=== PATIENT | female | born 2005 | race Caucasian/White ===

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

== ENCOUNTER 2024-01-12 13:36 | Outpatient (REF) | payer MEDICAID, SELFPAY | END 2024-01-12 13:37 | disposition home or self-care (01) | LOC: LBN 13:36 | PROVIDERS: Visit Provider Obstetrics & Gynecology Gynecology | DX: N89.8 Other specified noninflammatory disorders of vagina (principal) | CPT/HCPCS: 87480; 87510; 87660 ==

== ENCOUNTER 2024-02-03 12:32 | Outpatient (REF) | payer MEDICAID, SELFPAY ==
--- OUTSIDE RECORDS SUMMARY | 2024-02-03 12:34 | XMS_ITS | Continuity of Care Document ---
Author Organization [facility] Ambulatory Clinics Address [address] [place] [address] Care Team Providers Care Curb Hop Name Role Phone Barbara Orourke MD Primary Care Physician Encounter [facility] NBR [id number] Date(s): 03/16/23 - 03/16/23 [facility] [address], [place] [address] Encounter Diagnosis URI with cough and congestion(Discharge Diagnosis) - 03/16/23 Discharge Disposition: Home or Self Care Attending Physician: KEREN Porter Allergies, Adverse Reactions, Alerts No Known Allergies Assessment and Plan Extracted from: Title:Office Visit Note Author:KEREN Porter Date:03/16/23 1.??URI with cough and conge stion??J06.9 Short duration typical viral progression without focal bacterial signs. ??Vital signs are normal. 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 Follow-up if not improving. ??Cough medicine prescribed with bronchodilator which hopefully help her stay out of the hospital or respiratory problems as she navigates his viral illness. Ordered: Albuterol (Eqv-ProAir HFA) 90 mcg/inh inhalation aerosol, 2 puffs, Inhale, every 6 hr, # 8.5 g, 0 Refill(s) Tessalon Perles 100 mg oral capsule, 100 mg = 1 cap, Oral, TID, PRN as needed for cough, # 21 cap, 0 Refill(s) SARS-CoV-2 (COVID-19)/Flu/RSV (GeneXpert), Nasopharyngeal Swab, Routine Collect, 03/16/23, Once, Nurse collect, Print Label, URI with cough and congestion, Order for future visit ?? Future Scheduled Tests Laboratory* Urine Culture 01/03/23 * Chlamydia trachomatis and Neisseria gonorrhoeae (GeneXpert) 01/03/23 Immunizations Given and Recorded Vaccine Date Status Refusal Reason varicella virus vaccine 1 10/18/09 Recorded varicella virus vaccine 2 08/30/05 Recorded measles/mumps/rubella virus vaccine 3 10/18/09 Rec orded measles/mumps/rubella virus vaccine 4 08/30/05 Rec orded diphth/tetanus/pertussis,acel/hepB/polio 5 10/18/09 Recorded diphth/tetanus/pertussis,acel/hepB/polio 6 08/30/05 Recorded diphth/tetanus/pertussis,acel/hepB/polio 7 04 Recorded diphth/tetanus/pertussis,acel/hepB/polio 8 04 Recorded pneumococcal 13-valent conjugate vaccine 9 08/30/05 Recorded pneumococcal 13-valent conjugate vaccine 10 04 Recorded pneumococcal 13-valent conjugate vaccine 11 04 Recorded haemophilus b conjugate (PRP-T) vaccine 12 04 Recorded haemophilus b conjugate (PRP-T) vaccine 13 04 Recorded hepatitis B pediatric vaccine 14 04 Recorded 1Result Comment: Unit: Unknown 2Result Comment: Unit: Unknown 3Result Comment: Unit: Unknown 4Result Comment: Unit: Unknown 5Result Comment: Unit: Unknown 6Result Comment: Unit: Unknown 7Result Comment: Unit: Unknown 8Result Comment: Unit: Unknown 9Result Comment: Unit: Unknown 10Result Comment: Unit: Unknown 11Result Comment: Unit: Unknown 12Result Comment: Unit: Unknown 13Result Comment: Unit: Unknown 14Result Comment: Unit: Unknown Medications Albuterol (Eqv-ProAir HFA) 90 mcg/inh inhalation aerosol 2 puffs, Inhale, every 6 hr, # 8.5 g, 0 Refill(s) Start Date: 03/16/23 Stop Date: 04/15/23 Status: Ordered Depo-Provera Contraceptive 150 mg/mL intramuscular suspension 1 Unknown, 0 Refill(s) Start Date: 11/29/21 Status: Ordered fosfomycin 3 g oral granule for reconstitution 3 g = 1 EA, Oral, Once, # 1 packets, 0 Refill(s), [facility]: [id number], 162, cm, 08/15/22 18:08:00 EDT, Height/Length Dosing, 42.64, kg, 01/15/23 20:27:00 EST, Weight Dosing Start Date: 01/15/23 Status: Ordered ondansetron 4 mg oral tablet, disintegrating 4 mg = 1 tab, Oral, TID, # 10 tab, 0 Refill(s), [facility]: [id number], 162, cm, 02/25/23 11:58:00 EST, Height, 40.8, kg, 02/25/23 12:04:00 EST, Weight Dosing Start Date: 02/25/23 Status: Ordered Tessalon Perles 100 mg oral capsule 100 mg = 1 cap, Oral, TID, PRN as needed for cough, # 21 cap, 0 Refill(s) Start Date: 03/16/23 Stop Date: 03/23/23 Status: Ordered Problem List Condition Confirmation Course Effective Dates Status H ealth Status Informant Amenorrhea Confirmed Active Anxiety Confirmed Active Decrease in appetite Confirmed Active Epigastric pain Confirmed Active Lipoma of abdominal wall Confirmed Active Loss of taste Confirmed Active Major depression, single episode Confirmed Active Menometrorrhagia Confirmed Active Nausea Confirmed Active Patient encounter status Confirmed Active Vital Signs Most recent to oldest [Reference Range]: 1 Temperature Tympanic [36.6-38.1 Deg C] 3 7.2 Deg C (03/16/23 5:57 PM) Peripheral Pulse Rate [60-100 bpm] 112 b pm *HI* (03/16/23 5:57 PM) Blood Pressure [90-140/60-90 mmHg] 114/4 3mmHg (03/16/23 5:57 PM) Mean Arterial Pressure, Cuff [70-110 mmH g] 67 mmHg *LOW* (03/16/23 5:57 PM) Weight 42.00 kg (03/16/23 5:57 PM) Weight Measured (lbs) 92.594 lb (03/16/23 5:57 PM) Weight Dosing 42.000 kg (03/16/23 5:57 PM) Weight Percentile 0.58 1 (03/16/23 5:57 PM) 1Result Comment: ^~:!Percentile Source -[facility] [place] Social History Social History Type Response Tobacco Never tobacco user, smokeless tobacco daily Tobacco Use:. Sex Female Hospital Discharge Instructions Patient Education 03/16/2023 17:13:10 Viral Respiratory Infection, Anlt-Fg-Uvhq Viral Respiratory Infection A viral respiratory infection is an illness that affects parts of the body that are used for breathing. These include the lungs, nose, and throat. It is caused by a germ called a virus. Some examples of this kind of infection are: ??? A cold. ??? The flu (influenza). ??? A respiratory syncytial virus (RSV) infection. What are the causes? This condition is caused by a virus. It spreads from person to person. You can get the virus if: ??? You breathe in droplets from someone who is sick. ??? You come in contact with people who are sick. ??? You touch mucus or other fluid from a person who is sick. What are the signs or symptoms? Symptoms of this condition include: ??? A stuffy or runny nose. ??? A sore throat. ??? A cough. ??? Shortness of breath. ??? Trouble breathing. ??? Yellow or green fluid in the nose. Other symptoms may include: ??? A fever. ??? Sweating or chills. ??? Tiredness (fatigue). ??? Achy muscles. ??? A headache. How is this treated? This condition may be treated with: ??? Medicines that treat viruses. ??? Medicines that make it easy to breathe. ??? Medicines that are sprayed into the nose. ??? Acetaminophen or NSAIDs, such as ibuprofen, to treat fever. Follow these instructions at home: Managing pain and congestion ??? Take zdjq-oto-oyhbopt and prescription medicines only as told by your doctor. ??? If you have a sore throat, gargle with salt water. Do this 3???4 times a day or as needed. ??? To make salt water, dissolve ?1 tsp (3???6 g) of salt in 1 cup (237 mL) of warm water. Makesure that all the salt dissolves. ??? Use nose drops made from salt water. This helps with stuffiness (congestion). It also helps soften the skin around your nose. ??? Take 2 tsp (10 mL) of honey at bedtime to lessen coughing at night. ??? Do not give honey to children who are younger than 1 year old. ??? Drink enough fluid to keep your pee (urine) pale yellow. General instructions ??? Rest as much as possible. ??? Do not drink alcohol. ??? Do not smoke or use any products that contain nicotine or tobacco. If you need help quitting, ask your doctor. ??? Keep all follow-up visits. How is this prevented? Get a flu shot every year. Ask your doctor when you should get your flu shot. ??? Do not let other people get your germs. If you are sick: ??? Wash your hands with soap and water often. Wash your hands after you cough or sneeze. Wash hands for at least 20 seconds. If you cannot use soap and water, use hand beam saw operator. ??? Cover your mouth when you cough. Cover your nose and mouth when you sneeze. ??? Do not share cups or eating utensils. ??? Clean commonly used objects often. Clean commonly touched surfaces. ??? Stay home from work or school. ??? Avoid contact with people who are sick during cold and flu season. This is in fall and winter. Get help if: ??? Your symptoms last for 10 days or longer. ??? Your symptoms get worse over time. ??? You have very bad pain in your face or forehead. ??? Parts of your jaw or neck get very swollen. ??? You have shortness of breath. Get help right away if: ??? You feel pain or pressure in your chest. ??? You have trouble breathing. ??? You faint or feel like you will faint. ??? You keep vomiting and it gets worse. ??? You feel confused. These symptoms may be an emergency. Get help right away. Call your local emergency services (911 inthe [place] ??? Do not wait to see if the symptoms will go away. ??? Do not drive yourself to the hospital. Summary ??? A viral respiratory infection is an illness that affects parts of the body that are used for breathing. ??? Examples of this illness include a cold, the flu, and a respiratory syncytial virus (RSV) infection. ??? The infection can cause a runny nose, cough, sore throat, and fever. ??? Follow what your doctor tells you about taking medicines, drinking lots of fluid, washing your hands, resting at home, and avoiding people who are sick. This information is not intended to replace advice given to you by your health care provider. Make sure you discuss any questions you have with your health care provider. Document Revised: 05/03/2021 Document Reviewed: 05/03/2021 [employer] Patient Education ?? 2022 [email or web address]. Physician Outpatient Note * KEREN Porter: PERFORM Event Display: Office Clinic Note Physician Authored Date: [id number] JOSE ROBERTO BALBUENA :2005 Age:18 years Sex:Female Visit Date:03/16/2023 Primary Care Physician: Barbara Orourke MD Chief Complaint yesterday woke up with sore throat,lungs hurt to breathe and her throat hurts when she coughs. beenthis way for about a day now. History of Present Illness Patient started yesterday with sore throat and cough. ??Hurts to cough now. ??Cough is been nonproductive. ??No associated fever, chills. 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 ??Home COVID testing was negative.?? She denies any runny nose. ??No headache.?? She hashad similar symptoms in the past and she is concerned about pneumonia. Physical Exam Vitals & Measurements T:??37.2?C ??(Tympanic)?? HR:??112??(Peripheral)?? BP:??114/43?? SpO2:??100%?? WT:??0.58??(Percentile)?? WT:??42.00??kg?? General: Alert and oriented, well nourished, no acute distress. Eye:??Pupils are reactive, conjunctiva clear. HENT: Normocephalic, clear tympanic membranes, throat clear no exudate and uvula is midline Neck: Supple, non-tender, no lymphadenopathy Lungs: Clear to auscultation, non-labored respiration. Heart: Normal rate, regular rhythm, no murmur, gallop or edema. Abdomen: Soft, non-tender, non-distended, no masses. Musculoskeletal: Normal range of motion and strength, no tenderness or swelling. Skin: Skin is warm, dry, no rashes or lesions in examined areas. Neurologic: Awake, alert and oriented X3, normal cognition and interaction. Psychiatric: Cooperative, appropriate mood and affect. Assessment/Plan 1.??URI with cough and congestion??J06.9 Short duration typical viral progression without focal bacterial signs. ??Vital signs are normal. 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 Follow-up if not improving. ??Cough medicine prescribed with bronchodilator which hopefully help her stay out of the hospital or respiratory problems as she navigates his viral illness. Ordered: Albuterol (Eqv-ProAir HFA) 90 mcg/inh inhalation aerosol, 2 puffs, Inhale, every 6 hr, # 8.5 g, 0 Refill(s) Tessalon Perles 100 mg oral capsule, 100 mg = 1 cap, Oral, TID, PRN as needed for cough, # 21 cap, 0 Refill(s) SARS-CoV-2 (COVID-19)/Flu/RSV (GeneXpert), Nasopharyngeal Swab, Routine Collect, 03/16/23, Once, Nurse collect, Print Label, URI with cough and congestion, Order for future visit ?? Patient Instructions Recommend fluids, rest, use cough medicine as needed use inhaler every 4-6 hours for the next 4 days. ??We will call with your test results tomorrow. Future Orders SARS-CoV-2 (COVID-19)/Flu/RSV (GeneXpert), Nasopharyngeal Swab, Routine Collect, 03/16/23, Once, Nurse collect, Print Label, URI with cough and congestion, Order for future visit Patient Education Viral Respiratory Infection, Ypet-Yf-Hhgx Problem List/Past Medical History Ongoing Amenorrhea Anxiety Decrease in appetite Epigastric pain Lipoma of abdominal wall Loss of taste Major depression, single episode Menometrorrhagia Nausea Patient encounter status Historical No qualifying data Medications Albuterol (Eqv-ProAir HFA) 90 mcg/inh inhalation aerosol, 2 puffs, Inhale, every 6 hr Depo-Provera Contraceptive 150 mg/mL intramuscular suspension fosfomycin 3 g oral granule for reconstitution, 3 g= 1 EA, Oral, Once ondansetron 4 mg oral tablet, disintegrating, 4 mg= 1 tab, Oral, TID Tessalon Perles 100 mg oral capsule, 100 mg= 1 cap, Oral, TID, PRN Allergies No Known Allergies No Known Medication Allergies Social History Alcohol Never Electronic Cigarette/Vaping Electronic Cigarette Use: Use, within last 90 days. Use per Day: 1-25 Inhales/day. Tobacco Never tobacco user, smokeless tobacco daily Tobacco Use:. Immunizations Vaccine Date Status varicella virus vaccine 10/18/2009 Recorded Comments : Unit: Unknown measles/mumps/rubella virus vaccine 10/18/2009 Recorded Comments : Unit: Unknown diphth/tetanus/pertussis,acel/hepB/polio 10/18/2009 Recorded Comments : Unit: Unknown varicella virus vaccine 08/30/2005 Recorded Comments : Unit: Unknown measles/mumps/rubella virus vaccine 08/30/2005 Recorded Comments : Unit: Unknown pneumococcal 13-valent conjugate vaccine 08/30/2005 Recorded Comments : Unit: Unknown diphth/tetanus/pertussis,acel/hepB/polio 08/30/2005 Recorded Comments : Unit: Unknown pneumococcal 13-valent conjugate vaccine 2004 Recorded Comments : Unit: Unknown haemophilus b conjugate (PRP-T) vaccine 2004 Recorded Comments : Unit: Unknown diphth/tetanus/pertussis,acel/hepB/polio 2004 Recorded Comments : Unit: Unknown diphth/tetanus/pertussis,acel/hepB/polio 2004 Recorded Comments : Unit: Unknown haemophilus b conjugate (PRP-T) vaccine 2004 Recorded Comments : Unit: Unknown pneumococcal 13-valent conjugate vaccine 2004 Recorded Comments : Unit: Unknown hepatitis B pediatric vaccine 2004 Recorded Comments : Unit: Unknown Electronically Signed on 03/16/23 06:24 PM KEREN Porter Outpatient Summary note * KEREN Porter: PERFORM Event Display: Ambulatory Patient Summary Authored Date: [id number] JOSE ROBERTO BALBUENA :2005 Age:18 years Sex:Female Visit Date:03/16/2023 Primary Care Physician: Barbara Orourke MD Ambulatory Visit Instructions We would like to thank you for allowing us to assist you with your healthcare needs. The following includes patient education materials and information regarding your injury/illness. Your Next Steps Instructions From Your Care Team Recommend fluids, rest, use cough medicine as needed use inhaler every 4-6 hours for the next 4 days. ??We will call with your test results tomorrow. You Need to Complete the Following SARS-CoV-2 (COVID-19)/Flu/RSV (GeneXpert), Nasopharyngeal Swab, Routine Collect, 03/16/23, Once, Nurse collect, Print Label, URI with cough and congestion, Order for future visit Medications What How Much When Why Instructions New albuterol (Albuterol (Eqv-ProAir HFA) 90 mcg/ inh inhalation aerosol) 2 Puffs Inhale (breathe in) Every 6 hours URI with cough and congestion Duration: 30 Days Printed Prescription New benzonatate (Tessalon Perles 100 mg oral capsule) 1 Capsules Oral (given by mouth) 3 times a day as needed for as needed for cough URI with cough and congestion Duration: 7 Days Printed Prescription Unchanged fosfomycin (fosfomycin 3 g oral granule for reconstitution) 1 Each Oral (given by mouth) Once Dysuria Unchanged medroxyPROGESTERone (Depo-Provera Contraceptive 150 mg/ mL intramuscular suspension) 1 Unknown ?? Unchanged ondansetron (ondansetron 4 mg oral tablet, disintegrating) 1 tab Oral (given by mouth) 3 times a day Influenza-like illness Your Summary Your Diagnosis URI with cough and congestion Problems Ongoing - Any problem that you are currently receiving treatment for. Amenorrhea Anxiety Decrease in appetite Epigastric pain Lipoma of abdominal wall Loss of taste Major depression, single episode Menometrorrhagia Nausea Patient encounter status Your Care Team Attending Physician - KEREN Porter Primary Care Physician - Barbara Orourke MD Discharge Vitals Temperature??(Tympanic) 99.0 ??F (37.2 ??C) Heart Rate??(Peripheral) 112 Blood Pressure?? 114/43?? Weight?? 92.61 lb (42.00 kg) Allergies No Known Allergies No Known Medication Allergies Education Materials Viral Respiratory Infection A viral respiratory infection is an illness that affects parts of the body that are used for breathing. These include the lungs, nose, and throat. It is caused by a germ called a virus. Some examples of this kind of infection are: ? A cold. ? The flu (influenza). ? A respiratory syncytial virus (RSV) infection. What are the causes? This condition is caused by a virus. It spreads from person to person. You can get the virus if: ? You breathe in droplets from someone who is sick. ? You come in contact with people who are sick. ? You touch mucus or other fluid from a person who is sick. What are the signs or symptoms? Symptoms of this condition include: ? A stuffy or runny nose. ? A sore throat. ? A cough. ? Shortness of breath. ? Trouble breathing. ? Yellow or green fluid in the nose. Other symptoms may include: ? A fever. ? Sweating or chills. ? Tiredness (fatigue). ? Achy muscles. ? A headache. How is this treated? This condition may be treated with: ? Medicines that treat viruses. ? Medicines that make it easy to breathe. ? Medicines that are sprayed into the nose. ? Acetaminophen or NSAIDs, such as ibuprofen, to treat fever. Follow these instructions at home: Managing pain and congestion ? Take dwhl-owq-ptepzmi and prescription medicines only as told by your doctor. ? If you have a sore throat, gargle with salt water. Do this 3???4 times a day or as needed. ? To make salt water, dissolve ?1 tsp (3???6 g) of salt in 1 cup (237 mL) of warm water. Make sure that all the salt dissolves. ? Use nose drops made from salt water. This helps with stuffiness (congestion). It also helps soften the skin around your nose. ? Take 2 tsp (10 mL) of honey at bedtime to lessen coughing at night. ? Do not give honey to children who are younger than 1 year old. ? Drink enough fluid to keep your pee (urine) pale yellow. General instructions ? Rest as much as possible. ? Do not drink alcohol. ? Do not smoke or use any products that contain nicotine or tobacco. If you need help quitting, ask your doctor. ? Keep all follow-up visits. How is this prevented? Get a flu shot every year. Ask your doctor when you should get your flu shot. ? Do not let other people get your germs. If you are sick: ? Wash your hands with soap and water often. Wash your hands after you cough or sneeze. Wash hands for at least 20 seconds. If you cannot use soap and water, use hand beam saw operator. ? Cover your mouth when you cough. Cover your nose and mouth when you sneeze. ? Do not share cups or eating utensils. ? Clean commonly used objects often. Clean commonly touched surfaces. ? Stay home from work or school. ? Avoid contact with people who are sick during cold and flu season. This is in fall and winter. Get help if: ? Your symptoms last for 10 days or longer. ? Your symptoms get worse over time. ? You have very bad pain in your face or forehead. ? Parts of your jaw or neck get very swollen. ? You have shortness of breath. Get help right away if: ? You feel pain or pressure in your chest. ? You have trouble breathing. ? You faint or feel like you will faint. ? You keep vomiting and it gets worse. ? You feel confused. These symptoms may be an emergency. Get help right away. Call your local emergency services (911 int [place] ? Do not wait to see if the symptoms will go away. ? Do not drive yourself to the hospital. Summary ? A viral respiratory infection is an illness that affects parts of the body that are used for breathing. ? Examples of this illness include a cold, the flu, and a respiratory syncytial virus (RSV) infection. ? The infection can cause a runny nose, cough, sore throat, and fever. ? Follow what your doctor tells you about taking medicines, drinking lots of fluid, washing your hands, resting at home, and avoiding people who are sick. This information is not intended to replace advice given to you by your health care provider. Make sure you discuss any questions you have with your health care provider. Document Revised: 05/03/2021 Document Reviewed: 05/03/2021 Else[employer] Patient Education ?? 2022 [employer] Electronically Signed on: 03/16/2023 18:13 ESTSigned by:BT Patient Care team information Care Team Personnel Name: Barbara Orourke MD Position: No Access Member Role: Primary Care Physician Address: Address: [address] [place] [id number] Name: Krystal Kurtz APRN Position: No Access Member Role: Nurse Practitioner Address: Address: [address] [place] [id number] Care Team Related Persons Name: FAIZA BALBUENA Name: ALVARO BALBUENA Address: [address] [place], [place] [id number] Name: CAROLINA BALBUENA Address: [facility]
--- OUTSIDE RECORDS SUMMARY | 2024-02-03 12:34 | XMS_ITS | Continuity of Care Document ---
Author Organization [facility] Ambulatory Clinics Address [address] [place] [address] Care Team Providers Care Product Management Manager Name Role Phone JAMES ELIZABETH Primary Care Physician Encounter [facility] NBR [id number] Date(s): 12/24/23 - 12/24/23 [facility] Ambulatory Clinics [address] [place] [address]- [place] Encounter Diagnosis Vaginitis(Discharge Diagnosis) - 12/24/23 Acute vaginitis(Final) - Discharge Disposition: Home or Self Care Attending Physician: Hiwot Pelaez PA-C Allergies, Adverse Reactions, Alerts Substance Criticality Severity Reaction Reaction Severity Status penicillin High criticality Moderate Rash Ac tive Assessment and Plan Extracted from: Title:[facility] Urgent Care Office Visit Note Author:Clarissa Pelaez PA-C Date:12/24/23 1.??Vaginitis??N76.0 ??Patient presenting with vaginal itching, burning,??discharge.?? She is not experiencing any urgency or frequency.?? No pelvic pain.?? No new sexual partners, had negative STI screening 3 weeks ago.?? She is very prone to??yeast infections as well as bacterial vaginosis and??was recently prescribed 3 different rounds of antibiotics.?? Recommended??obtaining a vaginitis panel today which she was receptive to. ??Patient opted to??perform a self swab and deferred LOCOMOTIVE INSPECTOR??exam.?? I will follow-up with her pending results of the studies. ??Encourage she stay well- hydrated in the meantime. ??Wash the vaginal area with water only and avoid any scented??products, lubricants.?? Recheck as needed??if worsening Ordered: Xpress MVP (GeneXpert), Vaginal, Routine Collect, 12/24/23, Once, Nurse collect, Vaginitis, Order for future visit ?? Future Scheduled Tests Laboratory* Urine Culture 01/03/23 * Chlamydia trachomatis and Neisseria gonorrhoeae (GeneXpert) 01/03/23 Radiology* US Transvaginal Non-OB 06/28/23 * CT Abdomen and Pelvis w/ Contrast 08/15/23 Immunizations Given and Recorded Vaccine Date Status [...] Unit: Unknown 14Result Comment: Unit: Unknown Medications busPIRone 5 mg oral tablet TAKE 1/2 TO 1 TABLET BY MOUTH UP TO THREE TIMES DAILY NEEDED Start Date: 12/01/23 Status: Ordered Depo-Provera Contraceptive 150 mg/mL intramuscular suspension 1 Unknown, 0 Refill(s) Start Date: 11/29/21 Status: Ordered FLUoxetine 0 Refill(s) Start Date: 10/28/23 Status: Ordered hydrOXYzine 0 Refill(s) Start Date: 10/28/23 Status: Ordered hyoscyamine 0 Refill(s) Start Date: 10/28/23 Status: Ordered metroNIDAZOLE 0.75% vaginal gel with applicator INSERT 1 APPLICATORFUL VAGINALLY TWICE DAILY FOR 5 DAYS Start Date: 12/01/23 Status: Ordered Miconazole 7 vaginal cream with applicator 1 alice, Vaginal, every night at bedtime, # 45 g, 0 Refill(s), Pharmacy: [facility] #[id number], 162, cm, 12/15/23 22:27:00 EST, Height, 45, kg, 12/15/23 22:29:00 EST, Weight Dosing Start Date: 12/24/23 Status: Ordered ondansetron 4 mg oral tablet, disintegrating 4 mg = 1 tab, Oral, TID, # 10 tab, 0 Refill(s), Pharmacy: [facility] #[id number], 162, cm, 02/25/23 11:58:00 EST, Height, 40.8, kg, 02/25/23 12:04:00 EST, Weight Dosing Start Date: 02/25/23 Status: Ordered Problem List Condition Confirmation Course Effective Dates Status H ealth Status Informant Amenorrhea Confirmed Active Anxiety Confirmed Active Decrease in appetite Confirmed Active Epigastric pain Confirmed Active Lipoma of abdominal wall Confirmed Active Loss of taste Confirmed Active Major depression, single episode Confirmed Active Menometrorrhagia Confirmed Active Nausea Confirmed Active Patient encounter status Confirmed Active Tonsillitis Confirmed Active Vital Signs Most recent to oldest [Reference Range]: 1 Temperature Temporal Artery [36-38 Deg C ] 36.7 Deg C (12/24/23 11:40 AM) Peripheral Pulse Rate [60-100 bpm] 96 bp m (12/24/23 11:40 AM) Respiratory Rate [12-24 br/min] 16 br/mi n (12/24/23 11:40 AM) Blood Pressure [90-120/60-80 mmHg] 95/52 mmHg (12/24/23 11:40 AM) Mean Arterial Pressure, Cuff [65-140 mmH g] 66 mmHg (12/24/23 11:40 AM) Social History Social History Type Response Tobacco Never tobacco user, smokeless tobacco daily Tobacco Use:. Sex Female Sex Representation Female (finding) Physician Outpatient Note * Hiwot Pelaez PA-C: PERFORM Event Display: Office Clinic Note Physician Authored Date: [id number] JOSE ROBERTO BALBUENA Elly :2005 Age:18 years Sex:Female Visit Date:12/24/2023 Primary Care Physician: JAMES ELIZABETH Chief Complaint X2 months yeast infections/BV. green/yellow discharge with itchyness and burning. Has been on antibiotics for strep 3 times. Last treated for yeast/bv in september. History of Present Illness This is a 18-year-old female who presents for evaluation of possible yeast infection or BV. ??Patient notes that she is very prone??to yeast infections and bacterial vaginosis.?? She has taken 3 rounds of antibiotics over the last several months??due to recurrent strep infections.?? Over the last week she has had vaginal itching, burning that is persistent as well as??a whitish, yellowish discharge.?? She has not had any pelvic pain. ??No urinary urgency, frequency. ??Symptoms do not feel similar to previous UTI.?No fever, chills, nausea, vomiting, malaise. ??She denies any new sexual partners??and??had a negative STI test??3 weeks ago. Physical Exam Vitals & Measurements T:??36.7?C ??(Temporal Artery)?? HR:??96??(Peripheral)?? RR:??16?? BP:??95/52?? SpO2:??99%?? General: A&O x 3, well-built and hydrated, no acute distress Heart: normal S1S2, no murmurs, rubs, gallops Lungs: equal and symmetric respiratory effort, lungs clear to auscultation without wheezes, rales, rhonchi Abdomen: soft, non-distended, bowel sounds normoactive, no tenderness, rebound, guarding, rigidity LOCOMOTIVE INSPECTOR: deferred Assessment/Plan 1.??Vaginitis??N76.0 ??Patient presenting with vaginal itching, burning,??discharge.?? She is not experiencing any urgency or frequency.?? No pelvic pain.?? No new sexual partners, had negative STI screening 3 weeks ago.?? She is very prone to??yeast infections as well as bacterial vaginosis and??was recently prescribed 3 different rounds of antibiotics.?? Recommended??obtaining a vaginitis panel today which she was receptive to. ??Patient opted to??perform a self swab and deferred LOCOMOTIVE INSPECTOR??exam.?? I will follow-up with her pending results of the studies. ??Encourage she stay well-hydrated in the meantime. ??Wash thevaginal area with water only and avoid any scented??products, lubricants.?? Recheck as needed??if worsening Ordered: Xpress MVP (GeneXpert), Vaginal, Routine Collect, 12/24/23, Once, Nurse collect, Vaginitis, Order for future visit ?? Future Orders Xpress MVP (GeneXpert), Vaginal, Routine Collect, 12/24/23, Once, Nurse collect, Vaginitis, Order for future visit Problem List/Past Medical History Ongoing Amenorrhea Anxiety Decrease in appetite Epigastric pain Lipoma of abdominal wall Loss of taste Major depression, single episode Menometrorrhagia Nausea Patient encounter status Tonsillitis Historical No qualifying data Medications busPIRone 5 mg oral tablet Depo-Provera Contraceptive 150 mg/mL intramuscular suspension FLUoxetine hydrOXYzine hyoscyamine metroNIDAZOLE 0.75% vaginal gel with applicator ondansetron 4 mg oral tablet, disintegrating, 4 mg= 1 tab, Oral, TID Allergies penicillin??(Rash) Social History Alcohol Never Electronic Cigarette/Vaping Electronic [...] Comments : Unit: Unknown Electronically Signed on 12/24/2023 11:54 EST Hiwot Pelaez PA-C Patient Care team information Care Team Personnel Name: Krystal Kurtz APRN Position: Physician Member Role: Nurse Practitioner Address: [address] [place] [address] [place] [address] Name: JAMES ELIZABETH Position: No Access Member Role: Primary Care Physician Address: [facility] [address] Care Team Related Persons Name: FAIZA BALBUENA Insurance Providers Guarantor name: JOSE ROBERTO BALBUENA Health Plan Information #: 1 Payer: [place] Member Number: [id number] Policy Number: NA Health Plan Information #: 2 Payer: [place] Member Number: [id number] Policy Number: [place] Health Plan Information #: 3 Payer: [place] Member Number: [id number] Policy Number: NA
--- OUTSIDE RECORDS SUMMARY | 2024-02-03 12:34 | XMS_ITS | Continuity of Care Document ---
Author Organization [facility] Address [address] [place] [address] Care Team Providers Care Case Preparer And Liner Name Role Phone MELVA WATTS APRN Primary Care Physician [phone] Encounter [facility] NBR [id number] Date(s): 06/27/23 - 06/27/23 [facility] [address] [place] [address]- Discharge Disposition: Home or Self Care Attending Physician: Hiwot Pelaez PA-C Admitting Physician: Hiwot Pelaez PA-C Allergies, Adverse Reactions, Alerts No Known Allergies Assessment and Plan Future Appointments Future Scheduled Tests Laboratory* Urine Culture 01/03/23 [...] every 6 hr, # 8.5 g, 0 Refill(s), Pharmacy: [facility] #[id number], 162, cm, 02/25/23 11:58:00 EST, Height, 42, kg, 03/16/23 18:01:00 EST, Weight Dosing Start Date: 03/17/23 Stop Date: 04/16/23 Status: Ordered Depo-Provera Contraceptive 150 mg/mL intramuscular suspension 1 Unknown, 0 Refill(s) Start Date: 11/29/21 Status: Ordered ondansetron 4 mg oral tablet, disintegrating 4 mg = 1 tab, Oral, TID, # 10 tab, 0 Refill(s), Pharmacy: [facility] #[id number], 162, cm, 02/25/23 11:58:00 EST, Height, 40.8, [...] Confirmed Active Patient encounter status Confirmed Active Results Laboratory List Name Date Xpress MVP (GeneXpert) (Vaginitis PCR Pa adam) 06/27/23 Most recent to oldest [Reference Range]: 1 Bacterial Vaginosis MVP (GeneXpert) [Neg ative] Negative (06/27/23 8:10 PM) Elvira glab-krus MVP (GeneXpert) [Not D etected] Not Detected (06/27/23 8:10 PM) Elvira group MVP (GeneXpert) [Not Detec khari] Not Detected (06/27/23 8:10 PM) Trichomonas vaginalis MVP (GeneXpert) [N ot Detected] Not Detected (06/27/23 8:10 PM) Orders for Microbiology Reports Name Date Urine Culture 06/27/23 Microbiology Reports TEST:Urine Culture STATUS:Order in Progress BODY SITE: SOURCE:Urine, Clean Catch COLLECTED DATE/TIME:06/27/23 8:10 PM PRELIMINARY REPORT No growth first am read Social History Social History Type Response Tobacco Never tobacco user, smokeless tobacco daily Tobacco Use:. Sex Female Patient Care team information Care Team Personnel Name: MELVA WATTS APRN Position: No Access Member Role: Primary Care Physician Address: Address: [address] [address] Name: Krystal Kurtz APRN Position: Physician Member Role: Nurse Practitioner Address: Address: [address] [place] [address] [address] [place], [place] [address] Care Team Related Persons Name: FAIZA BALBUENA Name: ALVARO BALBUENA Address: [address] [place], [place] [id number] Name: CAROLINA BALBUENA Address: [facility]
--- OUTSIDE RECORDS SUMMARY | 2024-02-03 12:34 | XMS_ITS | Continuity of Care Document ---
Author Organization [facility] Address [address] [place] [address] Care Team Providers Care Herb Grower Name Role Phone MELVA WATTS APRN Primary Care Physician [phone] Encounter [facility] NBR [id number] Date(s): 06/27/23 - 06/27/23 [facility] [address] [place], [place] [address] Discharge Disposition: Home or Self Care Attending Physician: MELVA WATTS APRN Admitting Physician: MELVA WATTS APRN Referring Physician: MELVA WATTS APRN Allergies, Adverse Reactions, Alerts No Known Allergies [...] hr, # 8.5 g, 0 Refill(s), Pharmacy: [facility] #[id number], 162, cm, 02/25/23 11:58:00 EST, Height, 42, kg, 03/16/23 18:01:00 EST, Weight Dosing Start Date: 03/17/23 Stop Date: 04/16/23 Status: Ordered Depo-Provera Contraceptive 150 mg/mL intramuscular suspension 1 Unknown, 0 Refill(s) Start Date: 11/29/21 Status: Ordered ondansetron 4 mg oral tablet, disintegrating 4 mg = 1 tab, Oral, TID, # 10 tab, 0 Refill(s), Pharmacy: [facility] #[id number], 162, cm, 02/25/23 11:58:00 EST, Height, 40.8, [...] Confirmed Active Results Laboratory List Name Date Urinalysis with Micro if Indicated and C ulture if Indicated 06/27/23 Amylase Level 06/27/23 CBC w/ Diff 06/27/23 Comprehensive Metabolic Panel 06/27/23 Lipase Level 06/27/23 Automated Diff 06/27/23 Most recent to oldest [Reference Range]: 1 WBC [4.8-10.8 K/mcL] 4.4 K/mcL *LOW* (06/27/23 3:46 PM) RBC [4.20-5.40 Million/mcL] 4.79 Million /mcL (06/27/23 3:46 PM) Neutro Auto [42.2-75.2 %] 60.9 % (06/27/23 3:46 PM) Lymph Auto [20.5-51.1 %] 25.6 % (06/27/23 3:46 PM) Dawson Auto [1.7-9.3 %] 9.1 % (06/27/23 3:46 PM) Basophil Auto [0.0-0.8 %] 1.3 % *HI* (06/27/23 3:46 PM) BUN [7-25 mg/dL] 9 mg/dL (06/27/23 3:46 PM) UA Color [Yellow] Yellow (06/27/23 3:50 PM) Glucose Level [70-109 mg/dL] 93 mg/dL (06/27/23 3:46 PM) Potassium Level [3.5-5.1 mmol/L] 3.8 mmo l/L (06/27/23 3:46 PM) Baso Absolute [0.0-0.2 K/mcL] 0.1 K/mcL (06/27/23 3:46 PM) MCV [81.0-99.0 fL] 86.0 fL (06/27/23 3:46 PM) UA Urobilinogen [0.2] 0.2 (06/27/23 3:50 PM) UA Bili [Negative] Negative (06/27/23 3:50 PM) UA Ketones [Negative] Trace *ABN* (06/27/23 3:50 PM) AST [13-39 IntlUnit/L] 17 IntlUnit/L (06/27/23 3:46 PM) Amylase Level [29-103 unit/L] 48 unit/L (06/27/23 3:46 PM) ALT [7-52 IntlUnit/L] 11 IntlUnit/L (06/27/23 3:46 PM) MCHC [32.0-37.0 g/dL] 34.5 g/dL (06/27/23 3:46 PM) Osmolality [275-295 mOsm/kg] 274 mOsm/kg *LOW* (06/27/23 3:46 PM) Sodium Level [136-145 mmol/L] 138 mmol/L (06/27/23 3:46 PM) UA Leuk Est [Negative] Negative (06/27/23 3:50 PM) Lymph Absolute [1.2-3.4 K/mcL] 1.1 K/mcL *LOW* (06/27/23 3:46 PM) UA Nitrite [Negative] Negative (06/27/23 3:50 PM) UA Glucose [Negative] Negative (06/27/23 3:50 PM) Hct [37.0-47.0 %] 41.2 % (06/27/23 3:46 PM) Lipase Level [11-82 unit/L] 23 unit/L 1 (06/27/23 3:46 PM) Calcium Level [8.6-10.3 mg/dL] 9.6 mg/dL (06/27/23 3:46 PM) Dawson Absolute [0.1-0.6 K/mcL] 0.4 K/mcL (06/27/23 3:46 PM) Albumin Level [3.5-5.7 g/dL] 5.1 g/dL (06/27/23 3:46 PM) Protein Total [6.4-8.9 g/dL] 7.5 g/dL (06/27/23 3:46 PM) UA Protein [Negative] Negative (06/27/23 3:50 PM) MCH [27.0-31.0 pg] 29.7 pg (06/27/23 3:46 PM) Neutro Absolute [1.4-6.5 K/mcL] 2.7 K/mc L (06/27/23 3:46 PM) Bilirubin Total [0.3-1.0 mg/dL] 0.6 mg/d L (06/27/23 3:46 PM) Hgb [12.0-16.0 g/dL] 14.2 g/dL (06/27/23 3:46 PM) Alk Phos [34-104 IntlUnit/L] 85 IntlUnit /L (06/27/23 3:46 PM) UA Blood [Negative] Negative (06/27/23 3:50 PM) MPV [7.4-10.4 fL] 8.9 fL (06/27/23 3:46 PM) UA Spec Grav [1.001-1.030] 1.020 (06/27/23 3:50 PM) Platelets [130-400 K/mcL] 265 K/mcL (06/27/23 3:46 PM) CO2 [21-31 mmol/L] 25 mmol/L (06/27/23 3:46 PM) Eos Absolute [0.0-0.2 K/mcL] 0.1 K/mcL (06/27/23 3:46 PM) UA pH [5.00-9.00] 7.00 (06/27/23 3:50 PM) UA Appear [Clear] Clear (06/27/23 3:50 PM) Chloride Level [98-107 mmol/L] 106 mmol/ L (06/27/23 3:46 PM) RDW-CV [11.5-14.5 %] 12.6 % (06/27/23 3:46 PM) A/G Ratio [1.0-2.5 g/dL] 2.1 g/dL (06/27/23 3:46 PM) BUN/Creat Ratio [8.0-20.0] 15.0 (06/27/23 3:46 PM) Globulin [2.3-3.5 g/dL] 2.4 g/dL (06/27/23 3:46 PM) Urine Srce Clean Catch (06/27/23 3:50 PM) Creatinine Level [0.60-1.20 mg/dL] 0.60 mg/dL (06/27/23 3:46 PM) Anion Gap [3.0-12.0] 7.0 (06/27/23 3:46 PM) Eos, Auto [0.00-3.00 %] 3.10 % *HI* (06/27/23 3:46 PM) eGFR CKD-EPI [>=60 mL/min/1.73 m2] 133 m L/min/1.73 m2 (06/27/23 3:46 PM) 1Interpretive Data: Q-ascwec-r-benzoquinone imine (meabolite of Acetaminophen) will generate erroneously low lipase results in samples for patients that have taken toxic doses of acetaminophen. Social History Social History Type Response Tobacco Never tobacco user, smokeless tobacco daily Tobacco Use:. Sex Female Patient Care team information Care Team Personnel Name: MELVA WATTS APRN Position: No Access Member Role: Primary Care Physician Address: Address: [address] [facility], [place] [address] Name: Krystal Kurtz APRN Position: Physician Member Role: Nurse Practitioner Address: Address: [address] [place] [address] [address] [place], [place] [address] Care Team Related Persons Name: FAIZA BALBUENA Name: ALVARO BALBUENA Address: [address] [place], [place] [id number] Name: CAROLINA BALBUENA Address: [facility]
--- OUTSIDE RECORDS SUMMARY | 2024-02-03 12:34 | XMS_ITS | Continuity of Care Document ---
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 Name Role Phone Christina Cardoso Primary Care Physician Encounter [facility] FIN NBR [id number] Date(s): 08/15/22 - 08/15/22 [facility] [address], [place] [address] Encounter Diagnosis Abdominal pain, left lower quadrant(Discharge Diagnosis) - 08/15/22 Discharge Disposition: Home or Self Care Attending Physician: Lokesh Solorio MD Admitting Physician: Lokesh Solorio MD Allergies, Adverse Reactions, Alerts No Known Allergies Functional Status 08/15/22 Family Member Travel History No recent t ravel Recent Travel History No recent travel Other exposure to Infectious Disease Non e Immunizations Given and Recorded Vaccine Date Status [...] Unit: Unknown 14Result Comment: Unit: Unknown Medications Depo-Provera Contraceptive 150 mg/mL intramuscular suspension 1 Unknown, 0 Refill(s) Start Date: 11/29/21 Status: Ordered Mental Status 08/15/22 Eye Opening Response [place] Spontaneous ly Best Verbal Response [place] Oriented Best Motor Response Belkis Obeys comman ds [place] Coma Score 15 Problem List Condition Confirmation Course Effective Dates Status H ealth Status Informant Amenorrhea Confirmed Active Anxiety Confirmed Active Decrease in appetite Confirmed Active Epigastric pain Confirmed Active Lipoma of abdominal wall Confirmed Active Loss of taste Confirmed Active Major depression, single episode Confirmed Active Menometrorrhagia Confirmed Active Nausea Confirmed Active Patient encounter status Confirmed Active Results Laboratory List Name Date CBC w/ Diff 08/15/22 Comprehensive Metabolic Panel 08/15/22 Lipase Level 08/15/22 Automated Diff 08/15/22 Test Urine Qual 08/15/22 Urinalysis with Micro if Indicated and C ulture if Indicated 08/15/22 Most recent to oldest [Reference Range]: 1 WBC [4.8-10.8 K/mcL] 4.9 K/mcL (08/15/22 7:06 PM) RBC [4.20-5.40 Million/mcL] 4.75 Million /mcL (08/15/22 7:06 PM) Neutro Auto [42.2-75.2 %] 66.1 % (08/15/22 7:06 PM) Lymph Auto [20.5-51.1 %] 21.6 % (08/15/22 7:06 PM) Larue Auto [1.7-9.3 %] 7.6 % (08/15/22 7:06 PM) Basophil Auto [0.0-0.8 %] 1.0 % *HI* (08/15/22 7:06 PM) BUN [8-26 mg/dL] 10 mg/dL (08/15/22 7:06 PM) UA Color [Yellow] Yellow (08/15/22 5:57 PM) Glucose Level [74-106 mg/dL] 95 mg/dL (08/15/22 7:06 PM) Potassium Level [3.5-5.1 mmol/L] 3.8 mmo l/L (08/15/22 7:06 PM) Baso Absolute [0.0-0.2 K/mcL] 0.0 K/mcL (08/15/22 7:06 PM) MCV [81.0-99.0 fL] 86.9 fL (08/15/22 7:06 PM) UA Urobilinogen [0.2] 1.0 *ABN* (08/15/22:57 PM) UA Bili [Negative] Negative (08/15/22 5:57 PM) UA Ketones [Negative] Negative (08/15/22 5:57 PM) AST [15-41 IntlUnit/L] 21 IntlUnit/L (08/15/22 7:06 PM) ALT [14-54 IntlUnit/L] 18 IntlUnit/L (08/15/22 7:06 PM) MCHC [32.0-36.0 g/dL] 33.9 g/dL (08/15/22 7:06 PM) Osmolality [275-295 mOsm/kg] 276 mOsm/kg (08/15/22 7:06 PM) Sodium Level [134-143 mmol/L] 139 mmol/L (08/15/22 7:06 PM) UA Leuk Est [Negative] Negative (08/15/22 5:57 PM) Lymph Absolute [1.2-3.4 K/mcL] 1.1 K/mcL *LOW* (08/15/22 7:06 PM) UA Nitrite [Negative] Negative (08/15/22 5:57 PM) UA Glucose [Negative] Negative (08/15/22 5:57 PM) Hct [37.0-47.0 %] 41.3 % (08/15/22 7:06 PM) Lipase Level [18-51 unit/L] 33 unit/L 1 (08/15/22 7:06 PM) Calcium Level [8.9-10.3 mg/dL] 9.3 mg/dL (08/15/22 7:06 PM) Larue Absolute [0.1-0.6 K/mcL] 0.4 K/mcL (08/15/22 7:06 PM) Albumin Level [3.5-5.0 g/dL] 4.6 g/dL (08/15/22 7:06 PM) Protein Total [6.5-8.1 g/dL] 7.7 g/dL (08/15/22 7:06 PM) UA Protein [Negative] Negative (08/15/22 5:57 PM) MCH [27.0-31.0 pg] 29.5 pg (08/15/22: PM) Neutro Absolute [1.4-6.5 K/mcL] 3.2 K/mc L (08/15/22: PM) Bilirubin Total [0.2-1.2 mg/dL] 0.4 mg/d L (08/15/22: PM) Hgb [12.0-16.0 g/dL] 14.0 g/dL (08/15/22 7:06 PM) Alk Phos [38-130 IntlUnit/L] 86 IntlUnit /L (08/15/22 7:06 PM) UA Blood [Negative] Negative (08/15/22 5:57 PM) MPV [7.4-10.4 fL] 10.7 fL *HI* (08/15/22 7:06 PM) UA Spec Grav 1.025 *NA* (08/15/22:57 PM) Platelets [130-400 K/mcL] 272 K/mcL (08/15/22 7:06 PM) CO2 [22-32 mmol/L] 24 mmol/L (08/15/22 7:06 PM) Eos Absolute [0.0-0.2 K/mcL] 0.2 K/mcL (08/15/22 7:06 PM) UA pH 6.50 *NA* (08/15/22 5:57 PM) UA Appear [Clear] Clear (08/15/22 5:57 PM) Chloride Level [98-111 mmol/L] 107 mmol/ L (08/15/22 7:06 PM) RDW-CV [11.5-14.5 %] 12.1 % (08/15/22 7:06 PM) A/G Ratio 1.5 *NA* (08/15/22 7:06 PM) BUN/Creat Ratio [8.0-20.0] 18.5 (08/15/22 7:06 PM) Globulin 3.1 *NA* (08/15/22 7:06 PM) Imm Gran Absolute 0.01 *NA* (08/15/22 7: PM) Imm Gran Auto [0.0-0.5 %] 0.2 % (08/15/22 7:06 PM) Slide Review Not Indicated (08/15/22 7: PM) Urine Srce Clean Catch (08/15/22 5:57 PM) Creatinine Level [0.44-1.00 mg/dL] 0.54 mg/dL (08/15/22 7:06 PM) Anion Gap [3.0-12.0] 8.0 (08/15/22 7:06 PM) Eos, Auto [0.00-3.00 %] 3.50 % *HI* (08/15/22 7:06 PM) U hCG Ql [Negative] Negative (08/15/22 5:57 PM) eGFR CKD-EPI [>=60 mL/min/1.73 m2] 137 m L/min/1.73 m2 (08/15/22 7:06 PM) 1Interpretive Data: P-zpisze-i-benzoquinone imine (meabolite of Acetaminophen) will generate erroneously low lipase results in samples for patients that have taken toxic doses of acetaminophen. Vital Signs Most recent to oldest [Reference Range]: 1 2 Temperature Temporal Artery [36-38 Deg C ] 36.9 Deg C (08/15/22 5:53 PM) Peripheral Pulse Rate [60-100 bpm] 103 b pm *HI* (08/15/22 6:29 PM) 121 bpm *HI* (08/15/22 5:53 PM) Respiratory Rate [12-24 br/min] 16 br/mi n (08/15/22 6:29 PM) 18 br/min (08/15/22 5:53 PM) Blood Pressure [90-140/60-90 mmHg] 106/7 0mmHg (08/15/22 5:53 PM) Weight Dosing 41.00 kg (08/15/22 6:08 PM) Weight Estimated 41.00 kg (08/15/22 5:53 PM) Height/Length Dosing 162.000 cm (08/15/22 6:08 PM) Height/Length Estimated 162.000 cm (08/15/22 5:53 PM) Social History Social History Type Response Tobacco Never tobacco user, smokeless tobacco daily Tobacco Use:. Sex Female Hospital Discharge Instructions Patient Education 08/15/2022 20:18:34 Abdominal Pain, Pediatric Abdominal Pain, Pediatric Pain in the abdomen (abdominal pain) can be caused by many things. The causes may also change as your child gets older. Often, abdominal pain is not serious, and it gets better without treatment or by being treated at home. However, sometimes abdominal pain is serious. Your child's health care provider will ask questions about your child's medical history and do a physical exam to try to determine the cause of the abdominal pain. Follow these instructions at home: Medicines ??? Give [id number]-qjq-mtsjjcj and prescription medicines only as told by your child's health care provider. ??? Do not give your child a laxative unless told by your child's health care provider. General instructions ??? Watch your child's condition for any changes. ??? Have your child drink enough fluid to keep his or her urine pale yellow. ??? Keep all follow-up visits as told by your child's health care provider. This is important. Contact a health care provider if: ??? Your child's abdominal pain changes or gets worse. ??? Your child is not hungry, or your child loses weight without trying. ??? Your child is constipated or has diarrhea for more than 2???3 days. ??? Your child has pain when he or she urinates or has a bowel movement. ??? Pain wakes your child up at night. ??? Your child's pain gets worse with meals, after eating, or with certain foods. ??? Your child vomits. ??? Your child who is 3 months to 3 years old has a temperature of 102.2??F (39??C) or higher. Get help right away if: ??? Your child's pain does not go away as soon as your child's health care provider told you to expect. ??? Your child cannot stop vomiting. ??? Your child's pain stays in one area of the abdomen. Pain on the right side could be caused by appendicitis. ??? Your child has bloody or black stools, stools that look like tar, or blood in his or her urine. ??? Your child who is younger than 3 months has a temperature of 100.4??F (38??C) or higher. ??? Your child has severe abdominal pain, cramping, or bloating. ??? You notice signs of dehydration in your child who is one year old or younger, such as: ??? A sunken soft spot on his or her head. ??? No wet diapers in 6 hours. ??? Increased fussiness. ??? No urine in 8 hours. ??? Cracked lips. ??? Not making tears while crying. ??? Dry mouth. ??? Sunken eyes. ??? Sleepiness. ??? You notice signs of dehydration in your child who is one year old or older, such as: ??? No urine in 8???12 hours. ??? Cracked lips. ??? Not making tears while crying. ??? Dry mouth. ??? Sunken eyes. ??? Sleepiness. ??? Weakness. Summary ??? Often, abdominal pain is not serious, and it gets better without treatment or by being treated at home. However, sometimes abdominal pain is serious. ??? Watch your child's condition for any changes. ??? Give jpin-dig-jnplvda and prescription medicines only as told by your child's health care provider. ??? Contact a health care provider if your child's abdominal pain changes or gets worse. ??? Get help right away if your child has severe abdominal pain, cramping, or bloating. This information is not intended to replace advice given to you by your health care provider. Make sure you discuss any questions you have with your health care provider. Document Revised: 10/27/2020 Document Reviewed: 06/07/2019 [employer] Patient Education ?? 2022 [employer]. Follow Up Care 08/15/2022 17:53:36 With:Christina Cardoso MD Address: [address] [place] [id number] When:1 month Physician Emergency department Note * Ayla Hopper APRN: PERFORM Event Display: ED Note Physician Authored Date: [id number] JOSE ROBERTO BALBUENA :2005 Age:17 years Sex:Female Visit Date:08/15/2022 Primary Care Physician: Christina Cardoso MD Basic Information Time Seen: Ayla Hopper APRN / 08/15/2022 18:07 Chief Complaint Pt presents to ED c/o diffuse abd pain x ??1 day however worse LLQ, radiates to mid lower back. Denies urinary s/s, reports diarrhea x 1 week since taking abx for JAYDA. History Of Present Illness: Patient is an 17-year-old female who presents today with a chief complaint of left-sided abdominal pain.?? She states that she has had??increased left-sided abdominal pain and diarrhea over the last??24 hours, she states that she recently was evaluated for UTI symptoms, placed on a??antibiotic coverage??with resolution. ??She states that she was reevaluated??test for bacterial vaginosis??and yeast that was negative as well.?? She states that she had increased pain??that started last evening,??states that she went to bed thinking that sleeping would make her feel better, having multiple episodes of diarrhea today and left-sided tenderness. ??She denies fever, chills, body aches.?? States that she has chronic nausea??without vomiting. Review of Systems: General: Denies fever, chills, night sweats, unintentional weight changes, changes in appetite. Skin: Denies rashes, lesions, ulcerations, erythema, swelling, discoloration. Resp: Denies cough, wheezing, shortness of breath, orthopnea, CV: Denies chest pain, chest pressure, palpitations, syncope, edema. GI: Denies nausea, vomiting,?? (+) abdominal pain, (+) diarrhea MS: Denies joint pain, joint swelling, muscle cramps, muscle weakness, stiffness Neuro: Denies weakness, paresthesias, seizures, tremors, dizziness. Physical Exam Vitals & Measurements T:??36.9?C ??(Temporal Artery)?? HR:??103??(Peripheral)?? RR:??16?? BP:??106/70?? SpO2:??99%?? HT:??162.000??cm?? WT:??41.00??kg??(Estimated)?? Pain Score:??7?? O2 Therapy:??Room air?? General: Well-appearing, no acute distress, alert and oriented x3. Skin: No concerning lesions in examined areas. Head: Normal cephalic without trauma or injury. Neck: Supple, nontender, normal range of motion Cardiovascular: Regular rate and rhythm. ??No murmur, rubs, or gallops. Respiratory: Clear to auscultation bilaterally. ??No wheezes, rales, rhonchi. Chest: No deformity. ??Nontender, normal inspiration and expiration. Abdomen: Soft,??left upper and lower quadrant tenderness with palpation, no peritoneal signs, rigidity, guarding. ??No CVA tenderness. Medical Decision Making: Patient was evaluated emergency department for??less than 24 hours of left lower abdominal pain andreported diarrhea, vital signs were obtained and reviewed, patient was normotensive, initially tachycardic??100s, afebrile.?? Physical exam does note a mildly tender left lower quadrant.?? I discussed IV hydration and CT imaging??with the patient to??rule out colitis/ ovarian cyst??that she has rece ntly finished antibiotic course which she refused. ??She was agreeable to labs??but wishes for discharge prior to??results, I did send her home with an outpatient lab slip??discussing with her??the importance of ruling out any C. difficile??infection, She is??agreeable to that. ??She was sent home with??stool set??and instruction to return the sample??in the lab slip as indicated. return precautions provided. Labs reflect a normal white count, hemoglobin and hematocrit are unremarkable, metabolic function and liver function are normal, hCG negative, urinalysis negative. Procedure No Qualifying Data Assessment/Plan 1.??Abdominal pain, left lower quadrant??R10.32 Patient Education Abdominal Pain, Pediatric Follow Up With When Contact Information Christina Cardoso MD Within 1 month [address] [place] [address] Additional Instructions: Medication Reconciliation Unchanged medroxyPROGESTERone (Depo-Provera Contraceptive 150 mg/mL intramuscular suspension)1 Unknown. Problem List/Past Medical History Ongoing Amenorrhea Anxiety Decrease in appetite Epigastric pain Lipoma of abdominal wall Loss of taste Major depression, single episode Menometrorrhagia Nausea Patient encounter status Historical No qualifying data Allergies No Known Allergies No Known Medication Allergies Social History Alcohol Never Electronic Cigarette/Vaping Electronic Cigarette Use: Use, within last 90 days. Use per Day: 1-25 Inhales/day. Tobacco Never tobacco user, smokeless tobacco daily Tobacco Use:. Lab Results CBC and Differential?? LATEST RESULTS?? HISTORICAL RESULTS?? WBC?? 08/15/22 19:06?? 4.9?? 12/21/21?? 8.0?? RBC?? 08/15/22 19:06?? 4.75?? 12/21/21?? 4.68?? Hgb?? 08/15/22 19:06?? 14.0?? 12/21/21?? 14.0?? Hct?? 08/15/22 19:06?? 41.3?? 12/21/21?? 40.6?? MCV?? 08/15/22 19:06?? 86.9?? 12/21/21?? 86.8?? MCH?? 08/15/22 19:06?? 29.5?? 12/21/21?? 29.9?? MCHC?? 08/15/22 19:06?? 33.9?? 12/21/21?? 34.5?? RDW-CV?? 08/15/22 19:06?? 12.1?? 12/21/21?? 11.7?? Platelets?? 08/15/22 19:06?? 272?? 12/21/21?? 321 ??High?? MPV?? 08/15/22 19:06?? 10.7 ??High?? 12/21/21?? 11.2 ??High?? Neutro Auto?? 08/15/22 19:06?? 66.1?? 12/21/21?? 77.8 ??High?? Lymph Auto?? 08/15/22 19:06?? 21.6?? 12/21/21?? 13.8 ??Low?? Larue Auto?? 08/15/22 19:06?? 7.6?? 12/21/21?? 7.3?? Eos, Auto?? 08/15/22 19:06?? 3.50 ??High?? 12/21/21?? 0.10?? Basophil Auto?? 08/15/22 19:06?? 1.0 ??High?? 12/21/21?? 0.6 ??High?? Imm Gran Auto?? 08/15/22 19:06?? 0.2?? 12/21/21?? 0.4?? Neutro Absolute?? 08/15/22 19:06?? 3.2?? 12/21/21?? 6.2?? Lymph Absolute?? 08/15/22 19:06?? 1.1 ??Low?? 12/21/21?? 1.1 ??Low?? Larue Absolute?? 08/15/22 19:06?? 0.4?? 12/21/21?? 0.6?? Eos Absolute?? 08/15/22 19:06?? 0.2?? 12/21/21?? 0.0?? Baso Absolute?? 08/15/22 19:06?? 0.0?? 12/21/21?? 0.0?? Imm Gran Absolute?? 08/15/22 19:06?? 0.01?? 12/21/21?? 0.03?? Slide Review?? 08/15/22 19:06?? Not Indicated?? 12/21/21?? Not Indicated? Routine Chemistry?? LATEST RESULTS?? HISTORICAL RESULTS?? Sodium Level?? 08/15/22 19:06?? 139?? 12/21/21?? 137?? Potassium Level?? 08/15/22 19:06?? 3.8?? 12/21/21?? 3.5?? Chloride Level?? 08/15/22 19:06?? 107?? 12/21/21?? 103?? CO2?? 08/15/22 19:06?? 24?? 12/21/21?? 18 ??Low?? Alk Phos?? 08/15/22 19:06?? 86?? 12/21/21?? 66?? AST?? 08/15/22 19:06?? 21?? 12/21/21?? 27?? ALT?? 08/15/22 19:06?? 18?? 12/21/21?? 14?? BUN?? 08/15/22 19:06?? 10?? 12/21/21?? 11?? Glucose Level?? 08/15/22 19:06?? 95?? 12/21/21?? 82?? Creatinine Level?? 08/15/22 19:06?? 0.54?? 12/21/21?? 0.56?? BUN/Creat Ratio?? 08/15/22 19:06?? 18.5?? 12/21/21?? 19.6?? eGFR CKD-EPI?? 08/15/22 19:06?? 137? Calcium Level?? 08/15/22 19:06?? 9.3?? 12/21/21?? 9.9?? Protein Total?? 08/15/22 19:06?? 7.7?? 12/21/21?? 8.2 ??High?? Albumin Level?? 08/15/22 19:06?? 4.6?? 12/21/21?? 5.3 ??High?? Globulin?? 08/15/22 19:06?? 3.1?? 12/21/21?? 2.9?? A/G Ratio?? 08/15/22 19:06?? 1.5?? 12/21/21?? 1.8?? Bilirubin Total?? 08/15/22 19:06?? 0.4?? 12/21/21?? 1.6 ??High?? Anion Gap?? 08/15/22 19:06?? 8.0?? 12/21/21?? 16.0 ??High?? Lipase Level?? 08/15/22 19:06?? 33?? 12/21/21?? 25?? Osmolality?? 08/15/22 19:06?? 276?? 12/21/21?? 272 ??Low? Testing?? LATEST RESULTS?? HISTORICAL RESULTS?? U hCG Ql?? 08/15/22 17:57?? Negative?? 02/17/22?? Negative? UA Macroscopic?? LATEST RESULTS?? Urine Srce?? 08/15/22 17:57?? Clean Catch?? UA Color?? 08/15/22 17:57?? Yellow?? UA Appear?? 08/15/22 17:57?? Clear?? UA Glucose?? 08/15/22 17:57?? Negative?? UA Bili?? 08/15/22 17:57?? Negative?? UA Ketones?? 08/15/22 17:57?? Negative?? UA Spec Grav?? 08/15/22 17:57?? 1.025?? UA Blood?? 08/15/22 17:57?? Negative?? UA pH?? 08/15/22 17:57?? 6.50?? UA Protein?? 08/15/22 17:57?? Negative?? UA Urobilinogen?? 08/15/22 17:57?? 1.0 Abnormal?? UA Nitrite?? 08/15/22 17:57?? Negative?? UA Leuk Est?? 08/15/22 17:57?? Negative? Electronically Signed on 08/15/22 09:18 PM Ayla Hopper APRN Patient Care team information Care Team Personnel Name: Krystal Kurtz APRN Position: Physician Member Role: Nurse Practitioner Address: Address: [address] [place] [address] [address] [place], [place] [address] Name: Christina Cardoso MD Position: Physician Member Role: Primary Care Physician Address: Address: [address] [place] [phone] Name: Ayla Hopper APRN Position: Physician Member Role: Physician Address: Address: [address] [place] [phone] [place] Name: Valery Mendoza Position: Nurse Member Role: ED Nurse Name: Shiloh Louis Position: Nurse Member Role: Registered Nurse Care Team Related Persons Name: ALVARO BALBUENA Address: Home [address] [place], [place] [id number] Name: ALVARO BALBUENA Address: Home [address] [place], [place] [id number] [facility] Name: CAROLINA BALBUENA Address: [facility]
--- OUTSIDE RECORDS SUMMARY | 2024-02-03 12:34 | XMS_ITS | Continuity of Care Document ---
Author Organization [facility] Ambulatory Clinics Address [address] [place] [address] Care Team Providers Care Scrap Picker Name Role Phone Christina Cardoso MD Primary Care Physician Encounter [facility] FIN NBR [id number] Date(s): 01/15/23 - 01/15/23 [facility] Ambulatory Clinics [address] [place] [address] [place] Encounter Diagnosis Dysuria(Discharge Diagnosis) - 01/15/23 Discharge Disposition: Home or Self Care Attending Physician: Hiwot Pelaez PA-C Admitting Physician: Hiwot Pelaez PA-C Allergies, Adverse Reactions, Alerts No Known Allergies Assessment and Plan Future Scheduled Tests Laboratory* Urine Culture 01/03/23 [...] Once, # 1 packets, 0 Refill(s), Pharmacy: [email or web address] #[id number], 162, cm, 08/15/22 18:08:00 EDT, Height/Length Dosing, 42.64, kg, 01/15/23 20:27:00 EST, Weight Dosing Start Date: 01/15/23 Status: Ordered Problem List Condition Confirmation Course Effective Dates Status H ealth Status Informant Amenorrhea Confirmed Active Anxiety Confirmed Active Decrease in appetite Confirmed Active Epigastric pain Confirmed Active Lipoma of abdominal wall Confirmed Active Loss of taste Confirmed Active Major depression, single episode Confirmed Active Menometrorrhagia Confirmed Active Nausea Confirmed Active Patient encounter status Confirmed Active Results Laboratory List Name Date .Urinalysis POCT 01/15/23 Most recent to oldest [Reference Range]: 1 Method of Collect POC clean catch *NA* (01/15/23 8:28 PM) Specific [place], Ur POC 1.030 *NA* (01/15/23 8:28 PM) Specimen Color POC [Yellow] Light Yellow (01/15/23 8:28 PM) Glucose, Urine POC Negative mg/dL *NA* (01/15/23 8:28 PM) Bilirubin, Urine POC [Negative] Negative (01/15/23 8:28 PM) Ketones, Urine POC [Negative mg/dL] Nega tive mg/dL (01/15/23 8:28 PM) Blood, Urine POC [Negative] Negative (01/15/23 8:28 PM) pH, Urine POC 6.50 *NA* (01/15/23 8:28 PM) Protein, Urine POC [Negative mg/dL] 30 m g/dL *ABN* (01/15/23 8:28 PM) Urobilinogen, Urine POC [0.2] 1.0 *ABN* (01/15/23 8:28 PM) Nitrite, Urine POC [Negative] Negative (01/15/23 8:28 PM) Leuk Esterase, Urine POC [Negative] Nega tive (01/15/23 8:28 PM) Clarity, Urine POC [Clear] Clear (01/15/23 8:28 PM) Vital Signs Most recent to oldest [Reference Range]: 1 Temperature Tympanic [36.6-38.1 Deg C] 3 6.8 Deg C (01/15/23 8:25 PM) Peripheral Pulse Rate [60-100 bpm] 98 bp m (01/15/23 8:25 PM) Blood Pressure [90-140/60-90 mmHg] 96/61 mmHg (01/15/23 8:25 PM) Mean Arterial Pressure, Cuff [70-110 mmH g] 73 mmHg (01/15/23 8:25 PM) Weight 42.64 kg (01/15/23 8:25 PM) Weight Measured (lbs) 94.005 lb (01/15/23 8:25 PM) Weight Dosing 42.640 kg (01/15/23 8:25 PM) Weight Percentile 0.92 1 (01/15/23 8:25 PM) 1Result Comment: ^~:!Percentile Source -[facility] Social History Social History Type Response Tobacco Never tobacco user, smokeless tobacco daily Tobacco Use:. Sex Female Physician Outpatient Note * Hiwot Pelaez PA-C: PERFORM Event Display: Office Clinic Note Physician Authored Date: [id number] JOSE ROBERTO BALBUENA :2005 Age:18 years Sex:Female Visit Date:01/15/2023 Primary Care Physician: Christina Cardoso MD Chief Complaint burning sensation while urinating, lower back pain and abdominal pain. History of Present Illness This is a 18-year-old female who presents for evaluation. ??She reports that for the past couple ofdays she has been experiencing??burning with urination and mild pelvic cramping that sometimes is radiating to her right side of her low back.?? Her last menstrual period was 3 weeks ago, she is due to start in 1 week. ??She is not sexually active and denies any new sexual partners. ??She has not had any??significant vaginal discharge,??just white and??stringy which is not abnormal for her. ??Shedoes have a history of frequent UTI as well as bacterial vaginosis. ??She denies any itching. ??Sheis not experiencing any fever, chills, body aches, nausea, vomiting Physical Exam Vitals & Measurements T:??36.8?C ??(Tympanic)?? HR:??98??(Peripheral)?? BP:??96/61?? SpO2:??99%?? WT:??42.64??kg?? WT:??0.92??(Percentile)?? General: A&O x 3, well-built and hydrated, no acute distress Heart: normal S1S2, no murmurs, rubs, gallops Lungs: equal and symmetric respiratory effort, lungs clear to auscultation without wheezes, rales, rhonchi Abdomen: soft, non-distended, bowel sounds normoactive, no tenderness, rebound, guarding, rigidity PSS DELIVERY PROFESSIONAL: deferred Assessment/Plan 1.??Dysuria??R30.0 Patient presenting with 2 days of dysuria and mild pelvic cramping with intermittent radiating??to the back.??She has not been sexually active for several months. Menses have been regular. Recommended PSS DELIVERY PROFESSIONAL exam today however patient defers. ??She does have a history of frequent UTI however her urinedip is negative today, we will send this for culture. ??She notes she has had??a negative dip and apositive culture in the past and typically she takes a single dose of fosfomycin??which helps her symptoms. ??This was sent to her pharmacy today. ??Patient also performed a self swab to evaluate forother potential causes of vaginitis.?? Her??pelvic cramping could be related to her??about to starther menses versus a ruptured ovarian cyst however she appears very stable and comfortable on exam with a benign abdominal exam. ??Recommended??ibuprofen alternated with Tylenol as needed and use of aheating pad. ??Patient understands that should she develop any??worsening pelvic pain, nausea, vomiting, fever, flank pain she should return immediately for recheck. ??She agrees with plan and we will follow-up with her pending her results Ordered: fosfomycin 3 g oral granule for reconstitution, 3 g = 1 EA, Oral, Once, # 1 packets, 0 Refill(s), Pharmacy: [email or web address] #[id number], 162, cm, 08/15/22 18:08:00 EDT, Height/Length Dosing, 42.64, kg, 01/15/23 20:27:00 EST, Weight Dosing Urine Culture, Urine, Clean Catch, Routine collect, RT - Routine, 01/15/23 20:30:00 EST, Once, Lab Collect, Collected, by [facility], Micro Spec, Dysuria, Print Label, Not Required ?? Problem List/Past Medical History Ongoing Amenorrhea Anxiety Decrease in appetite Epigastric pain Lipoma of abdominal wall Loss of taste Major depression, single episode Menometrorrhagia Nausea Patient encounter status Historical No qualifying data Medications Depo-Provera Contraceptive 150 mg/mL intramuscular suspension fosfomycin 3 g oral granule for reconstitution, 3 g= 1 EA, Oral, Once Allergies No Known Allergies No Known Medication [...] vaccine 2005 Recorded Comments : Unit: Unknown Lab Results Test Name Test Result Date/Time Method of Collect POC clean catch 01/15/2023 20:28 EST Specimen Color POC Light Yellow 01/15/2023 20:28 EST Clarity, Urine POC Clear 01/15/2023 20:28 EST Glucose, Urine POC Negative 01/15/2023 20:28 EST Bilirubin, Urine POC Negative 01/15/2023 20:28 EST Ketones, Urine POC Negative 01/15/2023 20:28 EST Specific [place], Ur POC 1.030 01/15/2023 20:28 EST pH, Urine POC 6.50 01/15/2023 20:28 EST Protein, Urine POC 30 01/15/2023 20:28 EST Urobilinogen, Urine POC 1.0 01/15/2023 20:28 EST Nitrite, Urine POC Negative 01/15/2023 20:28 EST Blood, Urine POC Negative 01/15/2023 20:28 EST Leuk Esterase, Urine POC Negative 01/15/2023 20:28 EST Electronically Signed on 01/16/23 09:48 AM Hiwot Pelaez PA-C Patient Care team information Care Team Personnel Name: Krystal Kurtz APRN Position: No Access Member Role: Nurse Practitioner Address: Address: [address] [place] [id number] Name: Christina Cardoso MD Position: Physician Member Role: Primary Care Physician Address: Address: [address] [place] [id number] [place] Care Team Related Persons Name: ALVARO BALBUENA Address: Home [address] [place], [place] [id number] Name: ALVARO BALBUENA Address: Home [address] [place], [place] [id number] [facility] Name: CAROLINA BALBUENA Address: [facility]
--- OUTSIDE RECORDS SUMMARY | 2024-02-03 12:34 | XMS_ITS | Continuity of Care Document ---
Author Organization [facility] Ambulatory Clinics Address [address] [place] [address] Care Team Providers Care Brusher Warp Name Role Phone Christina Cardoso Primary Care Physician [phone] Encounter [facility] NBR [id number] Date(s): 08/05/22 - 08/05/22 [facility] Ambulatory Clinics [address] [place], [place] [address] Encounter Diagnosis Injury of left little finger(Discharge Diagnosis) - 08/05/22 Discharge Disposition: Home or Self Care Attending Physician: Angel Yost. KEREN Admitting Physician: Angel Yost. KEREN Allergies, Adverse Reactions, Alerts No Known Allergies Functional Status 08/05/22 Other exposure to Infectious Disease Non e [...] 0 Refill(s) Start Date: 11/29/21 Status: Ordered Problem List Condition Confirmation Course [...] Most recent to oldest [Reference Range]: 1 Weight 40.82 kg (08/05/22 7:51 PM) Weight Measured (lbs) 89.993 lb (08/05/22 7:51 PM) Height 162.56 cm (08/05/22 7:51 PM) Height/Length Measured (inches) 64 inch (08/05/22 7:51 PM) BSA Measured 1.36 m2 (08/05/22 7:51 PM) Body Mass Index 15.45 kg/m2 (08/05/22 7:51 PM) Body Mass Index Percentile 0.04 1 (08/05/22 7:51 PM) Height/Length Percentile 46.05 2 (08/05/22 7:51 PM) Weight Percentile 0.27 3 (08/05/22 7:51 PM) 1Result Comment: ^~:!Percentile Source -[facility] 2Result Comment: ^~:!Percentile Source -[facility] 3Result Comment: ^~:!Percentile Source -[facility] Social History Social History Type Response Tobacco Never tobacco user, smokeless tobacco daily Tobacco Use:. Sex Female Physician Outpatient Note * Angel Yost. PA: PERFORM Event Display: Office Clinic Note Physician Authored Date: [id number] JOSE ROBERTO BALBUENA :2005 Age:17 years Sex:Female Visit Date:08/05/2022 Primary Care Physician: Christina Cardoso MD Chief Complaint pt fell 2 days ago landing on left hand. ??Continued pain and bruising on 5th finger. History of Present Illness Patient fell 2 days ago striking her left??hand. ??Mostly the left little finger.?? She states she tripped and fell. ??No syncope. ??She describes ecchymosis and inability to fully extend.?? She denies other hand or wrist tenderness. Physical Exam Vitals & Measurements HT:??162.56??cm?? HT:??46.05??(Percentile)?? WT:??40.82??kg?? WT:??0.27??(Percentile)?? BMI:??15.45?? BMI:??0.04??(Percentile)?? Pain Score:??7?? BSA:??1.36?? Well-appearing no acute distress. ??Examination of the left fifth finger??shows ecchymosis, diffusetenderness. ??No rotational deformity. ??No crepitus. ??Ligaments are stable.?? No hand or wrist tenderness. Assessment/Plan 1.??Injury of left little finger??S69.92XA X-ray of the left little finger negative for fracture. ??There may be a small avulsion however I think this is artifact. ??Patient finger was dimitrios taped recommend gentle range of motion recheck if not improving over the next 1 to 2 weeks. Ordered: XR Finger(s) 2+ Views Left, 08/05/22 20:05:00 EDT, Routine, Reason: Left little finger x-ray please, injury, Left little finger, Transport Mode: Ambulatory, Injury of left little finger, ABN Status: Not Required ?? Patient Instructions X-rays were negative for fracture I will call you if the radiologist disagrees.?? Recommend dimitrios taping your finger. ??Recheck if not improving over the next 1 to 2 weeks. Problem List/Past Medical History Ongoing Amenorrhea Anxiety Decrease in appetite Epigastric pain Lipoma of abdominal wall Loss of taste Major depression, single episode Menometrorrhagia Nausea Patient encounter status Historical No qualifying data Medications Depo-Provera Contraceptive 150 mg/mL intramuscular suspension Allergies No Known Allergies No Known Medication [...] Comments : Unit: Unknown Electronically Signed on 08/05/22 08:16 PM Angel VELIZ Outpatient Summary note * Angel Yost. KEREN: PERFORM Event Display: Ambulatory Patient Summary Authored Date: [id number] JOSE ROBERTO BALBUENA :2005 Age:17 years Sex:Female Visit Date:08/05/2022 Primary Care Physician: Christina Cardoso MD Ambulatory Visit Instructions We would like to thank you for allowing us to assist you with your healthcare needs. The following includes patient education materials and information regarding your injury/illness. Your Next Steps Instructions From Your Care Team X-rays were negative for fracture I will call you if the radiologist disagrees.?? Recommend dimitrios taping your finger. ??Recheck if not improving over the next 1 to 2 weeks. Medications What When Instructions Unchanged medroxyPROGESTERone (Depo-Provera Contraceptive 150 mg/ mL intramuscular suspension) 1 Unknown ?? Your Summary Your Diagnosis Injury of left little finger Problems Ongoing - Any problem that you are currently receiving treatment for. Amenorrhea Anxiety Decrease in appetite Epigastric pain Lipoma of abdominal wall Loss of taste Major depression, single episode Menometrorrhagia Nausea Patient encounter status Your Care Team Admitting Physician - Angel Yost. KEREN Attending Physician - Angel Yost. PA Primary Care Physician - Christina Cardoso MD Discharge Vitals Height?? 64.00 in (162.56 cm) Weight?? 90.01 lb (40.82 kg) BMI?? 15.45 Allergies No Known Allergies No Known Medication Allergies Electronically Signed on: 08/05/2022 20:13 EDTSigned by:ANUSHA Patient Care team information Care Team Personnel Name: Krystal Kurtz APRN Position: Physician Member Role: Nurse Practitioner Address: Address: [address] [place] [id number] Name: Christina Cardoso MD Position: Physician Member Role: Primary Care Physician Address: Address: [address] [place] [id number] Care Team Related Persons Name: ALVARO BALBUENA Address: Home [address] [place], [place] [id number] Name: ALVARO BALBUENA Address: Home [address] [place], [place] [id number] [facility] Name: CAROLINA BALBUENA Address: [facility]
--- OUTSIDE RECORDS SUMMARY | 2024-02-03 12:34 | XMS_ITS | Continuity of Care Document ---
Author Organization [facility] Ambulatory Clinics Address [address] [place] [address] Care Team Providers Care Nurses Educator Name Role Phone Christina Cardoso Primary Care Physician [phone] Encounter [facility] NBR [id number] Date(s): 12/05/21 - 12/05/21 [facility] Ambulatory Clinics [address] [place], [place] [address] Encounter Diagnosis Anxiety(Discharge Diagnosis) - 12/05/21 Epigastric pain(Discharge Diagnosis) - 12/05/21 Discharge Disposition: Home or Self Care Attending Physician: Christina Cardoso Allergies, Adverse Reactions, Alerts No Known Allergies Assessment and Plan Future Appointments Functional Status 12/05/21 Other exposure to Infectious Disease Non e [...] Unknown 14Result Comment: Unit: Unknown Medications busPIRone 10 mg oral tablet BID, 1 Unknown, 0 Refill(s) Start Date: 11/29/21 Status: Ordered Depo-Provera Contraceptive 150 mg/mL intramuscular suspension 1 Unknown, 0 Refill(s) Start Date: 11/29/21 Status: Ordered hyoscyamine 0.125 mg oral tablet, disintegrating QID, 0 Refill(s) Start Date: 11/29/21 Status: Ordered Lexapro 5 mg oral tablet 10 mg = 2 tab, Oral, Daily, Take one tab daily for 7 days then take 2 tabs daily, # 60 tab, 0 Refill(s), Pharmacy: [id number] Start Date: 12/05/21 Stop Date: 01/04/22 Status: Ordered medroxyPROGESTERone 150 mg/mL intramuscular suspension 1 Unknown, 0 Refill(s) Start Date: 11/29/21 Status: Ordered promethazine 12.5 mg oral tablet QID, 0 Refill(s) Start Date: 11/29/21 Status: Ordered [...] Most recent to oldest [Reference Range]: 1 Blood Pressure [90-140/60-90 mmHg] 101/7 8mmHg (12/05/21 10:00 AM) Weight 40.6 kg (12/05/21 10:00 AM) Weight Measured (lbs) 89.508 lb (12/05/21 10:00 AM) Weight Percentile 0.29 1 (12/05/21 10:00 AM) 1Result Comment: ^~:!Percentile Source -[facility] Social History Social History Type Response Tobacco Never tobacco user T obacco Use:. Sex Patient Care team information Personnel Name: CardosoChristina Address: Address: [address] [place] [phone]
--- OUTSIDE RECORDS SUMMARY | 2024-02-03 12:34 | XMS_ITS | Continuity of Care Document ---
Author Organization [facility] Ambulatory Clinics Address [address] [place] [address] Care Team Providers Care Aquatics Director Name Role Phone MELVA WATTS APRN Primary Care Physician [phone] Encounter [facility] NBR [id number] Date(s): 10/29/23 - 10/29/23 [facility] Ambulatory Clinics [address] [place] [address] [place] Encounter Diagnosis Tonsillitis(Discharge Diagnosis) - 10/28/23 Recurrent tonsillitis(Discharge Diagnosis) - 10/29/23 Tonsillar hypertrophy(Discharge Diagnosis) - 10/29/23 Discharge Disposition: Home or Self Care Attending Physician: KEREN Mcclain Referring Physician: MELVA WATTS APRN Allergies, Adverse Reactions, Alerts Substance Criticality Severity Reaction Reaction Severity Status penicillin High criticality Moderate Rash Ac tive Assessment and Plan Future Scheduled Tests Laboratory* [...] 0 Refill(s) Start Date: 10/28/23 Status: Ordered ondansetron 4 mg oral tablet, disintegrating 4 mg = 1 tab, Oral, TID, # 10 tab, 0 Refill(s), Pharmacy: [facility] #[id number], 162, cm, 02/25/23 11:58:00 EST, Height, 40.8, kg, 02/25/23 12:04:00 EST, Weight Dosing Start Date: 02/25/23 Status: Ordered Ventolin HFA 0 Refill(s) Start Date: 10/28/23 Status: Ordered Problem List Condition Confirmation Course Effective Dates Status H ealth Status Informant Amenorrhea Confirmed Active Anxiety Confirmed Active Decrease in appetite Confirmed Active Epigastric pain Confirmed Active Lipoma of abdominal wall Confirmed Active Loss of taste Confirmed Active Major depression, single episode Confirmed Active Menometrorrhagia Confirmed Active Nausea Confirmed Active Patient encounter status Confirmed Active Tonsillitis Confirmed Active Social History Social History Type Response Tobacco Never tobacco user, smokeless tobacco daily Tobacco Use:. Sex Female Sex Representation Female (finding) Patient Care team information Care Team Personnel Name: MELVA WATTS APRN Position: No Access Member Role: Primary Care Physician Address: [facility] [address] [place] [address]- Name: Krystal Kurtz APRN Position: Physician Member Role: Nurse Practitioner Address: [address] [facility] [address] [facility] [address] [place], [place] [address] Care Team Related Persons Name: FAIZA BALBUENA Insurance Providers Guarantor name: JOSE ROBERTO Sanabria BALBUENA Health Plan Information #: 1 Payer: [place]ICAID [place] Member Number: [id number] Policy Number: [place] Health Plan Information #: 2 Payer: [place]ID [place] Member Number: [id number] Policy Number: [place] Health Plan Information #: 3 Payer: [place] Member Number: [id number] Policy Number: [place]
--- OUTSIDE RECORDS SUMMARY | 2024-02-03 12:34 | XMS_ITS | Continuity of Care Document ---
Author Organization [facility] Address [address] [place] [address] Care Team Providers Care After School Program Coordinator Name Role Phone Christina Cardoso Primary Care Physician Encounter [facility] NBR [id number] Date(s): 06/07/22 - 06/07/22 [facility] [address] [place], [place] [address] Discharge Disposition: Home or Self Care Attending Physician: Ayla Hopper APRN Admitting Physician: Ayla Hopper APRN Allergies, Adverse Reactions, Alerts No Known Allergies Assessment and Plan Diagnostic Tests Pending * Urine Culture 06/07/22 Immunizations Given and Recorded Vaccine Date Status [...] 0 Refill(s) Start Date: 11/29/21 Status: Ordered escitalopram 5 mg oral tablet See Instructions, 1 tablet PO QD for 7 days then increase to 2 tablet once a day Disp #60, # 60 tab, 0 Refill(s), Pharmacy: [facility] #[id number] Start Date: 12/12/21 Status: Ordered hyoscyamine 0.125 mg oral tablet, disintegrating QID, 0 Refill(s) Start Date: 11/29/21 Status: Ordered Lexapro 5 mg oral tablet 10 mg = 2 tab, Oral, Daily, Take one tab daily for 7 days then take 2 tabs daily, # 60 tab, 0 Refill(s), Pharmacy: [facility][id number] Start Date: 12/05/21 Stop Date: 01/04/22 Status: Ordered Macrobid 100 mg oral capsule 100 mg = 1 cap, Oral, BID, # 10 cap, 0 Refill(s), Pharmacy: [facility] #[id number], 163, cm, 02/17/22 23:22:00 EST, Height/Length Dosing, 40.6, kg, 02/17/22 23:22:00 EST, Weight Dosing Start Date: 06/07/22 Stop Date: 06/12/22 Status: Ordered medroxyPROGESTERone 150 mg/mL intramuscular suspension 1 Unknown, 0 Refill(s) Start Date: 11/29/21 Status: Ordered promethazine 12.5 mg oral tablet QID, 0 Refill(s) Start Date: 11/29/21 Status: Ordered Xulane 150 mcg-35 mcg/24 hr transdermal film, extended release 1 patches, Topical, every week, apply a new patch weekly for 3 weeks, remove for 1 week, then repeat cycle, # 12 EA, 3 Refill(s), Pharmacy: [id number], 163, cm, 12/21/21 17:49:00 EST, Height/Length Dosing, 38.56, kg, 12/21/21 17:49:00 EST, Weigh... Start Date: 02/07/22 Status: Ordered Problem List Condition Confirmation Course Effective Dates Status H ealth Status Informant Amenorrhea Confirmed Active Anxiety Confirmed Active Decrease in appetite Confirmed Active Epigastric pain Confirmed Active Lipoma of abdominal wall Confirmed Active Loss of taste Confirmed Active Major depression, single episode Confirmed Active Menometrorrhagia Confirmed Active Nausea Confirmed Active Patient encounter status Confirmed Active Social History Social History Type Response Tobacco Never tobacco user, smokeless tobacco daily Tobacco Use:. Sex Female Patient Care team information Care Team Personnel Name: Krystal Kurtz APRN Position: Physician Member Role: Nurse Practitioner Address: Address: [address] [place] [id number] Name: Christina Cardoso MD Position: Physician Member Role: Primary Care Physician Address: Address: [address] [place] [phone] Care Team Related Persons Name: ALVARO BALBUENA Address: Home [address] [place], [place] [phone] [facility] Name: ALVARO BALBUENA Address: Home [address] [place], [place] [id number] [facility] Name: CAROLINA BALBUENA Address: [facility]
--- OUTSIDE RECORDS SUMMARY | 2024-02-03 12:34 | XMS_ITS | Continuity of Care Document ---
Author Organization [facility] [place] Address [address] [place] [address] Care Team Providers Care Dietitian Name Role Phone MELVA WATTS APRN Primary Care Physician [phone] Encounter [facility] NBR [id number] Date(s): 04/12/23 - 04/12/[address] [address] Encounter Diagnosis Vaginal bleeding(Discharge Diagnosis) - 04/12/23 Discharge Disposition: Home or Self Care Attending Physician: Percy Peralta MD Admitting Physician: Percy Peralta MD Allergies, Adverse Reactions, Alerts No Known Allergies Assessment and Plan Extracted from: Title:ED Provider Note Author:Apolonia Shelley Date:04/12/23 1.??Vaginal bleeding??N93.9 Orders: Discharge Patient, 04/12/23 10:17:00 EST, Home Independently Benign appearance, no evidence of significant blood loss, I do not feel need to check labs.?? Bedside ultrasound??uterine lining is not thickened, os is closed.?? Urine came back negative.?? Okay for Tylenol/Motrin to use for??discomfort as necessary, follow-up with [facility] if??persistent or worsening bleeding. Future Scheduled Tests Laboratory* Urine Culture 01/03/23 * Chlamydia trachomatis and Neisseria gonorrhoeae ([facility]) 01/03/23 Functional Status 04/12/23 Family Member Travel History No recent t [...] hr, # 8.5 g, 0 Refill(s), Pharmacy: [facility] #[id number], 162, cm, 02/25/23 11:58:00 EST, Height, 42, kg, 03/16/23 18:01:00 EST, Weight Dosing Start Date: 03/17/23 Stop Date: 04/16/23 Status: Ordered Depo-Provera Contraceptive 150 mg/mL intramuscular suspension 1 Unknown, 0 Refill(s) Start Date: 11/29/21 Status: Ordered fosfomycin 3 g oral granule for reconstitution 3 g = 1 EA, Oral, Once, # 1 packets, 0 Refill(s), Pharmacy: [facility] #[id number], 162, cm, 08/15/22 18:08:00 EDT, Height/Length Dosing, 42.64, kg, 01/15/23 20:27:00 EST, Weight Dosing Start Date: 01/15/23 Status: Ordered ondansetron 4 mg oral tablet, disintegrating 4 mg = 1 tab, Oral, TID, # 10 tab, 0 Refill(s), Pharmacy: [facility] #[id number], 162, cm, 02/25/23 11:58:00 EST, Height, 40.8, kg, 02/25/23 12:04:00 EST, Weight Dosing Start Date: 02/25/23 Status: Ordered Tessalon Perles 100 mg oral capsule 100 mg = 1 cap, Oral, TID, PRN as needed for cough, # 21 cap, 0 Refill(s), Pharmacy: [facility] #[id number], 162, cm, 02/25/23 11:58:00 EST, Height, 42, kg, 03/16/23 18:01:00 EST, Weight Dosing Start Date: 03/17/23 Stop Date: 03/24/23 Status: Ordered Mental Status 04/12/23 Eye Opening Response [place] Spontaneous ly Best Verbal Response [place] Oriented Best Motor Response [place] Obeys comman ds [place] Coma Score 15 Problem List Condition Confirmation Course Effective Dates Status H ealth Status Informant Amenorrhea Confirmed Active Anxiety Confirmed Active Decrease in appetite Confirmed Active Epigastric pain Confirmed Active Lipoma of abdominal wall Confirmed Active Loss of taste Confirmed Active Major depression, single episode Confirmed Active Menometrorrhagia Confirmed Active Nausea Confirmed Active Patient encounter status Confirmed Active Results Laboratory List Name Date Test Urine Qual 04/12/23 Most recent to oldest [Reference Range]: 1 U hCG Ql [Negative] Negative (04/12/23 9:58 AM) Vital Signs Most recent to oldest [Reference Range]: 1 Temperature Temporal Artery [36-38 Deg C ] 37 Deg C (04/12/23 8:38 AM) Peripheral Pulse Rate [60-100 bpm] 87 bp m (04/12/23 8:38 AM) Respiratory Rate [12-24 br/min] 12 br/mi n (04/12/23 8:38 AM) Blood Pressure [90-140/60-90 mmHg] 112/6 4mmHg (04/12/23 8:38 AM) Mean Arterial Pressure, Cuff [65-140 mmH g] 80 mmHg (04/12/23 8:38 AM) Weight 42.64 kg (04/12/23 8:38 AM) Weight Dosing 42.640 kg (04/12/23 8:38 AM) Height 162.56 cm (04/12/23 8:38 AM) Body Mass Index 16.14 kg/m2 (04/12/23 8:38 AM) Body Mass Index Percentile 0.25 1 (04/12/23 8:38 AM) Height/Length Percentile 45.55 2 (04/12/23 8:38 AM) Weight Percentile 0.88 3 (04/12/23 8:38 AM) 1Result Comment: ^~:!Percentile Source -[facility] 2Result Comment: ^~:!Percentile Source -CDC 3Result Comment: ^~:!Percentile Source -[facility] Social History Social History Type Response Tobacco Never tobacco user, smokeless tobacco daily Tobacco Use:. Sex Female Physician Emergency department Note * Alex Onofre MD: PERFORM Event Display: ED Note Physician Authored Date: [id number] JOSE ROBERTO BALBUENA :2005 Age:18 years Sex:Female Visit Date:04/12/2023 Primary Care Physician: MELVA WATTS APRN Basic Information Time Seen: Alex Onofre MD / 04/12/2023 09:40 Chief Complaint Pt has had 1-2 weeks of heavy vaginal bleeding and intense cramping. This morning she woke up and had vaginal bleeding with a large clot. Went to and was sent to the ER. Pt reports not having a period for the month of Jan and Feb. History Of Present Illness: Episodic vaginal bleeding??in young woman on control,??irregular menses.?? Unsure of status.?? Has picture of small clot she passed last night. ??Vaginal bleeding stopped this morning.?? Denies significant abdominal pain, no vomiting no nausea, no other bleeding??problems.?? No lightheadedness no dizziness, no shortness of breath, no chest pain, no syncope. Review of Systems: Review of Systems: Constitutional: [No fevers] Eye: [No acute visual complaints, no eye discharge] ENT: [No ear pain, nasal congestion, sore throat] Respiratory: [No shortness of breath, no cough] Cardiovascular: [No Chest pain] Gastrointestinal: [No nausea, vomiting, or diarrhea. No rectal bleeding or melena] Genitourinary: [No dysuria; no hematuria]; vaginal bleeding Musculoskeletal: [No acute back pain, neck pain, joint pain,] Integumentary: [No rashes] Neurologic: [No focal complaints.??No LOC] ?? Physical Exam: General: [Alert, thin??but well-nourished, no acute distress].?Normal vitals, Eye: [PERRL, EOMI, normal conjunctiva]. HENT: [Normocephalic, normal hearing, moist oral mucosa, no scleral icterus, no nasal discharge].?? Neck: [Ranging neck, normal inspection].?? Lungs: [Clear, non-labored respiration, no tachypnea].?? Heart: [Normal rate, regular rhythm, no murmurs]. Abdomen: [Soft, non-tender, non-distended].?Scaphoid??no discomfort on palpation Musculoskeletal: [Normal range of motion and strength, no tenderness or swelling]. Skin: [Skin is warm, no rashes]. Neurologic: [Awake, alert and oriented X4, normal tone, moving all extremities with good strength].[Ambulation intact]. Psychiatric: [Cooperative, appropriate mood and affect]. Physical Exam Vitals & Measurements T:??37?C ??(Temporal Artery)?? HR:??87??(Peripheral)?? RR:??12?? BP:??112/64?? SpO2:??100%?? HT:??45.55??(Percentile)?? HT:??162.56??cm?? WT:??0.88??(Percentile)?? WT:??42.64??kg?? BMI:??0.25??(Percentile)?? BMI:??16.14?? Pain Score:??8?? O2 Therapy:??Room air?? Procedure No Qualifying Data Assessment/Plan 1.??Vaginal bleeding??N93.9 Orders: Discharge Patient, 04/12/23 10:17:00 EST, Home Independently Benign appearance, no evidence of significant blood loss, I do not feel need to check labs.?? Bedside ultrasound??uterine lining is not thickened, os is closed.?? Urine came back negative.?? Okay for Tylenol/Motrin to use for??discomfort as necessary, follow-up with [facility] if??persistent or worsening bleeding. Medication Reconciliation Unchanged albuterol (Albuterol (Eqv-ProAir HFA) 90 mcg/inh inhalation aerosol)2 Puffs Inhale (breathe in) every 6 hours for 30 Days. Refills: 0. ?? benzonatate (Tessalon Perles 100 mg oral capsule)1 Capsules Oral (given by mouth) 3 times a day as needed as needed for cough for 7 Days. Refills: 0. ?? fosfomycin (fosfomycin 3 g oral granule for reconstitution)1 Each Oral (given by mouth) once. Refills: 0. ?? medroxyPROGESTERone (Depo-Provera Contraceptive 150 mg/mL intramuscular suspension)1 Unknown. ?? ondansetron (ondansetron 4 mg oral tablet, disintegrating)1 tab Oral (given by mouth) 3 times a day. Refills: 0. Problem List/Past Medical History Ongoing Amenorrhea Anxiety [...] smokeless tobacco daily Tobacco Use:. Lab Results Testing?? LATEST RESULTS?? HISTORICAL RESULTS?? U hCG Ql?? 04/12/23 09:58?? Negative?? 08/15/22?? Negative? Electronically Signed on 04/12/23 10:42 AM Alex Onofre MD Emergency department Discharge instructions * Alex Onofre MD: PERFORM Event Display: ED Discharge Information Authored Date: [id number] JOSE ROBERTO BALBUENA :2005 Age:18 years Sex:Female Visit Date:04/12/2023 Primary Care Physician: MELVA WATTS APRN Discharge Instructions We would like to thank you for allowing us to assist you with your healthcare needs. The following includes patient education materials and information regarding your injury/illness. Diagnosis from Today's Visit Vaginal bleeding Discharge Vitals Temperature??(Temporal Artery) 98.6 ??F (37 ??C) Heart Rate??(Peripheral) 87 Respiratory Rate?? 12 Blood Pressure?? 112/64?? SpO2?? 100% Height?? 64.00 in (162.56 cm) Weight?? 94.02 lb (42.64 kg) BMI?? 16.14 Allergies No Known Allergies No Known Medication Allergies What to Do Next Instructions from Your Care Team We will contact you if your test is positive; if it is??you should follow-up??with OB/GYNfor retest of blood?? level??and reevaluation. ??If you develop abdominal pain??or furtherbleeding??return immediately??to the emergency department. You were treated today on an emergency basis; it may be lind to contact your primary care provider to notify them of your visit today. You may have been referred to your regular doctor or a specialist, please follow up as instructed. If your condition worsens or you can't get in to see the doctor, contact the Emergency Department. Medications What How Much When Why Instructions Next Dose Unchanged albuterol (Albuterol (Eqv-ProAir HFA) 90 mcg/ inh inhalation aerosol) 2 Puffs Inhale (breathe in) Every 6 hours URI with cough and congestion Duration: 30 Days Unchanged benzonatate (Tessalon Perles 100 mg oral capsule) 1 Capsules Oral (given by mouth) 3 times a day as needed for as needed for cough URI with cough and congestion Duration: 7 Days Unchanged fosfomycin (fosfomycin 3 g oral granule for reconstitution) 1 Each Oral (given by mouth) Once Dysuria Unchanged medroxyPROGESTERone (Depo-Provera Contraceptive 150 mg/ mL intramuscular suspension) 1 Unknown ?? Unchanged ondansetron (ondansetron 4 mg oral tablet, disintegrating) 1 tab Oral (given by mouth) 3 times a day Influenza-like illness Patient/Industrial Roofer Helper Signature Patient Name:JOSE ROBERTO BALBUENA I have received this information and my questions have been answered. Patient/Industrial Roofer Helper Name: Patient/Industrial Roofer Helper Signature: Relationship to Patient: Witness Name/Signature: Date: Electronically Signed on: 04/12/2023 10:19 ESTSigned by:KUN Patient Care team information Care Team Personnel Name: MELVA WATTS APRN Position: No Access Member Role: Primary Care Physician Address: Address: [facility] [address] [facility] [place] [address] Name: Krystal Kurtz APRN Position: No Access Member Role: Nurse Practitioner Address: Address: [address] [facility] [address] [place], [place] [address] Care Team Related Persons Name: FAIZA BALBUENA Name: ALVARO BALBUENA Address: Home [address] [place] [address] [place], [place] [id number] Name: CAROLINA BALBUENA Address: [facility]
--- OUTSIDE RECORDS SUMMARY | 2024-02-03 12:34 | XMS_ITS | Continuity of Care Document ---
Author Organization [facility] Address [address] [place] [address] Care Team Providers Care Diamond Blender Name Role Phone MELVA WATTS APRN Primary Care Physician Encounter [facility] NBR [id number] Date(s): 06/27/23 - 06/27/23 [facility] Ambulatory [facility]ics [address] [place], [place] [address] Encounter Diagnosis Burning with urination(Discharge Diagnosis) - 06/27/23 Dysuria(Discharge Diagnosis) - 06/27/23 Discharge Disposition: Home or Self Care Attending [...] hr, # 8.5 g, 0 Refill(s), Pharmacy: [facility] #[id number], 162, cm, 02/25/23 11:58:00 EST, Height, 42, kg, 03/16/23 18:01:00 EST, Weight Dosing Start Date: 03/17/23 Stop Date: 04/16/23 Status: Ordered Depo-Provera Contraceptive 150 mg/mL intramuscular suspension 1 Unknown, 0 Refill(s) Start Date: 11/29/21 Status: Ordered ondansetron 4 mg oral tablet, disintegrating 4 mg = 1 tab, Oral, TID, # 10 tab, 0 Refill(s), Pharmacy: [facility] #[id number], 162, cm, 02/25/23 11:58:00 EST, Height, 40.8, [...] Results Laboratory List Name Date .Urinalysis POCT 06/27/23 Most recent to oldest [Reference Range]: 1 Method of Collect POC clean catch *NA* (06/27/23 8:06 PM) Specific [place], Ur POC 1.030 *NA* (06/27/23 8:06 PM) Specimen Color POC [Yellow] Yellow (06/27/23 8:06 PM) Glucose, Urine POC Negative mg/dL *NA* (06/27/23 8:06 PM) Bilirubin, Urine POC [Negative] Negative (06/27/23 8:06 PM) Ketones, Urine POC [Negative mg/dL] Trac e mg/dL *ABN* (06/27/23 8:06 PM) Blood, Urine POC [Negative] Negative (06/27/23 8:06 PM) pH, Urine POC 5.50 *NA* (06/27/23 8:06 PM) Protein, Urine POC [Negative mg/dL] Nega tive mg/dL (06/27/23 8:06 PM) Urobilinogen, Urine POC [0.2] 0.2 (06/27/23 8:06 PM) Nitrite, Urine POC [Negative] Negative (06/27/23 8:06 PM) Leuk Esterase, Urine POC [Negative] Nega tive (06/27/23 8:06 PM) Clarity, Urine POC [Clear] Clear (06/27/23 8:06 PM) Vital Signs Most recent to oldest [Reference Range]: 1 Temperature Oral [35.8-37.3 Deg C] 37.4 Deg C *HI* (06/27/23 7:57 PM) Peripheral Pulse Rate [60-100 bpm] 83 bp m (06/27/23 7:57 PM) Respiratory Rate [12-24 br/min] 15 br/mi n (06/27/23 7:57 PM) Blood Pressure [90-140/60-90 mmHg] 95/55 mmHg (06/27/23 7:57 PM) Mean Arterial Pressure, Cuff [65-140 mmH g] 68 mmHg (06/27/23 7:57 PM) Social History Social History Type Response Tobacco Never tobacco user, smokeless tobacco daily Tobacco Use:. Sex Female Patient Care team information Care Team Personnel Name: MELVA WATTS APRN Position: No Access Member Role: Primary Care Physician Address: Address: [facility] [address] [facility], [place] [address] Name: Krystal Kurtz APRN Position: Physician Member Role: Nurse Practitioner Address: Address: [address] [place] [address] [address] [place] [address]- Care Team Related Persons Name: FAIZA BALBUENA Name: ALVARO BALBUENA Address: [address] [place], [place] [id number] Name: CAROLINA BALBUENA Address: [facility]
--- OUTSIDE RECORDS SUMMARY | 2024-02-03 12:34 | XMS_ITS | Continuity of Care Document ---
Author Organization [facility] Address [address] [place] [address] Care Team Providers Care Bar Pilot Name Role Phone Christina Cardoso Primary Care Physician Encounter [facility] NBR [id number] Date(s): 12/21/21 - 12/21/[address] [address] [place] Encounter Diagnosis Anxiety(Discharge Diagnosis) - 12/21/21 Nausea(Discharge Diagnosis) - 12/21/21 Discharge Disposition: Home or Self Care Attending Physician: Lokesh Solorio MD Allergies, Adverse Reactions, Alerts No Known Allergies Assessment and Plan Future Appointments Functional Status 12/21/21 Recent Travel History No recent travel Other [...] #60, # 60 tab, 0 Refill(s), Pharmacy: [facility] Start Date: 12/12/21 Status: Ordered hyoscyamine 0.125 mg oral tablet, disintegrating QID, 0 Refill(s) Start Date: 11/29/21 Status: Ordered Lexapro 5 mg oral tablet 10 mg = 2 tab, Oral, Daily, Take one tab daily for 7 days then take 2 tabs daily, # 60 tab, 0 Refill(s), Pharmacy: [facility] Start Date: 12/05/21 Stop Date: 01/04/22 [...] Confirmed Active Results Laboratory List Name Date Automated Diff 12/21/21 CBC w/ Diff 12/21/21 Comprehensive Metabolic Panel (CMP) 12/11 03/03 Lipase Level 12/21/21 Most recent to oldest [Reference Range]: 1 WBC [4.5-13.5 K/mcL] 8.0 K/mcL (12/21/21 5:56 PM) RBC [4.00-6.20 Million/mcL] 4.68 Million /mcL (12/21/21 5:56 PM) Neutro Auto [42.2-75.2 %] 77.8 % *HI* (12/21/21 5:56 PM) Lymph Auto [20.5-51.1 %] 13.8 % *LOW* (12/21/21 5:56 PM) [place] Auto [1.7-9.3 %] 7.3 % (12/21/21 5:56 PM) Basophil Auto [0.0-0.2 %] 0.6 % *HI* (12/21/21 5:56 PM) BUN [8-26 mg/dL] 11 mg/dL (12/21/21 5:56 PM) Glucose Level [74-106 mg/dL] 82 mg/dL (12/21/21 5:56 PM) Potassium Level [3.5-5.1 mmol/L] 3.5 mmo l/L (12/21/21 5:56 PM) Baso Absolute [0.0-0.2 K/mcL] 0.0 K/mcL (12/21/21 5:56 PM) MCV [77.0-95.0 fL] 86.8 fL (12/21/21 5:56 PM) AST [15-41 IntlUnit/L] 27 IntlUnit/L (12/21/21 5:56 PM) ALT [14-54 IntlUnit/L] 14 IntlUnit/L (12/21/21 5:56 PM) MCHC [32.0-36.0 g/dL] 34.5 g/dL (12/21/21 5:56 PM) Osmolality [275-295 mOsm/kg] 272 mOsm/kg *LOW* (12/21/21 5:56 PM) Sodium Level [134-143 mmol/L] 137 mmol/L (12/21/21 5:56 PM) Lymph Absolute [1.2-3.4 K/mcL] 1.1 K/mcL *LOW* (12/21/21 5:56 PM) Hct [35.0-45.0 %] 40.6 % (12/21/21 5:56 PM) Lipase Level [18-51 unit/L] 25 unit/L (12/21/21 5:56 PM) Calcium Level [8.9-10.3 mg/dL] 9.9 mg/dL (12/21/21 5:56 PM) [place] Absolute [0.1-0.6 K/mcL] 0.6 K/mcL (12/21/21 5:56 PM) Albumin Level [3.5-5.0 g/dL] 5.3 g/dL *HI* (12/21/21 5:56 PM) Protein Total [6.5-8.1 g/dL] 8.2 g/dL *HI* (12/21/21 5:56 PM) MCH [27.0-31.0 pg] 29.9 pg (12/21/21 5:56 PM) Neutro Absolute [1.4-6.5 K/mcL] 6.2 K/mc L (12/21/21 5:56 PM) Bilirubin Total [0.2-1.2 mg/dL] 1.6 mg/d L *HI* (12/21/21 5:56 PM) Hgb [11.5-15.5 g/dL] 14.0 g/dL (12/21/21 5:56 PM) Alk Phos [38-130 IntlUnit/L] 66 IntlUnit /L (12/21/21 5:56 PM) MPV [7.4-10.4 fL] 11.2 fL *HI* (12/21/21 5:56 PM) Platelets [156-312 K/mcL] 321 K/mcL *HI* (12/21/21 5:56 PM) CO2 [22-32 mmol/L] 18 mmol/L *LOW* (12/21/21 5:56 PM) Eos Absolute [0.0-0.2 K/mcL] 0.0 K/mcL (12/21/21 5:56 PM) Chloride Level [98-111 mmol/L] 103 mmol/ L (12/21/21 5:56 PM) RDW-CV [11.5-14.5 %] 11.7 % (12/21/21 5:56 PM) A/G Ratio 1.8 *NA* (12/21/21 5:56 PM) BUN/Creat Ratio [8.0-20.0] 19.6 (12/21/21 5:56 PM) Globulin 2.9 *NA* (12/21/21 5:56 PM) Imm Gran Absolute 0.03 *NA* (12/21/21 5:56 PM) Imm Gran Auto [0.0-0.5 %] 0.4 % (12/21/21 5:56 PM) Creatinine Level [0.44-1.00 mg/dL] 0.56 mg/dL (12/21/21 5:56 PM) Anion Gap [3.0-12.0] 16.0 1 *HI* (12/21/21 5:56 PM) Eos, Auto [0.00-3.00 %] 0.10 % (12/21/21 5:56 PM) 1Result Comment: Electrolytes verified by repeat analysis. Vital Signs Most recent to oldest [Reference Range]: 1 2 3 Temperature Oral [36-37.6 Deg C] 36.1 Deg C (12/21/21 5:23 PM) Peripheral Pulse Rate [55-90 bpm] 117 bpm *HI* (12/21/21 6:58 PM) 105 bpm *HI* (12/21/21 5:49 PM) 140 bpm *HI* (12/21/21 5:23 PM) Respiratory Rate [12-24 br/min] 14 br/min (12/21/21 6:58 PM) 20 br/min (12/21/21 6:30 PM) Blood Pressure [90-140/60-90 mmHg] 106/69mmHg (12/21/21 6:58 PM) 131/72mmHg (12/21/21 5:23 PM) Weight Dosing 38.56 kg (12/21/21 5:49 PM) Weight Estimated 38.56 kg (12/21/21 5:23 PM) Height/Length Dosing 163.000 cm (12/21/21 5:49 PM) Height/Length Estimated 163.000 cm (12/21/21 5:23 PM) Social History Social History Type Response Tobacco Never tobacco user, smokeless tobacco daily Tobacco Use:. Sex Female Hospital Discharge Instructions Follow Up Care 12/21/2021 17:23:49 With:KEREN Webber Address: [address] [place] [address] When: Unknown Comments:Your evaluation in the emergency department today??was performed by above SURYA.Start your buspironetomorrow??that was prescribed to youReturn to the emergency department for any new or worsening symptomsFollow-up with your primary care Physician Emergency department Note * KEREN Webber: PERFORM Event Display: ED Note Physician Authored Date: [id number] BALBUENAJOSE ROBERTO :2005 Age:16 years Sex:Female Visit Date:12/21/2021 Primary Care Physician: Christina Cardoso Basic Information Time Seen: KEREN Webber / 12/21/2021 17:57 Chief Complaint pt presents with report of panic attack that she has frequently. pt reports nauseas but denies vomiting. History Of Present Illness: Patient is a 16 yr old female who is here with nausea creating anxiety due to the fact that she is afraid of vomiting. She has a history of anxiety and is on several medication s for this. She has taken zofran at home, got no relief from this and for this reason comes to the Emergency Department for eval, patient denies SI/HI Review of Systems: Constitutional: [ No fevers, ??No chills, ??No sweats] Eye: ??[No recent visual problems] ENT: ??[No ear pain, ??No nasal congestion, ??No sore throat] Respiratory: ??[No shortness of breath, ??No cough] Cardiovascular: ??[No Chest pain, ??No palpitations, ??No syncope] Gastrointestinal:?+Nausea, ??No vomiting, ??No diarrhea] Musculoskeletal: [No back pain, No neck pain, No joint pain, No muscle pain, No decreased range of motion] Integumentary: [No rash, ??No pruritus, ??No abrasions] Neurologic: [Alert & oriented X 4] Psychiatric:?+ anxiety, ??No depression] Physical Exam Vitals & Measurements T:??36.1?C ??(Oral)?? HR:??117??(Peripheral)?? RR:??14?? BP:??106/69?? SpO2:??100%?? HT:??163.000??cm?? WT:??38.56??kg??(Estimated)?? Patient alert oriented age-appropriate well-nourished nontoxic, thin in appearance Normocephalic atraumatic Neck supple nontender EOM intact, PERRLA, sclera nonicteric Clear to auscultation bilaterally Regular rate and rhythm no murmurs Normal gait and station, normal strength all extremities Neuro exam intact without focal deficit Appropriate mood and affect Medical Decision Making: While here in the emergency department patient was evaluated and ultimately was found to be??anxious. ??She has a history of this.?? Laboratory evaluation not reveal any acute findings Patient was given a liter of fluids??as well as Phenergan for her nausea??she did not like the factthat this made her tired and groggy and asked for it to be discontinued. ??She received approximately 500 cc??of fluid??and requested discharge. Procedure No Qualifying Data Assessment/Plan 1.??Anxiety??F41.9 Patient be discharged I told her to follow-up with her primary care she will continue her medications as prescribed and start her buspirone as prescribed tomorrow which she has not started yet. ??Shewill??at this time??return to the emergency department if there is any worsening concerns I discussed this with her father telephone with her permission??who understands all aspects of today's visit and agrees with discharge. 2.??Nausea??R11.0 Orders: Phenergan, 25 mg = 1 mL, IV Piggyback, Vial, every 6 hr for 30 days, Administer over: 15 minutes, First Dose: 12/21/21 18:11:00 EST, Stop Date: 01/20/22 18:10:00 EST, Physician Stop, 204 mL/hr Sodium Chloride 0.9% 1,000 mL, Total Volume (mL): 1,000, 1,000 mL, Soln-IV, IV Bolus, 999 mL/hr, Order Duration: 1 times, Start Date: 12/21/21 18:11:00 EST, Stop Date: 12/21/21 19:10:00 EST, 38.56 kg, Populate Charting Weight From Order, 1.32, m2 Discharge Patient, 12/21/21 19:25:00 EST Test Urine Qual, Urine, Stat Collect, 12/21/21 18:38:00 EST, Once, Nurse collect, Print Label Follow Up With When Contact Information KEREN Webber [address] [place] [address] Additional Instructions: Your evaluation in the emergency department today??was performed by above SURYA. Start your buspirone tomorrow??that was prescribed to you Return to the emergency department for any new or worsening symptoms Follow-up with your primary care Medication Reconciliation Unchanged busPIRone (busPIRone 10 mg oral tablet)2 times a day. 1 Unknown. ?? escitalopram (escitalopram 5 mg oral tablet)1 tablet PO QD for 7 days then increase to 2 tablet once a day Disp #60. Refills: 0. ?? escitalopram (Lexapro 5 mg oral tablet)2 tab Oral (given by mouth) every day for 30 Days. Take one tab daily for 7 days then take 2 tabs daily. Refills: 0. ?? hyoscyamine (hyoscyamine 0.125 mg oral tablet, disintegrating)4 times a day. ?? medroxyPROGESTERone (Depo-Provera Contraceptive 150 mg/mL intramuscular suspension)1 Unknown. ?? medroxyPROGESTERone (medroxyPROGESTERone 150 mg/mL intramuscular suspension)1 Unknown. ?? promethazine (promethazine 12.5 mg oral tablet)4 times a day. Problem List/Past Medical History Ongoing Amenorrhea Anxiety Decrease in appetite Epigastric pain Lipoma of abdominal wall Loss of taste Major depression, single episode Menometrorrhagia Nausea Patient encounter status Historical No qualifying data Medication Administration Given Sodium Chloride 0.9%, 1000 mL, IV Bolus Phenergan, IV Piggyback Allergies No Known Allergies No Known Medication Allergies Social History Alcohol Never Electronic Cigarette/Vaping Electronic Cigarette Use: Use, within last 90 days. Use per Day: 1-25 Inhales/day. Tobacco Never tobacco user, smokeless tobacco daily Tobacco Use:. Lab Results CBC and Differential?? LATEST RESULTS?? WBC?? 12/21/21 17:56?? 8.0?? RBC?? 12/21/21 17:56?? 4.68?? Hgb?? 12/21/21 17:56?? 14.0?? Hct?? 12/21/21 17:56?? 40.6?? MCV?? 12/21/21 17:56?? 86.8?? MCH?? 12/21/21 17:56?? 29.9?? MCHC?? 12/21/21 17:56?? 34.5?? RDW-CV?? 12/21/21 17:56?? 11.7?? Platelets?? 12/21/21 17:56?? 321 ??High?? MPV?? 12/21/21 17:56?? 11.2 ??High?? Neutro Auto?? 12/21/21 17:56?? 77.8 ??High?? Lymph Auto?? 12/21/21 17:56?? 13.8 ??Low?? [place] Auto?? 12/21/21 17:56?? 7.3?? Eos, Auto?? 12/21/21 17:56?? 0.10?? Basophil Auto?? 12/21/21 17:56?? 0.6 ??High?? Imm Gran Auto?? 12/21/21 17:56?? 0.4?? Neutro Absolute?? 12/21/21 17:56?? 6.2?? Lymph Absolute?? 12/21/21 17:56?? 1.1 ??Low?? [place] Absolute?? 12/21/21 17:56?? 0.6?? Eos Absolute?? 12/21/21 17:56?? 0.0?? Baso Absolute?? 12/21/21 17:56?? 0.0?? Imm Gran Absolute?? 12/21/21 17:56?? 0.03? Routine Chemistry?? LATEST RESULTS?? Sodium Level?? 12/21/21 17:56?? 137?? Potassium Level?? 12/21/21 17:56?? 3.5?? Chloride Level?? 12/21/21 17:56?? 103?? CO2?? 12/21/21 17:56?? 18 ??Low?? Alk Phos?? 12/21/21 17:56?? 66?? AST?? 12/21/21 17:56?? 27?? ALT?? 12/21/21 17:56?? 14?? BUN?? 12/21/21 17:56?? 11?? Glucose Level?? 12/21/21 17:56?? 82?? Creatinine Level?? 12/21/21 17:56?? 0.56?? BUN/Creat Ratio?? 12/21/21 17:56?? 19.6?? Calcium Level?? 12/21/21 17:56?? 9.9?? Protein Total?? 12/21/21 17:56?? 8.2 ??High?? Albumin Level?? 12/21/21 17:56?? 5.3 ??High?? Globulin?? 12/21/21 17:56?? 2.9?? A/G Ratio?? 12/21/21 17:56?? 1.8?? Bilirubin Total?? 12/21/21 17:56?? 1.6 ??High?? Anion Gap?? 12/21/21 17:56?? 16.0 ??High?? Lipase Level?? 12/21/21 17:56?? 25?? Osmolality?? 12/21/21 17:56?? 272 ??Low? Electronically Signed on 12/21/21 08:32 PM KEREN Webber Emergency department Discharge instructions * KEREN Webber: PERFORM Event Display: ED Discharge Information Authored Date: [id number] JOSE ROBERTO BALBUENA :2005 Age:16 years Sex:Female Visit Date:12/21/2021 Primary Care Physician: Christina Cardoso Discharge Instructions We would like to thank you for allowing us to assist you with your healthcare needs. The following includes patient education materials and information regarding your injury/illness. Diagnosis from Today's Visit Anxiety Nausea Discharge Vitals Temperature??(Oral) 97.0 ??F (36.1 ??C) Heart Rate??(Peripheral) 117 Respiratory Rate?? 14 Blood Pressure?? 106/69?? Height?? 64.17 in (163.000 cm) Weight??(Estimated) 85.02 lb (38.56 kg) Allergies No Known Allergies No Known Medication Allergies What to Do Next You Need to Schedule the Following Appointments Follow Up with??KEREN Webber Why: Your evaluation in the emergency department today??was performed by jessy L[place]. Start your buspirone tomorrow??that was prescribed to you Return to the emergency department for any new or worsening symptoms Follow-up with your primary care Where: [address] [place] [address] Upcoming Scheduled Appointments Friday 9:30 AM EST ?? Friday 10:00 AM EST ?? You were treated today on an emergency [...] Much When Why Instructions Next Dose Unchanged busPIRone (busPIRone 10 mg oral tablet) 2 times a day 1 Unknown ?? Unchanged escitalopram (escitalopram 5 mg oral tablet) See instructions 1 tablet PO QD for 7 days then increase to 2 tablet once a day Disp #60 ?? Unchanged escitalopram (Lexapro 5 mg oral tablet) 2 tab Oral (given by mouth) Every day Anxiety Duration: 30 Days Take one tab daily for 7 days then take 2 tabs daily ?? Unchanged hyoscyamine (hyoscyamine 0.125 mg oral tablet, disintegrating) 4 times a day Unchanged medroxyPROGESTERone (Depo-Provera Contraceptive 150 mg/ mL intramuscular suspension) 1 Unknown ?? Unchanged medroxyPROGESTERone (medroxyPROGESTERone 150 mg/ mL intramuscular suspension) 1 Unknown ?? Unchanged promethazine (promethazine 12.5 mg oral tablet) 4 times a day Tests Performed Medications and Immunizations Administered Given Sodium Chloride 0.9%, 1000 mL, IV Bolus Phenergan, IV Piggyback Lab Test Name Test Result Date/Time WBC 8.0 K/mcL 12/21/2021 17:56 EST RBC 4.68 Million/mcL 12/21/2021 17:56 EST Hgb 14.0 g/dL 12/21/2021 17:56 EST Hct 40.6 % 12/21/2021 17:56 EST MCV 86.8 fL 12/21/2021 17:56 EST MCH 29.9 pg 12/21/2021 17:56 EST MCHC 34.5 g/dL 12/21/2021 17:56 EST RDW-CV 11.7 % 12/21/2021 17:56 EST Platelets 321 K/mcL 12/21/2021 17:56 EST MPV 11.2 fL 12/21/2021 17:56 EST Neutro Auto 77.8 % 12/21/2021 17:56 EST Lymph Auto 13.8 % 12/21/2021 17:56 EST [place] Auto 7.3 % 12/21/2021 17:56 EST Eos, Auto 0.10 % 12/21/2021 17:56 EST Basophil Auto 0.6 % 12/21/2021 17:56 EST Imm Gran Auto 0.4 % 12/21/2021 17:56 EST Neutro Absolute 6.2 K/mcL 12/21/2021 17:56 EST Lymph Absolute 1.1 K/mcL 12/21/2021 17:56 EST [place] Absolute 0.6 K/mcL 12/21/2021 17:56 EST Eos Absolute 0.0 K/mcL 12/21/2021 17:56 EST Baso Absolute 0.0 K/mcL 12/21/2021 17:56 EST Imm Gran Absolute 0.03 12/21/2021 17:56 EST Sodium Level 137 mmol/L 12/21/2021 17:56 EST Potassium Level 3.5 mmol/L 12/21/2021 17:56 EST Chloride Level 103 mmol/L 12/21/2021 17:56 EST CO2 18 mmol/L 12/21/2021 17:56 EST Alk Phos 66 IntlUnit/L 12/21/2021 17:56 EST AST 27 IntlUnit/L 12/21/2021 17:56 EST ALT 14 IntlUnit/L 12/21/2021 17:56 EST BUN 11 mg/dL 12/21/2021 17:56 EST Glucose Level 82 mg/dL 12/21/2021 17:56 EST Creatinine Level 0.56 mg/dL 12/21/2021 17:56 EST BUN/Creat Ratio 19.6 12/21/2021 17:56 EST Calcium Level 9.9 mg/dL 12/21/2021 17:56 EST Protein Total 8.2 g/dL 12/21/2021 17:56 EST Albumin Level 5.3 g/dL 12/21/2021 17:56 EST Globulin 2.9 12/21/2021 17:56 EST A/G Ratio 1.8 12/21/2021 17:56 EST Bilirubin Total 1.6 mg/dL 12/21/2021 17:56 EST Anion Gap 16.0 12/21/2021 17:56 EST Lipase Level 25 unit/L 12/21/2021 17:56 EST Osmolality 272 mOsm/kg 12/21/2021 17:56 EST Patient/Motor Brakeman Signature Patient Name:JOSE ROBERTO BALBUENA I have received this information and my questions have been answered. Patient/Motor Brakeman Name: Patient/Motor Brakeman Signature: Relationship to Patient: Witness Name/Signature: Date: Electronically Signed on: 12/21/2021 19:28 ESTSigned by:AB Patient Care team information Care Team Personnel Name: Krystal Kurtz APRN Position: Physician Member Role: Nurse Practitioner Address: Address: [address] [place] [address] Name: Christina Cardoso Position: Physician Member Role: Primary Care Physician Address: Address: [address] [place] [address] Name: KEREN Webber Position: Physician Member Role: Physician Criminology Professor Address: Address: [address] [place] [address] Name: Jocelyne Florence Position: Nurse Member Role: ED Nurse Care Team Related Persons Name: ALVARO BALBUENA Address: Home [address] [place], [place] [id number] [facility] Name: ALVARO BALBUENA Address: Home [address] [place] [phone] [facility] Name: CAROLINA BALBUENA Address: [facility]
--- OUTSIDE RECORDS SUMMARY | 2024-02-03 12:34 | XMS_ITS | Continuity of Care Document ---
Author Organization [facility] Address [address] [place] [address] Care Team Providers Care Rn Obgyn Name Role Phone Christina Cardoso MD Primary Care Physician [phone] Encounter [facility] FIN NBR [id number] Date(s): 01/03/23 - 01/03/23 [facility] [address] [place], [place] [address] Encounter Diagnosis Burning with urination(Discharge Diagnosis) - 01/03/23 Discharge Disposition: Home or Self Care Attending Physician: Ayla Hopper APRN Allergies, Adverse Reactions, Alerts No Known Allergies Assessment and Plan Future Scheduled Tests Laboratory* Urine Culture 01/03/23 * Chlamydia trachomatis and Neisseria gonorrhoeae (GeneXpert) 01/03/23 Functional Status 01/03/23 Other exposure to Infectious Disease Non e [...] Results Laboratory List Name Date .Urinalysis POCT 01/03/23 Most recent to oldest [Reference Range]: 1 Method of Collect POC cc *NA* (01/03/23 12:15 PM) Specific [place], Ur POC 1.025 *NA* (01/03/23 12:15 PM) Specimen Color POC [Yellow] Light Yellow (01/03/23 12:15 PM) Glucose, Urine POC Negative mg/dL *NA* (01/03/23 12:15 PM) Bilirubin, Urine POC [Negative] Negative (01/03/23 12:15 PM) Ketones, Urine POC [Negative mg/dL] Nega tive mg/dL (01/03/23 12:15 PM) Blood, Urine POC [Negative] Trace *ABN* (01/03/23 12:15 PM) pH, Urine POC 7.00 *NA* (01/03/23 12:15 PM) Protein, Urine POC [Negative mg/dL] Trac e mg/dL *ABN* (01/03/23 12:15 PM) Urobilinogen, Urine POC [0.2] 1.0 *ABN* (01/03/23 12:15 PM) Nitrite, Urine POC [Negative] Negative (01/03/23 12:15 PM) Leuk Esterase, Urine POC [Negative] Nega tive (01/03/23 12:15 PM) Clarity, Urine POC [Clear] Slightly Clou dy *ABN* (01/03/23 12:15 PM) Vital Signs Most recent to oldest [Reference Range]: 1 Temperature Tympanic [36.6-38.1 Deg C] 3 6.7 Deg C (01/03/23 12:10 PM) Peripheral Pulse Rate [60-100 bpm] 90 bp m (01/03/23 12:10 PM) Respiratory Rate [12-24 br/min] 16 br/mi n (01/03/23 12:10 PM) Blood Pressure [90-140/60-90 mmHg] 123/5 5mmHg (01/03/23 12:10 PM) Mean Arterial Pressure, Cuff [70-110 mmH g] 78 mmHg (01/03/23 12:10 PM) Social History Social History Type Response Tobacco Never tobacco user, smokeless tobacco daily Tobacco Use:. Sex Female Patient Care team information Care Team Personnel Name: Krystal Kurtz APRN Position: No Access Member Role: Nurse Practitioner Address: Address: [address] [place] [address] [place] [address] Name: Christina Cardoso MD Position: Physician Member Role: Primary Care Physician Address: Address: [address] [place] [phone] Care Team Related Persons Name: ALVARO BALBUENA Address: Home [address] [place], [place] [id number] [facility] Name: ALVARO BALBUENA Address: Home [address] [place] [id number] Name: CAROLINA BALBUENA Address: [facility]
--- OUTSIDE RECORDS SUMMARY | 2024-02-03 12:34 | XMS_ITS | Continuity of Care Document ---
Author Organization [facility] Address [address] [place] [address] Care Team Providers Care Buyers' Agent Name Role Phone Christina Cardoso MD Primary Care Physician Encounter [facility] FIN NBR [id number] Date(s): 01/15/23 - 01/15/[address] [address] [place] Encounter Diagnosis Dysuria(Final) - Discharge Disposition: Home or Self Care [...] Once, # 1 packets, 0 Refill(s), Pharmacy: [facility][id number], 162, cm, 08/15/22 18:08:00 EDT, Height/Length Dosing, [...] Xpress MVP (GeneXpert) (Vaginitis PCR Pa adam) 01/15/23 Most recent to oldest [Reference Range]: 1 Bacterial Vaginosis MVP (GeneXpert) [Neg ative] Negative (01/15/23 8:30 PM) Elvira glab-krus MVP (GeneXpert) [Not D etected] Not Detected (01/15/23 8:30 PM) Elvira group MVP (GeneXpert) [Not Detec khari] Not Detected (01/15/23 8:30 PM) Trichomonas vaginalis MVP (GeneXpert) [N ot Detected] Not Detected (01/15/23 8:30 PM) Orders for Microbiology Reports Name Date Urine Culture 01/15/23 Microbiology Reports TEST:Urine Culture STATUS:Order in Progress BODY SITE: SOURCE:Urine, Clean Catch COLLECTED DATE/TIME:01/15/23 8:30 PM PRELIMINARY REPORT No growth first am read Social History Social History Type Response Tobacco Never tobacco user, smokeless tobacco daily Tobacco Use:. Sex Female Patient Care team information Care Team Personnel Name: Krystal Kurtz APRN Position: No Access Member Role: Nurse Practitioner Address: Address: [address] [place] [address] Name: Christina Cardoso MD Position: Physician Member Role: Primary Care Physician Address: Address: [address] [place] [phone] Care Team Related Persons Name: ALVARO BALBUENA Address: Home [address] [place], [place] [phone] Name: ALVARO BALBUENA Address: Home [address] [place], [place] [phone] [facility] Name: CAROLINA BALBUENA Address: [facility]
--- OUTSIDE RECORDS SUMMARY | 2024-02-03 12:34 | XMS_ITS | Continuity of Care Document ---
Author Organization [facility] Ambulatory Clinics Address [address] [place] [address] Care Team Providers Care Solicitor Patent Name Role Phone MELVA WATTS APRN Primary Care Physician Encounter [facility] NBR [id number] Date(s): 05/14/23 - 05/14/23 [facility] [address] [place] [address]- Encounter Diagnosis Tonsillitis(Discharge Diagnosis) - 05/14/23 Acute tonsillitis, unspecified(Final) - Discharge Disposition: Home or Self Care Attending Physician: Hiwot Pelaez PA-C Allergies, Adverse Reactions, Alerts No Known Allergies Assessment and Plan Extracted from: Title:Office Visit Note Author:KEREN Soler Date:05/14/23 1.??Tonsillitis??J03.90 ??Patient presenting with signs and symptoms of tonsillitis.?? She adamantly refuses strep testing today. ??Explained to patient that??antibiotics are not indicated unless she has a positive strep test. ??She does not have exudate on her tonsils and has not had fever, chills, malaise, body aches. ??Do not suspect strep pharyngitis however I still did encourage that we test for this today. ??She again declines.?? She was given 8 mg of dexamethasone p.o. today after discussion??of risks and benefits given her report of??difficulty swallowing, sense that her throat is closing,??difficulty tolerating??foods.?? Discussed if this is a viral tonsillitis she should improve with this treatment, but if not readily improving that I would strongly encourage return for recheck and further testing.?? Encouraged she avoid any NSAIDs??for the next 48 hours. ??She can take Tylenol if needed for discomfort. ??Recheck as needed Future Scheduled Tests Laboratory* Urine Culture 01/03/23 [...] hr, # 8.5 g, 0 Refill(s), Pharmacy: [facility] #[id number], 162, cm, 02/25/23 11:58:00 EST, Height, 42, kg, 03/16/23 18:01:00 EST, Weight Dosing Start Date: 03/17/23 Stop Date: 04/16/23 Status: Ordered Depo-Provera Contraceptive 150 mg/mL intramuscular suspension 1 Unknown, 0 Refill(s) Start Date: 11/29/21 Status: Ordered fosfomycin 3 g oral granule for reconstitution 3 g = 1 EA, Oral, Once, # 1 packets, 0 Refill(s), Pharmacy: [facility] #[id number], 162, cm, 08/15/22 18:08:00 EDT, Height/Length Dosing, 42.64, kg, 01/15/23 20:27:00 EST, Weight Dosing Start Date: 01/15/23 Status: Ordered fosfomycin 3 g oral granule for reconstitution 3 g = 1 EA, Oral, Once, # 1 packets, 0 Refill(s), Pharmacy: [facility] #[id number], 162.56, cm, 04/12/23 8:47:00 EST, Height, 41.73, kg, 04/22/23 17:44:00 EDT, Weight Dosing Start Date: 04/22/23 Status: Ordered fosfomycin 3 g oral granule for reconstitution 3 g = 1 EA, Oral, Once, # 1 packets, 0 Refill(s), Pharmacy: [facility] #[id number], 162.56, cm, 04/12/23 8:47:00 EST, Height, 41.73, kg, 04/22/23 17:44:00 EDT, Weight Dosing Start Date: 04/22/23 Status: Ordered fosfomycin 3 g oral granule for reconstitution 3 g = 1 EA, Oral, Once, # 1 packets, 0 Refill(s), Pharmacy: [facility] #[id number], 162.56, cm, 04/12/23 8:47:00 EST, Height, 41.73, kg, 04/22/23 17:44:00 EDT, Weight Dosing Start Date: 04/22/23 Status: Ordered ondansetron 4 mg oral tablet, disintegrating 4 mg = 1 tab, Oral, TID, # 10 tab, 0 Refill(s), Pharmacy: [facility] #[id number], 162, cm, 02/25/23 11:58:00 EST, Height, 40.8, kg, 02/25/23 12:04:00 EST, Weight Dosing Start Date: 02/25/23 Status: Ordered Tessalon Perles 100 mg oral capsule 100 mg = 1 cap, Oral, TID, PRN as needed for cough, # 21 cap, 0 Refill(s), [facility]acy: [facility] #[id number], 162, cm, 02/25/23 11:58:00 EST, Height, 42, kg, 03/16/23 18:01:00 EST, Weight Dosing Start Date: 03/17/23 Stop Date: 03/24/23 Status: Ordered Problem List Condition Confirmation Course [...] 1 Temperature Tympanic [36.6-38.1 Deg C] 3 6.5 Deg C *LOW* (05/14/23 12:49 PM) Peripheral Pulse Rate [60-100 bpm] 99 bp m (05/14/23 12:49 PM) Respiratory Rate [12-24 br/min] 16 br/mi n (05/14/23 12:49 PM) Blood Pressure [90-140/60-90 mmHg] 102/5 9mmHg (05/14/23 12:49 PM) Mean Arterial Pressure, Cuff [65-140 mmH g] 73 mmHg (05/14/23 12:49 PM) Social History Social History Type Response Tobacco Never tobacco user, smokeless tobacco daily Tobacco Use:. Sex Female Physician Outpatient Note * Hiwot Pelaez PA-C: PERFORM Event Display: Office Clinic Note Physician Authored Date: [id number] JOSE ROBERTO BALBUENA :2005 Age:18 years Sex:Female Visit Date:05/14/2023 Primary Care Physician: MELVA WATTS APRN Chief Complaint Sore throat for the last two weeks intermittently. Last three days sore throat has worsened. Worse on left side. No fever, nausea or vomiting. Declines strep test. History of Present Illness This is a 18-year-old female who presents for evaluation of sore throat. ??Patient reports that bela had intermittent sore throat for the past 2 weeks, symptoms have been worsening over the past 3days.?? She reports??sharp pain with swallowing in the throat, sometimes it feels like her throat is closing. ??She denies any fever, chills, body aches, fatigue. ??No nausea, vomiting, abdominal pain, headache. ??No congestion or cough.?? She refuses strep test today, notes it is traumatic for her Physical Exam Vitals & Measurements T:??36.5?C ??(Tympanic)?? HR:??99??(Peripheral)?? RR:??16?? BP:??102/59?? SpO2:??100%?? General: A&O x 3, thin, well-hydrated, no acute distress Eyes: PERRLA, no redness or drainage Ears: auditory canals non-tender bilaterally, bilateral TMs translucent and pearly hill Nose: nares moist and patent Mouth: moist mucous membranes without lesions Throat:??Tonsils 3+ with erythema but no exudate,??no uvular deviation or abscess appreciated Neck:??Mildly enlarged anterior cervical lymphadenopathy Chest: symmetric rise Heart: normal S1S2, no murmurs, rubs, gallops Lungs: equal and symmetric respiratory effort, lungs clear to auscultation without wheezes, rales, rhonchi Assessment/Plan 1.??Tonsillitis??J03.90 ??Patient presenting with signs and symptoms of tonsillitis.?? She adamantly refuses strep testing today. ??Explained to patient that??antibiotics are not indicated unless she has a positive strep test. ??She does not have exudate on her tonsils and has not had fever, chills, malaise, body aches. ??Do not suspect strep pharyngitis however I still did encourage that we test for this today. ??She again declines.?? She was given 8 mg of dexamethasone p.o. today after discussion??of risks and benefits given her report of??difficulty swallowing, sense that her throat is closing,??difficulty tolerating??foods.?? Discussed if this is a viral tonsillitis she should improve with this treatment, but if not readily improving that I would strongly encourage return for recheck and further testing.?? Encouraged she avoid any NSAIDs??for the next 48 hours. ??She can take Tylenol if needed for discomfort. ??Recheck as needed Problem List/Past Medical History Ongoing Amenorrhea Anxiety [...] reconstitution, 3 g= 1 EA, Oral, Once fosfomycin 3 g oral granule for reconstitution, 3 g= 1 EA, Oral, Once fosfomycin 3 g oral granule for reconstitution, 3 g= 1 EA, Oral, Once fosfomycin 3 g oral granule for reconstitution, [...] Comments : Unit: Unknown Electronically Signed on 05/14/23 02:30 PM Hiwot Pelaez PA-C Patient Care team information Care Team Personnel Name: MELVA WATTS APRN Position: No Access Member Role: Primary Care Physician Address: Address: [address], [place] [address] Name: Krystal Kurtz APRN Position: Physician Member Role: Nurse Practitioner Address: Address: [address] [place] [address] [address] [place], [place] [address] Care Team Related Persons Name: FAIZA BALBUENA Name: ALVARO BALBUENA Address: [address] [place], [place] [id number] Name: CAROLINA BLABUENA Address: [facility]
--- OUTSIDE RECORDS SUMMARY | 2024-02-03 12:35 | XMS_ITS | Continuity of Care Document ---
Author Organization [facility] Address [address] [place] [address] Care Team Providers Care Crown Presser Name Role Phone MELVA WATTS APRN Primary Care Physician Encounter [facility] NBR [id number] Date(s): 08/11/23 - 08/11/[address] [address]- Encounter Diagnosis Conjunctivitis of left eye(Discharge Diagnosis) - 08/11/23 Viral URI(Discharge Diagnosis) - 08/11/23 Discharge Disposition: Home or Self Care Attending Physician: Nori Crum MD Admitting Physician: Nori Crum MD Allergies, Adverse Reactions, Alerts No Known Allergies Assessment and Plan Extracted from: Title:ED Provider Note Author:Nori Crum MD Adonay e:08/11/23 Assessment/Plan 1.??Conjunctivitis of left eye??H10.9 2.??Viral URI??J06.9 Orders: erythromycin ophthalmic, 1 alice, Eye-Left, Ointment, QID, First Dose: 08/12/23 9:00:00 EDT Discharge Patient, 08/11/23 22:53:00 EDT, Home Independently Patient Education Upper Respiratory Infection, Adult Bacterial Conjunctivitis, Adult Follow Up With When Contact Information primary care physician Within 3 to 5 days Additional Instructions: Future Appointments Future Scheduled Tests Laboratory* Urine Culture 01/03/23 * Chlamydia trachomatis and Neisseria gonorrhoeae (GeneXpert) 01/03/23 Radiology* US Transvaginal Non-OB 06/28/23 * CT Abdomen and Pelvis w/ Contrast 08/15/23 Immunizations Given and Recorded Vaccine Date Status Refusal Reason varicella virus vaccine 1 10/18/09 Recorded varicella virus vaccine 2 08/30/05 Recorded measles/mumps/rubella virus vaccine 3 9/8/10 Rec orded measles/mumps/rubella virus vaccine 4 08/30/05 [...] hr, # 8.5 g, 0 Refill(s), [id number] 162, cm, 02/25/23 11:58:00 EST, Height, 42, kg, 03/16/23 18:01:00 EST, Weight Dosing Start Date: 03/17/23 Stop Date: 04/16/23 Status: Ordered Depo-Provera Contraceptive 150 mg/mL intramuscular suspension 1 Unknown, 0 Refill(s) Start Date: 11/29/21 Status: Ordered Fosfomycin Tromethamine 3 g oral granule for reconstitution 3 g = 1 EA, Oral, Once, # 1 packets, 0 Refill(s), Pharmacy: [facility] #[id number], 162.56, cm, 04/12/23 8:47:00 EST, Height, 42.46, kg, 06/10/23 19:28:00 EDT, Weight Dosing Start Date: 07/03/23 Status: Ordered ondansetron 4 mg oral tablet, disintegrating 4 mg = 1 tab, Oral, TID, # 10 tab, 0 Refill(s), Pharmacy: [facility] #[id number], 162, cm, 02/25/23 11:58:00 EST, Height, 40.8, kg, 02/25/23 12:04:00 EST, Weight Dosing Start Date: 02/25/23 Status: Ordered penicillin V potassium 250 mg/5 mL oral liquid 500 mg = 10 mL, Oral, every 8 hr, # 300 mL, 0 Refill(s), Pharmacy: [facility] #[id number], 162.56, cm, 04/12/23 8:47:00 EST, Height, 42.64, kg, 08/09/23 10:35:00 EDT, Weight Dosing Start Date: 08/09/23 Stop Date: 08/19/23 Status: Ordered Mental Status 08/11/23 Eye Opening Response Belkis Spontaneous ly Best Verbal Response Sturgis Oriented Best Motor Response Belkis Obeys comman ds Sturgis Coma Score 15 Problem List Condition Confirmation [...] Temperature Temporal Artery [36-38 Deg C ] 36.6 Deg C (08/11/23 10:47 PM) Heart Rate Monitored [60-100 bpm] 97 bpm (08/11/23 10:47 PM) Respiratory Rate [12-24 br/min] 20 br/mi n (08/11/23 10:47 PM) Blood Pressure [90-140/60-90 mmHg] 112/7 2mmHg (08/11/23 10:47 PM) Mean Arterial Pressure, Cuff [65-140 mmH g] 85 mmHg (08/11/23 10:47 PM) Weight 42 kg (08/11/23 10:47 PM) Weight Dosing 42.000 kg (08/11/23 10:47 PM) Height 162 cm (08/11/23 10:47 PM) Body Mass Index 16 kg/m2 (08/11/23 10:47 PM) Body Mass Index Percentile 0.17 1 (08/11/23 10:47 PM) Height/Length Percentile 41.98 2 (08/11/23 10:47 PM) Weight Percentile 0.56 3 (08/11/23 10:47 PM) 1Result Comment: ^~:!Percentile Source -[facility] 2Result Comment: ^~:!Percentile Source -CDC 3Result Comment: ^~:!Percentile Source -[facility] Social History Social History Type Response Tobacco Never tobacco user, smokeless tobacco daily Tobacco Use:. Sex Female Hospital Discharge Instructions Patient Education 08/11/2023 21:52:26 Upper Respiratory Infection, Adult Upper Respiratory Infection, Adult An upper respiratory infection (URI) is a common viral infection of the nose, throat, and upper airpassages that lead to the lungs. The most common type of URI is the common cold. URIs usually get better on their own, without medical treatment. What are the causes? A URI is caused by a virus. You may catch a virus by: ??? Breathing in droplets from an infected person's cough or sneeze. ??? Touching something that has been exposed to the virus (is contaminated) and then touching your mouth, nose, or eyes. What increases the risk? You are more likely to get a URI if: ??? You are very young or very old. ??? You have close contact with others, such as at work, school, or a health care facility. ??? You smoke. ??? You have long-term (chronic) heart or lung disease. ??? You have a weakened disease-fighting system (immune system). ??? You have nasal allergies or asthma. ??? You are experiencing a lot of stress. ??? You have poor nutrition. What are the signs or symptoms? A URI usually involves some of the following symptoms: ??? Runny or stuffy (congested) nose. ??? Cough. ??? Sneezing. ??? Sore throat. ??? Headache. ??? Fatigue. ??? Fever. ??? Loss of appetite. ??? Pain in your forehead, behind your eyes, and over your cheekbones (sinus pain). ??? Muscle aches. ??? Redness or irritation of the eyes. ??? Pressure in the ears or face. How is this diagnosed? This condition may be diagnosed based on your medical history and symptoms, and a physical exam. Your health care provider may use a swab to take a mucus sample from your nose (nasal swab). This sample can be tested to determine what virus is causing the illness. How is this treated? URIs usually get better on their own within 7???10 days. Medicines cannot cure URIs, but your health care provider may recommend certain medicines to help relieve symptoms, such as: ??? Otjk-qyx-gcuygbi cold medicines. ??? Cough suppressants. Coughing is a type of defense against infection that helps to clear the respiratory system, so take these medicines only as recommended by your health care provider. ??? Fever-reducing medicines. Follow these instructions at home: Activity ??? Rest as needed. ??? If you have a fever, stay home from work or school until your fever is gone or until your health care provider says your URI cannot spread to other people (is no longer contagious). Your health care provider may have you wear a face mask to prevent your infection from spreading. Relieving symptoms ??? Gargle with a mixture of salt and water 3???4 times a day or as needed. To make salt water, completely dissolve ?1 tsp (3???6 g) of salt in 1 cup (237 mL) of warm water. ??? Use a cool-mist humidifier to add moisture to the air. This can help you breathe more easily. Eating and drinking ??? Drink enough fluid to keep your urine pale yellow. ??? Eat soups and other clear broths. General instructions ??? Take igjd-toi-kwnzddn and prescription medicines only as told by your health care provider. These include cold medicines, fever reducers, and cough suppressants. ??? Do not use any products that contain nicotine or tobacco. These products include cigarettes, chewing tobacco, and vaping devices, such as e-cigarettes. If you need help quitting, ask your health care provider. ??? Stay away from secondhand smoke. ??? Stay up to date on all immunizations, including the yearly (annual) flu vaccine. ??? Keep all follow-up visits. This is important. How to prevent the spread of infection to others URIs can be contagious. To prevent the infection from spreading: ??? Wash your hands with soap and water for at least 20 seconds. If soap and water are not available, use hand coal washer. ??? Avoid touching your mouth, face, eyes, or nose. ??? Cough or sneeze into a tissue or your sleeve or elbow instead of into your hand or into the air. Contact a health care provider if: ??? You are getting worse instead of better. ??? You have a fever or chills. ??? Your mucus is brown or red. ??? You have yellow or brown discharge coming from your nose. ??? You have pain in your face, especially when you bend forward. ??? You have swollen neck glands. ??? You have pain while swallowing. ??? You have white areas in the back of your throat. Get help right away if: ??? You have shortness of breath that gets worse. ??? You have severe or persistent: ??? Headache. ??? Ear pain. ??? Sinus pain. ??? Chest pain. ??? You have chronic lung disease along with any of the following: ??? Making high-pitched whistling sounds when you breathe, most often when you breathe out (wheezing). ??? Prolonged cough (more than 14 days). ??? Coughing up blood. ??? A change in your usual mucus. ??? You have a stiff neck. ??? You have changes in your: ??? Vision. ??? Hearing. ??? Thinking. ??? Mood. These symptoms may be an emergency. Get help right away. Call 911. ??? Do not wait to see if the symptoms will go away. ??? Do not drive yourself to the hospital. Summary ??? An upper respiratory infection (URI) is a common infection of the nose, throat, and upper air passages that lead to the lungs. ??? A URI is caused by a virus. ??? URIs usually get better on their own within 7???10 days. ??? Medicines cannot cure URIs, but your health care provider may recommend certain medicines to help relieve symptoms. This information is not intended to replace advice given to you by your health care provider. Make sure you discuss any questions you have with your health care provider. Document Revised: 08/29/2021 Document Reviewed: 08/29/2021 [employer] Patient Education ?? 2022 [employer]. 08/11/2023 21:52:23 Bacterial Conjunctivitis, Adult Bacterial Conjunctivitis, Adult Bacterial conjunctivitis is an infection of the clear membrane that covers the white part of the eye and the inner surface of the eyelid (conjunctiva). When the blood vessels in the conjunctiva become inflamed, the eye becomes red or pink. The eye often feels irritated or itchy. Bacterial conjunctivitis spreads easily from person to person (is contagious). It also spreads easily from one eye to the other eye. What are the causes? This condition is caused by bacteria. You may get the infection if you come into close contact with: ??? A person who is infected with the bacteria. ??? Items that are contaminated with the bacteria, such as a face towel, contact lens solution, or eye makeup. What increases the risk? You are more likely to develop this condition if: ??? You are exposed to other people who have the infection. ??? You wear contact lenses. ??? You have a sinus infection. ??? You have had a recent eye injury or surgery. ??? You have a weak body defense system (immune system). ??? You have a medical condition that causes dry eyes. What are the signs or symptoms? Symptoms of this condition include: ??? Thick, yellowish discharge from the eye. This may turn into a crust on the eyelid overnight andcause your eyelids to stick together. ??? Tearing or watery eyes. ??? Itchy eyes. ??? Burning feeling in your eyes. ??? Eye redness. ??? Swollen eyelids. ??? Blurred vision. How is this diagnosed? This condition is diagnosed based on your symptoms and medical history. Your health care provider may also take a sample of discharge from your eye to find the cause of your infection. How is this treated? This condition may be treated with: ??? Antibiotic eye drops or ointment to clear the infection more quickly and prevent the spread of infection to others. ??? Antibiotic medicines taken by mouth (orally) to treat infections that do not respond to drops or ointments or that last longer than 10 days. ??? Cool, wet cloths (cool compresses) placed on the eyes. ??? Artificial tears applied 2???6 times a day. Follow these instructions at home: Medicines ??? Take or apply your antibiotic medicine as told by your health care provider. Do not stop using the antibiotic, even if your condition improves, unless directed by your health care provider. ??? Take or apply hdpx-imp-rbshoss and prescription medicines only as told by your health care provider. ??? Be very careful to avoid touching the edge of your eyelid with the eye-drop bottle or the ointment tube when you apply medicines to the affected eye. This will keep you from spreading the infection to your other eye or to other people. Managing discomfort ??? Gently wipe away any drainage from your eye with a warm, wet washcloth or a cotton ball. ??? Apply a clean, cool compress to your eye for 10???20 minutes, 3???4 times a day. General instructions ??? Do not wear contact lenses until the inflammation is gone and your health care provider says itis safe to wear them again. Ask your health care provider how to sterilize or replace your contact lenses before you use them again. Wear glasses until you can resume wearing contact lenses. ??? Avoid wearing eye makeup until the inflammation is gone. Throw away any old eye cosmetics that may be contaminated. ??? Change or wash your pillowcase every day. ??? Do not share towels or washcloths. This may spread the infection. ??? Wash your hands often with soap and water for at least 20 seconds and especially before touching your face or eyes. Use paper towels to dry your hands. ??? Avoid touching or rubbing your eyes. ??? Do not drive or use heavy machinery if your vision is blurred. Contact a health care provider if: ??? You have a fever. ??? Your symptoms do not get better after 10 days. Get help right away if: ??? You have a fever and your symptoms suddenly get worse. ??? You have severe pain when you move your eye. ??? You have facial pain, redness, or swelling. ??? You have a sudden loss of vision. Summary ??? Bacterial conjunctivitis is an infection of the clear membrane that covers the white part of the eye and the inner surface of the eyelid (conjunctiva). ??? Bacterial conjunctivitis spreads easily from eye to eye and from person to person (is contagious). ??? Wash your hands often with soap and water for at least 20 seconds and especially before touching your face or eyes. Use paper towels to dry your hands. ??? Take or apply your antibiotic medicine as told by your health care provider. Do not stop using the antibiotic even if your condition improves. ??? Contact a health care provider if you have a fever or if your symptoms do not get better after 10 days. Get help right away if you have a sudden loss of vision. This information is not intended to replace advice given to you by your health care provider. Make sure you discuss any questions you have with your health care provider. Document Revised: 05/09/2021 Document Reviewed: 05/09/2021 [employer] Patient Education ?? 2022 [employer]. Follow Up Care 08/11/2023 22:27:23 With:primary care physician Address: When:3 to 5 days Physician Emergency department Note * Nori Crum MD: PERFORM Event Display: ED Note Physician Authored Date: [id number] JOSE ROBERTO BALBUENA :2005 Age:18 years Sex:Female Visit Date:08/11/2023 Primary Care Physician: MELVA WATTS APRN Basic Information Time Seen: Nori Crum MD / 08/11/2023 22:42 Chief Complaint Cold like symptoms since , worsening to eye pressure and discharge, sinus pressure Visual acuity R-20/25 L-20/25 B-20/25 History Of Present Illness: This patient is a 18-year-old female presents emergency department today for evaluation of left eyepain.?? The patient states that she has had approximately 1 week of upper respiratory symptoms including nasal congestion and cough.?? Patient states over the last few days she has started to get some eye discharge from the left eye.?? She feels as though the surface of the eye feels like there is a film over it making it more difficult for her to see.?? She feels as though it is uncomfortable topress on the eye.?? She is not had any fevers or chills.?? No facial swelling.?? She has been usingMotrin and Tylenol at home without any improvement.?? She has also tried bete-ram-nwdixjj eyedrops without relief. Review of Systems: Review of systems as stated above Physical Exam Vitals & Measurements T:??36.6?C ??(Temporal Artery)?? HR:??97??(Monitored)?? RR:??20?? BP:??112/72?? SpO2:??100%?? HT:??162??cm?? WT:??42??kg?? BMI:??16?? Pain Score:??5?? O2 Therapy:??Room air?? GENERAL:??Well appearing in no acute distress SKIN:??No visible facial rash or cyanosis HENT:??Normocephalic, atraumatic. ??No significant??tenderness to palpation over the sinuses.?? There is no proptosis of the eye. ??There is some??yellowish crusting at the left eyelash.?? Some mild conjunctival erythema.?? Fluorescein stain there is no evidence of corneal abrasion or lesions.?? There is no facial rash.?? Vision on both eyes and together was 20/25 PULMONARY:??The patient is speaking in full sentences. The breathing is nonlabored. They do not appear tachypneic or air hungry. NEUROLOGIC:??Normal speech. Oriented. PSYCHIATRIC:??Normal mood and affect Medical Decision Making: Patient is a??18-year-old female presents today for left eye pain. ??She has what appears to be developing conjunctivitis associated with a viral URI.?? On fluorescein stain there are no dendritic lesions or??corneal abrasions.?? I see no evidence of proptosis of the eye or any significant tenderness over the sinuses or any facial swelling to be concerned about??retrobulbar??abscess or??orbital cellulitis. ??There is no significant periorbital edema.?? Patient will be started on??erythromycin ointment here in the emergency department. Procedure No Qualifying Data Assessment/Plan 1.??Conjunctivitis of left eye??H10.9 2.??Viral URI??J06.9 Orders: erythromycin ophthalmic, 1 alice, Eye-Left, Ointment, QID, First Dose: 08/12/23 9:00:00 EDT Discharge Patient, 08/11/23 22:53:00 EDT, Home Independently Patient Education Upper Respiratory Infection, Adult Bacterial Conjunctivitis, Adult Follow Up With When Contact Information primary care physician Within 3 to 5 days Additional Instructions: Medication Reconciliation Unchanged albuterol (Albuterol (Eqv-ProAir HFA) 90 mcg/inh inhalation aerosol)2 Puffs Inhale (breathe in) every 6 hours for 30 Days. Refills: 0. ?? fosfomycin (Fosfomycin Tromethamine 3 g oral granule for reconstitution)1 Each Oral (given by mouth) once. Refills: 0. ?? medroxyPROGESTERone (Depo-Provera Contraceptive 150 mg/mL intramuscular suspension)1 Unknown. ?? ondansetron (ondansetron 4 mg oral tablet, disintegrating)1 tab Oral (given by mouth) 3 times a day. Refills: 0. ?? penicillin V potassium (penicillin V potassium 250 mg/5 mL oral liquid)10 Milliliters Oral (given by mouth) every 8 hours for 10 Days. Refills: 0. Problem List/Past Medical History Ongoing Amenorrhea Anxiety Decrease in appetite Epigastric pain Lipoma of abdominal wall Loss of taste Major depression, single episode Menometrorrhagia Nausea Patient encounter status Tonsillitis Historical No qualifying data Allergies No Known Allergies No Known Medication Allergies Social History Alcohol Never Electronic Cigarette/Vaping Electronic Cigarette Use: Use, within last 90 days. Use per Day: 1-25 Inhales/day. Tobacco Never tobacco user, smokeless tobacco daily Tobacco Use:. Electronically Signed on 08/11/2023 22:53 EDT Nori Crum MD Emergency department Discharge instructions * Nori Crum MD: PERFORM Event Display: ED Discharge Information Authored Date: [id number] JOSE ROBERTO BALBUENA :2005 Age:18 years Sex:Female Visit Date:08/11/2023 Primary Care Physician: MELVA WATTS APRN Discharge Instructions We would like to thank you for allowing us to assist you with your healthcare needs. The following includes patient education materials and information regarding your injury/illness. Diagnosis from Today's Visit Conjunctivitis of left eye Viral URI Allergies No Known Allergies No Known Medication Allergies What to Do Next You Need to Schedule the Following Appointments Follow Up with??primary care physician When:??Within 3 to 5 days Upcoming Scheduled Appointments Friday 3:00 PM EDT ?? Where: [facility] Status: Confirmed You were treated today on an emergency [...] cough and congestion Duration: 30 Days Unchanged fosfomycin (Fosfomycin Tromethamine 3 g oral granule for reconstitution) 1 Each Oral (given by mouth) Once Unchanged medroxyPROGESTERone (Depo-Provera Contraceptive 150 mg/ mL intramuscular suspension) 1 Unknown ?? Unchanged ondansetron (ondansetron 4 mg oral tablet, disintegrating) 1 tab Oral (given by mouth) 3 times a day Influenza-like illness Unchanged penicillin V potassium (penicillin V potassium 250 mg/ 5 mL oral liquid) 10 Milliliters Oral (given by mouth) Every 8 hours Pharyngitis Duration: 10 Days Education Materials Upper Respiratory Infection, Adult An upper respiratory infection (URI) is a common viral infection of the nose, throat, and upper airpassages that lead to the lungs. The most common type of URI is the common cold. URIs usually get better on their own, without medical treatment. What are the causes? A URI is caused by a virus. You may catch a virus by: ? Breathing in droplets from an infected person's cough or sneeze. ? Touching something that has been exposed to the virus (is contaminated) and then touching your mouth, nose, or eyes. What increases the risk? You are more likely to get a URI if: ? You are very young or very old. ? You have close contact with others, such as at work, school, or a health care facility. ? You smoke. ? You have long-term (chronic) heart or lung disease. ? You have a weakened disease-fighting system (immune system). ? You have nasal allergies or asthma. ? You are experiencing a lot of stress. ? You have poor nutrition. What are the signs or symptoms? A URI usually involves some of the following symptoms: ? Runny or stuffy (congested) nose. ? Cough. ? Sneezing. ? Sore throat. ? Headache. ? Fatigue. ? Fever. ? Loss of appetite. ? Pain in your forehead, behind your eyes, and over your cheekbones (sinus pain). ? Muscle aches. ? Redness or irritation of the eyes. ? Pressure in the ears or face. How is this diagnosed? This condition may be diagnosed based on your medical history and symptoms, and a physical exam. Your health care provider may use a swab to take a mucus sample from your nose (nasal swab). This sample can be tested to determine what virus is causing the illness. How is this treated? URIs usually get better on their own within 7???10 days. Medicines cannot cure URIs, but your health care provider may recommend certain medicines to help relieve symptoms, such as: ? Shly-obq-kocwxvf cold medicines. ? Cough suppressants. Coughing is a type of defense against infection that helps to clear the respiratory system, so take these medicines only as recommended by your health care provider. ? Fever-reducing medicines. Follow these instructions at home: Activity ? Rest as needed. ? If you have a fever, stay home from work or school until your fever is gone or until your health care provider says your URI cannot spread to other people (is no longer contagious). Your health care provider may have you wear a face mask to prevent your infection from spreading. Relieving symptoms ? Gargle with a mixture of salt and water 3???4 times a day or as needed. To make salt water, completely dissolve ?1 tsp (3???6 g) of salt in 1 cup (237 mL) of warm water. ? Use a cool-mist humidifier to add moisture to the air. This can help you breathe more easily. Eating and drinking ? Drink enough fluid to keep your urine pale yellow. ? Eat soups and other clear broths. General instructions ? Take rori-fij-pggpxth and prescription medicines only as told by your health care provider. These include cold medicines, fever reducers, and cough suppressants. ? Do not use any products that contain nicotine or tobacco. These products include cigarettes, chewing tobacco, and vaping devices, such as e-cigarettes. If you need help quitting, ask your health careprovider. ? Stay away from secondhand smoke. ? Stay up to date on all immunizations, including the yearly (annual) flu vaccine. ? Keep all follow-up visits. This is important. How to prevent the spread of infection to others URIs can be contagious. To prevent the infection from spreading: ? Wash your hands with soap and water for at least 20 seconds. If soap and water are not available, use hand coal washer. ? Avoid touching your mouth, face, eyes, or nose. ? Cough or sneeze into a tissue or your sleeve or elbow instead of into your hand or into the air. Contact a health care provider if: ? You are getting worse instead of better. ? You have a fever or chills. ? Your mucus is brown or red. ? You have yellow or brown discharge coming from your nose. ? You have pain in your face, especially when you bend forward. ? You have swollen neck glands. ? You have pain while swallowing. ? You have white areas in the back of your throat. Get help right away if: ? You have shortness of breath that gets worse. ? You have severe or persistent: ? Headache. ? Ear pain. ? Sinus pain. ? Chest pain. ? You have chronic lung disease along with any of the following: ? Making high-pitched whistling sounds when you breathe, most often when you breathe out (wheezing). ? Prolonged cough (more than 14 days). ? Coughing up blood. ? A change in your usual mucus. ? You have a stiff neck. ? You have changes in your: ? Vision. ? Hearing. ? Thinking. ? Mood. These symptoms may be an emergency. Get help right away. Call 911. ? Do not wait to see if the symptoms will go away. ? Do not drive yourself to the hospital. Summary ? An upper respiratory infection (URI) is a common infection of the nose, throat, and upper air passages that lead to the lungs. ? A URI is caused by a virus. ? URIs usually get better on their own within 7???10 days. ? Medicines cannot cure URIs, but your health care provider may recommend certain medicines to help relieve symptoms. This information is not intended to replace advice given to you by your health care provider. Make sure you discuss any questions you have with your health care provider. Document Revised: 08/29/2021 Document Reviewed: 08/29/2021 [employer] Patient Education ?? 2022 [employer] Bacterial Conjunctivitis, Adult Bacterial conjunctivitis is an infection of the clear membrane that covers the white part of the eye and the inner surface of the eyelid (conjunctiva). When the blood vessels in the conjunctiva become inflamed, the eye becomes red or pink. The eye often feels irritated or itchy. Bacterial conjunctivitis spreads easily from person to person (is contagious). It also spreads easily from one eye to the other eye. What are the causes? This condition is caused by bacteria. You may get the infection if you come into close contact with: ? A person who is infected with the bacteria. ? Items that are contaminated with the bacteria, such as a face towel, contact lens solution, or eye makeup. What increases the risk? You are more likely to develop this condition if: ? You are exposed to other people who have the infection. ? You wear contact lenses. ? You have a sinus infection. ? You have had a recent eye injury or surgery. ? You have a weak body defense system (immune system). ? You have a medical condition that causes dry eyes. What are the signs or symptoms? Symptoms of this condition include: ? Thick, yellowish discharge from the eye. This may turn into a crust on the eyelid overnight and cause your eyelids to stick together. ? Tearing or watery eyes. ? Itchy eyes. ? Burning feeling in your eyes. ? Eye redness. ? Swollen eyelids. ? Blurred vision. How is this diagnosed? This condition is diagnosed based on your symptoms and medical history. Your health care provider may also take a sample of discharge from your eye to find the cause of your infection. How is this treated? This condition may be treated with: ? Antibiotic eye drops or ointment to clear the infection more quickly and prevent the spread of infection to others. ? Antibiotic medicines taken by mouth (orally) to treat infections that do not respond to drops or ointments or that last longer than 10 days. ? Cool, wet cloths (cool compresses) placed on the eyes. ? Artificial tears applied 2???6 times a day. Follow these instructions at home: Medicines ? Take or apply your antibiotic medicine as told by your health care provider. Do not stop using the antibiotic, even if your condition improves, unless directed by your health care provider. ? Take or apply ikkv-jbq-jxggjaa and prescription medicines only as told by your health care provider. ? Be very careful to avoid touching the edge of your eyelid with the eye-drop bottle or the ointment tube when you apply medicines to the affected eye. This will keep you from spreading the infection to your other eye or to other people. Managing discomfort ? Gently wipe away any drainage from your eye with a warm, wet washcloth or a cotton ball. ? Apply a clean, cool compress to your eye for 10???20 minutes, 3???4 times a day. General instructions ? Do not wear contact lenses until the inflammation is gone and your health care provider says it is safe to wear them again. Ask your health care provider how to sterilize or replace your contact lenses before you use them again. Wear glasses until you can resume wearing contact lenses. ? Avoid wearing eye makeup until the inflammation is gone. Throw away any old eye cosmetics that may be contaminated. ? Change or wash your pillowcase every day. ? Do not share towels or washcloths. This may spread the infection. ? Wash your hands often with soap and water for at least 20 seconds and especially before touching your face or eyes. Use paper towels to dry your hands. ? Avoid touching or rubbing your eyes. ? Do not drive or use heavy machinery if your vision is blurred. Contact a health care provider if: ? You have a fever. ? Your symptoms do not get better after 10 days. Get help right away if: ? You have a fever and your symptoms suddenly get worse. ? You have severe pain when you move your eye. ? You have facial pain, redness, or swelling. ? You have a sudden loss of vision. Summary ? Bacterial conjunctivitis is an infection of the clear membrane that covers the white part of the eye and the inner surface of the eyelid (conjunctiva). ? Bacterial conjunctivitis spreads easily from eye to eye and from person to person (is contagious). ? Wash your hands often with soap and water for at least 20 seconds and especially before touching your face or eyes. Use paper towels to dry your hands. ? Take or apply your antibiotic medicine as told by your health care provider. Do not stop using the antibiotic even if your condition improves. ? Contact a health care provider if you have a fever or if your symptoms do not get better after 10 days. Get help right away if you have a sudden loss of vision. This information is not intended to replace advice given to you by your health care provider. Make sure you discuss any questions you have with your health care provider. Document Revised: 05/09/2021 Document Reviewed: 05/09/2021 Elsevier Patient Education ?? 2022 [employer]. Patient/Hydrotherapist Signature Patient Name:JOSE ROBERTO BALBUENA I have received this information and my questions have been answered. Patient/Hydrotherapist Name: Patient/Hydrotherapist Signature: Relationship to Patient: Witness Name/Signature: Date: Electronically Signed on: 08/11/2023 22:52 EDTSigned by:AF Patient Care team information Care Team Personnel Name: MELVA WATTS APRN Position: No Access Member Role: Primary Care Physician Address: Address: [facility] [address] [facility], [place] [address] Name: Krystal Kurtz APRN Position: Physician Member Role: Nurse Practitioner Address: Address: [address] [place] [address] [address] [place] [address]- Care Team Related Persons Name: FAIZA BALBUENA
--- OUTSIDE RECORDS SUMMARY | 2024-02-03 12:35 | XMS_ITS | Continuity of Care Document ---
Author Organization [facility] Address [address] [place] [address] Care Team Providers Care Sales Coordinator Name Role Phone MELVA WATTS APRN Primary Care Physician [phone] Encounter [facility] NBR [id number] Date(s): 06/10/23 - 06/10/23 [facility] [address] [place] [address]- Discharge Disposition: Home or Self Care Attending [...] hr, # 8.5 g, 0 Refill(s), Pharmacy: [facility] #[id number], 162, cm, 02/25/23 11:58:00 EST, Height, 42, kg, 03/16/23 18:01:00 EST, Weight Dosing Start Date: 03/17/23 Stop Date: 04/16/23 Status: Ordered Depo-Provera Contraceptive 150 mg/mL intramuscular suspension 1 Unknown, 0 Refill(s) Start Date: 11/29/21 Status: Ordered fosfomycin 3 g oral granule for reconstitution 3 g = 1 EA, Oral, Once, # 1 packets, 0 Refill(s), Pharmacy: [facility] #[id number], 162, cm, 08/15/22 18:08:00 EDT, Height/Length Dosing, 42.64, kg, 01/15/23 20:27:00 EST, Weight Dosing Start Date: 01/15/23 Status: Ordered fosfomycin 3 g oral granule for reconstitution 3 g = 1 EA, Oral, Once, # 1 packets, 0 Refill(s), Pharmacy: [facility] #[id number], 162.56, cm, 04/12/23 8:47:00 EST, Height, 41.73, kg, 04/22/23 17:44:00 EDT, Weight Dosing Start Date: 04/22/23 Status: Ordered fosfomycin 3 g oral granule for reconstitution 3 g = 1 EA, Oral, Once, # 1 packets, 0 Refill(s), Pharmacy: [facility] #[id number], 162.56, cm, 04/12/23 8:47:00 EST, Height, 41.73, kg, 04/22/23 17:44:00 EDT, Weight Dosing Start Date: 04/22/23 Status: Ordered fosfomycin 3 g oral granule for reconstitution 3 g = 1 EA, Oral, Once, # 1 packets, 0 Refill(s), Pharmacy: [facility] #[id number], 162.56, cm, 04/12/23 8:47:00 EST, Height, 41.73, kg, 04/22/23 17:44:00 EDT, Weight Dosing Start Date: 04/22/23 Status: Ordered ondansetron 4 mg oral tablet, disintegrating 4 mg = 1 tab, Oral, TID, # 10 tab, 0 Refill(s), [facility][id number], 162, cm, 02/25/23 11:58:00 EST, Height, 40.8, kg, 02/25/23 12:04:00 EST, Weight Dosing Start Date: 02/25/23 Status: Ordered penicillin V potassium 250 mg/5 mL oral liquid 500 mg = 10 mL, Oral, every 8 hr, # 300 mL, 0 Refill(s), Pharmacy: [facility] #[id number], 162.56, cm, 04/12/23 8:47:00 EST, Height, 41.73, kg, 04/22/23 17:44:00 EDT, Weight Dosing Start Date: 05/26/23 Stop Date: 06/05/23 Status: Ordered Tessalon Perles 100 mg oral capsule 100 mg = 1 cap, Oral, TID, PRN as needed for cough, # 21 cap, 0 Refill(s), [facility]acy: [facility] #[id number], 162, cm, 02/25/23 11:58:00 EST, Height, 42, [...] Confirmed Active Results Laboratory List Name Date Chlamydia trachomatis and Neisseria gono rrhoeae ([facility]) 06/10/23 Most recent to oldest [Reference Range]: 1 Chlamydia trachomatis DNA -[facility] [No t Detected] Not Detected (06/10/23 7:48 PM) Neisseria gonorrhoeae DNA -[facility] [No t Detected] Not Detected (06/10/23 7:48 PM) Social History Social History Type Response Tobacco Never tobacco user, smokeless tobacco daily Tobacco Use:. Sex Female Patient Care team information Care Team Personnel Name: MELVA WATTS APRN Position: No Access Member Role: Primary Care Physician Address: Address: [address] [address] Name: Krystal Kurtz APRN Position: Physician Member Role: Nurse Practitioner Address: Address: [address] [place] [address] [address] [place], [place] [address] Care Team Related Persons Name: FAIZA BALBUENA Name: ALVARO BALBUENA Address: [address] [place], [place] [id number] Name: CAROLINA BALBUENA Address: [facility]
--- OUTSIDE RECORDS SUMMARY | 2024-02-03 12:35 | XMS_ITS | Continuity of Care Document ---
Author Organization [facility] Address [address] [place] [address] Care Team Providers Care Theology Teacher Name Role Phone JAMES ELIZABETH Primary Care Physician Encounter [facility] NBR [id number] Date(s): 01/06/24 - 01/06/24 [facility] [address] [place] [address] us Encounter Diagnosis Pharyngitis(Discharge Diagnosis) - 01/06/24 Acute pharyngitis, unspecified(Final) - Discharge Disposition: Home or Self Care Attending Physician: Ayla Hopper APRN Allergies, Adverse Reactions, Alerts Substance Criticality Severity Reaction Reaction Severity Status penicillin High criticality Moderate Rash Ac tive Assessment and Plan Extracted from: Title:[facility] note Author:Ayla Hopper APRN Date :01/06/24 1.??Pharyngitis??J02.9 Orders: Zithromax Z-Nicholas 250 mg oral tablet, 1 packets, Oral, Daily, Take 2 tablets on day 1 and 1 tablet days 2 through 5 with a quantity of 6., # 6 tab, 0 Refill(s), Pharmacy: [facility] #[id number], 162, cm, 12/15/23 22:27:00 EST, Height, 45, kg, 12/15/23 22:29:00 EST, Weight Dosing Medrol Dosepak 4 mg oral tablet, 1 packets, Oral, Daily, as directed on package labeling, # 21 tab, 0 Refill(s), Pharmacy: [facility] #[id number], 162, cm, 12/15/23 22:27:00 EST, Height, 45, kg, 12/15/23 22:29:00 EST, Weight Dosing Future Scheduled Tests Radiology* US Transvaginal Non-OB 06/28/23 * CT [...] 0 Refill(s) Start Date: 10/28/23 Status: Ordered Medrol Dosepak 4 mg oral tablet 1 packets, Oral, Daily, as directed on package labeling, # 21 tab, 0 Refill(s), [facility]: [facility][id number], 162, cm, 12/15/23 22:27:00 EST, Height, 45, kg, 12/15/23 22:29:00 EST, Weight Dosing Start Date: 01/06/24 Stop Date: 01/12/24 Status: Ordered metroNIDAZOLE 0.75% vaginal gel with applicator INSERT 1 APPLICATORFUL VAGINALLY TWICE DAILY FOR 5 DAYS Start Date: 12/01/23 Status: Ordered Miconazole 7 vaginal cream with applicator 1 alice, Vaginal, every night at bedtime, # 45 g, 0 Refill(s), [facility]: [facility] #[id number], 162, cm, 12/15/23 22:27:00 EST, Height, 45, kg, 12/15/23 22:29:00 EST, Weight Dosing Start Date: 12/24/23 Status: Ordered ondansetron 4 mg oral tablet, disintegrating 4 mg = 1 tab, Oral, TID, # 10 tab, 0 Refill(s), [facility]acy: [facility] #[id number], 162, cm, 02/25/23 11:58:00 EST, Height, 40.8, kg, 02/25/23 12:04:00 EST, Weight Dosing Start Date: 02/25/23 Status: Ordered Zithromax Z-Nicholas 250 mg oral tablet 1 packets, Oral, Daily, Take 2 tablets on day 1 and 1 tablet days 2 through 5 with a quantity of 6., # 6 tab, 0 Refill(s), [facility]: [facility] #[id number], 162, cm, 12/15/23 22:27:00 EST, Height, 45, kg, 12/15/23 22:29:00 EST, Weight Dosing Start Date: 01/06/24 Stop Date: 01/11/24 Status: Ordered Problem List Condition Confirmation Course [...] Range]: 1 Temperature Oral [35.8-37.3 Deg C] 36.9 Deg C (01/06/24 5:46 PM) Peripheral Pulse Rate [60-100 bpm] 114 b pm *HI* (01/06/24 5:46 PM) Respiratory Rate [12-24 br/min] 18 br/mi n (01/06/24 5:46 PM) Blood Pressure [90-120/60-80 mmHg] 111/5 5mmHg (01/06/24 5:46 PM) Mean Arterial Pressure, Cuff [65-140 mmH g] 74 mmHg (01/06/24 5:46 PM) Social History Social History Type Response Tobacco Never tobacco user, smokeless tobacco daily Tobacco Use:. Sex Female Sex Representation Female (finding) Physician Outpatient Note * Ayla Hopper, MATERIALS HANDLING COORDINATOR: PERFORM Event Display: Office Clinic Note Physician Authored Date: [id number] JOSE ROBERTO BALBUENA :2005 Age:18 years Sex:Female Visit Date:01/06/2024 Primary Care Physician: JAMES ELIZABETH Chief Complaint Pt states on and off strep for past couple months. hurts to chew, swollow, talk on right side and has a taste like blood when I swallow. been going on for 2 days. History of Present Illness Patient is a 18-year-old female presents today with a chief complaint of sore throat. ??She reportsthat she??has chronically??enlarged tonsils, and pharyngitis, has had numerous strep infections over the past year. ??She is evaluated by ENT??and is supposed to be getting her tonsils out, although she states that she has not heard back from scheduling. ??She states over the past few days she has noted increased pain, swelling is becoming more difficult??no fever Review of Systems See HPI Physical Exam Vitals & Measurements T:??36.9?C ??(Oral)?? HR:??114??(Peripheral)?? RR:??18?? BP:??111/55?? SpO2:??99%?? Pain Score:??8?? Skin: No concerning lesions in examined areas. Head: Normal cephalic without trauma or injury. Neck: Supple, nontender, normal range of motion Eye: Pupils reactive. ??Conjunctiva clear. Sclera nonicteric. ??No swelling, obvious foreign bodies. ??Extraocular movement intact. ENT ear: Normal external, canal clear, TMs normal bilaterally. ??Nose: No discharge, normal mucosa,no swelling. ??Sinuses: Nontender to percussion. ??Oropharynx: Normal external, mucosal without mass, lesions, ulcerations. ??Bilateral 2+??tonsillar enlargement, positive??erythema,?? no??uvula deviation Cardiovascular: Regular rate and rhythm. ??No murmur, rubs, or gallops. Respiratory: Clear to auscultation bilaterally. ??No wheezes, rales, rhonchi. Chest: No deformity. ??Nontender, normal inspiration and expiration. ?? Medical Decision Making: Was evaluated for??increased tonsillar swelling and pain.?? Patient does request no strep testing as she states gag reflex does cause??and trigger cyclic vomiting. ??Given her past history and the??exam probable strep pharyngitis??will start her on a Z-Nicholas and I provided her steroids for inflammation. ??I will send to ENT??a note to see if they can attempt tonodule her as they had planned on Assessment/Plan 1.??Pharyngitis??J02.9 Orders: Zithromax Z-Nicholas 250 mg oral tablet, 1 packets, Oral, Daily, Take 2 tablets on day 1 and 1 tablet days 2 through 5 with a quantity of 6., # 6 tab, 0 Refill(s), Pharmacy: [facility] #[id number], 162, cm, 12/15/23 22:27:00 EST, Height, 45, kg, 12/15/23 22:29:00 EST, Weight Dosing Medrol Dosepak 4 mg oral tablet, 1 packets, Oral, Daily, as directed on package labeling, # 21 tab,0 Refill(s), Pharmacy: [facility] #[id number], 162, cm, 12/15/23 22:27:00 EST, Height, 45, kg, 12/15/23 22:29:00 EST, Weight Dosing Problem List/Past Medical History Ongoing Amenorrhea Anxiety Decrease in appetite Epigastric pain Lipoma of abdominal wall Loss of taste Major depression, single episode Menometrorrhagia Nausea Patient encounter status Tonsillitis Historical No qualifying data Medications busPIRone 5 mg oral tablet Depo-Provera Contraceptive 150 mg/mL intramuscular suspension FLUoxetine hydrOXYzine hyoscyamine Medrol Dosepak 4 mg oral tablet, 1 packets, Oral, Daily metroNIDAZOLE 0.75% vaginal gel with applicator Miconazole 7 vaginal cream with applicator, 1 alice, Vaginal, every night at bedtime ondansetron 4 mg oral tablet, disintegrating, 4 mg= 1 tab, Oral, TID Zithromax Z-Nicholas 250 mg oral tablet, 1 packets, Oral, Daily Allergies penicillin??(Rash) Social History Alcohol Never Electronic [...] Comments : Unit: Unknown Electronically Signed on 01/06/2024 18:42 EST Ayla Hopper APRN Outpatient Summary note * Ayla Hopper APRN: PERFORM Event Display: Ambulatory Patient Summary Authored Date: [id number] JOSE ROBERTO BALBUENA :2005 Age:18 years Sex:Female Visit Date:01/06/2024 Primary Care Physician: JAMES ELIZABETH Ambulatory Visit Instructions We would like to thank you for allowing us to assist you with your healthcare needs. The following includes patient education materials and information regarding your injury/illness. Medications What How Much When Why Instructions New azithromycin (Zithromax Z-Nicholas 250 mg oral tablet) 1 packets Oral (given by mouth) Every day Duration: 5 Days Take 2 tablets on day 1 and 1 tablet days 2 through 5 with a quantity of 6. ?? Pickup at [facility] #[id number] New methylPREDNISolone (Medrol Dosepak 4 mg oral tablet) 1 packets Oral (given by mouth) Every day Duration: 6 Days as directed on package labeling ?? Pickup at [facility] #[id number] Unchanged busPIRone (busPIRone 5 mg oral tablet) TAKE 1/ 2 TO 1 TABLET BY MOUTH UP TO THREE TIMES DAILY NEEDED ?? Unchanged FLUoxetine Unchanged hydrOXYzine Unchanged hyoscyamine Unchanged medroxyPROGESTERone (Depo-Provera Contraceptive 150 mg/ mL intramuscular suspension) 1 Unknown ?? Unchanged metroNIDAZOLE topical (metroNIDAZOLE 0.75% vaginal gel with applicator) INSERT 1 APPLICATORFUL VAGINALLY TWICE DAILY FOR 5 DAYS ?? Unchanged miconazole topical (Miconazole 7 vaginal cream with applicator) 1 Application Vaginal (in the vagina) Every night at bedtime Unchanged ondansetron (ondansetron 4 mg oral tablet, disintegrating) 1 tab Oral (given by mouth) 3 times a day Influenza-like illness Pharmacy Information [facility] #[id number]: [address], [place] [id number] [phone] Your Summary Your Diagnosis Pharyngitis Problems Ongoing - Any problem that you are currently receiving treatment for. Amenorrhea Anxiety Decrease in appetite Epigastric pain Lipoma of abdominal wall Loss of taste Major depression, single episode Menometrorrhagia Nausea Patient encounter status Tonsillitis Your Care Team Attending Physician - Ayla Hopper APRN Primary Care Physician - JAMES ELIZABETH Discharge Vitals Temperature??(Oral) 98.4 ??F (36.9 ??C) Heart Rate??(Peripheral) 114 Respiratory Rate?? 18 Blood Pressure?? 111/55?? SpO2?? 99% Allergies penicillin??(Rash) Electronically Signed on: 01/06/2024 18:12 ESTSigned by:DARRYL Patient Care team information Care Team Personnel Name: Krystal Kurtz APRN Position: Physician Member Role: Nurse Practitioner Address: [address] [facility] [address] [place] [address]- Name: JAMES ELIZABETH Position: No Access Member Role: Primary Care Physician Address: [facility] [address] [place] [address]- Care Team Related Persons Name: FAIZA BALBUENA Insurance Providers Guarantor name: JOSE ROBERTO DUNCANS Health Plan Information #: 1 Payer: MEDICAID [place] Member Number: [id number] Policy Number: NA Health Plan Information #: 2 Payer: [place] Member Number: [id number] Policy Number: NA Health Plan Information #: 3 Payer: [place] Member Number: [id number] Policy Number: NA
--- OUTSIDE RECORDS SUMMARY | 2024-02-03 12:35 | XMS_ITS | Continuity of Care Document ---
Author Organization [facility] Ambulatory Clinics Address [address] [place] [address] Care Team Providers Care Petrologist Name Role Phone MELVA WATTS APRN Primary Care Physician [phone] Encounter [facility] NBR [id number] Date(s): 08/09/23 - 08/09/23 [facility] Ambulatory Clinics [address] [place], [place] [address] Encounter Diagnosis Pharyngitis(Discharge Diagnosis) - 08/09/23 Discharge Disposition: Home or Self Care Attending Physician: KEREN Porter Allergies, Adverse Reactions, Alerts No Known Allergies Assessment and Plan Extracted from: Title:Office Visit Note Author:KEREN Porter Date:08/09/23 1.??Pharyngitis??J02.9 ??Patient with large tonsils, chronic tonsillitis with flare. ??She has very strong gag reflex would not like to be swabbed. ??At this time I am okay empirically treating her. ??She is aware of the risk benefits and alternatives. ??She will follow-up with ENT on Friday??to schedule an appointment for discussion around her chronic tonsillitis. ??Patient discharged good condition. Ordered: penicillin V potassium 250 mg/5 mL oral liquid, 500 mg = 10 mL, Oral, every 8 hr, # 300 mL, 0 Refill(s), Pharmacy: [facility] #[id number], 162.56, cm, 04/12/23 8:47:00 EST, Height, 42.64, kg, 08/09/23 10:35:00 EDT, Weight Dosing Office serv/reg sandeep/wkend/holiday [id number], 08/09/23 10:27:00 EDT, Pharyngitis ?? Future Appointments Future Scheduled Tests Laboratory* Urine Culture 11/24/23 * Chlamydia trachomatis and Neisseria gonorrhoeae (GeneXpert) [...] hr, # 8.5 g, 0 Refill(s), Pharmacy: [facility] #[id number], 162, cm, 02/25/23 11:58:00 EST, Height, 42, kg, 03/16/23 18:01:00 EST, Weight Dosing Start Date: 03/17/23 Stop Date: 04/16/23 Status: Ordered Depo-Provera Contraceptive 150 mg/mL intramuscular suspension 1 Unknown, 0 Refill(s) Start Date: 11/29/21 Status: Ordered Fosfomycin Tromethamine 3 g oral granule for reconstitution 3 g = 1 EA, Oral, Once, # 1 packets, 0 Refill(s), Pharmacy: [facility] #[id number], 162.56, cm, 04/12/23 8:47:00 EST, Height, 42.46, kg, 06/10/23 19:28:00 EDT, Weight Dosing Start Date: 07/03/23 Status: Ordered ondansetron 4 mg oral tablet, disintegrating 4 mg = 1 tab, Oral, TID, # 10 tab, 0 Refill(s), Pharmacy: [facility] #[id number], 162, cm, 02/25/23 11:58:00 EST, Height, 40.8, kg, 02/25/23 12:04:00 EST, Weight Dosing Start Date: 02/25/23 Status: Ordered penicillin V potassium 250 mg/5 mL oral liquid 500 mg = 10 mL, Oral, every 8 hr, # 300 mL, 0 Refill(s), Pharmacy: [facility] #[id number], 162.56, cm, 04/12/23 8:47:00 EST, Height, 42.64, kg, 08/09/23 10:35:00 EDT, Weight Dosing Start Date: 08/09/23 Stop Date: 08/19/23 Status: Ordered Problem List Condition Confirmation Course [...] Most recent to oldest [Reference Range]: 1 Peripheral Pulse Rate [60-100 bpm] 91 bp m (08/09/23 10:33 AM) Blood Pressure [90-140/60-90 mmHg] 119/6 5mmHg (08/09/23 10:33 AM) Mean Arterial Pressure, Cuff [65-140 mmH g] 83 mmHg (08/09/23 10:33 AM) Weight 42.64 kg (08/09/23 10:33 AM) Weight Measured (lbs) 94.005 lb (08/09/23 10:33 AM) Weight Dosing 42.640 kg (08/09/23 10:33 AM) Weight Percentile 0.86 1 (08/09/23 10:33 AM) 1Result Comment: ^~:!Percentile Source -[facility] Social History Social History Type Response Tobacco Never tobacco user, smokeless tobacco daily Tobacco Use:. Sex Female Physician Outpatient Note * KEREN Porter: PERFORM Event Display: Office Clinic Note Physician Authored Date: [id number] JOSE ROBERTO BALBUENA :2005 Age:18 years Sex:Female Visit Date:08/09/2023 Primary Care Physician: MELVA WATTS APRN Chief Complaint couple of days with sore thaot, getting worse, weak, dizzy, coughing up a lot of phlem. History of Present Illness Patient has a history of chronic tonsillitis. ??Started approximate week ago with sore throat occasional cough but nothing significant.?? Was seen by primary provider given steroid. ??Had throat culture done however does not know the results.?? Last time she was antibiotics was in May of this year. ??She has pending ENT referral. ??She has not heard from them yet. ??She states she always has large tonsils. ??She denies any associated fever, chills, sweats.?? Feels similar to prior time when she has had flares of her chronic tonsillitis.?? She states typically Kapta works well for her. ??She has never had it failed. Physical Exam Vitals & Measurements HR:??91??(Peripheral)?? BP:??119/65?? SpO2:??100%?? WT:??0.86??(Percentile)?? WT:??42.64??kg?? Pain Score:??8?? General: Alert and oriented, well nourished, no acute distress. Eye:??Pupils are reactive, conjunctiva clear. HENT: Normocephalic, clear tympanic membranes,??large tonsils. ??No exudate slightly erythematous. Neck: Supple, non-tender, no lymphadenopathy Lungs: Clear to auscultation, non-labored respiration. Heart: Normal rate, regular rhythm, no murmur, gallop or edema. Skin: Skin is warm, dry, no rashes or lesions in examined areas. Neurologic: Awake, alert and oriented X3, normal cognition and interaction. Psychiatric: Cooperative, appropriate mood and affect. Assessment/Plan 1.??Pharyngitis??J02.9 ??Patient with large tonsils, chronic tonsillitis with flare. ??She has very strong gag reflex would not like to be swabbed. ??At this time I am okay empirically treating her. ??She is aware of the risk benefits and alternatives. ??She will follow-up with ENT on Friday??to schedule an appointment for discussion around her chronic tonsillitis. ??Patient discharged good condition. Ordered: penicillin V potassium 250 mg/5 mL oral liquid, 500 mg = 10 mL, Oral, every 8 hr, # 300 mL, 0 Refill(s), Pharmacy: [facility] #[id number], 162.56, cm, 04/12/23 8:47:00 EST, Height, 42.64, kg, 08/09/23 10:35:00 EDT, Weight Dosing Office serv/reg sandeep/wkend/holiday [id number], 08/09/23 10:27:00 EDT, Pharyngitis ?? Patient Instructions Verbal instructions per patient request Problem List/Past Medical History Ongoing Amenorrhea Anxiety Decrease in appetite Epigastric pain Lipoma of abdominal wall Loss of taste Major depression, single episode Menometrorrhagia Nausea Patient encounter status Tonsillitis Historical No qualifying data Medications Albuterol (Eqv-ProAir HFA) 90 mcg/inh inhalation aerosol, 2 puffs, Inhale, every 6 hr Depo-Provera Contraceptive 150 mg/mL intramuscular suspension Fosfomycin Tromethamine 3 g oral granule for reconstitution, 3 g= 1 EA, Oral, Once ondansetron 4 mg oral tablet, disintegrating, 4 mg= 1 tab, Oral, TID penicillin V potassium 250 mg/5 mL oral liquid, 500 mg= 10 mL, Oral, every 8 hr Allergies No Known Allergies No Known Medication [...] Comments : Unit: Unknown Electronically Signed on 08/09/2023 10:52 EDT KEREN Porter Patient Care team information Care Team Personnel Name: MELVA WATTS APRN Position: No Access Member Role: Primary Care Physician Address: Address: [facility] [address] [place] [address]- Name: Krystal Kurtz APRN Position: Physician Member Role: Nurse Practitioner Address: Address: [address] [place] [address]- Care Team Related Persons Name: FAIZA BALBUENA
--- OUTSIDE RECORDS SUMMARY | 2024-02-03 12:35 | XMS_ITS | Continuity of Care Document ---
Author Organization [facility] Address [address] [place] [id number] Care Team Providers Care Engine Cowling Installer Name Role Phone MELVA WATTS APRN Primary Care Physician Encounter [facility] NBR [id number] Date(s): 04/22/23 - 04/22/[address] [address] Encounter Diagnosis Dysuria(Final) - Discharge Disposition: Home [...] hr, # 8.5 g, 0 Refill(s), Pharmacy: [facility] #[id number], 162, cm, 02/25/23 11:58:00 EST, Height, 42, kg, 03/16/23 18:01:00 EST, Weight Dosing Start Date: 03/17/23 Stop Date: 04/16/23 Status: Ordered Depo-Provera Contraceptive 150 mg/mL intramuscular suspension 1 Unknown, 0 Refill(s) Start Date: 11/29/21 Status: Ordered fosfomycin 3 g oral granule for reconstitution 3 g = 1 EA, Oral, Once, # 1 packets, 0 Refill(s), Pharmacy: [facility] #[id number], 162, cm, 08/15/22 18:08:00 EDT, Height/Length Dosing, 42.64, kg, 01/15/23 20:27:00 EST, Weight Dosing Start Date: 01/15/23 Status: Ordered fosfomycin 3 g oral granule for reconstitution 3 g = 1 EA, Oral, Once, # 1 packets, 0 Refill(s), Pharmacy: [facility] #[id number], 162.56, cm, 04/12/23 8:47:00 EST, Height, 41.73, kg, 04/22/23 17:44:00 EDT, Weight Dosing Start Date: 04/22/23 Status: Ordered fosfomycin 3 g oral granule for reconstitution 3 g = 1 EA, Oral, Once, # 1 packets, 0 Refill(s), Pharmacy: [facility] #[id number], 162.56, cm, 04/12/23 8:47:00 EST, Height, 41.73, kg, 04/22/23 17:44:00 EDT, Weight Dosing Start Date: 04/22/23 Status: Ordered fosfomycin 3 g oral granule for reconstitution 3 g = 1 EA, Oral, Once, # 1 packets, 0 Refill(s), Pharmacy: [facility] #[id number], 162.56, cm, 04/12/23 8:47:00 EST, Height, 41.73, kg, 04/22/23 17:44:00 EDT, Weight Dosing Start Date: 04/22/23 Status: Ordered ondansetron 4 mg oral tablet, disintegrating 4 mg = 1 tab, Oral, TID, # 10 tab, 0 Refill(s), [facility]acy: [facility] #[id number], 162, cm, 02/25/23 11:58:00 EST, Height, 40.8, kg, 02/25/23 12:04:00 EST, Weight Dosing Start Date: 02/25/23 Status: Ordered Tessalon Perles 100 mg oral capsule 100 mg = 1 cap, Oral, TID, PRN as needed for cough, # 21 cap, 0 Refill(s), Pharmacy: [facility] #[id number], 162, cm, 02/25/23 11:58:00 EST, Height, 42, [...] Xpress MVP (GeneXpert) (Vaginitis PCR Pa adam) 04/22/23 Most recent to oldest [Reference Range]: 1 Bacterial Vaginosis MVP (GeneXpert) [Neg ative] Negative (04/22/23 6:20 PM) Elvira glab-krus MVP (GeneXpert) [Not D etected] Not Detected (04/22/23 6:20 PM) Elvira group MVP (GeneXpert) [Not Detec khari] Not Detected (04/22/23 6:20 PM) Trichomonas vaginalis MVP (GeneXpert) [N ot Detected] Not Detected (04/22/23 6:20 PM) Orders for Microbiology Reports Name Date Urine Culture 04/22/23 Microbiology Reports TEST:Urine Culture STATUS:Order in Progress BODY SITE: SOURCE:Urine, Clean Catch COLLECTED DATE/TIME:04/22/23 6:20 PM PRELIMINARY REPORT No growth first am read Social History Social History Type Response Tobacco Never tobacco user, smokeless tobacco daily Tobacco Use:. Sex Female Patient Care team information Care Team Personnel Name: MELVA WATTS APRN Position: No Access Member Role: Primary Care Physician Address: Address: [address] [address] Name: Krystal Kurtz APRN Position: Physician Member Role: Nurse Practitioner Address: Address: [address] [place] [address] [address] [place], [place] [email or web address] Care Team Related Persons Name: FAIZA BALBUENA Name: ALVARO BALBUENA Address: [address] [place], [place] [id number] Name: CAROLINA BALBUENA Address: [facility]
--- OUTSIDE RECORDS SUMMARY | 2024-02-03 12:35 | XMS_ITS | Continuity of Care Document ---
Author Organization [facility] Address [address] [place] [address] Care Team Providers Care Resource Recovery Specialist Name Role Phone Christina Cardoso Primary Care Physician [phone] Encounter [facility] [facility] NBR [id number] Date(s): 02/17/22 - 02/17/[address] [address] [place] Encounter Diagnosis Possible exposure to STD(Discharge Diagnosis) - 02/17/22 Discharge Disposition: Home or Self Care Attending Physician: Nori Crum MD Admitting Physician: Nori Crum MD Allergies, Adverse Reactions, Alerts No Known Allergies Immunizations Given and Recorded Vaccine Date Status [...] #60, # 60 tab, 0 Refill(s), Pharmacy: [facility] #94 Start Date: 12/12/21 Status: Ordered hyoscyamine 0.125 mg oral tablet, disintegrating QID, 0 Refill(s) Start Date: 11/29/21 Status: Ordered Lexapro 5 mg oral tablet 10 mg = 2 tab, Oral, Daily, Take one tab daily for 7 days then take 2 tabs daily, # 60 tab, 0 Refill(s), Pharmacy: [facility] #94 Start Date: 12/05/21 Stop Date: 01/04/22 [...] cycle, # 12 EA, 3 Refill(s), Pharmacy: [facility] #94, 163, cm, 12/21/21 17:49:00 EST, Height/Length Dosing, 38.56, kg, 12/21/21 17:49:00 EST, Weigh... Start Date: 02/07/22 Status: Ordered Mental Status 02/17/22 Eye Opening Response Rickreall Spontaneous ly Best Verbal Response Rickreall Oriented Best Motor Response Belkis Obeys comman ds Belkis Coma Score 15 Problem List Condition Confirmation [...] Chlamydia trachomatis and Neisseria gono rrhoeae (GeneXpert) 02/17/22 Test Urine Qual 02/17/22 Vaginitis Panel DNA Probe (BD Affirm) 02/17/22 Most recent to oldest [Reference Range]: 1 Trichomonas-BD Affirm [Negative] Negativ e (02/17/22 11:26 PM) Gardnerella-BD Affirm [Negative] Negativ e (02/17/22 11:26 PM) Elvira Species -BD Affirm [Negative] Ne gative (02/17/22 11:26 PM) Chlamydia trachomatis DNA -GeneXpert [No t Detected] Not Detected (02/17/22 11:26 PM) Neisseria gonorrhoeae DNA -GeneXpert [No t Detected] Not Detected (02/17/22 11:26 PM) U hCG Ql [Negative] Negative (02/17/22 11:26 PM) Vital Signs Most recent to oldest [Reference Range]: 1 Temperature Temporal Artery [36-38 Deg C ] 36.7 Deg C (02/17/22 10:28 PM) Peripheral Pulse Rate [60-100 bpm] 89 bp m (02/17/22 10:28 PM) Blood Pressure [90-140/60-90 mmHg] 116/7 2mmHg (02/17/22 10:28 PM) Weight 40.60 kg (02/17/22 10:28 PM) Weight Dosing 40.60 kg (02/17/22 11:22 PM) Height 163.000 cm (02/17/22 10:28 PM) Height/Length Dosing 163.000 cm (02/17/22 11:22 PM) Body Mass Index 15.000 kg/m2 (02/17/22 10:28 PM) Body Mass Index Percentile 0.01 1 (02/17/22 10:28 PM) 1Result Comment: ^~:!Percentile Source -[facility] Social History Social History Type Response Tobacco Never tobacco user, smokeless tobacco daily Tobacco Use:. Sex Female Hospital Discharge Instructions Patient Education 02/17/2022 22:25:59 Safe Sex Safe Sex Practicing safe sex means taking steps before and during sex to reduce your risk of: ??? Getting an STI (sexually transmitted infection). ??? Giving your partner an STI. ??? Unwanted or unplanned . How to practice safe sex Ways you can practice safe sex ??? Limit your sexual partners to only one partner who is having sex with only you. ??? Avoid using alcohol and drugs before having sex. Alcohol and drugs can affect your judgment. ??? Before having sex with a new partner: ??? Talk to your partner about past partners, past STIs, and drug use. ??? Get screened for STIs and discuss the results with your partner. Ask your partner to get screened too. ??? Check your body regularly for sores, blisters, rashes, or unusual discharge. If you notice any of these problems, visit your health care provider. ??? Avoid sexual contact if you have symptoms of an infection or you are being treated for an STI. ??? While having sex, use a condom. Make sure to: ??? Use a condom every time you have vaginal, oral, or anal sex. Both females and males should wearcondoms during oral sex. ??? Keep condoms in place from the beginning to the end of sexual activity. ??? Use a latex condom, if possible. Latex condoms offer the best protection. ??? Use only water-based lubricants with a condom. Using petroleum-based lubricants or oils will weaken the condom and increase the chance that it will break. Ways your health care provider can help you practice safe sex ??? See your health care provider for regular screenings, exams, and tests for STIs. ??? Talk with your health care provider about what kind of control (contraception) is best for you. ??? Get vaccinated against hepatitis B and human papillomavirus (HPV). ??? If you are at risk of being infected with HIV (human immunodeficiency virus), talk with your health care provider about taking a prescription medicine to prevent HIV infection. You are at risk for HIV if you: ??? Are a man who has sex with other men. ??? Are sexually active with more than one partner. ??? Take drugs by injection. ??? Have a sex partner who has HIV. ??? Have unprotected sex. ??? Have sex with someone who has sex with both men and women. ??? Have had an STI. Follow these instructions at home: ??? Take vhlr-wtv-ukrkymc and prescription medicines only as told by your health care provider. ??? Keep all follow-up visits. This is important. Where to find more information ??? Centers for Disease Control and Prevention: www.cdc.gov ??? Planned Parenthood: www.plannedparenthood.org ??? Office on Women's Health: www.womenshealth.gov Summary ??? Practicing safe sex means taking steps before and during sex to reduce your risk getting an STI, giving your partner an STI, and having an unwanted or unplanned . ??? Before having sex with a new partner, talk to your partner about past partners, past STIs, and drug use. ??? Use a condom every time you have vaginal, oral, or anal sex. Both females and males should wearcondoms during oral sex. ??? Check your body regularly for sores, blisters, rashes, or unusual discharge. If you notice any of these problems, visit your health care provider. ??? See your health care provider for regular screenings, exams, and tests for STIs. This information is not intended to replace advice given to you by your health care provider. Make sure you discuss any questions you have with your health care provider. Document Revised: 07/03/2020 Document Reviewed: 07/03/2020 [employer] Patient Education ?? 2021 [employer]. Follow Up Care 02/17/2022 22:28:40 With:primary care physician Address: When:3 to 5 days Emergency department Discharge instructions * Nori Crum MD: PERFORM Event Display: ED Discharge Information Authored Date: [id number] JOSE ROBERTO BALBUENA :2005 Age:17 years Sex:Female Visit Date:02/17/2022 Primary Care Physician: Christina Cardoso MD Discharge Instructions We would like to thank you for allowing us to assist you with your healthcare needs. The following includes patient education materials and information regarding your injury/illness. Diagnosis from Today's Visit Possible exposure to STD Discharge Vitals Temperature??(Temporal Artery) 98.1 ??F (36.7 ??C) Heart Rate??(Peripheral) 89 Blood Pressure?? 116/72?? Height?? 64.17 in (163.000 cm) Weight?? 89.52 lb (40.60 kg) BMI?? 15.000 Allergies No Known Allergies No Known Medication Allergies What to Do Next You Need to Schedule the Following Appointments Follow Up with??primary care physician When:??Within 3 to 5 days You were treated today on an emergency [...] mL intramuscular suspension) 1 Unknown ?? Unchanged norelgestromin-ethinyl estradiol (Xulane 150 mcg-35 mcg/ 24 hr transdermal film, extendedrelease) 1 patch(es) Topical (on the skin) Every week apply a new patch weekly for 3 weeks, remove for 1 week, then repeat cycle ?? Unchanged promethazine (promethazine 12.5 mg oral tablet) 4 times a day Education Materials Safe Sex Practicing safe sex means taking steps before and during sex to reduce your risk of: ? Getting an STI (sexually transmitted infection). ? Giving your partner an STI. ? Unwanted or unplanned . How to practice safe sex Ways you can practice safe sex ? Limit your sexual partners to only one partner who is having sex with only you. ? Avoid using alcohol and drugs before having sex. Alcohol and drugs can affect your judgment. ? Before having sex with a new partner: ? Talk to your partner about past partners, past STIs, and drug use. ? Get screened for STIs and discuss the results with your partner. Ask your partner to get screened too. ? Check your body regularly for sores, blisters, rashes, or unusual discharge. If you notice any of these problems, visit your health care provider. ? Avoid sexual contact if you have symptoms of an infection or you are being treated for an STI. ? While having sex, use a condom. Make sure to: ? Use a condom every time you have vaginal, oral, or anal sex. Both females and males should wear condoms during oral sex. ? Keep condoms in place from the beginning to the end of sexual activity. ? Use a latex condom, if possible. Latex condoms offer the best protection. ? Use only water-based lubricants with a condom. Using petroleum-based lubricants or oils will weakenthe condom and increase the chance that it will break. Ways your health care provider can help you practice safe sex ? See your health care provider for regular screenings, exams, and tests for STIs. ? Talk with your health care provider about what kind of control (contraception) is best for you. ? Get vaccinated against hepatitis B and human papillomavirus (HPV). ? If you are at risk of being infected with HIV (human immunodeficiency virus), talk with your healthcare provider about taking a prescription medicine to prevent HIV infection. You are at risk for HIV if you: ? Are a man who has sex with other men. ? Are sexually active with more than one partner. ? Take drugs by injection. ? Have a sex partner who has HIV. ? Have unprotected sex. ? Have sex with someone who has sex with both men and women. ? Have had an STI. Follow these instructions at home: ? Take bewx-shw-prpowej and prescription medicines only as told by your health care provider. ? Keep all follow-up visits. This is important. Where to find more information ? Centers for Disease Control and Prevention: www.cdc.gov ? Planned Parenthood: www.plannedparenthood.org ? Office on Women's Health: www.womenshealth.gov Summary ? Practicing safe sex means taking steps before and during sex to reduce your risk getting an STI, giving your partner an STI, and having an unwanted or unplanned . ? Before having sex with a new partner, talk to your partner about past partners, past STIs, and druguse. ? Use a condom every time you have vaginal, oral, or anal sex. Both females and males should wear condoms during oral sex. ? Check your body regularly for sores, blisters, rashes, or unusual discharge. If you notice any of these problems, visit your health care provider. ? See your health care provider for regular screenings, exams, and tests for STIs. This information is not intended to replace advice given to you by your health care provider. Make sure you discuss any questions you have with your health care provider. Document Revised: 07/03/2020 Document Reviewed: 07/03/2020 [employer] Patient Education ?? 2021 [employer] Patient/Preventive Medicine Specialist Signature Patient Name:JOSE ROBERTO BALBUENA I have received this information and my questions have been answered. Patient/Preventive Medicine Specialist Name: Patient/Preventive Medicine Specialist Signature: Relationship to Patient: Witness Name/Signature: Date: Electronically Signed on: 02/17/2022 23:26 ESTSigned by: Patient Care team information Personnel Name: Christina Cardoso MD Address: Address: [address] [place] [phone]
--- OUTSIDE RECORDS SUMMARY | 2024-02-03 12:35 | XMS_ITS | Continuity of Care Document ---
Author Organization [facility] Address [address] [place] [id number] Care Team Providers Care Bail Bond Agent Name Role Phone Barbara Orourke MD Primary Care Physician Encounter [facility] NBR [id number] Date(s): 03/16/23 - 03/16/[address] [address] Encounter Diagnosis Acute upper respiratory infection, unspecified(Final) - Discharge Disposition: Home or Self Care Attending Physician: KEREN Porter Admitting Physician: KEREN Porter Referring Physician: KEREN Porter Allergies, Adverse Reactions, Alerts [...] Once, # 1 packets, 0 Refill(s), Pharmacy: [facility] #[id number], 162, cm, 08/15/22 18:08:00 EDT, Height/Length Dosing, 42.64, kg, 01/15/23 20:27:00 EST, Weight Dosing Start Date: 01/15/23 Status: Ordered ondansetron 4 mg oral tablet, disintegrating 4 mg = 1 tab, Oral, TID, # 10 tab, 0 Refill(s), Pharmacy: [facility] #[id number], 162, cm, 02/25/23 11:58:00 EST, Height, 40.8, [...] Confirmed Active Results Laboratory List Name Date SARS-CoV-2 (COVID-19)/Flu/RSV ([facility] ) 03/16/23 Most recent to oldest [Reference Range]: 1 SARS-CoV-2(Covid19)PCR([facility] COVFLURSV) [Negative] Negative (03/16/23 6:15 PM) Flu A ([facility] COVFLURSV) [Negative] Nega tive (03/16/23 6:15 PM) RSV ([facility] COVFLURSV) [Negative] Negati ve (03/16/23 6:15 PM) Flu B ([facility] COVFLURSV) [Negative] Nega tive (03/16/23 6:15 PM) Social History Social History Type Response Tobacco Never tobacco user, smokeless tobacco daily Tobacco Use:. Sex Female Patient Care team information Care Team Personnel Name: Barbara Orourke MD Position: No Access Member Role: Primary Care Physician Address: Address: [address] [place] [id number] Name: Krystal Kurtz APRN Position: No Access Member Role: Nurse Practitioner Address: Address: [address] [place] [address] [place] [id number] Care Team Related Persons Name: FAIZA BALBUENA Name: ALVARO BALBUENA Address: [address] [place], [place] [id number] Name: CAROLINA BALBUENA Address: [facility]
--- OUTSIDE RECORDS SUMMARY | 2024-02-03 12:35 | XMS_ITS | Continuity of Care Document ---
Author Organization [facility] Ambulatory Clinics Address [address] [place] [address] Care Team Providers Care Architecture Instructor Name Role Phone MELVA WATTS APRN Primary Care Physician Encounter [facility] NBR [id number] Date(s): 09/15/23 - 09/15/23 [facility] Ambulatory Clinics [address] [place], [place] [address] Encounter Diagnosis Rash of hand(Discharge Diagnosis) - 09/15/23 Discharge Disposition: Home or Self Care Attending Physician: Ayla Hopper APRN Allergies, Adverse Reactions, Alerts No Known Allergies Assessment and Plan Extracted from: Title:Office Visit Note Author:Elly Mccartney PRN Date:09/15/23 1.??Rash of hand??R21 Future Appointments Future Scheduled Tests Laboratory* CBC w/ Diff 09/15/23 * Comprehensive Metabolic Panel 09/15/23 * TSH w/ Rflx to Free T4 09/15/23 * Urine Culture 01/03/23 * Chlamydia trachomatis and [...] 10 tab, 0 Refill(s), [facility]: [id number], 162, cm, 02/25/23 11:58:00 EST, Height, 40.8, [...] Range]: 1 Temperature Oral [35.8-37.3 Deg C] 36.7 Deg C (09/15/23 9:33 AM) Peripheral Pulse Rate [60-100 bpm] 89 bp m (09/15/23 9:33 AM) Blood Pressure [90-140/60-90 mmHg] 114/5 9mmHg (09/15/23 9:33 AM) Mean Arterial Pressure, Cuff [65-140 mmH g] 77 mmHg (09/15/23 9:33 AM) Weight 42.82 kg (09/15/23 9:33 AM) Weight Measured (lbs) 94.402 lb (09/15/23 9:33 AM) Weight Dosing 42.820 kg (09/15/23 9:33 AM) Height 162.56 cm (09/15/23 9:33 AM) Height/Length Measured (inches) 64 inch (09/15/23 9:33 AM) BSA Measured 1.39 m2 (09/15/23 9:33 AM) Body Mass Index 16.2 kg/m2 (09/15/23 9:33 AM) Body Mass Index Percentile 0.28 1 (09/15/23 9:33 AM) Height/Length Percentile 45.34 2 (09/15/23 9:33 AM) Weight Percentile 0.95 3 (09/15/23 9:33 AM) 1Result Comment: ^~:!Percentile Source -CDC 2Result Comment: ^~:!Percentile Source -CDC 3Result Comment: ^~:!Percentile Source -[facility] Social History Social History Type Response Tobacco Never tobacco user, smokeless tobacco daily Tobacco Use:. Sex Female Physician Outpatient Note * Ayla Hopper APRN: PERFORM Event Display: Office Clinic Note Physician Authored Date: [id number] JOSE ROBERTO BALBUENA :2005 Age:18 years Sex:Female Visit Date:09/15/2023 Primary Care Physician: MELVA WATTS APRN Chief Complaint ? allergic rxn pt on abx and now has some redness on hands and her throats feels itchy History of Present Illness Patient is a 18-year-old female who presents today??with a chief complaint of rash. ??She states??that she has been completing a course of cefdinir for??pharyngitis. ??She has been having recurrent strep infections. ??She noted over the past 24 hours she had some??scattered??areas on her hands thatwere itchy.?her throat has been feeling better Review of Systems see hpi Physical Exam Vitals & Measurements T:??36.7?C ??(Oral)?? HR:??89??(Peripheral)?? BP:??114/59?? SpO2:??99%?? HT:??45.34??(Percentile)?? HT:??162.56??cm?? WT:??0.95??(Percentile)?? WT:??42.82??kg?? BMI:??0.28??(Percentile)?? BMI:??16.2?? BSA:??1.39?? Skin: No concerning lesions in examined areas. Head: Normal cephalic without trauma or injury. Neck: Supple, nontender, normal range of motion Eye: Pupils reactive. ??Conjunctiva clear. Sclera nonicteric. ??No swelling, obvious foreign bodies. ??Extraocular movement intact. ENT ear: Normal external, canal clear, TMs normal bilaterally. ??Nose: No discharge, normal mucosa,no swelling. ??Sinuses: Nontender to percussion. ??Oropharynx: 2+ bilateral tonsillar enlargement, erythema Cardiovascular: Regular rate and rhythm. ??No murmur, rubs, or gallops. Respiratory: Clear to auscultation bilaterally. ??No wheezes, rales, rhonchi. ?? Medical Decision Making: Evaluated for rash. ??It does not appear to??be medication reaction rash it is not??global, some scattered maculopapular??areas on the hands that are itchy. ??She has approximately 2 doses left of the cefdinir. ??I told her she was okay to stop taking that, she will continue the prednisolone syrup.??She has a scheduled appointment with ENT next month which she will keep.?? Should continue to monitor for any worsening signs or symptoms Assessment/Plan 1.??Rash of hand??R21 Problem List/Past Medical History Ongoing Amenorrhea Anxiety Decrease in appetite Epigastric pain Lipoma of abdominal wall Loss of taste Major depression, single episode Menometrorrhagia Nausea Patient encounter status Tonsillitis Historical No qualifying data Medications cefdinir 250 mg/5 mL oral liquid, 300 mg= 6 mL, Oral, every 12 hr Depo-Provera Contraceptive 150 mg/mL intramuscular suspension ondansetron 4 mg oral tablet, disintegrating, 4 mg= 1 tab, Oral, TID Allergies No Known Allergies No Known Medication [...] Comments : Unit: Unknown Electronically Signed on 09/15/2023 09:40 EDT Ayla Hopper APRN Patient Care team information Care Team Personnel Name: MELVA WATTS APRN Position: No Access Member Role: Primary Care Physician Address: Address: [facility] - [id number] [place] [address] Name: Krystal Kurtz APRN Position: Physician Member Role: Nurse Practitioner Address: Address: [address] [place] [address] [address] [place] [address]- Care Team Related Persons Name: FAIZA BALBUENA
--- OUTSIDE RECORDS SUMMARY | 2024-02-03 12:35 | XMS_ITS | Continuity of Care Document ---
Author Organization [facility] Address [address] [place] [address] Care Team Providers Care Rubbish Collection Supervisor Name Role Phone Christina Cardoso Primary Care Physician Encounter [facility] NBR [id number] Date(s): 08/05/22 - 08/05/22 [facility] [address] [place] [address]- Encounter Diagnosis Unspecified injury of left wrist, hand and finger(s), initial encounter(Final) - Unspecified external cause status(Final) - Abnormal findings on diagnostic imaging of other parts of musculoskeletal system (Final) - Discharge Disposition: Home or Self Care Attending Physician: Angel Yost. KEREN Admitting Physician: Angel Yost. KEREN Referring Physician: Angel Yost. KEREN Allergies, Adverse Reactions, [...] Active Patient encounter status Confirmed Active Results Radiology Reports * Exam Date Time Procedure Performing Provider Status 08/05/22 8:14 PM XR Finger(s) 2+ Views Left DomainUser, Generated; Auth (Verified) Notes: (XR Finger(s) 2+ Views Left) Reason For Exam: Left little finger x-ray please, injury XR Finger(s) 2+ Views Left EXAM DESCRIPTION: XR Finger(s) 2+ Views Left 08/05/2022 INDICATION: LEFT LITTLE FINGER X-RAY PLEASE, INJURY TECHNIQUE: Small finger left hand, three views COMPARISON: None IMPRESSION: Small osseous density adjacent to the distal-ulnar aspect of the 5th proximal phalanx on the AP projection suspicious for mildly displaced avulsion fracture. No additional fracture with no dislocation No regional arthritic changes. JOB #: [id number] Final Signed by: Kiet Ragsdale MD Signed (Electronic Signature): 08/05/2022 10:43 pm Social History Social History Type Response Tobacco Never tobacco user, smokeless tobacco daily Tobacco Use:. Sex Female Patient Care team information Care Team Personnel Name: Krystal Kurtz APRN Position: Physician Member Role: Nurse Practitioner Address: Address: [address] [place] [address] [address] [place], [place] [address] Name: Christina Cardoso MD Position: Physician Member Role: Primary Care Physician Address: Address: [address] [place] [address] Care Team Related Persons Name: ALVARO BALBUENA Address: Home [address] [place] [id number] Name: ALVARO BALBUENA Address: Home [address] [place], [place] [id number] [facility] Name: CAROLINA BALBUENA Address: [facility]
--- OUTSIDE RECORDS SUMMARY | 2024-02-03 12:35 | XMS_ITS | Continuity of Care Document ---
Author Organization [facility] Address [address] [place] [address] Care Team Providers Care Mime Artist Name Role Phone Barbara Orourke MD Primary Care Physician [phone] Encounter [facility] NBR [id number] Date(s): 01/27/23 - 01/27/[address] [id number]- Encounter Diagnosis Pelvic pain(Discharge Diagnosis) - 01/27/23 Pelvic and perineal pain(Final) - Encounter for test, result negative(Final) - Discharge Disposition: Home or Self Care Attending Physician: Jason Daugherty MD Admitting Physician: Jason Daugherty MD Allergies, Adverse Reactions, Alerts No Known [...] Once, # 1 packets, 0 Refill(s), Pharmacy: [facility][id number], 162, cm, 08/15/22 18:08:00 EDT, Height/Length Dosing, [...] Results Laboratory List Name Date Automated Diff 01/27/23 CBC w/ Diff 01/27/23 Comprehensive Metabolic Panel (CMP) 01/10 10/02 Test Serum Qual 01/27/23 Most recent to oldest [Reference Range]: 1 WBC [4.8-10.8 K/mcL] 5.3 K/mcL (01/27/23 3:10 PM) RBC [4.20-5.40 Million/mcL] 4.70 Million /mcL (01/27/23 3:10 PM) Neutro Auto [42.2-75.2 %] 78.5 % *HI* (01/27/23 3:10 PM) Lymph Auto [20.5-51.1 %] 12.9 % *LOW* (01/27/23 3:10 PM) [place] Auto [1.7-9.3 %] 5.9 % (01/27/23 3:10 PM) Basophil Auto [0.0-0.8 %] 0.6 % (01/27/23 3:10 PM) BUN [7-25 mg/dL] 8 mg/dL (01/27/23 3:10 PM) Glucose Level [70-109 mg/dL] 91 mg/dL (01/27/23 3:10 PM) Potassium Level [3.5-5.1 mmol/L] 3.4 mmo l/L *LOW* (01/27/23 3:10 PM) Baso Absolute [0.0-0.2 K/mcL] 0.0 K/mcL (01/27/23 3:10 PM) MCV [81.0-99.0 fL] 85.8 fL (01/27/23 3:10 PM) AST [13-39 IntlUnit/L] 26 IntlUnit/L (01/27/23 3:10 PM) ALT [7-52 IntlUnit/L] 29 IntlUnit/L (01/27/23 3:10 PM) MCHC [32.0-37.0 g/dL] 34.5 g/dL (01/27/23 3:10 PM) Osmolality [275-295 mOsm/kg] 276 mOsm/kg (01/27/23 3:10 PM) Sodium Level [136-145 mmol/L] 139 mmol/L (01/27/23 3:10 PM) Lymph Absolute [1.2-3.4 K/mcL] 0.7 K/mcL *LOW* (01/27/23 3:10 PM) Hct [37.0-47.0 %] 40.3 % (01/27/23 3:10 PM) Calcium Level [8.6-10.3 mg/dL] 8.9 mg/dL (01/27/23 3:10 PM) [place] Absolute [0.1-0.6 K/mcL] 0.3 K/mcL (01/27/23 3:10 PM) Albumin Level [3.5-5.7 g/dL] 4.5 g/dL (01/27/23 3:10 PM) Protein Total [6.4-8.9 g/dL] 6.6 g/dL (01/27/23 3:10 PM) MCH [27.0-31.0 pg] 29.6 pg (01/27/23 3:10 PM) Neutro Absolute [1.4-6.5 K/mcL] 4.2 K/mc L (01/27/23 3:10 PM) Bilirubin Total [0.3-1.0 mg/dL] 0.5 mg/d L (01/27/23 3:10 PM) Hgb [12.0-16.0 g/dL] 13.9 g/dL (01/27/23 3:10 PM) Alk Phos [34-104 IntlUnit/L] 87 IntlUnit /L (01/27/23 3:10 PM) MPV [7.4-10.4 fL] 9.1 fL (01/27/23 3:10 PM) Platelets [130-400 K/mcL] 243 K/mcL (01/27/23 3:10 PM) CO2 [21-31 mmol/L] 24 mmol/L (01/27/23 3:10 PM) Eos Absolute [0.0-0.2 K/mcL] 0.1 K/mcL (01/27/23 3:10 PM) Chloride Level [98-107 mmol/L] 107 mmol/ L (01/27/23 3:10 PM) RDW-CV [11.5-14.5 %] 12.9 % (01/27/23 3:10 PM) A/G Ratio [1.0-2.5 g/dL] 2.1 g/dL (01/27/23 3:10 PM) BUN/Creat Ratio [8.0-20.0] 16.0 (01/27/23 3:10 PM) Globulin [2.3-3.5 g/dL] 2.1 g/dL *LOW* (01/27/23 3:10 PM) hCG Qual Serum [Negative] Negative (01/27/23 3:10 PM) Slide Review Not Indicated (01/27/23 3:10 PM) Creatinine Level [0.60-1.20 mg/dL] 0.50 mg/dL *LOW* (01/27/23 3:10 PM) Anion Gap [3.0-12.0] 8.0 (01/27/23 3:10 PM) Eos, Auto [0.00-3.00 %] 2.10 % (01/27/23 3:10 PM) eGFR CKD-EPI [>=60 mL/min/1.73 m2] 138 m L/min/1.73 m2 (01/27/23 3:10 PM) Vital Signs Most recent to oldest [Reference Range]: 1 Temperature Oral [35.8-37.3 Deg C] 36.4 Deg C (01/27/23 2:23 PM) Heart Rate Monitored [60-100 bpm] 91 bpm (01/27/23 2:23 PM) Respiratory Rate [12-24 br/min] 16 br/mi n (01/27/23 2:23 PM) Blood Pressure [90-140/60-90 mmHg] 95/45 mmHg (01/27/23 2:23 PM) Mean Arterial Pressure, Cuff [70-110 mmH g] 62 mmHg *LOW* (01/27/23 2:23 PM) Weight 42.64 kg (01/27/23 2:23 PM) Weight Dosing 42.640 kg (01/27/23 2:23 PM) Height 162.56 cm (01/27/23 2:23 PM) Body Mass Index 16.14 kg/m2 (01/27/23 2:23 PM) Body Mass Index Percentile 0.27 1 (01/27/23 2:23 PM) Height/Length Percentile 45.70 2 (01/27/23 2:23 PM) Weight Percentile 0.92 3 (01/27/23 2:23 PM) 1Result Comment: ^~:!Percentile Source -CDC 2Result Comment: ^~:!Percentile Source -CDC 3Result Comment: ^~:!Percentile Source -CDC Social History Social History Type Response Tobacco Never tobacco user, smokeless tobacco daily Tobacco Use:. Sex Female Hospital Discharge Instructions Patient Education 01/27/2023 15:03:55 Pelvic Pain, Female Pelvic Pain, Female Pelvic pain is pain in your lower abdomen, below your belly button and between your hips. The pain may start suddenly (be acute), keep coming back (be recurring), or last a long time (become chronic). Pelvic pain that lasts longer than 6 months is considered chronic. Pelvic pain may affect your: ??? Reproductive organs. ??? Urinary system. ??? Digestive tract. ??? Musculoskeletal system. There are many potential causes of pelvic pain. Sometimes, the pain can be a result of digestive orurinary conditions, strained muscles or ligaments, or reproductive conditions. Sometimes the cause of pelvic pain is not known. Follow these instructions at home: ??? Take [id number]-nwkjkwo and prescription medicines only as told by your health care provider. ??? Rest as told by your health care provider. ??? Do not have sex if it hurts. ??? Keep a journal of your pelvic pain. Write down: ??? When the pain started. ??? Where the pain is located. ??? What seems to make the pain better or worse, such as food or your monthly period (menstrual cycle). ??? Any symptoms you have along with the pain. ??? Keep all follow-up visits. This is important. Contact a health care provider if: ??? Medicine does not help your pain, or your pain comes back. ??? You have new symptoms. ??? You have abnormal vaginal discharge or bleeding, including bleeding after menopause. ??? You have a fever or chills. ??? You are constipated. ??? You have blood in your urine or stool (feces). ??? You have foul-smelling urine. ??? You feel weak or light-headed. Get help right away if: ??? You have sudden severe pain. ??? Your pain gets steadily worse. ??? You have severe pain along with fever, nausea, vomiting, or excessive sweating. ??? You lose consciousness. These symptoms may represent a serious problem that is an emergency. Do not wait to see if the symptoms will go away. Get medical help right away. Call your local emergency services (911 in the [place] Do not drive yourself to the hospital. Summary ??? Pelvic pain is pain in your lower abdomen, below your belly button and between your hips. ??? There are many potential causes of pelvic pain. ??? Keep a journal of your pelvic pain. This information is not intended to replace advice given to you by your health care provider. Make sure you discuss any questions you have with your health care provider. Document Revised: 06/05/2021 Document Reviewed: 06/05/2021 Else[employer] Patient Education ?? 2022 [employer] Follow Up Care 01/27/2023 14:23:24 With:Tylenol/Motrin for Pain/Fever Relief Address: When: Unknown Comments:Utilize Motrin 400-600 mg??every 6-8 hours as needed discomfort, Tylenol 1000 mg every 8 hours??as needed With:Follow-up with your primary care Address: When:1 week Comments:Follow-up with your primary care as needed, they will be able to reevaluate if necessaryReturn to ED if concerns Physician Emergency department Note * KEREN Webber: PERFORM Event Display: ED Note Physician Authored Date: [id number] JOSE ROBERTO BALBUENA :2005 Age:18 years Sex:Female Visit Date:01/27/2023 Primary Care Physician: Christina Cardoso MD Basic Information Time Seen: KEREN Webber / 01/27/2023 14:24 Chief Complaint menstral cycle started yesterday , pelvic pain started with painful cramps , took tylenol no relief . ?? Normal cycle started ??yesterday , states ??protected intercourse History Of Present Illness: Patient is a 18-year-old female presents emergency department with pelvic pain??she notes that she started her menstrual cycle yesterday has had??protected sex with no signs of any discharge or??other concern vaginally, she notes that she typically does not have significant pain like this with her m enstrual cycle and is fearful that there is other??pathology of foot.?? She has primarily right lower quadrant discomfort??that presented in this fashion she has had some mild nausea with no vomiting.?? She is taking Tylenol only and states that ibuprofen does not help her. Review of Systems: See HPI Physical Exam Vitals & Measurements T:??36.4?C ??(Oral)?? HR:??91??(Monitored)?? RR:??16?? BP:??95/45?? SpO2:??100%?? HT:??45.70??(Percentile)?? HT:??162.56??cm?? WT:??0.92??(Percentile)?? WT:??42.64??kg?? BMI:??0.27??(Percentile)?? BMI:??16.14?? Patient alert oriented age-appropriate well-nourished nontoxic Normocephalic atraumatic Neck supple nontender EOM intact, PERRLA, sclera nonicteric Clear to auscultation bilaterally Regular rate and rhythm no murmurs Abdominal exam reveals normal bowel sounds,??positive rebound tenderness,??positive psoas sign,??resonant to percussion, thin in appearance,??aorta palpable but unremarkable Medical Decision Making: While here in the emergency department patient was given IV fluids and Toradol.?? I awaited test??before ordering a CT scan. ??I had a lengthy discussion with the patient that??we will be ordering a scan to rule out appendicitis that she does has right-sided predominant.?? I did discuss with her this is could be ovarian in nature??however at this time she understands and??initially agreed to??CT scan.?? She while in CT declined IV contrast. ??I had a lengthy discussion with her why wewould need IV contrast??and I did I did not feel that with her body habitus??a noncontrasted scan would be helpful. ??She at this time has elected to decline scan altogether and be discharged. Procedure No Qualifying Data Assessment/Plan 1.??Pelvic pain??R10.2 Patient will follow-up with primary care as needed she will follow-up with her primary care??to getan OB referral if necessary. ??She will return to the emergency department??if she has any new or worsening??concerns. ??She understands and agrees with this plan??understands the??strict return preca utions Patient Education Pelvic Pain, Female Follow Up With When Contact Information Tylenol/Motrin for Pain/Fever Relief Additional Instructions: Utilize Motrin 400-600 mg??every 6-8 hours as needed discomfort, Tylenol 1000 mg every 8 hours??as needed Follow-up with your primary care Within 1 week Additional Instructions: Follow-up with your primary care as needed, they will be able to reevaluate if necessary Return to ED if concerns Medication Reconciliation Unchanged fosfomycin (fosfomycin 3 g oral granule [...] Administration Given Sodium Chloride 0.9%, 1000 mL, Medication Bolus Toradol, 15 mg, IV Push Allergies No Known Allergies No Known Medication Allergies Social History Alcohol Never Electronic Cigarette/Vaping Electronic Cigarette Use: Use, within last 90 days. Use per Day: 1-25 Inhales/day. Tobacco Never tobacco user, smokeless tobacco daily Tobacco Use:. Lab Results CBC and Differential?? LATEST RESULTS?? HISTORICAL RESULTS?? WBC?? 01/27/23 15:10?? 5.3?? 08/15/22?? 4.9?? RBC?? 01/27/23 15:10?? 4.70?? 08/15/22?? 4.75?? Hgb?? 01/27/23 15:10?? 13.9?? 08/15/22?? 14.0?? Hct?? 01/27/23 15:10?? 40.3?? 08/15/22?? 41.3?? MCV?? 01/27/23 15:10?? 85.8?? 08/15/22?? 86.9?? MCH?? 01/27/23 15:10?? 29.6?? 08/15/22?? 29.5?? MCHC?? 01/27/23 15:10?? 34.5?? 08/15/22?? 33.9?? RDW-CV?? 01/27/23 15:10?? 12.9?? 08/15/22?? 12.1?? Platelets?? 01/27/23 15:10?? 243?? 08/15/22?? 272?? MPV?? 01/27/23 15:10?? 9.1?? 08/15/22?? 10.7 ??High?? Neutro Auto?? 01/27/23 15:10?? 78.5 ??High?? 08/15/22?? 66.1?? Lymph Auto?? 01/27/23 15:10?? 12.9 ??Low?? 08/15/22?? 21.6?? [place] Auto?? 01/27/23 15:10?? 5.9?? 08/15/22?? 7.6?? Eos, Auto?? 01/27/23 15:10?? 2.10?? 08/15/22?? 3.50 ??High?? Basophil Auto?? 01/27/23 15:10?? 0.6?? 08/15/22?? 1.0 ??High?? Neutro Absolute?? 01/27/23 15:10?? 4.2?? 08/15/22?? 3.2?? Lymph Absolute?? 01/27/23 15:10?? 0.7 ??Low?? 08/15/22?? 1.1 ??Low?? [place] Absolute?? 01/27/23 15:10?? 0.3?? 08/15/22?? 0.4?? Eos Absolute?? 01/27/23 15:10?? 0.1?? 08/15/22?? 0.2?? Baso Absolute?? 01/27/23 15:10?? 0.0?? 08/15/22?? 0.0?? Slide Review?? 01/27/23 15:10?? Not Indicated?? 08/15/22?? Not Indicated? Routine Chemistry?? LATEST RESULTS?? HISTORICAL RESULTS?? Sodium Level?? 01/27/23 15:10?? 139?? 08/15/22?? 139?? Potassium Level?? 01/27/23 15:10?? 3.4 ??Low?? 08/15/22?? 3.8?? Chloride Level?? 01/27/23 15:10?? 107?? 08/15/22?? 107?? CO2?? 01/27/23 15:10?? 24?? 08/15/22?? 24?? Alk Phos?? 01/27/23 15:10?? 87?? 08/15/22?? 86?? AST?? 01/27/23 15:10?? 26?? 08/15/22?? 21?? ALT?? 01/27/23 15:10?? 29?? 08/15/22?? 18?? BUN?? 01/27/23 15:10?? 8?? 08/15/22?? 10?? Glucose Level?? 01/27/23 15:10?? 91?? 08/15/22?? 95?? Creatinine Level?? 01/27/23 15:10?? 0.50 ??Low?? 08/15/22?? 0.54?? BUN/Creat Ratio?? 01/27/23 15:10?? 16.0?? 08/15/22?? 18.5?? eGFR CKD-EPI?? 01/27/23 15:10?? 138?? 08/15/22?? 137?? Calcium Level?? 01/27/23 15:10?? 8.9?? 08/15/22?? 9.3?? Protein Total?? 01/27/23 15:10?? 6.6?? 08/15/22?? 7.7?? Albumin Level?? 01/27/23 15:10?? 4.5?? 08/15/22?? 4.6?? Globulin?? 01/27/23 15:10?? 2.1 ??Low?? 08/15/22?? 3.1?? A/G Ratio?? 01/27/23 15:10?? 2.1?? 08/15/22?? 1.5?? Bilirubin Total?? 01/27/23 15:10?? 0.5?? 08/15/22?? 0.4?? Anion Gap?? 01/27/23 15:10?? 8.0?? 08/15/22?? 8.0?? Osmolality?? 01/27/23 15:10?? 276?? 08/15/22?? 276? Testing?? LATEST RESULTS?? hCG Qual Serum?? 01/27/23 15:10?? Negative? Electronically Signed on 01/27/23 09:24 PM KEREN Webber Emergency department Discharge instructions * KEREN Webber: PERFORM Event Display: ED Discharge Information Authored Date: [id number] JOSE ROBERTO BALBUENA :2005 Age:18 years Sex:Female Visit Date:01/27/2023 Primary Care Physician: Christina Cardoso MD Discharge Instructions We would like to thank you for allowing us to assist you with your healthcare needs. The following includes patient education materials and information regarding your injury/illness. Diagnosis from Today's Visit Pelvic pain Discharge Vitals Temperature??(Oral) 97.5 ??F (36.4 ??C) Heart Rate??(Monitored) 91 Respiratory Rate?? 16 Blood Pressure?? 95/45?? Height?? 64.00 in (162.56 cm) Weight?? 94.02 lb (42.64 kg) BMI?? 16.14 Allergies No Known Allergies No Known Medication Allergies What to Do Next Instructions from Your Care Team Again we cannot rule out appendicitis without the CT scan Follow-up with your primary care for any further evaluations??or return to the emergency departmentif you develop fever chills worsening abdominal pain nausea vomiting??or any other concerns. You Need to Schedule the Following Appointments Follow Up with??Tylenol/Motrin for Pain/Fever Relief Why: Utilize Motrin 400-600 mg??every 6-8 hours as needed discomfort, Tylenol 1000 mg every 8 hours??as needed Follow Up with??Follow-up with your primary care When:??Within 1 week Why: Follow-up with your primary care as needed, they will be able to reevaluate if necessary Return to ED if concerns You were treated today on an emergency [...] Much When Why Instructions Next Dose Unchanged fosfomycin (fosfomycin 3 g oral granule forreconstitution) 1 Each Oral (given by mouth) Once Dysuria Unchanged medroxyPROGESTERone (Depo-Provera Contraceptive 150 mg/ mL intramuscular suspension) 1 Unknown ?? Education Materials Pelvic Pain, Female Pelvic pain is pain in your lower abdomen, below your belly button and between your hips. The pain may start suddenly (be acute), keep coming back (be recurring), or last a long time (become chronic). Pelvic pain that lasts longer than 6 months is considered chronic. Pelvic pain may affect your: ? Reproductive organs. ? Urinary system. ? Digestive tract. ? Musculoskeletal system. There are many potential causes of pelvic pain. Sometimes, the pain can be a result of digestive orurinary conditions, strained muscles or ligaments, or reproductive conditions. Sometimes the cause of pelvic pain is not known. Follow these instructions at home: ? Take qqgk-leh-jqiylio and prescription medicines only as told by your health care provider. ? Rest as told by your health care provider. ? Do not have sex if it hurts. ? Keep a journal of your pelvic pain. Write down: ? When the pain started. ? Where the pain is located. ? What seems to make the pain better or worse, such as food or your monthly period (menstrual cycle). ? Any symptoms you have along with the pain. ? Keep all follow-up visits. This is important. Contact a health care provider if: ? Medicine does not help your pain, or your pain comes back. ? You have new symptoms. ? You have abnormal vaginal discharge or bleeding, including bleeding after menopause. ? You have a fever or chills. ? You are constipated. ? You have blood in your urine or stool (feces). ? You have foul-smelling urine. ? You feel weak or light-headed. Get help right away if: ? You have sudden severe pain. ? Your pain gets steadily worse. ? You have severe pain along with fever, nausea, vomiting, or excessive sweating. ? You lose consciousness. These symptoms may represent a serious problem that is an emergency. Do not wait to see if the symptoms will go away. Get medical help right away. Call your local emergency services (911 in the [place] Do not drive yourself to the hospital. Summary ? Pelvic pain is pain in your lower abdomen, below your belly button and between your hips. ? There are many potential causes of pelvic pain. ? Keep a journal of your pelvic pain. This information is not intended to replace advice given to you by your health care provider. Make sure you discuss any questions you have with your health care provider. Document Revised: 06/05/2021 Document Reviewed: 06/05/2021 [employer] Patient Education ?? 2022 [employer] Tests Performed Medications and Immunizations Administered Given Sodium Chloride 0.9%, 1000 mL, Medication Bolus Toradol, 15 mg, IV Push Lab Test Name Test Result Date/Time WBC 5.3 K/mcL 01/27/2023 15:10 EST RBC 4.70 Million/mcL 01/27/2023 15:10 EST Hgb 13.9 g/dL 01/27/2023 15:10 EST Hct 40.3 % 01/27/2023 15:10 EST MCV 85.8 fL 01/27/2023 15:10 EST MCH 29.6 pg 01/27/2023 15:10 EST MCHC 34.5 g/dL 01/27/2023 15:10 EST RDW-CV 12.9 % 01/27/2023 15:10 EST Platelets 243 K/mcL 01/27/2023 15:10 EST MPV 9.1 fL 01/27/2023 15:10 EST Neutro Auto 78.5 % 01/27/2023 15:10 EST Lymph Auto 12.9 % 01/27/2023 15:10 EST [place] Auto 5.9 % 01/27/2023 15:10 EST Eos, Auto 2.10 % 01/27/2023 15:10 EST Basophil Auto 0.6 % 01/27/2023 15:10 EST Neutro Absolute 4.2 K/mcL 01/27/2023 15:10 EST Lymph Absolute 0.7 K/mcL 01/27/2023 15:10 EST [place] Absolute 0.3 K/mcL 01/27/2023 15:10 EST Eos Absolute 0.1 K/mcL 01/27/2023 15:10 EST Baso Absolute 0.0 K/mcL 01/27/2023 15:10 EST Slide Review Not Indicated 01/27/2023 15:10 EST Sodium Level 139 mmol/L 01/27/2023 15:10 EST Potassium Level 3.4 mmol/L 01/27/2023 15:10 EST Chloride Level 107 mmol/L 01/27/2023 15:10 EST CO2 24 mmol/L 01/27/2023 15:10 EST Alk Phos 87 IntlUnit/L 01/27/2023 15:10 EST AST 26 IntlUnit/L 01/27/2023 15:10 EST ALT 29 IntlUnit/L 01/27/2023 15:10 EST BUN 8 mg/dL 01/27/2023 15:10 EST Glucose Level 91 mg/dL 01/27/2023 15:10 EST Creatinine Level 0.50 mg/dL 01/27/2023 15:10 EST BUN/Creat Ratio 16.0 01/27/2023 15:10 EST eGFR CKD-EPI 138 mL/min/1.73 m2 01/27/2023 15:10 EST Calcium Level 8.9 mg/dL 01/27/2023 15:10 EST Protein Total 6.6 g/dL 01/27/2023 15:10 EST Albumin Level 4.5 g/dL 01/27/2023 15:10 EST Globulin 2.1 g/dL 01/27/2023 15:10 EST A/G Ratio 2.1 g/dL 01/27/2023 15:10 EST Bilirubin Total 0.5 mg/dL 01/27/2023 15:10 EST Anion Gap 8.0 01/27/2023 15:10 EST Osmolality 276 mOsm/kg 01/27/2023 15:10 EST hCG Qual Serum Negative 01/27/2023 15:10 EST Patient/Milk Drier Signature Patient Name:JOSE ROBERTO BALBUENA I have received this information and my questions have been answered. Patient/Milk Drier Name: Patient/Milk Drier Signature: Relationship to Patient: Witness Name/Signature: Date: Electronically Signed on: 01/27/2023 16:04 ESTSigned by: Patient Care team information Care Team Personnel Name: Barbara Orourke MD Position: No Access Member Role: Primary Care Physician Address: Address: [address] [place], [place] [id number] [place] Name: Krystal Kurtz APRN Position: No Access Member Role: Nurse Practitioner Address: Address: [address] [place] [id number] Name: KEREN Webber Position: Physician Member Role: Physician Patternator Address: Address: [address] [place], [place] [id number] [place] Name: Rolanda Lunsford Position: Nurse Member Role: ED Nurse Care Team Related Persons Name: ALVARO BALBUENA Address: Home [address], [place] [id number] [facility] Name: ALVARO BALBUENA Address: Home [address] [place], [place] [id number] Name: CAROLINA BALBUENA Address: [facility]
--- OUTSIDE RECORDS SUMMARY | 2024-02-03 12:35 | XMS_ITS | Continuity of Care Document ---
Author Organization [facility] Ambulatory Clinics Address [address] [place] [address] Care Team Providers Care Operator Specialist Communications Name Role Phone MELVA WATTS APRN Primary Care Physician Encounter [facility] FIN NBR [id number] Date(s): 07/03/23 - 07/03/23 [facility] Ambulatory Clinics [address] [place] [address]- Encounter Diagnosis Cystitis(Discharge Diagnosis) - 07/03/23 Cystitis, unspecified without hematuria(Final) - Encounter for test, result negative(Final) - Discharge Disposition: Home or Self Care Attending Physician: Phil Costello APRN Allergies, Adverse Reactions, Alerts No Known Allergies Assessment and Plan Extracted from: Title:Office Visit Note Author:THANIA Healy Date:07/03/23 1.??Cystitis??N30.90 Future Appointments Future Scheduled Tests Laboratory* Urine Culture 01/03/23 * Chlamydia trachomatis and Neisseria gonorrhoeae (GeneXpert) 01/03/23 Radiology* US Transvaginal Non-OB 06/28/23 Immunizations Given and Recorded Vaccine Date Status [...] hr, # 8.5 g, 0 Refill(s), Pharmacy: [facility] #[id number], 162, cm, 02/25/23 11:58:00 EST, Height, 42, kg, 03/16/23 18:01:00 EST, Weight Dosing Start Date: 03/17/23 Stop Date: 04/16/23 Status: Ordered Depo-Provera Contraceptive 150 mg/mL intramuscular suspension 1 Unknown, 0 Refill(s) Start Date: 11/29/21 Status: Ordered Fosfomycin Tromethamine 3 g oral granule for reconstitution 3 g = 1 EA, Oral, Once, # 1 packets, 0 Refill(s), [id number], 162.56, cm, 04/12/23 8:47:00 EST, Height, 42.46, kg, 06/10/23 19:28:00 EDT, Weight Dosing Start Date: 07/03/23 Status: Ordered ondansetron 4 mg oral tablet, disintegrating 4 mg = 1 tab, Oral, TID, # 10 tab, 0 Refill(s), Pharmacy: [facility] #[id number], 162, cm, 02/25/23 11:58:00 EST, Height, 40.8, [...] Confirmed Active Results Laboratory List Name Date Urine Qual POCT 07/03/23 .Urinalysis POCT 07/03/23 Most recent to oldest [Reference Range]: 1 Method of Collect POC cc *NA* (07/03/23 9:52 AM) Specific [place], Ur POC 1.030 *NA* (07/03/23 9:52 AM) Specimen Color POC [Yellow] Yellow (07/03/23 9:52 AM) Glucose, Urine POC Negative mg/dL *NA* (07/03/23 9:52 AM) Bilirubin, Urine POC [Negative] Small *ABN* (07/03/23 9:52 AM) Ketones, Urine POC [Negative mg/dL] Nega tive mg/dL (07/03/23 9:52 AM) Blood, Urine POC [Negative] Negative (07/03/23 9:52 AM) pH, Urine POC 5.50 *NA* (07/03/23 9:52 AM) Protein, Urine POC [Negative mg/dL] Trac e mg/dL *ABN* (07/03/23 9:52 AM) Urobilinogen, Urine POC [0.2] 0.2 (07/03/23 9:52 AM) Nitrite, Urine POC [Negative] Negative (07/03/23 9:52 AM) Leuk Esterase, Urine POC [Negative] Nega tive (07/03/23 9:52 AM) Clarity, Urine POC [Clear] Clear (07/03/23 9:52 AM) U Preg POCT [Negative] Negative (07/03/23 10:21 AM) Vital Signs Most recent to oldest [Reference Range]: 1 Temperature Tympanic [36.6-38.1 Deg C] 3 7.4 Deg C (07/03/23 9:44 AM) Peripheral Pulse Rate [60-100 bpm] 98 bp m (07/03/23 9:44 AM) Blood Pressure [90-140/60-90 mmHg] 99/57 mmHg (07/03/23 9:44 AM) Mean Arterial Pressure, Cuff [65-140 mmH g] 71 mmHg (07/03/23 9:44 AM) Social History Social History Type Response Tobacco Never tobacco user, smokeless tobacco daily Tobacco Use:. Sex Female Hospital Discharge Instructions Patient Education 07/03/2023 09:20:16 Urinary Tract Infection, Adult Urinary Tract Infection, Adult A urinary tract infection (UTI) is an infection of any part of the urinary tract. The urinary tractincludes the kidneys, ureters, bladder, and urethra. These organs make, store, and get rid of urinein the body. An upper UTI affects the ureters and kidneys. A lower UTI affects the bladder and urethra. What are the causes? Most urinary tract infections are caused by bacteria in your genital area around your urethra, where urine leaves your body. These bacteria grow and cause inflammation of your urinary tract. What increases the risk? You are more likely to develop this condition if: ??? You have a urinary catheter that stays in place. ??? You are not able to control when you urinate or have a bowel movement (incontinence). ??? You are female and you: ??? Use a spermicide or diaphragm for control. ??? Have low estrogen levels. ??? Are . ??? You have certain genes that increase your risk. ??? You are sexually active. ??? You take antibiotic medicines. ??? You have a condition that causes your flow of urine to slow down, such as: ??? An enlarged prostate, if you are male. ??? Blockage in your urethra. ??? A kidney stone. ??? A nerve condition that affects your bladder control (neurogenic bladder). ??? Not getting enough to drink, or not urinating often. ??? You have certain medical conditions, such as: ??? Diabetes. ??? A weak disease-fighting system (immunesystem). ??? Sickle cell disease. ??? Gout. ??? Spinal cord injury. What are the signs or symptoms? Symptoms of this condition include: ??? Needing to urinate right away (urgency). ??? Frequent urination. This may include small amounts of urine each time you urinate. ??? Pain or burning with urination. ??? Blood in the urine. ??? Urine that smells bad or unusual. ??? Trouble urinating. ??? Cloudy urine. ??? Vaginal discharge, if you are female. ??? Pain in the abdomen or the lower back. You may also have: ??? Vomiting or a decreased appetite. ??? Confusion. ??? Irritability or tiredness. ??? A fever or chills. ??? Diarrhea. The first symptom in older adults may be confusion. In some cases, they may not have any symptoms until the infection has worsened. How is this diagnosed? This condition is diagnosed based on your medical history and a physical exam. You may also have other tests, including: ??? Urine tests. ??? Blood tests. ??? Tests for STIs (sexually transmitted infections). If you have had more than one UTI, a cystoscopy or imaging studies may be done to determine the cause of the infections. How is this treated? Treatment for this condition includes: ??? Antibiotic medicine. ??? Jupb-pvq-pplhlmb medicines to treat discomfort. ??? Drinking enough water to stay hydrated. If you have frequent infections or have other conditions such as a kidney stone, you may need to see a health care provider who specializes in the urinary tract (urologist). In rare cases, urinary tract infections can cause sepsis. Sepsis is a life- threatening condition that occurs when the body responds to an infection. Sepsis is treated in the hospital with IV antibiotics, fluids, and other medicines. Follow these instructions at home: Medicines ??? Take ialc-gmu-voyjpqk and prescription medicines only as told by your health care provider. ??? If you were prescribed an antibiotic medicine, take it as told by your health care provider. Donot stop using the antibiotic even if you start to feel better. General instructions ??? Make sure you: ??? Empty your bladder often and completely. Do not hold urine for long periods of time. ??? Empty your bladder after sex. ??? Wipe from front to back after urinating or having a bowel movement if you are female. Use each tissue only one time when you wipe. ??? Drink enough fluid to keep your urine pale yellow. ??? Keep all follow-up visits. This is important. Contact a health care provider if: ??? Your symptoms do not get better after 1???2 days. ??? Your symptoms go away and then return. Get help right away if: ??? You have severe pain in your back or your lower abdomen. ??? You have a fever or chills. ??? You have nausea or vomiting. Summary ??? A urinary tract infection (UTI) is an infection of any part of the urinary tract, which includes the kidneys, ureters, bladder, and urethra. ??? Most urinary tract infections are caused by bacteria in your genital area. ??? Treatment for this condition often includes antibiotic medicines. ??? If you were prescribed an antibiotic medicine, take it as told by your health care provider. Donot stop using the antibiotic even if you start to feel better. ??? Keep all follow-up visits. This is important. This information is not intended to replace advice given to you by your health care provider. Make sure you discuss any questions you have with your health care provider. Document Revised: 09/08/2020 Document Reviewed: 09/08/2020 [employer] Patient Education ?? 2022 [employer]. Physician Outpatient Note * Phil Costello APRN: PERFORM Event Display: Office Clinic Note Physician Authored Date: [id number] JOSE ROBERTO BALBUENA :2005 Age:18 years Sex:Female Visit Date:07/03/2023 Primary Care Physician: MELVA WATTS APRN Chief Complaint burning while urinating, nausea, back pain, worried for a UTI. she [facility] told her to take a medication but she notes that its really hard on her stomach so she is herenow to get a different medication. symptoms for 3 days. History of Present Illness Here for concerns of??UTI. ??Reports??3 days ago started with??dysuria, urinary frequency, nausea, suprapubic??discomfort.?? Sexually active??with current partner,??receives??Depo injection,??denies concerns??for STIs.?? Denies history of kidney or bladder stones. ??Generally treated for UTI??few times a year,??symptoms feel similar. ??States she does not well tolerate most antibiotics, usually given??fosfomycin??as one-time dose which is effective. ??Went to a different urgent care clinic, wasgiven cephalexin,??reports??significant stomach discomfort, felt quite ill, and vomited??after only1 dose.?? Denies fever, lightheadedness, dyspnea, palpitations, upper abdominal discomfort, flank pain, hematuria. Review of Systems A complete 10-point review of systems was reviewed and is otherwise unremarkable except as noted above. Physical Exam Vitals & Measurements T:??37.4?C ??(Tympanic)?? HR:??98??(Peripheral)?? BP:??99/57?? SpO2:??100%?? General: Alert and oriented,??No??acute distress Neck: Supple,?No??lymphadenopathy Lungs:??Clear to auscultation?? Respiration:??Non-Labored Heart:?Normal? rate,?Regular??rhythm,?No??murmur Abdomen: Soft, mild suprapubic??tenderness, non-distended,??no??flank pain Skin: Skin is warm, dry and pink,?No??rashes Psychiatric: Cooperative, appropriate mood and affect Medical Decision Making: Urine dip??is relatively unremarkable here today.?? Will send urine culture to the lab. ??Urine hCGis negative today. ??Yesterday??was seen??for UTI symptoms at a different urgent care clinic, reports urine dip??looks more suspicious of UTI, believes culture was sent??to the lab.?? Was given course of cephalexin which she says??she did not tolerate well at all.?? Generally treated by her PCP with single dose of fosfomycin,??denies??having diarrhea or history of C. difficile. ??No??treat with fosfomycin, advised to discard remaining??cephalexin.?? Return for worsening or unresolving symptoms. Assessment/Plan 1.??Cystitis??N30.90 Patient Instructions Complete single dose of fosfomycin antibiotic.?? Discard other antibiotics you were given. ?? Return for worsening or unresolving symptoms or if you develop any other concerns. Patient Education Urinary Tract Infection, Adult Problem List/Past Medical History Ongoing Amenorrhea Anxiety [...] Test Result Date/Time Method of Collect POC cc 07/03/2023 09:52 EDT Specimen Color POC Yellow 07/03/2023 09:52 EDT Clarity, Urine POC Clear 07/03/2023 09:52 EDT Glucose, Urine POC Negative 07/03/2023 09:52 EDT Bilirubin, Urine POC Small 07/03/2023 09:52 EDT Ketones, Urine POC Negative 07/03/2023 09:52 EDT Specific [place], Ur POC 1.030 07/03/2023 09:52 EDT pH, Urine POC 5.50 07/03/2023 09:52 EDT Protein, Urine POC Trace 07/03/2023 09:52 EDT Urobilinogen, Urine POC 0.2 07/03/2023 09:52 EDT Nitrite, Urine POC Negative 07/03/2023 09:52 EDT Blood, Urine POC Negative 07/03/2023 09:52 EDT Leuk Esterase, Urine POC Negative 07/03/2023 09:52 EDT U Preg POCT Negative 07/03/2023 10:21 EDT Electronically Signed on 07/04/2023 08:05 EDT Phil Costello APRN Outpatient Summary note * Phil Costello APRN: PERFORM Event Display: Ambulatory Patient Summary Authored Date: [id number] JOSE ROBERTO BALBUENA Elly :2005 Age:18 years Sex:Female Visit Date:07/03/2023 Primary Care Physician: MELVA WATTS APRN Ambulatory Visit Instructions We would like to thank you for allowing us to assist you with your healthcare needs. The following includes patient education materials and information regarding your injury/illness. Your Next Steps Instructions From Your Care Team Complete single dose of fosfomycin antibiotic.?? Discard other antibiotics you were given. ?? Return for worsening or unresolving symptoms or if you develop any other concerns. Scheduled Future Appointments Friday 11:00 AM EDT ?? With: KEREN Mcclain Where: [facility] Otolaryngology Status: Confirmed Medications What How Much When Why Instructions New fosfomycin (Fosfomycin Tromethamine 3 g oral granule for reconstitution) 1 Each Oral (given by mouth) Once Pickup at [facility] #[id number] Unchanged albuterol (Albuterol (Eqv-ProAir HFA) 90 mcg/ inh inhalation aerosol) 2 Puffs Inhale (breathe in) Every 6 hours URI with cough and congestion Duration: 30 Days Unchanged medroxyPROGESTERone (Depo-Provera Contraceptive 150 mg/ mL intramuscular suspension) 1 Unknown ?? Unchanged ondansetron (ondansetron 4 mg oral tablet, disintegrating) 1 tab Oral (given by mouth) 3 times a day Influenza-like illness Pharmacy Information [facility] #[id number]: [address] [place], [place] [id number] [phone] Your Summary Your Diagnosis Cystitis Problems Ongoing - Any problem that you are currently receiving treatment for. Amenorrhea Anxiety Decrease in appetite Epigastric pain Lipoma of abdominal wall Loss of taste Major depression, single episode Menometrorrhagia Nausea Patient encounter status Outstanding Tests .Urinalysis POCT Tests Performed Test Name Test Result Date/Time Method of Collect POC cc 07/03/2023 09:52 EDT Specimen Color POC Yellow 07/03/2023 09:52 EDT Clarity, Urine POC Clear 07/03/2023 09:52 EDT Glucose, Urine POC Negative 07/03/2023 09:52 EDT Bilirubin, Urine POC Small 07/03/2023 09:52 EDT Ketones, Urine POC Negative 07/03/2023 09:52 EDT Specific [place], Ur POC 1.030 07/03/2023 09:52 EDT pH, Urine POC 5.50 07/03/2023 09:52 EDT Protein, Urine POC Trace 07/03/2023 09:52 EDT Urobilinogen, Urine POC 0.2 07/03/2023 09:52 EDT Nitrite, Urine POC Negative 07/03/2023 09:52 EDT Blood, Urine POC Negative 07/03/2023 09:52 EDT Leuk Esterase, Urine POC Negative 07/03/2023 09:52 EDT Your Care Team Attending Physician - Phil Costello APRN Primary Care Physician - MELVA WATTS APRN Discharge Vitals Temperature??(Tympanic) 99.3 ??F (37.4 ??C) Heart Rate??(Peripheral) 98 Blood Pressure?? 99/57?? SpO2?? 100% Allergies No Known Allergies No Known Medication Allergies Education Materials Urinary Tract Infection, Adult A urinary tract infection (UTI) is an infection of any part of the urinary tract. The urinary tractincludes the kidneys, ureters, bladder, and urethra. These organs make, store, and get rid of urinein the body. An upper UTI affects the ureters and kidneys. A lower UTI affects the bladder and urethra. What are the causes? Most urinary tract infections are caused by bacteria in your genital area around your urethra, where urine leaves your body. These bacteria grow and cause inflammation of your urinary tract. What increases the risk? You are more likely to develop this condition if: ? You have a urinary catheter that stays in place. ? You are not able to control when you urinate or have a bowel movement (incontinence). ? You are female and you: ? Use a spermicide or diaphragm for control. ? Have low estrogen levels. ? Are . ? You have certain genes that increase your risk. ? You are sexually active. ? You take antibiotic medicines. ? You have a condition that causes your flow of urine to slow down, such as: ? An enlarged prostate, if you are male. ? Blockage in your urethra. ? A kidney stone. ? A nerve condition that affects your bladder control (neurogenic bladder). ? Not getting enough to drink, or not urinating often. ? You have certain medical conditions, such as: ? Diabetes. ? A weak disease-fighting system (immunesystem). ? Sickle cell disease. ? Gout. ? Spinal cord injury. What are the signs or symptoms? Symptoms of this condition include: ? Needing to urinate right away (urgency). ? Frequent urination. This may include small amounts of urine each time you urinate. ? Pain or burning with urination. ? Blood in the urine. ? Urine that smells bad or unusual. ? Trouble urinating. ? Cloudy urine. ? Vaginal discharge, if you are female. ? Pain in the abdomen or the lower back. You may also have: ? Vomiting or a decreased appetite. ? Confusion. ? Irritability or tiredness. ? A fever or chills. ? Diarrhea. The first symptom in older adults may be confusion. In some cases, they may not have any symptoms until the infection has worsened. How is this diagnosed? This condition is diagnosed based on your medical history and a physical exam. You may also have other tests, including: ? Urine tests. ? Blood tests. ? Tests for STIs (sexually transmitted infections). If you have had more than one UTI, a cystoscopy or imaging studies may be done to determine the cause of the infections. How is this treated? Treatment for this condition includes: ? Antibiotic medicine. ? Rbye-der-bcptooh medicines to treat discomfort. ? Drinking enough water to stay hydrated. If you have frequent infections or have other conditions such as a kidney stone, you may need to see a health care provider who specializes in the urinary tract (urologist). In rare cases, urinary tract infections can cause sepsis. Sepsis is a life- threatening condition that occurs when the body responds to an infection. Sepsis is treated in the hospital with IV antibiotics, fluids, and other medicines. Follow these instructions at home: Medicines ? Take yzxj-aod-flnmktq and prescription medicines only as told by your health care provider. ? If you were prescribed an antibiotic medicine, take it as told by your health care provider. Do notstop using the antibiotic even if you start to feel better. General instructions ? Make sure you: ? Empty your bladder often and completely. Do not hold urine for long periods of time. ? Empty your bladder after sex. ? Wipe from front to back after urinating or having a bowel movement if you are female. Use each tissue only one time when you wipe. ? Drink enough fluid to keep your urine pale yellow. ? Keep all follow-up visits. This is important. Contact a health care provider if: ? Your symptoms do not get better after 1???2 days. ? Your symptoms go away and then return. Get help right away if: ? You have severe pain in your back or your lower abdomen. ? You have a fever or chills. ? You have nausea or vomiting. Summary ? A urinary tract infection (UTI) is an infection of any part of the urinary tract, which includes the kidneys, ureters, bladder, and urethra. ? Most urinary tract infections are caused by bacteria in your genital area. ? Treatment for this condition often includes antibiotic medicines. ? If you were prescribed an antibiotic medicine, take it as told by your health care provider. Do notstop using the antibiotic even if you start to feel better. ? Keep all follow-up visits. This is important. This information is not intended to replace advice given to you by your health care provider. Make sure you discuss any questions you have with your health care provider. Document Revised: 09/08/2020 Document Reviewed: 09/08/2020 [employer] Patient Education ?? 2022 [employer] Electronically Signed on: 07/03/2023 10:21 EDTSigned by:VINI Patient Care team information Care Team Personnel Name: MELVA WATTS APRN Position: No Access Member Role: Primary Care Physician Address: Address: [facility] [address] [place], [place] [address] Name: Krystal Kurtz APRN Position: Physician Member Role: Nurse Practitioner Address: Address: [address] [facility] [place] [address]- Care Team Related Persons Name: FAIZA BALBUENA Address: Home Name: ALVARO BALBUENA Address: [address] [place], [place] [id number] Name: CAROLINA BALBUENA Address: [facility]
--- OUTSIDE RECORDS SUMMARY | 2024-02-03 12:35 | XMS_ITS | Continuity of Care Document ---
Author Organization [facility] Ambulatory Clinics Address [address] [place] [address] Care Team Providers Care Station Engineer Main Line Name Role Phone MELVA WATTS APRN Primary Care Physician [phone] Encounter [facility]BR [id number] Date(s): 08/12/23 - 08/12/23 [facility] Ambulatory Clinics [address] [place] [address]- Encounter Diagnosis Viral syndrome(Discharge Diagnosis) - 08/12/23 Viral infection, unspecified(Final) - Discharge Disposition: Home or Self Care Attending Physician: Ayla Hopper APRN Allergies, Adverse Reactions, Alerts No Known Allergies Assessment and Plan Extracted from: Title:Office Visit Note Author:Elly Mccartney PRN Date:08/12/23 1.??Viral syndrome??B34.9 Future Appointments Future Scheduled Tests Laboratory* Urine [...] hr, # 8.5 g, 0 Refill(s), Pharmacy: [facility] #[id number], 162, cm, 02/25/23 11:58:00 EST, Height, 42, kg, 03/16/23 18:01:00 EST, Weight Dosing Start Date: 03/17/23 Stop Date: 04/16/23 Status: Ordered Depo-Provera Contraceptive 150 mg/mL intramuscular suspension 1 Unknown, 0 Refill(s) Start Date: 11/29/21 Status: Ordered Fosfomycin Tromethamine 3 g oral granule for reconstitution 3 g = 1 EA, Oral, Once, # 1 packets, 0 Refill(s), Pharmacy: [facility] #[id number], 162.56, cm, 04/12/23 8:47:00 EST, Height, 42.46, kg, 06/10/23 19:28:00 EDT, Weight Dosing Start Date: 07/03/23 Status: Ordered ondansetron 4 mg oral tablet, disintegrating 4 mg = 1 tab, Oral, TID, # 10 tab, 0 Refill(s), Pharmacy: [facility] #[id number], 162, cm, 02/25/23 11:58:00 EST, Height, 40.8, kg, 02/25/23 12:04:00 EST, Weight Dosing Start Date: 02/25/23 Status: Ordered penicillin V potassium 250 mg/5 mL oral liquid 500 mg = 10 mL, Oral, every 8 hr, # 300 mL, 0 Refill(s), Pharmacy: [facility] #[id number], 162.56, cm, 04/12/23 8:47:00 EST, Height, 42.64, [...] 1 Temperature Tympanic [36.6-38.1 Deg C] 3 7.5 Deg C (08/12/23 9:35 AM) Peripheral Pulse Rate [60-100 bpm] 126 b pm *HI* (08/12/23 9:35 AM) Respiratory Rate [12-24 br/min] 22 br/mi n (08/12/23 9:35 AM) Blood Pressure [90-140/60-90 mmHg] 133/7 5mmHg (08/12/23 9:35 AM) Mean Arterial Pressure, Cuff [65-140 mmH g] 94 mmHg (08/12/23 9:35 AM) Weight 42 kg (08/12/23 9:35 AM) Weight Measured (lbs) 92.594 lb (08/12/23 9:35 AM) Weight Dosing 42.000 kg (08/12/23 9:35 AM) Weight Percentile 0.56 1 (08/12/23 9:35 AM) 1Result Comment: ^~:!Percentile Source -[facility] Social History Social History Type Response Tobacco Never tobacco user, smokeless tobacco daily Tobacco Use:. Sex Female Hospital Discharge Instructions Patient Education 08/12/2023 09:13:31 Pharyngitis Pharyngitis Pharyngitis is inflammation of the throat (pharynx). It is a very common cause of sore throat. Pharyngitis can be caused by a bacteria, but it is usually caused by a virus. Most cases of pharyngitis get better on their own without treatment. What are the causes? This condition may be caused by: ??? Infection by viruses (viral). Viral pharyngitis spreads easily from person to person (is contagious) through coughing, sneezing, and sharing of personal items or utensils such as cups, forks, spoons, and toothbrushes. ??? Infection by bacteria (bacterial). Bacterial pharyngitis may be spread by touching the nose or face after coming in contact with the bacteria, or through close contact, such as kissing. ??? Allergies. Allergies can cause buildup of mucus in the throat (post-nasal drip), leading to inflammation and irritation. Allergies can also cause blocked nasal passages, forcing breathing throughthe mouth, which dries and irritates the throat. What increases the risk? You are more likely to develop this condition if: ??? You are 5???24 years old. ??? You are exposed to crowded environments such as daycare, school, or dormitory living. ??? You live in a cold climate. ??? You have a weakened disease-fighting (immune) system. What are the signs or symptoms? Symptoms of this condition vary by the cause. Common symptoms of this condition include: ??? Sore throat. ??? Fatigue. ??? Low-grade fever. ??? Stuffy nose (nasal congestion) and cough. ??? Headache. Other symptoms may include: ??? Glands in the neck (lymph nodes) that are swollen. ??? Skin rashes. ??? Plaque-like film on the throat or tonsils. This is often a symptom of bacterial pharyngitis. ??? Vomiting. ??? Red, itchy eyes (conjunctivitis). ??? Loss of appetite. ??? Joint pain and muscle aches. ??? Enlarged tonsils. How is this diagnosed? This condition may be diagnosed based on your medical history and a physical exam. Your health careprovider will ask you questions about your illness and your symptoms. A swab of your throat may be done to check for bacteria (rapid strep test). Other lab tests may also be done, depending on the suspected cause, but these are rare. How is this treated? Many times, treatment is not needed for this condition. Pharyngitis usually gets better in 3???4 days without treatment. Bacterial pharyngitis may be treated with antibiotic medicines. Follow these instructions at home: Medicines ??? Take skop-ooe-bdomibe and prescription medicines only as told by your health care provider. ??? If you were prescribed an antibiotic medicine, take it as told by your health care provider. Donot stop taking the antibiotic even if you start to feel better. ??? Use throat sprays to soothe your throat as told by your health care provider. ??? Children can get pharyngitis. Do not give your child aspirin because of the association with Shelley's syndrome. Managing pain To help with pain, try: ??? Sipping warm liquids, such as broth, herbal tea, or warm water. ??? Eating or drinking cold or frozen liquids, such as frozen ice pops. ??? Gargling with a mixture of salt and water 3???4 times a day or as needed. To make salt water, completely dissolve ?1 tsp (3???6 g) of salt in 1 cup (237 mL) of warm water. ??? Sucking on hard candy or throat lozenges. ??? Putting a cool-mist humidifier in your bedroom at night to moisten the air. ??? Sitting in the bathroom with the door closed for 5???10 minutes while you run hot water in the shower. General instructions ??? Do not use any products that contain nicotine or tobacco. These products include cigarettes, chewing tobacco, and vaping devices, such as e-cigarettes. If you need help quitting, ask your health care provider. ??? Rest as told by your health care provider. ??? Drink enough fluid to keep your urine pale yellow. How is this prevented? To help prevent becoming infected or spreading infection: ??? Wash your hands often with soap and water for at least 20 seconds. If soap and water are not available, use hand supervisor chemical. ??? Do not touch your eyes, nose, or mouth with unwashed hands, and wash hands after touching theseareas. ??? Do not share cups or eating utensils. ??? Avoid close contact with people who are sick. Contact a health care provider if: ??? You have large, tender lumps in your neck. ??? You have a rash. ??? You cough up green, yellow-brown, or bloody mucus. Get help right away if: ??? Your neck becomes stiff. ??? You drool or are unable to swallow liquids. ??? You cannot drink or take medicines without vomiting. ??? You have severe pain that does not go away, even after you take medicine. ??? You have trouble breathing, and it is not caused by a stuffy nose. ??? You have new pain and swelling in your joints such as the knees, ankles, wrists, or elbows. These symptoms may represent a serious problem that is an emergency. Do not wait to see if the symptoms will go away. Get medical help right away. Call your local emergency services (911 in the [place] Do not drive yourself to the hospital. Summary ??? Pharyngitis is redness, pain, and swelling (inflammation) of the throat (pharynx). ??? While pharyngitis can be caused by a bacteria, the most common causes are viral. ??? Most cases of pharyngitis get better on their own without treatment. ??? Bacterial pharyngitis is treated with antibiotic medicines. This information is not intended to replace advice given to you by your health care provider. Make sure you discuss any questions you have with your health care provider. Document Revised: 04/25/2021 Document Reviewed: 04/25/2021 [employer] Patient Education ?? 2022 [employer]. Physician Outpatient Note * Ayla Hopper APRN: PERFORM Event Display: Office Clinic Note Physician Authored Date: [id number] JOSE ROBERTO BALBUENA :2005 Age:18 years Sex:Female Visit Date:08/12/2023 Primary Care Physician: MELVA WATTS APRN Chief Complaint was here on friday, was here for throat pain, now has bad cough, stomach pain and itchy red eyes,was given peniclin RX, still taking. History of Present Illness Patient is a 18-year-old female who presents today with a chief complaint??of sore throat, cough, occasional abdominal pain??and itching or red eyes.?? Evaluated in the urgent care a few days ago??diagnosed with presumed strep, provided Pen-Vee K??for antibiotic coverage. ??She reports that??she??stopped taking the antibiotics yesterday.?She reports that over the past few days she had increased cough and congestion,??itchy eyes and drainage. ??She went to the emergency department last night??was diagnosed with conjunctivitis, viral syndrome and provided erythromycin ointment Review of Systems see hpi Physical Exam Vitals & Measurements T:??37.5?C ??(Tympanic)?? HR:??126??(Peripheral)?? RR:??22?? BP:??133/75?? SpO2:??100%?? WT:??0.56??(Percentile)?? WT:??42??kg?? Skin: No concerning lesions in examined areas. Head: Normal cephalic without trauma or injury. Neck: Supple, nontender, normal range of motion Eye: Pupils reactive. ??Conjunctiva injected, positive exudate. sclera nonicteric. ??No swelling, obvious foreign bodies. ??Extraocular movement intact. ENT ear: Normal external, canal clear, TMs normal bilaterally. ??Nose: No discharge, normal mucosa,no swelling. ??Sinuses: Nontender to percussion. ??Oropharynx??erythematous, Cardiovascular: Regular rate and rhythm. ??No murmur, rubs, or gallops. Respiratory: Clear to auscultation bilaterally. ??No wheezes, rales, rhonchi. Chest: No deformity. ??Nontender, normal inspiration and expiration. Abdomen: Soft, nontender. ??No peritoneal signs, rigidity, guarding. ??No CVA tenderness. Medical Decision Making: Patient was evaluated for??viral syndrome, sore throat and??eye irritation. ??She has been evaluated??for these complaints previously, she was started on Pen-Vee K for strep which she was not??taking. ??I encouraged her to take these medications as instructed and for its full dose. ??I recommended that she??use the erythromycin ointment provided to her last evening for conjunctivitis. ??I did discuss and educate her on viral syndrome lasting 7 to 10 days??and to monitor for any worsening signs or symptoms. Assessment/Plan 1.??Viral syndrome??B34.9 Patient Instructions Normal ibuprofen for pain or fever, continue your antibiotics as prescribed. ??Use the erythromycinointment that was provided to you last evening.? Fluids and rest and follow-up with your primarycare for lack of improvement Patient Education Pharyngitis Problem List/Past Medical History Ongoing Amenorrhea Anxiety [...] Comments : Unit: Unknown Electronically Signed on 08/12/2023 18:09 EDT Ayla Hopper APRN Outpatient Summary note * Ayla Hopper APRN: PERFORM Event Display: Ambulatory Patient Summary Authored Date: [id number] JOSE ROBERTO BALBUENA :2005 Age:18 years Sex:Female Visit Date:08/12/2023 Primary Care Physician: MELVA WATTS APRN Ambulatory Visit Instructions We would like to thank you for allowing us to assist you with your healthcare needs. The following includes patient education materials and information regarding your injury/illness. Your Next Steps Instructions From Your Care Team Normal ibuprofen for pain or fever, continue your antibiotics as prescribed. ??Use the erythromycinointment that was provided to you last evening.? Fluids and rest and follow-up with your primarycare for lack of improvement Scheduled Future Appointments Friday 3:00 PM EDT ?? Where: [facility] Status: Confirmed Medications What How Much When Why Instructions Unchanged albuterol (Albuterol (Eqv-ProAir HFA) 90 mcg/ [...] Every 8 hours Pharyngitis Duration: 10 Days Your Summary Problems Ongoing - Any problem that you are currently receiving treatment for. Amenorrhea Anxiety Decrease in appetite Epigastric pain Lipoma of abdominal wall Loss of taste Major depression, single episode Menometrorrhagia Nausea Patient encounter status Tonsillitis Your Care Team Attending Physician - Ayla Hopper APRN Primary Care Physician - STEFANIE KIRBY, MELVA Discharge Vitals Temperature??(Tympanic) 99.5 ??F (37.5 ??C) Heart Rate??(Peripheral) 126 Respiratory Rate?? 22 Blood Pressure?? 133/75?? SpO2?? 100% Weight?? 92.61 lb (42 kg) Allergies No Known Allergies No Known Medication Allergies Education Materials Pharyngitis Pharyngitis is inflammation of the throat (pharynx). It is a very common cause of sore throat. Pharyngitis can be caused by a bacteria, but it is usually caused by a virus. Most cases of pharyngitis get better on their own without treatment. What are the causes? This condition may be caused by: ? Infection by viruses (viral). Viral pharyngitis spreads easily from person to person (is contagious) through coughing, sneezing, and sharing of personal items or utensils such as cups, forks, spoons,and toothbrushes. ? Infection by bacteria (bacterial). Bacterial pharyngitis may be spread by touching the nose or faceafter coming in contact with the bacteria, or through close contact, such as kissing. ? Allergies. Allergies can cause buildup of mucus in the throat (post-nasal drip), leading to inflammation and irritation. Allergies can also cause blocked nasal passages, forcing breathing through themouth, which dries and irritates the throat. What increases the risk? You are more likely to develop this condition if: ? You are 5???24 years old. ? You are exposed to crowded environments such as daycare, school, or dormitory living. ? You live in a cold climate. ? You have a weakened disease-fighting (immune) system. What are the signs or symptoms? Symptoms of this condition vary by the cause. Common symptoms of this condition include: ? Sore throat. ? Fatigue. ? Low-grade fever. ? Stuffy nose (nasal congestion) and cough. ? Headache. Other symptoms may include: ? Glands in the neck (lymph nodes) that are swollen. ? Skin rashes. ? Plaque-like film on the throat or tonsils. This is often a symptom of bacterial pharyngitis. ? Vomiting. ? Red, itchy eyes (conjunctivitis). ? Loss of appetite. ? Joint pain and muscle aches. ? Enlarged tonsils. How is this diagnosed? This condition may be diagnosed based on your medical history and a physical exam. Your health careprovider will ask you questions about your illness and your symptoms. A swab of your throat may be done to check for bacteria (rapid strep test). Other lab tests may also be done, depending on the suspected cause, but these are rare. How is this treated? Many times, treatment is not needed for this condition. Pharyngitis usually gets better in 3???4 days without treatment. Bacterial pharyngitis may be treated with antibiotic medicines. Follow these instructions at home: Medicines ? Take qnbf-swm-trcwjly and prescription medicines only as told by your health care provider. ? If you were prescribed an antibiotic medicine, take it as told by your health care provider. Do notstop taking the antibiotic even if you start to feel better. ? Use throat sprays to soothe your throat as told by your health care provider. ? Children can get pharyngitis. Do not give your child aspirin because of the association with Shelley'ssyndrome. Managing pain To help with pain, try: ? Sipping warm liquids, such as broth, herbal tea, or warm water. ? Eating or drinking cold or frozen liquids, such as frozen ice pops. ? Gargling with a mixture of salt and water 3???4 times a day or as needed. To make salt water, completely dissolve ?1 tsp (3???6 g) of salt in 1 cup (237 mL) of warm water. ? Sucking on hard candy or throat lozenges. ? Putting a cool-mist humidifier in your bedroom at night to moisten the air. ? Sitting in the bathroom with the door closed for 5???10 minutes while you run hot water in the shower. General instructions ? Do not use any products that contain nicotine or tobacco. These products include cigarettes, chewing tobacco, and vaping devices, such as e-cigarettes. If you need help quitting, ask your health careprovider. ? Rest as told by your health care provider. ? Drink enough fluid to keep your urine pale yellow. How is this prevented? To help prevent becoming infected or spreading infection: ? Wash your hands often with soap and water for at least 20 seconds. If soap and water are not available, use hand supervisor chemical. ? Do not touch your eyes, nose, or mouth with unwashed hands, and wash hands after touching these areas. ? Do not share cups or eating utensils. ? Avoid close contact with people who are sick. Contact a health care provider if: ? You have large, tender lumps in your neck. ? You have a rash. ? You cough up green, yellow-brown, or bloody mucus. Get help right away if: ? Your neck becomes stiff. ? You drool or are unable to swallow liquids. ? You cannot drink or take medicines without vomiting. ? You have severe pain that does not go away, even after you take medicine. ? You have trouble breathing, and it is not caused by a stuffy nose. ? You have new pain and swelling in your joints such as the knees, ankles, wrists, or elbows. These symptoms may represent a serious problem that is an emergency. Do not wait to see if the symptoms will go away. Get medical help right away. Call your local emergency services (911 in the [place] Do not drive yourself to the hospital. Summary ? Pharyngitis is redness, pain, and swelling (inflammation) of the throat (pharynx). ? While pharyngitis can be caused by a bacteria, the most common causes are viral. ? Most cases of pharyngitis get better on their own without treatment. ? Bacterial pharyngitis is treated with antibiotic medicines. This information is not intended to replace advice given to you by your health care provider. Make sure you discuss any questions you have with your health care provider. Document Revised: 04/25/2021 Document Reviewed: 04/25/2021 [employer] Patient Education ?? 2022 [employer] Electronically Signed on: 08/12/2023 10:14 EDTSigned by:[facility] Patient Care team information Care Team Personnel Name: MELVA WATTS APRN Position: No Access Member Role: Primary Care Physician Address: Address: [facility] [address] [place] [address]- Name: Krystal Kurtz APRN Position: Physician Member Role: Nurse Practitioner Address: Address: [address] [place] [address] [address] [place] [address]- Care Team Related Persons Name: FAIZA BALBUENA
--- OUTSIDE RECORDS SUMMARY | 2024-02-03 12:35 | XMS_ITS | Continuity of Care Document ---
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 Name Role Phone MELVA WATTS APRN Primary Care Physician Encounter [facility] NBR [id number] Date(s): 06/10/23 - 06/10/23 [facility] Ambulatory Clinics [address] [place], [place] [address] Encounter Diagnosis Unspecified sexually transmitted disease(Final) - STI in female(Discharge Diagnosis) - 06/10/23 Discharge Disposition: Home or Self Care Attending Physician: Alya Hopper APRN Admitting Physician: Ayla Hopper APRN Allergies, Adverse Reactions, Alerts No Known Allergies Assessment and Plan Extracted from: Title:Office Visit Note Author:Elly Mccartney Date:06/10/23 1.??STI in female??A64 Orders: Chlamydia trachomatis and Neisseria gonorrhoeae (GeneXpert), Vaginal, Routine Collect, 06/10/23 20:00:00 EDT, Once by [facility]ARGENT, Nurse collect, Print Label, Dysuria Future Appointments Future Scheduled Tests Laboratory* Urine [...] hr, # 8.5 g, 0 Refill(s), Pharmacy: [facility] #[id number], 162, cm, 02/25/23 11:58:00 EST, Height, 42, kg, 03/16/23 18:01:00 EST, Weight Dosing Start Date: 03/17/23 Stop Date: 04/16/23 Status: Ordered Depo-Provera Contraceptive 150 mg/mL intramuscular suspension 1 Unknown, 0 Refill(s) Start Date: 11/29/21 Status: Ordered fosfomycin 3 g oral granule for reconstitution 3 g = 1 EA, Oral, Once, # 1 packets, 0 Refill(s), Pharmacy: [facility] #[id number], 162, cm, 08/15/22 18:08:00 EDT, Height/Length Dosing, 42.64, kg, 01/15/23 20:27:00 EST, Weight Dosing Start Date: 01/15/23 Status: Ordered fosfomycin 3 g oral granule for reconstitution 3 g = 1 EA, Oral, Once, # 1 packets, 0 Refill(s), Pharmacy: [facility] #[id number], 162.56, cm, 04/12/23 8:47:00 EST, Height, 41.73, kg, 04/22/23 17:44:00 EDT, Weight Dosing Start Date: 04/22/23 Status: Ordered fosfomycin 3 g oral granule for reconstitution 3 g = 1 EA, Oral, Once, # 1 packets, 0 Refill(s), Pharmacy: [facility] #[id number], 162.56, cm, 04/12/23 8:47:00 EST, Height, 41.73, kg, 04/22/23 17:44:00 EDT, Weight Dosing Start Date: 04/22/23 Status: Ordered fosfomycin 3 g oral granule for reconstitution 3 g = 1 EA, Oral, Once, # 1 packets, 0 Refill(s), Pharmacy: [facility] #[id number], 162.56, cm, 04/12/23 8:47:00 EST, Height, 41.73, kg, 04/22/23 17:44:00 EDT, Weight Dosing Start Date: 04/22/23 Status: Ordered ondansetron 4 mg oral tablet, disintegrating 4 mg = 1 tab, Oral, TID, # 10 tab, 0 Refill(s), Pharmacy: [facility] #[id number], 162, cm, 02/25/23 11:58:00 EST, Height, 40.8, kg, 02/25/23 12:04:00 EST, Weight Dosing Start Date: 02/25/23 Status: Ordered penicillin V potassium 250 mg/5 mL oral liquid 500 mg = 10 mL, Oral, every 8 hr, # 300 mL, 0 Refill(s), [id number], 162.56, cm, 04/12/23 8:47:00 EST, Height, 41.73, kg, 04/22/23 17:44:00 EDT, Weight Dosing Start Date: 05/26/23 Stop Date: 06/05/23 Status: Ordered Tessalon Perles 100 mg oral capsule 100 mg = 1 cap, Oral, TID, PRN as needed for cough, # 21 cap, 0 Refill(s), Pharmacy: [facility] #[id number], 162, cm, 02/25/23 11:58:00 EST, Height, 42, [...] [36.6-38.1 Deg C] 3 7.2 Deg C (06/10/23 7:23 PM) Peripheral Pulse Rate [60-100 bpm] 113 b pm *HI* (06/10/23 7:23 PM) Blood Pressure [90-140/60-90 mmHg] 104/5 7mmHg (06/10/23 7:23 PM) Mean Arterial Pressure, Cuff [65-140 mmH g] 73 mmHg (06/10/23 7:23 PM) Weight 42.46 kg (06/10/23 7:23 PM) Weight Measured (lbs) 93.608 lb (06/10/23 7:23 PM) Weight Dosing 42.460 kg (06/10/23 7:23 PM) Weight Percentile 0.78 1 (06/10/23 7:23 PM) 1Result Comment: ^~:!Percentile Source -[facility] Social History Social History Type Response Tobacco Never tobacco user, smokeless tobacco daily Tobacco Use:. Sex Female Physician Outpatient Note * Ayla Hopper APRN: PERFORM Event Display: Office Clinic Note Physician Authored Date: [id number] JOSE ROBERTO BALBUENA :2005 Age:18 years Sex:Female Visit Date:06/10/2023 Primary Care Physician: MELVA WATTS APRN Chief Complaint last friday was tested for std and yeast and bacterial infection, ??she notes that she is asymptomatic. her and her partner have been monogumus for about a year History of Present Illness Patient is a 18-year-old female who presents today??with chief complaint of STI. ??She reports she was evaluated at a local urgent care??a few days ago, treated??with Flagyl for bacterial vaginosis. ??She was contacted today??reporting a positive gonorrhea test. ??She would like retesting for confirmation.?States she is asymptomatic Review of Systems see hpi Physical Exam Vitals & Measurements T:??37.2?C ??(Tympanic)?? HR:??113??(Peripheral)?? BP:??104/57?? SpO2:??100%?? WT:??42.46??kg?? WT:??0.78??(Percentile)?? Pain Score:??0?? General: Well-appearing, no acute distress, alert and oriented x3. Skin: No concerning lesions in examined areas. Head: Normal cephalic without trauma or injury. Neck: Supple, nontender, normal range of motion Eye: Pupils reactive. ??Conjunctiva clear. Sclera nonicteric. ??No swelling, obvious foreign bodies. ??Extraocular movement intact. Cardiovascular: Regular rate and rhythm. ??No murmur, rubs, or gallops. Respiratory: Clear to auscultation bilaterally. ??No wheezes, rales, rhonchi. Chest: No deformity. ??Nontender, normal inspiration and expiration. Abdomen: Soft, nontender. ??No peritoneal signs, rigidity, guarding. ??No CVA tenderness. ?? Medical Decision Making: Patient wishes to have confirmation test for??gonorrhea and chlamydia. ??Vaginal swab was obtained.??She understands that the test??can take up to 24 hours to return. ??Treatment based on??culture findings, per her request Assessment/Plan 1.??STI in female??A64 Orders: Chlamydia trachomatis and Neisseria gonorrhoeae (GeneXpert), Vaginal, Routine Collect, 06/10/23 20:00:00 EDT, Once by [facility], Nurse collect, Print Label, Dysuria Problem List/Past Medical History Ongoing Amenorrhea Anxiety [...] mg= 10 mL, Oral, every 8 hr Tessalon Perles 100 mg oral capsule, 100 [...] Comments : Unit: Unknown Electronically Signed on 06/10/23 08:25 PM Ayla Hopper APRN Patient Care team information Care Team Personnel Name: MELVA WATTS APRN Position: No Access Member Role: Primary Care Physician Address: Address: [facility] [address] [facility], [place] [address] Name: Krystal Kurtz APRN Position: Physician Member Role: Nurse Practitioner Address: Address: [address] [place], [place] [address] Care Team Related Persons Name: FAIZA BALBUENA Name: ALVARO BALBUENA Address: [address] [place], [place] [id number] Name: CAROLINA BALBUENA Address: [facility]
--- OUTSIDE RECORDS SUMMARY | 2024-02-03 12:35 | XMS_ITS | Continuity of Care Document ---
Author Organization [facility] Address [address] [place] [address] Care Team Providers Care [employer] Clerk Name Role Phone Barbara Orourke MD Primary Care Physician [phone] Encounter [facility] NBR [id number] Date(s): 02/25/23 - 02/25/[address] [address] Encounter Diagnosis Influenza-like illness(Discharge Diagnosis) - 02/25/23 Discharge Disposition: Home or Self Care Attending [...] Once, # 1 packets, 0 Refill(s), Pharmacy: [facility] #[id number], 162, cm, 08/15/22 18:08:00 EDT, Height/Length Dosing, 42.64, kg, 01/15/23 20:27:00 EST, Weight Dosing Start Date: 01/15/23 Status: Ordered ondansetron 4 mg oral tablet, disintegrating 4 mg = 1 tab, Oral, TID, # 10 tab, 0 Refill(s), Pharmacy: [facility] #[id number], 162, cm, 02/25/23 11:58:00 EST, Height, 40.8, kg, 02/25/23 12:04:00 EST, Weight Dosing Start Date: 02/25/23 Status: Ordered Mental Status 02/25/23 Eye Opening Response Belkis Spontaneous ly Best [...] to oldest [Reference Range]: 1 2 3 4 Temperature Temporal Artery [36-38 Deg C] 37.3 Deg C (02/25/23 11:45 AM) Peripheral Pulse Rate [60-100 bpm] 98 bpm (02/25/23 2:06 PM) 114 bpm *HI* (02/25/23 1:34 PM) 121 bpm *HI* (02/25/23 12:25 PM) 121 bpm *HI* (02/25/23 12:25 PM) Respiratory Rate [12-24 br/min] 16 br/min (02/25/23 11:45 AM) Blood Pressure [90-140/60-90 mmHg] 101/60mmHg (02/25/23 11:45 AM) Mean Arterial Pressure, Cuff [70-110 mmHg] 74 mmHg (02/25/23 11:45 AM) Weight 40.8 kg (02/25/23 11:45 AM) Weight Dosing 40.800 kg (02/25/23 11:45 AM) Height 162 cm (02/25/23 11:45 AM) Body Mass Index 15.55 kg/m2 (02/25/23 11:45 AM) Body Mass Index Percentile 0.05 1 (02/25/23 11:45 AM) Height/Length Percentile 42.24 2 (02/25/23 11:45 AM) Weight Percentile 0.24 3 (02/25/23 11:45 AM) 1Result Comment: ^~:!Percentile Source -[facility] 2Result Comment: ^~:!Percentile Source -[facility] 3Result Comment: ^~:!Percentile Source -[facility] Social History Social History Type Response Tobacco Never tobacco user, smokeless tobacco daily Tobacco Use:. Sex Female Hospital Discharge Instructions Patient Education 02/25/2023 12:56:21 Viral Illness, Adult Viral Illness, Adult Viruses are tiny germs that can get into a person's body and cause illness. There are many different types of viruses, and they cause many types of illness. Viral illnesses can range from mild to severe. They can affect various parts of the body. Short-term conditions that are caused by a virus include colds and the flu (influenza). Long-term conditions that are caused by a virus include herpes, shingles, and HIV (human immunodeficiency virus) infection. A few viruses have been linked to certain cancers. What are the causes? Many types of viruses can cause illness. Viruses invade cells in your body, multiply, and cause theinfected cells to work abnormally or . When these cells , they release more of the virus. When this happens, you develop symptoms of the illness, and the virus continues to spread to other cells. If the virus takes over the function of the cell, it can cause the cell to divide and grow out ofcontrol. This happens when a virus causes cancer. Different viruses get into the body in different ways. You can get a virus by: ??? Swallowing food or water that has come in contact with the virus (is contaminated). ??? Breathing in droplets that have been coughed or sneezed into the air by an infected person. ??? Touching a surface that has been contaminated with the virus and then touching your eyes, nose,or mouth. ??? Being bitten by an insect or animal that carries the virus. ??? Having sexual contact with a person who is infected with the virus. ??? Being exposed to blood or fluids that contain the virus, either through an open cut or during atransfusion. If a virus enters your body, your body's defense system (immune system) will try to fight the virus. You may be at higher risk for a viral illness if your immune system is weak. What are the signs or symptoms? You may have these symptoms, depending on the type of virus and the location of the cells that it invades: ??? Cold and flu viruses: ??? Fever. ??? Headache. ??? Sore throat. ??? Muscle aches. ??? Stuffy nose (nasal congestion). ??? Cough. ??? Digestive system (gastrointestinal) viruses: ??? Fever. ??? Pain in the abdomen. ??? Nausea. ??? Diarrhea. ??? Liver viruses (hepatitis): ??? Loss of appetite. ??? Tiredness. ??? Skin or the white parts of your eyes turning yellow (jaundice). ??? Brain and spinal cord viruses: ??? Fever. ??? Headache. ??? Stiff neck. ??? Nausea and vomiting. ??? Confusion or sleepiness. ??? Skin viruses: ??? Warts. ??? Itching. ??? Rash. ??? Sexually transmitted viruses: ??? Discharge. ??? Swelling. ??? Redness. ??? Rash. How is this diagnosed? This condition may be diagnosed based on one or more of the following: ??? Symptoms. ??? Medical history. ??? Physical exam. ??? Blood test, sample of mucus from your lungs (sputum sample), stool sample, or a swab of body fluids or a skin sore (lesion). How is this treated? Viruses can be hard to treat because they live within cells. Antibiotic medicines do not treat viruses because these medicines do not get inside cells. Treatment for a viral illness may include: ??? Resting and drinking plenty of fluids. ??? Medicines to relieve symptoms. These can include nqfd-vwk-ylaewcb medicine for pain and fever, medicines for cough or congestion, and medicines to relieve diarrhea. ??? Antiviral medicines. These medicines are available only for certain types of viruses. Some viral illnesses can be prevented with vaccinations. A common example is the flu shot. Follow these instructions at home: Medicines ??? Take mdlt-dwz-cqwntww and prescription medicines only as told by your health care provider. ??? If you were prescribed an antiviral medicine, take it as told by your health care provider. Do not stop taking the antiviral even if you start to feel better. ??? Be aware of when antibiotics are needed and when they are not needed. Antibiotics do not treat viruses. You may get an antibiotic if your health care provider thinks that you may have, or are at risk for, a bacterial infection and you have a viral infection. ??? Do not ask for an antibiotic prescription if you have been diagnosed with a viral illness. Antibiotics will not make your illness go away faster. ??? Frequently taking antibiotics when they are not needed can lead to antibiotic resistance. When this develops, the medicine no longer works against the bacteria that it normally fights. General instructions ??? Drink enough fluids to keep your urine pale yellow. ??? Rest as much as possible. ??? Return to your normal activities as told by your health care provider. Ask your health care provider what activities are safe for you. ??? Keep all follow-up visits as told by your health care provider. This is important. How is this prevented? To reduce your risk of viral illness: ??? Wash your hands often with soap and water for at least 20 seconds. If soap and water are not available, use hand integrated circuit ic layout designer. ??? Avoid touching your nose, eyes, and mouth, especially if you have not washed your hands recently. ??? If anyone in your household has a viral infection, clean all household surfaces that may have been in contact with the virus. Use soap and hot water. You may also use bleach that you have added water to (diluted). ??? Stay away from people who are sick with symptoms of a viral infection. ??? Do not share items such as toothbrushes and water bottles with other people. ??? Keep your vaccinations up to date. This includes getting a yearly flu shot. ??? Eat a healthy diet and get plenty of rest. Contact a health care provider if: ??? You have symptoms of a viral illness that do not go away. ??? Your symptoms come back after going away. ??? Your symptoms get worse. Get help right away if you have: ??? Trouble breathing. ??? A severe headache or a stiff neck. ??? Severe vomiting or pain in your abdomen. These symptoms may represent a serious problem that is an emergency. Do not wait to see if the symptoms will go away. Get medical help right away. Call your local emergency services (911 in the [place] Do not drive yourself to the hospital. Summary ??? Viruses are types of germs that can get into a person's body and cause illness. Viral illnessescan range from mild to severe. They can affect various parts of the body. ??? Viruses can be hard to treat. There are medicines to relieve symptoms, and there are some antiviral medicines. ??? If you were prescribed an antiviral medicine, take it as told by your health care provider. Do not stop taking the antiviral even if you start to feel better. ??? Contact a health care provider if you have symptoms of a viral illness that do not go away. This information is not intended to replace advice given to you by your health care provider. Make sure you discuss any questions you have with your health care provider. Document Revised: 06/12/2020 Document Reviewed: 12/07/2019 [email or web address] Patient Education ?? 2022 [employer] Follow Up Care 02/25/2023 11:44:58 With:Barbara Orourke MD Address: [address] [place] [id number] When:1 month Physician Emergency department Note * Lokesh Solorio MD: PERFORM Event Display: ED Note Physician Authored Date: [id number] JOSE ROBERTO BALBUENA :2005 Age:18 years Sex:Female Visit Date:02/25/2023 Primary Care Physician: Barbara Orourke MD Basic Information Time Seen: Lokesh Solorio MD / 02/25/2023 12:28 Chief Complaint Pt c/o sore throat, headache and body aches. Reports her boyfriend has the flu. Does not want streptest. History Of Present Illness: 18-year-old female with no significant past medical history presents the ER complaining of??not feeling well. ??The patient states she started with abrupt symptoms last night including headache, sorethroat, body aches, fevers,??chills, nausea, and fatigue.?? These have been persistent this morning. ??She took some cold and flu medicine last night but no medications this morning. ??She has had decreased oral intake due to the??nausea. ??Her boyfriend currently has flulike symptoms.?? He says hewas tested at an urgent care for flu??which she was told was negative and was told he had some other??flulike virus.?? He is currently improving. Review of Systems: CONSTITUTIONAL:??Positive fevers and chills. EYES:??No change in vision. ENT:. ??No neck pain. CARDIOVASCULAR:??No chest pain, palpitations or passing out episodes. RESPIRATORY:??No shortness of breath or hemoptysis. GI:??No abdominal pain. ??No vomiting or diarrhea. :??No change in urination. SKIN:??No rash. NEUROLOGIC:??No focal numbness or weakness. PSYCHIATRIC:??No suicidal ideation. LYMPH:??No swelling. ?? Review of systems otherwise as stated in HPI Physical Exam Vitals & Measurements T:??37.3?C ??(Temporal Artery)?? HR:??98??(Peripheral)?? RR:??16?? BP:??101/60?? SpO2:??100%?? HT:??162??cm?? HT:??42.24??(Percentile)?? WT:??40.8??kg?? WT:??0.24??(Percentile)?? BMI:??15.55?? BMI:??0.05??(Percentile)?? O2 Therapy:??Room air?? GENERAL:??Awake and alert. ??No acute distress. HEENT:??Normocephalic, atraumatic. ??Mucous membranes are dry. NECK:??Supple. ??Nontender. HEART:??Regular and tachycardic. LUNGS:??Clear to auscultation bilaterally. ??No respiratory distress. ABDOMEN:??Soft, nontender, nondistended. BACK:??Normal to inspection and nontender. EXTREMITIES:??Nontender and without edema. NEUROLOGIC:??Awake, alert, and oriented x3. ??Motor and sensory grossly intact. SKIN:??Warm and dry. VASCULAR:??Radial 2+ bilaterally. Medical Decision Making: Influenza-like illness.?? The patient is afebrile nontoxic-appearing. ??She is tachycardic and has symptoms consistent with influenza-like illness. ??There are multiple viruses endemic in the community currently and her boyfriend has similar symptoms.?? I discussed??viral respiratory??testing with her and she would like to hold off as it would not change??treatment and only at expense which is reasonable.?? I have low suspicion for PE or pneumonia given the above findings.?? She was treated with IV fluids, Toradol, and Zofran and feels improved, taking p.o. fluids. ??Heart rate has improved down to the 90s??and she was felt to be safe for discharge home. ??I have given her prescription for Z ofran and encouraged p.o. fluids, rest, ibuprofen, and Tylenol. ??Follow-up with primary care if not improving in 1 week, return if worse. Procedure No Qualifying Data Assessment/Plan 1.??Influenza-like illness??J11.1 Ordered: ondansetron 4 mg oral tablet, disintegrating, 4 mg = 1 tab, Oral, TID, # 10 tab, 0 Refill(s), Pharmacy: [facility] #[id number], 162, cm, 02/25/23 11:58:00 EST, Height, 40.8, kg, 02/25/23 12:04:00 EST, Weight Dosing ?? Orders: Discharge Patient, 02/25/23 13:57:00 EST, Home Independently Patient Education Viral Illness, Adult Follow Up With When Contact Information Barbara Orourke MD Within 1 month [address] [place] [address] Additional Instructions: Medication Reconciliation New Prescription ondansetron (ondansetron 4 mg oral tablet, disintegrating)1 tab Oral (given by mouth) 3 times a day. Refills: 0. ?? Unchanged fosfomycin (fosfomycin 3 g oral granule [...] Sodium Chloride 0.9%, 1000 mL, Medication Bolus ondansetron, 4 mg, IV Push Toradol, 15 mg, IV Push Allergies No Known Allergies No Known Medication Allergies Social History Alcohol Never Electronic Cigarette/Vaping Electronic Cigarette Use: Use, within last 90 days. Use per Day: 1-25 Inhales/day. Tobacco Never tobacco user, smokeless tobacco daily Tobacco Use:. Electronically Signed on 02/25/23 02:08 PM Lokesh Solorio MD Emergency department Discharge instructions * Lokesh Solorio MD: PERFORM Event Display: ED Discharge Information Authored Date: [id number] JOSE ROBERTO BALBUENA :2005 Age:18 years Sex:Female Visit Date:02/25/2023 Primary Care Physician: Barbara Orourke MD Discharge Instructions We would like to thank you for allowing us to assist you with your healthcare needs. The following includes patient education materials and information regarding your injury/illness. Diagnosis from Today's Visit Influenza-like illness Discharge Vitals Temperature??(Temporal Artery) 99.1 ??F (37.3 ??C) Heart Rate??(Peripheral) 114 Respiratory Rate?? 16 Blood Pressure?? 101/60?? Height?? 63.78 in (162 cm) Weight?? 89.96 lb (40.8 kg) BMI?? 15.55 Allergies No Known Allergies No Known Medication Allergies What to Do Next You Need to Schedule the Following Appointments Follow Up with??Barbara Orourke MD When:??Within 1 month Where: [address] [place] [address] You were treated today on an emergency [...] How Much When Why Instructions Next Dose New ondansetron (ondansetron 4 mg oral tablet, disintegrating) 1 tab Oral (given by mouth) 3 times a day Influenza-like illness Pickup at [facility] #[id number] Unchanged fosfomycin (fosfomycin 3 g oral granule for reconstitution) 1 Each Oral (given by mouth) Once Dysuria Unchanged medroxyPROGESTERone (Depo-Provera Contraceptive 150 mg/ mL intramuscular suspension) 1 Unknown ?? Pharmacy Information [facility] #[id number]: [address], [place] [id number] [phone] Education Materials Viral Illness, Adult Viruses are tiny germs that can get into a person's body and cause illness. There are many different types of viruses, and they cause many types of illness. Viral illnesses can range from mild to severe. They can affect various parts of the body. Short-term conditions that are caused by a virus include colds and the flu (influenza). Long-term conditions that are caused by a virus include herpes, shingles, and HIV (human immunodeficiency virus) infection. A few viruses have been linked to certain cancers. What are the causes? Many types of viruses can cause illness. Viruses invade cells in your body, multiply, and cause theinfected cells to work abnormally or . When these cells , they release more of the virus. When this happens, you develop symptoms of the illness, and the virus continues to spread to other cells. If the virus takes over the function of the cell, it can cause the cell to divide and grow out ofcontrol. This happens when a virus causes cancer. Different viruses get into the body in different ways. You can get a virus by: ? Swallowing food or water that has come in contact with the virus (is contaminated). ? Breathing in droplets that have been coughed or sneezed into the air by an infected person. ? Touching a surface that has been contaminated with the virus and then touching your eyes, nose, or mouth. ? Being bitten by an insect or animal that carries the virus. ? Having sexual contact with a person who is infected with the virus. ? Being exposed to blood or fluids that contain the virus, either through an open cut or during a transfusion. If a virus enters your body, your body's defense system (immune system) will try to fight the virus. You may be at higher risk for a viral illness if your immune system is weak. What are the signs or symptoms? You may have these symptoms, depending on the type of virus and the location of the cells that it invades: ? Cold and flu viruses: ? Fever. ? Headache. ? Sore throat. ? Muscle aches. ? Stuffy nose (nasal congestion). ? Cough. ? Digestive system (gastrointestinal) viruses: ? Fever. ? Pain in the abdomen. ? Nausea. ? Diarrhea. ? Liver viruses (hepatitis): ? Loss of appetite. ? Tiredness. ? Skin or the white parts of your eyes turning yellow (jaundice). ? Brain and spinal cord viruses: ? Fever. ? Headache. ? Stiff neck. ? Nausea and vomiting. ? Confusion or sleepiness. ? Skin viruses: ? Warts. ? Itching. ? Rash. ? Sexually transmitted viruses: ? Discharge. ? Swelling. ? Redness. ? Rash. How is this diagnosed? This condition may be diagnosed based on one or more of the following: ? Symptoms. ? Medical history. ? Physical exam. ? Blood test, sample of mucus from your lungs (sputum sample), stool sample, or a swab of body fluidsor a skin sore (lesion). How is this treated? Viruses can be hard to treat because they live within cells. Antibiotic medicines do not treat viruses because these medicines do not get inside cells. Treatment for a viral illness may include: ? Resting and drinking plenty of fluids. ? Medicines to relieve symptoms. These can include thla-zyy-xnrvjeu medicine for pain and fever, medicines for cough or congestion, and medicines to relieve diarrhea. ? Antiviral medicines. These medicines are available only for certain types of viruses. Some viral illnesses can be prevented with vaccinations. A common example is the flu shot. Follow these instructions at home: Medicines ? Take llzl-zar-yohkgov and prescription medicines only as told by your health care provider. ? If you were prescribed an antiviral medicine, take it as told by your health care provider. Do not stop taking the antiviral even if you start to feel better. ? Be aware of when antibiotics are needed and when they are not needed. Antibiotics do not treat viruses. You may get an antibiotic if your health care provider thinks that you may have, or are at riskfor, a bacterial infection and you have a viral infection. ? Do not ask for an antibiotic prescription if you have been diagnosed with a viral illness. Antibiotics will not make your illness go away faster. ? Frequently taking antibiotics when they are not needed can lead to antibiotic resistance. When thisdevelops, the medicine no longer works against the bacteria that it normally fights. General instructions ? Drink enough fluids to keep your urine pale yellow. ? Rest as much as possible. ? Return to your normal activities as told by your health care provider. Ask your health care provider what activities are safe for you. ? Keep all follow-up visits as told by your health care provider. This is important. How is this prevented? To reduce your risk of viral illness: ? Wash your hands often with soap and water for at least 20 seconds. If soap and water are not available, use hand integrated circuit ic layout designer. ? Avoid touching your nose, eyes, and mouth, especially if you have not washed your hands recently. ? If anyone in your household has a viral infection, clean all household surfaces that may have been in contact with the virus. Use soap and hot water. You may also use bleach that you have added waterto (diluted). ? Stay away from people who are sick with symptoms of a viral infection. ? Do not share items such as toothbrushes and water bottles with other people. ? Keep your vaccinations up to date. This includes getting a yearly flu shot. ? Eat a healthy diet and get plenty of rest. Contact a health care provider if: ? You have symptoms of a viral illness that do not go away. ? Your symptoms come back after going away. ? Your symptoms get worse. Get help right away if you have: ? Trouble breathing. ? A severe headache or a stiff neck. ? Severe vomiting or pain in your abdomen. These symptoms may represent a serious problem that is an emergency. Do not wait to see if the symptoms will go away. Get medical help right away. Call your local emergency services (911 in the [place] Do not drive yourself to the hospital. Summary ? Viruses are types of germs that can get into a person's body and cause illness. Viral illnesses canrange from mild to severe. They can affect various parts of the body. ? Viruses can be hard to treat. There are medicines to relieve symptoms, and there are some antiviralmedicines. ? If you were prescribed an antiviral medicine, take it as told by your health care provider. Do not stop taking the antiviral even if you start to feel better. ? Contact a health care provider if you have symptoms of a viral illness that do not go away. This information is not intended to replace advice given to you by your health care provider. Make sure you discuss any questions you have with your health care provider. Document Revised: 06/12/2020 Document Reviewed: 12/07/2019 [employer] Patient Education ?? 2022 [employer] Tests Performed Medications and Immunizations Administered Given Sodium Chloride 0.9%, 1000 mL, Medication Bolus ondansetron, 4 mg, IV Push Toradol, 15 mg, IV Push Patient/Fork Truck Operator Signature Patient Name:JOSE ROBERTO BALBUENA I have received this information and my questions have been answered. Patient/Fork Truck Operator Name: Patient/Fork Truck Operator Signature: Relationship to Patient: Witness Name/Signature: Date: Electronically Signed on: 02/25/2023 13:57 ESTSigned by: Patient Care team information Care Team Personnel Name: Barbara Orourke MD Position: No Access Member Role: Primary Care Physician Address: Address: [address] [place] [phone] Name: Krystal Kurtz APRN Position: No Access Member Role: Nurse Practitioner Address: Address: [address] [place] [address] [address] [place] [address]- Care Team Related Persons Name: FAIZA BALBUENA Name: ALVARO BALBUENA Address: Home [address] [place] [address] [address] [place], [place] [id number] Name: CAROLINA BALBUENA Address: [facility]
--- OUTSIDE RECORDS SUMMARY | 2024-02-03 12:35 | XMS_ITS | Continuity of Care Document ---
Author Organization [facility] Address [address] [place] [address] Care Team Providers Care Breastfeeding Program Coordinator Name Role Phone MELVA WATTS APRN Primary Care Physician Encounter [facility] FIN NBR [id number] Date(s): 08/27/23 - 08/27/[address] [address]- Encounter Diagnosis Noninfective gastroenteritis and colitis, unspecified(Final) - Diarrhea, unspecified(Final) - Discharge Disposition: Home or Self [...] hr, # 8.5 g, 0 Refill(s), [facility]acy: [facility] #[id number], 162, cm, 02/25/23 11:58:00 EST, Height, 42, kg, 03/16/23 18:01:00 EST, Weight Dosing Start Date: 03/17/23 Stop Date: 04/16/23 Status: Ordered Depo-Provera Contraceptive 150 mg/mL intramuscular suspension 1 Unknown, 0 Refill(s) Start Date: 11/29/21 Status: Ordered ondansetron 4 mg oral tablet, disintegrating 4 mg = 1 tab, Oral, TID, # 10 tab, 0 Refill(s), Pharmacy: [facility] #[id number], 162, cm, 02/25/23 11:58:00 EST, Height, 40.8, kg, 02/25/23 12:04:00 EST, Weight Dosing Start Date: 02/25/23 Status: Ordered penicillin V potassium 250 mg/5 mL oral liquid 500 mg = 10 mL, Oral, every 8 hr, # 300 mL, 0 Refill(s), Pharmacy: [facility] #[id number], 162.56, cm, 04/12/23 8:47:00 EST, Height, 42.64, [...] encounter status Confirmed Active Tonsillitis Confirmed Active Results Laboratory List Name Date GI Panel ([facility]) 08/27/23 Most recent to oldest [Reference Range]: 1 Adenovirus F 40/41 GIP-[facility] [Not Detect ed] Not Detected (08/27/23 6:50 PM) Astrovirus [facility]IP[facility] [Not Detected] Not Detected (08/27/23 6:50 PM) Cyclospora cayetanensis [facility]IP[facility] [Not D etected] Not Detected (08/27/23 6:50 PM) Clostridioides difficile toxin A/B -BFir [Not Detected] Not Detected (08/27/23 6:50 PM) Campylobacter [facility]IP[facility] [Not Detected] N ot Detected (08/27/23 6:50 PM) Cryptosporidium [facility]IP[facility] [Not Detected] Not Detected (08/27/23 6:50 PM) Entamoeba histolytica [facility]IP[facility] [Not Det ected] Not Detected (08/27/23 6:50 PM) Enteroaggregative E. coli [facility]IP[facility] [Not Detected] Not Detected (08/27/23 6:50 PM) Enteropathogenic E. coli [facility]IP[facility] [Not Detected] Not Detected (08/27/23 6:50 PM) Enterotoxige E. coli LT/ST [facility] [No t Detected] Not Detected (08/27/23 6:50 PM) Giardia lamblia [facility]IP[facility] [Not Detected] Not Detected (08/27/23 6:50 PM) Norovirus GI/GII [facility] [Not Detected ] Not Detected (08/27/23 6:50 PM) Plesiomonas shigelloides [facility]IP[facility] [Not Detected] Not Detected (08/27/23 6:50 PM) Rotavirus A GIP-BioF [Not Detected] Not Detected (08/27/23 6:50 PM) Salmonella GIP-[facility] [Not Detected] Not Detected (08/27/23 6:50 PM) Sapovirus [facility]IP[facility] [Not Detected] Not D etected (08/27/23 6:50 PM) Shiga-toxin1/2-prod E.coli [facility]IP[facility] [No t Detected] Not Detected (08/27/23 6:50 PM) Shigella/Enteroinv E. coli [facility]IP[facility] [No t Detected] Not Detected (08/27/23 6:50 PM) Vibrio cholerae [facility]IP[facility] [Not Detected] Not Detected (08/27/23 6:50 PM) Vibrio species [facility]IP[facility] [Not Detected] Not Detected (08/27/23 6:50 PM) Yersinia enterocolitica [facility]IP[facility] [Not D etected] Not Detected (08/27/23 6:50 PM) Social History Social History Type Response Tobacco Never tobacco user, smokeless tobacco daily Tobacco Use:. Sex Female Patient Care team information Care Team Personnel Name: MELVA WATTS APRN Position: No Access Member Role: Primary Care Physician Address: Address: [facility] [address] [place] [address]- Name: Krystal Kurtz APRN Position: Physician Member Role: Nurse Practitioner Address: Address: [address] [place] [address] [address] [place], [place] [address] Care Team Related Persons Name: FIAZA BALBUENA
--- OUTSIDE RECORDS SUMMARY | 2024-02-03 12:35 | XMS_ITS | Continuity of Care Document ---
Author Organization [facility] Address [address] [place] [id number] Care Team Providers Care Phytopathology Teacher Name Role Phone MELVA WATTS APRN Primary Care Physician Encounter [facility] FIN NBR [id number] Date(s): 08/28/23 - 08/28/[address] [address]- Encounter Diagnosis Noninfective gastroenteritis and colitis, unspecified(Final) - Discharge Disposition: Home or Self Care Attending Physician: Hiwot Pelaez PA-C Admitting Physician: Hiwot Pelaez PA-C Referring Physician: Hiwot Pelaez PA-C Allergies, Adverse Reactions, [...] hr, # 8.5 g, 0 Refill(s), Pharmacy: [facility] #[id number], 162, cm, 02/25/23 11:58:00 EST, Height, 42, kg, 03/16/23 18:01:00 EST, Weight Dosing Start Date: 03/17/23 Stop Date: 04/16/23 Status: Ordered Depo-Provera Contraceptive 150 mg/mL intramuscular suspension 1 Unknown, 0 Refill(s) Start Date: 11/29/21 Status: Ordered ondansetron 4 mg oral tablet, disintegrating 4 mg = 1 tab, Oral, TID, # 10 tab, 0 Refill(s), Pharmacy: [facility] #[id number], 162, cm, 02/25/23 11:58:00 EST, Height, 40.8, kg, 02/25/23 12:04:00 EST, Weight Dosing Start Date: 02/25/23 Status: Ordered penicillin V potassium 250 mg/5 mL oral liquid 500 mg = 10 mL, Oral, every 8 hr, # 300 mL, 0 Refill(s), Pharmacy: [facility] #[id number], 162.56, cm, 04/12/23 8:47:00 EST, Height, 42.64, [...] Confirmed Active Results Laboratory List Name Date C-Reactive Protein 08/28/23 CBC w/ Diff 08/28/23 Comprehensive Metabolic Panel (CMP) 08/27 Sedimentation Rate (ESR) 08/28/23 Automated Diff 08/28/23 Most recent to oldest [Reference Range]: 1 WBC [4.8-10.8 K/mcL] 3.9 K/mcL *LOW* (08/28/23 8:35 AM) RBC [4.20-5.40 Million/mcL] 4.55 Million /mcL (08/28/23 8:35 AM) Neutro Auto [42.2-75.2 %] 60.8 % (08/28/23 8:35 AM) Lymph Auto [20.5-51.1 %] 24.0 % (08/28/23 8:35 AM) [place] Auto [1.7-9.3 %] 12.4 % *HI* (08/28/23 8:35 AM) Basophil Auto [0.0-0.8 %] 0.6 % (08/28/23 8:35 AM) BUN [7-25 mg/dL] 12 mg/dL (08/28/23 8:35 AM) Glucose Level [70-109 mg/dL] 78 mg/dL (08/28/23 8:35 AM) Potassium Level [3.5-5.1 mmol/L] 4.2 mmo l/L (08/28/23 8:35 AM) Baso Absolute [0.0-0.2 K/mcL] 0.0 K/mcL (08/28/23 8:35 AM) MCV [81.0-99.0 fL] 85.9 fL (08/28/23 8:35 AM) CRP [<=10.0 mg/L] <1.0 mg/L (08/28/23 8:35 AM) AST [13-39 IntlUnit/L] 18 IntlUnit/L (08/28/23 8:35 AM) ALT [7-52 IntlUnit/L] 15 IntlUnit/L (08/28/23 8:35 AM) MCHC [32.0-37.0 g/dL] 33.7 g/dL (08/28/23 8:35 AM) Osmolality [275-295 mOsm/kg] 276 mOsm/kg (08/28/23 8:35 AM) Sodium Level [136-145 mmol/L] 139 mmol/L (08/28/23 8:35 AM) Lymph Absolute [1.2-3.4 K/mcL] 0.9 K/mcL *LOW* (08/28/23 8:35 AM) Hct [37.0-47.0 %] 39.0 % (08/28/23 8:35 AM) Calcium Level [8.6-10.3 mg/dL] 9.6 mg/dL (08/28/23 8:35 AM) [place] Absolute [0.1-0.6 K/mcL] 0.5 K/mcL (08/28/23 8:35 AM) Albumin Level [3.5-5.7 g/dL] 4.6 g/dL (08/28/23 8:35 AM) Protein Total [6.4-8.9 g/dL] 7.1 g/dL (08/28/23 8:35 AM) MCH [27.0-31.0 pg] 28.9 pg (08/28/23 8:35 AM) Neutro Absolute [1.4-6.5 K/mcL] 2.3 K/mc L (08/28/23 8:35 AM) Bilirubin Total [0.3-1.0 mg/dL] 0.4 mg/d L (08/28/23 8:35 AM) Hgb [12.0-16.0 g/dL] 13.1 g/dL (08/28/23 8:35 AM) Alk Phos [34-104 IntlUnit/L] 70 IntlUnit /L (08/28/23 8:35 AM) MPV [7.4-10.4 fL] 8.3 fL (08/28/23 8:35 AM) Platelets [130-400 K/mcL] 281 K/mcL (08/28/23 8:35 AM) CO2 [21-31 mmol/L] 24 mmol/L (08/28/23 8:35 AM) Eos Absolute [0.0-0.2 K/mcL] 0.1 K/mcL (08/28/23 8:35 AM) Chloride Level [98-107 mmol/L] 107 mmol/ L (08/28/23 8:35 AM) RDW-CV [11.5-14.5 %] 12.7 % (08/28/23 8:35 AM) A/G Ratio [1.0-2.5 g/dL] 1.8 g/dL (08/28/23 8:35 AM) BUN/Creat Ratio [8.0-20.0] 20.0 (08/28/23 8:35 AM) Globulin [2.3-3.5 g/dL] 2.5 g/dL (08/28/23 8:35 AM) Creatinine Level [0.60-1.20 mg/dL] 0.60 mg/dL (08/28/23 8:35 AM) Anion Gap [3.0-12.0] 8.0 (08/28/23 8:35 AM) Eos, Auto [0.00-3.00 %] 2.20 % (08/28/23 8:35 AM) eGFR CKD-EPI [>=60 mL/min/1.73 m2] 133 m L/min/1.73 m2 (08/28/23 8:35 AM) ESR, Westergren [0-20 mm/hr] 2 mm/hr (08/28/23 8:35 AM) Social History Social History Type Response Tobacco Never tobacco user, smokeless tobacco daily Tobacco Use:. Sex Female Patient Care team information Care Team Personnel Name: MELVA WATTS APRN Position: No Access Member Role: Primary Care Physician Address: Address: [facility] [address] [place] [address]- Name: Krystal Kurtz APRN Position: Physician Member Role: Nurse Practitioner Address: Address: [address] [facility] [address] [place] [address]- Care Team Related Persons Name: FAIZA BALBUENA
--- OUTSIDE RECORDS SUMMARY | 2024-02-03 12:35 | XMS_ITS | Continuity of Care Document ---
Author Organization [facility] Address [address] [place] [address] Care Team Providers Care Senior Resident Care Director Name Role Phone JAMES ELIZABETH Primary Care Physician Encounter [facility] FIN NBR [id number] Date(s): 12/24/23 - 12/24/[address] [address]- Encounter Diagnosis Vaginitis(Discharge Diagnosis) - 12/24/23 Discharge Disposition: Home or Self Care Attending [...] 45 g, 0 Refill(s), Pharmacy: [facility] #[id number], 162, cm, 12/15/23 22:27:00 EST, Height, 45, kg, 12/15/23 22:29:00 EST, Weight Dosing Start Date: 12/24/23 Status: Ordered ondansetron 4 mg oral tablet, disintegrating 4 mg = 1 tab, Oral, TID, # 10 tab, 0 Refill(s), [facility]acy: [facility] #[id number], 162, cm, 02/25/23 11:58:00 EST, Height, 40.8, [...] Xpress MVP (GeneXpert) (Vaginitis PCR Pa adam) 12/24/23 Most recent to oldest [Reference Range]: 1 Bacterial Vaginosis MVP (GeneXpert) [Neg ative] Negative (12/24/23 12:00 PM) Elvira glab-krus MVP (GeneXpert) [Not D etected] Not Detected (12/24/23 12:00 PM) Elvira group MVP (GeneXpert) [Not Detec khari] Not Detected (12/24/23 12:00 PM) Trichomonas vaginalis MVP (GeneXpert) [N ot Detected] Not Detected (12/24/23 12:00 PM) Social History Social History Type Response Tobacco Never tobacco user, smokeless tobacco daily Tobacco Use:. Sex Female Sex Representation Female (finding) Patient Care team information Care Team Personnel Name: Krystal Kurtz APRN Position: Physician Member Role: Nurse Practitioner Address: [address] [facility] [address] [place] [address]- Name: JAMES ELIZABETH Position: No Access Member Role: Primary Care Physician Address: [facility] [address] [place] [address]- Care Team Related Persons Name: FAIZA BALBUENA Insurance Providers Guarantor name: JOSE ROBERTO BALBUENA Health Plan Information #: 1 Payer: [place] Member Number: [id number] Policy Number: NA Health Plan Information #: 2 Payer: [place] Member Number: [id number] Policy Number: NA Health Plan Information #: 3 Payer: [place] Member Number: [id number] Policy Number: NA
--- OUTSIDE RECORDS SUMMARY | 2024-02-03 12:35 | XMS_ITS | Continuity of Care Document ---
Author Organization [facility] Address [address] [place] [id number] Care Team Providers Care Community Outreach Director Name Role Phone JAMES ELIZABETH Primary Care Physician Encounter [facility] FIN NBR [id number] Date(s): 01/21/24 - 01/21/[address] [address] [place] Encounter Diagnosis Palpitations(Discharge Diagnosis) - 01/21/24 Discharge Disposition: Home f/u External Provider Attending Physician: Dima Phoenix DO Admitting Physician: Dima Phoenix DO Allergies, Adverse Reactions, Alerts Substance Criticality Severity Reaction Reaction Severity Status penicillin High criticality Moderate Rash Ac tive Assessment and Plan Extracted from: Title:ED Provider Note Author:KEREN Mello Date:01/21/24 Assessment/Plan 1.??Palpitations??R00.2 ??Patient discharged home. ??Remains asymptomatic while in the emergency department.?? No acute events on telemetry. ??Will be sent home on Holter monitor with close PCP follow-up. ??Strict return precautions understood. Ordered: CV Holter Monitor, 01/21/24 14:10:00 EST, Routine, Reason: Palpitations, Symptomatic, Stop date and time 01/21/24 14:10:00 EST, Palpitations, ORD_SET_REQ_DT_RANGE, [employer] Person Id Discharge Patient, 01/21/24 14:28:00 EST, Home Independently ?? Patient Education Palpitations Follow Up With When Contact Information JAMES ELIZABETH Within [address] [phone] ?? Additional Instructions: Future Scheduled Tests Radiology* US Transvaginal Non-OB [...] 21 tab, 0 Refill(s), [id number], 162, cm, 12/15/23 22:27:00 EST, Height, 45, kg, 12/15/23 22:29:00 EST, Weight Dosing Start Date: 01/06/24 Stop Date: 01/12/24 Status: Ordered metroNIDAZOLE 0.75% vaginal gel with applicator INSERT 1 APPLICATORFUL VAGINALLY TWICE DAILY FOR 5 DAYS Start Date: 12/01/23 Status: Ordered Miconazole 7 vaginal cream with applicator 1 alice, Vaginal, every night at bedtime, # 45 g, 0 Refill(s), [facility]: [facility][id number], 162, cm, 12/15/23 22:27:00 EST, Height, 45, kg, 12/15/23 22:29:00 EST, Weight Dosing Start Date: 12/24/23 Status: Ordered ondansetron 4 mg oral tablet, disintegrating 4 mg = 1 tab, Oral, TID, # 10 tab, 0 Refill(s), [facility]: [id number], 162, cm, 02/25/23 11:58:00 EST, Height, 40.8, kg, 02/25/23 12:04:00 EST, Weight Dosing Start Date: 02/25/23 Status: Ordered Zithromax Z-Nicholas 250 mg oral tablet 1 packets, Oral, Daily, Take 2 tablets on day 1 and 1 tablet days 2 through 5 with a quantity of 6., # 6 tab, 0 Refill(s), [facility]: [id number], 162, cm, 12/15/23 22:27:00 EST, Height, 45, [...] Confirmed Active Results Laboratory List Name Date Beta hCG Quantitative 01/21/24 CBC w/ Diff 01/21/24 Comprehensive Metabolic Panel (CMP) 01/10 03/05 Automated Diff 01/21/24 Most recent to oldest [Reference Range]: 1 Estimated Creatinine Clearance 128.52 mL /min 1 (01/21/24 1:57 PM) WBC [4.8-10.8 K/mcL] 4.6 K/mcL *LOW* (01/21/24 1:28 PM) RBC [4.20-5.40 Million/mcL] 4.45 Million /mcL (01/21/24 1:28 PM) Neutro Auto [42.2-75.2 %] 60.6 % (01/21/24 1:28 PM) Lymph Auto [20.5-51.1 %] 26.3 % (01/21/24 1:28 PM) [place] Auto [1.7-9.3 %] 8.5 % (01/21/24 1:28 PM) Basophil Auto [0.0-0.8 %] 1.0 % *HI* (01/21/24 1:28 PM) BUN [7-25 mg/dL] 8 mg/dL (01/21/24 1:28 PM) Glucose Level [70-109 mg/dL] 102 mg/dL (01/21/24 1:28 PM) Potassium Level [3.5-5.1 mmol/L] 3.6 mmo l/L (01/21/24 1:28 PM) Baso Absolute [0.0-0.2 K/mcL] 0.0 K/mcL (01/21/24 1:28 PM) MCV [81.0-99.0 fL] 86.3 fL (01/21/24 1:28 PM) AST [13-39 IntlUnit/L] 15 IntlUnit/L (01/21/24 1:28 PM) ALT [7-52 IntlUnit/L] 9 IntlUnit/L (01/21/24 1:28 PM) MCHC [32.0-37.0 g/dL] 34.0 g/dL (01/21/24 1:28 PM) Osmolality [275-295 mOsm/kg] 278 mOsm/kg (01/21/24 1: PM) Sodium Level [136-145 mmol/L] 140 mmol/L (01/21/24 1: PM) Lymph Absolute [1.2-3.4 K/mcL] 1.2 K/mcL (01/21/24 1: PM) Hct [37.0-47.0 %] 38.4 % (01/21/24 1: PM) Calcium Level [8.6-10.3 mg/dL] 8.7 mg/dL (01/21/24: PM) [place] Absolute [0.1-0.6 K/mcL] 0.4 K/mcL (01/21/24 PM) Albumin Level [3.5-5.7 g/dL] 4.1 g/dL (01/21/24: PM) Protein Total [6.4-8.9 g/dL] 6.2 g/dL *LOW* (01/21/24 1: PM) MCH [27.0-31.0 pg] 29.4 pg (01/21/24 1: PM) Neutro Absolute [1.4-6.5 K/mcL] 2.8 K/mc L (01/21/24 1: PM) Bilirubin Total [0.3-1.0 mg/dL] 0.4 mg/d L (01/21/24: PM) Hgb [12.0-16.0 g/dL] 13.1 g/dL (01/21/24 1:28 PM) Alk Phos [34-104 IntlUnit/L] 55 IntlUnit /L (01/21/24 1:28 PM) MPV [7.4-10.4 fL] 8.5 fL (01/21/24 1:28 PM) Platelets [130-400 K/mcL] 224 K/mcL (01/21/24 1:28 PM) CO2 [21-31 mmol/L] 23 mmol/L (01/21/24 1:28 PM) Eos Absolute [0.0-0.2 K/mcL] 0.2 K/mcL (01/21/24 1:28 PM) Chloride Level [98-107 mmol/L] 110 mmol/ L *HI* (01/21/24 1:28 PM) RDW-CV [11.5-14.5 %] 13.0 % (01/21/24 1:28 PM) A/G Ratio [1.0-2.5 g/dL] 2.0 g/dL (01/21/24 1:28 PM) BUN/Creat Ratio [8.0-20.0] 16.0 (01/21/24 1:28 PM) Globulin [2.3-3.5 g/dL] 2.1 g/dL *LOW* (01/21/24 1:28 PM) Creatinine Level [0.60-1.20 mg/dL] 0.50 mg/dL *LOW* (01/21/24 1:28 PM) Anion Gap [3.0-12.0] 7.0 (01/21/24 1:28 PM) Eos, Auto [0.00-3.00 %] 3.60 % *HI* (01/21/24 1:28 PM) Beta hCG Qnt [<=5.0 mIntlUnit/mL] <0.6 m IntlUnit/mL 2 (01/21/24 1:28 PM) eGFR CKD-EPI [>=60 mL/min/1.73 m2] 138 m L/min/1.73 m2 (01/21/24 1:28 PM) 1Result Comment: Calculated using method: Cockroft-Gault (Actual Weight) 2Interpretive Data: WEEKS POST LMP: APPROXIMATE HCG (mIU/mL) 3-4 Weeks 9-130 4-5 Weeks 75-2600 5-6 Weeks 850-20,800 6-7 Weeks 4,000-100,200 7-12 Weeks 11,500-289,000 12-16 Weeks 18,300-137,000 16-29 Weeks 1,400-53,000 29-41 Weeks 940-60,000 Vital Signs Most recent to oldest [Reference Range]: 1 Temperature Temporal Artery [36-38 Deg C ] 36.7 Deg C (01/21/24 12:52 PM) Heart Rate Monitored [60-100 bpm] 107 bp m *HI* (01/21/24 12:52 PM) Respiratory Rate [12-24 br/min] 18 br/mi n (01/21/24 12:52 PM) Blood Pressure [90-120/60-80 mmHg] 105/7 0mmHg (01/21/24 12:52 PM) Mean Arterial Pressure, Cuff [65-140 mmH g] 82 mmHg (01/21/24 12:52 PM) Weight 45.36 kg (01/21/24 12:52 PM) Weight Dosing 45.360 kg (01/21/24 12:52 PM) Height 162.56 cm (01/21/24 12:52 PM) Body Mass Index 17.17 kg/m2 (01/21/24 12:52 PM) Social History Social History Type Response Tobacco Never tobacco user, smokeless tobacco daily Tobacco Use:. Sex Female Sex Representation Female (finding) Hospital Discharge Instructions Patient Education 01/21/2024 13:28:23 Palpitations Palpitations Palpitations are feelings that your heartbeat is irregular or is faster than normal. It may feel like your heart is fluttering or skipping a beat. Palpitations may be caused by many things, includingsmoking, caffeine, alcohol, stress, and certain medicines or drugs. Most causes of palpitations arenot serious. However, some palpitations can be a sign of a serious problem. Further tests and a thorough medicalhistory will be done to find the cause of your palpitations. Your provider may order tests such as an ECG, labs, an echocardiogram, or an ambulatory continuous ECG monitor. Follow these instructions at home: Pay attention to any changes in your symptoms. Let your health care provider know about them. Take these actions to help manage your symptoms: Eating and drinking Follow instructions from your health care provider about eating or drinking restrictions. You may need to avoid foods and drinks that may cause palpitations. These may include: ??? Caffeinated coffee, tea, soft drinks, and energy drinks. ??? Chocolate. ??? Alcohol. ??? Diet pills. Lifestyle ??? Take steps to reduce your stress and anxiety. Things that can help you relax include: ??? Yoga. ??? Mind-body activities, such as deep breathing, meditation, or using words and images to create positive thoughts (guided imagery). ??? Physical activity, such as swimming, jogging, or walking. Tell your health care provider if your palpitations increase with activity. If you have chest pain or shortness of breath with activity, do not continue the activity until you are seen by your health care provider. ??? Biofeedback. This is a method that helps you learn to use your mind to control things in your body, such as your heartbeat. ??? Get plenty of rest and sleep. Keep a regular bed time. ??? Do not use drugs, including cocaine or ecstasy. Do not use marijuana. ??? Do not use any products that contain nicotine or tobacco. These products include cigarettes, chewing tobacco, and vaping devices, such as e-cigarettes. If you need help quitting, ask your health care provider. General instructions ??? Take dcuk-etj-ddcgtyh and prescription medicines only as told by your health care provider. ??? Keep all follow-up visits. This is important. These may include visits for further testing if palpitations do not go away or get worse. Contact a health care provider if: ??? You continue to have a fast or irregular heartbeat for a long period of time. ??? You notice that your palpitations occur more often. Get help right away if: ??? You have chest pain or shortness of breath. ??? You have a severe headache. ??? You feel dizzy or you faint. These symptoms may represent a serious problem that is an emergency. Do not wait to see if the symptoms will go away. Get medical help right away. Call your local emergency services (911 in the [place] Do not drive yourself to the hospital. Summary ??? Palpitations are feelings that your heartbeat is irregular or is faster than normal. It may feel like your heart is fluttering or skipping a beat. ??? Palpitations may be caused by many things, including smoking, caffeine, alcohol, stress, certain medicines, and drugs. ??? Further tests and a thorough medical history may be done to find the cause of your palpitations. ??? Get help right away if you faint or have chest pain, shortness of breath, severe headache, or dizziness. This information is not intended to replace advice given to you by your health care provider. Make sure you discuss any questions you have with your health care provider. Document Revised: 06/20/2021 Document Reviewed: 06/20/2021 [employer] Patient Education ?? 2022 [employer]. Follow Up Care 01/21/2024 12:45:56 With:JAMES ELIZABETH Address: [address] [phone] When:1 week Physician Emergency department Note * KEREN Mello: PERFORM Event Display: ED Note Physician Authored Date: [id number] BALBUENA, JOSE ROBERTO Sanabria :2005 Age:19 years Sex:Female Visit Date:01/21/2024 Primary Care Physician: JAMES ELIZABETH Basic Information Time Seen: KEREN Mello / 01/21/2024 12:50 Chief Complaint Patient in with complaints of nausea, dizziness and palpitations for two days. ??Came into ED with [employer] energy drink. ??No chance of . History Of Present Illness: This is a 19-year-old??female here for concerns of palpitations. ??She has been feeling these for about a week. ??She states that mainly is when she is??going from sitting to standing she feels lightheaded??diaphoretic and feels these palpitations transiently.?? She is experienced this in the past with a workup done by her primary care including a Holter monitor??workup at that point was all reassuring.?She is not experiencing any cough or hemoptysis. ??No chest pain. ??No recent respiratory??illness or fevers. ??No recent travel or procedures. ??Patient takes the Depo-Provera shot for??contraception.?? No known cardiac history. Review of Systems: See HPI Physical Exam Vitals & Measurements T:??36.7?C ??(Temporal Artery)?? HR:??107??(Monitored)?? RR:??18?? BP:??105/70?? SpO2:??100%?? HT:??162.56??cm?? WT:??45.36??kg?? BMI:??17.17?? General: Patient is alert and engaging, appears well. Is in no acute distress. Speaking comfortablyin full sentences.?? Constitutional: No fevers, chills or diaphoresis.?? HEENT: Head normocephalic and atraumatic. Neck supple with FROM. Respiratory: ??No obvious work of breathing, regular rate. BS equal b/l, clear to auscultation.?? Cardiovascular: Heart regular rate and rhythm w/o murmurs, rubs or gallops. No peripheral edema present.?? GI: normoactive BS. Abdomen soft non tender, nondistended without guarding, rebound or rigidity. NoHSM Extremities: No obvious deformities. FROM.?? Integumentary: Skin warm and pink. No rashes or ecchymosis present.?? Neuro: CN III-XII grossly intact.?? Psychiatric: acting appropriate for age and circumstance. Normal mood without obvious ??affect.?? Medical Decision Making: This is a 19-year-old well-appearing female here for concerns of palpitation.?? She is asymptomaticcurrently. ??Vitals obtained and reviewed within normal limits.?? EKG obtained showing sinus rhythmat a rate of 86 without any evidence of arrhythmia or ischemia.?Patient denies . ??Labsobtained.?? Patient monitor on telemetry while in the emergency department. Do not suspect??PE as patient is not having any chest pain cough or hemoptysis. ??Is not tachycardic??or hypoxic. ??No history of PE or DVT symptoms. Wells 0.?Labs reassuring. ?? negative. Patient placed on Holter monitor??and plans of close follow-up with her primary care she has an appointment at the end of January. Procedure No Qualifying Data Assessment/Plan 1.??Palpitations??R00.2 ??Patient discharged home. ??Remains asymptomatic while in the emergency department.?? No acute events on telemetry. ??Will be sent home on Holter monitor with close PCP follow-up. ??Strict return precautions understood. Ordered: CV Holter Monitor, 01/21/24 14:10:00 EST, Routine, Reason: Palpitations, Symptomatic, Stop date andtime 01/21/24 14:10:00 EST, Palpitations, ORD_SET_REQ_DT_RANGE, [employer] Person Id Discharge Patient, 01/21/24 14:28:00 EST, Home Independently ?? Patient Education Palpitations Follow Up With When Contact Information JOSEFA VELIZ, JMAES MCDERMOTT Within [address] [address] [phone] Additional Instructions: Medication Reconciliation Unchanged azithromycin (Zithromax Z-Nicholas 250 mg oral tablet)1 packets Oral (given by mouth) every day for 5 Days. Take 2 tablets on day 1 and 1 tablet days 2 through 5 with a quantity of 6.. Refills: 0. ?? busPIRone (busPIRone 5 mg oral tablet)TAKE 1/2 TO 1 TABLET BY MOUTH UP TO THREE TIMES DAILY NEEDED. ?? FLUoxetine ?? hydrOXYzine ?? hyoscyamine ?? medroxyPROGESTERone (Depo-Provera Contraceptive 150 mg/mL intramuscular suspension)1 Unknown. ?? methylPREDNISolone (Medrol Dosepak 4 mg oral tablet)1 packets Oral (given by mouth) every day for 6Days. as directed on package labeling. Refills: 0. ?? metroNIDAZOLE topical (metroNIDAZOLE 0.75% vaginal gel with applicator)INSERT 1 APPLICATORFUL VAGINALLY TWICE DAILY FOR 5 DAYS. ?? miconazole topical (Miconazole 7 vaginal cream with applicator)1 Application Vaginal (in the vagina) every night at bedtime. Refills: 0. ?? ondansetron (ondansetron 4 mg oral tablet, disintegrating)1 tab Oral (given by mouth) 3 times a day. Refills: 0. Problem List/Past Medical History Ongoing Amenorrhea Anxiety Decrease in appetite Epigastric pain Lipoma of abdominal wall Loss of taste Major depression, single episode Menometrorrhagia Nausea Patient encounter status Tonsillitis Historical No qualifying data Allergies penicillin??(Rash) Social History Alcohol Never Electronic Cigarette/Vaping Electronic Cigarette Use: Use, within last 90 days. Use per Day: 1-25 Inhales/day. Tobacco Never tobacco user, smokeless tobacco daily Tobacco Use:. Lab Results CBC and Differential?? LATEST RESULTS?? HISTORICAL RESULTS?? WBC?? 01/21/24 13:28?? 4.6 ??Low?? 12/15/23?? 4.7 ??Low?? RBC?? 01/21/24 13:28?? 4.45?? 12/15/23?? 4.47?? Hgb?? 01/21/24 13:28?? 13.1?? 12/15/23?? 13.2?? Hct?? 01/21/24 13:28?? 38.4?? 12/15/23?? 38.6?? MCV?? 01/21/24 13:28?? 86.3?? 12/15/23?? 86.5?? MCH?? 01/21/24 13:28?? 29.4?? 12/15/23?? 29.6?? MCHC?? 01/21/24 13:28?? 34.0?? 12/15/23?? 34.2?? RDW-CV?? 01/21/24 13:28?? 13.0?? 12/15/23?? 12.1?? Platelets?? 01/21/24 13:28?? 224?? 12/15/23?? 245?? MPV?? 01/21/24 13:28?? 8.5?? 12/15/23?? 8.5?? Neutro Auto?? 01/21/24 13:28?? 60.6?? 12/15/23?? 50.0?? Lymph Auto?? 01/21/24 13:28?? 26.3?? 12/15/23?? 34.5?? [place] Auto?? 01/21/24 13:28?? 8.5?? 12/15/23?? 9.9 ??High?? Eos, Auto?? 01/21/24 13:28?? 3.60 ??High?? 12/15/23?? 4.70 ??High?? Basophil Auto?? 01/21/24 13:28?? 1.0 ??High?? 12/15/23?? 0.9 ??High?? Neutro Absolute?? 01/21/24 13:28?? 2.8?? 12/15/23?? 2.3?? Lymph Absolute?? 01/21/24 13:28?? 1.2?? 12/15/23?? 1.6?? [place] Absolute?? 01/21/24 13:28?? 0.4?? 12/15/23?? 0.5?? Eos Absolute?? 01/21/24 13:28?? 0.2?? 12/15/23?? 0.2?? Baso Absolute?? 01/21/24 13:28?? 0.0?? 12/15/23?? 0.0? Routine Chemistry?? LATEST RESULTS?? HISTORICAL RESULTS?? Sodium Level?? 01/21/24 13:28?? 140?? 12/15/23?? 138?? Potassium Level?? 01/21/24 13:28?? 3.6?? 12/15/23?? 3.7?? Chloride Level?? 01/21/24 13:28?? 110 ??High?? 12/15/23?? 109 ??High?? CO2?? 01/21/24 13:28?? 23?? 12/15/23?? 24?? Alk Phos?? 01/21/24 13:28?? 55?? 12/15/23?? 58?? AST?? 01/21/24 13:28?? 15?? 12/15/23?? 16?? ALT?? 01/21/24 13:28?? 9?? 12/15/23?? 10?? BUN?? 01/21/24 13:28?? 8?? 12/15/23?? 9?? Glucose Level?? 01/21/24 13:28?? 102?? 12/15/23?? 102?? Creatinine Level?? 01/21/24 13:28?? 0.50 ??Low?? 12/15/23?? 0.50 ??Low?? BUN/Creat Ratio?? 01/21/24 13:28?? 16.0?? 12/15/23?? 18.0?? eGFR CKD-EPI?? 01/21/24 13:28?? 138?? 12/15/23?? 138?? Calcium Level?? 01/21/24 13:28?? 8.7?? 12/15/23?? 9.1?? Protein Total?? 01/21/24 13:28?? 6.2 ??Low?? 12/15/23?? 7.0?? Albumin Level?? 01/21/24 13:28?? 4.1?? 12/15/23?? 4.5?? Globulin?? 01/21/24 13:28?? 2.1 ??Low?? 12/15/23?? 2.5?? A/G Ratio?? 01/21/24 13:28?? 2.0?? 12/15/23?? 1.8?? Bilirubin Total?? 01/21/24 13:28?? 0.4?? 12/15/23?? 0.3?? Anion Gap?? 01/21/24 13:28?? 7.0?? 12/15/23?? 5.0?? Osmolality?? 01/21/24 13:28?? 278?? 12/15/23?? 275? Testing?? LATEST RESULTS?? Beta hCG Qnt?? 01/21/24 13:28?? <0.6? Timed Urine Chemistry?? LATEST RESULTS?? Estimated Creatinine Clearance?? 01/21/24 13:57?? 128.52? Electronically Signed on 01/21/2024 14:36 EST KEREN Mello Emergency department Discharge instructions * KEREN Mello: PERFORM Event Display: ED Discharge Information Authored Date: [id number] JOSE ROBERTO BALBUENA :2005 Age:19 years Sex:Female Visit Date:01/21/2024 Primary Care Physician: JAMES ELIZABETH Discharge Instructions We would like to thank you for allowing us to assist you with your healthcare needs. The following includes patient education materials and information regarding your injury/illness. Diagnosis from Today's Visit Palpitations Discharge Vitals Temperature??(Temporal Artery) 98.1 ??F (36.7 ??C) Heart Rate??(Monitored) 107 Respiratory Rate?? 18 Blood Pressure?? 105/70?? SpO2?? 100% Height?? 64.00 in (162.56 cm) Weight?? 100.02 lb (45.36 kg) BMI?? 17.17 Allergies penicillin??(Rash) What to Do Next Instructions from Your Care Team You were seen here for palpitations. ??You are being discharged home with a Holter monitor which she will wear for the next 24 hours and return??for read. ??I would like you to be followed closely bycritical access hospital[facility] care to be seen in the next 1 to 2 weeks return with any concerns of chest pain difficulty b reathing??worsening palpitations or syncopal episodes. You Need to Schedule the Following Appointments Follow Up with??JOSEFA VELIZ, JAMES MCDERMOTT When:??Within 1 week Where: [address] [phone] You were treated today on an emergency [...] Much When Why Instructions Next Dose Unchanged azithromycin (Zithromax Z-Nicholas 250 mg oral tablet) 1 packets Oral (given by mouth) Every day Duration: 5 Days Take 2 tablets on day 1 and 1 tablet days 2 through 5 with a quantity of 6. ?? Unchanged busPIRone (busPIRone 5 mg oral tablet) TAKE 1/ 2 TO 1 TABLET BY MOUTH UP TO THREE TIMES DAILY NEEDED ?? Unchanged FLUoxetine Unchanged hydrOXYzine Unchanged hyoscyamine Unchanged medroxyPROGESTERone (Depo-Provera Contraceptive 150 mg/ mL intramuscular suspension) 1 Unknown ?? Unchanged methylPREDNISolone (Medrol Dosepak 4 mg oral tablet) 1 packets Oral (given by mouth) Every day Duration: 6 Days as directed on package labeling ?? Unchanged metroNIDAZOLE topical (metroNIDAZOLE 0.75% vaginal gel with applicator) INSERT 1 APPLICATORFUL VAGINALLY TWICE DAILY FOR 5 DAYS ?? Unchanged miconazole topical (Miconazole 7 vaginal cream with applicator) 1 Application Vaginal (in the vagina) Every night at bedtime Unchanged ondansetron (ondansetron 4 mg oral tablet, disintegrating) 1 tab Oral (given by mouth) 3 times a day Influenza-like illness Education Materials Palpitations Palpitations are feelings that your heartbeat is irregular or is faster than normal. It may feel like your heart is fluttering or skipping a beat. Palpitations may be caused by many things, includingsmoking, caffeine, alcohol, stress, and certain medicines or drugs. Most causes of palpitations arenot serious. However, some palpitations can be a sign of a serious problem. Further tests and a thorough medicalhistory will be done to find the cause of your palpitations. Your provider may order tests such as an ECG, labs, an echocardiogram, or an ambulatory continuous ECG monitor. Follow these instructions at home: Pay attention to any changes in your symptoms. Let your health care provider know about them. Take these actions to help manage your symptoms: Eating and drinking Follow instructions from your health care provider about eating or drinking restrictions. You may need to avoid foods and drinks that may cause palpitations. These may include: ? Caffeinated coffee, tea, soft drinks, and energy drinks. ? Chocolate. ? Alcohol. ? Diet pills. Lifestyle ? Take steps to reduce your stress and anxiety. Things that can help you relax include: ? Yoga. ? Mind-body activities, such as deep breathing, meditation, or using words and images to create positive thoughts (guided imagery). ? Physical activity, such as swimming, jogging, or walking. Tell your health care provider if your palpitations increase with activity. If you have chest pain or shortness of breath with activity, do not continue the activity until you are seen by your health care provider. ? Biofeedback. This is a method that helps you learn to use your mind to control things in your body,such as your heartbeat. ? Get plenty of rest and sleep. Keep a regular bed time. ? Do not use drugs, including cocaine or ecstasy. Do not use marijuana. ? Do not use any products that contain nicotine or tobacco. These products include cigarettes, chewing tobacco, and vaping devices, such as e-cigarettes. If you need help quitting, ask your health careprovider. General instructions ? Take syvq-rer-fesxzux and prescription medicines only as told by your health care provider. ? Keep all follow-up visits. This is important. These may include visits for further testing if palpitations do not go away or get worse. Contact a health care provider if: ? You continue to have a fast or irregular heartbeat for a long period of time. ? You notice that your palpitations occur more often. Get help right away if: ? You have chest pain or shortness of breath. ? You have a severe headache. ? You feel dizzy or you faint. These symptoms may represent a serious problem that is an emergency. Do not wait to see if the symptoms will go away. Get medical help right away. Call your local emergency services (911 in the [place] Do not drive yourself to the hospital. Summary ? Palpitations are feelings that your heartbeat is irregular or is faster than normal. It may feel like your heart is fluttering or skipping a beat. ? Palpitations may be caused by many things, including smoking, caffeine, alcohol, stress, certain medicines, and drugs. ? Further tests and a thorough medical history may be done to find the cause of your palpitations. ? Get help right away if you faint or have chest pain, shortness of breath, severe headache, or dizziness. This information is not intended to replace advice given to you by your health care provider. Make sure you discuss any questions you have with your health care provider. Document Revised: 06/20/2021 Document Reviewed: 06/20/2021 [employer] Patient Education ?? 2022 [employer] Tests Performed Lab Test Name Test Result Date/Time WBC 4.6 K/mcL 01/21/2024 13:28 EST RBC 4.45 Million/mcL 01/21/2024 13:28 EST Hgb 13.1 g/dL 01/21/2024 13:28 EST Hct 38.4 % 01/21/2024 13:28 EST MCV 86.3 fL 01/21/2024 13:28 EST MCH 29.4 pg 01/21/2024 13:28 EST MCHC 34.0 g/dL 01/21/2024 13:28 EST RDW-CV 13.0 % 01/21/2024 13:28 EST Platelets 224 K/mcL 01/21/2024 13:28 EST MPV 8.5 fL 01/21/2024 13:28 EST Neutro Auto 60.6 % 01/21/2024 13:28 EST Lymph Auto 26.3 % 01/21/2024 13:28 EST [place] Auto 8.5 % 01/21/2024 13:28 EST Eos, Auto 3.60 % 01/21/2024 13:28 EST Basophil Auto 1.0 % 01/21/2024 13:28 EST Neutro Absolute 2.8 K/mcL 01/21/2024 13:28 EST Lymph Absolute 1.2 K/mcL 01/21/2024 13:28 EST [place] Absolute 0.4 K/mcL 01/21/2024 13:28 EST Eos Absolute 0.2 K/mcL 01/21/2024 13:28 EST Baso Absolute 0.0 K/mcL 01/21/2024 13:28 EST Sodium Level 140 mmol/L 01/21/2024 13:28 EST Potassium Level 3.6 mmol/L 01/21/2024 13:28 EST Chloride Level 110 mmol/L 01/21/2024 13:28 EST CO2 23 mmol/L 01/21/2024 13:28 EST Alk Phos 55 IntlUnit/L 01/21/2024 13:28 EST AST 15 IntlUnit/L 01/21/2024 13:28 EST ALT 9 IntlUnit/L 01/21/2024 13:28 EST BUN 8 mg/dL 01/21/2024 13:28 EST Glucose Level 102 mg/dL 01/21/2024 13:28 EST Creatinine Level 0.50 mg/dL 01/21/2024 13:28 EST BUN/Creat Ratio 16.0 01/21/2024 13:28 EST eGFR CKD-EPI 138 mL/min/1.73 m2 01/21/2024 13:28 EST Calcium Level 8.7 mg/dL 01/21/2024 13:28 EST Protein Total 6.2 g/dL 01/21/2024 13:28 EST Albumin Level 4.1 g/dL 01/21/2024 13:28 EST Globulin 2.1 g/dL 01/21/2024 13:28 EST A/G Ratio 2.0 g/dL 01/21/2024 13:28 EST Bilirubin Total 0.4 mg/dL 01/21/2024 13:28 EST Anion Gap 7.0 01/21/2024 13:28 EST Osmolality 278 mOsm/kg 01/21/2024 13:28 EST Beta hCG Qnt <0.6 mIntlUnit/mL 01/21/2024 13:28 EST Estimated Creatinine Clearance 128.52 mL/min 01/21/2024 13:57 EST Patient/Revenue Agent Signature Patient Name:JOSE ROBERTO BALBUENA I have received this information and my questions have been answered. Patient/Revenue Agent Name: Patient/Revenue Agent Signature: Relationship to Patient: Witness Name/Signature: Date: Electronically Signed on: 01/21/2024 14:29 ESTSigned by:LU Patient Care team information Care Team Personnel Name: Krystal Kurtz APRN Position: Physician Member Role: Nurse Practitioner Address: [address] [place] [address]- [place] Name: JAMES ELIZABETH Position: No Access Member Role: Primary Care Physician Address: [facility] [address] [place] [address]- Care Team Related Persons Name: FAIZA BALBUENA Insurance Providers Guarantor name: JOSE ROBERTO Sanabria BALBUENA Health Plan Information #: 1 Payer: [place]ID [place] Member Number: [id number] Policy Number: NA Health Plan Information #: 2 Payer: [place] Member Number: [id number] Policy Number: NA Health Plan Information #: 3 Payer: [place] Member Number: [id number] Policy Number: NA
--- OUTSIDE RECORDS SUMMARY | 2024-02-03 12:35 | XMS_ITS | Continuity of Care Document ---
Author Organization [facility] Ambulatory Clinics Address [address] [place] [address] Care Team Providers Care Food Cashier Name Role Phone Christina Cardoso Primary Care Physician Encounter [facility] FIN NBR [id number] Date(s): 06/07/22 - 06/07/22 [facility] Ambulatory Clinics [address], [place] [address] Encounter Diagnosis Dysuria(Discharge Diagnosis) - 06/07/22 Discharge Disposition: Home or Self Care Attending Physician: Ayla Hopper APRN Allergies, Adverse Reactions, Alerts No Known Allergies Functional Status 06/07/22 Other exposure to Infectious Disease Non e [...] #60, # 60 tab, 0 Refill(s), Pharmacy: [facility] #[id number] Start Date: 12/12/21 Status: Ordered hyoscyamine 0.125 mg oral tablet, disintegrating QID, 0 Refill(s) Start Date: 11/29/21 Status: Ordered Lexapro 5 mg oral tablet 10 mg = 2 tab, Oral, Daily, Take one tab daily for 7 days then take 2 tabs daily, # 60 tab, 0 Refill(s), Pharmacy: [facility] #[id number] Start Date: 12/05/21 Stop Date: 01/04/22 Status: Ordered Macrobid 100 mg oral capsule 100 mg = 1 cap, Oral, BID, # 10 cap, 0 Refill(s), Pharmacy: [facility] #[id number], 163, cm, 02/17/22 23:22:00 EST, Height/Length Dosing, [...] # 12 EA, 3 Refill(s), Pharmacy: [facility] #[id number], 163, cm, 12/21/21 17:49:00 EST, Height/Length [...] Laboratory List Name Date Urine Qual POCT 06/07/22 .Urinalysis POCT 06/07/22 Most recent to oldest [Reference Range]: 1 Specific [place], Ur POC 1.030 *NA* (06/07/22 11:41 AM) Specimen Color POC [Yellow] Vicki *ABN* (06/07/22 11:41 AM) Glucose, Urine POC Negative mg/dL *NA* (06/07/22 11:41 AM) Bilirubin, Urine POC [Negative] Negative (06/07/22 11:41 AM) Ketones, Urine POC [Negative mg/dL] Nega tive mg/dL (06/07/22 11:41 AM) Blood, Urine POC [Negative] Moderate *ABN* (06/07/22 11:41 AM) pH, Urine POC 6.00 *NA* (06/07/22 11:41 AM) Protein, Urine POC [Negative mg/dL] 100 mg/dL *ABN* (06/07/22 11:41 AM) Urobilinogen, Urine POC [0.2] 1.0 *ABN* (06/07/22 11:41 AM) Nitrite, Urine POC [Negative] Negative (06/07/22 11:41 AM) Leuk Esterase, Urine POC [Negative] Nega tive (06/07/22 11:41 AM) Clarity, Urine POC [Clear] Slightly Clou dy *ABN* (06/07/22 11:41 AM) U Preg POCT [Negative] Negative (06/07/22 11:43 AM) Vital Signs Most recent to oldest [Reference Range]: 1 Temperature Tympanic [36.6-37.9 Deg C] 3 6.8 Deg C (06/07/22 11:26 AM) Peripheral Pulse Rate [60-100 bpm] 92 bp m (06/07/22 11:26 AM) Blood Pressure [90-140/60-90 mmHg] 110/6 3mmHg (06/07/22 11:26 AM) Weight 39.92 kg (06/07/22 11: AM) Weight Measured (lbs) 88.008 lb (06/07/22 11: AM) Height 162.56 cm (06/07/22 11: AM) Height/Length Measured (inches) 64 inch (06/07/22 11: AM) BSA Measured 1.34 m2 (06/07/22 11: AM) Body Mass Index 15.11 kg/m2 (06/07/22 11: AM) Body Mass Index Percentile 0.01 1 (06/07/22 11:26 AM) Height/Length Percentile 46.18 2 (06/07/22 11: AM) Weight Percentile 0.12 3 (06/07/22 11:26 AM) 1Result Comment: ^~:!Percentile Source -CDC 2Result Comment: ^~:!Percentile Source -CDC 3Result Comment: ^~:!Percentile Source -[facility] Social History Social History Type Response Tobacco Never tobacco user, smokeless tobacco daily Tobacco Use:. Sex Female Physician Outpatient Note * Ayla Hopper, WIRE SPOOLER: PERFORM Event Display: Office Clinic Note Physician Authored Date: [id number] JOSE ROBERTO BALBUENA :2005 Age:17 years Sex:Female Visit Date:06/07/2022 Primary Care Physician: Christina Cardoso MD Chief Complaint pt reports burning sensation when urinating, green diarrhea, hot and cold chills, lower abdominal pain symptoms started 2 days ago History of Present Illness Patient is a 17-year-old female who presents today with a chief complaint of dysuria. ??She states that she has had??UTI symptoms??with burning with urination??over the last 48??he did state that shehad a sewed's of??diarrhea??yesterday with associated hot and cold chills??and some mild lower abdominal discomfort. ??She states that??she continues to have dysuria??today, denies any??episodes of diarrhea today. ??Mild nausea.?? She denies fever, vomiting or body aches Review of Systems see hpi Physical Exam Vitals & Measurements T:??36.8?C ??(Tympanic)?? HR:??92??(Peripheral)?? BP:??110/63?? SpO2:??100%?? HT:??46.18??(Percentile)?? HT:??162.56??cm?? WT:??0.12??(Percentile)?? WT:??39.92??kg?? BMI:??0.01??(Percentile)?? BMI:??15.11?? Pain Score:??6?? BSA:??1.34?? General: Well-appearing, no acute distress, alert and oriented x3. Skin: No concerning lesions in examined areas. Head: Normal cephalic without trauma or injury. Cardiovascular: Regular rate and rhythm. ??No murmur, rubs, or gallops. Respiratory: Clear to auscultation bilaterally. ??No wheezes, rales, rhonchi. Chest: No deformity. ??Nontender, normal inspiration and expiration. Abdomen: Soft, nontender. ??No peritoneal signs, rigidity, guarding. ??No CVA tenderness. Medical Decision Making: Patient was evaluated for dysuria. ??Urinalysis was obtained which reflects scant leukocyte??and blood. ??Will be sent for??culture. ??She will be started on Macrobid with the understanding that a course of treatment may change pending culture. ??She is to continue fluids, Tylenol for pain or fever. ??Follow-up with primary care for lack of improvement seek urgent and or emergent care for any worsening or concerning symptoms such as fever,??nausea, vomiting, abdominal/flank discomfort or any other concerns. Assessment/Plan Dysuria??R30.0 Ordered: Urine Culture, U CleanCatch, Routine collect, RT - Routine, 06/07/22 12:38:00 EDT, Once, Nurse collect, by [email or web address], Micro Spec, Dysuria, Print Label [id number], Not Required Urine Dipstick Clinic POC (RE), 06/07/22 11:41:00 EDT, Dysuria, 06/07/22 11:41:00 EDT Urine Test Clinic POC (RE), 06/07/22 11:41:00 EDT, Dysuria, 06/07/22 11:41:00 EDT ?? Orders: Macrobid 100 mg oral capsule, 100 mg = 1 cap, Oral, BID, # 10 cap, 0 Refill(s), Pharmacy: [facility] #[id number], 163, cm, 02/17/22 23:22:00 EST, Height/Length Dosing, 40.6, kg, 02/17/22 23:22:00 EST, Weight Dosing Patient Instructions Take Macrobid 1 capsule twice a day for 5 days,??treatment may change pending culture.?? Monitor for any worsening signs or symptoms??such as fever, increased abdominal pain, nausea or vomiting. Problem List/Past Medical History Ongoing Amenorrhea Anxiety Decrease in appetite Epigastric pain Lipoma of abdominal wall Loss of taste Major depression, single episode Menometrorrhagia Nausea Patient encounter status Historical No qualifying data Medications busPIRone 10 mg oral tablet, BID Depo-Provera Contraceptive 150 mg/mL intramuscular suspension escitalopram 5 mg oral tablet, See Instructions hyoscyamine 0.125 mg oral tablet, disintegrating, QID Lexapro 5 mg oral tablet, 10 mg= 2 tab, Oral, Daily Macrobid 100 mg oral capsule, 100 mg= 1 cap, Oral, BID medroxyPROGESTERone 150 mg/mL intramuscular suspension promethazine 12.5 mg oral tablet, QID Xulane 150 mcg-35 mcg/24 hr transdermal film, extended release, 1 patches, Topical, every week, 3 refills Allergies No Known Allergies No Known Medication [...] Lab Results Test Name Test Result Date/Time Specimen Color POC Vicki 06/07/2022 11:41 EDT Clarity, Urine POC Slightly Cloudy 06/07/2022 11:41 EDT Glucose, Urine POC Negative 06/07/2022 11:41 EDT Bilirubin, Urine POC Negative 06/07/2022 11:41 EDT Ketones, Urine POC Negative 06/07/2022 11:41 EDT Specific [place], Ur POC 1.030 06/07/2022 11:41 EDT pH, Urine POC 6.00 06/07/2022 11:41 EDT Protein, Urine POC 100 06/07/2022 11:41 EDT Urobilinogen, Urine POC 1.0 06/07/2022 11:41 EDT Nitrite, Urine POC Negative 06/07/2022 11:41 EDT Blood, Urine POC Moderate 06/07/2022 11:41 EDT Leuk Esterase, Urine POC Negative 06/07/2022 11:41 EDT U Preg POCT Negative 06/07/2022 11:43 EDT Electronically Signed on 06/07/22 07:41 PM Ayla Hopper APRN * Ayla Hopper APRN: PERFORM Event Display: Office Clinic Note Physician Authored Date: [id number] JOSE ROBERTO BALBUENA :2005 Age:17 years Sex:Female Visit Date:06/07/2022 Primary Care Physician: Christina Cardoso MD Chief Complaint pt reports burning sensation when urinating, green diarrhea, hot and cold chills, lower abdominal pain symptoms started 2 days ago History of Present Illness Patient is an 17-year-old female who presents today with a chief complaint of dysuria. ??She noted that??she has had burning with urination over the last 48 hours, she states yesterday having multiple episodes of green??diarrhea with associated hot and cold chills??and some mild lower abdominal discomfort. ??She states that??she had some mild nausea today, she has not had any diarrhea today. Review of Systems Review of systems per HPI Physical Exam Vitals & Measurements T:??36.8?C ??(Tympanic)?? HR:??92??(Peripheral)?? BP:??110/63?? SpO2:??100%?? HT:??46.18??(Percentile)?? HT:??162.56??cm?? WT:??0.12??(Percentile)?? WT:??39.92??kg?? BMI:??0.01??(Percentile)?? BMI:??15.11?? Pain Score:??6?? BSA:??1.34?? General: Well-appearing, no acute distress, alert and [...] tenderness. Medical Decision Making: Patient was evaluated for dysuria. ??Urinalysis??negative for??nitrites, positive for blood. ??Cultures pending.?? Given her presentation she will be started on Macrobid??with the understanding that course of treatment may change. ??She was provided information on??supportive care at home and return precautions. Assessment/Plan Dysuria??R30.0 Ordered: Urine Culture, Urine, Routine collect, RT - Routine, 06/07/22, Once, Nurse collect, Dysuria, Order for future visit Urine Dipstick Clinic POC (RE), 06/07/22 11:41:00 EDT, Dysuria, 06/07/22 11:41:00 EDT Urine Test Clinic POC (RE), 06/07/22 11:41:00 EDT, Dysuria, 06/07/22 11:41:00 EDT ?? Orders: Macrobid 100 mg oral capsule, 100 mg = 1 cap, Oral, BID, # 10 cap, 0 Refill(s), Pharmacy: [facility] #[id number], 163, cm, 02/17/22 23:22:00 EST, Height/Length Dosing, 40.6, kg, 02/17/22 23:22:00 EST, Weight Dosing Patient Instructions Take Macrobid 1 capsule twice a day for 5 days,??treatment may change pending culture.?? Monitor for any worsening signs or symptoms??such as fever, increased abdominal pain, nausea or vomiting. Future Orders Urine Culture, Urine, Routine collect, RT - Routine, 06/07/22, Once, Nurse collect, Dysuria, Order for future visit Problem List/Past Medical History Ongoing Amenorrhea Anxiety Decrease in appetite Epigastric pain Lipoma of abdominal wall Loss of taste Major depression, single episode Menometrorrhagia Nausea Patient encounter status Historical No qualifying data Medications busPIRone 10 mg oral tablet, BID Depo-Provera Contraceptive 150 mg/mL intramuscular suspension escitalopram 5 mg oral tablet, See Instructions hyoscyamine 0.125 mg oral tablet, disintegrating, QID Lexapro 5 mg oral tablet, 10 mg= 2 tab, Oral, Daily Macrobid 100 mg oral capsule, 100 mg= 1 cap, Oral, BID medroxyPROGESTERone 150 mg/mL intramuscular suspension promethazine 12.5 mg oral tablet, QID Xulane 150 mcg-35 mcg/24 hr transdermal film, extended release, 1 patches, Topical, every week, 3 refills Allergies No Known Allergies No Known Medication [...] Lab Results Test Name Test Result Date/Time Specimen Color POC Vicki 06/07/2022 11:41 EDT Clarity, Urine POC Slightly Cloudy 06/07/2022 11:41 EDT Glucose, Urine POC Negative 06/07/2022 11:41 EDT Bilirubin, Urine POC Negative 06/07/2022 11:41 EDT Ketones, Urine POC Negative 06/07/2022 11:41 EDT Specific [place], Ur POC 1.030 06/07/2022 11:41 EDT pH, Urine POC 6.00 06/07/2022 11:41 EDT Protein, Urine POC 100 06/07/2022 11:41 EDT Urobilinogen, Urine POC 1.0 06/07/2022 11:41 EDT Nitrite, Urine POC Negative 06/07/2022 11:41 EDT Blood, Urine POC Moderate 06/07/2022 11:41 EDT Leuk Esterase, Urine POC Negative 06/07/2022 11:41 EDT U Preg POCT Negative 06/07/2022 11:43 EDT Electronically Signed on 06/07/22 12:18 PM Ayla Hopper APRN Outpatient Summary note * Ayla Hopper APRN: PERFORM Event Display: Ambulatory Patient Summary Authored Date: [id number] BALBUENAJOSE ROBERTO :2005 Age:17 years Sex:Female Visit Date:06/07/2022 Primary Care Physician: Christina Cardoso MD Ambulatory Visit Instructions We would like to thank you for allowing us to assist you with your healthcare needs. The following includes patient education materials and information regarding your injury/illness. Your Next Steps Instructions From Your Care Team Take Macrobid 1 capsule twice a day for 5 days,??treatment may change pending culture.?? Monitor for any worsening signs or symptoms??such as fever, increased abdominal pain, nausea or vomiting. Medications What How Much When Why Instructions New nitrofurantoin (Macrobid 100 mg oral capsule) 1 Capsules Oral (given by mouth) 2 times a day Duration: 5 Days Pickup at [facility] #[id number] Unchanged busPIRone (busPIRone 10 mg oral tablet) [...] mg oral tablet) 4 times a day Pharmacy Information [facility] #[id number]: [address], [place] [id number] [phone] Your Summary Your Diagnosis Dysuria Problems Ongoing - Any problem that you are currently receiving treatment for. Amenorrhea Anxiety Decrease in appetite Epigastric pain Lipoma of abdominal wall Loss of taste Major depression, single episode Menometrorrhagia Nausea Patient encounter status Outstanding Tests .Urinalysis POCT Urine Qual POCT Tests Performed Test Name Test Result Date/Time Specimen Color POC Vicki 06/07/2022 11:41 EDT Clarity, Urine POC Slightly Cloudy 06/07/2022 11:41 EDT Glucose, Urine POC Negative 06/07/2022 11:41 EDT Bilirubin, Urine POC Negative 06/07/2022 11:41 EDT Ketones, Urine POC Negative 06/07/2022 11:41 EDT Specific [place], Ur POC 1.030 06/07/2022 11:41 EDT pH, Urine POC 6.00 06/07/2022 11:41 EDT Protein, Urine POC 100 06/07/2022 11:41 EDT Urobilinogen, Urine POC 1.0 06/07/2022 11:41 EDT Nitrite, Urine POC Negative 06/07/2022 11:41 EDT Blood, Urine POC Moderate 06/07/2022 11:41 EDT Leuk Esterase, Urine POC Negative 06/07/2022 11:41 EDT U Preg POCT Negative 06/07/2022 11:43 EDT Your Care Team Attending Physician - Ayla Hopper APRN Primary Care Physician - Christina Cardoso MD Discharge Vitals Temperature??(Tympanic) 98.2 ??F (36.8 ??C) Heart Rate??(Peripheral) 92 Blood Pressure?? 110/63?? Height?? 64.00 in (162.56 cm) Weight?? 88.02 lb (39.92 kg) BMI?? 15.11 Allergies No Known Allergies No Known Medication Allergies Electronically Signed on: 06/07/2022 12:00 EDTSigned by:DARRYL Patient Care team information Care Team Personnel Name: Krystal Kurtz APRN Position: Physician Member Role: Nurse Practitioner Address: Address: [address] [place] [address] Name: Christina Cardoso MD Position: Physician Member Role: Primary Care Physician Address: Address: [address] [place] [id number] Care Team Related Persons Name: ALVARO BALBUENA Address: Home [address] [place], [place] [id number] [facility] Name: ALVARO BALBUENA Address: Home [address] [place], [place] [id number] [facility] Name: CAROLINA BALBUENA Address: [facility]
--- OUTSIDE RECORDS SUMMARY | 2024-02-03 12:35 | XMS_ITS | Continuity of Care Document ---
Author Organization [facility] Address [address] [place] [address] Care Team Providers Care Orchard Sprayer Name Role Phone MELVA WATTS APRN Primary Care Physician Encounter LTTL_MI FIN NBR [id number] Date(s): 09/04/23 - 09/04/23 [facility] [address], [place] [address] Discharge Disposition: Home or Self Care Attending Physician: Jason Daugherty MD Admitting Physician: Jason Daugherty MD Allergies, Adverse Reactions, Alerts No Known Allergies Assessment and Plan Extracted from: Title:ED Provider Note Author:KEREN Mello Date:09/04/23 Ordered: Strep A (GeneXpert), Swab, Stat Collect, 09/04/23 10:47:00 EDT, Once, Nurse collect, Print Label Patient left AMA as she does not want strep testing done. ??She is being treated with a penicillin by her primary care and I??encouraged her to have follow-up with them as they have been seeing her for recurrent strep throat. ??Return precautions understood. Future Appointments Future Scheduled Tests Laboratory* Urine Culture 01/03/23 * Chlamydia trachomatis and Neisseria gonorrhoeae (GeneXpert) 01/03/23 Radiology* US Transvaginal Non-OB 06/28/23 * CT Abdomen and Pelvis w/ Contrast 08/15/23 Functional Status 09/04/23 Family Member Travel History No recent t [...] hr, # 8.5 g, 0 Refill(s), Pharmacy: [facility] #[id number], 162, cm, 02/25/23 11:58:00 EST, Height, 42, kg, 03/16/23 18:01:00 EST, Weight Dosing Start Date: 03/17/23 Stop Date: 04/16/23 Status: Ordered Depo-Provera Contraceptive 150 mg/mL intramuscular suspension 1 Unknown, 0 Refill(s) Start Date: 11/29/21 Status: Ordered ondansetron 4 mg oral tablet, disintegrating 4 mg = 1 tab, Oral, TID, # 10 tab, 0 Refill(s), Pharmacy: [facility] #[id number], 162, cm, 02/25/23 11:58:00 EST, Height, 40.8, kg, 02/25/23 12:04:00 EST, Weight Dosing Start Date: 02/25/23 Status: Ordered penicillin V potassium 250 mg/5 mL oral liquid 500 mg = 10 mL, Oral, every 8 hr, # 300 mL, 0 Refill(s), [id number], 162.56, cm, 04/12/23 8:47:00 EST, Height, 42.64, [...] List Name Date SARS-CoV-2 (COVID-19)/Flu/RSV (GeneXpert ) 09/04/23 CBC w/ Diff 09/04/23 Comprehensive Metabolic Panel (CMP) 09/03 Mononucleosis Screen 09/04/23 Automated Diff 09/04/23 Most recent to oldest [Reference Range]: 1 WBC [4.8-10.8 K/mcL] 7.2 K/mcL (09/04/23 10:59 AM) RBC [4.20-5.40 Million/mcL] 4.47 Million /mcL (09/04/23 10:59 AM) Neutro Auto [42.2-75.2 %] 81.8 % *HI* (09/04/23 10:59 AM) Lymph Auto [20.5-51.1 %] 9.9 % *LOW* (09/04/23 10:59 AM) [place] Auto [1.7-9.3 %] 7.6 % (09/04/23 10:59 AM) Basophil Auto [0.0-0.8 %] 0.4 % (09/04/23 10:59 AM) BUN [7-25 mg/dL] 8 mg/dL (09/04/23 10:59 AM) Glucose Level [70-109 mg/dL] 84 mg/dL (09/04/23 10:59 AM) Potassium Level [3.5-5.1 mmol/L] 3.8 mmo l/L (09/04/23 10:59 AM) Baso Absolute [0.0-0.2 K/mcL] 0.0 K/mcL (09/04/23 10:59 AM) MCV [81.0-99.0 fL] 85.9 fL (09/04/23 10:59 AM) AST [13-39 IntlUnit/L] 16 IntlUnit/L (09/04/23 10:59 AM) ALT [7-52 IntlUnit/L] 11 IntlUnit/L (09/04/23 10:59 AM) MCHC [32.0-37.0 g/dL] 34.2 g/dL (09/04/23 10:59 AM) Osmolality [275-295 mOsm/kg] 270 mOsm/kg *LOW* (09/04/23 10:59 AM) Sodium Level [136-145 mmol/L] 136 mmol/L (09/04/23 10:59 AM) Lymph Absolute [1.2-3.4 K/mcL] 0.7 K/mcL *LOW* (09/04/23 10:59 AM) Hct [37.0-47.0 %] 38.4 % (09/04/23 10:59 AM) Calcium Level [8.6-10.3 mg/dL] 9.2 mg/dL (09/04/23 10:59 AM) [place] Absolute [0.1-0.6 K/mcL] 0.5 K/mcL (09/04/23 10:59 AM) Albumin Level [3.5-5.7 g/dL] 4.6 g/dL (09/04/23 10:59 AM) Protein Total [6.4-8.9 g/dL] 7.3 g/dL (09/04/23 10:59 AM) MCH [27.0-31.0 pg] 29.4 pg (09/04/23 10:59 AM) Neutro Absolute [1.4-6.5 K/mcL] 5.9 K/mc L (09/04/23 10:59 AM) Bilirubin Total [0.3-1.0 mg/dL] 0.5 mg/d L (09/04/23 10:59 AM) Hgb [12.0-16.0 g/dL] 13.2 g/dL (09/04/23 10:59 AM) Alk Phos [34-104 IntlUnit/L] 78 IntlUnit /L (09/04/23 10:59 AM) MPV [7.4-10.4 fL] 8.5 fL (09/04/23 10:59 AM) Platelets [130-400 K/mcL] 226 K/mcL (09/04/23 10:59 AM) CO2 [21-31 mmol/L] 22 mmol/L (09/04/23 10:59 AM) Eos Absolute [0.0-0.2 K/mcL] 0.0 K/mcL (09/04/23 10:59 AM) Chloride Level [98-107 mmol/L] 106 mmol/ L (09/04/23 10:59 AM) RDW-CV [11.5-14.5 %] 12.9 % (09/04/23 10:59 AM) A/G Ratio [1.0-2.5 g/dL] 1.7 g/dL (09/04/23 10:59 AM) BUN/Creat Ratio [8.0-20.0] 20.0 (09/04/23 10:59 AM) Globulin [2.3-3.5 g/dL] 2.7 g/dL (09/04/23 10:59 AM) Creatinine Level [0.60-1.20 mg/dL] 0.40 mg/dL *LOW* (09/04/23 10:59 AM) SARS-CoV-2(Covid19)PCR(GXpert COVFLURSV) [Negative] Negative (09/04/23 11:25 AM) Flu A (GXpert COVFLURSV) [Negative] Nega tive (09/04/23 11:25 AM) RSV (GXpert COVFLURSV) [Negative] Negati ve (09/04/23 11:25 AM) Flu B (GXpert COVFLURSV) [Negative] Nega tive (09/04/23 11:25 AM) Anion Gap [3.0-12.0] 8.0 (09/04/23 10:59 AM) Eos, Auto [0.00-3.00 %] 0.30 % (09/04/23 10:59 AM) eGFR CKD-EPI [>=60 mL/min/1.73 m2] 146 m L/min/1.73 m2 (09/04/23 10:59 AM) Mononucleosis Screen [Negative] Negative (09/04/23 10:59 AM) Radiology Reports * Exam Date Time Procedure Performing Provider Status 09/04/23 11:37 AM XR Chest 2 Views [place] Man; Barbie (Verified) Notes: (XR Chest 2 Views) Reason For Exam: cough + fever x 4 days. hx strep;Chest pain XR Chest 2 Views EXAM DESCRIPTION: XR Chest 2 Views 09/04/2023 INDICATION: CHEST PAIN COMPARISON: 06/12/2020 FINDINGS: Clear lungs with no focal infiltrate or pulmonary edema. Normal cardiomediastinal contour. Normal pleural margins with no pleural effusion or pneumothorax. IMPRESSION: Normal PA and lateral views of the chest. JOB #: [id number] Final Signed by: Kiet Ragsdale MD Signed (Electronic Signature): 09/04/2023 11:40 am Vital Signs Most recent to oldest [Reference Range]: 1 2 3 Temperature Oral [35.8-37.3 Deg C] 37.6 Deg C *HI* (09/04/23 10:32 AM) Peripheral Pulse Rate [60-100 bpm] 99 bpm (09/04/23 12:22 PM) 111 bpm *HI* (09/04/23 11:26 AM) 144 bpm *HI* (09/04/23 10:32 AM) Respiratory Rate [12-24 br/min] 18 br/min (09/04/23 10:32 AM) Blood Pressure [90-140/60-90 mmHg] 124/76mmHg (09/04/23 10:32 AM) Mean Arterial Pressure, Cuff [65-140 mmHg] 92 mmHg (09/04/23 10:32 AM) Weight 42.6 kg (09/04/23 10:32 AM) Weight Dosing 42.600 kg (09/04/23 10:32 AM) Height 162.5 cm (09/04/23 10:32 AM) Body Mass Index 16.13 kg/m2 (09/04/23 10:32 AM) Body Mass Index Percentile 0.24 1 (09/04/23 10:32 AM) Height/Length Percentile 45.02 2 (09/04/23 10:32 AM) Weight Percentile 0.83 3 (09/04/23 10:32 AM) 1Result Comment: ^~:!Percentile Source -[facility] 2Result Comment: ^~:!Percentile Source -[facility] 3Result Comment: ^~:!Percentile Source -[facility] Social History Social History Type Response Tobacco Never tobacco user, smokeless tobacco daily Tobacco Use:. Sex Female Physician Emergency department Note * KEREN Mello: PERFORM Event Display: ED Note Physician Authored Date: [id number] JOSE ROBERTO BALBUENA :2005 Age:18 years Sex:Female Visit Date:09/04/2023 Primary Care Physician: MELVA WATTS APRN Basic Information Time Seen: KEREN Mello / 09/04/2023 10:24 Chief Complaint Patient in with complaints with reports of sore throat, body aches, and cough for a couple of days. History Of Present Illness: 18-year-old female here for concern of sore throat and cough. ??Explains that she has been treated for strep twice in the past month??1 treatment of penicillin??at the end of July and then another round of penicillin??prescribed a week ago.?? She did have symptom resolution with the first round of penicillin however with the second when she is continue to have a sore throat??she describes odynophagia but no dysphagia.?? Has also had a nonproductive cough for the past 10 days. ??No fevers at home. ??Denies any abdominal pain nausea or vomiting. ??No sick contacts. ??Patient states that she??has had strep frequently in the past. Review of Systems: See HPI Physical Exam Vitals & Measurements T:??37.6?C ??(Oral)?? HR:??99??(Peripheral)?? RR:??18?? BP:??124/76?? SpO2:??100%?? HT:??45.02??(Percentile)?? HT:??162.5??cm?? WT:??0.83??(Percentile)?? WT:??42.6??kg?? BMI:??0.24??(Percentile)?? BMI:??16.13?? General: Patient is alert and engaging, appears well. Is in no acute distress. Speaking comfortablyin full sentences.?? Constitutional: No fevers, chills or diaphoresis.?? HEENT: Head normocephalic and atraumatic. Neck supple with FROM Trachea midline. EOMs intact w/o pain.?? TMs visualized bilaterally with normal color and landmarks present w/o erythema or effusion.?Posterior pharynx erythematous. ??Tonsils 3+ bilaterally, not touching, no erythema exudate. ??Uvula??midline.?? Cervical chain lymph nodes present??pea-sized??and mobile. Respiratory: ??No obvious work of breathing, regular [...] mood without obvious ??affect.?? Medical Decision Making: Well-appearing 18-year-old female here for concerns of continued sore throat. ??Vitals obtained andreviewed. ??Temperature elevated at 37.6 and initially heart rate was 140 bpm. ??She appears in no acute distress.?? Exam as described above. ??Will be given fluids and Tylenol. ??Heart rate did decrease to 111 after??some fluids.?? Will obtain labs a drop test, monotest viral testing as well as a chest x-ray.?Heart rate continued to decrease and normalized to 99 bpm once fluids completed. ??No evidence of acute??findings on chest x-ray and lab work otherwise unremarkable. ??[place] negative. ??No leukocytosis present.?? Patient refused multiple times??to obtain the strep test. ??Nursing staff went in there twice??and??explained??to her??that we would be very??cognizant and gentle with the test and make sure we are waiting the uvula which can cause vomiting.?? We did explain to the patient that vomiting is a common occurrence with a strep test and she can be given medication??and then??emesis bag.?? I went in there again and talk to the patient about the importance of strep testing for this??in order to discuss the appropriate treatment. ??I reassured her that??otherwise labs??were unremarkable??and the importance of getting this testing done. ??At this point patient refused againand states that she would just like to leave??as she does not want to do the strep testing Procedure No Qualifying Data Assessment/Plan Ordered: Strep A (GeneXpert), Swab, Stat Collect, 09/04/23 10:47:00 EDT, Once, Nurse collect, Print Label Patient left AMA as she does not want strep testing done. ??She is being treated with a penicillin by her primary care and I??encouraged her to have follow-up with them as they have been seeing her for recurrent strep throat. ??Return precautions understood. Medication Reconciliation Unchanged albuterol (Albuterol (Eqv-ProAir HFA) 90 mcg/inh inhalation aerosol)2 Puffs Inhale (breathe in) every 6 hours for 30 Days. Refills: 0. ?? medroxyPROGESTERone (Depo-Provera Contraceptive 150 [...] encounter status Tonsillitis Historical No qualifying data Medication Administration Given Sodium Chloride 0.9%, 1000 mL, Hydration Bolus acetaminophen, 600 mg, IV Piggyback Allergies No Known Allergies No Known Medication Allergies Social History Alcohol Never Electronic Cigarette/Vaping Electronic Cigarette Use: Use, within last 90 days. Use per Day: 1-25 Inhales/day. Tobacco Never tobacco user, smokeless tobacco daily Tobacco Use:. Diagnostic Results XR Chest 2 Views 09/04/2023 11:43 EDT XR Chest 2 Views ?? 09/04/23 11:40:37 EXAM DESCRIPTION: XR Chest 2 Views ?? 09/04/2023 ?? INDICATION: CHEST PAIN ?? COMPARISON: 06/12/2020 ?? FINDINGS: Clear lungs with no focal infiltrate or pulmonary edema. ?? Normal cardiomediastinal contour. ?? Normal pleural margins with no pleural effusion or pneumothorax. ?? IMPRESSION: Normal PA and lateral views of the chest. ? JOB #: [id number] Electronically Signed By: ?? Signed By: Kiet Ragsdale MD Lab Results CBC and Differential?? LATEST RESULTS?? HISTORICAL RESULTS?? WBC?? 09/04/23 10:59?? 7.2?? 08/28/23?? 3.9 ??Low?? RBC?? 09/04/23 10:59?? 4.47?? 08/28/23?? 4.55?? Hgb?? 09/04/23 10:59?? 13.2?? 08/28/23?? 13.1?? Hct?? 09/04/23 10:59?? 38.4?? 08/28/23?? 39.0?? MCV?? 09/04/23 10:59?? 85.9?? 08/28/23?? 85.9?? MCH?? 09/04/23 10:59?? 29.4?? 08/28/23?? 28.9?? MCHC?? 09/04/23 10:59?? 34.2?? 08/28/23?? 33.7?? RDW-CV?? 09/04/23 10:59?? 12.9?? 08/28/23?? 12.7?? Platelets?? 09/04/23 10:59?? 226?? 08/28/23?? 281?? MPV?? 09/04/23 10:59?? 8.5?? 08/28/23?? 8.3?? Neutro Auto?? 09/04/23 10:59?? 81.8 ??High?? 08/28/23?? 60.8?? Lymph Auto?? 09/04/23 10:59?? 9.9 ??Low?? 08/28/23?? 24.0?? [place] Auto?? 09/04/23 10:59?? 7.6?? 08/28/23?? 12.4 ??High?? Eos, Auto?? 09/04/23 10:59?? 0.30?? 08/28/23?? 2.20?? Basophil Auto?? 09/04/23 10:59?? 0.4?? 08/28/23?? 0.6?? Neutro Absolute?? 09/04/23 10:59?? 5.9?? 08/28/23?? 2.3?? Lymph Absolute?? 09/04/23 10:59?? 0.7 ??Low?? 08/28/23?? 0.9 ??Low?? [place] Absolute?? 09/04/23 10:59?? 0.5?? 08/28/23?? 0.5?? Eos Absolute?? 09/04/23 10:59?? 0.0?? 08/28/23?? 0.1?? Baso Absolute?? 09/04/23 10:59?? 0.0?? 08/28/23?? 0.0? Routine Chemistry?? LATEST RESULTS?? HISTORICAL RESULTS?? Sodium Level?? 09/04/23 10:59?? 136?? 08/28/23?? 139?? Potassium Level?? 09/04/23 10:59?? 3.8?? 08/28/23?? 4.2?? Chloride Level?? 09/04/23 10:59?? 106?? 08/28/23?? 107?? CO2?? 09/04/23 10:59?? 22?? 08/28/23?? 24?? Alk Phos?? 09/04/23 10:59?? 78?? 08/28/23?? 70?? AST?? 09/04/23 10:59?? 16?? 08/28/23?? 18?? ALT?? 09/04/23 10:59?? 11?? 08/28/23?? 15?? BUN?? 09/04/23 10:59?? 8?? 08/28/23?? 12?? Glucose Level?? 09/04/23 10:59?? 84?? 08/28/23?? 78?? Creatinine Level?? 09/04/23 10:59?? 0.40 ??Low?? 08/28/23?? 0.60?? BUN/Creat Ratio?? 09/04/23 10:59?? 20.0?? 08/28/23?? 20.0?? eGFR CKD-EPI?? 09/04/23 10:59?? 146?? 08/28/23?? 133?? Calcium Level?? 09/04/23 10:59?? 9.2?? 08/28/23?? 9.6?? Protein Total?? 09/04/23 10:59?? 7.3?? 08/28/23?? 7.1?? Albumin Level?? 09/04/23 10:59?? 4.6?? 08/28/23?? 4.6?? Globulin?? 09/04/23 10:59?? 2.7?? 08/28/23?? 2.5?? A/G Ratio?? 09/04/23 10:59?? 1.7?? 08/28/23?? 1.8?? Bilirubin Total?? 09/04/23 10:59?? 0.5?? 08/28/23?? 0.4?? Anion Gap?? 09/04/23 10:59?? 8.0?? 08/28/23?? 8.0?? Osmolality?? 09/04/23 10:59?? 270 ??Low?? 08/28/23?? 276? Infectious Disease?? LATEST RESULTS?? HISTORICAL RESULTS?? Mononucleosis Screen?? 09/04/23 10:59?? Negative? SARS-CoV-2(Covid19)PCR(GXpert COVFLURSV)?? 09/04/23 11:25?? Negative?? 03/16/23?? Negative?? Flu A (GXpert COVFLURSV)?? 09/04/23 11:25?? Negative?? 03/16/23?? Negative?? Flu B (GXpert COVFLURSV)?? 09/04/23 11:25?? Negative?? 03/16/23?? Negative?? RSV (GXpert COVFLURSV)?? 09/04/23 11:25?? Negative?? 03/16/23?? Negative? Electronically Signed on 09/04/2023 12:43 EDT KEREN Mello Patient Care team information Care Team Personnel Name: MELVA WATTS APRN Position: No Access Member Role: Primary Care Physician Address: Address: [facility] [address] [place] [address]- Name: Krystal Kurtz APRN Position: Physician Member Role: Nurse Practitioner Address: Address: [address] [place] [address] [address] [place] [address]- Care Team Related Persons Name: FAIZA BALBUENA
--- OUTSIDE RECORDS SUMMARY | 2024-02-03 12:35 | XMS_ITS | Continuity of Care Document ---
Author Organization [facility] Address [address] [place] [address] Care Team Providers Care Trauma Surgeon Name Role Phone MELVA WATTS APRN Primary Care Physician Encounter LTTL_[place] FIN NBR [id number] Date(s): 09/25/23 - 09/25/[address] [address] Encounter Diagnosis Rash and other nonspecific skin eruption(Final) - Discharge Disposition: Home or Self Care Attending Physician: JAMES ELIZABETH Admitting Physician: JAMES ELIZABETH Referring Physician: JAMES ELIZABETH Allergies, Adverse Reactions, Alerts No Known Allergies [...] TID, # 10 tab, 0 Refill(s), Pharmacy: [facility] #[id number], 162, cm, 02/25/23 11:58:00 EST, Height, 40.8, [...] Laboratory List Name Date CBC w/ Diff 09/25/23 Comprehensive Metabolic Panel (CMP) 09/24 TSH w/ Rflx to Free T4 09/25/23 Automated Diff 09/25/23 Most recent to oldest [Reference Range]: 1 WBC [4.8-10.8 K/mcL] 5.5 K/mcL (09/25/23 11:55 AM) RBC [4.20-5.40 Million/mcL] 4.50 Million /mcL (09/25/23 11:55 AM) Neutro Auto [42.2-75.2 %] 62.0 % (09/25/23 11:55 AM) Lymph Auto [20.5-51.1 %] 24.8 % (09/25/23 11: AM) [place] Auto [1.7-9.3 %] 9.6 % *HI* (09/25/23: AM) Basophil Auto [0.0-0.8 %] 0.8 % (09/25/23: AM) BUN [7-25 mg/dL] 9 mg/dL (09/25/23 11:55 AM) Glucose Level [70-109 mg/dL] 81 mg/dL (09/25/23: AM) Potassium Level [3.5-5.1 mmol/L] 3.6 mmo l/L (09/25/23: AM) Baso Absolute [0.0-0.2 K/mcL] 0.0 K/mcL (09/25/23: AM) MCV [81.0-99.0 fL] 85.7 fL (09/25/23:55 AM) AST [13-39 IntlUnit/L] 15 IntlUnit/L (09/25/23 11:55 AM) ALT [7-52 IntlUnit/L] 12 IntlUnit/L (09/25/23 11:55 AM) MCHC [32.0-37.0 g/dL] 33.6 g/dL (09/25/23 11: AM) Osmolality [275-295 mOsm/kg] 275 mOsm/kg (09/25/23: AM) Sodium Level [136-145 mmol/L] 139 mmol/L (09/25/23 11:55 AM) Lymph Absolute [1.2-3.4 K/mcL] 1.4 K/mcL (09/25/23 11:55 AM) Hct [37.0-47.0 %] 38.6 % (09/25/23: AM) Calcium Level [8.6-10.3 mg/dL] 9.2 mg/dL (09/25/23 11:55 AM) [place] Absolute [0.1-0.6 K/mcL] 0.5 K/mcL (09/25/23 11:55 AM) Albumin Level [3.5-5.7 g/dL] 4.6 g/dL (09/25/23 11:55 AM) Protein Total [6.4-8.9 g/dL] 6.6 g/dL (09/25/23 11:55 AM) MCH [27.0-31.0 pg] 28.8 pg (09/25/23 11:55 AM) Neutro Absolute [1.4-6.5 K/mcL] 3.4 K/mc L (09/25/23 11:55 AM) Bilirubin Total [0.3-1.0 mg/dL] 0.7 mg/d L (09/25/23 11:55 AM) Hgb [12.0-16.0 g/dL] 13.0 g/dL (09/25/23 11:55 AM) Alk Phos [34-104 IntlUnit/L] 61 IntlUnit /L (09/25/23 11:55 AM) MPV [7.4-10.4 fL] 8.6 fL (09/25/23 11:55 AM) Platelets [130-400 K/mcL] 259 K/mcL (09/25/23 11:55 AM) CO2 [21-31 mmol/L] 26 mmol/L (09/25/23 11:55 AM) Eos Absolute [0.0-0.2 K/mcL] 0.2 K/mcL (09/25/23 11:55 AM) TSH [0.45-5.33 mcIntlUnit/mL] 0.72 mcInt lUnit/mL (09/25/23 11:55 AM) Chloride Level [98-107 mmol/L] 106 mmol/ L (09/25/23 11:55 AM) RDW-CV [11.5-14.5 %] 13.5 % (09/25/23 11: AM) A/G Ratio [1.0-2.5 g/dL] 2.3 g/dL (09/25/23 11:55 AM) BUN/Creat Ratio [8.0-20.0] 15.0 (09/25/23 11:55 AM) Globulin [2.3-3.5 g/dL] 2.0 g/dL *LOW* (09/25/23 11:55 AM) Creatinine Level [0.60-1.20 mg/dL] 0.60 mg/dL (09/25/23 11:55 AM) Anion Gap [3.0-12.0] 7.0 (09/25/23 11:55 AM) Eos, Auto [0.00-3.00 %] 2.80 % (09/25/23 11:55 AM) eGFR CKD-EPI [>=60 mL/min/1.73 m2] 133 m L/min/1.73 m2 (09/25/23 11:55 AM) Social History Social History Type Response Tobacco Never tobacco user, smokeless tobacco daily Tobacco Use:. Sex Female Patient Care team information Care Team Personnel Name: MELVA WATTS APRN Position: No Access Member Role: Primary Care Physician Address: Address: [facility] [address] [place] [address]- Name: Krystal Kurtz APRN Position: Physician Member Role: Nurse Practitioner Address: Address: [address] [place] [address] [address] [place], [place] [address] Care Team Related Persons Name: FAIZA BALBUENA
--- OUTSIDE RECORDS SUMMARY | 2024-02-03 12:35 | XMS_ITS | Continuity of Care Document ---
Author Organization [facility] Ambulatory Clinics Address [address] [place] [address] Care Team Providers Care Cap Blocker Name Role Phone MELVA WATTS APRN Primary Care Physician Encounter [facility] NBR [id number] Date(s): 08/27/23 - 08/27/23 [facility] Ambulatory Clinics [address] [place], [place] [address] Encounter Diagnosis Gastroenteritis(Discharge Diagnosis) - 08/27/23 Diarrhea(Discharge Diagnosis) - 08/27/23 Noninfective gastroenteritis and colitis, unspecified(Final) - Discharge Disposition: Home or Self Care Attending Physician: Hiwot Pelaez PA-C Allergies, Adverse Reactions, Alerts No Known Allergies Assessment and Plan Extracted from: Title:Office Visit Note Author:KEREN Soler Date:08/27/23 1.??Gastroenteritis??K52.9 ??Patient presenting with 4 days of intermittent abdominal pain, cramping, and loose, watery diarrhea occurring every 30 minutes.?She is hemodynamically stable on exam and appears comfortable and well-hydrated.?? She did have darker stools after taking Pepto-Bismol but not at the onset of symptoms.?? She has taken antibiotics recently. ??No??travel to underdeveloped countries. ??Her abdominal exam??is reassuring today, she has??mild tenderness but no??acute localized tenderness. ??Her pain has been intermittent which is also reassuring.?? I recommended that we obtain stool studies to rule out C. difficile colitis given her recent antibiotic use.?? We also attempted to??obtain basic blood work including a CBC, metabolic panel, CRP, sed rate however after multiple attempts we were unsuccesful.?? If stool sample is negative and inflammatory??markers elevated I would recommend urgent referral to GI.?? In the meantime, recommended that she purchase hall-wyp-sgfggit Mylanta.?? Encouraged that she stay well-hydrated??with water and replete??electrolytes with Gatorade or Pedialyte.?She should avoid any antidiarrheals until??we have the results of her studies.?? We discussed that if she develops any severe, localizing abdominal pain that is persisting, especially if associated??with??fever,??persistent vomiting, weakness or dizziness??she should go to the emergency department.?? She agrees with plan and will recheck??as needed Ordered: C-Reactive Protein, Blood, Routine, 08/27/23, Once, Lab Collect, Gastroenteritis, Order for future visit CBC w/ Diff, Blood, Routine, 08/27/23, Once, Lab Collect, Gastroenteritis, Order for future visit Comprehensive Metabolic Panel, Blood, Routine, 08/27/23, Once, Lab Collect, Gastroenteritis, Order for future visit GI Panel (BioFire), Stool, Routine Collect, 08/27/23, Once, Nurse collect, Print Label, Gastroenteritis Diarrhea, Order for future visit Sedimentation Rate (ESR), Blood, Routine, 08/27/23, Once, Lab Collect, Gastroenteritis, Order for future visit ?? 2.??Diarrhea??R19.7 Ordered: GI Panel (BioFire), Stool, Routine Collect, 08/27/23, Once, Nurse collect, Print Label, Gastroenteritis Diarrhea, Order for future visit ?? Future Appointments Future Scheduled Tests Laboratory* [...] hr, # 8.5 g, 0 Refill(s), Pharmacy: [facility] #[id number], 162, cm, 02/25/23 11:58:00 EST, Height, 42, kg, 03/16/23 18:01:00 EST, Weight Dosing Start Date: 03/17/23 Stop Date: 04/16/23 Status: Ordered Depo-Provera Contraceptive 150 mg/mL intramuscular suspension 1 Unknown, 0 Refill(s) Start Date: 11/29/21 Status: Ordered ondansetron 4 mg oral tablet, disintegrating 4 mg = 1 tab, Oral, TID, # 10 tab, 0 Refill(s), Pharmacy: [facility] #[id number], 162, cm, 02/25/23 11:58:00 EST, Height, 40.8, kg, 02/25/23 12:04:00 EST, Weight Dosing Start Date: 02/25/23 Status: Ordered penicillin V potassium 250 mg/5 mL oral liquid 500 mg = 10 mL, Oral, every 8 hr, # 300 mL, 0 Refill(s), Pharmacy: [facility] #[id number], 162.56, cm, 04/12/23 8:47:00 EST, Height, 42.64, [...] [36.6-38.1 Deg C] 3 6.8 Deg C (08/27/23 6:22 PM) Peripheral Pulse Rate [60-100 bpm] 100 b pm (08/27/23 6:22 PM) Blood Pressure [90-140/60-90 mmHg] 112/6 5mmHg (08/27/23 6:22 PM) Mean Arterial Pressure, Cuff [65-140 mmH g] 81 mmHg (08/27/23 6:22 PM) Weight 41.82 kg (08/27/23 6:22 PM) Weight Measured (lbs) 92.197 lb (08/27/23 6:22 PM) Weight Dosing 41.820 kg (08/27/23 6:22 PM) Weight Percentile 0.50 1 (08/27/23 6:22 PM) 1Result Comment: ^~:!Percentile Source -[facility] Social History Social History Type Response Tobacco Never tobacco user, smokeless tobacco daily Tobacco Use:. Sex Female Hospital Discharge Instructions Patient Education 08/27/2023 18:09:57 Diarrhea, Adult, Uohg-gp-Szpw Diarrhea, Adult Diarrhea is when you pass loose and sometimes watery poop (stool) often. Diarrhea can make you feelweak and cause you to lose water in your body (get dehydrated). Losing water in your body can causeyou to: ??? Feel tired and thirsty. ??? Have a dry mouth. ??? Go pee (urinate) less often. Diarrhea often lasts 2???3 days. It can last longer if it is a sign of something more serious. Be sure to treat your diarrhea as told by your doctor. Follow these instructions at home: Eating and drinking Follow these instructions as told by your doctor: ??? Take an ORS (oral rehydration solution). This is a drink that helps you replace fluids and minerals your body lost. It is sold at pharmacies and stores. ??? Drink enough fluid to keep your pee (urine) pale yellow. ??? Drink fluids such as: ??? Water. You can also get fluids by sucking on ice chips. ??? Diluted fruit juice. ??? Low-calorie sports drinks. ??? Milk. ??? Avoid drinking fluids that have a lot of sugar or caffeine in them. These include soda, energy drinks, and regular sports drinks. ??? Avoid alcohol. ??? Eat bland, dhco-jj-ekdloj foods in small amounts as you are able. These foods include: ??? Bananas. ??? Applesauce. ??? Rice. ??? Low-fat (lean) meats. ??? [place]. ??? Crackers. ??? Avoid spicy or fatty foods. Medicines ??? Take jrxr-bfc-lpsrimn and prescription medicines only as told by your doctor. ??? If you were prescribed antibiotics, take them as told by your doctor. Do not stop taking them even if you start to feel better. General instructions ??? Wash your hands often using soap and water for 20 seconds. If soap and water are not available,use hand rfid systems engineer. Others in your home should wash their hands as well. Wash your hands: ??? After using the toilet or changing a diaper. ??? Before preparing, cooking, or serving food. ??? While caring for a sick person. ??? While visiting someone in a hospital. ??? Rest at home while you get better. ??? Take a warm bath to help with any burning or pain from having diarrhea. ??? Watch your condition for any changes. Contact a doctor if: ??? You have a fever. ??? Your diarrhea gets worse. ??? You have new symptoms. ??? You vomit every time you eat or drink. ??? You feel light-headed, dizzy, or you have a headache. ??? You have muscle cramps. ??? You have signs of losing too much water in your body, such as: ??? Dark pee, very little pee, or no pee. ??? Cracked lips. ??? Dry mouth. ??? Sunken eyes. ??? Sleepiness. ??? Weakness. ??? You have bloody or black poop or poop that looks like tar. ??? You have very bad pain, cramping, or bloating in your belly (abdomen). ??? Your skin feels cold and clammy. ??? You feel confused. Get help right away if: ??? You have chest pain. ??? Your heart is beating very quickly. ??? You have trouble breathing or you are breathing very quickly. ??? You feel very weak or you faint. These symptoms may be an emergency. Get help right away. Call 911. ??? Do not wait to see if the symptoms will go away. ??? Do not drive yourself to the hospital. This information is not intended to replace advice given to you by your health care provider. Make sure you discuss any questions you have with your health care provider. Document Revised: 07/16/2022 Document Reviewed: 07/16/2022 [employer] Patient Education ?? 2022 [employer]. 08/27/2023 18:09:56 Food Choices to Help Relieve Diarrhea, Adult Food Choices to Help Relieve Diarrhea, Adult Diarrhea can make you feel weak and cause you to become dehydrated. Dehydration is a condition in which there is not enough water or other fluids in the body. It is important to choose the right foods and drinks to: ??? Relieve diarrhea. ??? Replace lost fluids and nutrients. ??? Prevent dehydration. What are tips for following this plan? Relieving diarrhea ??? Avoid foods that make your diarrhea worse. These may include: ??? Foods and drinks that are sweetened with high-fructose corn syrup, honey, or sweeteners such asxylitol, sorbitol, and mannitol. Check food labels for these ingredients. ??? Fried, greasy, or spicy foods. ??? Raw fruits and vegetables. ??? Eat foods that are rich in probiotics. These include foods such as yogurt and fermented milk products. Probiotics can help increase healthy bacteria in your stomach and intestines (gastrointestinal or GI tract). This may help digestion and stop diarrhea. ??? If you have lactose intolerance, avoid dairy products. These may make your diarrhea worse. ??? Take medicine to help stop diarrhea only as told by your health care provider. Replacing nutrients ??? Eat bland, lxqk-oz-ezybab foods in small amounts as you are able, until your diarrhea starts toget better. These foods include bananas, applesauce, rice, toast, and crackers. ??? Over time, add nutrient-rich foods as your body tolerates them or as told by your health care provider. These include: ??? Well-cooked protein foods, such as eggs, lean meats like fish or chicken without skin, and tofu. ??? Peeled, seeded, and soft-cooked fruits and vegetables. ??? Low-fat dairy products. ??? Whole grains. ??? Take vitamin and mineral supplements as told by your health care provider. Preventing dehydration ??? Start by sipping water or a solution to prevent dehydration (oral rehydration solution, or ORS). This is a drink that helps replace fluids and minerals your body has lost. You can buy an ORS at pharmacies and retail stores. ??? Try to drink at least 8???10 cups (2,000???2,500 mL) of fluid each day to help replace lost fluids. If your urine is pale yellow, you are getting enough fluids. ??? You may drink other liquids in addition to water, such as fruit juice that you have added waterto (diluted fruit juice) or low-calorie sports drinks, as tolerated or as told by your health care provider. ??? Avoid drinks with caffeine, such as coffee, tea, or soft drinks. ??? Avoid alcohol. This information is not intended to replace advice given to you by your health care provider. Make sure you discuss any questions you have with your health care provider. Document Revised: 07/16/2022 Document Reviewed: 07/16/2022 [employer] Patient Education ?? 2022 [employer] Physician Outpatient Note * Hiwot Pelaez PA-C: PERFORM Event Display: Office Clinic Note Physician Authored Date: [id number] JOSE ROBERTO BALBUENA :2005 Age:18 years Sex:Female Visit Date:08/27/2023 Primary Care Physician: MELVA WATTS APRN Chief Complaint since friday night stomach pain and stomach pressure, nausea, watery stool, blood in stool, feelingweak and faint. History of Present Illness This is a 18-year-old female who presents for evaluation of intermittent abdominal pain and??persistent diarrhea. ??Patient reports that since Friday she has had profuse, watery diarrhea, occurring every 30 minutes.?? She has been taking Pepto-Bismol with mild temporary relief. ??She notes that shehas been experiencing upper abdominal pain as well as lower abdominal??pain. ??This pain is intermittent??and can last anywhere from a few minutes??for up to an hour. ??Pain does seem to improve witha bowel movement. ??She has felt nauseous but has not vomited.?? She is staying??well hydrated??andtolerating fluids.??She has not had a fever. ??She has felt??slightly depleted and weak.?? She doesnot have any known history of inflammatory bowel disease.?? She has been on antibiotics recently.??She has not traveled outside of the country or been drinking from any streams.?? Denies any unusualfood intake.?? She notes that after taking the Pepto-Bismol she did have dark stools which concerned her.?? She has also had faint streaks of blood when she wipes. ??Denies any rectal pain. Physical Exam Vitals & Measurements T:??36.8?C ??(Tympanic)?? HR:??100??(Peripheral)?? BP:??112/65?? SpO2:??100%?? WT:??41.82??kg?? WT:??0.50??(Percentile)?? Pain Score:??6?? General: A&O x 3, well-built and hydrated, no acute distress Heart: normal S1S2, no murmurs, rubs, gallops Lungs: equal and symmetric respiratory effort, lungs clear to auscultation without wheezes, rales, rhonchi Abdomen: soft, non-distended, bowel sounds normoactive,??mild epigastric tenderness, mild??diffuse??suprapubic tenderness, no rebound, guarding, rigidity. ??Negative McBurney's point. ??Negative heelstrike. Assessment/Plan 1.??Gastroenteritis??K52.9 ??Patient presenting with 4 days of intermittent abdominal pain, cramping, and loose, watery diarrhea occurring every 30 minutes.?She is hemodynamically stable on exam and appears comfortable and well-hydrated.?? She did have darker stools after taking Pepto-Bismol but not at the onset of symptoms.?? She has taken antibiotics recently. ??No??travel to underdeveloped countries. ??Her abdominal exam??is reassuring today, she has??mild tenderness but no??acute localized tenderness. ??Her pain has been intermittent which is also reassuring.?? I recommended that we obtain stool studies to rule out C. difficile colitis given her recent antibiotic use.?? We also attempted to??obtain basic bloodwork including a CBC, metabolic panel, CRP, sed rate however after multiple attempts we were unsuccesful.?? If stool sample is negative and inflammatory??markers elevated I would recommend urgent referral to GI.?? In the meantime, recommended that she purchase wnxj-xet-tenoyhc Mylanta.?? Encouragedthat she stay well-hydrated??with water and replete??electrolytes with Gatorade or Pedialyte.?She should avoid any antidiarrheals until??we have the results of her studies.?? We discussed that if she develops any severe, localizing abdominal pain that is persisting, especially if associated??with ??fever,??persistent vomiting, weakness or dizziness??she should go to the emergency department.?? She agrees with plan and will recheck??as needed Ordered: C-Reactive Protein, Blood, Routine, 08/27/23, Once, Lab Collect, Gastroenteritis, Order for future visit CBC w/ Diff, Blood, Routine, 08/27/23, Once, Lab Collect, Gastroenteritis, Order for future visit Comprehensive Metabolic Panel, Blood, Routine, 08/27/23, Once, Lab Collect, Gastroenteritis, Order for future visit GI Panel (BioFire), Stool, Routine Collect, 08/27/23, Once, Nurse collect, Print Label, Gastroenteritis Diarrhea, Order for future visit Sedimentation Rate (ESR), Blood, Routine, 08/27/23, Once, Lab Collect, Gastroenteritis, Order for future visit ?? 2.??Diarrhea??R19.7 Ordered: GI Panel (BioFire), Stool, Routine Collect, 08/27/23, Once, Nurse collect, Print Label, Gastroenteritis Diarrhea, Order for future visit ?? Patient Instructions While in urgent care we obtained stool samples today. ??I will contact you with these results. ??Wealso obtain blood work to??look at your blood counts and check inflammatory markers.?? At this time, we have to be cautious about which medications are used for your diarrhea??before we rule out??C. difficile colitis??or inflammatory bowel disease.?? I recommend that you go to [facility] and arapseckdyyc-pbt-ncwzdso Mylanta maximum strength.?? This medication should help??alleviate your??GI distress in the meantime.?? I would stop the??Pepto- Bismol.?? You can continue to take Zofran as needed upto 3 times a day. ??I recommend??drinking plenty of fluids and replating electrolytes with Gatoradeor Pedialyte.?? Follow a bland diet and progress as tolerated. ??I will contact you pending the results of the studies that were performed this evening. ??If at any point you develop severe, localizing abdominal pain,??significant dizziness, fever,??persistent vomiting please go to the emergency department Future Orders C-Reactive Protein, Blood, Routine, 08/27/23, Once, Lab Collect, Gastroenteritis, Order for future visit CBC w/ Diff, Blood, Routine, 08/27/23, Once, Lab Collect, Gastroenteritis, Order for future visit Comprehensive Metabolic Panel, Blood, Routine, 08/27/23, Once, Lab Collect, Gastroenteritis, Order for future visit GI Panel (BioFire), Stool, Routine Collect, 08/27/23, Once, Nurse collect, Print Label, Gastroenteritis Diarrhea, Order for future visit Sedimentation Rate (ESR), Blood, Routine, 08/27/23, Once, Lab Collect, Gastroenteritis, Order for future visit Patient Education Diarrhea, Adult, Urmm-nw-Gnsm Food Choices to Help Relieve Diarrhea, Adult Problem List/Past Medical History Ongoing Amenorrhea [...] Comments : Unit: Unknown Electronically Signed on 08/27/2023 19:22 EDT Hiwot Pelaez PA-C Outpatient Summary note * Hiwot Pelaez PA-C: PERFORM Event Display: Ambulatory Patient Summary Authored Date: [id number] JOSE ROBERTO BALBUENA :2005 Age:18 years Sex:Female Visit Date:08/27/2023 Primary Care Physician: MELVA WATTS APRN Ambulatory Visit Instructions We would like to thank you for allowing us to assist you with your healthcare needs. The following includes patient education materials and information regarding your injury/illness. Your Next Steps Instructions From Your Care Team While in urgent care we obtained stool samples today. ??I will contact you with these results. ??Wealso obtain blood work to??look at your blood counts and check inflammatory markers.?? At this time, we have to be cautious about which medications are used for your diarrhea??before we rule out??C. difficile colitis??or inflammatory bowel disease.?? I recommend that you go to [facility] and fpfprjpmmowq-arz-qhxeews Mylanta maximum strength.?? This medication should help??alleviate your??GI distress in the meantime.?? I would stop the??Pepto- Bismol.?? You can continue to take Zofran as needed upto 3 times a day. ??I recommend??drinking plenty of fluids and replating electrolytes with Gatoradeor Pedialyte.?? Follow a bland diet and progress as tolerated. ??I will contact you pending the results of the studies that were performed this evening. ??If at any point you develop severe, localizing abdominal pain,??significant dizziness, fever,??persistent vomiting please go to the emergency department Scheduled Future Appointments Friday 9:30 AM EDT ?? With: KEREN Mcclain Where: [facility] Otolaryngology Status: Confirmed You Need to Complete the Following C-Reactive Protein, Blood, Routine, 08/27/23, Once, Lab Collect, Gastroenteritis, Order for future visit CBC w/ Diff, Blood, Routine, 08/27/23, Once, Lab Collect, Gastroenteritis, Order for future visit Comprehensive Metabolic Panel, Blood, Routine, 08/27/23, Once, Lab Collect, Gastroenteritis, Order for future visit Sedimentation Rate (ESR), Blood, Routine, 08/27/23, Once, Lab Collect, Gastroenteritis, Order for future visit Medications What How [...] hours Pharyngitis Duration: 10 Days Your Summary Your Diagnosis Gastroenteritis Diarrhea Problems Ongoing - Any problem that you are currently receiving treatment for. Amenorrhea Anxiety Decrease in appetite Epigastric pain Lipoma of abdominal wall Loss of taste Major depression, single episode Menometrorrhagia Nausea Patient encounter status Tonsillitis Your Care Team Attending Physician - Hiwot Pelaez PA-C Primary Care Physician - MELVA WATTS APRN Discharge Vitals Temperature??(Tympanic) 98.2 ??F (36.8 ??C) Heart Rate??(Peripheral) 100 Blood Pressure?? 112/65?? SpO2?? 100% Weight?? 92.21 lb (41.82 kg) Allergies No Known Allergies No Known Medication Allergies Education Materials Diarrhea, Adult Diarrhea is when you pass loose and sometimes watery poop (stool) often. Diarrhea can make you feelweak and cause you to lose water in your body (get dehydrated). Losing water in your body can causeyou to: ? Feel tired and thirsty. ? Have a dry mouth. ? Go pee (urinate) less often. Diarrhea often lasts 2???3 days. It can last longer if it is a sign of something more serious. Be sure to treat your diarrhea as told by your doctor. Follow these instructions at home: Eating and drinking Follow these instructions as told by your doctor: ? Take an ORS (oral rehydration solution). This is a drink that helps you replace fluids and mineralsyour body lost. It is sold at pharmacies and stores. ? Drink enough fluid to keep your pee (urine) pale yellow. ? Drink fluids such as: ? Water. You can also get fluids by sucking on ice chips. ? Diluted fruit juice. ? Low-calorie sports drinks. ? Milk. ? Avoid drinking fluids that have a lot of sugar or caffeine in them. These include soda, energy drinks, and regular sports drinks. ? Avoid alcohol. ? Eat bland, jcjy-fh-omwqiv foods in small amounts as you are able. These foods include: ? Bananas. ? Applesauce. ? Rice. ? Low-fat (lean) meats. ? [place]. ? Crackers. ? Avoid spicy or fatty foods. Medicines ? Take wcyr-otg-pamkbwh and prescription medicines only as told by your doctor. ? If you were prescribed antibiotics, take them as told by your doctor. Do not stop taking them even if you start to feel better. General instructions ? Wash your hands often using soap and water for 20 seconds. If soap and water are not available, usehand rfid systems engineer. Others in your home should wash their hands as well. Wash your hands: ? After using the toilet or changing a diaper. ? Before preparing, cooking, or serving food. ? While caring for a sick person. ? While visiting someone in a hospital. ? Rest at home while you get better. ? Take a warm bath to help with any burning or pain from having diarrhea. ? Watch your condition for any changes. Contact a doctor if: ? You have a fever. ? Your diarrhea gets worse. ? You have new symptoms. ? You vomit every time you eat or drink. ? You feel light-headed, dizzy, or you have a headache. ? You have muscle cramps. ? You have signs of losing too much water in your body, such as: ? Dark pee, very little pee, or no pee. ? Cracked lips. ? Dry mouth. ? Sunken eyes. ? Sleepiness. ? Weakness. ? You have bloody or black poop or poop that looks like tar. ? You have very bad pain, cramping, or bloating in your belly (abdomen). ? Your skin feels cold and clammy. ? You feel confused. Get help right away if: ? You have chest pain. ? Your heart is beating very quickly. ? You have trouble breathing or you are breathing very quickly. ? You feel very weak or you faint. These symptoms may be an emergency. Get help right away. Call 911. ? Do not wait to see if the symptoms will go away. ? Do not drive yourself to the hospital. This information is not intended to replace advice given to you by your health care provider. Make sure you discuss any questions you have with your health care provider. Document Revised: 07/16/2022 Document Reviewed: 07/16/2022 [employer] Patient Education ?? 2022 [employer] Food Choices to Help Relieve Diarrhea, Adult Diarrhea can make you feel weak and cause you to become dehydrated. Dehydration is a condition in which there is not enough water or other fluids in the body. It is important to choose the right foods and drinks to: ? Relieve diarrhea. ? Replace lost fluids and nutrients. ? Prevent dehydration. What are tips for following this plan? Relieving diarrhea ? Avoid foods that make your diarrhea worse. These may include: ? Foods and drinks that are sweetened with high-fructose corn syrup, honey, or sweeteners such as xylitol, sorbitol, and mannitol. Check food labels for these ingredients. ? Fried, greasy, or spicy foods. ? Raw fruits and vegetables. ? Eat foods that are rich in probiotics. These include foods such as yogurt and fermented milk products. Probiotics can help increase healthy bacteria in your stomach and intestines (gastrointestinal or GI tract). This may help digestion and stop diarrhea. ? If you have lactose intolerance, avoid dairy products. These may make your diarrhea worse. ? Take medicine to help stop diarrhea only as told by your health care provider. Replacing nutrients ? Eat bland, [id number]-vd-[id number] foods in small amounts as you are able, until your diarrhea starts to getbetter. These foods include bananas, applesauce, rice, toast, and crackers. ? Over time, add nutrient-rich foods as your body tolerates them or as told by your health care provider. These include: ? Well-cooked protein foods, such as eggs, lean meats like fish or chicken without skin, and tofu. ? Peeled, seeded, and soft-cooked fruits and vegetables. ? Low-fat dairy products. ? Whole grains. ? Take vitamin and mineral supplements as told by your health care provider. Preventing dehydration ? Start by sipping water or a solution to prevent dehydration (oral rehydration solution, or ORS). This is a drink that helps replace fluids and minerals your body has lost. You can buy an ORS at pharmacies and retail stores. ? Try to drink at least 8???10 cups (2,000???2,500 mL) of fluid each day to help replace lost fluids.If your urine is pale yellow, you are getting enough fluids. ? You may drink other liquids in addition to water, such as fruit juice that you have added water to (diluted fruit juice) or low-calorie sports drinks, as tolerated or as told by your health care provider. ? Avoid drinks with caffeine, such as coffee, tea, or soft drinks. ? Avoid alcohol. This information is not intended to replace advice given to you by your health care provider. Make sure you discuss any questions you have with your health care provider. Document Revised: 07/16/2022 Document Reviewed: 07/16/2022 [employer] Patient Education ?? 2022 [employer] Electronically Signed on: 08/27/2023 19:10 EDTSigned by:EP Patient Care team information Care Team Personnel Name: MELVA WATTS APRN Position: No Access Member Role: Primary Care Physician Address: Address: [facility] [address] [place] [address]- [place] Name: Krystal Kurtz APRN Position: Physician Member Role: Nurse Practitioner Address: Address: [address] [place] [address] [address] [place] [address]- Care Team Related Persons Name: FAIZA BALBUENA
--- OUTSIDE RECORDS SUMMARY | 2024-02-03 12:36 | XMS_ITS | Continuity of Care Document ---
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 Name Role Phone JAMES ELIZABETH Primary Care Physician Encounter LTTL_NH FIN NBR [id number] Date(s): 12/15/23 - 12/15/[address] [id number] Encounter Diagnosis Pelvic pain(Discharge Diagnosis) - 12/15/23 Vaginal bleeding(Discharge Diagnosis) - 12/15/23 Discharge Disposition: Home f/u External Provider Attending Physician: Lokesh Solorio MD Admitting Physician: Lokesh Solorio MD Allergies, Adverse Reactions, Alerts Substance Criticality Severity Reaction Reaction Severity Status penicillin High criticality Moderate Rash Ac tive Assessment and Plan Extracted from: Title:ED Provider Note Author:Lokesh Solorio MD D ate:12/15/23 Assessment/Plan 1.??Pelvic pain??R10.2 Ordered: prochlorperazine 10 mg oral tablet, 10 mg = 1 tab, Oral, TID, PRN nausea/vomiting, X 7 days, # 21 tab, 0 Refill(s), 12/22/23 23:33:00 EST, Pharmacy: [facility] #[id number], 162, cm, 12/15/23 22:27:00 EST, Height, 45, kg, 12/15/23 22:29:00 EST, Weight Dosing ?? 2.??Vaginal bleeding??N93.9 Ordered: prochlorperazine 10 mg oral tablet, 10 mg = 1 tab, Oral, TID, PRN nausea/vomiting, X 7 days, # 21 tab, 0 Refill(s), 12/22/23 23:33:00 EST, Pharmacy: [facility] #[id number], 162, cm, 12/15/23 22:27:00 EST, Height, 45, kg, 12/15/23 22:29:00 EST, Weight Dosing ?? Orders: prochlorperazine, 10 mg = 2 tab, Oral, Tab, every 6 hr for 3 doses, PRN nausea/vomiting, First Dose: 12/15/23 23:30:00 EST, Stop Date: Limited # of times, Physician Stop, Routine Discharge Patient, 12/15/23 23:34:00 EST, Home Independently US Pelvic Complete, *Est. 12/16/23 +/- 2 days, Routine, Reason: pelvic pain, vag bleed; hcg neg, Transport Mode: Ambulatory Patient Education Menorrhagia Pelvic Pain, Female Follow Up With When Contact Information Radiology 12/16/2023 10:30 AM EST Additional Instructions: [facility] for radiology for pelvic ultrasound. ??Arrive with a full bladder. Bryson Granados MD Within [address] [address]- ?? Additional Instructions: Tylenol/Motrin for Pain/Fever Relief Within 1 month Additional Instructions: JOSEFA VELIZ, JAMES COHENVALL Within [address] [phone] ?? Additional Instructions: Addendum by KEREN Webber on December 16, 2023 12:15:36 EST I spoke to the patient via telephone at 12:15 PM on 12/15.?? I informed her of her ultrasound being unremarkable??and she can follow-up with [facility] or return to the emergency department for any new or worsening conditions. 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, Pharmacy: [facility] #[id number], 162, cm, 12/15/23 22:27:00 EST, Height, 45, kg, 12/15/23 22:29:00 EST, Weight Dosing Start Date: 12/15/23 Stop Date: 12/22/23 Status: Ordered Mental Status 12/15/23 Eye Opening Response [place] Spontaneous ly Best Verbal Response [place] Oriented Best Motor Response Belkis Obeys comman [...] Laboratory List Name Date CBC w/ Diff 12/15/23 Comprehensive Metabolic Panel (CMP) 12/14 Lipase Level 12/15/23 Automated Diff 12/15/23 Test Urine Qual 12/15/23 Urinalysis Microscopic 12/15/23 Urinalysis with Micro if Indicated and C ulture if Indicated 12/15/23 Most recent to oldest [Reference Range]: 1 WBC [4.8-10.8 K/mcL] 4.7 K/mcL *LOW* (12/15/23 10:40 PM) RBC [4.20-5.40 Million/mcL] 4.47 Million /mcL (12/15/23 10:40 PM) Neutro Auto [42.2-75.2 %] 50.0 % (12/15/23 10:40 PM) Lymph Auto [20.5-51.1 %] 34.5 % (12/15/23 10:40 PM) Graham Auto [1.7-9.3 %] 9.9 % *HI* (12/15/23 10:40 PM) Basophil Auto [0.0-0.8 %] 0.9 % *HI* (12/15/23 10:40 PM) BUN [7-25 mg/dL] 9 mg/dL (12/15/23 10:40 PM) UA Color [Yellow] Yellow (12/15/23 10:30 PM) UA WBC [0-3] 0-3 (12/15/23 10:30 PM) Glucose Level [70-109 mg/dL] 102 mg/dL (12/15/23 10:40 PM) Potassium Level [3.5-5.1 mmol/L] 3.7 mmo l/L (12/15/23 10:40 PM) Baso Absolute [0.0-0.2 K/mcL] 0.0 K/mcL (12/15/23 10:40 PM) MCV [81.0-99.0 fL] 86.5 fL (12/15/23 10:40 PM) UA Urobilinogen [0.2] 0.2 (12/15/23 10:30 PM) UA Bili [Negative] Negative (12/15/23 10:30 PM) UA Ketones [Negative] Negative (12/15/23 10:30 PM) AST [13-39 IntlUnit/L] 16 IntlUnit/L (12/15/23 10:40 PM) ALT [7-52 IntlUnit/L] 10 IntlUnit/L (12/15/23 10:40 PM) MCHC [32.0-37.0 g/dL] 34.2 g/dL (12/15/23 10:40 PM) Osmolality [275-295 mOsm/kg] 275 mOsm/kg (12/15/23 10:40 PM) Sodium Level [136-145 mmol/L] 138 mmol/L (12/15/23 10:40 PM) UA RBC [0-3] 6-10 *ABN* (12/15/23 10:30 PM) UA Leuk Est [Negative] Negative (12/15/23 10:30 PM) Lymph Absolute [1.2-3.4 K/mcL] 1.6 K/mcL (12/15/23 10:40 PM) UA Gran Cast [None Seen] 0-3 *ABN* (12/15/23 10:30 PM) UA Nitrite [Negative] Negative (12/15/23 10:30 PM) UA Glucose [Negative] Negative (12/15/23 10:30 PM) Hct [37.0-47.0 %] 38.6 % (12/15/23 10:40 PM) UA Bacteria [None Seen] 1+ *ABN* (12/15/23 10:30 PM) Lipase Level [11-82 unit/L] 28 unit/L 1 (12/15/23 10:40 PM) Calcium Level [8.6-10.3 mg/dL] 9.1 mg/dL (12/15/23 10:40 PM) Graham Absolute [0.1-0.6 K/mcL] 0.5 K/mcL (12/15/23 10:40 PM) Albumin Level [3.5-5.7 g/dL] 4.5 g/dL (12/15/23 10:40 PM) Protein Total [6.4-8.9 g/dL] 7.0 g/dL (12/15/23 10:40 PM) UA Protein [Negative] Negative (12/15/23 10:30 PM) MCH [27.0-31.0 pg] 29.6 pg (12/15/23 10:40 PM) Neutro Absolute [1.4-6.5 K/mcL] 2.3 K/mc L (12/15/23 10:40 PM) Bilirubin Total [0.3-1.0 mg/dL] 0.3 mg/d L (12/15/23 10:40 PM) Hgb [12.0-16.0 g/dL] 13.2 g/dL (12/15/23 10:40 PM) Alk Phos [34-104 IntlUnit/L] 58 IntlUnit /L (12/15/23 10:40 PM) UA Blood [Negative] Moderate *ABN* (12/15/23 10:30 PM) MPV [7.4-10.4 fL] 8.5 fL (12/15/23 10:40 PM) UA Mucous [None Seen] Present *ABN* (12/15/23 10:30 PM) UA Spec Grav [1.001-1.030] 1.020 (12/15/23 10:30 PM) Platelets [130-400 K/mcL] 245 K/mcL (12/15/23 10:40 PM) CO2 [21-31 mmol/L] 24 mmol/L (12/15/23 10:40 PM) Eos Absolute [0.0-0.2 K/mcL] 0.2 K/mcL (12/15/23 10:40 PM) UA Squam Epithelial [0-3] 0-3 (12/15/23 10:30 PM) UA pH [5.00-9.00] 7.00 (12/15/23 10:30 PM) UA Appear [Clear] Clear (12/15/23 10:30 PM) Chloride Level [98-107 mmol/L] 109 mmol/ L *HI* (12/15/23 10:40 PM) RDW-CV [11.5-14.5 %] 12.1 % (12/15/23 10:40 PM) A/G Ratio [1.0-2.5 g/dL] 1.8 g/dL (12/15/23 10:40 PM) BUN/Creat Ratio [8.0-20.0] 18.0 (12/15/23 10:40 PM) Globulin [2.3-3.5 g/dL] 2.5 g/dL (12/15/23 10:40 PM) Slide Review Not Indicated (12/15/23 10:40 PM) UA Culture Ind?. [No] No (12/15/23 10:30 PM) Urine Srce Clean Catch (12/15/23 10:30 PM) Creatinine Level [0.60-1.20 mg/dL] 0.50 mg/dL *LOW* (12/15/23 10:40 PM) Anion Gap [3.0-12.0] 5.0 (12/15/23 10:40 PM) Eos, Auto [0.00-3.00 %] 4.70 % *HI* (12/15/23 10:40 PM) U hCG Ql [Negative] Negative (12/15/23 10:30 PM) eGFR CKD-EPI [>=60 mL/min/1.73 m2] 138 m L/min/1.73 m2 (12/15/23 10:40 PM) 1Interpretive Data: U-ejtlep-e-benzoquinone imine (meabolite of Acetaminophen) will generate erroneously low lipase results in samples for patients that have taken toxic doses of acetaminophen. Vital Signs Most recent to oldest [Reference Range]: 1 Temperature Oral [35.8-37.3 Deg C] 37.2 Deg C (12/15/23 10:27 PM) Peripheral Pulse Rate [60-100 bpm] 104 b pm *HI* (12/15/23 10:27 PM) Respiratory Rate [12-24 br/min] 18 br/mi n (12/15/23 10:27 PM) Blood Pressure [90-120/60-80 mmHg] 109/9 0mmHg (12/15/23 10:27 PM) Mean Arterial Pressure, Cuff [65-140 mmH g] 96 mmHg (12/15/23 10:27 PM) Weight 45 kg (12/15/23 10:27 PM) Weight Dosing 45.000 kg (12/15/23 10:27 PM) Height 162 cm (12/15/23 10:27 PM) Body Mass Index 17.15 kg/m2 (12/15/23 10:27 PM) Height/Length Percentile 41.83 1 (12/15/23 10:27 PM) Weight Percentile 2.94 2 (12/15/23 10:27 PM) 1Result Comment: ^~:!Percentile Source -CDC 2Result Comment: ^~:!Percentile Source -[facility] Social History Social History Type Response Tobacco Never tobacco user, smokeless tobacco daily Tobacco Use:. Sex Female Sex Representation Female (finding) Hospital Discharge Instructions Patient Education 12/15/2023 22:32:02 Menorrhagia Menorrhagia Menorrhagia is a form of abnormal uterine bleeding in which menstrual periods are heavy or last longer than normal. With menorrhagia, the periods may cause enough blood loss and cramping that a womanbecomes unable to take part in her usual activities. What are the causes? Common causes of this condition include: ??? Polyps or fibroids. These are noncancerous growths in the uterus. ??? An imbalance of the hormones estrogen and progesterone. ??? Anovulation, which occurs when one of the ovaries does not release an egg during one or more months. ??? A problem with the thyroid gland (hypothyroidism). ??? Side effects of having an intrauterine device (IUD). ??? Side effects of some medicines, such as NSAIDs or blood thinners. ??? A bleeding disorder that stops the blood from clotting normally. In some cases, the cause of this condition is not known. What increases the risk? You are more likely to develop this condition if you have cancer of the uterus. What are the signs or symptoms? Symptoms of this condition include: ??? Routinely having to change your pad or tampon every 1???2 hours because it is soaked. ??? Needing to use pads and tampons at the same time because of heavy bleeding. ??? Needing to wake up to change your pads or tampons during the night. ??? Passing blood clots larger than 1 inch (2.5 cm) in size. ??? Having bleeding that lasts for more than 7 days. ??? Having symptoms of low iron levels (anemia), such as tiredness (fatigue) or shortness of breath. How is this diagnosed? This condition may be diagnosed based on: ??? A physical exam. ??? Your symptoms and menstrual history. ??? Tests, such as: ??? Blood tests to check if you are or if you have hormonal changes, a bleeding or thyroiddisorder, anemia, or other problems. ??? Pap test to check for cancerous changes, infections, or inflammation. ??? Endometrial biopsy. This test involves removing a tissue sample from the lining of the uterus (endometrium) to be examined under a microscope. ??? Pelvic ultrasound. This test uses sound waves to create images of your uterus, ovaries, and vagina. The images can show if you have fibroids or other growths. ??? Hysteroscopy. For this test, a thin, flexible tube with a light on the end (hysteroscope) is used to look inside your uterus. How is this treated? Treatment may not be needed for this condition. If it is needed, the best treatment for you will depend on: ??? Whether you need to prevent . ??? Your desire to have children in the future. ??? The cause and severity of your bleeding. ??? Your personal preference. Medicine Medicines are the first step in treatment. You may be treated with: ??? Hormonal control methods. These treatments reduce bleeding during your menstrual period. They include: ??? control pills. ??? Skin patch. ??? Vaginal ring. ??? Shots (injections) that you get every 3 months. ??? Hormonal IUD. ??? Implants that go under the skin. ??? Medicines that thicken the blood and slow bleeding. ??? Medicines that reduce swelling, such as ibuprofen. ??? Medicines that contain an artificial (synthetic) hormone called progestin. ??? Medicines that make the ovaries stop working for a short time. ??? Iron supplements to treat anemia. Surgery If medicines do not work, surgery may be done. Surgical options may include: ? ? Dilation and curettage (D&C). In this procedure, your health care provider opens the lowestpart of the uterus (cervix) and then scrapes or suctions tissue from the endometrium. This reduces menstrual bleeding. ??? Operative hysteroscopy. In this procedure, a hysteroscope is used to view your uterus and help remove polyps that may be causing heavy periods. ??? Endometrial ablation. This is when various techniques are used to permanently destroy your entire endometrium. After endometrial ablation, most women have little or no menstrual flow. This procedure reduces your ability to become . ??? Endometrial resection. In this procedure, an electrosurgical wire loop is used to remove the endometrium. This procedure reduces your ability to become . ??? Hysterectomy. This is surgical removal of your uterus. This is a permanent procedure that stopsmenstrual periods. is not possible after a hysterectomy. Follow these instructions at home: Medicines ??? Take fgtb-adz-opglpiy and prescription medicines only as told by your health care provider. This includes iron pills. ??? Do not change or switch medicines without asking your health care provider. ??? Do not take aspirin or medicines that contain aspirin 1 week before or during your menstrual period. Aspirin may make bleeding worse. Managing constipation Your iron pills may cause constipation. If you are taking prescription iron supplements, you may need to take these actions to prevent or treat constipation: ??? Drink enough fluid to keep your urine pale yellow. ??? Take erau-cbf-frlqsxn or prescription medicines. ??? Eat foods that are high in fiber, such as beans, whole grains, and fresh fruits and vegetables. ??? Limit foods that are high in fat and processed sugars, such as fried or sweet foods. General instructions ??? If you need to change your sanitary pad or tampon more than once every 2 hours, limit your activity until the bleeding stops. ??? Eat well-balanced meals, including foods that are high in iron. Foods that have a lot of iron include leafy green vegetables, meat, liver, eggs, and whole- grain breads and cereals. ??? Do not try to lose weight until the abnormal bleeding has stopped and your blood iron level is back to normal. If you need to lose weight, work with your health care provider to lose weight safely. ??? Keep all follow-up visits. This is important. Contact a health care provider if: ??? You soak through a pad or tampon every 1 or 2 hours, and this happens every time you have a period. ??? You need to use pads and tampons at the same time because you are bleeding so much. ??? You have nausea, vomiting, diarrhea, or other problems related to medicines you are taking. Get help right away if: ??? You soak through more than a pad or tampon in 1 hour. ??? You pass clots bigger than 1 inch (2.5 cm) wide. ??? You feel short of breath. ??? You feel like your heart is beating too fast. ??? You feel dizzy or you faint. ??? You feel very weak or tired. Summary ??? Menorrhagia is a form of abnormal uterine bleeding in which menstrual periods are heavy or lastlonger than normal. ??? Treatment may not be needed for this condition. If it is needed, it may include medicines or procedures. ??? Take aqom-dkh-msmjsmi and prescription medicines only as told by your health care provider. This includes iron pills. ??? Get help right away if you have heavy bleeding that soaks through more than a pad or tampon in 1 hour, you pass large clots, or you feel dizzy, short of breath, or very weak or tired. This information is not intended to replace advice given to you by your health care provider. Make sure you discuss any questions you have with your health care provider. Document Revised: 10/10/2020 Document Reviewed: 10/10/2020 [employer] Patient Education ?? 2022 [employer]. 12/15/2023 22:31:52 Pelvic Pain, Female Pelvic Pain, Female Pelvic [...] Follow these instructions at home: ??? Take mvhr-onu-lrlkrui and prescription medicines only as told by [...] provider. Document Revised: 06/05/2021 Document Reviewed: 06/05/2021 [employer] Patient Education ?? 2022 [employer]. Follow Up Care 12/15/2023 22:20:40 With:Radiology Address: When:12/16/2023 09:30:00 Comments:[facility] for radiology for pelvic ultrasound. ??Arrive with a full bladder. With:Bryson Granados MD Address: [place] [address]- When:1 week With:Tylenol/Motrin for Pain/Fever Relief Address:Unknown When:1 month With:JAMES ELIZABETH Address: [address] [phone] When:1 month Physician Emergency department Note * Lokesh Solorio MD: PERFORM Event Display: ED Note Physician Authored Date: [id number] BALBUENAJOSE ROBERTO :2005 Age:18 years Sex:Female Visit Date:12/15/2023 Primary Care Physician: JAMES ELIZABETH Basic Information Time Seen: Lokesh Solorio MD / 12/15/2023 22:26 Chief Complaint 4-5 days of pelvic pain and vaginal bleeding/clotting. Nauseated, not improved with zofran History Of Present Illness: 18-year-old female presents the ER complaining of pelvic pain and vaginal bleeding.?? The patient states she has been on Depo for several years. ??She says she was due on 11/16 for this but??could notget it due to??lack of appointment availability. ??She is already having some cramping and bleeding??a few weeks later and was seen here on 11/30. ??She had??vaginal swab testing that was negative atthat time??and??discharged home.?? She says that she??finally got her Depo shot today but has continued to have cramping and bleeding??over the past??4 to 5 days. ??She is passing red and brown??clots and went through about 5 pads per day. ??She is having diffuse pelvic cramping associated with this.?? No fevers or chills.?? She has had nausea associated with the pain but no vomiting or diarrhea.?? No urinary symptoms. ??She has been taking ibuprofen and Tylenol??and had some??Thalia al primary care which is not helping much now comes in for evaluation.?? No history of??ovarian cysts.?? She says she was placed on Depo originally for??heavy painful periods. Review of Systems: CONSTITUTIONAL:??No fevers or chills. EYES:??No change in vision. ENT:??No sore throat. ??No headache. ??No neck pain. CARDIOVASCULAR:??No chest pain, palpitations or passing out episodes. RESPIRATORY:??No cough, shortness of breath or hemoptysis. GI:??No abdominal pain. ??No vomiting or diarrhea. :??No change in urination. SKIN:??No rash. NEUROLOGIC:??No focal numbness or weakness. PSYCHIATRIC:??No suicidal ideation. LYMPH:??No swelling. ?? Review of systems otherwise as stated in HPI Physical Exam Vitals & Measurements T:??37.2?C ??(Oral)?? HR:??104??(Peripheral)?? RR:??18?? BP:??109/90?? SpO2:??100%?? HT:??162??cm?? HT:??41.83??(Percentile)?? WT:??45??kg?? WT:??2.94??(Percentile)?? BMI:??17.15?? GENERAL:??Awake and alert. ??No acute distress. HEENT:??Normocephalic, atraumatic. ??Mucous membranes are moist. HEART:??Regular rate and rhythm. ??S1 and S2. LUNGS:??Clear to auscultation bilaterally. ??No respiratory distress. ABDOMEN:??Soft, mild suprapubic to right external pelvic tenderness. ??No guarding or rebound. ??NoMcBurney's point tenderness. BACK:??Normal to inspection and nontender. EXTREMITIES:??Nontender and without edema. NEUROLOGIC:??Awake, alert, and oriented x3. ??Motor and sensory grossly intact. SKIN:??Warm and dry. ?? Medical Decision Making: Pelvic pain and vaginal bleeding. ??The patient is likely having withdrawal bleeding after being late on her Depo shot.?? She received her new shot today and??potentially her symptoms??will??improve??soon. ??Otherwise she has a benign exam with stable vital signs. ??hCG is negative and??there is noevidence for ectopic .?? She has very minimal pain and have low suspicion for ovarian torsion.?? She had??STD testing 2 weeks ago which is negative and??further testing is not indicated. ??Laboratory studies are overall unremarkable with normal H&H, LFTs, lipase??which is reassuring. ??Symptoms improved here with ibuprofen and Compazine??and she is felt to be safe for discharge home.?? She has not had a previous ultrasound and??I have scheduled an ultrasound for her tomorrow at 11??for further evaluation.?? Otherwise she should use Tylenol, ibuprofen, rest, follow-up with??women's health??in [place] very??if symptoms or not improving??over the next few days, return for new or worsening symptoms that were discussed with her. Procedure No Qualifying Data Assessment/Plan 1.??Pelvic pain??R10.2 Ordered: prochlorperazine 10 mg oral tablet, 10 mg = 1 tab, Oral, TID, PRN nausea/vomiting, X 7 days, # 21 tab, 0 Refill(s), 12/22/23 23:33:00 EST, Pharmacy: [facility] #[id number], 162, cm, 12/15/23 22:27:00 EST, Height, 45, kg, 12/15/23 22:29:00 EST, Weight Dosing ?? 2.??Vaginal bleeding??N93.9 Ordered: prochlorperazine 10 mg oral tablet, 10 mg = 1 tab, Oral, TID, PRN nausea/vomiting, X 7 days, # 21 tab, 0 Refill(s), 12/22/23 23:33:00 EST, Pharmacy: [facility] #[id number], 162, cm, 12/15/23 22:27:00 EST, Height, 45, kg, 12/15/23 22:29:00 EST, Weight Dosing ?? Orders: prochlorperazine, 10 mg = 2 tab, Oral, Tab, every 6 hr for 3 doses, PRN nausea/vomiting, First Dose: 12/15/23 23:30:00 EST, Stop Date: Limited # of times, Physician Stop, Routine Discharge Patient, 12/15/23 23:34:00 EST, Home Independently US Pelvic Complete, *Est. 12/16/23 +/- 2 days, Routine, Reason: pelvic pain, vag bleed; hcg neg, Transport Mode: Ambulatory Patient Education Menorrhagia Pelvic Pain, Female Follow Up With When Contact Information Radiology 12/16/2023 10:30 AM EST Additional Instructions: [facility] for radiology for pelvic ultrasound. ??Arrive with a full bladder. Bryson Granados MD Within [address] [address]- Additional Instructions: Tylenol/Motrin for Pain/Fever Relief Within 1 month Additional Instructions: JOSEFA VELIZ, JAMES MCDERMOTT Within [address] [phone] Additional Instructions: Medication Reconciliation New Prescription prochlorperazine (prochlorperazine 10 mg oral tablet)1 tab Oral (given by mouth) 3 times a day as needed nausea/vomiting for 7 Days. Refills: 0. ?? Unchanged busPIRone (busPIRone 5 mg oral tablet)TAKE 1/2 TO 1 TABLET BY MOUTH UP TO THREE TIMES DAILY NEEDED. ?? FLUoxetine ?? hydrOXYzine ?? hyoscyamine ?? medroxyPROGESTERone (Depo-Provera Contraceptive 150 mg/mL intramuscular suspension)1 Unknown. ?? metroNIDAZOLE topical (metroNIDAZOLE 0.75% vaginal gel with applicator)INSERT 1 APPLICATORFUL VAGINALLY TWICE DAILY FOR 5 DAYS. ?? ondansetron (ondansetron 4 mg oral tablet, disintegrating)1 tab Oral (given by mouth) 3 times a day. Refills: 0. Problem List/Past Medical History Ongoing Amenorrhea Anxiety Decrease in appetite Epigastric pain Lipoma of abdominal wall Loss of taste Major depression, single episode Menometrorrhagia Nausea Patient encounter status Tonsillitis Historical No qualifying data Medication Administration Given ibuprofen, 600 mg, Oral prochlorperazine, 10 mg, Oral Allergies penicillin??(Rash) Social History Alcohol Never Electronic Cigarette/Vaping Electronic Cigarette Use: Use, within last 90 days. Use per Day: 1-25 Inhales/day. Tobacco Never tobacco user, smokeless tobacco daily Tobacco Use:. Lab Results CBC and Differential?? LATEST RESULTS?? HISTORICAL RESULTS?? WBC?? 12/15/23 22:40?? 4.7 ??Low?? 09/25/23?? 5.5?? RBC?? 12/15/23 22:40?? 4.47?? 09/25/23?? 4.50?? Hgb?? 12/15/23 22:40?? 13.2?? 09/25/23?? 13.0?? Hct?? 12/15/23 22:40?? 38.6?? 09/25/23?? 38.6?? MCV?? 12/15/23 22:40?? 86.5?? 09/25/23?? 85.7?? MCH?? 12/15/23 22:40?? 29.6?? 09/25/23?? 28.8?? MCHC?? 12/15/23 22:40?? 34.2?? 09/25/23?? 33.6?? RDW-CV?? 12/15/23 22:40?? 12.1?? 09/25/23?? 13.5?? Platelets?? 12/15/23 22:40?? 245?? 09/25/23?? 259?? MPV?? 12/15/23 22:40?? 8.5?? 09/25/23?? 8.6?? Neutro Auto?? 12/15/23 22:40?? 50.0?? 09/25/23?? 62.0?? Lymph Auto?? 12/15/23 22:40?? 34.5?? 09/25/23?? 24.8?? Graham Auto?? 12/15/23 22:40?? 9.9 ??High?? 09/25/23?? 9.6 ??High?? Eos, Auto?? 12/15/23 22:40?? 4.70 ??High?? 09/25/23?? 2.80?? Basophil Auto?? 12/15/23 22:40?? 0.9 ??High?? 09/25/23?? 0.8?? Neutro Absolute?? 12/15/23 22:40?? 2.3?? 09/25/23?? 3.4?? Lymph Absolute?? 12/15/23 22:40?? 1.6?? 09/25/23?? 1.4?? Graham Absolute?? 12/15/23 22:40?? 0.5?? 09/25/23?? 0.5?? Eos Absolute?? 12/15/23 22:40?? 0.2?? 09/25/23?? 0.2?? Baso Absolute?? 12/15/23 22:40?? 0.0?? 09/25/23?? 0.0?? Slide Review?? 12/15/23 22:40?? Not Indicated?? 01/27/23?? Not Indicated? Routine Chemistry?? LATEST RESULTS?? HISTORICAL RESULTS?? Sodium Level?? 12/15/23 22:40?? 138?? 09/25/23?? 139?? Potassium Level?? 12/15/23 22:40?? 3.7?? 09/25/23?? 3.6?? Chloride Level?? 12/15/23 22:40?? 109 ??High?? 09/25/23?? 106?? CO2?? 12/15/23 22:40?? 24?? 09/25/23?? 26?? Alk Phos?? 12/15/23 22:40?? 58?? 09/25/23?? 61?? AST?? 12/15/23 22:40?? 16?? 09/25/23?? 15?? ALT?? 12/15/23 22:40?? 10?? 09/25/23?? 12?? BUN?? 12/15/23 22:40?? 9?? 09/25/23?? 9?? Glucose Level?? 12/15/23 22:40?? 102?? 09/25/23?? 81?? Creatinine Level?? 12/15/23 22:40?? 0.50 ??Low?? 09/25/23?? 0.60?? BUN/Creat Ratio?? 12/15/23 22:40?? 18.0?? 09/25/23?? 15.0?? eGFR CKD-EPI?? 12/15/23 22:40?? 138?? 09/25/23?? 133?? Calcium Level?? 12/15/23 22:40?? 9.1?? 09/25/23?? 9.2?? Protein Total?? 12/15/23 22:40?? 7.0?? 09/25/23?? 6.6?? Albumin Level?? 12/15/23 22:40?? 4.5?? 09/25/23?? 4.6?? Globulin?? 12/15/23 22:40?? 2.5?? 09/25/23?? 2.0 ??Low?? A/G Ratio?? 12/15/23 22:40?? 1.8?? 09/25/23?? 2.3?? Bilirubin Total?? 12/15/23 22:40?? 0.3?? 09/25/23?? 0.7?? Anion Gap?? 12/15/23 22:40?? 5.0?? 09/25/23?? 7.0?? Lipase Level?? 12/15/23 22:40?? 28?? 06/27/23?? 23?? Osmolality?? 12/15/23 22:40?? 275?? 09/25/23?? 275? Testing?? LATEST RESULTS?? HISTORICAL RESULTS?? U hCG Ql?? 12/15/23 22:30?? Negative?? 12/01/23?? Negative? UA Macroscopic?? LATEST RESULTS?? HISTORICAL RESULTS?? Urine Srce?? 12/15/23 22:30?? Clean Catch?? 12/01/23?? Clean Catch?? UA Color?? 12/15/23 22:30?? Yellow?? 12/01/23?? Yellow?? UA Appear?? 12/15/23 22:30?? Clear?? 12/01/23?? Clear?? UA Glucose?? 12/15/23 22:30?? Negative?? 12/01/23?? Negative?? UA Bili?? 12/15/23 22:30?? Negative?? 12/01/23?? Negative?? UA Ketones?? 12/15/23 22:30?? Negative?? 12/01/23?? Trace Abnormal?? UA Spec Grav?? 12/15/23 22:30?? 1.020?? 12/01/23?? 1.025?? UA Blood?? 12/15/23 22:30?? Moderate Abnormal?? 12/01/23?? Negative?? UA pH?? 12/15/23 22:30?? 7.00?? 12/01/23?? 7.00?? UA Protein?? 12/15/23 22:30?? Negative?? 12/01/23?? Negative?? UA Urobilinogen?? 12/15/23 22:30?? 0.2?? 12/01/23?? 1.0 Abnormal?? UA Nitrite?? 12/15/23 22:30?? Negative?? 12/01/23?? Negative?? UA Leuk Est?? 12/15/23 22:30?? Negative?? 12/01/23?? Negative?? UA Culture Ind?.?? 12/15/23 22:30?? No? UA Microscopic?? LATEST RESULTS?? UA WBC?? 12/15/23 22:30?? 0-3?? UA RBC?? 12/15/23 22:30?? 6-10 Abnormal?? UA Squam Epithelial?? 12/15/23 22:30?? 0-3?? UA Mucous?? 12/15/23 22:30?? Present Abnormal?? UA Bacteria?? 12/15/23 22:30?? 1+ Abnormal?? UA Gran Cast?? 12/15/23 22:30?? 0-3 Abnormal? Electronically Signed on 12/15/2023 23:37 EST Lokesh Solorio MD * KEREN Webber: PERFORM Event Display: ED Note Physician Authored Date: [id number] I spoke to the patient via telephone at 12:15 PM on 12/15.?? I informed her of her ultrasound being unremarkable??and she can follow-up with VESSEL [facility] or return to the emergency department for any new or worsening conditions. ??She was aware of this and agreed with this plan Electronically Signed on 12/16/2023 12:16 EST KEREN Webber Emergency department Discharge instructions * Lokesh Solorio MD: PERFORM Event Display: ED Discharge Information Authored Date: [id number] JOSE ROBERTO BALBUENA :2005 Age:18 years Sex:Female Visit Date:12/15/2023 Primary Care Physician: JAMES ELIZABETH Discharge Instructions We would like to thank you for allowing us to assist you with your healthcare needs. The following includes patient education materials and information regarding your injury/illness. Diagnosis from Today's Visit Pelvic pain Vaginal bleeding Discharge Vitals Temperature??(Oral) 99.0 ??F (37.2 ??C) Heart Rate??(Peripheral) 104 Respiratory Rate?? 18 Blood Pressure?? 109/90?? SpO2?? 100% Height?? 63.78 in (162 cm) Weight?? 99.23 lb (45 kg) BMI?? 17.15 Allergies penicillin??(Rash) What to Do Next You Need to Schedule the Following Appointments Follow Up with??Bryson Granados MD When:??Within 1 week Where: [facility] [address] [place] [address]- Follow Up with??Tylenol/Motrin for Pain/Fever Relief When:??Within 1 month Follow Up with??JOSEFA VELIZ, JAMES MCDERMOTT When:??Within 1 month Where: [facility] [address] [place] [address]- [phone] Follow Up with??Radiology When:??12/16/2023 10:30 AM EST Why: [facility] for radiology for pelvic ultrasound. ??Arrive with a full bladder. Future Orders US Pelvic Complete, *Est. 12/16/23 +/- 2 days, Routine, Reason: pelvic pain, vag bleed; hcg neg, Transport Mode: Ambulatory You were treated today on an emergency [...] Much When Why Instructions Next Dose New prochlorperazine (prochlorperazine 10 mg oral tablet) 1 tab Oral (given by mouth) 3 times a day as needed for nausea/vomiting Pelvic pain Vaginal bleeding Duration: 7 Days [id number] Unchanged busPIRone (busPIRone 5 mg oral tablet) TAKE 1/ 2 TO 1 TABLET BY MOUTH UP TO THREE TIMES DAILY NEEDED ?? Unchanged FLUoxetine Unchanged hydrOXYzine Unchanged hyoscyamine Unchanged medroxyPROGESTERone (Depo-Provera Contraceptive 150 mg/ mL intramuscular suspension) 1 Unknown ?? Unchanged metroNIDAZOLE topical (metroNIDAZOLE 0.75% vaginal gel with applicator) INSERT 1 APPLICATORFUL VAGINALLY TWICE DAILY FOR 5 DAYS ?? Unchanged ondansetron (ondansetron 4 mg oral tablet, disintegrating) 1 tab Oral (given by mouth) 3 times a day Influenza-like illness Pharmacy Information [facility] #[id number]: [address] [place], [place] [id number] [phone] Education [employer] Menorrhagia Menorrhagia is a form of abnormal uterine bleeding in which menstrual periods are heavy or last longer than normal. With menorrhagia, the periods may cause enough blood loss and cramping that a womanbecomes unable to take part in her usual activities. What are the causes? Common causes of this condition include: ? Polyps or fibroids. These are noncancerous growths in the uterus. ? An imbalance of the hormones estrogen and progesterone. ? Anovulation, which occurs when one of the ovaries does not release an egg during one or more months. ? A problem with the thyroid gland (hypothyroidism). ? Side effects of having an intrauterine device (IUD). ? Side effects of some medicines, such as NSAIDs or blood thinners. ? A bleeding disorder that stops the blood from clotting normally. In some cases, the cause of this condition is not known. What increases the risk? You are more likely to develop this condition if you have cancer of the uterus. What are the signs or symptoms? Symptoms of this condition include: ? Routinely having to change your pad or tampon every 1???2 hours because it is soaked. ? Needing to use pads and tampons at the same time because of heavy bleeding. ? Needing to wake up to change your pads or tampons during the night. ? Passing blood clots larger than 1 inch (2.5 cm) in size. ? Having bleeding that lasts for more than 7 days. ? Having symptoms of low iron levels (anemia), such as tiredness (fatigue) or shortness of breath. How is this diagnosed? This condition may be diagnosed based on: ? A physical exam. ? Your symptoms and menstrual history. ? Tests, such as: ? Blood tests to check if you are or if you have hormonal changes, a bleeding or thyroid disorder, anemia, or other problems. ? Pap test to check for cancerous changes, infections, or inflammation. ? Endometrial biopsy. This test involves removing a tissue sample from the lining of the uterus (endometrium) to be examined under a microscope. ? Pelvic ultrasound. This test uses sound waves to create images of your uterus, ovaries, and vagina.The images can show if you have fibroids or other growths. ? Hysteroscopy. For this test, a thin, flexible tube with a light on the end (hysteroscope) is used to look inside your uterus. How is this treated? Treatment may not be needed for this condition. If it is needed, the best treatment for you will depend on: ? Whether you need to prevent . ? Your desire to have children in the future. ? The cause and severity of your bleeding. ? Your personal preference. Medicine Medicines are the first step in treatment. You may be treated with: ? Hormonal control methods. These treatments reduce bleeding during your menstrual period. Theyinclude: ? control pills. ? Skin patch. ? Vaginal ring. ? Shots (injections) that you get every 3 months. ? Hormonal IUD. ? Implants that go under the skin. ? Medicines that thicken the blood and slow bleeding. ? Medicines that reduce swelling, such as ibuprofen. ? Medicines that contain an artificial (synthetic) hormone called progestin. ? Medicines that make the ovaries stop working for a short time. ? Iron supplements to treat anemia. Surgery If medicines do not work, surgery may be done. Surgical options may include: ? Dilation and curettage (D&C). In this procedure, your health care provider opens the lowest part of the uterus (cervix) and then scrapes or suctions tissue from the endometrium. This reduces menstrual bleeding. ? Operative hysteroscopy. In this procedure, a hysteroscope is used to view your uterus and help remove polyps that may be causing heavy periods. ? Endometrial ablation. This is when various techniques are used to permanently destroy your entire endometrium. After endometrial ablation, most women have little or no menstrual flow. This procedure reduces your ability to become . ? Endometrial resection. In this procedure, an electrosurgical wire loop is used to remove the endometrium. This procedure reduces your ability to become . ? Hysterectomy. This is surgical removal of your uterus. This is a permanent procedure that stops menstrual periods. is not possible after a hysterectomy. Follow these instructions at home: Medicines ? Take tnhb-qrt-pdyagwa and prescription medicines only as told by your health care provider. This includes iron pills. ? Do not change or switch medicines without asking your health care provider. ? Do not take aspirin or medicines that contain aspirin 1 week before or during your menstrual period. Aspirin may make bleeding worse. Managing constipation Your iron pills may cause constipation. If you are taking prescription iron supplements, you may need to take these actions to prevent or treat constipation: ? Drink enough fluid to keep your urine pale yellow. ? Take wjhi-xuy-mhmsjyh or prescription medicines. ? Eat foods that are high in fiber, such as beans, whole grains, and fresh fruits and vegetables. ? Limit foods that are high in fat and processed sugars, such as fried or sweet foods. General instructions ? If you need to change your sanitary pad or tampon more than once every 2 hours, limit your activityuntil the bleeding stops. ? Eat well-balanced meals, including foods that are high in iron. Foods that have a lot of iron include leafy green vegetables, meat, liver, eggs, and whole-grain breads and cereals. ? Do not try to lose weight until the abnormal bleeding has stopped and your blood iron level is backto normal. If you need to lose weight, work with your health care provider to lose weight safely. ? Keep all follow-up visits. This is important. Contact a health care provider if: ? You soak through a pad or tampon every 1 or 2 hours, and this happens every time you have a period. ? You need to use pads and tampons at the same time because you are bleeding so much. ? You have nausea, vomiting, diarrhea, or other problems related to medicines you are taking. Get help right away if: ? You soak through more than a pad or tampon in 1 hour. ? You pass clots bigger than 1 inch (2.5 cm) wide. ? You feel short of breath. ? You feel like your heart is beating too fast. ? You feel dizzy or you faint. ? You feel very weak or tired. Summary ? Menorrhagia is a form of abnormal uterine bleeding in which menstrual periods are heavy or last longer than normal. ? Treatment may not be needed for this condition. If it is needed, it may include medicines or procedures. ? Take knpg-liz-rxxbyqt and prescription medicines only as told by your health care provider. This includes iron pills. ? Get help right away if you have heavy bleeding that soaks through more than a pad or tampon in 1 hour, you pass large clots, or you feel dizzy, short of breath, or very weak or tired. This information is not intended to replace advice given to you by your health care provider. Make sure you discuss any questions you have with your health care provider. Document Revised: 10/10/2020 Document Reviewed: 10/10/2020 [employer] Patient Education ?? 2022 [employer] Pelvic Pain, Female Pelvic pain is pain [...] Follow these instructions at home: ? Take bltd-mhq-wbvlnzj and prescription medicines only as told by [...] provider. Document Revised: 06/05/2021 Document Reviewed: 06/05/2021 [employer] Patient Education ?? 2022 [employer] Tests Performed Medications and Immunizations Administered Given ibuprofen, 600 mg, Oral prochlorperazine, 10 mg, Oral Lab Test Name Test Result Date/Time WBC 4.7 K/mcL 12/15/2023 22:40 EST RBC 4.47 Million/mcL 12/15/2023 22:40 EST Hgb 13.2 g/dL 12/15/2023 22:40 EST Hct 38.6 % 12/15/2023 22:40 EST MCV 86.5 fL 12/15/2023 22:40 EST MCH 29.6 pg 12/15/2023 22:40 EST MCHC 34.2 g/dL 12/15/2023 22:40 EST RDW-CV 12.1 % 12/15/2023 22:40 EST Platelets 245 K/mcL 12/15/2023 22:40 EST MPV 8.5 fL 12/15/2023 22:40 EST Neutro Auto 50.0 % 12/15/2023 22:40 EST Lymph Auto 34.5 % 12/15/2023 22:40 EST Graham Auto 9.9 % 12/15/2023 22:40 EST Eos, Auto 4.70 % 12/15/2023 22:40 EST Basophil Auto 0.9 % 12/15/2023 22:40 EST Neutro Absolute 2.3 K/mcL 12/15/2023 22:40 EST Lymph Absolute 1.6 K/mcL 12/15/2023 22:40 EST Graham Absolute 0.5 K/mcL 12/15/2023 22:40 EST Eos Absolute 0.2 K/mcL 12/15/2023 22:40 EST Baso Absolute 0.0 K/mcL 12/15/2023 22:40 EST Slide Review Not Indicated 12/15/2023 22:40 EST Sodium Level 138 mmol/L 12/15/2023 22:40 EST Potassium Level 3.7 mmol/L 12/15/2023 22:40 EST Chloride Level 109 mmol/L 12/15/2023 22:40 EST CO2 24 mmol/L 12/15/2023 22:40 EST Alk Phos 58 IntlUnit/L 12/15/2023 22:40 EST AST 16 IntlUnit/L 12/15/2023 22:40 EST ALT 10 IntlUnit/L 12/15/2023 22:40 EST BUN 9 mg/dL 12/15/2023 22:40 EST Glucose Level 102 mg/dL 12/15/2023 22:40 EST Creatinine Level 0.50 mg/dL 12/15/2023 22:40 EST BUN/Creat Ratio 18.0 12/15/2023 22:40 EST eGFR CKD-EPI 138 mL/min/1.73 m2 12/15/2023 22:40 EST Calcium Level 9.1 mg/dL 12/15/2023 22:40 EST Protein Total 7.0 g/dL 12/15/2023 22:40 EST Albumin Level 4.5 g/dL 12/15/2023 22:40 EST Globulin 2.5 g/dL 12/15/2023 22:40 EST A/G Ratio 1.8 g/dL 12/15/2023 22:40 EST Bilirubin Total 0.3 mg/dL 12/15/2023 22:40 EST Anion Gap 5.0 12/15/2023 22:40 EST Lipase Level 28 unit/L 12/15/2023 22:40 EST Osmolality 275 mOsm/kg 12/15/2023 22:40 EST U hCG Ql Negative 12/15/2023 22:30 EST Urine Srce Clean Catch 12/15/2023 22:30 EST UA Color YELLOW. 12/15/2023 22:30 EST UA Appear CLEAR. 12/15/2023 22:30 EST UA Glucose NEGATIVE 12/15/2023 22:30 EST UA Bili NEGATIVE 12/15/2023 22:30 EST UA Ketones NEGATIVE 12/15/2023 22:30 EST UA Spec Grav 1.020 12/15/2023 22:30 EST UA Blood MODERATE Clinitek 12/15/2023 22:30 EST UA pH 7.00 12/15/2023 22:30 EST UA Protein NEGATIVE 12/15/2023 22:30 EST UA Urobilinogen 0.2 12/15/2023 22:30 EST UA Nitrite NEGATIVE 12/15/2023 22:30 EST UA Leuk Est NEGATIVE 12/15/2023 22:30 EST UA Culture Ind?. No 12/15/2023 22:30 EST UA WBC 0-3 12/15/2023 22:30 EST UA RBC 6-10 12/15/2023 22:30 EST UA Squam Epithelial 0-3 12/15/2023 22:30 EST UA Mucous Present 12/15/2023 22:30 EST UA Bacteria 1+ 12/15/2023 22:30 EST UA Gran Cast 0-3 12/15/2023 22:30 EST Patient/Religious Activities Director Signature Patient Name:SREE JOSE ROBERTO Sanabria I have received this information and my questions have been answered. Patient/Religious Activities Director Name: Patient/Religious Activities Director Signature: Relationship to Patient: Witness Name/Signature: Date: Electronically Signed on: 12/15/2023 23:34 ESTSigned by: Patient Care team information Care Team Personnel Name: Krystal Kurtz APRN Position: Physician Member Role: Nurse Practitioner Address: [address] [place] [address] [place] [address] Name: JAMES ELIZABETH Position: No Access Member Role: Primary Care Physician Address: [facility] [address], [place] [id number] [place] [address] Care Team Related Persons Name: FAIZA BALBUENA Insurance Providers Guarantor name: JOSE ROBERTO BALBUENA Health Plan Information #: 1 Payer: [place] Member Number: [id number] Policy Number: NA Health Plan Information #: 2 Payer: [place] Member Number: [id number] Policy Number: NA Health Plan Information #: 3 Payer: [place] Member Number: [id number] Policy Number: [id number]
--- OUTSIDE RECORDS SUMMARY | 2024-02-03 12:36 | XMS_ITS | Encounter Summary ---
[facility] [place] [address] Care Team Providers Care President And Chief Commercial Officer Name Role Phone Krystal Kurtz APRN Primary Care Provider [phone] Reason for Referral * Consultation (Urgent) - Closed Specialty Diagnoses / Procedures Referred By Contac t Referred To Contact Gastroenterology Diagnoses Rectal bleeding Abdominal pain, unspecified abdominal location Barbara Orourke APRN [address] [facility] [place] [address] [facility] [address] [place] [address] Referral ID Status Reason Start Date Expiration Date V isits Requested Visits Authorized [id number] Closed Consult, Test & Treat 12/21/2021 12/21/2022 6 6 Encounter Details Date Type Department Care Team (Latest Contact Info) Description 12/21/2021 Transcribe Orders eDH Incoming Referrals [phone] Barbara Orourke APRN [address] [place] [address] Rectal bleeding; Abdominal pain, unspecified abdominal location Social History Tobacco Use Types Packs/Day Years Used Date Smoking Tobacco: Never Assessed Sex and Gender Information Value Date Recorded Sex Assigned at Not on file Gender Identity Not on file Sexual Orientation Not on file documented as of this encounter Plan of Treatment Scheduled Referrals Name Type Priority Associated Diagnoses Order Schedule Referral to Gastroenterology Outpatient Referral Urgent Rectal bleeding Abdominal pain, unspecified abdominal location Ordered: 12/21/2021 documented as of this encounter Visit Diagnoses Diagnosis Rectal bleeding Hemorrhage of rectum and anus Abdominal pain, unspecified abdominal location documented in this encounter Care Teams President And Chief Commercial Officer Relationship Specialty Start Date End Date Krystal Kurtz APRN PCP - General Family Medicine 09/23/21 01/22/24 documented as of this encounter
--- OUTSIDE RECORDS SUMMARY | 2024-02-03 12:36 | XMS_ITS | Encounter Summary ---
Author Organization [facility] Address [address] [place] [address] Care Team Providers Care Reception Name Role Phone Unavailable Primary Care Provider Unavailabl e Encounter Details Date Type Department Care Team (Late st Contact Info) Description 07/04/2022 Lab Requisition [facility] Pathology & Laboratory Medicine - [facility] [address] [place] [address] Outr Resulting Lab, Provider Social History Tobacco Use Types Packs/Day Years Used Date Smoking Tobacco: Never Assessed Comments Unknown Sex and Gender Information Value Date Recorded Sex Assigned at Not on file Legal Sex Female 3:24 EDT Gender Identity Not on file Sexual Orientation Not on file documented as of this encounter Plan of Treatment Not on file documented as of this encounter Procedures Procedure Name Priority Date/Time Associated Diagnosis Comments CHLAMYDIA/N. GONORRHOEAE AMPLIFIED NUCLEIC ACID Routine 07/04/2022 14:45 EDT documented in this encounter Results * CHLAMYDIA/N. GONORRHOEAE AMPLIFIED RNA (07/04/2022 14:45 EDT) Neisseria gonorrhoeae Result Negative Negative 07/06/2022 14:42 EDT [facility] Chlamydia trachomatis Result Negative Negative 07/06/2022 14:42 EDT [facility] Urine URINE / Unknown 07/04/2022 1 4:45 EDT 07/05/2022 22:27 EDT Narrative [facility] - 07/06/2022 14:42 EDT A first catch urine specimen is acceptable for detection of Gonorrhea and Chlamydia, but might detect up to 10% fewer infections when compared with vaginal and endocervical swab samples. us Provider Outr Resulting Lab MICROBIOLOGY - GENER AL ORDERABLES Final Result [facility] [address] [place] [address] documented in this encounter Visit Diagnoses Not on filedocumented in this encounter
--- OUTSIDE RECORDS SUMMARY | 2024-02-03 12:36 | XMS_ITS | Encounter Summary ---
Author Organization [facility] Address [address] [place] [address] Care Team Providers Care Programming Internship Name Role Phone Unavailable Primary Care Provider Unavailabl e Encounter Details Date Type Department Care Team (Late st Contact Info) Description 06/12/2023 Lab Requisition [facility] Pathology & Laboratory Medicine - [facility] [address] [place] [address] Outr Resulting Lab, Provider Social History Tobacco [...] Comments CHLAMYDIA/N. GONORRHOEAE AMPLIFIED NUCLEIC ACID Routine 06/11/2023 12:20 EDT documented in this encounter Results * CHLAMYDIA/N. GONORRHOEAE AMPLIFIED RNA (06/11/2023 12:20 EDT) Neisseria gonorrhoeae Result Negative Negative 06/13/2023 14:[address] [facility] Chlamydia trachomatis Result Negative Negative 06/13/2023 14:[address] [facility] Urine URINE / Unknown 06/11/2023 1 2:20 EDT 06/12/2023 17:34 EDT [address]arr[address] [facility] - 06/13/2023 14:32 EDT A first catch urine specimen is acceptable for detection of Gonorrhea and Chlamydia, but might detect up to 10% fewer infections when compared with vaginal and endocervical swab samples. us Provider Outr Resulting Lab MICROBIOLOGY - GENER AL ORDERABLES Final Result [facility] [address] [place] [address] documented in this encounter Visit Diagnoses Not on filedocumented in this encounter
--- OUTSIDE RECORDS SUMMARY | 2024-02-03 12:36 | XMS_ITS | Encounter Summary ---
Author Organization [facility] Address [address] [place] [address] Care Team Providers Care Coordinate Measuring Equipment Operator Name Role Phone Unavailable Primary Care Provider Unavailabl e Encounter Details Date Type Department Care Team (Late st Contact Info) Description 09/13/2021 Lab Requisition [facility] Pathology & Laboratory Medicine - [facility] [address] [place] [address] Outr Resulting Lab, Provider Social History Tobacco [...] Comments CHLAMYDIA/N. GONORRHOEAE AMPLIFIED NUCLEIC ACID Routine 09/12/2021 14:40 EDT documented in this encounter Results * CHLAMYDIA/N. GONORRHOEAE AMPLIFIED RNA (09/12/2021 14:40 EDT) Neisseria gonorrhoeae Result Negative Negative 09/14/2021 15:16 EDT [facility] Chlamydia trachomatis Result Negative Negative 09/14/2021 15:16 EDT [facility] Urine URINE / Unknown 09/12/2021 1 4:40 EDT 09/13/2021 17:10 EDT Narrative [facility] - 09/14/2021 15:16 EDT A first catch urine specimen is acceptable for detection of Gonorrhea and Chlamydia, but might detect up to 10% fewer infections when compared with vaginal and endocervical swab samples. us Provider Outr Resulting Lab MICROBIOLOGY - GENER AL ORDERABLES Final Result [facility] [address] [place] [address] documented in this encounter Visit Diagnoses Not on filedocumented in this encounter
--- OUTSIDE RECORDS SUMMARY | 2024-02-03 12:36 | XMS_ITS | Encounter Summary ---
Author Organization [facility] [place] [address] Care Team Providers Care Blade Aligner Name Role Phone Krystal Kurtz APRN Primary Care Provider [phone] Reason for Referral * Consultation (Routine) - Closed Specialty Diagnoses / Procedures Referred By Contac t Referred To Contact Nutrition Diagnoses Weight loss Chronic nausea Chronic abdominal pain Cait Alexandre APRN [facility] [address] [place] [address] [facility] [address] [place] [phone] Referral ID Status Reason Start Date Expiration Date V isits Requested Visits Authorized [id number] Closed Continuity of Care 12/31/2021 12/31/2022 1 1 Reason for Visit * Consultation (Routine) - Closed Specialty Diagnoses / Procedures Referred By Contact Referred To Contact Pediatric Gastroenterology Diagnoses Abdominal pain, unspecified abdominal location Unintended weight loss Natividad Barker MD [address] [place] [address] [facility] [address] [place] [phone] Referral ID Status Reason Start Date Expiration Date V isits Requested Visits Authorized [id number] Closed Consult, Test & Treat PCP Updated and/or Approved 09/25/2021 09/25/2022 6 6 Encounter Details Date Type Department Care Team (Latest Contact Info) Description 12/31/2021 1:00 PM EST Office Visit [place] [phone] Cait Alexandre APRN [facility] PEDIATRIC GASTRO[place] [address] Weight loss; BRBPR (bright red blood per rectum); Chronic nausea; Chronic abdominal pain; Tachycardia Social History Tobacco Use Types Packs/Day Years Used Date Smoking Tobacco: Never Smokeless Tobacco: Never Tobacco Cessation:Counseling Given: Not Answered Sex and Gender Information Value Date Recorded Sex Assigned at Not on file Gender Identity Not on file Sexual Orientation Not on file documented as of this encounter Last Filed Vital Signs Vital Sign Reading Time Taken Comments Blood Pressure 103/79 12/31/2021 12:59 PM EST Pulse 138 12/31/2021 12:59 PM EST Temperature 36.9 ??C (98.4 ??F) 12/31/2021 12:[address] Respiratory Rate 18 12/31/2021 12:59 PM EST Oxygen Saturation 100% 12/31/2021 12:59 PM EST Inhaled Oxygen Concentration - - Weight 38.1 kg (84 lb) 12/31/2021 12:59 PM EST Height 162.3 cm (5' 3.9) 12/31/2021 12:59 PM ES T Body Mass Index 14.46 12/31/2021 12:59 PM EST Body Mass Index Percentile 0.00% 12/31/2021 12: 59 PM EST Growth Chart: CDC (Girls, 2- 20 Years) documented in this encounter Patient Instructions * Patient Instructions* Cait Alexandre, MIRTA - 12/31/2021 1:00 PM EST Preparation for Colonoscopy Your child has been scheduled for a Colonoscopy at [facility] with Dr. Jayna Coats on Friday, r 2021. Pre-Procedure Calls: The business day before the procedure, you will receive a call from the perioperative assistant from [facility] office with arrival time and location of 4T, Same Day Surgery. Preparation: A prep must be done to free the bowel of stool so that the doctor can see the lining of the colon. To clear the bowel of stool your child will: Be on a clear liquid diet the day before the colonoscopy Take a Medication called Miralax?? also known as Polyethylene Glycol 3350 and ExLax?? or Dulcolax??also known as Bisacodyl. These are available without a prescription at any pharmacy and generic brands are fine to use. Coupons can be found at [employer]. Three days prior to colonoscopy: Purchase Gatorade?? 20 to 96 oz. (see dosing below; do not purchase Gatorade zero or G2) Purchase these snmy-fiq-ctadutg medications: One 510 gram bottle of Miralax?? or generic Polyethylene Glycol (over the counter) 1 Box of ExLax?? 15 mg squares (chocolate chews) OR Dulcolax?? (Bisacodyl) 5mg tablets Two days prior to colonoscopy: For all patients: Start a low fiber diet: No beans, corn, peas, tomatoes, cucumbers, nuts or any foods containing seeds such as poppy, sunflower, or sesame. No foods containing flax or fish oil. One day prior to colonoscopy: Drink clear liquids and Miralax?? cleanout solution only. No dairy and no solid foods. PLEASE NO RED LIQUIDS Allowed Not Allowed Water Solids Jell-O Dairy Clear Juice Gum Clear Soda Candy Fruit Ice/ Popsicles Sports Drinks Broth/ Bouillon Clean Out Instructions: Mix 14 capfuls of Miralax?? into 64 ounces of Gatorade??. Take 2(two) Bisacodyl (Dulcolax??) 5mg tablets first thing in the morning. Begin drinking the Gatorade?? solution no later than 8:00 a.m. Drink at least 16 ounces every hour until gone. Repeat a second dose of 2 (two) tablets of Bisacodyl 5mg at 2 p.m. The last bowel movement should look like ???pale ice tea?? color. There should be no solid stool and you should be able to see the bottom of the toilet bowl. Even if you/your child is having diarrhea and the stool appears clear, continue the Miralax?? until the entire dose is gone. If no bowel movement by 4pm, please mix and drink an additional 4 capfuls of Miralax?? in 20 ouncesof Gatorade?? If no bowel movement by 6pm, please mix and drink an additional 4 capfuls of Miralax?? in 20 ouncesof Gatorade?? After cleanout is complete, continue clear liquids through the remainder of the day. Procedure Day No solid food after midnight the night before procedure 6 hours before procedure: Stop infant formula. 4 hours before procedure: Stop breast milk. 4 hours before procedure: Stop clear liquids. Please contact the [facility] office at with any questions. Please report any fever or cough immediately before procedure. Cait Alexandre APRN Pediatric Gastroenterology RECOMMENDATIONS -Upper and lower endoscopy with biopsies next Friday -UDS for to rule out CHS -Okay to take 0.5mg of Lorazepam (1/2 tablet) 30 minutes prior to getting to the hospital for her scope -Stool sample given-family will drop off at local lab -Repeat labs CBC w/ diff, CMP, ESR, ESR, TTG IgA, IgA during scope -Please start drinking 1-2 Boost/Ensure per day -Referral to Television Servicer placed -Try and take littler sips of Pedialyte or Gatorade for rehydration. -Please return to PCP on Friday for repeat pulse check -Plan to follow up -via telehealth 2 weeks following endoscopy documented in this encounter Progress Notes * Cait Alexandre APRN - 12/31/2021 1:00 PM ESTSummary: Initital Pediatric GI Visit 01/02/22 ?Krystal Kurtz APRN [address] [place] [address] Re: Marilu Dee [id number] 2005 16 y.o. Dear ??Krystal Kurtz??, ? It was a pleasure seeing ??Marilu? for initial consultation [place] [facility] for chronic abdominal pain, weight loss, rectal bleeding and reflux. ?? HPI Marilu is here today with mom(Maria Guadalupe), Dad (Mehul) and younger sister (Janell) . They are coming from [place], [place]. -16-year-old female presenting with chronic abdominal pain, weight loss, PPI refractory epigastric pain as well as intermittent rectal bleeding. -She has significant anxiety and was started on buspirone. -Was doing 20 mg of omeprazole twice daily. She is nauseous and will use Zofran 4 mg as needed. Reports dysphagia. -Continues to drop weight significantly-was 89lbs at last PCP visit and currently is 84lbs. PCP hasbrought of concerns of possible eating disorder- however Marilu denies any binge eating/purging tendencies -She vapes daily, up to 5 hits per day. Denies marijuana use. -Labs 3 days ago revealed CMP mildly elevated glucose (113) and BUN (19). Liver enzymes normal. TSHnormal CBC with differential normal. -Symptoms started right before summer hit-resulting in multiple ER visits -She complains of ongoing nausea, lower and upper back pain and cramping in legs and low grade fevers. -stomach pain causes poor appetite. Pain is chronic last all day-worsens throughout the day. + dysphagia and burning sensation in her throat with solids. -Feels like food gets stuck in the back of her throat-sometimes passes with drinking water. -Pain is localized to the lower abomen. Feels like she feels a lump inside the right side of her abdomen. -She is taking Miralax every three days. Stools are described as Type 1-2. There is straining. About a month ago-started noticing blood streaked stools. Sometimes blood with wiping. -Occasionally will get a red, bumpy itchy rash which shows up B/L hips and behind her neck-which resolves within a day. -Fear of throwing up. Has lots of anxiety. Sees a therapist-used to be scheduled-trying to get something rescheduled. -She had seen another GI provider up in [place]. Has had negative celiac screening and previous normal sed rate and CRP. She was prescribed Levsin which she has not found helpful. -She has been scheduled for an EGD and [facility] several times however had several reasons it has not been completed yet, including anxiety and poor colon prep. Fam Hx: mom has hypothyroidism. Dad with anxiety Diet History: Feeding History: Appetite and oral intake have been poor. Any food make child sick-none identified Any food restrictions-Her diet is very restrictive Any oral supplements or TPN-None Diet Recall: Breakfast: sometimes it is hard to eat breakfast. Can sometimes stomach toast with jelly and butter. Lunch:often skipping lunch ( chips and crackers) Dinner: not really eating Fluid intake is water (30oz) Pertinent radiographic studies reviewed by me and discussed with the family: CT scans, June and July, USN pelvic-reportedly normal-however they are not in the chart for review. Pertinent Labs reviewed by me and discussed with the family: She reports she had blood work down 3 days ago-however the most recent lab work I am seeing is from August 2021-CBC w/diff, CMP, TSH and TTGIgA, IgA and deamidated gliadin Abs normal. Medical History (surgical or hospitalizations): significant anxiety and depression. Medications:Listed Below History: There were no complications during care, labor or delivary. Born Full-term.There was no jaundice present. Passed a bowel movement on 1st day of life. Allergies: No Known Allergies Immunizations: Up to Date Social History: She lives at home with mom and dad. Has missed several days of school due to abdominal symptoms. Family History is negative for Reflux, ulcers, IBD, Celiac Disease, Colon cancer, IBS, Liver disease, Food allergies and Autoimmune Disorders. REVIEW OF SYSTEMS There is no history of mouth sores, joint pains. No jaundice, bleeding, bruising, no icterus. All other 14 point review of systems are negative other than noted above. Past Medical History: Diagnosis Date ??? Anxiety ??? Depression ??? GERD (gastroesophageal reflux disease) Allergies Allergen Reactions ??? Penicillins Rash ? ? Current Outpatient Medications Medication Sig Dispense Refill ??? hyoscyamine SL (Levsin SL) 0.[address], [address] 1 TABLET UNDER THE TONGUE FOUR TIMES A DAY NEEDED FOR DYSPNEA ??? busPIRone (Buspar) 5 mg Tablet TAKE ONE TABLET BY MOUTH EVERY MORNING, 1 TABLET IN THE AFTERNOON, AND TAKE TWO TABLETS BY MOUTH AT BEDTIME ??? ondansetron ODT (Zofran-ODT) 4 mg Tablet, Rapid Dissolve DISSOLVE ONE TABLET ON TONGUE EVERY 8 HOURS NEEDED FOR NAUSEA ? ? polyethylene glycoL (Miralax) 17 gram Powder in Packet DISSOLVE 1 PACKET IN WATER & DRINK ONCE DAILY NEEDED FOR CONSTIPATION ??? medroxyPROGESTERone (Depo-PROVERA) 150 mg/mL Syringe INJECT 1ML INTRAMUSCULAR EVERY 12 WEEKS No current facility-administered medications for this visit. History reviewed. No pertinent surgical history. Family History Problem Relation Age of Onset ??? Thyroid Disease Mother ??? GERD Neg Hx ??? Peptic Ulcer Disease Neg Hx ??? Ulcerative Colitis Neg Hx ??? Celiac Disease Neg Hx ??? Liver Disease Neg Hx ??? Irritable Bowel Syndrome Neg Hx ??? Crohn Disease Neg Hx ??? Gallbladder Disease Neg Hx ??? Pancreatitis Neg Hx ??? Autoimmune Disorder Neg Hx Social History Social History Narrative ??? Not on file PHYSICAL EXAM ?Vital Signs BP 103/79 Pulse (!) 138 Temp 36.9 ??C (98.4 ??F) (Oral) Resp 18 Ht 162.3 cm (5' 3.9) Wt (!) 38.1 kg (84 lb) SpO2 100% BMI 14.46 kg/m?? Growth Parameters Weight: <1 %ile based on CDC (Girls, 2-20 Years) [id number] data based on Weight recorded on12/31/2021. Height/Length: 45 %ile based on CDC (Girls, 2-20 Years) Bavfkxh-ccy-dmk data based on Stature recorded on 12/31/2021. BMI: <1 %ile based on CDC (Girls, 2-20 Years) BMI-for-age based on body measurements available as of 12/31/2021. Weight for length: Normalized qkpley-pze-shrvkofed length data not available for patients older than 36 months. Wt Readings from Last 3 Encounters: 12/31/21 (!) 38.1 kg (84 lb) (<1 %)* * Growth percentiles are based on CDC (Girls, 2-20 Years) data. Ht Readings from Last 3 Encounters: 12/31/21 162.3 cm (5' 3.9) (45 %)* * Growth percentiles are based on CDC (Girls, 2-20 Years) data. General: Well developed, very thin appearing adolescent female who is cooperative in NAD Eyes: PERRL, EOM normal, no icterus HENT: NC/AT; OP clear with no erythema, lesions, aphthae Neck: Supple, no adenopathy, no thyromegaly or masses Lungs: Clear to auscultation, no rales or wheezes Heart: tachycardic (138, repeat 136-allowed a few minutes to relax and rechecked 128) no murmur, Good pulses. Cap Refill < 2 seconds Abdomen: Soft, mild-tenderness in RLQ, LLQ and epigastric region, concave abdomen with normal bowelsounds. No HSM or masses. Perianal: Normal external exam with a normally placed anus. No fissures, tags or hemorrhoids. Joints: Normal Neuro: No focal deficits., grossly in tact Derm: No rash, abnormal pigmented lesions; no petechiae or purpura, no jaundice RESULTS Personally reviewed previous notes, imaging and recent lab results. ASSESSMENT Marilu is a well appearing, severely malnourished 16 y.o. female with history of significant anxietyand depression, chronic tobacco use and amenorrhea who was seen in the GI clinic today presenting with chronic abdominal pain, significant unintentional weight loss, PPI refractory epigastric pain aswell as intermittent rectal bleeding in the setting of reassuring screening labs. Given clinical con stellation, important to rule out inflammatory bowel disease at this point. Will need further work-up with a stool sample looking for evidence of bowel inflammation as well as upper and lower endoscopies with biopsies as gold standard for diagnosis. We discussed details of the bowel prep as well asthe procedure and family is comfortable to proceed. As many as 15-20% of pediatric IBD patients do have normal labs at the time of presentation, thus given significant drop in her weight and intermittent blood in stools we will expedite work-up. It is possible that work-up will be normal, especially in the setting of anxiety, and we will redirect our management if that is the case to work on functional nausea/vomiting after thorough evaluation. This would be a diagnosis of exclusion. If work upcomes back normal, an eating disorder, such as anorexia or ARFID will be high on the differential as well-regardless I placed a referral to our flooring helper as she is at risk for significant nutritionaldeficiencies given restrictive diet and poor caloric intake. Given history of anxiety prior to endoscopy, will write for a one time dose of anxiolytic with hopes to be able to have her calm and be able to complete the scope. Given significant drop in weight and daily vaping (even though reportedly denies marijuana use-I like to rule out cannabinoids hyperemesis syndrome and will plan to obtain a UDS w/ THC confirmation to have this on file. On exam, she was tachycardic which is likely from underlying anxiety as well as dehydration. Recommended an EKG and blood work to check electrolytes and rule out underlying arrhythmias or electrolyteabnormalties-however Marilu refused EKG stating it is always normal and it is just caused by my anxiety. She also asked to have labs completed at another time. Given she was well appearing and denied chest pain or heart palpitations, advised her to follow up with her PCP in two days prior to for a repeat HR and we will plan to repeat labs during IV placement of scope. Also advised her to take small frequent sips of electrolyte replacement such as gatorade or pedialyte and add a nutritional supplement such as Boost daily. We will plan to follow up 2 weeks following her scope to review biopsies and determine plan moving forward. RECOMMENDATIONS -Upper and lower endoscopy with biopsies next Friday -UDS for to rule out CHS -Okay to take 0.5mg of Lorazepam (1/2 tablet) 30 minutes prior to getting to the hospital for her scope -Stool sample given-family will drop off at local lab -Repeat labs CBC w/ diff, CMP, ESR, ESR, TTG IgA, IgA during scope -Please start drinking 1-2 Boost/Ensure per day -Referral to Television Servicer placed -Try and take littler sips of Pedialyte or Gatorade for rehydration. -Please return to PCP on Friday for repeat pulse check -Plan to follow up -via telehealth 2 weeks following endoscopy 1. Weight loss Referral to Nutrition Services Rapid Drug Screen, Urine (DEANDRE Request) 2. BRBPR (bright red blood per rectum) Calprotectin, Stool CANCELED: Calprotectin, Stool 3. Chronic nausea Referral to Nutrition Services Rapid Drug Screen, Urine (DEANDRE Request) 4. Chronic abdominal pain SURGICAL CASE REQUEST: EGD, UPPER GI ENDOSCOPY, PEDIATRIC COLONOSCOPY Referral to Nutrition Services Calprotectin, Stool CANCELED: Calprotectin, Stool 5. Tachycardia ?I have ordered the following studies during our visit today: Orders Placed This Encounter Procedures ??? SURGICAL CASE REQUEST: EGD, UPPER GI ENDOSCOPY, PEDIATRIC COLONOSCOPY ??? Rapid Drug Screen, Urine (DEANDRE Request) ??? Rapid Drug Screen, Urine (DEANDRE Request) ??? Rapid Drug Screen w/ Confirmation, Urine ??? Calprotectin, Stool ??? Referral to Nutrition Services An After Visit Summary was printed and given to the patient. Patient Instructions Preparation for Colonoscopy Your child has been scheduled for a Colonoscopy at [facility] with Dr. Jayna Coats on 2021. Pre-Procedure Calls: The business day before the procedure, you will receive a call from the perioperative assistant from [facility] office with arrival time and location of 4T, Same Day Surgery. Preparation: A prep must be done to free the bowel of stool so that the doctor can see the lining of the colon. To clear the bowel of stool your child will: ?? Be on a clear liquid diet the day before the colonoscopy ?? Take a Medication called Miralax?? also known as Polyethylene Glycol 3350 and ExLax?? or Dulcolax?? also known as Bisacodyl. These are available without a prescription at any pharmacy and generic brands are fine to use. Coupons can be found at [employer]. Three days prior to colonoscopy: Purchase Gatorade?? 20 to 96 oz. (see dosing below; do not purchase Gatorade zero or G2) Purchase these arxf-jzr-muzfdzq medications: ??? One 510 gram bottle of Miralax?? or generic Polyethylene Glycol (over the counter) ??? 1 Box of ExLax?? 15 mg squares (chocolate chews) OR Dulcolax?? (Bisacodyl) 5mg tablets Two days prior to colonoscopy: For all patients: Start a low fiber diet: No beans, corn, peas, tomatoes, cucumbers, nuts or any foods containing seeds such as poppy, sunflower, or sesame. No foods containing flax or fish oil. One day prior to colonoscopy: Drink clear liquids and Miralax?? cleanout solution only. No dairy and no solid foods. PLEASE NO RED LIQUIDS Allowed Not Allowed Water Solids Jell-O Dairy Clear Juice Gum Clear Soda Candy Fruit Ice/ Popsicles Sports Drinks Broth/ Bouillon Clean Out Instructions: Mix 14 capfuls of Miralax?? into 64 ounces of Gatorade??. Take 2(two) Bisacodyl (Dulcolax??) 5mg tablets first thing in the morning. Begin drinking the Gatorade?? solution no later than 8:00 a.m. Drink at least 16 ounces every hour until gone. Repeat a second dose of 2 (two) tablets of Bisacodyl 5mg at 2 p.m. The last bowel movement should look like ???pale ice tea?? color. There should be no solid stool and you should be able to see the bottom of the toilet bowl. Even if you/your child is having diarrhea and the stool appears clear, continue the Miralax?? until the entire dose is gone. If no bowel movement by 4pm, please mix and drink an additional 4 capfuls of Miralax?? in 20 ouncesof Gatorade?? If no bowel movement by 6pm, please mix and drink an additional 4 capfuls of Miralax?? in 20 ouncesof Gatorade?? After cleanout is complete, continue clear liquids through the remainder of the day. Procedure Day No solid food after midnight the night before procedure 6 hours before procedure: Stop formula. 4 hours before procedure: Stop breast milk. 4 hours before procedure: Stop clear liquids. Please contact the [facility] office at with any questions. Please report any fever or cough immediately before procedure. Cait Alexandre APRN Pediatric Gastroenterology RECOMMENDATIONS -Upper and lower endoscopy with biopsies next Friday -UDS for to rule out CHS -Okay to take 0.5mg of Lorazepam (1/2 tablet) 30 minutes prior to getting to the hospital for her scope -Stool sample given-family will drop off at local lab -Repeat labs CBC w/ diff, CMP, ESR, ESR, TTG IgA, IgA during scope -Please start drinking 1-2 Boost/Ensure per day -Referral to Television Servicer placed -Try and take littler sips of Pedialyte or Gatorade for rehydration. -Please return to PCP on Friday for repeat pulse check -Plan to follow up -via telehealth 2 weeks following endoscopy Thank you for involving me in ??Marilu?'s care. If you have any questions, please feel free to contact me. ? Sincerely, Cait Alexandre APRN Department of Pediatric Gastroenterology [facility] documented in this encounter Plan of Treatment Scheduled Orders Name Type Priority Associated Diagnoses Orde r Schedule SURGICAL CASE REQUEST: EGD, UPPER GI ENDOSCOPY, PEDIATRIC COLONOSCOPY Procedures Routine Chronic abdominal pain Ordered: 12/31/2021 Scheduled Referrals Name Type Priority Associated Diagnoses Orde r Schedule Referral to Nutrition Services Outpatient Referral Routine Weight loss Chronic nausea Chronic abdominal pain Ordered: 12/31/2021 documented as of this encounter Procedures Procedure Name Priority Date/Time Associated Diagnosis Comments RAPID DRUG SCREEN, URINE Routine 12/31/2021 2:19 PM EST RAPID DRUG SCREEN W/ CONFIRMATION, URINE Routine 12/31/2021 2:19 PM EST documented in this encounter Results * Rapid Drug Screen w/ Confirmation, Urine (12/31/2021 2:19 PM EST) Barbiturates Screen, Urine None Detected None Detected [facility] Comment: The barbiturate screen detects barbiturates at concentrations >200 ng/mL. Note: Not all barbiturates cross-react equally with antibody used in this screen. A ? Presumptive Positive? result indicates that the screening result was positive but has not yet been confirmed by a highly-specific method. As with any screen, occasional false positive results from cross-reacting substances may occur. Not for Medico-Legal Purposes. Benzodiazepines Screen, Urine None Detected None Detected [facility] Comment: The benzodiazepines screen detects benzodiazepines at concentrations >100 ng/mL. Not all benzodiazepines cross-react equally with antibody used in this screen. Due to the low dosage of clonazepam, false negatives may be obtained due to low concentration of clonazepam metabolites. A ? Presumptive Positive? result indicates that the screening result was positive but has not yet been confirmed by a highly-specific method. As with any screen, occasional false positive results from cross-reacting substances may occur. Not for Medico-Legal Purposes. Cocaine Screen, Urine None Detected None Detected [facility] Comment: The cocaine metabolites screen detects benzoylecgonine (Cocaine Metabolite) at concentrations >150 ng/mL. A ? Presumptive Positive? result indicates that the screening result was positive but has not yet been confirmed by a highly-specific method. As with any screen, occasional false positive results from cross-reacting substances may occur. Not for Medico-Legal Purposes. Methadone Metabolites Screen, Urine None Detected None Detected [facility] Comment: The methadone metabolite screen detects EDDP (major methadone metabolite) at concentrations >100 ng/mL. A ? Presumptive Positive? result indicates that the screening result was positive but has not yet been confirmed by a highly-specific method. As with any screen, occasional false positive results from cross-reacting substances may occur. Not for Medico-Legal Purposes. Opiate Screen, Urine None Detected None Detected [facility] Comment: The opiates screen detects opiates at concentrations >300 ng/mL. Please note that oxycodone, oxymorphone, fentanyl, tramadol, and other synthetic opioids are not detected by the opiate screen. A ? Presumptive Positive? result indicates that the screening result was positive but has not yet been confirmed by a highly-specific method. As with any screen, occasional false positive results from cross-reacting substances may occur. Not for Medico-Legal Purposes. Cannabinoid Screen, Urine None Detected None Detected [facility] Comment: The marijuana metabolites screen detects the THC metabolite (67-dzz-6-carboxy-delta 9-THC) at concentrations >20 ng/mL. A ? Presumptive Positive? result indicates that the screening result was positive but has not yet been confirmed by a highly-specific method. As with any screen, occasional false positive results from cross-reacting substances may occur. Not for Medico-Legal Purposes. Oxycodone Screen, Urine None Detected None Detected [facility] Comment: The oxycodone screen detects oxycodone and oxymorphone at concentrations >100 ng/mL. A ? Presumptive Positive? result indicates that the screening result was positive but has not yet been confirmed by a highly-specific method. As with any screen, occasional false positive results from cross-reacting substances may occur. Not for Medico-Legal Purposes. Buprenorphine Screen, Urine None Detected None Detected [facility] Comment: The buprenorphine screen detects buprenorphine at concentrations >=5 ng/mL. A ? Presumptive Positive? result indicates that the screening result was positive but has not yet been confirmed by a highly-specific method. As with any screen, occasional false positive results from cross-reacting substances may occur. Not for Medico-Legal Purposes. This test has not been cleared by the [place] FDA. Performance characteristics of this test were determined by [facility] in accordance with CLIA requirements. This laboratory is qualified under CLIA to perform high-complexity testing. Fentanyl Screen, Urine None Detected None Detected [facility] Comment: The fentanyl screen detects fentanyl at concentrations >=2 ng/mL. A ? Presumptive Positive? result indicates that the screening result was positive but has not yet been confirmed by a highly-specific method. As with any screen, occasional false positive results from cross-reacting substances may occur. Not for Medico-Legal Purposes. This test has not been cleared by the [place] FDA. Performance characteristics of this test were determined by [facility] in accordance with CLIA requirements. This laboratory is qualified under CLIA to perform high-complexity testing. Tricyclics Screen, Urine None Detected None Detected [facility] Comment: The tricyclics screen detects tricyclic antidepressants at concentrations >=150 ng/mL. Not all tricyclics cross-react equally with the antibody used in this screen. A ? Presumptive Positive? result indicates that the screening result was positive but has not yet been confirmed by a highly-specific method. As with any screen, occasional false positive results from cross-reacting substances may occur. Not for Medico-Legal Purposes. This test has not been cleared by the [place] FDA. Performance characteristics of this test were determined by [facility] in accordance with CLIA requirements. This laboratory is qualified under CLIA to perform high-complexity testing. Ethanol Screen, Urine None Detected None Detected [facility] Comment:This urine ethanol a ssay detects ethanol at concentrations >/= 100 mg/L. Amphetamines Screen, Urine None Detected None Detected [facility] Comment: The amphetamine screen detects d-amphetamine and d-methamphetamine at concentrations >300 ng/mL. A ? Presumptive Positive? result indicates that the screening result was positive but has not yet been confirmed by a highly-specific method. As with any screen, occasional false positive results from cross-reacting substances may occur. Not for Medico-Legal Purposes. Adulterants Screen, Urine None Detected None Detected [facility] Comment: No adulteration or dilution of this urine sample was detected. All urine samples submitted for urine drugs of abuse analysis are tested for creatinine concentration, pH, and for the presence of oxidants, nitrites, and chromate. Urine Urine / Unknown 12/31/2021 2 :19 PM EST 12/31/2021 2:26 PM EST Narrative Resulting Agency Comment Spec In Lab Cait Alexandre APRN CHEMISTRY ORDERABLES Performing Organization Address [facility] Co de Phone Number [facility] [place] [address] * Rapid Drug Screen, Urine (DEANDRE Request) (12/31/2021 2:19 PM EST) DEANDRE Conf Requested Yes [facility] DEANDRE Requested See Comment [facility] Comment:Refer to Rapid Drug Screen w/ Confirmation, Urine for results. Urine Urine / Unknown 12/31/2021 2 :19 PM EST 12/31/2021 2:26 PM EST Narrative Resulting Agency Comment Spec In Lab Cait Alexandre APRN URINE ORDERABLES Performing Organization Address [facility] Co de Phone Number [facility] [place] [address] documented in this encounter Visit Diagnoses Diagnosis Weight loss Loss of weight BRBPR (bright red blood per rectum) Hemorrhage of rectum and anus Chronic nausea Nausea alone Chronic abdominal pain Abdominal pain, unspecified site Tachycardia Tachycardia, unspecified documented in this encounter Care Teams Blade Aligner Relationship Specialty Start Date End Date Krystal Kurtz APRN PCP - General Family Medicine 09/23/21 01/22/24 documented as of this encounter
--- OUTSIDE RECORDS SUMMARY | 2024-02-03 12:36 | XMS_ITS | Continuity of Care Document ---
Author Organization [facility] Address [address] [place] [address] Care Team Providers Care Manager Environmental Affairs Name Role Phone MELVA WATTS APRN Primary Care Physician Encounter [facility] NBR [phone] Date(s): 05/26/23 - 05/26/23 [facility] [address] [place] [address]- Encounter Diagnosis Pharyngitis(Discharge Diagnosis) - 05/26/23 Acute pharyngitis, unspecified(Final) - Discharge Disposition: Home or Self Care Attending Physician: KEREN Porter Allergies, Adverse Reactions, Alerts No Known Allergies Assessment and Plan Extracted from: Title:Office Visit Note Author:KEREN Porter Date:05/26/23 1.??Pharyngitis??J02.9 ??Patient with chronic pharyngitis intermittently.?? She has not improved over the past 3 weeks. ??Recommend??swabbing however patient is refusing this secondary to gag reflex.?? At this time she would like to treat with Pen-Vee K which she knows she can do well with on her stomach.?? I did review with her that I would recommend she try Augmentin however she does not wish to try a new medication. ??She does have pending appointment with ENT. ??I did review with her that if she is not improving then she may need to have a medication change. ??She has follow-up with her primary provider in the next couple of weeks. Ordered: penicillin V potassium 250 mg/5 mL oral liquid, 500 mg = 10 mL, Oral, every 8 hr, # 300 mL, 0 Refill(s), Pharmacy: [facility] #[id number], 162.56, cm, 04/12/23 8:47:00 EST, Height, 41.73, kg, 04/22/23 17:44:00 EDT, Weight Dosing ?? Future Appointments Future Scheduled Tests Laboratory* [...] hr, # 8.5 g, 0 Refill(s), Pharmacy: [facility] #[id number], 162, cm, 02/25/23 11:58:00 EST, Height, 42, kg, 03/16/23 18:01:00 EST, Weight Dosing Start Date: 03/17/23 Stop Date: 04/16/23 Status: Ordered Depo-Provera Contraceptive 150 mg/mL intramuscular suspension 1 Unknown, 0 Refill(s) Start Date: 11/29/21 Status: Ordered fosfomycin 3 g oral granule for reconstitution 3 g = 1 EA, Oral, Once, # 1 packets, 0 Refill(s), Pharmacy: [facility] #[id number], 162, cm, 08/15/22 18:08:00 EDT, Height/Length Dosing, 42.64, kg, 01/15/23 20:27:00 EST, Weight Dosing Start Date: 01/15/23 Status: Ordered fosfomycin 3 g oral granule for reconstitution 3 g = 1 EA, Oral, Once, # 1 packets, 0 Refill(s), Pharmacy: [facility] #[id number], 162.56, cm, 04/12/23 8:47:00 EST, Height, 41.73, kg, 04/22/23 17:44:00 EDT, Weight Dosing Start Date: 04/22/23 Status: Ordered fosfomycin 3 g oral granule for reconstitution 3 g = 1 EA, Oral, Once, # 1 packets, 0 Refill(s), Pharmacy: [facility] #[id number], 162.56, cm, 04/12/23 8:47:00 EST, Height, 41.73, kg, 04/22/23 17:44:00 EDT, Weight Dosing Start Date: 04/22/23 Status: Ordered fosfomycin 3 g oral granule for reconstitution 3 g = 1 EA, Oral, Once, # 1 packets, 0 Refill(s), Pharmacy: [facility] #[id number], 162.56, cm, 04/12/23 8:47:00 EST, Height, 41.73, kg, 04/22/23 17:44:00 EDT, Weight Dosing Start Date: 04/22/23 Status: Ordered ondansetron 4 mg oral tablet, disintegrating 4 mg = 1 tab, Oral, TID, # 10 tab, 0 Refill(s), Pharmacy: [facility] #[id number], 162, cm, 02/25/23 11:58:00 EST, Height, 40.8, kg, 02/25/23 12:04:00 EST, Weight Dosing Start Date: 02/25/23 Status: Ordered penicillin V potassium 250 mg/5 mL oral liquid 500 mg = 10 mL, Oral, every 8 hr, # 300 mL, 0 Refill(s), Pharmacy: [facility] #[id number], 162.56, cm, 04/12/23 8:47:00 EST, Height, 41.73, kg, 04/22/23 17:44:00 EDT, Weight Dosing Start Date: 05/26/23 Stop Date: 06/05/23 Status: Ordered Tessalon Perles 100 mg oral capsule 100 mg = 1 cap, Oral, TID, PRN as needed for cough, # 21 cap, 0 Refill(s), Pharmacy: [facility] #[id number], 162, cm, 02/25/23 11:58:00 EST, Height, 42, [...] 1 Temperature Tympanic [36.6-38.1 Deg C] 3 7.3 Deg C (05/26/23 11:40 AM) Peripheral Pulse Rate [60-100 bpm] 90 bp m (05/26/23 11:40 AM) Respiratory Rate [12-24 br/min] 17 br/mi n (05/26/23 11:40 AM) Blood Pressure [90-140/60-90 mmHg] 93/52 mmHg (05/26/23 11:40 AM) Mean Arterial Pressure, Cuff [65-140 mmH g] 66 mmHg (05/26/23 11:40 AM) Social History Social History Type Response Tobacco Never tobacco user, smokeless tobacco daily Tobacco Use:. Sex Female Physician Outpatient Note * KEREN Porter: PERFORM Event Display: Office Clinic Note Physician Authored Date: [id number] JOSE ROBERTO BALBUENA :2005 Age:18 years Sex:Female Visit Date:05/26/2023 Primary Care Physician: MELVA WATTS APRN Chief Complaint sore throat x2 weeks History of Present Illness Patient presents complaining of 3-week history of sore throat. ??She has chronic??history of tonsillitis, pharyngitis. ??She has scheduled appointment in July for review for possible tonsillectomy. ??She was seen in the urgent care 1 week ago treated with steroids??did improve however worsened.?? She denies any fever, chills, sweats. ??This is typical when she has been treated in the past with antibiotics.?? She notes??strong gag reflex and vomits every time she gets her throat swab.?? She denies any abdominal pain, chest pain, shortness of breath, respiratory complaints. ??No upper respiratory runny nose. Physical Exam Vitals & Measurements T:??37.3?C ??(Tympanic)?? HR:??90??(Peripheral)?? RR:??17?? BP:??93/52?? SpO2:??100%?? Well-appearing no acute distress head normocephalic atraumatic Neck supple nontender??no palpable anterior lymphadenopathy. Ears canals clear tympanic membranes normal Mouth pharynx??with large tonsils,??without exudate slight erythema uvula midline no peritonsillar swelling. Lungs clear to auscultation bilateral Assessment/Plan 1.??Pharyngitis??J02.9 ??Patient with chronic pharyngitis intermittently.?? She has not improved over the past 3 weeks. ??Recommend??swabbing however patient is refusing this secondary to gag reflex.?? At this time she would like to treat with Pen-Vee K which she knows she can do well with on her stomach.?? I did review with her that I would recommend she try Augmentin however she does not wish to try a new medication.??She does have pending appointment with ENT. ??I did review with her that if she is not improving then she may need to have a medication change. ??She has follow-up with her primary provider in the next couple of weeks. Ordered: penicillin V potassium 250 mg/5 mL oral liquid, 500 mg = 10 mL, Oral, every 8 hr, # 300 mL, 0 Refill(s), [id number], 162.56, cm, 04/12/23 8:47:00 EST, Height, 41.73, kg, 04/22/23 17:44:00 EDT, Weight Dosing ?? Patient Instructions Verbal instructions per patient [...] Comments : Unit: Unknown Electronically Signed on 05/26/23 12:01 PM KEREN Porter Patient Care team information Care Team Personnel Name: MELVA WATTS APRN Position: No Access Member Role: Primary Care Physician Address: Address: [address], [place] [address] Name: Krystal Kurtz APRN Position: Physician Member Role: Nurse Practitioner Address: Address: [address] [place] [address] [address] [place], [place] [address] Care Team Related Persons Name: FAIZA BALBUENA Name: ALVARO BALBUENA Address: [address] [place], [place] [id number] Name: CAROLINA BALBUENA Address: [facility]
--- OUTSIDE RECORDS SUMMARY | 2024-02-03 12:36 | XMS_ITS | Encounter Summary ---
Author Organization [facility] [place] [address] Care Team Providers Care Film And Video Editor Name Role Phone Jerardo Krystal KIRBY Primary Care Provider [phone] Encounter Details Date Type Department Care Team (Latest Contact Info) Description 01/07/2022 10:02 AM EST - 01/07/2022 1:15 PM EST Hospital En[place] [address] Jayna Coats [facility] [place] [address] Discharge Disposition: Home Social History Tobacco Use Types Packs/Day Years Used Date Smoking Tobacco: Never Smokeless Tobacco: Never Tobacco Cessation:Counseling Given: Not Answered Comments:Vaping more than 10X/day according to pt Alcohol Use Standard Drinks/Week Comments Never 0 (1 standard drink = 0.6 oz pur e alcohol) Sex and Gender Information Value Date Recorded Sex Assigned at Not on file Gender Identity Not on file Sexual Orientation Not on file documented as of this encounter Last Filed Vital Signs Vital Sign Reading Time Taken Comments Blood Pressure 111/70 01/07/2022 10:35 AM EST Pulse 110 01/07/2022 10:35 AM EST Temperature 36.8 ??C (98.2 ??F) 01/07/2022 10:[address] Respiratory Rate - - Oxygen Saturation 100% 01/07/2022 10:35 AM EST Inhaled Oxygen Concentration - - Weight 38.1 kg (84 lb) 01/07/2022 10:35 AM EST Height 162.6 cm (5' 4) 01/07/2022 10:35 AM EST Body Mass Index 14.42 01/07/2022 10:35 AM EST Body Mass Index Percentile 0.00% 01/07/2022 10: 35 AM EST Growth Chart: [facility] (Girls, 2- 20 Years) documented in this encounter Medications at Time of Discharge Medication Sig Dispensed Refills Start Date End Date hyoscyamine SL (Levsin SL) 0.[address], [address] 1 TABLET UNDER THE TONGUE FOUR TIMES A DAY NEEDED FOR DYSPNEA 11/17/2021 busPIRone (Buspar) 5 mg Tablet TAKE ONE TABLET BY MOUTH EVERY MORNING, 1 TABLET IN THE AFTERNOON, AND TAKE TWO TABLETS BY MOUTH AT BEDTIME 12/17/2021 ondansetron ODT (Zofran-ODT) 4 mg Tablet, Rapid Dissolve DISSOLVE ONE TABLET ON TONGUE EVERY 8 HOURS NEEDED FOR NAUSEA 12/17/2021 polyethylene glycoL (Miralax) 17 gram Powder in Packet DISSOLVE 1 PACKET IN WATER & DRINK ONCE DAILY NEEDED FOR CONSTIPATION 10/09/2021 medroxyPROGESTERone (Depo-PROVERA) 150 mg/mL Syringe INJECT 1ML INTRAMUSCULAR EVERY 12 WEEKS 10/17/2021 documented as of this encounter H&P Notes * Jayna Coats DO - 01/07/2022 11:28 AM EST Patient Name: Marilu Dee Patient Age: 16 y.o. Birthdate: 2005 Admit date: 01/07/2022 Attending Physician: Jayna Coats DO Chart and previous notes reviewed. Interval history unchanged from previous note. Indication for procedure: malnutrition Patient Vitals for the past 24 hrs: Temp Pulse BP SpO2 O2 Device 01/07/22 1035 36.8 ??C (98.2 ??F) 110 111/70 100 % RA Examination completed and does not preclude proceeding with procedure. Gen: well appearing HEENT: mmm, anicteric sclera. Resp: no resp distress, no wheezing, no stridor Abd: Soft, ND/NT, +bs, no organomegaly Ext: normal cap refill, warm Skin: no jaundice, rash Evaluated by anesthesia team and decision made to proceed. Wt Readings from Last 3 Encounters: 01/07/22 (!) 38.1 kg (84 lb) (<1 %)* 12/31/21 (!) 38.1 kg (84 lb) (<1 %)* * Growth percentiles are based on CDC (Girls, 2-20 Years) data. Ht Readings from Last 3 Encounters: 01/07/22 162.6 cm (5' 4) (47 %)* 12/31/21 162.3 cm (5' 3.9) (45 %)* * Growth percentiles are based on CDC (Girls, 2-20 Years) data. Body mass index is 14.42 kg/m??. <1 %ile based on CDC (Girls, 2-20 Years) BMI-for-age based on body measurements available as of 01/07/2022. <1 %ile based on CDC (Girls, 2-20 Years) [id number] data based on Weight recorded on 01/07/2022. 47 %ile based on CDC (Girls, 2-20 Years) [id number] data based on Stature recorded on 01/07/2022. Medications reviewed. Allergies Allergen Reactions ??? Penicillins Rash Patient Active Problem List Diagnosis Code ??? Anxiety F41.9 ??? Encounter for surveillance of injectable contraceptive Z30.42 ??? Epigastric pain R10.13 ??? Loss of appetite R63.0 ??? Major depression, single episode F32.9 ??? Nausea R11.0 Plan: Upper and lower endoscopies with biopsies Family has consented to proceed. Jayna Coats DO Pediatric Gastroenterology Pager [phone] documented in this encounter Plan of Treatment Not on file documented as of this encounter Visit Diagnoses Not on filedocumented in this encounter Administered Medications Inactive Administered Medications - up to 3 most recent administrations Medication Order MAR Action Action Date Dose Rate Site lactated ringers infusion 100 mL/hr, Intravenous, CONTINUOUS, Starting on 01/07/22 at 1045, Until Fri01/07/22 at 1518, Endoscopy (Day of Procedure) New Bag 01/07/2022 10:40 AM EST 100 mL/hr 100 mL/hr documented in this encounter Active and Recently Administered Medications Times are shown in EST. Continuous Medication Order 01/05/2022 01/06/2022 01/07/2022 lactated ringers infusion 100 mL/hr, Intravenous, CONTINUOUS, Starting on Fri01/07/22 at 1045, Until Fri01/07/22 at 1518, Endoscopy (Day of Procedure) 1040 (New Bag - Prov ider: Sharon Vo RN) documented in this encounter Care Teams Film And Video Editor Relationship Specialty Start Date End Date Krystal Kurtz APRN PCP - General Family Medicine 09/23/21 01/22/24 documented as of this encounter
--- OUTSIDE RECORDS SUMMARY | 2024-02-03 12:36 | XMS_ITS | Clinical Summary ---
Author Organization [facility] Address [address] [place] [address] Care Team Providers Care Boiler Service Technician Name Role Phone Unavailable Primary Care Provider Unavailabl e Social History Tobacco Use Types Packs/Day Years Used Date Smoking Tobacco: Never Assessed Comments Unknown Sex and Gender Information Value Date Recorded Sex Assigned at Not on file Legal Sex Female 3:24 EDT Gender Identity Not on file Sexual Orientation Not on file Plan of Treatment Health Maintenance Due Date Last Done Comments Hepatitis C Screen 2005 Hepatitis B Vaccine (1 of 3 - 19+ 3-dose series) 01/09 COVID-19 Vaccine (2023- season) 2023
--- OUTSIDE RECORDS SUMMARY | 2024-02-03 12:36 | XMS_ITS | Encounter Summary ---
Author Organization [facility] Address [address] [place] [address] Care Team Providers Care Corporate Driver Name Role Phone Unavailable Primary Care Provider Unavailabl e Encounter Details Date Type Department Care Team (Late st Contact Info) Description 05/02/2022 Lab Requisition [facility] - [facility] [address] [place] [address] Outr Resulting Lab, Provider Social History Tobacco [...] Comments CHLAMYDIA/N. GONORRHOEAE AMPLIFIED NUCLEIC ACID Routine 05/02/2022 10:30 EDT documented in this encounter Results * CHLAMYDIA/N. GONORRHOEAE AMPLIFIED RNA (05/02/2022 10:30 EDT) Neisseria gonorrhoeae Result Negative Negative 05/03/2022 13:50 EDT [facility] Chlamydia trachomatis Result Negative Negative 05/03/2022 13:50 EDT [facility] Urine URINE / Unknown 05/02/2022 1 0:30 EDT 05/02/2022 21:42 EDT Narrative [facility] - 05/03/2022 13:50 EDT A first catch urine specimen is acceptable for detection of Gonorrhea and Chlamydia, but might detect up to 10% fewer infections when compared with vaginal and endocervical swab samples. us Provider Outr Resulting Lab MICROBIOLOGY - GENER AL ORDERABLES Final Result [facility] [address] [place] [address] documented in this encounter Visit Diagnoses Not on filedocumented in this encounter
--- OUTSIDE RECORDS SUMMARY | 2024-02-03 12:36 | XMS_ITS | Encounter Summary ---
Author Organization [facility] Address [address] [place] [address] Care Team Providers Care Deburr Operator Name Role Phone Unavailable Primary Care Provider Unavailabl e Encounter Details Date Type Department Care Team (Late st Contact Info) Description 08/06/2021 Lab Requisition [facility]ology & Laboratory Medicine - [facility] [address] [place] [address] Outr Resulting Lab, Provider Social History Tobacco [...] Comments CHLAMYDIA/N. GONORRHOEAE AMPLIFIED NUCLEIC ACID Routine 08/06/2021 2:10 EDT documented in this encounter Results * CHLAMYDIA/N. GONORRHOEAE AMPLIFIED RNA (08/06/2021 2:10 EDT) Neisseria gonorrhoeae Result Negative Negative 08/08/2021 12:47 EDT [facility] Chlamydia trachomatis Result Negative Negative 08/08/2021 12:47 EDT [facility] Swab ENTIRE WALL OF CERVIX / Unknown 08/06/2021 2:10 EDT 08/06/2021 17:41 EDT us Provider Outr Resulting Lab MICROBIOLOGY - GENER AL ORDERABLES Final Result [facility] [address] [place] [address] documented in this encounter Visit Diagnoses Not on filedocumented in this encounter
--- OUTSIDE RECORDS SUMMARY | 2024-02-03 12:36 | XMS_ITS | Encounter Summary ---
Author Organization [facility] Address [address] [place] [address] Care Team Providers Care Programming Specialist Name Role Phone Unavailable Primary Care Provider Unavailabl e Encounter Details Date Type Department Care Team (Late st Contact Info) Description 02/12/2023 Lab Requisition [facility] Pathology & Laboratory Medicine - [facility] [address] [place] [address] Outr Resulting Lab, Provider Social History Tobacco [...] Comments CHLAMYDIA/N. GONORRHOEAE AMPLIFIED NUCLEIC ACID Routine 02/12/2023 11:14 EST documented in this encounter Results * CHLAMYDIA/N. GONORRHOEAE AMPLIFIED RNA (02/12/2023 11:14 EST) Neisseria gonorrhoeae Result Negative Negative 02/13/2023 14:24 EST [facility] Chlamydia trachomatis Result Negative Negative 02/13/2023 14:24 EST [facility] Urine URINE / Unknown 02/12/2023 1 1:14 EST 02/12/2023 18:42 EST Narrative [facility] - 02/13/2023 14:24 EST A first catch urine specimen is acceptable for detection of Gonorrhea and Chlamydia, but might detect up to 10% fewer infections when compared with vaginal and endocervical swab samples. us Provider Outr Resulting Lab MICROBIOLOGY - GENER AL ORDERABLES Final Result [facility] [address] [place] [address] documented in this encounter Visit Diagnoses Not on filedocumented in this encounter
--- OUTSIDE RECORDS SUMMARY | 2024-02-03 12:36 | XMS_ITS | Encounter Summary ---
Author Organization Formerly [facility] [place] [address] Care Team Providers Care Sliver Lapper Name Role Phone Krystal Kurtz APRN Primary Care Provider [phone] Encounter Details Date Type Department Care Team (Late st Contact Info) Description 06/10/2022 Telephone [place] [phone] Bartolome Gonzales Social History Tobacco Use Types Packs/Day Years Used Date Smoking Tobacco: Never Smokeless Tobacco: Never Comments:Vaping more than 1 0X/day according to pt Alcohol Use Standard Drinks/Week Comments Never 0 (1 standard drink = 0.6 oz pur e alcohol) Sex and Gender Information Value Date Recorded Sex Assigned at Not on file Gender Identity Not on file Sexual Orientation Not on file documented as of this encounter Miscellaneous Notes * Telephone Encounter - Bartolome Gonzales - 06/10/2022 4:51 PM EDT Patient called to schedule appointments on Friday with Dr. Ronaldo Diaz, and Cait. Patient hasfrequently no showed. Patient can not make it to in person appointments. All three agreed that she should see an adult GI provider or an eating disorder center closer to home. She can get the resources that she needs in person. documented in this encounter Plan of Treatment Not on file documented as of this encounter Visit Diagnoses Not on filedocumented in this encounter Care Teams Sliver Lapper Relationship Specialty Start Date End Date Krystal Kurtz APRN PCP - General Family Medicine 09/23/21 01/22/24 documented as of this encounter
--- OUTSIDE RECORDS SUMMARY | 2024-02-03 12:36 | XMS_ITS | Encounter Summary ---
Author Organization [facility] Address [address] [place] [address] Care Team Providers Care Branch Associate Name Role Phone Unavailable Primary Care Provider Unavailabl e Encounter Details Date Type Department Care Team (Late st Contact Info) Description 03/14/2023 Lab Requisition [facility] Pathology & Laboratory Medicine - [facility] [address] [place] [address] Outr Resulting Lab, Provider Social History Tobacco [...] Comments CHLAMYDIA/N. GONORRHOEAE AMPLIFIED NUCLEIC ACID Routine 03/14/2023 10:00 EST documented in this encounter Results * CHLAMYDIA/N. GONORRHOEAE AMPLIFIED RNA (03/14/2023 10:00 EST) Neisseria gonorrhoeae Result Negative Negative 03/15/2023 15:31 EST [facility] Chlamydia trachomatis Result Negative Negative 03/15/2023 15:31 EST [facility] Swab VAGINAL STRUCTURE / Unknown 03/14/2023 10:00 EST 03/14/2023 21:35 EST us Provider Outr Resulting Lab MICROBIOLOGY - GENER AL ORDERABLES Final Result [facility] [address] [place] [address] documented in this encounter Visit Diagnoses Not on filedocumented in this encounter
--- OUTSIDE RECORDS SUMMARY | 2024-02-03 12:36 | XMS_ITS | Encounter Summary ---
Author Organization [facility] Address [facility] [place] [address] Care Team Providers Care Guard Captain Name Role Phone Krystal Kurtz APRN Primary Care Provider [phone] Reason for Referral * Physical Therapy (Routine) - Closed Specialty Diagnoses / Procedures Referred By Contac t Referred To Contact Physical Therapy Diagnoses Dysmenorrhea Dyspareunia, female On Depo-Provera for contraception Menorrhagia with regular cycle Isabelle Thrasher MD [facility] [place] [address] [facility], [address] [address] Referral ID Status Reason Start Date Expiration Date V isits Requested Visits Authorized [id number] Closed Evaluate and Treat 06/20/2023 12/17/2023 12 12 Reason for Visit * Consultation (Routine) - Authorized Specialty Diagnoses / Procedures Referred By Contac t Referred To Contact Obstetrics and Gynecology Diagnoses Dysmenorrhea, unspecified HAS TRIED DEPO PROVERA, OCPS, NEXPLANON. DECLINES IUDS. WANTS DISCUSSION ABOUT ENDOMETRIOSIS Barbara Orourke, [place] [address] [place] [address] [facility] [employer] [address] [place] [address] Referral ID Status Reason Start Date Expiration Date Visits Requested Visits Authorized [id number] Authorized Consult, Test & Treat PCP Updated and/or Approved 04/18/2023 04/17/2024 6 6 Encounter Details Date Type Department Care Team (Late st Contact Info) Description 06/20/2023 9:00 AM EDT Office Visit Obstetrics [place] [address] Isabelle Thrasher MD [facility] [place] [address] Dysmenorrhea; Dyspareunia, female; On Depo-Provera for contraception; Menorrhagia with regular cycle Social History Tobacco Use Types Packs/Day Years [...] on file documented as of this encounter Progress Notes * Isabelle Thrasher MD - 06/20/2023 9:00 AM EDT [employer] VISIT Referring Provider: M[place] [address] S: Marilu Dee is G0 female with dysmenorrhea, HMB, managed with Depo- Provera, presents for 1) counseling on endometriosis, 2) BV testing, and 3) dyspareunia evaluation #HMB, dysmenorrhea #Current Depo use Menarche onset: age 13 Menses: monthly, prolonged heavy bleeding, can last 2-3 wks, with passage of blood clots. Previously sought [facility] for initial evaluation. Initially tried the OCP (from age [age]) without relief, and it did not induce amenorrhea. Started using Depo Provera at age of 16 yo with excellent relief - complete amenorrhea. She did take a break from Depo-Provera from Oct 2022 through Feb 2023 and reported recurrence of HMB, clots and dysmenorrhea. FHx Endometriosis - mom and sister both diagnosed by laparoscopy #Dyspareunia Reports sexually active for 2 yrs with dyspareunia since. She's been with the same male partner for1 year. Reports pain with penetration. Has had prior pelvic exam, reportedly by OBGYN, and was informed she had MSK dysfunction, otherwiseno structural abnormalities on exam. She reports having had TVUS without significant abnormalities.Office and imaging records are not available for review at time of the visit Never tried PFFT. Denies chronic pain outside the context of menstrual cycle or intercourse. Hx of PID/STD: denies. Last STD testing 1 wk ago, neg GC/CT (see [facility] result). Plan future fertility around age 24 yo. Pap Hx: N/A #Recent BV infection Hx of frequent BV infection. Recently took Metronidazole. She requests repeat testing to ensure adequate treatment. She declines pelvic exam for assessment of above complaints given discomfort with exam. ROS: other systems otherwise negative Past Medical History: Diagnosis Date Anxiety Depression GERD (gastroesophageal reflux disease) No past surgical history on file. Current Outpatient Medications on File Prior to Visit Medication Sig Dispense Refill hyoscyamine SL (Levsin SL) 0.[address], [address] 1 TABLET UNDER THE TONGUE FOUR TIMES ADAY NEEDED FOR DYSPNEA busPIRone (Buspar) 5 mg Tablet TAKE ONE TABLET BY MOUTH EVERY MORNING, 1 TABLET IN THE AFTERNOON, AND TAKE TWO TABLETS BY MOUTH AT BEDTIME ondansetron ODT (Zofran-ODT) 4 mg Tablet, Rapid Dissolve DISSOLVE ONE TABLET ON TONGUE EVERY 8 HOURS NEEDED FOR NAUSEA polyethylene glycoL (Miralax) 17 gram Powder in Packet DISSOLVE 1 PACKET IN WATER & DRINK ONCE DAILY NEEDED FOR CONSTIPATION medroxyPROGESTERone (Depo-PROVERA) 150 mg/mL Syringe INJECT 1ML INTRAMUSCULAR EVERY 12 WEEKS No current facility-administered medications on file prior to visit. Social History Socioeconomic History Marital status: Single Spouse name: Not on file Number of children: Not on file Years of education: Not on file Highest education level: Not on file Occupational History Not on file Tobacco Use Smoking status: Never Smokeless tobacco: Never Tobacco comments: Vaping more than 10X/day according to pt Vaping Use Vaping Use: Every day Substances: Nicotine, Flavoring Devices: Disposable Passive vaping exposure: Yes Substance and Sexual Activity Alcohol use: Never Drug use: Never Sexual activity: Not on file Other Topics Concern Not on file Social History Narrative Not on file Social Determinants of Health Financial Resource Strain: Not on file Food Insecurity: Not on file Transportation Needs: Not on file Physical Activity: Not on file Intimate Partner Violence: Not on file Housing Stability: Not on file Allergies Allergen Reactions Penicillins Rash O: General Appearance: appears comfortable NAD Chest: CTAB, no wrc CV: RRR no mrg Abd: soft, nondistended nontender Pelvic exam: patient declined Ext: no edema or calf tenderness Results for orders placed or performed in visit on 06/20/23 POCT urine Result Value Ref Range POC Urine HCG Negative POC Control Internal Controls Acceptable A&P: Marilu Dee is 18 y.o. G0 w/ Hx of HMB, dysmenorrhea, currently well managed with Depo-Provera presents for counseling and evaluation of dyspareunia and recent BV infection. Complete assessment is limited by lack of records from prior work up and patient declining pelvic exam. She was informed that my assessment and counseling will be limited, and she expressed understanding. I reviewed the ddx of her HMB, dysmenorrhea and dyspareunia include fibroids, adenomyosis, long standing vaginitis, cervicitis, endometritis, PID. Endometriosis could explain dysmenorrhea, dyspareunia & HMB, but given excellent symptomatic relief from Depo-Provera, would not recommend diagnostic laparos copy. She was counseled that laparoscopy carries risks associated with invasive surgery, so it's often diagnosed presumptively, and managed clinically. Other ddx for dyspareunia include structural pelvic floor dysfunction. All questions answered. The following plans were established today with Marilu. --Expanded STD screening to include: HIV, HCV, HBV, Trich, BV. Self swab per patient preference. GC/CT not repeated. --Continue Depo-Provera for mgt of HMB and dysmenorrhea, dual contraceptive benefit --Request outside record --STD Counseling - recommended routine STD screening during sexually active yrs, recommend condom use. Mayito Thrasher MD, PGY3 Obstetrics and Gynecology 06/20/2023 * Nicol Laguna MD - 06/20/2023 9:00 AM EDT The case was discussed in person at the time of the visit or immediately after the visit. The assessment and plan were formulated in discussion with me and I agree with them as documented. I have reviewed the history, physical exam, assessment and plan with the resident. Nicol Laguna MD documented in this encounter Plan of Treatment Scheduled Referrals Name Type Priority Associated Diagnoses Orde r Schedule Referral to Physical Therapy Outpatient Referral Routine Dysmenorrhea Dyspareunia, female On Depo-Provera for contraception Menorrhagia with regular cycle Ordered: 06/20/2023 documented as of this encounter Procedures Procedure Name Priority Date/Time Associated Diagnosis Comments VAGINITIS/OSIS PANEL ([facility]/APD/NL/CGP) Routine 06/20/2023 4:00 PM EDT Dysmenorrhea Dyspareunia, female POCT URINE Routine 06/20/2023 10:00 AM EDT documented in this encounter Results * Vaginitis/osis Panel ([facility]/APD/NLH/CGP) (06/20/2023 4:00 PM EDT) Bacterial vaginosis Negative Negative [facility] Elvira sp. Group Negative Negative [facility] Elvira Glabrata Negative Negative [facility] Trichomonas vaginalis Negative Negative [facility] BV/CV/TV Interp Results from these nucleic acid amplification assay should be interpreted in conjunction with other available clinical and laboratory data. ??Negative results do not rule out a possible infection. ??Accurate results are dependent on adequate specimen collection. ??Invalid results indicate there was an error generating a result, sample recollection is suggested. ??Bacterial species targeted by the BV assay may comprise part of the normal microbiome for a significant number of women. ??Elvira sp. group target includes C. albicans, C. tropicalis, C. parapsilosis, C. dubliniensis. ??The Aptima CV/TV and BV Assay were tested on the [employer] [place] Instrument. These assays are cleared by the [place] Food & Drug Administration for clinical testing. [facility] Vaginal 06/20/2023 4:00 PM EDT 06/20/2023 4:00 PM EDT Narrative Resulting Agency Comment Spec In Lab Nicol Laguna MD MICROBIOLOGY - NERAL ORDERABLES [facility] [place] [address] * POCT urine (06/20/2023 10:00 AM EDT) POC Urine HCG Negative POC Control Internal Controls Acceptable 06/20/2023 10:0 0 AM EDT Nicol Laguna MD POINT OF CARE SOUTH T ORDERABLES documented in this encounter Visit Diagnoses Diagnosis Dysmenorrhea Dyspareunia, female Dyspareunia On Depo-Provera for contraception Menorrhagia with regular cycle Excessive or frequent menstruation documented in this encounter Care Teams Guard Captain Relationship Specialty Start Date End Date Krystal Kurtz APRN PCP - General Family Medicine 09/23/21 01/22/24 documented as of this encounter
--- OUTSIDE RECORDS SUMMARY | 2024-02-03 12:36 | XMS_ITS | Encounter Summary ---
Author Organization [facility] Address [address] [facility] [place] [address] Care Team Providers Care Assistant Chief Of Police Name Role Phone Krystal Kurtz APRN Primary Care Provider [phone] Encounter Details Date Type Department Care Team (Latest Contact Info) Description 06/20/2023 Travel Social History Tobacco Use Types Packs/Day Years [...] on filedocumented in this encounter Care Teams Assistant Chief Of Police Relationship Specialty Start Date End Date Krystal Kurtz APRN PCP - General Family Medicine 09/23/21 01/22/24 documented as of this encounter
--- OUTSIDE RECORDS SUMMARY | 2024-02-03 12:36 | XMS_ITS | Encounter Summary ---
Author Organization [facility] Address [address] [place] [address] Care Team Providers Care Training Program Developer Name Role Phone Unavailable Primary Care Provider Unavailabl e Encounter Details Date Type Department Care Team (Late st Contact Info) Description 04/15/2022 Lab Requisition [facility] Pathology & Laboratory Medicine - [facility] [address] [place] [address] Outr Resulting Lab, Provider Social History Tobacco [...] Comments CHLAMYDIA/N. GONORRHOEAE AMPLIFIED NUCLEIC ACID Routine 04/14/2022 12:06 EST documented in this encounter Results * CHLAMYDIA/N. GONORRHOEAE AMPLIFIED RNA (04/14/2022 12:06 EST) Neisseria gonorrhoeae Result Negative Negative 04/16/2022 13:12 EST [facility] Chlamydia trachomatis Result Negative Negative 04/16/2022 13:12 EST [facility] Swab ENTIRE VAGINA / Unknown 04/14/2022 12:06 EST 04/15/2022 17:25 EST us Provider Outr Resulting Lab MICROBIOLOGY - GENER AL ORDERABLES Final Result [facility] [address] [place] [address] documented in this encounter Visit Diagnoses Not on filedocumented in this encounter
--- OUTSIDE RECORDS SUMMARY | 2024-02-03 12:36 | XMS_ITS | Encounter Summary ---
Author Organization [facility] Address [facility] [place] [address] Care Team Providers Care Automatic Pinsetter Adjuster Name Role Phone Krystal Kurtz APRN Primary Care Provider Reason for Visit * Consultation (Routine) - Closed Specialty Diagnoses / Procedures Referred By Contact Referred To Contact Pediatric Gastroenterology Diagnoses Weight loss Chronic abdominal pain Anxiety Cait Alexandre APRN [facility] [place] [address] Liset Higgnis, PhD [facility] [place] [address] Referral ID Status Reason Start Date Expiration Date V isits Requested Visits Authorized [id number] Closed Specialty Service Requested 2022 2023 1 1 Encounter Details Date Type Department Care Team (Latest Contact Info) Description 06/07/2022 9:00 AM EDT TH Visit (TeleHealth) Pediatric [place] [address] Liset Higgins, PhD PATIENT NOT SEEN Social History Tobacco Use Types Packs/Day Years [...] as of this encounter Progress Notes * Liset Higgins, PhD - 06/07/2022 9:00 AM EDT This patient was not seen in this encounter. documented in this encounter Plan of Treatment Scheduled Referrals Name Type Priority Associated Diagnoses Order Schedule Referral to Pediatric Gastroenterology Outpatient Referral Routine Weight loss Chronic abdominal pain Anxiety Ordered: 2022 documented as of this encounter Visit Diagnoses Diagnosis DH PATIENT NOT SEEN documented in this encounter Care Teams Automatic Pinsetter Adjuster Relationship Specialty Start Date End Date Krystal Kurtz APRN PCP - General Family Medicine 09/23/21 01/22/24 documented as of this encounter
--- OUTSIDE RECORDS SUMMARY | 2024-02-03 12:36 | XMS_ITS | Encounter Summary ---
Author Organization [facility] Address [facility] [place] [address] Care Team Providers Care Apartment Leasing Specialist Name Role Phone Krystal Kurtz APRN Primary Care Provider [phone] Encounter Details Date Type Department Care Team (Late st Contact Info) Description 06/19/2023 Telephone Obstetrics [place] [address] Mira Irizarry Social History Tobacco Use Types Packs/Day Years [...] on filedocumented in this encounter Care Teams Apartment Leasing Specialist Relationship Specialty Start Date End Date Krystal Kurtz APRN PCP - General Family Medicine 09/23/21 01/22/24 documented as of this encounter
--- OUTSIDE RECORDS SUMMARY | 2024-02-03 12:36 | XMS_ITS | Encounter Summary ---
Author Organization [facility] Address [address] [place] [address] Care Team Providers Care Dressmaker Helper Name Role Phone Unavailable Primary Care Provider Unavailabl e Encounter Details Date Type Department Care Team (Late st Contact Info) Description 09/23/2023 Lab Requisition [facility] Pathology & Laboratory Medicine - [facility] [address] [place] [address] Outr Resulting Lab, Provider Social History Tobacco [...] Comments CHLAMYDIA/N. GONORRHOEAE AMPLIFIED NUCLEIC ACID Routine 09/23/2023 10:30 EDT documented in this encounter Results * CHLAMYDIA/N. GONORRHOEAE AMPLIFIED NUCLEIC ACID (09/23/2023 10:30 EDT) Neisseria gonorrhoeae Result Negative Negative 09/24/2023 11:51 EDT [facility] Chlamydia trachomatis Result Negative Negative 09/24/2023 11:51 EDT [facility] Urine URINE / Unknown 09/23/2023 1 0:30 EDT 09/23/2023 19:27 EDT Narrative [facility] - 09/24/2023 11:51 EDT A first catch urine specimen is acceptable for detection of Gonorrhea and Chlamydia, but might detect up to 10% fewer infections when compared with vaginal swab samples. us Provider Outr Resulting Lab MICROBIOLOGY - GENER AL ORDERABLES Final Result [facility] [address] [place] [address] documented in this encounter Visit Diagnoses Not on filedocumented in this encounter
--- OUTSIDE RECORDS SUMMARY | 2024-02-03 12:36 | XMS_ITS | Continuity of Care Document ---
Author Organization [facility] Address [address] [place] [address] Care Team Providers Care Environmental Health Sanitarian Name Role Phone MELVA WATTS APRN Primary Care Physician Encounter [facility] NBR [id number] Date(s): 04/22/23 - 04/22/23 [facility] [address] [place] [address]- Encounter Diagnosis Dysuria(Discharge Diagnosis) - 04/22/23 Dysuria(Final) - Discharge Disposition: Home or Self Care Attending Physician: Hiwot Pelaez PA-C Allergies, Adverse Reactions, Alerts No Known Allergies Assessment and Plan Extracted from: Title:Office Visit Note Author:KEREN Soler Date:04/23/23 1.??Dysuria??R30.0 Patient presenting with complaints of dysuria, urgency, frequency.?? Her urine dip today shows no leukocytes, nitrates, blood. ??We will send for a culture and sensitivity.?? I will send a prescription for fosfomycin in the event that her culture returns positive. ??She should not take the antibiotic if??negative.?? I strongly encourage that we perform a pelvic exam today however patient refuses.?? She opted to perform a selfie swab??to screen for vaginitis panel.?? These results returned negative.?? Explained to patient that??examination of the area that??she feels like is a??cut??would be helpful in better identifying the cause of her symptoms.?? She again declines.?? I encouraged that she follow-up with PCP If symptoms are not improving. Ordered: fosfomycin 3 g oral granule for reconstitution, 3 g = 1 EA, Oral, Once, # 1 packets, 0 Refill(s), Pharmacy: [facility] #[id number], 162.56, cm, 04/12/23 8:47:00 EST, Height, 41.73, kg, 04/22/23 17:44:00 EDT, Weight Dosing fosfomycin 3 g oral granule for reconstitution, 3 g = 1 EA, Oral, Once, # 1 packets, 0 Refill(s), Pharmacy: [facility] #[id number], 162.56, cm, 04/12/23 8:47:00 EST, Height, 41.73, kg, 04/22/23 17:44:00 EDT, Weight Dosing Urine Culture, Urine, Clean Catch, Routine collect, RT - Routine, 04/22/23 18:20:00 EDT, Once, Lab Collect, Collected, by LHRPLOOF, Micro Spec, Dysuria, Print Label, Not Required ?? Orders: fosfomycin 3 g oral granule for reconstitution, 3 g = 1 EA, Oral, Once, # 1 packets, 0 Refill(s), Pharmacy: [facility] #[id number], 162.56, cm, 04/12/23 8:47:00 EST, Height, 41.73, kg, 04/22/23 17:44:00 EDT, Weight Dosing Future Scheduled Tests Laboratory* Urine Culture 01/03/23 [...] hr, # 8.5 g, 0 Refill(s), Pharmacy: [facility] #[id number], 162, cm, 02/25/23 11:58:00 EST, Height, 42, kg, 03/16/23 18:01:00 EST, Weight Dosing Start Date: 03/17/23 Stop Date: 04/16/23 Status: Ordered Depo-Provera Contraceptive 150 mg/mL intramuscular suspension 1 Unknown, 0 Refill(s) Start Date: 11/29/21 Status: Ordered fosfomycin 3 g oral granule for reconstitution 3 g = 1 EA, Oral, Once, # 1 packets, 0 Refill(s), Pharmacy: [facility] #[id number], 162, cm, 08/15/22 18:08:00 EDT, Height/Length Dosing, 42.64, kg, 01/15/23 20:27:00 EST, Weight Dosing Start Date: 01/15/23 Status: Ordered fosfomycin 3 g oral granule for reconstitution 3 g = 1 EA, Oral, Once, # 1 packets, 0 Refill(s), Pharmacy: [facility] #[id number], 162.56, cm, 04/12/23 8:47:00 EST, Height, 41.73, kg, 04/22/23 17:44:00 EDT, Weight Dosing Start Date: 04/22/23 Status: Ordered fosfomycin 3 g oral granule for reconstitution 3 g = 1 EA, Oral, Once, # 1 packets, 0 Refill(s), Pharmacy: [facility] #[id number], 162.56, cm, 04/12/23 8:47:00 EST, Height, 41.73, kg, 04/22/23 17:44:00 EDT, Weight Dosing Start Date: 04/22/23 Status: Ordered fosfomycin 3 g oral granule for reconstitution 3 g = 1 EA, Oral, Once, # 1 packets, 0 Refill(s), Pharmacy: [facility] #[id number], 162.56, cm, 04/12/23 8:47:00 EST, Height, 41.73, kg, 04/22/23 17:44:00 EDT, Weight Dosing Start Date: 04/22/23 Status: Ordered ondansetron 4 mg oral tablet, disintegrating 4 mg = 1 tab, Oral, TID, # 10 tab, 0 Refill(s), Pharmacy: [facility] #[id number], 162, cm, 02/25/23 11:58:00 EST, Height, 40.8, kg, 02/25/23 12:04:00 EST, Weight Dosing Start Date: 02/25/23 Status: Ordered Tessalon Perles 100 mg oral capsule 100 mg = 1 cap, Oral, TID, PRN as needed for cough, # 21 cap, 0 Refill(s), Pharmacy: [facility] #[id number], 162, cm, 02/25/23 11:58:00 EST, Height, 42, [...] Results Laboratory List Name Date .Urinalysis POCT 04/22/23 Most recent to oldest [Reference Range]: 1 Method of Collect POC clean catch *NA* (04/22/23 5:48 PM) Specific Sullivan, Ur POC 1.025 *NA* (04/22/23 5:48 PM) Glucose, Urine POC Negative mg/dL *NA* (04/22/23 5:48 PM) Bilirubin, Urine POC [Negative] Negative (04/22/23 5:48 PM) Ketones, Urine POC [Negative mg/dL] Nega tive mg/dL (04/22/23 5:48 PM) Blood, Urine POC [Negative] Negative (04/22/23 5:48 PM) pH, Urine POC 7.50 *NA* (04/22/23 5:48 PM) Protein, Urine POC [Negative mg/dL] Nega tive mg/dL (04/22/23 5:48 PM) Urobilinogen, Urine POC [0.2] 0.2 (04/22/23 5:48 PM) Nitrite, Urine POC [Negative] Negative (04/22/23 5:48 PM) Leuk Esterase, Urine POC [Negative] Nega tive (04/22/23 5:48 PM) Vital Signs Most recent to oldest [Reference Range]: 1 Temperature Tympanic [36.6-38.1 Deg C] 3 6.7 Deg C (04/22/23 5:41 PM) Peripheral Pulse Rate [60-100 bpm] 97 bp m (04/22/23 5:41 PM) Respiratory Rate [12-24 br/min] 18 br/mi n (04/22/23 5:41 PM) Blood Pressure [90-140/60-90 mmHg] 120/6 1mmHg (04/22/23 5:41 PM) Mean Arterial Pressure, Cuff [65-140 mmH g] 81 mmHg (04/22/23 5:41 PM) Weight 41.73 kg (04/22/23 5:41 PM) Weight Measured (lbs) 91.999 lb (04/22/23 5:41 PM) Weight Dosing 41.730 kg (04/22/23 5:41 PM) Weight Percentile 0.48 1 (04/22/23 5:41 PM) 1Result Comment: ^~:!Percentile Source -[facility] Social History Social History Type Response Tobacco Never tobacco user, smokeless tobacco daily Tobacco Use:. Sex Female Physician Outpatient Note * Hiwot Pelaez PA-C: PERFORM Event Display: Office Clinic Note Physician Authored Date: [id number] JOSE ROBERTO BALBUENA :2005 Age:18 years Sex:Female Visit Date:04/22/2023 Primary Care Physician: MELVA WATTS APRN Chief Complaint burning with urination. R/O UTI History of Present Illness This is a 18-year-old female who presents??for evaluation of dysuria. ??Patient reports over the last couple days she has had burning with urination, urgency, frequency.?? She notes it feels like there is a??cut??in the vaginal area as well.?? She has not noticed any pelvic pain or vaginal discharge.?? She denies any fever, chills, flank pain, nausea, vomiting.?? She has a history of frequent UTI and admits symptoms feel similar Physical Exam Vitals & Measurements T:??36.7?C ??(Tympanic)?? HR:??97??(Peripheral)?? RR:??18?? BP:??120/61?? SpO2:??100%?? WT:??41.73??kg?? WT:??0.48??(Percentile)?? Pain Score:??6?? General: A&O x 3, well-built and hydrated, no acute distress Heart: normal S1S2, no murmurs, rubs, gallops Lungs: equal and symmetric respiratory effort, lungs clear to auscultation without wheezes, rales, rhonchi Abdomen: soft, non-distended, bowel sounds normoactive, no tenderness, rebound, guarding, rigidity SCRIPT READER: Patient refuses??SCRIPT READER exam Assessment/Plan 1.??Dysuria??R30.0 Patient presenting with complaints of dysuria, urgency, frequency.?? Her urine dip today shows no leukocytes, nitrates, blood. ??We will send for a culture and sensitivity.?? I will send a prescription for fosfomycin in the event that her culture returns positive. ??She should not take the antibiotic if??negative.?? I strongly encourage that we perform a pelvic exam today however patient refuses.? ? She opted to perform a selfie swab??to screen for vaginitis panel.?? These results returned negative.?? Explained to patient that??examination of the area that??she feels like is a??cut??would be helpful in better identifying the cause of her symptoms.?? She again declines.?? I encouraged that she follow-up with PCP If symptoms are not improving. Ordered: fosfomycin 3 g oral granule for reconstitution, 3 g = 1 EA, Oral, Once, # 1 packets, 0 Refill(s), Pharmacy: [facility] #[id number], 162.56, cm, 04/12/23 8:47:00 EST, Height, 41.73, kg, 04/22/23 17:44:00 EDT, Weight Dosing fosfomycin 3 g oral granule for reconstitution, 3 g = 1 EA, Oral, Once, # 1 packets, 0 Refill(s), [facility]acy: [facility] #[id number], 162.56, cm, 04/12/23 8:47:00 EST, Height, 41.73, kg, 04/22/23 17:44:00 EDT, Weight Dosing Urine Culture, Urine, Clean Catch, Routine collect, RT - Routine, 04/22/23 18:20:00 EDT, Once, Lab Collect, Collected, by LHRPLOOF, Micro Spec, Dysuria, Print Label, Not Required ?? Orders: fosfomycin 3 g oral granule for reconstitution, 3 g = 1 EA, Oral, Once, # 1 packets, 0 Refill(s), Pharmacy: [facility] #[id number], 162.56, cm, 04/12/23 8:47:00 EST, Height, 41.73, kg, 04/22/23 17:44:00EDT, Weight Dosing Problem List/Past Medical History Ongoing [...] Date/Time Method of Collect POC clean catch 04/22/2023 17:48 EDT Glucose, Urine POC Negative 04/22/2023 17:48 EDT Bilirubin, Urine POC Negative 04/22/2023 17:48 EDT Ketones, Urine POC Negative 04/22/2023 17:48 EDT Specific Sullivan, Ur POC 1.025 04/22/2023 17:48 EDT pH, Urine POC 7.50 04/22/2023 17:48 EDT Protein, Urine POC Negative 04/22/2023 17:48 EDT Urobilinogen, Urine POC 0.2 04/22/2023 17:48 EDT Nitrite, Urine POC Negative 04/22/2023 17:48 EDT Blood, Urine POC Negative 04/22/2023 17:48 EDT Leuk Esterase, Urine POC Negative 04/22/2023 17:48 EDT Electronically Signed on 04/23/23 08:20 AM Hiwot Pelaez PA-C Patient Care team information Care Team Personnel Name: MELVA WATTS APRN Position: No Access Member Role: Primary Care Physician Address: Address: [address] [id number] Name: Krystal Kurtz APRN Position: Physician Member Role: Nurse Practitioner Address: Address: [address] [place] [address] [address] [place], [place] [address] Care Team Related Persons Name: FAIZA BALBUENA Name: ALVARO BALBUENA Address: [address] [place], [place] [id number] Name: CAROLINA BALBUENA Address: [facility]
--- OUTSIDE RECORDS SUMMARY | 2024-02-03 12:36 | XMS_ITS | Encounter Summary ---
Author Organization [facility] Address [address] [place] [address] Care Team Providers Care Vamp Seamer Name Role Phone Unavailable Primary Care Provider Unavailabl e Encounter Details Date Type Department Care Team (Late st Contact Info) Description 10/01/2021 Lab Requisition [facility] Pathology & Laboratory Medicine - [facility] [address] [place] [address] Outr Resulting Lab, Provider Social History Tobacco [...] Procedure Name Priority Date/Time Associated Diagnosis Comments ZZCOVID-19 TEST [facility] PCR Today 10/01/2021 22:22 EDT COVID-19 TESTING Routine 10/01/2021 22:2 2 EDT documented in this encounter Results * COVID-19 TEST [facility] PCR (10/01/2021 22:22 EDT) Swab 10/01/2021 22:2 2 EDT 10/02/2021 16:46 EDT us Provider Outr Resulting Lab MICROBIOLOGY - GENER AL ORDERABLES Final Result [facility] [address] [place] [address] * COVID-19 TESTING (10/01/2021 22:22 EDT) COVID-19 rt-PCR Result Negative Negative 10/03/2021 14:23 EDT [facility] Comment: This test has not been FDA cleared or approved. This test has been authorized by FDA under an EUA for use by authorized laboratories. This test has been authorized only for detection of nucleic acid from 2019-nCoV, not for any other viruses or pathogens. This test is only authorized for the duration of the declaration that circumstances exist justifying the authorization of emergency use of in vitro diagnostic tests for detection and/or diagnosis of 2019-nCoV under section 564(b)(1) of Act, 21 U.S.C ?? 360bbb-3(b) (1), unless the authorization is terminated or revoked sooner. Negative results do not preclude 2019-nCoV infection and should not be used as the sole basis for treatment or other patient management decisions. Negative results must be combined with clinical observations, patient history, and epidemiological information. Testing was performed using the sunshine SARS-CoV-2 assay ([employer] on the Sunshine 6800 System Performing Lab Sunshine 6800 [facility] 10/03/2021 14:23 EDT [facility] Swab 10/01/2021 22:2 2 EDT 10/02/2021 16:46 EDT us Provider Outr Resulting Lab MICROBIOLOGY - GENER AL ORDERABLES Final Result [facility] [address] [place] [address] documented in this encounter Visit Diagnoses Not on filedocumented in this encounter
--- OUTSIDE RECORDS SUMMARY | 2024-02-03 12:36 | XMS_ITS | Encounter Summary ---
Author Organization [facility] Address [address] [place] [address] Care Team Providers Care Mud Worker Name Role Phone Unavailable Primary Care Provider Unavailabl e Encounter Details Date Type Department Care Team (Late st Contact Info) Description 10/15/2021 Lab Requisition [facility] Pathology & Laboratory Medicine - [facility] [address] [place] [address] Outr Resulting Lab, Provider Social History Tobacco [...] Comments CHLAMYDIA/N. GONORRHOEAE AMPLIFIED NUCLEIC ACID Routine 10/14/2021 21:25 EDT documented in this encounter Results * CHLAMYDIA/N. GONORRHOEAE AMPLIFIED RNA (10/14/2021 21:25 EDT) Neisseria gonorrhoeae Result Negative Negative 10/17/2021 15:34 EDT [facility] Chlamydia trachomatis Result Negative Negative 10/17/2021 15:34 EDT [facility] Swab ENTIRE WALL OF CERVIX / Unknown 10/14/2021 21:25 EDT 10/16/2021 16:48 EDT us Provider Outr Resulting Lab MICROBIOLOGY - GENER AL ORDERABLES Final Result [facility] [address] [place] [address] documented in this encounter Visit Diagnoses Not on filedocumented in this encounter
--- OUTSIDE RECORDS SUMMARY | 2024-02-03 12:36 | XMS_ITS | Encounter Summary ---
Author Organization [facility] [place] [address] Care Team Providers Care Field Nurse Name Role Phone Krystal Kurtz APRN Primary Care Provider [phone] Encounter Details Date Type Department Care Team (Latest Contact Info) Description 12/31/2021 Travel Social History Tobacco Use Types Packs/Day Years Used Date Smoking Tobacco: Never Smokeless Tobacco: Never Sex and Gender Information Value Date Recorded Sex Assigned at Not on file Gender Identity Not on file Sexual Orientation Not on file documented as of this encounter Plan of Treatment Not on file documented as of this encounter Visit Diagnoses Not on filedocumented in this encounter Care Teams Field Nurse Relationship Specialty Start Date End Date Krystal Kurtz APRN PCP - General Family Medicine 09/23/21 01/22/24 documented as of this encounter
--- OUTSIDE RECORDS SUMMARY | 2024-02-03 12:36 | XMS_ITS | Encounter Summary ---
Author Organization [facility] [place] [address] Care Team Providers Care [employer] Name Role Phone Krystal Kurtz APRN Primary Care Provider [phone] Encounter Details Date Type Department Care Team (Late st Contact Info) Description 01/07/2022 12:08 PM EST Anesthesia [place] [id number] John Patton MD ApMel [facility] [place] [address] Anesthesia Record Procedure Summary Procedure Name Responsible Anesthesiologist Anesthesia Start Time Anesthesia Stop Time EGD, UPPER GI ENDOSCOPY (WRVU 2.09) (Trunk) John Patton MD Events Date Time Event Comment 01/07/2022 1208 AN Verify 1208 Quick Note Removing start time as not to bill. 1208 An Start Data 1231 an stop data 1241 Quick Note Patient refused to proceed with procedure - aborted 1241 Procedure Not Performed 1405 Meds Name Total Dexmedetomidine 12 mcg * Agents Name O2 Air N2O * Blood No blood administrations on file. Lines, Drains, and Airways Type Details Placement Removal (RETIRED) Peripheral IV Line - Single Lumen 01/07/22; 1040; median cubital vein (antecubital fossa), right; 22 gauge; ramiro nesbitt rn; distraction, tolerated well, appears comfortable 01/07/22 1040 by Sharon Vo RN documented in this encounter Social History Tobacco Use Types Packs/Day Years [...] on file documented as of this encounter OR Notes * Anesthesia Postprocedure Evaluation - John Patton MD - 01/07/2022 2:05 PM EST Department of Anesthesiology Post-procedure Note Patient: Marilu Dee Procedure Summary Date: 01/07/22 Room / Location: [facility] END[facility] 6 / [facility]COPY Anesthesia Start: 1208 Anesthesia Stop: 1242 Procedures: EGD, UPPER GI ENDOSCOPY (Trunk) PEDIATRIC COLONOSCOPY Diagnosis: Chronic abdominal pain (Weight loss, chronic abdominal pain, intermittent rectal bleeding and PPI refractory reflux) Surgeons: Jayna Coats DO Responsible Provider: John Patton MD Anesthesia Type: MAC ASA Status: 2 All Anesthesia Providers: Anesthesiologist: John Patton MD MONITOR WORKER: Mel De Souza CRNA Vitals Value Taken Time BP Temp Pulse Resp SpO2 Pain Level Patient Location: Level of Consciousness: Pain Management: PONV: Cardiovascular Status: Respiratory Status: Postoperative Fluid Status: Possible Anesthetic Complications: Final Primary Anesthesia Type: Comments: Procedure not started due to patient wishes * Anesthesia Preprocedure Evaluation - John Patton MD - 01/07/2022 10:16 AM EST Pre-Anesthesia Evaluation for: Marilu lujan 16 y.o. female. Procedure(s): EGD, UPPER GI ENDOSCOPY PEDIATRIC COLONOSCOPY Patient Active Problem List Diagnosis Date Noted ??? Anxiety 12/31/2021 ??? Encounter for surveillance of injectable contraceptive 12/31/2021 ??? Loss of appetite 12/31/2021 ??? Major depression, single episode 12/31/2021 ??? Epigastric pain 10/15/2019 ??? Nausea 10/15/2019 Past Medical History: Diagnosis Date ??? Anxiety ??? Depression ??? GERD (gastroesophageal reflux disease) No past surgical history on file. Social History Tobacco Use ??? Smoking status: Never ??? Smokeless tobacco: Never Substance Use Topics ??? Alcohol use: Not on file Social History Substance and Sexual Activity Drug Use Not on file Allergies Allergen Reactions ??? Penicillins Rash Medications: MAR and/or home medications have been reviewed. Physical Exam: Preprocedure Vitals Current as of 01/07/22 1016 No BP, pulse, respiration, SpO2, or temperature recorded. Height: 162.3 cm (5' 3.9) (12/31/21) Weight: 38.1 kg (84 lb) (12/31/21) BMI: 14.46 IBW: 49.3 kg (108 lb 10.2 oz) Airway Assessment: Mallampati: II Cardiovascular Assessment: system normal Pulmonary Assessment: unlabored breathing Dental Assessment: Misc Assessment: IV access: Peripheral line Last Filed Perioperative Cognitive Screening None Anesthesia Plan: ASA 2 MAC, with a(n) intravenous induction Weight loss, chronic abdominal pain, intermittent rectal bleeding and PPI refractory reflux BMI 14 Once in procedure room, Marilu refused to proceed with procedure - aborted Sedation benefits and risks discussed with patient, all questions answered. Reviewed the differences between general anesthesia and sedation, included the fact that awareness and recall is normal and to be expected with sedation. Patient acknowledged these differences and verbalized understanding. Discussed that no outcomes can be guaranteed. Explained that anesthesia at [facility] is commonly delivered in a team care model fashion, with either resident or CRNAs supervised by an anesthesiologist, who frequently supervises one or more other anesthesia deliveries, provide care. -- John Patton MD, MS Informed Consent: Anesthetic plan and risks discussed with patient and father. Plan discussed with MONITOR WORKER. Anesthesia Screening documented in this encounter Plan of Treatment Not on file documented as of this encounter Visit Diagnoses Not on filedocumented in this encounter Administered Medications Inactive Administered Medications - up to 3 most recent administrations Medication Order MAR Action Action Date Dose Rate Site dexmedeTOMIDine (Precedex) (4 mcg/mL) bolus injection (Anesthsia) Intravenous, PRN, Starting on Fri01/07/22 at 1214, Until 11/28/22 at 1404, Anesthesia Intra-op, Routine Given 01/07/2022 12:14 PM EST 12 mcg documented in this encounter Care Teams [employer] Relationship Specialty Start Date End Date Krystal Kurtz APRN PCP - General Family Medicine 09/23/21 01/22/24 documented as of this encounter
--- OUTSIDE RECORDS SUMMARY | 2024-02-03 12:36 | XMS_ITS | Clinical Summary ---
Author Organization [facility] Address [address] [facility] [place] [address] Care Team Providers Care Sales Associate Cashier Name Role Phone Reinier Kenney Primary Care Provider + Allergies Active Allergy Reactions Criticality Noted Date Comments Penicillins Rash Medium 12/31/2021 Medications Medication Sig Dispensed Refills Start Date End Date Status hyoscyamine SL (Levsin SL) 0.125 mg Tablet, Sublingual PLACE 1 TABLET UNDER THE TONGUE FOUR TIMES A DAY NEEDED FOR DYSPNEA 11/17/2021 Active busPIRone (Buspar) 5 mg Tablet TAKE ONE TABLET BY MOUTH EVERY MORNING, 1 TABLET IN THE AFTERNOON, AND TAKE TWO TABLETS BY MOUTH AT BEDTIME 12/17/2021 Active ondansetron ODT (Zofran-ODT) 4 mg Tablet, Rapid Dissolve DISSOLVE ONE TABLET ON TONGUE EVERY 8 HOURS NEEDED FOR NAUSEA 12/17/2021 Active polyethylene glycoL (Miralax) 17 gram Powder in Packet DISSOLVE 1 PACKET IN WATER & DRINK ONCE DAILY NEEDED FOR CONSTIPATION 10/09/2021 Active medroxyPROGESTERone (Depo-PROVERA) 150 mg/mL Syringe INJECT 1ML INTRAMUSCULAR EVERY 12 WEEKS 10/17/2021 Active Active Problems Problem Noted Date Diagnosed Date Dysmenorrhea 06/20/2023 Dyspareunia, female 06/20/2023 Menorrhagia with regular cycle 06/20/2023 Anxiety 12/31/2021 Encounter for surveillance of injectable contrac eptive 12/31/2021 Loss of appetite 12/31/2021 Major depression, single episode 12/31/2021 Epigastric pain 10/15/2019 Nausea 10/15/2019 Encounters Date Type Department Care Team Description 01/26/2024 7:00 PM EST Ext Surgery or Single Event [facility] [address] [place] [address] Gopi Harkins MD Palpitations from Last 3 Months Family History Medical History Relation Comments Thyroid Disease Mother Autoimmune Disorder Neg Hx Celiac Disease Neg Hx Crohn Disease Neg Hx GERD Neg Hx Gallbladder Disease Neg Hx Irritable Bowel Syndrome Neg Hx Liver Disease Neg Hx Pancreatitis Neg Hx Peptic Ulcer Disease Neg Hx Ulcerative Colitis Neg Hx Relation Status Comments Mother Social History Tobacco Use Types Packs/Day Years [...] on file Sexual Orientation Not on file Last Filed Vital Signs Vital Sign Reading Time Taken Comments Blood Pressure 111/70 01/07/2022 10:35 AM EST Pulse 110 01/07/2022 10:35 AM EST Temperature 36.8 ??C (98.2 ??F) 01/07/2022 10:[address] Respiratory Rate 18 12/31/2021 12:59 PM EST Oxygen Saturation 100% 01/07/2022 10:35 AM EST Inhaled Oxygen Concentration - - Weight 38.1 kg (84 lb) 01/07/2022 10:35 AM EST Height 162.6 cm (5' 4) 01/07/2022 10:35 AM EST Body Mass Index 14.42 01/07/2022 10:35 AM EST Plan of Treatment Health Maintenance Due Date Last Done Comments Chlamydia Screening 01/09/2019 HPV vaccine (1 - 3-dose series) 01/09/2019 HIV screen 01/09/2022 Hepatitis C Screening 01/09/2022 Hepatitis B vaccine (0-59 yrs) (1) 01/09/2023 Tetanus/Diphtheria/Pertussis Vaccines (1 - Tdap) 01/09 Covid-19 Vaccine (1 - season) 2023 Influenza (Flu) vaccine (1 o f 1 - Influenza standard series) 10/12/2023 Procedures Procedure Name Priority Date/Time Associated Diagnosis Comments FINANCIAL COACH SCAN 01/26/2024 12:00 AM EST from Last 3 Months Results * Scan Doc: Spot Remover (01/26/2024 12:00 AM EST) Anatomical Region Laterality Modality Other Narrative 01/26/2024 12:00 AM EST Ordered by an unspecified provider. Scanning Provider MEDIA MGR SCAN EXT O RDR/RSLT from Last 3 Months Care Teams Sales Associate Cashier Relationship Specialty Start Date End Date Reinier Kenney PA [address] [facility] [place] [address] PCP - General Internal Medicine 01/23/24
--- OUTSIDE RECORDS SUMMARY | 2024-02-03 12:36 | XMS_ITS | Continuity of Care Document ---
Author Organization [facility] Address [address] [place] [address] Care Team Providers Care Reconciliation Clerk Name Role Phone MELVA WATTS APRN Primary Care Physician Encounter [facility] NBR [id number] Date(s): 09/05/23 - 09/05/23 [facility] [address] [place] [address]- Encounter Diagnosis Pharyngitis(Discharge Diagnosis) - 09/05/23 Discharge Disposition: Home or Self Care Attending [...] Unit: Unknown 14Result Comment: Unit: Unknown Medications cefdinir 250 mg/5 mL oral liquid 300 mg = 6 mL, Oral, every 12 hr, X 10 days, # 120 mL, 0 Refill(s), 09/15/23 12:40:00 PM CDT, Pharmacy: [facility] #[id number], 162.5, cm, 09/04/23 10:32:00 EDT, Height, 42.6, kg, 09/05/23 13:05:00 EDT, Weight Dosing Start Date: 09/05/23 Stop Date: 09/15/23 Status: Ordered Depo-Provera Contraceptive 150 mg/mL intramuscular suspension 1 Unknown, 0 Refill(s) Start Date: 11/29/21 Status: Ordered ondansetron 4 mg oral tablet, disintegrating 4 mg = 1 tab, Oral, TID, # 10 tab, 0 Refill(s), [facility]: [id number], 162, cm, 02/25/23 11:58:00 EST, Height, 40.8, kg, 02/25/23 12:04:00 EST, Weight Dosing Start Date: 02/25/23 Status: Ordered prednisoLONE 15 mg/5 mL oral syrup 45 mg = 15 mL, Oral, Daily, X 5 days, # 75 mL, 0 Refill(s), 09/10/23 12:41:00 PM CDT, Pharmacy: [facility] #[id number], 162.5, cm, 09/04/23 10:32:00 EDT, Height, 42.6, kg, 09/05/23 13:05:00 EDT, Weight Dosing Start Date: 09/05/23 Stop Date: 09/10/23 Status: Ordered Mental Status 09/05/23 Eye Opening Response Codorus Spontaneous ly Best Verbal Response Codorus Oriented Best Motor Response Belkis Obeys comman ds Codorus Coma Score 15 Problem List Condition Confirmation [...] Temperature Temporal Artery [36-38 Deg C ] 37.4 Deg C (09/05/23 1:02 PM) Peripheral Pulse Rate [60-100 bpm] 80 bp m (09/05/23 1:02 PM) Respiratory Rate [12-24 br/min] 16 br/mi n (09/05/23 1:02 PM) Blood Pressure [90-140/60-90 mmHg] 117/6 6mmHg (09/05/23 1:02 PM) Mean Arterial Pressure, Cuff [65-140 mmH g] 83 mmHg (09/05/23 1:02 PM) Weight 42.6 kg (09/05/23 1:02 PM) Weight Dosing 42.600 kg (09/05/23 1:02 PM) Weight Percentile 0.83 1 (09/05/23 1:02 PM) 1Result Comment: ^~:!Percentile Source -[facility] [place] Social History Social History Type Response Tobacco Never tobacco user, smokeless tobacco daily Tobacco Use:. Sex Female Hospital Discharge Instructions Patient Education 09/05/2023 12:45:23 Pharyngitis Pharyngitis Pharyngitis is inflammation of the [...] these instructions at home: Medicines ??? Take bqbf-brn-vwujlec and prescription medicines only as told by [...] and water are not available, use hand export specialist. ??? Do not touch your eyes, nose, [...] provider. Document Revised: 04/25/2021 Document Reviewed: 04/25/2021 [employer] Patient Education ?? 2022 [employer]. Follow Up Care 09/05/2023 12:57:58 With:Alphonso Phan DO Address: [address] [place] [id number] When:1 month Emergency department Discharge instructions * KEREN Webber: PERFORM Event Display: ED Discharge Information Authored Date: [id number] JOSE ROBERTO BALBUENA :2005 Age:18 years Sex:Female Visit Date:09/05/2023 Primary Care Physician: MELVA WATTS APRN Discharge Instructions We would like to thank you for allowing us to assist you with your healthcare needs. The following includes patient education materials and information regarding your injury/illness. Diagnosis from Today's Visit Pharyngitis Discharge Vitals Temperature??(Temporal Artery) 99.3 ??F (37.4 ??C) Heart Rate??(Peripheral) 80 Respiratory Rate?? 16 Blood Pressure?? 117/66?? SpO2?? 100% Weight?? 93.93 lb (42.6 kg) Allergies No Known Allergies No Known Medication Allergies What to Do Next Instructions from Your Care Team Take medication as prescribed If you have any new or worsening conditions return for reevaluation Follow-up with??ENT??to both either get on the cancellation list or have a appointment sooner than October??due to the recurrence of this issue. You Need to Schedule the Following Appointments Follow Up with??Alphonso Phan, DO When:??Within 1 month Where: [address] [place] [address] Upcoming Scheduled Appointments Friday 9:30 AM EDT ?? With: KEREN Mcclain Where: [facility] Otolaryngology Status: Confirmed You were treated today on [...] Much When Why Instructions Next Dose New cefdinir (cefdinir 250 mg/ 5 mL oral liquid) 6 Milliliters Oral (given by mouth) Every 12 hours Duration: 10 Days Pickup at [facility] #[id number] New prednisoLONE (prednisoLONE 15 mg/ 5 mL oral syrup) 15 Milliliters Oral (given by mouth) Every day Duration: 5 Days Pickup at [facility] #[id number] Unchanged medroxyPROGESTERone (Depo-Provera Contraceptive 150 mg/ mL intramuscular suspension) 1 Unknown ?? Unchanged ondansetron (ondansetron 4 mg oral tablet, disintegrating) 1 tab Oral (given by mouth) 3 times a day Influenza-like illness [id number] [address], [place] [id number] [phone] Education Materials Pharyngitis Pharyngitis is inflammation of [...] these instructions at home: Medicines ? Take htiw-pdh-hhokanm and prescription medicines only as told by [...] and water are not available, use hand export specialist. ? Do not touch your eyes, nose, [...] provider. Document Revised: 04/25/2021 Document Reviewed: 04/25/2021 Elsevier Patient Education ?? 2022 [employer] ([employer] Patient/Senior Net C Developer Signature Patient Name:JOSE ROBERTO BALBUENA I have received this information and my questions have been answered. Patient/Senior Net C Developer Name: Patient/Senior Net C Developer Signature: Relationship to Patient: Witness Name/Signature: Date: Electronically Signed on: 09/05/2023 13:46 EDTSigned by:AB Patient Care team information Care Team Personnel Name: MELVA WATTS APRN Position: No Access Member Role: Primary Care Physician Address: Address: [facility] [address] [place] [address]- [place] Name: Krystal Kurtz APRN Position: Physician Member Role: Nurse Practitioner Address: Address: [address] [place] [address] Care Team Related Persons Name: FAIZA BALBUENA
--- OUTSIDE RECORDS SUMMARY | 2024-02-03 12:36 | XMS_ITS | Encounter Summary ---
Author Organization [facility] Address [facility] [place] [address] Care Team Providers Care Electro Mechanical Assembler Name Role Phone Krystal Kurtz APRN Primary Care Provider Reason for Referral * Consultation (Routine) - Closed Specialty Diagnoses / Procedures Referred By Contact Referred To Contact Pediatric Gastroenterology Diagnoses Weight loss Chronic abdominal pain Anxiety Cait Alexandre APRN [facility] [place] [address] Liset Higgins, PhD [facility] [place] [address] Referral ID Status Reason Start Date Expiration Date V isits Requested Visits Authorized [id number] Closed Specialty Service Requested 2022 2023 1 1 Encounter Details Date Type Department Care Team (Late st Contact Info) Description 2022 Telephone [place] [address] Cait Alexandre APRN [facility] [place] [address] Social History Tobacco Use Types Packs/Day Years [...] as of this encounter Miscellaneous Notes * Addendum Note - Cait Alexandre APRN - 2022 3:24 PM ESTAddended by: CAIT ALEXANDRE on: 2022 03:24 PM Modules accepted: Orders * Telephone Encounter - Cait Alexandre APRN - 2022 10:10 AM EST Spoke to Marilu to inform her that we will not be re-booking her procedure at this time without additional follow up and advised her of non-invasive measures we can do to investigate further includinglabs and stool sample (stool kit was given at previous visit). Encouraged her to make appointments with RD and Clinical psychologist along with a follow up with me. Attempted to transfer call to ward secretary to help her with scheduling-however call did not go throughand then call was dropped. Attempted to call Marilu back twice- but unable to get call to go through.Sent message and spoke with ward secretary in person to call Marilu back to help get these appointments scheduled. * Telephone Encounter - Cait Alexandre APRN - 2022 10:10 AM EST ----- Message from Varsha Rios sent at 01/09/2022 3:12 PM EST ----- Regarding: please call- not re-booking Can you please call patient and explain to her why we are not re-booking her for a procedure. She called today and asked for this to be rescheduled soon. Her call back number is [phone] documented in this encounter Plan of Treatment Scheduled Referrals Name Type Priority Associated Diagnoses Order Schedule Referral to Pediatric Gastroenterology Outpatient Referral Routine Weight loss Chronic abdominal pain Anxiety Ordered: 2022 documented as of this encounter Visit Diagnoses Diagnosis Weight loss Loss of weight Chronic abdominal pain Abdominal pain, unspecified site Anxiety Anxiety state, unspecified documented in this encounter Care Teams Electro Mechanical Assembler Relationship Specialty Start Date End Date Krystal Kurtz APRN PCP - General Family Medicine 09/23/21 01/22/24 documented as of this encounter
--- OUTSIDE RECORDS SUMMARY | 2024-02-03 12:36 | XMS_ITS | Continuity of Care Document ---
Author Organization [facility] Address [address] [place] [id number] Care Team Providers Care Rotoformer Backtender Name Role Phone JAMES ELIZABETH Primary Care Physician Encounter [facility] FIN NBR [id number] Date(s): 12/01/23 - 12/01/[address] [address]- [place] Encounter Diagnosis Pelvic pain(Discharge Diagnosis) - 12/01/23 Discharge Disposition: Home or Self Care Attending Physician: Lokesh Solorio MD Admitting Physician: Lokesh Solorio MD Allergies, Adverse Reactions, Alerts Substance Criticality Severity Reaction Reaction Severity Status penicillin High criticality Moderate Rash Ac tive Assessment and Plan Extracted from: Title:ED Provider Note Author:Shayne Webber Date:12/01/23 Assessment/Plan 1.??Pelvic pain??R10.2 ??At this time I do not feel the patient is critical and I do not feel that we need to involve LEGEND MAKER for further examination. ??She can follow-up with??them for evaluation to determine any??other interventions. ??If her pain continues the next that would be to CT evaluation of her abdomen pelvis??and a detailed vaginal exam. Patient understands the risks and benefits of holding these examinations at this time and agrees with discharge. Orders: Discharge Patient, 12/01/23 20:49:00 EDT, Home Independently Patient Education Pelvic Pain, Female Follow Up With When Contact Information KEREN Webber [address] [place] [address] ?? Additional Instructions: Your evaluation in the emergency department today??was performed by above SURYA. We will contact you with the results of your??labs as soon as they come available ?? Future Scheduled Tests Laboratory* Urine Culture [...] TID, # 10 tab, 0 Refill(s), Pharmacy: [facility] #[id number], 162, cm, 02/25/23 11:58:00 EST, Height, 40.8, kg, 02/25/23 12:04:00 EST, Weight Dosing Start Date: 02/25/23 Status: Ordered Mental Status 12/01/23 Eye Opening Response Belkis Spontaneous ly Best [...] Xpress MVP (GeneXpert) (Vaginitis PCR Pa adam) 12/01/23 Chlamydia trachomatis and Neisseria gono rrhoeae (GeneXpert) 12/01/23 Test Urine Qual 12/01/23 Urinalysis with Micro if Indicated and C ulture if Indicated 12/01/23 Most recent to oldest [Reference Range]: 1 UA Color [Yellow] Yellow (12/01/23 7:49 PM) UA Urobilinogen [0.2] 1.0 *ABN* (12/01/23 7:49 PM) UA Bili [Negative] Negative (12/01/23 7:49 PM) UA Ketones [Negative] Trace *ABN* (12/01/23 7:49 PM) UA Leuk Est [Negative] Negative (12/01/23 7:49 PM) UA Nitrite [Negative] Negative (12/01/23 7:49 PM) UA Glucose [Negative] Negative (12/01/23 7:49 PM) UA Protein [Negative] Negative (12/01/23 7:49 PM) UA Blood [Negative] Negative (12/01/23 7:49 PM) UA Spec Grav [1.001-1.030] 1.025 (12/01/23 7:49 PM) UA pH [5.00-9.00] 7.00 (12/01/23 7:49 PM) UA Appear [Clear] Clear (12/01/23 7:49 PM) Urine Srce Clean Catch (12/01/23 7:49 PM) Chlamydia trachomatis DNA -GeneXpert [No t Detected] Not Detected (12/01/23 7:49 PM) Neisseria gonorrhoeae DNA -GeneXpert [No t Detected] Not Detected (12/01/23 7:49 PM) U hCG Ql [Negative] Negative (12/01/23 7:49 PM) Bacterial Vaginosis MVP (GeneXpert) [Neg ative] Negative (12/01/23 8:37 PM) Elvira glab-krus MVP (GeneXpert) [Not D etected] Not Detected (12/01/23 8:37 PM) Elvira group MVP (GeneXpert) [Not Detec khari] Not Detected (12/01/23 8:37 PM) Trichomonas vaginalis MVP (GeneXpert) [N ot Detected] Not Detected (12/01/23 8:37 PM) Vital Signs Most recent to oldest [Reference Range]: 1 Temperature Temporal Artery [36-38 Deg C ] 36.8 Deg C (12/01/23 7:40 PM) Heart Rate Monitored [60-100 bpm] 109 bp m *HI* (12/01/23 7:40 PM) Blood Pressure [90-120/60-80 mmHg] 115/6 5mmHg (12/01/23 7:40 PM) Mean Arterial Pressure, Cuff [65-140 mmH g] 82 mmHg (12/01/23 7:40 PM) Weight 42 kg (12/01/23 7:40 PM) Weight Dosing 42.000 kg (12/01/23 7:40 PM) Height 162 cm (12/01/23 7:40 PM) Body Mass Index 16 kg/m2 (12/01/23 7:40 PM) Height/Length Percentile 41.87 1 (12/01/23 7:40 PM) Weight Percentile 0.56 2 (12/01/23 7:40 PM) 1Result Comment: ^~:!Percentile Source -CDC 2Result Comment: ^~:!Percentile Source -[facility] Social History Social History Type Response Tobacco Never tobacco user, smokeless tobacco daily Tobacco Use:. Sex Female Sex Representation Female (finding) Hospital Discharge Instructions Patient Education 12/01/2023 19:50:01 Pelvic Pain, Female Pelvic Pain, Female Pelvic [...] Follow these instructions at home: ??? Take pfua-nmc-wlmivlg and prescription medicines only as told by [...] provider. Document Revised: 06/05/2021 Document Reviewed: 06/05/2021 ElseIncentive Targeting Patient Education ?? 2022 [employer]. Follow Up Care 12/01/2023 19:33:10 With:KEREN Webber Address: [address] [place] [phone] When: Unknown Comments:Your evaluation in the emergency department today??was performed by jessy LONDON.We will contact you with the results of your??labs as soon as they come available Physician Emergency department Note * KEREN Webber: PERFORM Event Display: ED Note Physician Authored Date: [id number] JOSE ROBERTO BALBUENA :2005 Age:18 years Sex:Female Visit Date:12/01/2023 Primary Care Physician: JAMES ELIZABETH Basic Information Time Seen: KEREN Webber / 12/01/2023 19:45 Chief Complaint Lower abdominal pain x 2 days, burning upon urination History Of Present Illness: Patient is a 18-year-old female presents emergency department with pelvic pain??that travels into her back. ??She notes that she is having some discharge vaginally??and??pain with urination.?? Patient is attempted to utilize her MetroGel??which she states has not given her any relief over the last 24 hours. Patient has been taking Tylenol which has been helping but has not been clearing her symptoms. ??She is fearful she has a UTI or??a vaginal infection. She has had no fever chills nausea or vomiting denies chance of ??and otherwise feels well Review of Systems: See HPI Physical Exam Vitals & Measurements T:??36.8?C ??(Temporal Artery)?? HR:??109??(Monitored)?? BP:??115/65?? SpO2:??100%?? HT:??41.87??(Percentile)?? HT:??162??cm?? WT:??0.56??(Percentile)?? WT:??42??kg?? BMI:??16?? O2 Therapy:??Room air?? Patient alert oriented age-appropriate well-nourished nontoxic Normocephalic atraumatic Neck supple nontender EOM intact, PERRLA, sclera nonicteric Clear to auscultation bilaterally Regular rate and rhythm no murmurs Abdominal exam reveals normal bowel sounds, negative rebound tenderness, negative psoas sign Vaginal exam deferred Appropriate mood and affect Medical Decision Making: At this time no vaginal exam was performed as patient requests her doing the swab on her own. ??I felt that this was warranted as she has done this in the past.?? Patient is sexually active and therefore GC chlamydia is sent Patient's laboratory evaluation is unremarkable and this is discussed with her via telephone after discharge.?? Patient will be discharged and will follow-up as below. Procedure No Qualifying Data Assessment/Plan 1.??Pelvic pain??R10.2 ??At this time I do not feel the patient is critical and I do not feel that we need to involve LEGEND MAKER for further examination. ??She can follow-up with??them for evaluation to determine any??other interventions. ??If her pain continues the next that would be to CT evaluation of her abdomen pelvis??ousmane detailed vaginal exam. Patient understands the risks and benefits of holding these examinations at this time and agrees with discharge. Orders: Discharge Patient, 12/01/23 20:49:00 EDT, Home Independently Patient Education Pelvic Pain, Female Follow Up With When Contact Information KEREN Webber [address] [place] [address] Additional Instructions: Your evaluation in the emergency department today??was performed by above SURYA. We will contact you with the results of your??labs as soon as they come available Medication Reconciliation Unchanged busPIRone (busPIRone 5 mg oral tablet)TAKE [...] LATEST RESULTS?? HISTORICAL RESULTS?? U hCG Ql?? 12/01/23 19:49?? Negative?? 04/12/23?? Negative? UA Macroscopic?? LATEST RESULTS?? HISTORICAL RESULTS?? Urine Srce?? 12/01/23 19:49?? Clean Catch?? 06/27/23?? Clean Catch?? UA Color?? 12/01/23 19:49?? Yellow?? 06/27/23?? Yellow?? UA Appear?? 12/01/23 19:49?? Clear?? 06/27/23?? Clear?? UA Glucose?? 12/01/23 19:49?? Negative?? 06/27/23?? Negative?? UA Bili?? 12/01/23 19:49?? Negative?? 06/27/23?? Negative?? UA Ketones?? 12/01/23 19:49?? Trace Abnormal?? 06/27/23?? Trace Abnormal?? UA Spec Grav?? 12/01/23 19:49?? 1.025?? 06/27/23?? 1.020?? UA Blood?? 12/01/23 19:49?? Negative?? 06/27/23?? Negative?? UA pH?? 12/01/23 19:49?? 7.00?? 06/27/23?? 7.00?? UA Protein?? 12/01/23 19:49?? Negative?? 06/27/23?? Negative?? UA Urobilinogen?? 12/01/23 19:49?? 1.0 Abnormal?? 06/27/23?? 0.2?? UA Nitrite?? 12/01/23 19:49?? Negative?? 06/27/23?? Negative?? UA Leuk Est?? 12/01/23 19:49?? Negative?? 06/27/23?? Negative? Infectious Disease?? LATEST RESULTS?? HISTORICAL RESULTS?? Chlamydia trachomatis DNA -GeneXpert?? 12/01/23 19:49?? Not Detected?? 06/10/23?? Not Detected?? Neisseria gonorrhoeae DNA -GeneXpert?? 12/01/23 19:49?? Not Detected?? 06/10/23?? Not Detected?? Bacterial Vaginosis MVP (GeneXpert)?? 12/01/23 20:37?? Negative?? 06/27/23?? Negative?? Elvira glab-krus MVP (GeneXpert)?? 12/01/23 20:37?? Not Detected?? 06/27/23?? Not Detected?? Elvira group MVP (GeneXpert)?? 12/01/23 20:37?? Not Detected?? 06/27/23?? Not Detected?? Trichomonas vaginalis MVP (GeneXpert)?? 12/01/23 20:37?? Not Detected?? 06/27/23?? Not Detected? Electronically Signed on 12/01/2023 22:40 EDT KEREN Webber Emergency department Discharge instructions * KEREN Webber: PERFORM Event Display: ED Discharge Information Authored Date: [id number] JOSE ROBERTO BALBUENA :2005 Age:18 years Sex:Female Visit Date:12/01/2023 Primary Care Physician: JOSEFA VELIZ, JAMES MCDERMOTT Discharge Instructions We would like to thank you for allowing us to assist you with your healthcare needs. The following includes patient education materials and information regarding your injury/illness. Diagnosis from Today's Visit Pelvic pain Discharge Vitals Temperature??(Temporal Artery) 98.2 ??F (36.8 ??C) Heart Rate??(Monitored) 109 Blood Pressure?? 115/65?? SpO2?? 100% Height?? 63.78 in (162 cm) Weight?? 92.61 lb (42 kg) BMI?? 16 Allergies penicillin??(Rash) What to Do Next You Need to Schedule the Following Appointments Follow Up with??KEREN Webber Why: Your evaluation in the emergency department today??was performed by jessy LONDON. We will contact you with the results of your??labs as soon as they come available Where: [address] [place] [phone] You were treated today on an [...] Why Instructions Next Dose Unchanged busPIRone (busPIRone 5 mg oral tablet) [...] times a day Influenza-like illness Education Materials Pelvic Pain, Female Pelvic pain [...] Follow these instructions at home: ? Take wosr-znz-cjkjanj and prescription medicines only as told by [...] provider. Document Revised: 06/05/2021 Document Reviewed: 06/05/2021 ElseIncentive Targeting Patient Education ?? 2022 [employer] Tests Performed Lab Test Name Test Result Date/Time U hCG Ql Negative 12/01/2023 19:49 EDT Urine Srce Clean Catch 12/01/2023 19:49 EDT UA Color YELLOW. 12/01/2023 19:49 EDT UA Appear CLEAR. 12/01/2023 19:49 EDT UA Glucose NEGATIVE 12/01/2023 19:49 EDT UA Bili NEGATIVE 12/01/2023 19:49 EDT UA Ketones TRACE 12/01/2023 19:49 EDT UA Spec Grav 1.025 12/01/2023 19:49 EDT UA Blood NEGATIVE 12/01/2023 19:49 EDT UA pH 7.00 12/01/2023 19:49 EDT UA Protein NEGATIVE 12/01/2023 19:49 EDT UA Urobilinogen 1.0 12/01/2023 19:49 EDT UA Nitrite NEGATIVE 12/01/2023 19:49 EDT UA Leuk Est NEGATIVE 12/01/2023 19:49 EDT Patient/Medical Assistant Ob Gyn Signature Patient Name:JOSE ROBERTO BALBUENA I have received this information and my questions have been answered. Patient/Medical Assistant Ob Gyn Name: Patient/Medical Assistant Ob Gyn Signature: Relationship to Patient: Witness Name/Signature: Date: Electronically Signed on: 12/01/2023 20:50 EDTSigned by:AB Patient Care team information Care Team Personnel Name: Krystal Kurtz APRN Position: Physician Member Role: Nurse Practitioner Address: [address] [place] [address] Name: JAMES ELIZABETH Position: No Access Member Role: Primary Care Physician Address: [id number] [place] [address] Care Team Related Persons Name: FAIZA BALBUENA Insurance Providers Guarantor name: JOSE ROBERTO BALBUENA Health Plan Information #: 1 Payer: [place] Member Number: [id number] Policy Number: MAR[place] Health Plan Information #: 2 Payer: [place] Member Number: [id number] Policy Number: [place] Health Plan Information #: 3 Payer: [place] Member Number: [id number] Policy Number: [place]
--- OUTSIDE RECORDS SUMMARY | 2024-02-03 12:36 | XMS_ITS | Encounter Summary ---
Author Organization [facility] Address [facility] [place] [address] Care Team Providers Care Silverware Etcher Name Role Phone Krystal Kurtz APRN Primary Care Provider [phone] Encounter Details Date Type Department Care Team (Late st Contact Info) Description 01/04/2022 Telephone Pediatric [place] [address] Diane Melgar RN Social History Tobacco Use Types Packs/Day Years Used Date Smoking Tobacco: Never Smokeless Tobacco: Never Sex and Gender Information Value Date Recorded Sex Assigned at Not on file Gender Identity Not on file Sexual Orientation Not on file documented as of this encounter Miscellaneous Notes * Telephone Encounter - Diane Melgar RN - 01/04/2022 9:56 AM EST Notified Marilu Dee Of 1010 arrival time on 01/07/22 for EGD/Cranks at 4T. Reviewed preparation and NPO after midnight. Allowed small sip of water/ольга tracy/apple juice until 2 hrs prior to arrival time. Only necessary medications such as seizure meds day of. Denies recent illness. documented in this encounter Plan of Treatment Not on file documented as of this encounter Visit Diagnoses Not on filedocumented in this encounter Care Teams Silverware Etcher Relationship Specialty Start Date End Date Krystal Kurtz APRN PCP - General Family Medicine 09/23/21 01/22/24 documented as of this encounter
--- OUTSIDE RECORDS SUMMARY | 2024-02-03 12:36 | XMS_ITS | Encounter Summary ---
Author Organization [facility] Address [facility] [place] [address] Care Team Providers Care Tv News Director Name Role Phone Reinier Kenney Primary Care Provider + Encounter Details Date Type Department Care Team (Late st Contact Info) Description 01/26/2024 7:00 PM EST Ext Surgery or Single Event [facility] [address] [facility] [place] [address] Gopi Harkins MD [facility] [place] [address] Palpitations Social History Tobacco Use Types Packs/Day Years [...] as of this encounter Progress Notes * Gopi Harkins MD - 01/26/2024 7:00 PM EST Indication: Palpitations Duration of recording - 9h Summary Data Predominant rhythm - sinus rhythm Minimum sinus rate: 65 bpm Maximum sinus rate: 160 bpm Average sinus rate: 97 bpm Supraventricular Beats Very rare atrial premature beats (APC???s) There were 0 runs of SVT There was no atrial fibrillation Ventricular Beats No ventricular premature beats (VPC's) No high grade or sustained ventricular ectopy AV Node No high grade conduction block noted There were 2 symptom-triggered events (diary not included) - These events were correlated with normal sinus rhythm, without nearby arrhythmia nor ectopy Conclusion(s): Predominant rhythm is sinus, with normal range and variation. No significant supraventricular or ventricular ectopy No electrophysiologic basis of reported symptoms is demonstrated Electronically Signed: Gopi Harkins MD, 01/29/2024 4:37 PM documented in this encounter Plan of Treatment Not on file documented as of this encounter Procedures Procedure Name Priority Date/Time Associated Diagnosis Comments CLIENT CONSULTANT SCAN 01/26/2024 12:00 AM EST documented in this encounter Results * Scan Doc: Log Sorter (01/26/2024 12:00 AM EST) Anatomical Region Laterality Modality Other Narrative 01/26/2024 12:00 AM EST Ordered by an unspecified provider. Scanning Provider MEDIA MGR SCAN EXT O RDR/RSLT documented in this encounter Visit Diagnoses Diagnosis Palpitations documented in this encounter Care Teams Tv News Director Relationship Specialty Start Date End Date Reinier [place] [address] [place] [address] PCP - General Internal Medicine 01/23/24 documented as of this encounter
--- OUTSIDE RECORDS SUMMARY | 2024-02-03 12:36 | XMS_ITS | Continuity of Care Document ---
Author Organization [facility] Address [address] [place] [address] Care Team Providers Care Event Marketing Assistant Name Role Phone JOSEFA VELIZ, JAMES MCDERMOTT Primary Care Physician Encounter [facility]TT[facility]_[place] FIN NBR [id number] Date(s): 12/16/23 - 12/16/[address] [address] Discharge Disposition: Home or Self Care Attending Physician: Lokesh Solorio MD Admitting Physician: Lokesh Solorio MD Referring Physician: Lokesh Solorio MD Allergies, Adverse Reactions, [...] # 10 tab, 0 Refill(s), Pharmacy: [facility] #[id number], 162, cm, 02/25/23 11:58:00 EST, Height, 40.8, kg, 02/25/23 12:04:00 EST, Weight Dosing Start Date: 02/25/23 Status: Ordered prochlorperazine 10 mg oral tablet 10 mg = 1 tab, Oral, TID, PRN nausea/vomiting, X 7 days, # 21 tab, 0 Refill(s), 12/22/23 10:33:00 PM SIGNAL WIRER, Pharmacy: [facility] #[id number], 162, cm, 12/15/23 22:27:00 EST, Height, 45, kg, 12/15/23 22:29:00 EST, Weight Dosing Start Date: 12/15/23 Stop Date: 12/22/23 Status: Ordered Problem List Condition Confirmation Course Effective Dates Status H ealth Status Informant Amenorrhea Confirmed Active Anxiety Confirmed Active Decrease in appetite Confirmed Active Epigastric pain Confirmed Active Lipoma of abdominal wall Confirmed Active Loss of taste Confirmed Active Major depression, single episode Confirmed Active Menometrorrhagia Confirmed Active Nausea Confirmed Active Patient encounter status Confirmed Active Tonsillitis Confirmed Active Results Radiology Reports * Exam Date Time Procedure Performing Provider Status 12/16/23 11:32 AM US Pelvic Complete Renae Morse (Verified) Notes: (US Pelvic Complete) Reason For Exam: pelvic pain, vag bleed; hcg neg US Pelvic Complete EXAM DESCRIPTION: US Pelvic Complete 12/16/2023 INDICATION: PELVIC PAIN, VAG BLEED; HCG NEG TECHNIQUE: Transabdominal and transvaginal Grayscale and color Doppler ultrasound examination of the pelvis. COMPARISON: None FINDINGS: The uterus measures 3.2 cm x 7.1 cm x 3.5 cm. No focal uterine lesion identified The endometrial stripe thickness is 1 mm. The left ovary measures 1.6 cm x 3.5 cm x 2.6 cm. The right ovary measures 2.4 cm x 3.1 cm x 2.1 cm. Normal ovarian follicles are noted bilaterally with no suspicious solid or cystic ovarian lesion on either side. Color-flow analysis demonstrated bilateral ovarian blood flow Mild free fluid, likely physiologic. IMPRESSION: Normal pelvic ultrasound. JOB #: [id number] Final Signed by: Kiet Ragsdale MD Signed (Electronic Signature): 12/16/2023 11:40 am Social History Social History Type Response Tobacco Never tobacco user, smokeless tobacco daily Tobacco Use:. Sex Female Sex Representation Female (finding) Patient Care team information Care Team Personnel Name: Krystal Kurtz APRN Position: Physician Member Role: Nurse Practitioner Address: [address] [place] [address] [place] [phone] Name: JAMES ELIZABETH Position: No Access Member Role: Primary Care Physician Address: [address] [address]- Care Team Related Persons Name: FAIZA BALBUENA Insurance Providers Guarantor name: JOSE ROBERTO Sanabria BALBUENA Health Plan Information #: 1 Payer: [place] Member Number: [id number] Policy Number: NA Health Plan Information #: 2 Payer: [place] Member Number: [id number] Policy Number: NA Health Plan Information #: 3 Payer: [place] Member Number: [id number] Policy Number: NA
--- OUTSIDE RECORDS SUMMARY | 2024-02-03 12:36 | XMS_ITS | Encounter Summary ---
Author Organization [facility] [place] [address] Care Team Providers Care Bsw Name Role Phone JerardoKrystal velasquez MIRTA Primary Care Provider [phone] Encounter Details Date Type Department Care Team (Late st Contact Info) Description 01/07/2022 Telephone [place] [id number] Jayna Coats [facility] [place] [address] Social History Tobacco Use Types Packs/Day Years [...] encounter Miscellaneous Notes * Telephone Encounter - Jayna Coats DO - 01/07/2022 1:11 PM EST Patient was consented with dad present by me for procedure without issue. Questions were answered and comfortable to proceed. Subsequently, after entering the procedure room patient began to develop nervousness and anxiety surrounding the start of the procedure. CORNCOB PIPE MANUFACTURING SUPERVISOR administered Precedex to help calm her, became visibly upset after that. I entered the room at that point to join SOPHIE De Souza and Senior Endoscopy Андрей Rg who were trying to comfort Marilu and help her relax. Dr. Patton who was just leaving the endoscopy room said he did not think she wished to proceed. Ms. Rg was consoling her by holding her hand and Ms. De Souza was holding the syringe of Propofol explaining how it works very quickly and that she would be asleep once we started the infusion within a few seconds. Cross Tie Turner, CORNCOB PIPE MANUFACTURING SUPERVISOR and I were speaking calmly to comfort and support her, we did encourage her to proceed given she had done the bowel prep and it would be challenging to start the proc ess over again. She indicated that she may be ok to move forward however then said again that she couldn't. We reviewed several times that it was her decision, but we needed her to make it and make it final. We also made her aware that other patients were waiting. There were no other staff members or providers in the room at this time. Ultimately Marilu chose NOT to move forward with sedation and the procedure was cancelled. At no time was there an attempt for force or hold her down to complete the procedure. She is a teen of sound mind who did not assent to her procedure and thus we cancelled it and did not proceed. Discussed with family option to consider noninvasive testing with labs and stool testing, as well as RD and GI Psychology referrals. Would not recommend to rebook procedure at this time given the events of today. Update to Cait Alexandre APRN her primary GI provider. Jayna Coats DO, FAAP [facility] Pediatric Gastroenterology [address] [place] [address] MCKAYLA G[place]mith [phone] Pager [phone] documented in this encounter Plan of Treatment Not on file documented as of this encounter Visit Diagnoses Not on filedocumented in this encounter Care Teams Bsw Relationship Specialty Start Date End Date Krystal Kurtz APRN PCP - General Family Medicine 09/23/21 01/22/24 documented as of this encounter
--- OUTSIDE RECORDS SUMMARY | 2024-02-03 12:36 | XMS_ITS | Encounter Summary ---
Author Organization [facility] Address [facility] [place] [address] Care Team Providers Care Fence Laborer Name Role Phone Krystal Kurtz APRN Primary Care Provider [phone] Encounter Details Date Type Department Care Team (Late st Contact Info) Description 12/21/2021 Transcribe Orders eDH Incoming Referrals [phone] Barbara Orourke, FOUNDER CEO & PRESIDENT [address] [place], [place] [id number] Social History Tobacco Use Types Packs/Day Years Used Date Smoking Tobacco: Never Assessed Sex and Gender Information Value Date Recorded Sex Assigned at Not on file Gender Identity Not on file Sexual Orientation Not on file documented as of this encounter Plan of Treatment Not on file documented as of this encounter Visit Diagnoses Not on filedocumented in this encounter Care Teams Fence Laborer Relationship Specialty Start Date End Date Krystal Kurtz APRN PCP - General Family Medicine 09/23/21 01/22/24 documented as of this encounter
--- OUTSIDE RECORDS SUMMARY | 2024-02-03 12:36 | XMS_ITS | Encounter Summary ---
Author Organization [facility] [place] [address] Care Team Providers Care Deputy Clerk Name Role Phone Krystal Kurtz APRN Primary Care Provider [phone] Reason for Referral * Consultation (Routine) - Authorized Specialty Diagnoses / Procedures Referred By Contac t Referred To Contact Obstetrics and Gynecology Diagnoses Dysmenorrhea, unspecified HAS TRIED DEPO PROVERA, OCPS, NEXPLANON. DECLINES IUDS. WANTS DISCUSSION ABOUT ENDOMETRIOSIS Barbara Orourke APRN [address] [place] [address] [facility] Copier Repair Technician [address] [place] [address] Referral ID Status Reason Start Date Expiration Date Visits Requested Visits Authorized [id number] Authorized Consult, Test & Treat PCP Updated and/or Approved 04/18/2023 04/17/2024 6 6 Encounter Details Date Type Department Care Team (Latest Contact Info) Description 04/18/2023 Transcribe Orders eDH Incoming Referrals [phone] Barbara Orourke APRN [address] [place], [place] [id number] Dysmenorrhea, unspecified Social History Tobacco Use Types Packs/Day Years [...] Associated Diagnoses Orde r Schedule Referral to Ob-Radio Repair Teacher Outpatient Referral Routine Dysmenorrhea, unspecified Ordered: 04/18/2023 documented as of this encounter Visit Diagnoses Diagnosis Dysmenorrhea, unspecified documented in this encounter Care Teams Deputy Clerk Relationship Specialty Start Date End Date Krystal Kurtz APRN PCP - General Family Medicine 09/23/21 01/22/24 documented as of this encounter
--- OUTSIDE RECORDS SUMMARY | 2024-02-03 12:36 | XMS_ITS | Encounter Summary ---
Author Organization [facility] Address [address] [place] [address] Care Team Providers Care Rabbit Fancier Name Role Phone Unavailable Primary Care Provider Unavailabl e Encounter Details Date Type Department Care Team (Late st Contact Info) Description 09/10/2021 Lab Requisition [facility] Pathology & Laboratory Medicine - [facility] [address] [place] [address] Outr Resulting Lab, Provider Social History Tobacco [...]
--- OUTSIDE RECORDS SUMMARY | 2024-02-03 12:36 | XMS_ITS | Referral Summary ---
Author Organization [facility] Address [address] [place] [address] Care Team Providers Care Software Sales Consultant Name Role Phone Unavailable Primary Care Provider Unavailabl e Social History Tobacco Use Types Packs/Day Years Used Date Smoking Tobacco: Never Assessed Comments Unknown Sex and Gender Information Value Date Recorded Sex Assigned at Not on file Legal Sex Female 3:24 EDT Gender Identity Not on file Sexual Orientation Not on file Plan of Treatment Not on file
--- OUTSIDE RECORDS SUMMARY | 2024-02-03 12:36 | XMS_ITS | Encounter Summary ---
Author Organization [facility] [place] [address] Care Team Providers Care Retail Management Keyholder Name Role Phone JerardoChanelleshashank KIRBY Primary Care Provider [phone] Encounter Details Date Type Department Care Team (Late st Contact Info) Description 01/07/2022 10:54 AM EST - 01/07/2022 11:57 AM EST Surgery [place] [address] [facility] [place] [address] Not Performed EGD, UPPER GI ENDOSCOPY (WRVU 2.09) Social History Tobacco Use Types Packs/Day Years [...] 01/07/2022 10: 35 AM EST Growth Chart: [facility] (Girls, 2- 20 Years) documented in this [...] %ile based on CDC (Girls, 2-20 Years) [id number] data based on Weight recorded on 01/07/2022. 47 %ile based on CDC (Girls, 2-20 Years) [id number] data based on Stature recorded on 01/07/2022. [...] proceed. Jayna Coats DO Pediatric Gastroenterology Pager [phone] documented in this encounter Plan of Treatment Not on file documented as of this encounter Visit Diagnoses Diagnosis Chronic abdominal pain Abdominal pain, unspecified site documented in this encounter Administered Medications Inactive Administered [...] RN) documented in this encounter Care Teams Retail Management Keyholder Relationship Specialty Start Date End Date Krystal Kurtz APRN PCP - General Family Medicine 09/23/21 01/22/24 documented as of this encounter
--- OUTSIDE RECORDS SUMMARY | 2024-02-03 12:36 | XMS_ITS | Encounter Summary ---
Author Organization [facility] Address [address] [place] [address] Care Team Providers Care Photovoltaic Subcontractor Name Role Phone Unavailable Primary Care Provider Unavailabl e Encounter Details Date Type Department Care Team (Late st Contact Info) Description 11/01/2021 Lab Requisition [facility] Pathology & Laboratory Medicine - [facility] [address] [place] [address] Outr Resulting Lab, Provider Social History Tobacco [...] Priority Date/Time Associated Diagnosis Comments ZZCOVID-19 TEST [facility] PCR Today 10/31/2021 22:55 EDT COVID-19 TESTING Routine 10/31/2021 22:5 5 EDT documented in this encounter Results * COVID-19 TEST [facility] PCR (10/31/2021 22:55 EDT) Swab 10/31/2021 22:5 5 EDT 11/01/2021 17:26 EDT us Provider Outr Resulting Lab MICROBIOLOGY - GENER AL ORDERABLES Final Result [facility] [address] [place] [address] * COVID-19 TESTING (10/31/2021 22:55 EDT) COVID-19 rt-PCR Result Negative Negative 11/02/2021 11:29 EDT [facility] Comment: This test has [...] performed using the sunshine SARS-CoV-2 assay ([employer] on the Sunshine 6800 System Performing Lab Sunshine 6800 [facility] 11/02/2021 11:29 EDT [facility] Swab 10/31/2021 22:5 5 EDT 11/01/2021 17:26 EDT us Provider Outr Resulting Lab MICROBIOLOGY - GENER AL ORDERABLES Final Result [facility] [address] [place] [address] documented in this encounter Visit Diagnoses Not on filedocumented in this encounter
--- OUTSIDE RECORDS SUMMARY | 2024-02-03 12:36 | XMS_ITS | Encounter Summary ---
[place] [address] Care Team Providers Care Housing And Residence Life Director Name Role Phone Krystal Kurtz APRN Primary Care Provider [phone] Reason for Referral * Consultation (Routine) - Closed Specialty Diagnoses / Procedures Referred By Contact Referred To Contact Pediatric Gastroenterology Diagnoses Abdominal pain, unspecified abdominal location Unintended weight loss Natividad Barker MD [address] [place] [address] [facility] Pedi Gastro [address] [place] [address] Referral ID Status Reason Start Date Expiration Date V isits Requested Visits Authorized [id number] Closed Consult, Test & Treat PCP Updated and/or Approved 09/25/2021 09/25/2022 6 6 Encounter Details Date Type Department Care Team (Late st Contact Info) Description 09/25/2021 Transcribe Orders eDH Incoming Referrals [phone] Natividad Barker MD [address] [place] [address] Abdominal pain, unspecified abdominal location; Unintended weight loss Social History Tobacco Use Types Packs/Day Years Used Date Smoking Tobacco: Never Assessed Sex and Gender Information Value Date Recorded Sex Assigned at Not on file Gender Identity Not on file Sexual Orientation Not on file documented as of this encounter Plan of Treatment Scheduled Referrals Name Type Priority Associated Diagnoses Order Schedule Referral to Pediatric Gastroenterology Outpatient Referral Routine Abdominal pain, unspecified abdominal location Unintended weight loss Ordered: 09/25/2021 documented as of this encounter Visit Diagnoses Diagnosis Abdominal pain, unspecified abdominal location Unintended weight loss documented in this encounter Care Teams Housing And Residence Life Director Relationship Specialty Start Date End Date Krystal Kurtz APRN PCP - General Family Medicine 09/23/21 01/22/24 documented as of this encounter
--- OUTSIDE RECORDS SUMMARY | 2024-02-03 12:36 | XMS_ITS | Encounter Summary ---
Author Organization [facility] Address [facility] [place] [address] Care Team Providers Care Pathology Supervisor Name Role Phone Krystal Kurtz APRN Primary Care Provider [phone] Encounter Details Date Type Department Care Team (Late st Contact Info) Description 06/25/2023 Telephone [place]stetrics [place] [id number] Krystal Bernardo, RN Social History Tobacco Use Types Packs/Day [...] encounter Miscellaneous Notes * Telephone Encounter - Krystal Bernardo RN - 06/25/2023 2:02 PM EDT RTC to Marilu Dee requesting BV results. Negative BV result from 06/20/23 provided to patient. Marilu denies any further questions or concernsat this time. documented in this encounter Plan of Treatment Not on file documented as of this encounter Visit Diagnoses Not on filedocumented in this encounter Care Teams Pathology Supervisor Relationship Specialty Start Date End Date Krystal Kurtz APRN PCP - General Family Medicine 09/23/21 01/22/24 documented as of this encounter
[2024-02-03 15:24] LABS: Abs Immature Grans 0.01 10^3/uL (0.0-0.06); Absolute Basophil Count 0.03 10^3/uL (0.0-0.2); Absolute Eosinophil Count 0.15 10^3/uL (0.0-0.7); Absolute Lymphocyte Count 1.05 10^3/uL (1.2-3.4); Absolute Monocyte Count 0.34 10^3/uL (0.1-0.8); Absolute Neutrophil Count 1.88 10^3/uL (1.2-6.7); Basophils % 0.9 %; Eosinophils % 4.3 %; HCT 38.2 % (36.0-46.0); HGB 13.1 g/dL (11.2-15.7); Immature Grans % 0.3 %; Lymphocytes % 30.3 %; MCH 29.2 pg (27.0-33.0); MCHC 34.3 % (32.0-36.0); MCV 85 fL (80-95); MPV 11.2 fL (8.0-11.0); Monocytes % 9.8 %; Neutrophils % 54.4 %; Platelet Count 265 10^3/uL (130-400); RBC 4.49 10^6/uL (3.93-5.22); RDW 12.3 % (11.7-14.6); RDW-SD 37.9 fL; WBC 3.46 10^3/uL (4.4-10.8)
[2024-02-03 16:08] LABS: ALT 22 U/L (14-59); AST 16 U/L (15-37); Albumin 4.1 g/dL (3.4-5.0); Alkaline Phosphatase 78 U/L (46-116); BUN 8 mg/dL (7-18); Bilirubin, Total 0.32 mg/dL (0.2-1.0); CREATININE 0.6 mg/dL (0.55-1.02); Calcium 8.9 mg/dL (8.5-10.1); Chloride 108 mmol/L (98-107); FREE T4 1.07 ng/dL (0.76-1.46); Glucose 87 mg/dL (74-106); Potassium 4.2 mmol/L (3.5-5.1); Sodium 141 mmol/L (136-145); TSH 0.63 uIU/mL (0.36-3.74); Total Protein 6.8 g/dL (6.4-8.2)
[2024-02-06 10:23] LABS: HIV-1/2 Ag & Ab Screen Negative (Negative)
== END 2024-02-03 12:33 | disposition home or self-care (01) ==
LOC: NCHCN 12:32
PROVIDERS: PCP Obstetrics & Gynecology Gynecology; Visit Provider Student in an Organized Health Care Education/Training Program
DX: D72.810 Lymphocytopenia (principal); R00.0 Tachycardia, unspecified
CPT/HCPCS: 80053; 87389; 84439; 84443; 85025

== ENCOUNTER 2024-02-17 13:11 | Outpatient (REF) | payer MEDICAID, SELFPAY ==
[2024-02-19 12:11] LABS: Chlamydia Result Negative (Negative); GC Result Negative (Negative)
== END 2024-02-17 13:12 | disposition home or self-care (01) ==
LOC: LBN 13:11
PROVIDERS: PCP Obstetrics & Gynecology Gynecology; Visit Provider Obstetrics & Gynecology
DX: N89.8 Other specified noninflammatory disorders of vagina (principal); R10.2 Pelvic and perineal pain; G89.29 Other chronic pain
CPT/HCPCS: 87491; 87591; 87480; 87510; 87660

== ENCOUNTER 2024-03-05 17:00 | Emergency (ER) | payer MEDICAID, SELFPAY ==
[2024-03-05 17:01] VITALS: BP 126/75; PULSE 112; RESP 14; TEMP 36.2
[2024-03-05] MEDS: Ondansetron 4 MG/2 ML VIAL IVP (17:38)
[2024-03-05 17:40] LABS: Bilirubin Negative (Negative); Blood Negative (Negative); Clarity Clear (Clear); Glucose Negative (Negative); Ketones 40 mg/dL (Negative); Leukocyte Esterase Negative (Negative); Nitrite Negative (Negative); Specific Gravity 1.025 (1.005-1.025); Urobilinogen 0.2 mg/dL (Up to 0.2)
[2024-03-05 17:44] LABS: Abs Immature Grans 0.01 10^3/uL (0.0-0.06); Absolute Basophil Count 0.05 10^3/uL (0.0-0.2); Absolute Eosinophil Count 0.11 10^3/uL (0.0-0.7); Absolute Lymphocyte Count 1.39 10^3/uL (1.2-3.4); Absolute Monocyte Count 0.45 10^3/uL (0.1-0.8); Absolute Neutrophil Count 3.18 10^3/uL (1.2-6.7); Eosinophils % 2.1 %; HCT 40.4 % (36.0-46.0); HGB 13.7 g/dL (11.2-15.7); Immature Grans % 0.2 %; Lymphocytes % 26.8 %; MCHC 33.9 % (32.0-36.0); MCV 86 fL (80-95); MPV 10.5 fL (8.0-11.0); Monocytes % 8.7 %; Neutrophils % 61.2 %; Platelet Count 248 10^3/uL (130-400); RBC 4.72 10^6/uL (3.93-5.22); RDW 11.7 % (11.7-14.6); RDW-SD 36.6 fL; WBC 5.19 10^3/uL (4.4-10.8)
[2024-03-05 18:00] LABS: ALT 19 U/L (14-59); AST 15 U/L (15-37); Albumin 4.6 g/dL (3.4-5.0); Alkaline Phosphatase 78 U/L (46-116); Anion Gap 8.7 mmol/L (3-11); BUN 8 mg/dL (7-18); Bilirubin, Total 0.44 mg/dL (0.2-1.0); C-Reactive Protein < 0.50 mg/dL (<or=0.5); CO2 26.3 mmol/L (21.0-32.0); CREATININE 0.6 mg/dL (0.55-1.02); Calcium 9.2 mg/dL (8.5-10.1); Chloride 105 mmol/L (98-107); Glucose 87 mg/dL (74-106); Potassium 3.6 mmol/L (3.5-5.1); Sodium 140 mmol/L (136-145); Total Protein 7.4 g/dL (6.4-8.2)
--- NOTE | 2024-03-05 18:16 | W.ED.GENAD ---
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 prochlorperazine maleate [Compazine] 5 mg tablet 5 mg PO QID PRN (Reason: nausea and vomiting) Qty: 30 2RF metronidazole 0.75 % (37.5mg/5 gram) gel 1 appful vaginal BID 5 Days Qty: 70 2RF Discharge Instructions Instructions: Pelvic Pain ED Additional Instructions: Please follow-up with [facility] for reassessment, this may be endometriosis You may try taking the Flexeril as needed for discomfort, this can make you tired I would predominantly use it at night Please follow-up for your ultrasound on Friday Please return earlier should you have fever, chills, or with any new or worsening complaints Referrals: Allison Dempsey MD [Primary Care Provider] - 3 days HPI General Date/Time Provider Initiated Documentation: 03/05/24 17:01. HPI Narrative: This 19-year-old female presents with report of right lower quadrant pain for the past week. Seen at [facility] urgent care had a pelvic exam and vaginal swabs with urine all of which were negative last week at the start of pain. Pain is been constant not radiating to back. Is not sexually active nor has she been. States pain is consistent with prior cysts but has not had the pain for several months. Last menstrual period was in October. Related Data Home Medications ?Medication ?Instructions ?Recorded ?Confirmed amitriptyline 25 mg tablet 25 mg PO QHS #30 tabs 01/12/24 01/31/24 medroxyprogesterone 150 mg/mL 150 mg IM Q12W #1 mL 02/10/24 intramuscular syringe (Depo-Provera) prochlorperazine maleate 5 mg 5 mg PO QID PRN nausea and 02/25/24 tablet (Compazine) vomiting #30 tabs metronidazole 0.75 % (37.5 mg/5 1 appful vaginal BID 5 days #70 02/27/24 gram) vaginal gel grams cyclobenzaprine 10 mg tablet 10 mg PO TID PRN #10 tabs 03/05/24 Previous Rx's ?Medication ?Instructions ?Recorded amitriptyline 25 mg tablet 25 mg PO QHS #30 tabs 01/12/24 medroxyprogesterone 150 mg/mL 150 mg IM Q12W #1 mL 02/10/24 intramuscular syringe (Depo-Provera) prochlorperazine maleate 5 mg 5 mg PO QID PRN nausea and 02/25/24 tablet (Compazine) vomiting #30 tabs metronidazole 0.75 % (37.5 mg/5 1 appful vaginal BID 5 days #70 02/27/24 gram) vaginal gel grams cyclobenzaprine 10 mg tablet 10 mg PO TID PRN #10 tabs 03/05/24 Allergies Allergy/AdvReac Type Severity Reaction Status Date / Time fluconazole (From CaseStacklucan) Allergy Mild nausea Verified 03/05/24 17:05 vomiting Penicillins Allergy hives Verified 03/05/24 17:05 General Stated Complaint: [facility] SOCIAL CARE TE[facility] WINNIE: 3 Exam Narrative Exam Narrative: 19-year-old female in no acute distress, right lower quadrant tenderness, no rebound or guarding, no CVA tenderness, lungs for auscultation, cardiac rate rhythm regular Const General: cooperative, comfortable and no acute distress Course Vital Signs Vital signs: Vital Signs Temperature 36.2 C L 03/05/24 17:01 Pulse 112 H 03/05/24 17:01 Respiratory Rate 14 03/05/24 17:01 Blood Pressure 126/75 03/05/24 17:01 Temperature 36.2 C L 03/05/24 17:01 Temperature Source Temporal Artery Scan 03/05/24 17:01 Pulse 112 H 03/05/24 17:01 Respiratory Rate 14 03/05/24 17:01 Blood Pressure 126/75 03/05/24 17:01 Blood Pressure Position Sitting 03/05/24 17:01 Oxygen Delivery Method Room Air 03/05/24 17:01 Oxygen Flow Rate 0 03/05/24 17:01 Pain Level 6 03/05/24 17:01 Comment taking tylenol without relief 03/05/24 17:01 Lab/Test Results Lab/Test Results: Laboratory Tests Range/Units 03/05/24 03/05/24 17:03 17:35 WBC (4.4-10.8) 10^3/uL 5.19 RBC (3.93-5.22) 10^6/uL 4.72 Hgb (11.2-15.7) g/dL 13.7 Hct (36.0-46.0) % 40.4 MCV (80-95) fL 86 MCH (27.0-33.0) pg 29.0 MCHC (32.0-36.0) % 33.9 RDW (11.7-14.6) % 11.7 Plt Count (130-400) 10^3/uL 248 MPV (8.0-11.0) fL 10.5 Immature Gran % % 0.2 Neutrophils % % 61.2 Lymphocytes % % 26.8 Monocytes % % 8.7 Eosinophils % % 2.1 Basophils % % 1.0 Nucleated RBC % (0.0-0.3) % 0.0 Absolute Neutrophils (1.2-6.7) 10^3/uL 3.18 Absolute Lymphocytes (1.2-3.4) 10^3/uL 1.39 Absolute Monocytes (0.1-0.8) 10^3/uL 0.45 Absolute Eosinophils (0.0-0.7) 10^3/uL 0.11 Absolute Basophils (0.0-0.2) 10^3/uL 0.05 Sodium (136-145) mmol/L 140 Potassium (3.5-5.1) mmol/L 3.6 Chloride (98-107) mmol/L 105 Carbon Dioxide (21.0-32.0) mmol/L 26.3 Anion Gap (3-11) mmol/L 8.7 BUN (7-18) mg/dL 8 Creatinine (0.55-1.02) mg/dL 0.6 Est GFR (CKD-EPI 2020) (mL/min/1.73m2) 131.70 Glucose (74-106) mg/dL 87 Calcium (8.5-10.1) mg/dL 9.2 Total Bilirubin (0.2-1.0) mg/dL 0.44 AST (15-37) U/L 15 ALT (14-59) U/L 19 Alkaline Phosphatase (46-116) U/L 78 C-Reactive Protein (<or=0.5) mg/dL < 0.50 Total Protein (6.4-8.2) g/dL 7.4 Albumin (3.4-5.0) g/dL 4.6 Urine Color (Yellow) Yellow Urine Clarity (Clear) Clear Urine pH (5-8) 7.0 Ur Specific [place] (1.005-1.025) 1.025 Urine Protein (Neg-Trace) mg/dL Negative Urine Ketones (Negative) mg/dL 40 H Urine Blood (Negative) Negative Urine Nitrite (Negative) Negative Urine Bilirubin (Negative) Negative Urine Urobilinogen (Up to 0.2) mg/dL 0.2 Ur Leukocyte Esterase (Negative) Negative Urine Glucose (Negative) mg/dL Negative POC- Test(urine) Negative Medical Decision Making This 19-year-old female presents with report of right lower quadrant tenderness. Patient has had multiple CT scans and ultrasounds that have not shown acute abnormality aside from cyst. Fortunately do not have ultrasound services available at this time. I did relay that patient's CBC and CMP are within normal limits test is negative and patient would like imaging. She is aware of the risk associated with CT. CT does not show evidence of acute abnormality per radiology interpretation my review. Patient had a pelvic exam performed at [facility] and STD swabs performed 1 week prior to arrival which were negative per patient. I see no indication to repeat this testing at this time. Patient was placed on list to follow-up with [facility], she may have endometriosis, she was started on Depo shot but does not feel like this is helping her symptoms. Sister with history of endometriosis. She is referred back to [facility] for outpatient reassessment. An ultrasound of her pelvis was ordered for Friday. Return precautions reviewed and patient expressed understanding. Quality:SDOH Health Related Social Needs: No Data to Display PFSH All Active Problems (Updated 03/05/24 @ 19:25 by KEREN Carrero) Pelvic pain (Acute) Nausea (Acute) Vaginal discharge (Acute) Bladder pain (Acute) Depo-Provera contraceptive status (Acute) Vaginal burning (Acute) Abnormal uterine bleeding (AUB) (Acute) 04/2023. Brown vaginal discharge while using DepoProvera. Chronic pelvic pain in female (Acute) Abdominal pain (Acute) Dyspareunia due to medical condition in female (Acute) RLQ abdominal pain (Acute) GERD (gastroesophageal reflux disease) (Chronic) refractory to PPI therapy Medical History Personal history of noncompliance with medical treatment Irritable bowel syndrome with constipation denies issues as of 02/12/23 Pelvic pain Bacterial vaginosis Yeast infection Frequent UTI Surgical History History of dental surgery No significant past surgical history Social History Smoking/Tobacco Use Status: Current every day Tobacco Type: e-cigarettes Smoking risk assessment performed?: Yes Alcohol Intake: never Drug use: Never Substance use type: does not use Household members: significant other and other Details: lives with Cesario Saleem. 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 Sexually active: Yes Do you feel safe at home: Yes Do you feel safe in your relationship?: Yes
--- NOTE | 2024-03-05 18:47 | DI.CT_ITS ---
Exam(s) CT ABDOMEN PELVIS WO EXAM: CT ABDOMEN PELVIS WO CLINICAL HISTORY: RLQ pain, pt declined contrast,eval ovaries/appy. TECHNIQUE: Imaging Protocol: Axial computed tomography images with coronal and sagittal reformatted images were created and reviewed. Oral: / no COMPARISON: CT CT ABDOMEN PELVIS WO from 08/27/2021 FINDINGS: Lung Bases: No acute findings. Liver: Normal density. No suspicious mass. Gallbladder and biliary tract: No radiodense calculus or biliary dilation. Pancreas: Normal density. No abnormal calcifications or inflammatory process. Spleen: Normal. Kidneys: Normal size, contour and axis. No radiodense stones. No obstructive uropathy. No suspicious masses seen. Adrenal glands: No masses seen. Lymph nodes: Within normal limits. Vasculature: Abdominal aorta non-dilated. Soft tissues: Unremarkable. Bladder: No wall thickening. No mass or calculi. Bowel: No obstruction or bowel wall thickening. The appendix is normal. Peritoneal cavity: No ascites. No focal collection. No mesenteric inflammatory response. Reproductive organs: Unremarkable. Ovaries appear normal. Bones: Unremarkable for age. IMPRESSION: No acute abnormality in the abdomen or pelvis. RADIATION DOSE DELIVERED: Total DLP DATA REPOSITORY: All CT scans at this facility are submitted to the National Radiology Data Registry (NRDR) Dose Index Registry (DIR) with the [employer] (ACR). RADIATION OPTIMIZATION: All CT scans at this facility use at least one of these dose optimization te chniques: automated exposure control; mA and/or kV adjustment per patient size (includes targeted exa ms where dose is matched to clinical indication); or iterative reconstruction.
--- OUTSIDE RECORDS SUMMARY | 2024-03-05 19:15 | XMS_ITS | Continuity of Care Document ---
Author Organization [facility] Address [address] [place] [address] Care Team Providers Care Shellfish Harvester Name Role Phone JAMES ELIZABETH Primary Care Physician Encounter [facility] NBR [id number] Date(s): 02/25/24 - 02/25/[address] [address] Encounter Diagnosis Unspecified abdominal pain(Final) - Discharge Disposition: Left Against Medical Advice Attending Physician: Dima Phoenix DO Admitting Physician: Dima Phoenix DO Encounter Type: Emergency Allergies, Adverse Reactions, Alerts Substance Criticality Severity Reaction Reaction Severity Status penicillin High criticality Moderate Rash Ac tive Assessment and Plan Extracted from: Title:ED Provider Note Author:Silvano Lopez Date:02/26/24 Ordered: aluminum hydroxide/magnesium hydroxide/simethicone 200 mg-200 mg-20 mg/5 mL oral suspension, 30 mL, Oral, Susp, QID, PRN dyspepsia, First Dose: 02/25/24 23:16:00 EST Lactated Ringers Injection 1,000 mL, Total Volume (mL): 1,000, 1,000 mL, Soln- IV, Medication Bolus, 999 mL/hr, Order Duration: 1 doses, Start Date: 02/25/24 22:17:00 EST, Stop Date: 02/25/24 23:16:00 EST, 47.17 kg, Populate Charting Weight From Order, 1.46, m2 Drug Screen Urine, Urine, Stat Collect, 02/25/24 22:17:00 EST, Once, Nurse collect, Print Label Urinalysis with Micro if Indicated and Culture if Indicated, Urine, Stat Collect, 02/25/24 22:17:00 EST, Once, Nurse collect, Print Label Future Scheduled Tests Radiology* US Transvaginal Non-OB [...] Comment: Unit: Unknown 14Result Comment: Unit: Unknown Problem List Condition Confirmation Course Effective Dates Status H ealth Status Informant Amenorrhea Confirmed Active Anxiety Confirmed Active Decrease in appetite Confirmed Active Epigastric pain Confirmed Active Lipoma of abdominal wall Confirmed Active Loss of taste Confirmed Active Major depression, single episode Confirmed Active Menometrorrhagia Confirmed Active Nausea Confirmed Active Patient encounter status Confirmed Active Tonsillitis Confirmed Active Results Laboratory List Name Date .Manual Differential (LTTL) 02/25/24 Beta hCG Quantitative 02/25/24 CBC w/ Diff 02/25/24 Comprehensive Metabolic Panel 02/25/24 Most recent to oldest [Reference Range]: 1 Estimated Creatinine Clearance 133.65 mL /min 1 (02/25/24 11:45 PM) WBC [4.8-10.8 K/mcL] 5.2 K/mcL (02/25/24 11:14 PM) RBC [4.20-5.40 Million/mcL] 4.53 Million /mcL (02/25/24 11:14 PM) Segs Man 53 *NA* (02/25/24 11:14 PM) Lymph Man [20.5-51.1 %] 39.0 % (02/25/24 11:14 PM) Henderson Man [1.7-9.3 %] 6.0 % (02/25/24 11:14 PM) Eos Man [0.00-3.00 %] 1.00 % (02/25/24 11:14 PM) BUN [7-25 mg/dL] 9 mg/dL (02/25/24 11:14 PM) Glucose Level [70-109 mg/dL] 88 mg/dL (02/25/24 11:14 PM) Potassium Level [3.5-5.1 mmol/L] 3.5 mmo l/L (02/25/24 11:14 PM) MCV [81.0-99.0 fL] 85.6 fL (02/25/24 11:14 PM) RBC Morph [Normal] Abnormal *ABN* (02/25/24 11:14 PM) AST [13-39 IntlUnit/L] 15 IntlUnit/L (02/25/24 11:14 PM) ALT [7-52 IntlUnit/L] 9 IntlUnit/L (02/25/24 11:14 PM) MCHC [32.0-37.0 g/dL] 34.8 g/dL (02/25/24 11:14 PM) Osmolality [275-295 mOsm/kg] 274 mOsm/kg *LOW* (02/25/24 11:14 PM) Sodium Level [136-145 mmol/L] 138 mmol/L (02/25/24 11:14 PM) Hct [37.0-47.0 %] 38.8 % (02/25/24 11:14 PM) Microcyte 2+ *ABN* (02/25/24 11:14 PM) Schistocytes 1+ *ABN* (02/25/24 11:14 PM) Calcium Level [8.6-10.3 mg/dL] 9.4 mg/dL (02/25/24 11:14 PM) Albumin Level [3.5-5.7 g/dL] 4.7 g/dL (02/25/24 11:14 PM) Protein Total [6.4-8.9 g/dL] 6.9 g/dL (02/25/24 11:14 PM) MCH [27.0-31.0 pg] 29.8 pg (02/25/24 11:14 PM) Bilirubin Total [0.3-1.0 mg/dL] 0.5 mg/d L (02/25/24 11:14 PM) Hgb [12.0-16.0 g/dL] 13.5 g/dL (02/25/24 11:14 PM) Alk Phos [34-104 IntlUnit/L] 53 IntlUnit /L (02/25/24 11:14 PM) MPV [7.4-10.4 fL] 8.8 fL (02/25/24 11:14 PM) Band Man 1 % *NA* (02/25/24 11:14 PM) Platelets [130-400 K/mcL] 268 K/mcL (02/25/24 11:14 PM) CO2 [21-31 mmol/L] 23 mmol/L (02/25/24 11:14 PM) Chloride Level [98-107 mmol/L] 106 mmol/ L (02/25/24 11:14 PM) RDW-CV [11.5-14.5 %] 12.6 % (02/25/24 11:14 PM) A/G Ratio [1.0-2.5 g/dL] 2.1 g/dL (02/25/24 11:14 PM) BUN/Creat Ratio [8.0-20.0] 18.0 (02/25/24 11:14 PM) Globulin [2.3-3.5 g/dL] 2.2 g/dL *LOW* (02/25/24 11:14 PM) Slide Review Man Diff (02/25/24 11:14 PM) Abs Baso Man [0.0-0.2 K/mcL] 0.0 K/mcL (02/25/24 11:14 PM) Abs Eos Man [0.0-0.2 K/mcL] 0.1 K/mcL (02/25/24 11:14 PM) Abs Lymph Man [1.2-3.4 K/mcL] 2.0 K/mcL (02/25/24 11:14 PM) Abs Henderson Man [0.1-0.6 K/mcL] 0.3 K/mcL (02/25/24 11:14 PM) Abs Neut Man [1.4-6.5 K/mcL] 2.8 K/mcL (02/25/24 11:14 PM) Creatinine Level [0.60-1.20 mg/dL] 0.50 mg/dL *LOW* (02/25/24 11:14 PM) Plt Estimation Normal (02/25/24 11:14 PM) Anion Gap [3.0-12.0] 9.0 (02/25/24 11:14 PM) Baso Man [0.0-0.8 %] 0.0 % (02/25/24 11:14 PM) Beta hCG Qnt [<=5.0 mIntlUnit/mL] <0.6 m IntlUnit/mL 2 (02/25/24 11:14 PM) eGFR CKD-EPI [>=60 mL/min/1.73 m2] 138 m L/min/1.73 m2 (02/25/24 11:14 PM) 1Result Comment: Calculated using method: Cockroft-Gault (Actual Weight) 2Interpretive Data: WEEKS POST LMP: APPROXIMATE HCG (mIU/mL) 3-4 Weeks 9-130 4-5 Weeks 75-2600 5-6 Weeks 850-20,800 6-7 Weeks 4,000-100,200 7-12 Weeks 11,500-289,000 12-16 Weeks 18,300-137,000 16-29 Weeks 1,400-53,000 29-41 Weeks 940-60,000 Vital Signs Most recent to oldest [Reference Range]: 1 Temperature Temporal Artery [36-38 Deg C ] 36.5 Deg C (02/25/24 9:23 PM) Temperature Temporal Artery (DegF) [97.3 -100 Deg F] 97.7 Deg F (02/25/24 9:23 PM) Peripheral Pulse Rate [60-100 bpm] 98 bp m (02/25/24 9:23 PM) Respiratory Rate [12-24 br/min] 18 br/mi n (02/25/24 9:23 PM) Blood Pressure [90-120/60-80 mmHg] 113/7 4mmHg (02/25/24 9:23 PM) Weight 47.17 kg (02/25/24 9:11 PM) Weight Dosing 47.170 kg (02/25/24 9:11 PM) Height 162.56 cm (02/25/24 9:11 PM) Body Mass Index 17.85 kg/m2 (02/25/24 9:11 PM) Social History Social History Type Response Tobacco Never tobacco user, smokeless tobacco daily Tobacco Use:. Sex Female Sex Representation Female (finding) Physician Emergency department Note * Dima Phoenix DO: PERFORM Event Display: ED Note Physician Authored Date: [id number] JOSE ROBERTO BALBEUNA :2005 Age:19 years Sex:Female Visit Date:02/25/2024 Primary Care Physician: JAMES ELIZABETH Basic Information Time Seen: Dima Phoenix DO / 02/25/2024 21:44 Chief Complaint Patient in with complaints of abdominal pain for 3 days. ??Seen at this morning. ??Given bentyl but can't swallow. History Of Present Illness: Patient presents to the emergency department??this evening complaining of??generalized??waxing waning abdominal pains over the last??3 days.?? Patient has been having some nausea without vomiting, normal bowel movement last night. ??No urinary urgency, frequency or hematuria. ??No abnormal vaginal bleeding or discharge, last menses was the beginning of the month??and patient states she is not sexually active. ??She had no fevers or chills, nasal congestion or cough, known sick contacts or significant travel. ??No new medications or recent antibiotics. ??Patient was seen urgent care??this morning for the symptoms, underwent urine testing??are most prescribed??dicyclomine but states she is barbara ble to swallow them secondary to her??chronic tonsillar swelling. Physical Exam Vitals & Measurements T:??36.5?C ??(Temporal Artery)?? HR:??98??(Peripheral)?? RR:??18?? BP:??113/74?? SpO2:??100%?? HT:??162.56??cm?? WT:??47.17??kg?? BMI:??17.85?? General: No acute distress, awake, alert and pleasant, nontoxic appearing Skin: Warm, pink and dry, no rash Head: Normocephalic, atraumatic, mucous membranes moist, no pharyngeal erythema or edema. Eye: Pupils equal, round and reactive, extraocular muscles intact Neck: Supple, nontender, no lymphadenopathy Cardiovascular: Regular rate and rhythm, no murmur, rub or gallop. Respiratory: Clear to auscultation bilaterally, no wheezes, rales or rhonchi. Gastrointestinal: Soft, nontender, nondistended, bowel sounds present. Neurological: CN II through XII intact, no focal neurologic deficits. MSK: Extremities with normal active range of motion without deformity Medical Decision Making: Patient is a 19-year-old female??with past history of??chronic abdominal pains,??anxiety, depression, presenting with??apparent exacerbation of her pains.?? She had quite a benign exam, plan to check??CBC, CMP and lipase to rule out??serious bacterial infection,??metabolic derangements, renal sufficiency, pancreatitis??and also plan to recheck??urine for evidence of UTI, , or cannabis.??After discussion??of??checking labs and giving IV medications??patient then told RN she did not wish to have an IV??and just wanted oral medications. ??I prescribed??Tylenol suspension??however patien t??told the nurse she did not want that. ??Shortly after being notified of this??before I could reevaluate the patient she??eloped from the emergency department. Procedure No Qualifying Data Assessment/Plan Ordered: aluminum hydroxide/magnesium hydroxide/simethicone 200 mg-200 mg-20 mg/5 mL oral suspension, 30 mL,Oral, Susp, QID, PRN dyspepsia, First Dose: 02/25/24 23:16:00 EST Lactated Ringers Injection 1,000 mL, Total Volume (mL): 1,000, 1,000 mL, Soln- IV, Medication Bolus,999 mL/hr, Order Duration: 1 doses, Start Date: 02/25/24 22:17:00 EST, Stop Date: 02/25/24 23:16:00EST, 47.17 kg, Populate Charting Weight From Order, 1.46, m2 Drug Screen Urine, Urine, Stat Collect, 02/25/24 22:17:00 EST, Once, Nurse collect, Print Label Urinalysis with Micro if Indicated and Culture if Indicated, Urine, Stat Collect, 02/25/24 22:17:00EST, Once, Nurse collect, Print Label Medication Reconciliation Unchanged azithromycin (Zithromax Z-Nicholas 250 mg oral tablet)1 packets Oral (given by mouth) every day for 5 Days. Take 2 tablets on day 1 and 1 tablet days 2 through 5 with a quantity of 6.. Refills: 0. ?? busPIRone (busPIRone 5 mg oral tablet)TAKE 1/2 TO 1 TABLET BY MOUTH UP TO THREE TIMES DAILY NEEDED. ?? dicyclomine (dicyclomine 10 mg/5 mL oral syrup)10 Milliliters Oral (given by mouth) 4 times a day for 7 Days. Refills: 0. ?? FLUoxetine ?? hydrOXYzine ?? hyoscyamine ?? [...] and Differential?? LATEST RESULTS?? HISTORICAL RESULTS?? WBC?? 02/25/24 23:14?? 5.2?? 01/21/24?? 4.6 ??Low?? RBC?? 02/25/24 23:14?? 4.53?? 01/21/24?? 4.45?? Hgb?? 02/25/24 23:14?? 13.5?? 01/21/24?? 13.1?? Hct?? 02/25/24 23:14?? 38.8?? 01/21/24?? 38.4?? MCV?? 02/25/24 23:14?? 85.6?? 01/21/24?? 86.3?? MCH?? 02/25/24 23:14?? 29.8?? 01/21/24?? 29.4?? MCHC?? 02/25/24 23:14?? 34.8?? 01/21/24?? 34.0?? RDW-CV?? 02/25/24 23:14?? 12.6?? 01/21/24?? 13.0?? Platelets?? 02/25/24 23:14?? 268?? 01/21/24?? 224?? MPV?? 02/25/24 23:14?? 8.8?? 01/21/24?? 8.5?? Segs Man?? 02/25/24 23:14?? 53? Lymph Man?? 02/25/24 23:14?? 39.0? Henderson Man?? 02/25/24 23:14?? 6.0? Eos Man?? 02/25/24 23:14?? 1.00? Baso Man?? 02/25/24 23:14?? 0.0? Band Man?? 02/25/24 23:14?? 1? Abs Neut Man?? 02/25/24 23:14?? 2.8? Abs Lymph Man?? 02/25/24 23:14?? 2.0? Abs Henderson Man?? 02/25/24 23:14?? 0.3? Abs Eos Man?? 02/25/24 23:14?? 0.1? Abs Baso Man?? 02/25/24 23:14?? 0.0? RBC Morph?? 02/25/24 23:14?? Abnormal Abnormal? Microcyte?? 02/25/24 23:14?? 2+ Abnormal? Plt Estimation?? 02/25/24 23:14?? Normal? Schistocytes?? 02/25/24 23:14?? 1+ Abnormal? Slide Review?? 02/25/24 23:14?? Man Diff?? 12/15/23?? Not Indicated? Routine Chemistry?? LATEST RESULTS?? HISTORICAL RESULTS?? Sodium Level?? 02/25/24 23:14?? 138?? 01/21/24?? 140?? Potassium Level?? 02/25/24 23:14?? 3.5?? 01/21/24?? 3.6?? Chloride Level?? 02/25/24 23:14?? 106?? 01/21/24?? 110 ??High?? CO2?? 02/25/24 23:14?? 23?? 01/21/24?? 23?? Alk Phos?? 02/25/24 23:14?? 53?? 01/21/24?? 55?? AST?? 02/25/24 23:14?? 15?? 01/21/24?? 15?? ALT?? 02/25/24 23:14?? 9?? 01/21/24?? 9?? BUN?? 02/25/24 23:14?? 9?? 01/21/24?? 8?? Glucose Level?? 02/25/24 23:14?? 88?? 01/21/24?? 102?? Creatinine Level?? 02/25/24 23:14?? 0.50 ??Low?? 01/21/24?? 0.50 ??Low?? BUN/Creat Ratio?? 02/25/24 23:14?? 18.0?? 01/21/24?? 16.0?? eGFR CKD-EPI?? 02/25/24 23:14?? 138?? 01/21/24?? 138?? Calcium Level?? 02/25/24 23:14?? 9.4?? 01/21/24?? 8.7?? Protein Total?? 02/25/24 23:14?? 6.9?? 01/21/24?? 6.2 ??Low?? Albumin Level?? 02/25/24 23:14?? 4.7?? 01/21/24?? 4.1?? Globulin?? 02/25/24 23:14?? 2.2 ??Low?? 01/21/24?? 2.1 ??Low?? A/G Ratio?? 02/25/24 23:14?? 2.1?? 01/21/24?? 2.0?? Bilirubin Total?? 02/25/24 23:14?? 0.5?? 01/21/24?? 0.4?? Anion Gap?? 02/25/24 23:14?? 9.0?? 01/21/24?? 7.0?? Osmolality?? 02/25/24 23:14?? 274 ??Low?? 01/21/24?? 278? Testing?? LATEST RESULTS?? HISTORICAL RESULTS?? Beta hCG Qnt?? 02/25/24 23:14?? <0.6?? 01/21/24?? <0.6? Electronically Signed on 02/26/2024 01:45 EST Dima Phoenix DO Patient Care team information Care Team Personnel Name: Krystal Kurtz APRN Position: Physician Member Role: Nurse Practitioner Address: [address] [place] [address]- Telecom: Name: JAMES ELIZABETH Position: No Access Member Role: Primary Care Physician Address: [facility] [address] [place] [address]- Telecom: Care Team Related Persons Name: FAIZA BALBUENA Insurance Providers Guarantor name: JOSE ROBERTO BALBUENA Health Plan Information #: 1 Payer: [place] Member Number: [id number] Policy Number: NA Group Number: NA Health Plan Information #: 2 Payer: [place] Member Number: [id number] Policy Number: NA Group Number: NA Health Plan Information #: 3 Payer: [place] Member Number: [id number] Policy Number: NA Group Number: NA
--- OUTSIDE RECORDS SUMMARY | 2024-03-05 19:16 | XMS_ITS | Encounter Summary ---
Author Organization [facility] [place] [address] Care Team Providers Care Sheet Turner Name Role Phone JerardoKrystal velasquez MIRTA Primary Care Provider [phone] Encounter Details Date Type Department Care Team (Late st Contact Info) Description 01/07/2022 [place] [id number] Jayna Coats [facility] [place] [address] Social History Tobacco Use Types Packs/Day Years [...] anxiety surrounding the start of the procedure. WEARING APPAREL FOLDER administered Precedex to help calm her, became [...] started the infusion within a few seconds. [place], WEARING APPAREL FOLDER and I were speaking calmly to comfort [...] GI provider. Jayna Coats DO, FAAP [facility] Pediatric Gastroenterology [address] [place] [address] MCKAYLA Goldsmith [phone] Pager [phone] documented in this encounter Plan of Treatment Not on file documented as of this encounter Visit Diagnoses Not on filedocumented in this encounter Care Teams Sheet Turner Relationship Specialty Start Date End Date Krystal Kurtz APRN PCP - General Family Medicine 09/23/21 01/22/24 documented as of this encounter
--- OUTSIDE RECORDS SUMMARY | 2024-03-05 19:16 | XMS_ITS | Encounter Summary ---
Author Organization [place] [address] Care Team Providers Care Windows Administrator Name Role Phone Krystal Kurtz APRN Primary Care Provider [phone] Reason for Referral * Consultation (Routine) - Authorized Specialty Diagnoses / Procedures Referred By Contac t Referred To Contact Obstetrics and Gynecology Diagnoses Dysmenorrhea, unspecified HAS TRIED DEPO PROVERA, OCPS, NEXPLANON. DECLINES IUDS. WANTS DISCUSSION ABOUT ENDOMETRIOSIS Barbara Orourke APRN [address] [place] [address] [facility] [employer] [address] [place] [address] Referral ID Status Reason Start Date Expiration Date Visits Requested Visits Authorized [id number] Authorized Consult, Test & Treat PCP Updated and/or Approved 04/18/2023 04/17/2024 6 6 Encounter Details Date Type Department Care Team (Latest Contact Info) Description 04/18/2023 Transcribe Orders eDH Incoming Referrals [phone] Barbara Orourke APRN [address] [place], [place] [id number] Dysmenorrhea, unspecified Social History Tobacco Use Types [...] Associated Diagnoses Orde r Schedule Referral to [facility] Referral Routine Dysmenorrhea, unspecified Ordered: 04/18/2023 documented as of this encounter Visit Diagnoses Diagnosis Dysmenorrhea, unspecified documented in this encounter Care Teams Windows Administrator Relationship Specialty Start Date End Date Krystal Kurtz APRN PCP - General Family Medicine 09/23/21 01/22/24 documented as of this encounter
--- OUTSIDE RECORDS SUMMARY | 2024-03-05 19:16 | XMS_ITS | Clinical Summary ---
Author Organization [facility] Address [address] [place] [address] Care Team Providers Care Clerk Entry Level Name Role Phone Unavailable Primary Care Provider Unavailabl e Encounters Date Type Department Care Team Description 02/18/2024 Lab Requisition [facility] Pathology & Laboratory [facility] [address] [place] [address] Outr Resulting Lab, Provider 02/04/2024 Lab Requisition [facility] Pathology & Laboratory [facility] [address] [place] [address] Outr Resulting Lab, Provider from Last 3 Months Social History Tobacco Use Types Packs/Day Years [...] - 19+ 3-dose series) 01/09 COVID-19 Vaccine ( season) 2023 Procedures Procedure Name Priority Date/Time Associated Diagnosis Comments CHLAMYDIA/N. GONORRHOEAE AMPLIFIED NUCLEIC ACID Routine 02/17/2024 15:05 EST HIV 1/2 ANTIGEN AND ANTIBODY, 4TH GENERATION Routine 02/03/2024 10:10 EST from Last 3 Months Results * CHLAMYDIA/N. GONORRHOEAE AMPLIFIED NUCLEIC ACID (02/17/2024 15:05 EST) Neisseria gonorrhoeae Result Negative Negative 02/19/2024 12:05 EST [facility] Chlamydia trachomatis Result Negative Negative 02/19/2024 12:05 EST [facility] Urine URINE / Unknown 02/17/2024 1 5:05 EST 02/18/2024 18:19 EST Narrative [facility] - 02/19/2024 12:05 EST A first catch urine specimen is acceptable for detection of Gonorrhea and Chlamydia, but might detect up to 10% fewer infections when compared with vaginal swab samples. us Provider Outr Resulting Lab MICROBIOLOGY - GENER AL ORDERABLES Final Result Performing Organization Address [facility]/ZIP Co de Phone Number [facility] [address], [place] [id number] * HIV 1/2 ANTIGEN AND ANTIBODY, 4TH GENERATION (02/03/2024 10:10 EST) [facility] HIV 1 and 2 Antibody/p24 Antigen, 4th Generation Negative Negative 02/06/2024 10:17 EST [facility] Comment:If acute HIV-1 infec tion is suspected in a high risk patient, submit plasma specimen for HIV-1 RNA quantitation test. Blood VENOUS BLOOD / Unknown 02/03/2024 10:10 EST 02/05/2024 17:13 EST Narrative [facility] - 02/06/2024 10:17 EST Fourth Generation assay performed on the Siemens [employer] XPT. us Provider Outr Resulting Lab IMMUNOLOGY AND SEROL OGY ORDERABLES Final Result Performing Organization Address City/[facility]/ZIP Co de Phone Number [facility] [address] [place] [address] from Last 3 Months
--- OUTSIDE RECORDS SUMMARY | 2024-03-05 19:16 | XMS_ITS | Encounter Summary ---
Author Organization [facility] [place] [address] Care Team Providers Care Manager Card Name Role Phone Krystal Kurtz APRN Primary Care Provider [phone] Reason for Referral * Consultation (Routine) - Closed Specialty Diagnoses / Procedures Referred By Contac t Referred To Contact Nutrition Diagnoses Weight loss Chronic nausea Chronic abdominal pain Cait Alexandre APRN [facility] DR PEDIATR[place] [address] [facility] Pedi Nutrition [address] [place] [phone] Referral ID Status Reason Start Date Expiration Date V isits Requested Visits Authorized [id number] Closed Continuity of Care 12/31/2021 12/31/2022 1 1 Reason for Visit * Consultation (Routine) - Closed Specialty Diagnoses / Procedures Referred By Contact Referred To Contact Pediatric Gastroenterology Diagnoses Abdominal pain, unspecified abdominal location Unintended weight loss Natividad Barker MD [address] [place] [address] [facility] Pedi Gastro [address] [place] [phone] Referral ID Status Reason Start Date Expiration Date V isits Requested Visits Authorized [id number] Closed Consult, Test & Treat PCP Updated and/or Approved 09/25/2021 09/25/2022 6 6 Encounter Details Date Type Department Care Team (Latest Contact Info) Description 12/31/2021 1:00 PM EST Office Visit Pediatric [place] [address] Cait Alexandre APRN [facility] PEDIATRIC [place] [address] Weight loss; BRBPR (bright red blood per [...] has been scheduled for a Colonoscopy at [facility] with Dr. Jayna Coats on Friday, r 2021. Pre-Procedure Calls: The business day before the procedure, you will receive a call from the marine engine machinist apprentice from [facility] Pediatric Gastroenterology office with arrival time and [...] to use. Coupons can be found at [employer]. Three days prior to colonoscopy: Purchase Gatorade?? 20 to 96 oz. (see dosing below; do not purchase Gatorade zero or G2) Purchase these obvy-wok-xvflido medications: One 510 gram bottle of Miralax?? [...] procedure: Stop clear liquids. Please contact the [facility] Pediatric Gastroenterology office at with any questions. [...] drinking 1-2 Boost/Ensure per day -Referral to Antisubmarine Weapons Officer placed -Try and take littler sips of Pedialyte or Gatorade for rehydration. -Please return to PCP on Friday for repeat pulse check -Plan to follow up -via telehealth 2 weeks following endoscopy documented in this encounter Progress Notes * Cait Alexandre APRN - 12/31/2021 1:00 PM ESTSummary: Initital Pediatric GI Visit 01/02/22 ?Krystal Kurtz APRN [address] [place] [address] Re: Marilu Dee [id number] 2005 16 y.o. Dear ??Krystal Kurtz??, ? It was a pleasure seeing ??Marilu? for initial consultation at [facility] Pediatric Gastroenterology clinic for chronic abdominal pain, weight loss, rectal bleeding and reflux. ?? HPI Marilu is here today with mom(Maria Guadalupe), Dad (Mehul) and younger sister (Janell) . They are coming from [place], [place]. -16-year-old female presenting with chronic abdominal [...] had seen another GI provider up in [place]. Has had negative celiac screening and previous normal sed rate and CRP. She was prescribed Levsin which she has not found helpful. -She has been scheduled for an EGD and [place] several times however had several reasons it [...] %ile based on CDC (Girls, 2-20 Years) wxjqhw-lip-cyv data based on Weight recorded on12/31/2021. Height/Length: 45 %ile based on CDC (Girls, 2-20 Years) Meeuekm-oyf-dmi data based on Stature recorded on 12/31/2021. BMI: <1 %ile based on CDC (Girls, 2-20 Years) BMI-for-age based on body measurements available as of 12/31/2021. Weight for length: Normalized upbmxf-yrz-qnvzjvsrz length data not available for patients older [...] well-regardless I placed a referral to our welfare eligibility worker as she is at risk for significant [...] drinking 1-2 Boost/Ensure per day -Referral to Antisubmarine Weapons Officer placed -Try and take littler sips of [...] has been scheduled for a Colonoscopy at [facility] with Dr. Jayna Coats on 2021. Pre-Procedure Calls: The business day before the procedure, you will receive a call from the marine engine machinist apprentice from [facility] Pediatric Gastroenterology office with arrival time and [...] to use. Coupons can be found at [employer]. Three days prior to colonoscopy: Purchase Gatorade?? 20 to 96 oz. (see dosing below; do not purchase Gatorade zero or G2) Purchase these qevp-xlu-bonugzh medications: ??? One 510 gram bottle of [...] procedure: Stop clear liquids. Please contact the [facility] Pediatric Gastroenterology office at with any questions. [...] drinking 1-2 Boost/Ensure per day -Referral to Antisubmarine Weapons Officer placed -Try and take littler sips of Pedialyte or Gatorade for rehydration. -Please return to PCP on Friday for repeat pulse check -Plan to follow up -via telehealth 2 weeks following endoscopy Thank you for involving me in ??Marilu?'s care. If you have any questions, please feel free to contact me. ? Sincerely, Cait Alexandre APRN Department of Pediatric Gastroenterology [facility] documented in this encounter Plan of [...] Barbiturates Screen, Urine None Detected None Detected [facility] Comment: The barbiturate screen detects barbiturates [...] Benzodiazepines Screen, Urine None Detected None Detected [facility] Comment: The benzodiazepines screen detects benzodiazepines [...] Cocaine Screen, Urine None Detected None Detected [facility] Comment: The cocaine metabolites screen detects benzoylecgonine (Cocaine Metabolite) at concentrations >150 ng/mL. A ? Presumptive Positive? result indicates that the screening result was positive but has not yet been confirmed by a highly-specific method. As with any screen, occasional false positive results from cross-reacting substances may occur. Not for Medico-Legal Purposes. Methadone Metabolites Screen, Urine None Detected None Detected [facility] Comment: The methadone metabolite screen detects EDDP (major methadone metabolite) at concentrations >100 ng/mL. A ? Presumptive Positive? result indicates that the screening result was positive but has not yet been confirmed by a highly-specific method. As with any screen, occasional false positive results from cross-reacting substances may occur. Not for Medico-Legal Purposes. Opiate Screen, Urine None Detected None Detected [facility] Comment: The opiates screen detects opiates [...] Cannabinoid Screen, Urine None Detected None Detected [facility] Comment: The marijuana metabolites screen detects the THC metabolite (87-ddm-8-carboxy-delta 9-THC) at concentrations >20 ng/mL. A ? Presumptive Positive? result indicates that the screening result was positive but has not yet been confirmed by a highly-specific method. As with any screen, occasional false positive results from cross-reacting substances may occur. Not for Medico-Legal Purposes. Oxycodone Screen, Urine None Detected None Detected [facility] Comment: The oxycodone screen detects oxycodone and oxymorphone at concentrations >100 ng/mL. A ? Presumptive Positive? result indicates that the screening result was positive but has not yet been confirmed by a highly-specific method. As with any screen, occasional false positive results from cross-reacting substances may occur. Not for Medico-Legal Purposes. Buprenorphine Screen, Urine None Detected None Detected [facility] Comment: The buprenorphine screen detects buprenorphine [...] characteristics of this test were determined by [facility] in accordance with CLIA requirements. This laboratory is qualified under CLIA to perform high-complexity testing. Fentanyl Screen, Urine None Detected None Detected [facility] Comment: The fentanyl screen detects fentanyl [...] characteristics of this test were determined by [facility] in accordance with CLIA requirements. This laboratory is qualified under CLIA to perform high-complexity testing. Tricyclics Screen, Urine None Detected None Detected [facility] Comment: The tricyclics screen detects tricyclic [...] characteristics of this test were determined by [facility] in accordance with CLIA requirements. This laboratory is qualified under CLIA to perform high-complexity testing. Ethanol Screen, Urine None Detected None Detected [facility] Comment:This urine ethanol a ssay detects ethanol at concentrations >/= 100 mg/L. Amphetamines Screen, Urine None Detected None Detected [facility] Comment: The amphetamine screen detects d-amphetamine and d-methamphetamine at concentrations >300 ng/mL. A ? Presumptive Positive? result indicates that the screening result was positive but has not yet been confirmed by a highly-specific method. As with any screen, occasional false positive results from cross-reacting substances may occur. Not for Medico-Legal Purposes. Adulterants Screen, Urine None Detected None Detected [facility] Comment: No adulteration or dilution of [...] Alexandre APRN CHEMISTRY ORDERABLES Performing Organization Address [facility] Co de Phone Number [facility] [place] [address] * Rapid Drug Screen, Urine (DEANDRE Request) (12/31/2021 2:19 PM EST) DEANDRE Conf Requested Yes [facility] DEANDRE Requested See Comment [facility] Comment:Refer to Rapid Drug Screen w/ Confirmation, Urine for results. Urine Urine / Unknown 12/31/2021 2 :19 PM EST 12/31/2021 2:26 PM EST Narrative Resulting Agency Comment Spec In Lab Cait Alexandre APRN URINE ORDERABLES Performing Organization Address [facility] Co de Phone Number [facility] [place] [address] documented in this encounter Visit Diagnoses Diagnosis Weight loss Loss of weight BRBPR (bright red blood per rectum) Hemorrhage of rectum and anus Chronic nausea Nausea alone Chronic abdominal pain Abdominal pain, unspecified site Tachycardia Tachycardia, unspecified documented in this encounter Care Teams Manager Card Relationship Specialty Start Date End Date Krystal Kurtz APRN PCP - General Family Medicine 09/23/21 01/22/24 documented as of this encounter
--- OUTSIDE RECORDS SUMMARY | 2024-03-05 19:16 | XMS_ITS | Encounter Summary ---
Author Organization [facility] Address [facility] [place] [address] Care Team Providers Care Propeller Driven Airplane Mechanic Name Role Phone Krystal Kurtz APRN Primary Care Provider [phone] Reason for Referral * Physical Therapy (Routine) - Closed Specialty Diagnoses / Procedures Referred By Contac t Referred To Contact Physical Therapy Diagnoses Dysmenorrhea Dyspareunia, female On Depo-Provera for contraception Menorrhagia with regular cycle Isabelle Thrasher MD [facility] OBSTETRICS & [place] [address] [facility], [address] [address] Referral ID Status Reason Start Date Expiration Date V isits Requested Visits Authorized [id number] Closed Evaluate and Treat 06/20/2023 12/17/2023 12 12 Reason for Visit * Consultation (Routine) - Authorized Specialty Diagnoses / Procedures Referred By Contac t Referred To Contact Obstetrics and Gynecology Diagnoses Dysmenorrhea, unspecified HAS TRIED DEPO PROVERA, OCPS, NEXPLANON. DECLINES IUDS. WANTS DISCUSSION ABOUT ENDOMETRIOSIS Barbara Orourke, [place] [address] [facility] [address] [place] [address] Referral ID Status Reason Start Date Expiration Date Visits Requested Visits Authorized [id number] Authorized Consult, Test & Treat PCP Updated and/or Approved 04/18/2023 04/17/2024 6 6 Encounter Details Date Type Department Care Team (Late st Contact Info) Description 06/20/2023 9:00 AM EDT Office Visit Obstetrics [place] [address] Isabelle Thrasher MD [facility] OBSTETRICS & [place] [address] Dysmenorrhea; Dyspareunia, female; On Depo-Provera for contraception; [...] MD - 06/20/2023 9:00 AM EDT NEW MATRIX INSPECTOR VISIT Referring Provider: [address] [address] S: Marilu Dee is G0 female with dysmenorrhea, HMB, managed with Depo- Provera, presents for 1) counseling on endometriosis, 2) BV testing, and 3) dyspareunia evaluation #HMB, dysmenorrhea #Current Depo use Menarche onset: age 13 Menses: monthly, prolonged heavy bleeding, can last 2-3 wks, with passage of blood clots. Previously sought care at [facility] for initial evaluation. Initially tried the [...] testing 1 wk ago, neg GC/CT (see [facility] result). Plan future fertility around age 24 [...] Priority Date/Time Associated Diagnosis Comments VAGINITIS/OSIS PANEL ([facility]/APD/NL/CGP) Routine 06/20/2023 4:00 PM EDT Dysmenorrhea Dyspareunia, female POCT URINE Routine 06/20/2023 10:00 AM EDT documented in this encounter Results * Vaginitis/osis Panel ([facility]/APD/NLH/CGP) (06/20/2023 4:00 PM EDT) Bacterial vaginosis Negative Negative [facility] Elvira sp. Group Negative Negative [facility] Elvira Glabrata Negative Negative [facility] Trichomonas vaginalis Negative Negative [facility] BV/CV/TV Interp Results from these nucleic [...] and BV Assay were tested on the [employer]. These assays are cleared by the [place] Food & Drug Administration for clinical testing. [facility] Vaginal 06/20/2023 4:00 PM EDT 06/20/2023 4:00 PM EDT Narrative Resulting Agency Comment Spec In Lab Nicol Laguna MD MICROBIOLOGY - NERAL ORDERABLES [facility] [place] [address] * POCT urine (06/20/2023 10:00 AM EDT) POC Urine HCG Negative POC Control Internal Controls Acceptable 06/20/2023 10:0 0 AM EDT Nicol Laguna MD POINT [facility] C[facility] T ORDERABLES documented in this encounter Visit Diagnoses Diagnosis Dysmenorrhea Dyspareunia, female Dyspareunia On Depo-Provera for contraception Menorrhagia with regular cycle Excessive or frequent menstruation documented in this encounter Care Teams Propeller Driven Airplane Mechanic Relationship Specialty Start Date End Date Krystal Kurtz APRN PCP - General Family Medicine 09/23/21 01/22/24 documented as of this encounter
--- OUTSIDE RECORDS SUMMARY | 2024-03-05 19:16 | XMS_ITS | Encounter Summary ---
Author Organization [facility] [place] [address] Care Team Providers Care Curing Bin Operator Name Role Phone Jerardo Krystal KIRBY Primary Care Provider [phone] Encounter Details Date Type Department Care Team (Latest Contact Info) Description 01/07/2022 10:02 AM EST - 01/07/2022 1:15 PM EST Hospital Encounter [place] [address] Jayna Coats [facility] PEDIATRIC [place] [address] Discharge Disposition: Home Social History Tobacco Use [...] 35 AM EST Growth Chart: [facility] (Girls, 2- 20 Years) documented in this [...] %ile based on CDC (Girls, 2-20 Years) dhciho-uvn-wzo data based on Weight recorded on 01/07/2022. 47 %ile based on CDC (Girls, 2-20 Years) Apbmtxk-eva-buf data based on Stature recorded on 01/07/2022. [...] proceed. Jayna Coats DO Pediatric Gastroenterology Pager [phone] documented in this encounter Plan of Treatment [...] RN) documented in this encounter Care Teams Curing Bin Operator Relationship Specialty Start Date End Date Krystal Kurtz APRN PCP - General Family Medicine 09/23/21 01/22/24 documented as of this encounter
--- OUTSIDE RECORDS SUMMARY | 2024-03-05 19:16 | XMS_ITS | Encounter Summary ---
Author Organization [facility] Address [facility] [place] [address] Care Team Providers Care Dobby Loom Fixer Name Role Phone Krystal Kurtz APRN Primary Care Provider [phone] Encounter Details Date Type Department Care Team [...] on filedocumented in this encounter Care Teams Dobby Loom Fixer Relationship Specialty Start Date End Date Krystal Kurtz APRN PCP - General Family Medicine 09/23/21 01/22/24 documented as of this encounter
--- OUTSIDE RECORDS SUMMARY | 2024-03-05 19:16 | XMS_ITS | Encounter Summary ---
[place] [address] Care Team Providers Care Seafood Process Worker Name Role Phone Krystal Kurtz APRN Primary Care Provider [phone] Reason for Referral * Consultation (Routine) - Closed Specialty Diagnoses / Procedures Referred By Contact Referred To Contact Pediatric Gastroenterology Diagnoses Abdominal pain, unspecified abdominal location Unintended weight loss Natividad Barker MD [address] [place] [address] [facility] Pedi Gastro [address] [place] [address] Referral ID Status Reason Start Date Expiration Date V isits Requested Visits Authorized [id number] Closed Consult, Test & Treat PCP Updated and/or Approved 09/25/2021 09/25/2022 6 6 Encounter Details Date Type Department Care Team (Late st Contact Info) Description 09/25/2021 Transcribe Orders eDH Incoming Referrals [phone] Natividad Barker MD [address] [place] [address] Abdominal pain, unspecified abdominal location; [...] loss documented in this encounter Care Teams Seafood Process Worker Relationship Specialty Start Date End Date Krystal Kurtz APRN PCP - General Family Medicine 09/23/21 01/22/24 documented as of this encounter
--- OUTSIDE RECORDS SUMMARY | 2024-03-05 19:16 | XMS_ITS | Encounter Summary ---
Author Organization [facility] Address [facility] [place] [address] Care Team Providers Care Workers' Compensation Commissioner Name Role Phone Krystal Kurtz APRN Primary Care Provider [phone] Encounter Details Date Type Department Care Team (Late st Contact Info) Description 01/04/2022 Telephone Pediatric [place] [address] Diane Melgar RN Social History [...] Of 1010 arrival time on 01/07/22 for EGD/[place] at 4T. Reviewed preparation and NPO after midnight. Allowed small sip of water/ольга tracy/apple juice until 2 hrs prior to arrival time. Only necessary medications such as seizure meds day of. Denies recent illness. documented in this encounter Plan of Treatment Not on file documented as of this encounter Visit Diagnoses Not on filedocumented in this encounter Care Teams Workers' Compensation Commissioner Relationship Specialty Start Date End Date Krystal Kurtz APRN PCP - General Family Medicine 09/23/21 01/22/24 documented as of this encounter
--- OUTSIDE RECORDS SUMMARY | 2024-03-05 19:16 | XMS_ITS | Encounter Summary ---
Author Organization [facility] [place] [address] Care Team Providers Care Block Making Machine Operator Name Role Phone Krystal Kurtz RAZOR SHARPENER Primary Care Provider [phone] Encounter Details Date Type Department Care Team (Late st Contact Info) Description 01/07/2022 12:08 PM EST Anesthesia [place] [id number] John Patton MD ApMel [facility] [place] [address] Anesthesia Record Procedure Summary Procedure Name Responsible [...] Procedure Summary Date: 01/07/22 Room / Location: [facility] / [facility] Anesthesia Start: 1208 Anesthesia Stop: 1242 Procedures: EGD, UPPER GI ENDOSCOPY (Trunk) PEDIATRIC COLONOSCOPY Diagnosis: Chronic abdominal pain (Weight loss, chronic abdominal pain, intermittent rectal bleeding and PPI refractory reflux) Surgeons: Jayna Coats DO Responsible Provider: John Patton MD Anesthesia Type: MAC ASA Status: 2 All Anesthesia Providers: Anesthesiologist: John Patton MD SENIOR ACCOUNT EXECUTIVE: Mel De Souza CRNA Vitals Value Taken [...] can be guaranteed. Explained that anesthesia at [facility] is commonly delivered in a team care model fashion, with either resident or CRNAs supervised by an anesthesiologist, who frequently supervises one or more other anesthesia deliveries, provide care. -- John Patton MD, MS Informed Consent: Anesthetic plan and risks discussed with patient and father. Plan discussed with SENIOR ACCOUNT EXECUTIVE. Anesthesia Screening documented in this encounter Plan [...] mcg documented in this encounter Care Teams Block Making Machine Operator Relationship Specialty Start Date End Date Krystal Kurtz APRN PCP - General Family Medicine 09/23/21 01/22/24 documented as of this encounter
--- OUTSIDE RECORDS SUMMARY | 2024-03-05 19:16 | XMS_ITS | Encounter Summary ---
Author Organization [facility] Address [facility] [place] [address] Care Team Providers Care Log Snaker Name Role Phone Krystal Kurtz APRN Primary Care Provider [phone] Encounter Details Date Type Department Care Team (Late st Contact Info) Description 06/25/2023 Telephone Obstetrics [place] [address] Krystal Bernardo, RN Social History Tobacco Use [...] on filedocumented in this encounter Care Teams Log Snaker Relationship Specialty Start Date End Date Krystal Kurtz APRN PCP - General Family Medicine 09/23/21 01/22/24 documented as of this encounter
--- OUTSIDE RECORDS SUMMARY | 2024-03-05 19:16 | XMS_ITS | Clinical Summary ---
Author Organization [facility] Address [facility] [place] [address] Care Team Providers Care Geological E Logger Name Role Phone Reinier Kenney Primary Care [...] PM EST Ext Surgery or Single Event [facility] [address] [facility] [place] [address] Gopi Harkins MD Palpitations from [...] Procedure Name Priority Date/Time Associated Diagnosis Comments FREIGHT CAR REPAIRER SCAN 01/26/2024 12:00 AM EST from Last 3 Months Results * Scan Doc: Call Center Professional (01/26/2024 12:00 AM EST) Anatomical Region Laterality Modality Other Narrative 01/26/2024 12:00 AM EST Ordered by an unspecified provider. Scanning Provider MEDIA MGR SCAN EXT O RDR/RSLT from Last 3 Months Care Teams Geological E Logger Relationship Specialty Start Date End Date Reinier Kenney PA [address] [place] [address] PCP - General Internal Medicine 01/23/24
--- OUTSIDE RECORDS SUMMARY | 2024-03-05 19:16 | XMS_ITS | Encounter Summary ---
Author Organization [facility] Address [facility] [place] [address] Care Team Providers Care Pony Ride Operator Name Role Phone Krystal Kurtz APRN Primary Care Provider [phone] Reason for Referral * Consultation (Routine) - Closed Specialty Diagnoses / Procedures Referred By Contact Referred To Contact Pediatric Gastroenterology Diagnoses Weight loss Chronic abdominal pain Anxiety Cait Alexandre APRN [facility] PEDIATRIC [place] [address] Liset Higgins, PhD [facility] [place] [address] Referral ID Status Reason Start Date Expiration Date V isits Requested Visits Authorized [id number] Closed Specialty Service Requested 2022 2023 1 1 Encounter Details Date Type Department Care Team (Late st Contact Info) Description 2022 Telephone [place] [address] Cait Alexandre APRN [facility] [place] [address] Social History Tobacco Use Types Packs/Day Years [...] with me. Attempted to transfer call to corporate legal secretary to help her with scheduling-however call did not go throughand then call was dropped. Attempted to call Marilu back twice- but unable to get call to go through.Sent message and spoke with corporate legal secretary in person to call Marilu back [...] rescheduled soon. Her call back number is [phone] documented in this encounter Plan of Treatment Scheduled Referrals Name Type Priority Associated Diagnoses Order Schedule Referral to Pediatric Gastroenterology Outpatient Referral Routine Weight loss Chronic abdominal pain Anxiety Ordered: 2022 documented as of this encounter Visit Diagnoses Diagnosis Weight loss Loss of weight Chronic abdominal pain Abdominal pain, unspecified site Anxiety Anxiety state, unspecified documented in this encounter Care Teams Pony Ride Operator Relationship Specialty Start Date End Date Krystal Kurtz APRN PCP - General Family Medicine 09/23/21 01/22/24 documented as of this encounter
--- OUTSIDE RECORDS SUMMARY | 2024-03-05 19:16 | XMS_ITS | Encounter Summary ---
Author Organization [facility] [place] [address] Care Team Providers Care Metal Engineering Process Worker Name Role Phone Krystal Kurtz APRN Primary Care Provider [phone] Encounter Details Date Type Department Care Team [...] on filedocumented in this encounter Care Teams Metal Engineering Process Worker Relationship Specialty Start Date End Date Krystal Kurtz APRN PCP - General Family Medicine 09/23/21 01/22/24 documented as of this encounter
--- OUTSIDE RECORDS SUMMARY | 2024-03-05 19:16 | XMS_ITS | Encounter Summary ---
Author Organization [facility] Address [facility] [place] [address] Care Team Providers Care Qc Chemist Name Role Phone Reinier Kenney Primary Care Provider + Encounter Details Date Type Department Care Team (Late st Contact Info) Description 01/26/2024 7:00 PM EST Ext Surgery or Single Event [facility] [address] [place] [address] Gopi Harkins MD [facility] [place] [address] Palpitations Social History Tobacco Use Types Packs/Day [...] Procedure Name Priority Date/Time Associated Diagnosis Comments AUDITOR TAX SCAN 01/26/2024 12:00 AM EST documented in this encounter Results * Scan Doc: [facility] (01/26/2024 12:00 AM EST) Anatomical Region Laterality Modality Other Narrative 01/26/2024 12:00 AM EST Ordered by an unspecified provider. Scanning Provider MEDIA MGR SCAN EXT O RDR/RSLT documented in this encounter Visit Diagnoses Diagnosis Palpitations documented in this encounter Care Teams Qc Chemist Relationship Specialty Start Date End Date Reinier [place] [address] [place] [address] PCP - General Internal Medicine 01/23/24 documented as of this encounter
--- OUTSIDE RECORDS SUMMARY | 2024-03-05 19:16 | XMS_ITS | Encounter Summary ---
Author Organization [facility] [place] [address] Care Team Providers Care Public Information Director Name Role Phone JerardoChanelleshashank KIRBY Primary Care Provider [phone] Encounter Details Date Type Department Care Team (Late st Contact Info) Description 01/07/2022 10:54 AM EST - 01/07/2022 11:57 AM EST [place] [address] [facility] [place] [address] Not Performed EGD, UPPER GI ENDOSCOPY (WRVU [...] 01/07/2022 10: 35 AM EST Growth Chart: [facility] (Girls, 2- 20 Years) documented in this [...] %ile based on CDC (Girls, 2-20 Years) [id number] data based on Weight recorded on 01/07/2022. 47 %ile based on CDC (Girls, 2-20 Years) [id number] data based on Stature recorded on 01/07/2022. [...] proceed. Jayna Coats DO Pediatric Gastroenterology Pager [phone] documented in this encounter Plan of Treatment [...] RN) documented in this encounter Care Teams Public Information Director Relationship Specialty Start Date End Date Krystal Kurtz APRN PCP - General Family Medicine 09/23/21 01/22/24 documented as of this encounter
--- OUTSIDE RECORDS SUMMARY | 2024-03-05 19:16 | XMS_ITS | Continuity of Care Document ---
Author Organization [facility] Ambulatory Clinics Address [address] [place] [address] Care Team Providers Care Glass Science Engineer Name Role Phone JAMES ELIZABETH Primary Care Physician Encounter [facility] NBR [id number] Date(s): 02/25/24 - 02/25/24 [facility] Ambulatory Clin[facility] [address] [place] [address]- [place] Encounter Diagnosis Abdominal pain(Discharge Diagnosis) - 02/25/24 Abdominal cramping(Discharge Diagnosis) - 02/25/24 Nausea(Discharge Diagnosis) - 02/25/24 Loose stools(Discharge Diagnosis) - 02/25/24 Discharge Disposition: Home or Self Care Attending Physician: Hiwot Pelaez PA-C Encounter Type: Clinic Allergies, Adverse Reactions, Alerts Substance Criticality Severity Reaction Reaction Severity Status penicillin High criticality Moderate Rash Ac tive Assessment and Plan Extracted from: Title:[facility] Urgent Care Office Visit Note Author:Clarissa Pelaez PA-C Date:02/25/24 1.??Abdominal cramping??R10. 9,??Abdominal pain??R10.9 ??Patient presenting with 3 days of intermittent abdominal cramping, nausea, loose stools. ??She has not vomited. ??She has not had a fever.?? She has no focal localized abdominal tenderness on exam. ??I did explain to patient that I cannot rule out more serious intra-abdominal pathology in urgent care without imaging, lab work.?Her abdominal pain has been intermittent, coming and going, waxing and waning, and diffuse throughout the abdomen so I suspect more of a??form of gastroenteritis. ??I did explain to her however that should she develop any severe, localizing abdominal pain especially if associated with vomiting, fever she is to go directly to the emergency department.?? I advised patient continue her antinausea medications as needed.?? She should follow-up bland diet and progress as tolerated. ??Avoid spicy foods, citrus foods, acidic foods,??alcohol, nicotine,??marijuana,??fatty or fried foods.?? Will trial dicyclomine as she??appears to have had benefit with this in the past.?? She understands if not improving that she should follow-up with her PCP or go to the ED if??acutely worsening.?? She will follow-up as needed. ??Urine dip negative?? Ordered: dicyclomine 10 mg/5 mL oral syrup, 20 mg = 10 mL, Oral, QID, # 280 mL, 0 Refill(s), Pharmacy: [facility] #[id number], 162.56, cm, 01/21/24 12:52:00 EST, Height, 45.36, kg, 01/21/24 12:55:00 EST, Weight Dosing ?? 2.??Nausea??R11.0 Ordered: dicyclomine 10 mg/5 mL oral syrup, 20 mg = 10 mL, Oral, QID, # 280 mL, 0 Refill(s), Pharmacy: [facility] #[id number], 162.56, cm, 01/21/24 12:52:00 EST, Height, 45.36, kg, 01/21/24 12:55:00 EST, Weight Dosing ?? 3.??Loose stools??R19.5 Ordered: dicyclomine 10 mg/5 mL oral syrup, 20 mg = 10 mL, Oral, QID, # 280 mL, 0 Refill(s), Pharmacy: [facility] #[id number], 162.56, cm, 01/21/24 12:52:00 EST, Height, 45.36, kg, 01/21/24 12:55:00 EST, Weight Dosing ?? Future Scheduled Tests Radiology* US Transvaginal Non-OB 06/28/23 * CT Abdomen and Pelvis w/ Contrast 08/15/23 Immunizations Given and Recorded Vaccine Date Status Refusal Reason varicella virus vaccine 1 9/8/10 Recorded varicella virus vaccine 2 08/30/05 Recorded [...] Results Laboratory List Name Date .Urinalysis POCT 02/25/24 Most recent to oldest [Reference Range]: 1 Method of Collect POC clean catch *NA* (02/25/24 6:10 PM) Specific Garrison, Ur POC 1.020 *NA* (02/25/24 6:10 PM) Specimen Color POC [Yellow] Yellow (02/25/24 6:10 PM) Glucose, Urine POC Negative mg/dL *NA* (02/25/24 6:10 PM) Bilirubin, Urine POC [Negative] Negative (02/25/24 6:10 PM) Ketones, Urine POC [Negative mg/dL] Nega tive mg/dL (02/25/24 6:10 PM) Blood, Urine POC [Negative] Negative (02/25/24 6:10 PM) pH, Urine POC 7.00 *NA* (02/25/24 6:10 PM) Protein, Urine POC [Negative mg/dL] Trac e mg/dL *ABN* (02/25/24 6:10 PM) Urobilinogen, Urine POC [0.2] 0.2 (02/25/24 6:10 PM) Nitrite, Urine POC [Negative] Negative (02/25/24 6:10 PM) Leuk Esterase, Urine POC [Negative] Nega tive (02/25/24 6:10 PM) Clarity, Urine POC [Clear] Clear (02/25/24 6:10 PM) Vital Signs Most recent to oldest [Reference Range]: 1 Temperature Oral [35.8-37.3 Deg C] 36.8 Deg C (02/25/24 5:59 PM) Peripheral Pulse Rate [60-100 bpm] 97 bp m (02/25/24 5:59 PM) Respiratory Rate [12-24 br/min] 14 br/mi n (02/25/24 5:59 PM) Blood Pressure [90-120/60-80 mmHg] 105/6 7mmHg (02/25/24 5:59 PM) Mean Arterial Pressure, Cuff [65-140 mmH g] 80 mmHg (02/25/24 5:59 PM) Social History Social History Type Response Tobacco Never tobacco user, smokeless tobacco daily Tobacco Use:. Sex Female Sex Representation Female (finding) Hospital Discharge Instructions Patient Education 02/25/2024 17:35:54 Viral Gastroenteritis, Adult, Xaen-ln-Iyzs Viral Gastroenteritis, Adult Viral gastroenteritis is also known as the stomach flu. This condition may affect your stomach, your small intestine, and your large intestine. It can cause sudden watery poop (diarrhea), fever, and vomiting. This condition is caused by certain germs (viruses). These germs can be passed from personto person very easily (are contagious). Having watery poop and vomiting can make you feel weak and cause you to not have enough water in your body (get dehydrated). This can make you tired and thirsty, make you have a dry mouth, and make it so you pee (urinate) less often. It is important to replace the fluids that you lose from having watery poop and vomiting. What are the causes? You can get sick by catching germs from other people. ??? You can also get sick by: ??? Eating food, drinking water, or touching a surface that has the germs on it (is contaminated). ??? Sharing utensils or other personal items with a person who is sick. What increases the risk? Having a weak body defense system (immune system). ??? Living with one or more children who are younger than 2 years. ??? Living in a alf. ??? Going on cruise ships. What are the signs or symptoms? Symptoms of this condition start suddenly. Symptoms may last for a few days or for as long as a week. ??? Common symptoms include: ??? Watery poop. ??? Vomiting. ??? Other symptoms include: ??? Fever. ??? Headache. ??? Feeling tired (fatigue). ??? Pain in the belly (abdomen). ??? Chills. ??? Feeling weak. ??? Feeling like you may vomit (nauseous). ??? Muscle aches. ??? Not feeling hungry. How is this treated? This condition typically goes away on its own. The focus of treatment is to replace the fluids thatyou lose. This condition may be treated with: ??? An ORS (oral rehydration solution). This is a drink that helps you replace fluids and minerals your body lost. It is sold at pharmacies and stores. ??? Medicines to help with your symptoms. ??? Probiotic supplements to reduce symptoms of watery poop. ??? Fluids given through an IV tube, if needed. Older adults and people with other diseases or a weak body defense system are at higher risk for not having enough water in the body. Follow these instructions at home: Eating and drinking ??? Take an ORS as told by your doctor. ??? Drink clear fluids in small amounts as you are able. Clear fluids include: ??? Water. ??? Ice chips. ??? Fruit juice that has water added to it (is diluted). ??? Low-calorie sports drinks. ??? Drink enough fluid to keep your pee (urine) pale yellow. ??? Eat small amounts of healthy foods every 3???4 hours as you are able. This may include whole grains, fruits, vegetables, lean meats, and yogurt. ??? Avoid fluids that have a lot of sugar or caffeine in them. This includes energy drinks, sports drinks, and soda. ??? Avoid spicy or fatty foods. ??? Avoid alcohol. General instructions ??? Wash your hands often. This is very important after you have watery poop or you vomit. If you cannot use soap and water, use hand reel cart operator. ??? Make sure that all people in your home wash their hands well and often. ??? Take yber-rfb-vudulrw and prescription medicines only as told by your doctor. ??? Rest at home while you get better. ??? Watch your condition for any changes. ??? Take a warm bath to help with any burning or pain from having watery poop. ??? Keep all follow-up visits. Contact a doctor if: ??? You cannot keep fluids down. ??? Your symptoms get worse. ??? You have new symptoms. ??? You feel light-headed or dizzy. ??? You have muscle cramps. Get help right away if: ??? You have chest pain. ??? You have trouble breathing, or you are breathing very fast. ??? You have a fast heartbeat. ??? You feel very weak or you faint. ??? You have a very bad headache, a stiff neck, or both. ??? You have a rash. ??? You have very bad pain, cramping, or bloating in your belly. ??? Your skin feels cold and clammy. ??? You feel mixed up (confused). ??? You have pain when you pee. ??? You have signs of not having enough water in the body, such as: ??? Dark pee, hardly any pee, or no pee. ??? Cracked lips. ??? Dry mouth. ??? Sunken eyes. ??? Feeling very sleepy. ??? Feeling weak. ??? You have signs of bleeding, such as: ??? You see blood in your vomit. ??? Your vomit looks like coffee grounds. ??? You have bloody or black poop or poop that looks like tar. These symptoms may be an emergency. Get help right away. Call 911. ??? Do not wait to see if the symptoms will go away. ??? Do not drive yourself to the hospital. Summary ??? Viral gastroenteritis is also known as the stomach flu. ??? This condition can cause sudden watery poop (diarrhea), fever, and vomiting. ??? These germs can be passed from person to person very easily. ??? Take an ORS (oral rehydration solution) as told by your doctor. This is a drink that is sold atpREBIScan and Hepa Wash. ??? Wash your hands often, especially after having watery poop or vomiting. If you cannot use soap and water, use hand reel cart operator. This information is not intended to replace advice given to you by your health care provider. Make sure you discuss any questions you have with your health care provider. Document Revised: 11/26/2021 Document Reviewed: 11/26/2021 [employer] Patient Education ?? 2022 [employer]. 02/25/2024 17:35:51 Food Choices to Help Relieve Diarrhea, Adult [...] care provider. Replacing nutrients ??? Eat bland, pwos-qy-klnxie foods in small amounts as you are [...] provider. Document Revised: 07/16/2022 Document Reviewed: 07/16/2022 [employer] Patient Education ?? 2022 [employer] Physician Outpatient Note * Hiwot Pelaez PA-C: PERFORM Event Display: Office Clinic Note Physician Authored Date: [id number] JOSE ROBERTO BALBUENA :2005 Age:19 years Sex:Female Visit Date:02/25/2024 Primary Care Physician: JAMES ELIZABETH Chief Complaint pt states 3 days of stomach pain that is making her nauseous. upper abd pain. sour stomach and unable to eat. LMP 02/12/24 History of Present Illness This is a 19-year-old female who presents for evaluation of abdominal??pain.?? Patient reports thatfor the past 3 days she has been dealing with crampy abdominal pain, diffuse across her entire abdomen,??that is coming and going.?? It has not been severe??but it has been associated with persistentnausea but no vomiting. ??She has also had 2-3 episodes of nonbloody loose stools throughout the day.?? She has not had any fever, chills.?? She is feeling fatigued. ??Denies body aches.?? She has taken Pepto-Bismol as well as Zofran. ??Zofran is helping her nausea.?? She has never had surgery in the abdomen before. ??She denies any pelvic pain or urinary symptoms.?She denies any recent antibiotic use Physical Exam Vitals & Measurements T:??36.8?C ??(Oral)?? HR:??97??(Peripheral)?? RR:??14?? BP:??105/67?? SpO2:??100%?? General: A&O x 3, well-built and hydrated, no acute distress Eyes: PERRLA, no redness or drainage Neck: supple, no lymphadenopathy Chest: symmetric rise Heart: normal S1S2, no murmurs, rubs, gallops Lungs: equal and symmetric respiratory effort, lungs clear to auscultation without wheezes, rales, rhonchi Abdomen: soft, non-distended, bowel sounds normoactive,??mild diffuse tenderness that does not localize, no rebound, guarding, rigidity Assessment/Plan 1.??Abdominal cramping??R10.9,??Abdominal pain??R10.9 ??Patient presenting with 3 days of intermittent abdominal cramping, nausea, loose stools. ??She has not vomited. ??She has not had a fever.?? She has no focal localized abdominal tenderness on exam.??I did explain to patient that I cannot rule out more serious intra-abdominal pathology in urgent care without imaging, lab work.?Her abdominal pain has been intermittent, coming and going, waxing and waning, and diffuse throughout the abdomen so I suspect more of a??form of gastroenteritis. ??I did explain to her however that should she develop any severe, localizing abdominal pain especially if associated with vomiting, fever she is to go directly to the emergency department.?? I advised p atient continue her antinausea medications as needed.?? She should follow-up bland diet and progress as tolerated. ??Avoid spicy foods, citrus foods, acidic foods,??alcohol, nicotine,??marijuana,??fatty or fried foods.?? Will trial dicyclomine as she??appears to have had benefit with this in the past.?? She understands if not improving that she should follow-up with her PCP or go to the ED if??acutely worsening.?? She will follow-up as needed. ??Urine dip negative?? Ordered: dicyclomine 10 mg/5 mL oral syrup, 20 mg = 10 mL, Oral, QID, # 280 mL, 0 Refill(s), Pharmacy: [facility] #[id number], 162.56, cm, 01/21/24 12:52:00 EST, Height, 45.36, kg, 01/21/24 12:55:00 EST, Weight Dosing ?? 2.??Nausea??R11.0 Ordered: dicyclomine 10 mg/5 mL oral syrup, 20 mg = 10 mL, Oral, QID, # 280 mL, 0 Refill(s), Pharmacy: [facility] #[id number], 162.56, cm, 01/21/24 12:52:00 EST, Height, 45.36, kg, 01/21/24 12:55:00 EST, Weight Dosing ?? 3.??Loose stools??R19.5 Ordered: dicyclomine 10 mg/5 mL oral syrup, 20 mg = 10 mL, Oral, QID, # 280 mL, 0 Refill(s), Pharmacy: [facility] #[id number], 162.56, cm, 01/21/24 12:52:00 EST, Height, 45.36, kg, 01/21/24 12:55:00 EST, Weight Dosing ?? Patient Instructions You were evaluated for abdominal pain, nausea, and loose stools today. ??I suspect that you have??some form of viral gastroenteritis, which is currently circulating through the community. ??As we discussed, however I am unable to rule out??more serious intra-abdominal pathology such as??appendicitis.?? For this reason, should you develop any severe, localizing right lower quadrant??pain or??pain anywhere in the belly especially if associated with??vomiting, fever??it is important that you go tothe emergency department.?? I have sent a prescription for dicyclomine for you to try in the meantime to see if this can help alleviate your belly cramping. ??You can continue to take your antinauseamedications as prescribed.?? Try to push small sips of fluid throughout the day.?? Follow a bland diet such as the brat diet and progress as tolerated.?? Please go to the emergency department if worsening Patient Education Viral Gastroenteritis, Adult, Buru-xt-Penm Food Choices to Help Relieve Diarrhea, Adult Problem List/Past Medical History Ongoing Amenorrhea Anxiety Decrease in appetite Epigastric pain Lipoma of abdominal wall Loss of taste Major depression, single episode Menometrorrhagia Nausea Patient encounter status Tonsillitis Historical No qualifying data Medications busPIRone 5 mg oral tablet Depo-Provera Contraceptive 150 mg/mL intramuscular suspension dicyclomine 10 mg/5 mL oral syrup, 20 mg= 10 mL, Oral, QID FLUoxetine hydrOXYzine hyoscyamine Medrol Dosepak 4 mg [...] Date/Time Method of Collect POC clean catch 02/25/2024 18:10 EST Specimen Color POC Yellow 02/25/2024 18:10 EST Clarity, Urine POC Clear 02/25/2024 18:10 EST Glucose, Urine POC Negative 02/25/2024 18:10 EST Bilirubin, Urine POC Negative 02/25/2024 18:10 EST Ketones, Urine POC Negative 02/25/2024 18:10 EST Specific Garrison, Ur POC 1.020 02/25/2024 18:10 EST pH, Urine POC 7.00 02/25/2024 18:10 EST Protein, Urine POC Trace 02/25/2024 18:10 EST Urobilinogen, Urine POC 0.2 02/25/2024 18:10 EST Nitrite, Urine POC Negative 02/25/2024 18:10 EST Blood, Urine POC Negative 02/25/2024 18:10 EST Leuk Esterase, Urine POC Negative 02/25/2024 18:10 EST Electronically Signed on 02/25/2024 18:57 EST Hiwot Pelaez PA-C Outpatient Summary note * Hiwot Pelaez PA-C: PERFORM Event Display: Ambulatory Patient Summary Authored Date: [id number] JOSE ROBERTO BALBUENA :2005 Age:19 years Sex:Female Visit Date:02/25/2024 Primary Care Physician: JAMES ELIZABETH Ambulatory Visit Instructions We would like to thank you for allowing us to assist you with your healthcare needs. The following includes patient education materials and information regarding your injury/illness. Your Next Steps Instructions From Your Care Team You were evaluated for abdominal pain, nausea, and loose stools today. ??I suspect that you have??some form of viral gastroenteritis, which is currently circulating through the community. ??As we discussed, however I am unable to rule out??more serious intra-abdominal pathology such as??appendicitis.?? For this reason, should you develop any severe, localizing right lower quadrant??pain or??pain anywhere in the belly especially if associated with??vomiting, fever??it is important that you go tothe emergency department.?? I have sent a prescription for dicyclomine for you to try in the meantime to see if this can help alleviate your belly cramping. ??You can continue to take your antinauseamedications as prescribed.?? Try to push small sips of fluid throughout the day.?? Follow a bland diet such as the brat diet and progress as tolerated.?? Please go to the emergency department if worsening Medications What How Much When Why Instructions New dicyclomine (dicyclomine 10 mg/ 5 mL oral syrup) 10 Milliliters Oral (given by mouth) 4 times a day Abdominal cramping Nausea Loose stools Duration: 7 Days Pickup at [facility] #[id number] Unchanged azithromycin (Zithromax Z-Nicholas 250 mg oral [...] a day Influenza-like illness Pharmacy Information [facility] #[id number]: [address], [place] [phone] Your Summary Your Diagnosis Abdominal cramping Nausea Loose stools Abdominal pain Problems Ongoing - Any problem that you are currently receiving treatment for. Amenorrhea Anxiety Decrease in appetite Epigastric pain Lipoma of abdominal wall Loss of taste Major depression, single episode Menometrorrhagia Nausea Patient encounter status Tonsillitis Outstanding Tests .Urinalysis POCT Tests Performed Test Name Test Result Date/Time Method of Collect POC clean catch 02/25/2024 18:10 EST Specimen Color POC Yellow 02/25/2024 18:10 EST Clarity, Urine POC Clear 02/25/2024 18:10 EST Glucose, Urine POC Negative 02/25/2024 18:10 EST Bilirubin, Urine POC Negative 02/25/2024 18:10 EST Ketones, Urine POC Negative 02/25/2024 18:10 EST Specific Garrison, Ur POC 1.020 02/25/2024 18:10 EST pH, Urine POC 7.00 02/25/2024 18:10 EST Protein, Urine POC Trace 02/25/2024 18:10 EST Urobilinogen, Urine POC 0.2 02/25/2024 18:10 EST Nitrite, Urine POC Negative 02/25/2024 18:10 EST Blood, Urine POC Negative 02/25/2024 18:10 EST Leuk Esterase, Urine POC Negative 02/25/2024 18:10 EST Your Care Team Attending Physician - Hiwot Pelaez PA-C Primary Care Physician - JAMES ELIZABETH Discharge Vitals Temperature??(Oral) 98.2 ??F (36.8 ??C) Heart Rate??(Peripheral) 97 Respiratory Rate?? 14 Blood Pressure?? 105/67?? SpO2?? 100% Allergies penicillin??(Rash) Education Materials Viral Gastroenteritis, Adult Viral gastroenteritis is also known as the stomach flu. This condition may affect your stomach, your small intestine, and your large intestine. It can cause sudden watery poop (diarrhea), fever, and vomiting. This condition is caused by certain germs (viruses). These germs can be passed from personto person very easily (are contagious). Having watery poop and vomiting can make you feel weak and cause you to not have enough water in your body (get dehydrated). This can make you tired and thirsty, make you have a dry mouth, and make it so you pee (urinate) less often. It is important to replace the fluids that you lose from having watery poop and vomiting. What are the causes? You can get sick by catching germs from other people. ? You can also get sick by: ? Eating food, drinking water, or touching a surface that has the germs on it (is contaminated). ? Sharing utensils or other personal items with a person who is sick. What increases the risk? Having a weak body defense system (immune system). ? Living with one or more children who are younger than 2 years. ? Living in a alf. ? Going on cruise ships. What are the signs or symptoms? Symptoms of this condition start suddenly. Symptoms may last for a few days or for as long as a week. ? Common symptoms include: ? Watery poop. ? Vomiting. ? Other symptoms include: ? Fever. ? Headache. ? Feeling tired (fatigue). ? Pain in the belly (abdomen). ? Chills. ? Feeling weak. ? Feeling like you may vomit (nauseous). ? Muscle aches. ? Not feeling hungry. How is this treated? This condition typically goes away on its own. The focus of treatment is to replace the fluids thatyou lose. This condition may be treated with: ? An ORS (oral rehydration solution). This is a drink that helps you replace fluids and minerals yourbody lost. It is sold at pharmacies and stores. ? Medicines to help with your symptoms. ? Probiotic supplements to reduce symptoms of watery poop. ? Fluids given through an IV tube, if needed. Older adults and people with other diseases or a weak body defense system are at higher risk for not having enough water in the body. Follow these instructions at home: Eating and drinking ? Take an ORS as told by your doctor. ? Drink clear fluids in small amounts as you are able. Clear fluids include: ? Water. ? Ice chips. ? Fruit juice that has water added to it (is diluted). ? Low-calorie sports drinks. ? Drink enough fluid to keep your pee (urine) pale yellow. ? Eat small amounts of healthy foods every 3???4 hours as you are able. This may include whole grains, fruits, vegetables, lean meats, and yogurt. ? Avoid fluids that have a lot of sugar or caffeine in them. This includes energy drinks, sports drinks, and soda. ? Avoid spicy or fatty foods. ? Avoid alcohol. General instructions ? Wash your hands often. This is very important after you have watery poop or you vomit. If you cannot use soap and water, use hand reel cart operator. ? Make sure that all people in your home wash their hands well and often. ? Take sftf-vlf-vvgvfat and prescription medicines only as told by your doctor. ? Rest at home while you get better. ? Watch your condition for any changes. ? Take a warm bath to help with any burning or pain from having watery poop. ? Keep all follow-up visits. Contact a doctor if: ? You cannot keep fluids down. ? Your symptoms get worse. ? You have new symptoms. ? You feel light-headed or dizzy. ? You have muscle cramps. Get help right away if: ? You have chest pain. ? You have trouble breathing, or you are breathing very fast. ? You have a fast heartbeat. ? You feel very weak or you faint. ? You have a very bad headache, a stiff neck, or both. ? You have a rash. ? You have very bad pain, cramping, or bloating in your belly. ? Your skin feels cold and clammy. ? You feel mixed up (confused). ? You have pain when you pee. ? You have signs of not having enough water in the body, such as: ? Dark pee, hardly any pee, or no pee. ? Cracked lips. ? Dry mouth. ? Sunken eyes. ? Feeling very sleepy. ? Feeling weak. ? You have signs of bleeding, such as: ? You see blood in your vomit. ? Your vomit looks like coffee grounds. ? You have bloody or black poop or poop that looks like tar. These symptoms may be an emergency. Get help right away. Call 911. ? Do not wait to see if the symptoms will go away. ? Do not drive yourself to the hospital. Summary ? Viral gastroenteritis is also known as the stomach flu. ? This condition can cause sudden watery poop (diarrhea), fever, and vomiting. ? These germs can be passed from person to person very easily. ? Take an ORS (oral rehydration solution) as told by your doctor. This is a drink that is sold at pharmacies and stores. ? Wash your hands often, especially after having watery poop or vomiting. If you cannot use soap and water, use hand reel cart operator. This information is not intended to replace advice given to you by your health care provider. Make sure you discuss any questions you have with your health care provider. Document Revised: 11/26/2021 Document Reviewed: 11/26/2021 [employer] Patient Education ?? 2022 [employer] Food Choices to Help Relieve Diarrhea, [...] care provider. Replacing nutrients ? Eat bland, ckul-as-ygjpll foods in small amounts as you are [...] provider. Document Revised: 07/16/2022 Document Reviewed: 07/16/2022 [employer] Patient Education ?? 2022 [employer] Electronically Signed on: 02/25/2024 18:36 ESTSigned by:ELFEGO Patient Care team information Care Team Personnel Name: Krystal Kurtz APRN Position: Physician Member Role: Nurse Practitioner Address: [address] [place] [address]- [place] Telecom: Name: JAMES ELIZABETH Position: No Access Member Role: Primary Care Physician Address: [facility] [address] [place] [address]- [place] Telecom: Care Team Related Persons Name: FAIZA BALBUENA Insurance Providers Guarantor name: [facility] Health Plan Information #: 1 Payer: [place] Member Number: [id number] Policy Number: NA Group Number: NA Health Plan Information #: 2 Payer: [place] Member Number: [id number] Policy Number: NA Group Number: NA Health Plan Information #: 3 Payer: [place] Member Number: [id number] Policy Number: NA Group Number: NA
--- OUTSIDE RECORDS SUMMARY | 2024-03-05 19:16 | XMS_ITS | Encounter Summary ---
Author Organization [place] [address] Care Team Providers Care Taproom Attendant Name Role Phone Krystal Kurtz APRN Primary Care Provider [phone] Reason for Referral * Consultation (Urgent) - Closed Specialty Diagnoses / Procedures Referred By Contac t Referred To Contact Gastroenterology Diagnoses Rectal bleeding Abdominal pain, unspecified abdominal location Barbara Orourke APRN [address] [place] [address] [facility] [address] [place] [address] Referral ID Status Reason Start Date Expiration Date V isits Requested Visits Authorized [id number] Closed Consult, Test & Treat 12/21/2021 12/21/2022 6 6 Encounter Details Date Type Department Care Team (Latest Contact Info) Description 12/21/2021 Transcribe Orders eDH Incoming Referrals [phone] Barbara Orourke APRN [address] [place] [address] Rectal bleeding; Abdominal pain, unspecified [...] location documented in this encounter Care Teams Taproom Attendant Relationship Specialty Start Date End Date Krystal Kurtz APRN PCP - General Family Medicine 09/23/21 01/22/24 documented as of this encounter
--- OUTSIDE RECORDS SUMMARY | 2024-03-05 19:16 | XMS_ITS | Encounter Summary ---
Author Organization [facility]ly [facility] [place] [address] Care Team Providers Care Pararescue Craftsman Name Role Phone Krystal Kurtz APRN Primary Care Provider [phone] Encounter Details Date Type Department Care Team (Late st Contact Info) Description 06/10/2022 Telephone Pediatric [place] [id number] Bartolome Gonzales Social History Tobacco Use Types [...] on filedocumented in this encounter Care Teams Pararescue Craftsman Relationship Specialty Start Date End Date Krystal Kurtz APRN PCP - General Family Medicine 09/23/21 01/22/24 documented as of this encounter
--- OUTSIDE RECORDS SUMMARY | 2024-03-05 19:16 | XMS_ITS | Encounter Summary ---
Author Organization [facility] Address [facility] [place] [address] Care Team Providers Care Grease Maker Head Name Role Phone Krystal Kurtz APRN Primary Care Provider [phone] Encounter Details Date Type Department Care Team (Late st Contact Info) Description 12/21/2021 Transcribe Orders eDH Incoming Referrals [phone] Barbara Orourke, SHELL COREMAKER [address] [place], [place] [address] Social History Tobacco Use Types Packs/Day Years Used Date Smoking Tobacco: Never Assessed Sex and Gender Information Value Date Recorded Sex Assigned at Not on file Gender Identity Not on file Sexual Orientation Not on file documented as of this encounter Plan of Treatment Not on file documented as of this encounter Visit Diagnoses Not on filedocumented in this encounter Care Teams Grease Maker Head Relationship Specialty Start Date End Date Krystal Kurtz APRN PCP - General Family Medicine 09/23/21 01/22/24 documented as of this encounter
--- OUTSIDE RECORDS SUMMARY | 2024-03-05 19:16 | XMS_ITS | Encounter Summary ---
Author Organization Formerly [facility] Address [facility] [place] [address] Care Team Providers Care Kettle Loader Name Role Phone Krystal Kurtz APRN Primary Care Provider Reason for Visit * Consultation (Routine) - Closed Specialty Diagnoses / Procedures Referred By Contact Referred To Contact Pediatric Gastroenterology Diagnoses Weight loss Chronic abdominal pain Anxiety Cait Alexandre APRN [facility] [place] [address] Liset Higgins, PhD [facility] [place] [address] Referral ID Status Reason Start Date Expiration Date V isits Requested Visits Authorized [id number] Closed Specialty Service Requested 2022 2023 1 1 Encounter Details Date Type Department Care Team (Latest Contact Info) Description 06/07/2022 9:00 AM EDT TH Visit (TeleHealth) Pediatric [place] [address] Liset Higgins, PhD PATIENT NOT SEEN Social [...] SEEN documented in this encounter Care Teams Kettle Loader Relationship Specialty Start Date End Date Krystal Kurtz APRN PCP - General Family Medicine 09/23/21 01/22/24 documented as of this encounter
--- OUTSIDE RECORDS SUMMARY | 2024-03-05 19:16 | XMS_ITS | Encounter Summary ---
Author Organization [facility] Address [facility] [place] [address] Care Team Providers Care Aquaculture Director Name Role Phone Krystal Kurtz APRN Primary Care Provider [phone] Encounter Details Date Type Department Care Team (Late st Contact Info) Description 06/19/2023 Telephone Obstetrics [place] [address] Mira Irizarry Social History Tobacco [...] on filedocumented in this encounter Care Teams Aquaculture Director Relationship Specialty Start Date End Date Krystal Kurtz APRN PCP - General Family Medicine 09/23/21 01/22/24 documented as of this encounter
--- OUTSIDE RECORDS SUMMARY | 2024-03-05 19:17 | XMS_ITS | Encounter Summary ---
Author Organization [facility] Address [address] [place] [address] Care Team Providers Care Package Crimper Name Role Phone Unavailable Primary Care Provider Unavailabl e Encounter Details Date Type Department Care Team (Late st Contact Info) Description 05/02/2022 Lab Requisition [facility] Pathology & Laboratory Medicine - [facility] [address] [place] [address] Outr Resulting Lab, Provider Social History Tobacco [...] gonorrhoeae Result Negative Negative 05/03/2022 13:50 EDT [facility] Chlamydia trachomatis Result Negative Negative 05/03/2022 13:50 EDT [facility] Urine URINE / Unknown 05/02/2022 1 0:30 EDT 05/02/2022 21:42 EDT Narrative [facility] - 05/03/2022 13:50 EDT A first catch urine specimen is acceptable for detection of Gonorrhea and Chlamydia, but might detect up to 10% fewer infections when compared with vaginal and endocervical swab samples. us Provider Outr Resulting Lab MICROBIOLOGY - GENER AL ORDERABLES Final Result [facility] [address] [place] [address] documented in this encounter Visit Diagnoses Not on filedocumented in this encounter
--- OUTSIDE RECORDS SUMMARY | 2024-03-05 19:17 | XMS_ITS | Encounter Summary ---
Author Organization [facility] Address [address] [place] [address] Care Team Providers Care Critical Care Cns Name Role Phone Unavailable Primary Care Provider Unavailabl e Encounter Details Date Type Department Care Team (Late st Contact Info) Description 02/18/2024 Lab Requisition [facility] Pathology & Laboratory Medicine - [facility] [address] [place] [address] Outr Resulting Lab, Provider Social History Tobacco [...] AMPLIFIED NUCLEIC ACID Routine 02/17/2024 15:05 EST documented in this encounter Results * CHLAMYDIA/N. GONORRHOEAE AMPLIFIED NUCLEIC ACID (02/17/2024 15:05 EST) Neisseria gonorrhoeae Result Negative Negative 02/19/2024 12:05 EST [facility] Chlamydia trachomatis Result Negative Negative 02/19/2024 12:05 EST [facility] Urine URINE / Unknown 02/17/2024 1 5:05 EST 02/18/2024 18:19 EST Narrative [facility] - 02/19/2024 12:05 EST A first catch urine specimen is acceptable for detection of Gonorrhea and Chlamydia, but might detect up to 10% fewer infections when compared with vaginal swab samples. us Provider Outr Resulting Lab MICROBIOLOGY - GENER AL ORDERABLES Final Result Performing Organization Address [facility]/State/ZIP Co de Phone Number [facility] [address] [place] [address] documented in this encounter Visit Diagnoses Not on filedocumented in this encounter
--- OUTSIDE RECORDS SUMMARY | 2024-03-05 19:17 | XMS_ITS | Encounter Summary ---
Author Organization [facility] Address [address] [place] [address] Care Team Providers Care Fish Hatchery Man Name Role Phone Unavailable Primary Care Provider Unavailabl e Encounter Details Date Type Department Care Team (Late st Contact Info) Description 04/15/2022 Lab Requisition [facility] Pathology & Laboratory Medicine - [facility] [address] [place] [address] Outr Resulting Lab, Provider Social History Tobacco [...] gonorrhoeae Result Negative Negative 04/16/2022 13:12 EST [facility] Chlamydia trachomatis Result Negative Negative 04/16/2022 13:12 EST [facility] Swab ENTIRE VAGINA / Unknown 04/14/2022 12:06 EST 04/15/2022 17:25 EST us Provider Outr Resulting Lab MICROBIOLOGY - GENER AL ORDERABLES Final Result [facility] [address] [place] [address] documented in this encounter Visit Diagnoses Not on filedocumented in this encounter
--- OUTSIDE RECORDS SUMMARY | 2024-03-05 19:17 | XMS_ITS | Encounter Summary ---
Author Organization [facility] Address [address] [place] [address] Care Team Providers Care Mobile Sales Technician Name Role Phone Unavailable Primary Care Provider Unavailabl e Encounter Details Date Type Department Care Team (Late st Contact Info) Description 02/04/2024 Lab Requisition [facility] Pathology & Laboratory Medicine - [facility] [address] [place], [place] [address] Outr Resulting Lab, Provider Social History Tobacco [...] Procedure Name Priority Date/Time Associated Diagnosis Comments HIV 1/2 ANTIGEN AND ANTIBODY, 4TH GENERATION Routine 02/03/2024 10:10 EST documented in this encounter Results * HIV 1/2 ANTIGEN AND ANTIBODY, 4TH GENERATION (02/03/2024 10:10 EST) HIV 1 and 2 Antibody/p24 Antigen, 4th Generation Negative Negative 02/06/2024 10:17 EST [facility] Comment:If acute HIV-1 infec tion is suspected in a high risk patient, submit plasma specimen for HIV-1 RNA quantitation test. Blood VENOUS BLOOD / Unknown 02/03/2024 10:10 EST 02/05/2024 17:13 EST Narrative [facility] - 02/06/2024 10:17 EST Fourth Generation assay performed on the Siemens Centaur XPT. us Provider Outr Resulting Lab IMMUNOLOGY AND SEROL OGY ORDERABLES Final Result [facility] [address] [place] [address] documented in this encounter Visit Diagnoses Not on filedocumented in this encounter
--- OUTSIDE RECORDS SUMMARY | 2024-03-05 19:17 | XMS_ITS | Encounter Summary ---
Author Organization [facility] Address [address] [place] [address] Care Team Providers Care Medical Secretary Teacher Name Role Phone Unavailable Primary Care Provider Unavailabl e Encounter Details Date Type Department Care Team (Late st Contact Info) Description 09/23/2023 Lab Requisition [facility] Pathology & Laboratory Medicine - [facility] [address] [place] [address] Outr Resulting Lab, Provider Social History Tobacco [...] gonorrhoeae Result Negative Negative 09/24/2023 11:51 EDT [facility] Chlamydia trachomatis Result Negative Negative 09/24/2023 11:51 EDT [facility] Urine URINE / Unknown 09/23/2023 1 0:30 EDT 09/23/2023 19:27 EDT Narrative [facility] - 09/24/2023 11:51 EDT A first catch urine specimen is acceptable for detection of Gonorrhea and Chlamydia, but might detect up to 10% fewer infections when compared with vaginal swab samples. us Provider Outr Resulting Lab MICROBIOLOGY - GENER AL ORDERABLES Final Result [facility] [address] [place] [address] documented in this encounter Visit Diagnoses Not on filedocumented in this encounter
--- OUTSIDE RECORDS SUMMARY | 2024-03-05 19:17 | XMS_ITS | Encounter Summary ---
Author Organization [facility] Address [address] [place] [address] Care Team Providers Care Almond Roaster Name Role Phone Unavailable Primary Care Provider Unavailabl e Encounter Details Date Type Department Care Team (Late st Contact Info) Description 08/06/2021 Lab Requisition [facility] Pathology & Laboratory Medicine - [facility] [address] [place] [address] Outr Resulting Lab, Provider Social History Tobacco [...] gonorrhoeae Result Negative Negative 08/08/2021 12:47 EDT [facility] Chlamydia trachomatis Result Negative Negative 08/08/2021 12:47 EDT [facility] Swab ENTIRE WALL OF CERVIX / Unknown 08/06/2021 2:10 EDT 08/06/2021 17:41 EDT us Provider Outr Resulting Lab MICROBIOLOGY - GENER AL ORDERABLES Final Result [facility] [address] [place] [address] documented in this encounter Visit Diagnoses Not on filedocumented in this encounter
--- OUTSIDE RECORDS SUMMARY | 2024-03-05 19:17 | XMS_ITS | Encounter Summary ---
Author Organization [facility] Address [address] [place] [address] Care Team Providers Care Health Spa Manager Name Role Phone Unavailable Primary Care Provider Unavailabl e Encounter Details Date Type Department Care Team (Late st Contact Info) Description 09/13/2021 Lab Requisition [facility] Pathology & Laboratory Medicine - [facility] [address] [place] [address] Outr Resulting Lab, Provider Social History Tobacco [...] gonorrhoeae Result Negative Negative 09/14/2021 15:16 EDT [facility] Chlamydia trachomatis Result Negative Negative 09/14/2021 15:16 EDT [facility] Urine URINE / Unknown 09/12/2021 1 4:40 EDT 09/13/2021 17:10 EDT Narrative [facility] - 09/14/2021 15:16 EDT A first catch urine specimen is acceptable for detection of Gonorrhea and Chlamydia, but might detect up to 10% fewer infections when compared with vaginal and endocervical swab samples. us Provider Outr Resulting Lab MICROBIOLOGY - GENER AL ORDERABLES Final Result [facility] [address] [place] [address] documented in this encounter Visit Diagnoses Not on filedocumented in this encounter
--- OUTSIDE RECORDS SUMMARY | 2024-03-05 19:17 | XMS_ITS | Encounter Summary ---
Author Organization [facility] Address [address] [place] [address] Care Team Providers Care Campground Hand Name Role Phone Unavailable Primary Care Provider Unavailabl e Encounter Details Date Type Department Care Team (Late st Contact Info) Description 09/10/2021 Lab Requisition [facility] Pathology & Laboratory Medicine - [facility] [address] [place] [address] Outr Resulting Lab, Provider Social History Tobacco [...]
--- OUTSIDE RECORDS SUMMARY | 2024-03-05 19:17 | XMS_ITS | Encounter Summary ---
Author Organization [facility] Address [address] [place] [address] Care Team Providers Care Link Wire Fabric Machine Tender Name Role Phone Unavailable Primary Care Provider Unavailabl e Encounter Details Date Type Department Care Team (Late st Contact Info) Description 02/12/2023 Lab Requisition [facility] Pathology & Laboratory Medicine - [facility] [address] [place] [address] Outr Resulting Lab, Provider Social History Tobacco [...] gonorrhoeae Result Negative Negative 02/13/2023 14:24 EST [facility] Chlamydia trachomatis Result Negative Negative 02/13/2023 14:24 EST [facility] Urine URINE / Unknown 02/12/2023 1 1:14 EST 02/12/2023 18:42 EST Narrative [facility] - 02/13/2023 14:24 EST A first catch urine specimen is acceptable for detection of Gonorrhea and Chlamydia, but might detect up to 10% fewer infections when compared with vaginal and endocervical swab samples. us Provider Outr Resulting Lab MICROBIOLOGY - GENER AL ORDERABLES Final Result [facility] [address] [place] [address] documented in this encounter Visit Diagnoses Not on filedocumented in this encounter
--- OUTSIDE RECORDS SUMMARY | 2024-03-05 19:17 | XMS_ITS | Encounter Summary ---
Author Organization [facility] Address [address] [place] [address] Care Team Providers Care Senior Genetic Counselor Name Role Phone Unavailable Primary Care Provider Unavailabl e Encounter Details Date Type Department Care Team (Late st Contact Info) Description 06/12/2023 Lab Requisition [facility] Pathology & Laboratory Medicine - [facility] [address] [place] [address] Outr Resulting Lab, Provider Social History Tobacco [...] gonorrhoeae Result Negative Negative 06/13/2023 14:32 EDT [facility] Chlamydia trachomatis Result Negative Negative 06/13/2023 14:32 EDT [facility] Urine URINE / Unknown 06/11/2023 1 2:20 EDT 06/12/2023 17:34 EDT Narrative [facility] - 06/13/2023 14:32 EDT A first catch urine specimen is acceptable for detection of Gonorrhea and Chlamydia, but might detect up to 10% fewer infections when compared with vaginal and endocervical swab samples. us Provider Outr Resulting Lab MICROBIOLOGY - GENER AL ORDERABLES Final Result [facility] [address] [place] [address] documented in this encounter Visit Diagnoses Not on filedocumented in this encounter
--- OUTSIDE RECORDS SUMMARY | 2024-03-05 19:17 | XMS_ITS | Encounter Summary ---
Author Organization [facility] Address [address] [place] [address] Care Team Providers Care Tub Rider Name Role Phone Unavailable Primary Care Provider Unavailabl e Encounter Details Date Type Department Care Team (Late st Contact Info) Description 10/15/2021 Lab Requisition [facility] Pathology & Laboratory Medicine - [facility] [address] [place] [address] Outr Resulting Lab, Provider Social History Tobacco [...] gonorrhoeae Result Negative Negative 10/17/2021 15:34 EDT [facility] Chlamydia trachomatis Result Negative Negative 10/17/2021 15:34 EDT [facility] Swab ENTIRE WALL OF CERVIX / Unknown 10/14/2021 21:25 EDT 10/16/2021 16:48 EDT us Provider Outr Resulting Lab MICROBIOLOGY - GENER AL ORDERABLES Final Result [facility] [address] [place] [address] documented in this encounter Visit Diagnoses Not on filedocumented in this encounter
--- OUTSIDE RECORDS SUMMARY | 2024-03-05 19:17 | XMS_ITS | Encounter Summary ---
Author Organization [facility] Address [address] [place] [address] Care Team Providers Care Relations Specialist Name Role Phone Unavailable Primary Care Provider Unavailabl e Encounter Details Date Type Department Care Team (Late st Contact Info) Description 03/14/2023 Lab Requisition [facility] Pathology & Laboratory Medicine - [facility] [address] [place] [address] Outr Resulting Lab, Provider Social History Tobacco [...] gonorrhoeae Result Negative Negative 03/15/2023 15:31 EST [facility] Chlamydia trachomatis Result Negative Negative 03/15/2023 15:31 EST [facility] Swab VAGINAL STRUCTURE / Unknown 03/14/2023 10:00 EST 03/14/2023 21:35 EST us Provider Outr Resulting Lab MICROBIOLOGY - GENER AL ORDERABLES Final Result [facility] [address] [place] [address] documented in this encounter Visit Diagnoses Not on filedocumented in this encounter
--- OUTSIDE RECORDS SUMMARY | 2024-03-05 19:17 | XMS_ITS | Encounter Summary ---
Author Organization [facility] Address [address] [place] [address] Care Team Providers Care Principal Electrical Engineer Name Role Phone Unavailable Primary Care Provider Unavailabl e Encounter Details Date Type Department Care Team (Late st Contact Info) Description 11/01/2021 Lab Requisition [facility] Pathology & Laboratory Medicine - [facility] [address] [place] [address] Outr Resulting Lab, Provider Social History Tobacco [...] Priority Date/Time Associated Diagnosis Comments [id number] TEST [facility] PCR Today 10/31/2021 22:55 EDT COVID-19 TESTING Routine 10/31/2021 22:5 5 EDT documented in this encounter Results * COVID-19 TEST [facility] PCR (10/31/2021 22:55 EDT) Swab 10/31/2021 22:5 5 EDT 11/01/2021 17:26 EDT us Provider Outr Resulting Lab MICROBIOLOGY - GENER AL ORDERABLES Final Result [facility] [address] [place] [address] * COVID-19 TESTING (10/31/2021 22:55 EDT) COVID-19 rt-PCR Result Negative Negative 11/02/2021 11:[address] [facility] Comment: This test has [...] performed using the sunshine SARS-CoV-2 assay ([employer] on the Sunshine 6800 System Performing Lab Sunshine 6800 [facility] Lab 11/02/2021 11:[address] [facility] Swab 10/31/2021 22:5 5 EDT 11/01/2021 17:26 EDT us Provider Outr Resulting Lab MICROBIOLOGY - GENER AL ORDERABLES Final Result [facility] [address] [place] [address] documented in this encounter Visit Diagnoses Not on filedocumented in this encounter
--- OUTSIDE RECORDS SUMMARY | 2024-03-05 19:17 | XMS_ITS | Referral Summary ---
Author Organization [facility] Address [address] [place] [address] Care Team Providers Care Data Center Consultant Name Role Phone Unavailable Primary Care Provider Unavailabl e Encounters Date Type Department Care Team Description 02/18/2024 Lab Requisition [facility] Pathology & Laboratory [facility] [address] [place] [address] Outr Resulting Lab, Provider 02/04/2024 Lab Requisition [facility] Pathology & Laboratory [facility] [address] [place] [address] Outr Resulting Lab, Provider from Last 3 Months Social History Tobacco Use Types Packs/Day Years Used Date Smoking Tobacco: Never Assessed Comments Unknown Sex and Gender Information Value Date Recorded Sex Assigned at Not on file Legal Sex Female 3:24 EDT Gender Identity Not on file Sexual Orientation Not on file Plan of Treatment Not on file Procedures Procedure Name Priority Date/Time Associated Diagnosis Comments CHLAMYDIA/N. GONORRHOEAE AMPLIFIED NUCLEIC ACID Routine 02/17/2024 15:05 EST HIV 1/2 ANTIGEN AND ANTIBODY, 4TH GENERATION Routine 02/03/2024 10:10 EST from Last 3 Months Results * CHLAMYDIA/N. GONORRHOEAE AMPLIFIED NUCLEIC ACID (02/17/2024 15:05 EST) Neisseria gonorrhoeae Result Negative Negative 02/19/2024 12:05 EST [facility] Chlamydia trachomatis Result Negative Negative 02/19/2024 12:05 EST [facility] Urine URINE / Unknown 02/17/2024 1 5:05 EST 02/18/2024 18:19 EST Narrative [facility] - 02/19/2024 12:05 EST A first catch urine specimen is acceptable for detection of Gonorrhea and Chlamydia, but might detect up to 10% fewer infections when compared with vaginal swab samples. us Provider Outr Resulting Lab MICROBIOLOGY - GENER AL ORDERABLES Final Result Performing Organization Address [facility]/ZIP Co de Phone Number [facility] [address] [place] [address] * HIV 1/2 ANTIGEN AND ANTIBODY, 4TH GENERATION (02/03/2024 10:10 EST) [facility] HIV 1 and 2 Antibody/p24 Antigen, 4th Generation Negative Negative 02/06/2024 10:17 EST [facility] Comment:If acute HIV-1 infec tion is suspected in a high risk patient, submit plasma specimen for HIV-1 RNA quantitation test. Blood VENOUS BLOOD / Unknown 02/03/2024 10:10 EST 02/05/2024 17:13 EST Narrative [facility] - 02/06/2024 10:17 EST Fourth Generation assay performed on the Siemens be2aur XPT. us Provider Outr Resulting Lab IMMUNOLOGY AND SEROL OGY ORDERABLES Final Result Performing Organization Address City/[facility]/ZIP Co de Phone Number [facility] [address], [place] [phone] from Last 3 Months
--- OUTSIDE RECORDS SUMMARY | 2024-03-05 19:17 | XMS_ITS | Encounter Summary ---
Author Organization [facility] Address [address] [place] [address] Care Team Providers Care Line Welder Name Role Phone Unavailable Primary Care Provider Unavailabl e Encounter Details Date Type Department Care Team (Late st Contact Info) Description 07/04/2022 Lab Requisition [facility] Pathology & Laboratory Medicine - [facility] [address] [place] [address] Outr Resulting Lab, Provider Social History Tobacco [...] gonorrhoeae Result Negative Negative 07/06/2022 14:42 EDT [facility] Chlamydia trachomatis Result Negative Negative 07/06/2022 14:42 EDT [facility] Urine URINE / Unknown 07/04/2022 1 4:45 EDT 07/05/2022 22:27 EDT Narrative [facility] - 07/06/2022 14:42 EDT A first catch urine specimen is acceptable for detection of Gonorrhea and Chlamydia, but might detect up to 10% fewer infections when compared with vaginal and endocervical swab samples. us Provider Outr Resulting Lab MICROBIOLOGY - GENER AL ORDERABLES Final Result [facility] [address] [place] [address] documented in this encounter Visit Diagnoses Not on filedocumented in this encounter
--- OUTSIDE RECORDS SUMMARY | 2024-03-05 19:17 | XMS_ITS | Encounter Summary ---
Author Organization [facility] Address [address] [place] [address] Care Team Providers Care Nanotechnology Engineering Technologist Name Role Phone Unavailable Primary Care Provider Unavailabl e Encounter Details Date Type Department Care Team (Late st Contact Info) Description 10/01/2021 Lab Requisition [facility] Pathology & Laboratory Medicine - [facility] [address] [place] [address] Outr Resulting Lab, Provider Social History Tobacco [...] Priority Date/Time Associated Diagnosis Comments ZZCOVID-19 TEST [facility] PCR Today 10/01/2021 22:22 EDT COVID-19 TESTING Routine 10/01/2021 22:2 2 EDT documented in this encounter Results * COVID-19 TEST [facility] PCR (10/01/2021 22:22 EDT) Swab 10/01/2021 22:2 2 EDT 10/02/2021 16:46 EDT us Provider Outr Resulting Lab MICROBIOLOGY - GENER AL ORDERABLES Final Result [facility] [address] [place] [address] * COVID-19 TESTING (10/01/2021 22:22 EDT) COVID-19 rt-PCR Result Negative Negative 10/03/2021 14:23 EDT [facility] Comment: This test has not [...] performed using the sunshine SARS-CoV-2 assay ([employer] on the Sunshine 6800 System Performing Lab Sunshine 6800 [facility] 10/03/2021 14:23 EDT [facility] Swab 10/01/2021 22:2 2 EDT 10/02/2021 16:46 EDT us Provider Outr Resulting Lab MICROBIOLOGY - GENER AL ORDERABLES Final Result [facility] [address] [place] [address] documented in this encounter Visit Diagnoses Not on filedocumented in this encounter
[2024-03-05] MEDS: Ketorolac 15 MG/ML VIAL 7.5 MG IVP (19:19)
--- NOTE | 2024-03-05 19:21 | NUR.NOTE ---
Ultrasound req faxed to DI for appt 03/08/24. Patient given a copy and instructions for pelvic u/s prep. Patient advised to call DI scheduling 03/08/24 anytime after 0700 to sched. appt.Nursing Note:
[2024-03-05 19:39] VITALS: BP 100/63; PULSE 90; RESP 16; TEMP 36.6; O2SAT 98
[2024-03-05] MEDS: Lidocaine 5% Patch 1 PATCH TP (19:40)
[2024-03-05] MEDS: Cyclobenzaprine 10 MG TAB, 3 TABS/BTL PO (19:40)
== END 2024-03-05 19:40 | disposition home or self-care (01) ==
PROVIDERS: Emergency Provider Physician Assistant; PCP Obstetrics & Gynecology Gynecology
DX: R10.2 Pelvic and perineal pain (principal)
CPT/HCPCS: 36415; 80053; 81025; 96374; 96375; 99284; 74176; 81003; 85025; 86140; J1885; J2405

== ENCOUNTER 2024-03-09 02:27 | Outpatient (CLI) | payer MEDICAID, SELFPAY ==
--- NOTE | 2024-03-09 14:30 | DI.US_ITS ---
Exam(s) US PELVIS TRANSVAGINAL EXAM: US PELVIS TRANSVAGINAL CLINICAL HISTORY: RLQ PAIN TECHNIQUE: Ultrasound of the pelvis was performed both transabdominal and transvaginal. COMPARISON: US US PELVIS TRANSVAGINAL from 11/04/[address] ABDOMEN PELVIS WO from 03/05/2024 FINDINGS: UTERUS: Uterus is again noted to be anteverted, measuring Measures 6 cm length x 2.7 cm AP x 3.6 cm wide. The previously described a subtle isoechoic uterine fibroid near the fundus is actually less evident on the present study. Endometrial thickness measures 3-4 mm. There is a small amount of fluid in the endometrial cavity CERVIX: There are no obvious nabothian cysts. RIGHT OVARY: Measures 3.2 x 2.1 x 3.0 cm Contains age-appropriate follicular cysts measuring less than 1 cm. LEFT OVARY: Measures 2.9 x 1.7 x 2.1 cm Contains age-appropriate sub cm size follicular cysts. There is some fluid in the left adnexa and in the cul-de-sac mild-moderate amount. There no extraovarian adnexal masses evident on these images. IMPRESSION: 1. There is small amount of fluid in the endometrial cavity. No other significant uterine findings. No evidence of intrauterine gestation. 2. No abnormal ovarian findings. Age-appropriate small sub cm follicular cysts are noted in both ova alysia. There are no extraovarian adnexal masses. 3. There is, however, some free fluid evident in the left adnexa and cul-de-sac. Correlation with test recommended. DATA REPOSITORY:
== END 2024-03-09 02:47 ==
LOC: DI 02:28
PROVIDERS: Visit Provider Physician Assistant
DX: R10.31 Right lower quadrant pain (principal)
CPT/HCPCS: 76830; 76856

== ENCOUNTER 2024-03-11 15:47 | Outpatient (CLI) | payer MEDICAID, SELFPAY ==
[2024-03-15 14:54] LABS: Porphyrins, Total, P <1.0 mcg/dL (<=1.0)
[2024-03-15 15:01] LABS: Porphobilinogen, U 0.7 mcmol/L (<=1.3)
== END 2024-03-11 15:48 | disposition home or self-care (01) ==
LOC: LBO 15:47
PROVIDERS: Visit Provider Obstetrics & Gynecology Gynecology
DX: R10.2 Pelvic and perineal pain (principal); R10.31 Right lower quadrant pain
CPT/HCPCS: 36415; 84110; 84311

== ENCOUNTER 2024-03-22 19:07 | Emergency (ER) | payer MEDICAID, SELFPAY ==
[2024-03-22 19:13] VITALS: BP 118/81; PULSE 92; RESP 16; TEMP 36.8; O2SAT 99
--- OUTSIDE RECORDS SUMMARY | 2024-03-22 20:13 | XMS_ITS | Encounter Summary ---
Author Organization [facility] [place] [address] Care Team Providers Care Hoisting Machine Operator Name Role Phone Krystal Kurtz TRANSPORTATION ENGINEERING TECHNICIAN Primary Care Provider Encounter Details Date Type Department Care Team (Late st Contact Info) Description 01/07/2022 12:08 PM EST Anesthesia [place] [phone] John Patton MD [facility] [place] [address] Anesthesia Record Procedure Summary Procedure Name Responsible [...] Procedure Summary Date: 01/07/22 Room / Location: [facility] ENDO 6 / [facility]OSCOPY Anesthesia Start: 1208 Anesthesia Stop: 1242 Procedures: EGD, UPPER GI ENDOSCOPY (Trunk) PEDIATRIC COLONOSCOPY Diagnosis: Chronic abdominal pain (Weight loss, chronic abdominal pain, intermittent rectal bleeding and PPI refractory reflux) Surgeons: Jayna Coats DO Responsible Provider: John Patton MD Anesthesia Type: MAC ASA Status: 2 All Anesthesia Providers: Anesthesiologist: John Patton MD NEIGHBORHOOD WORKER: Mel De Souza CRNA Vitals Value [...] can be guaranteed. Explained that anesthesia at [facility] is commonly delivered in a team care model fashion, with either resident or CRNAs supervised by an anesthesiologist, who frequently supervises one or more other anesthesia deliveries, provide care. -- John Patton MD, MS Informed Consent: Anesthetic plan and risks discussed with patient and father. Plan discussed with NEIGHBORHOOD WORKER. Anesthesia Screening documented in this encounter [...] mcg documented in this encounter Care Teams Hoisting Machine Operator Relationship Specialty Start Date End Date Krystal Kurtz APRN PCP - General Family Medicine 09/23/21 01/22/24 documented as of this encounter
--- OUTSIDE RECORDS SUMMARY | 2024-03-22 20:13 | XMS_ITS | Encounter Summary ---
Author Organization [facility] Address [address] [facility] [place] [address] Care Team Providers Care Drop Wire Aliner Name Role Phone Krystal Kurtz APRN Primary Care Provider Encounter Details Date Type [...] on filedocumented in this encounter Care Teams Drop Wire Aliner Relationship Specialty Start Date End Date Krystal Kurtz APRN PCP - General Family Medicine 09/23/21 01/22/24 documented as of this encounter
--- OUTSIDE RECORDS SUMMARY | 2024-03-22 20:13 | XMS_ITS | Encounter Summary ---
Author Organization [facility] Address [facility] [place] [address] Care Team Providers Care Insulation Worker Furnace Installer Name Role Phone Krystal Kurtz APRN Primary Care Provider [phone] Reason for Referral * Consultation (Routine) - Closed Specialty Diagnoses / Procedures Referred By Contact Referred To Contact Pediatric Gastroenterology Diagnoses Weight loss Chronic abdominal pain Anxiety Cait Alexandre APRN [facility] [place] [address] Liset Higgins, PhD [facility] [place] [address] Referral ID Status Reason Start Date Expiration Date V isits Requested Visits Authorized [id number] Closed Specialty Service Requested 2022 2023 1 1 Encounter Details Date Type Department Care Team (Late st Contact Info) Description 2022 Telephone Pediatric [place] [address] Cait Alexandre APRN [facility] [address] Social History Tobacco Use Types Packs/Day Years [...] with me. Attempted to transfer call to loan secretary to help her with scheduling-however call did not go throughand then call was dropped. Attempted to call Marilu back twice- but unable to get call to go through.Sent message and spoke with loan secretary in person to call Marilu back [...] rescheduled soon. Her call back number is [phone] documented in this encounter Plan of Treatment Scheduled Referrals Name Type Priority Associated Diagnoses Order Schedule Referral to Pediatric Gastroenterology Outpatient Referral Routine Weight loss Chronic abdominal pain Anxiety Ordered: 2022 documented as of this encounter Visit Diagnoses Diagnosis Weight loss Loss of weight Chronic abdominal pain Abdominal pain, unspecified site Anxiety Anxiety state, unspecified documented in this encounter Care Teams Insulation Worker Furnace Installer Relationship Specialty Start Date End Date Krystal Kurtz APRN PCP - General Family Medicine 09/23/21 01/22/24 documented as of this encounter
--- OUTSIDE RECORDS SUMMARY | 2024-03-22 20:13 | XMS_ITS | Encounter Summary ---
Author Organization [facility] [place] [address] Care Team Providers Care Top Screw Name Role Phone Krystal Kurtz APRN Primary Care Provider [phone] Encounter Details Date Type Department Care Team (Late st Contact Info) Description 06/10/2022 Telephone Pediatric [place] [phone] Bartolome Gonzales Social History Tobacco Use Types [...] on filedocumented in this encounter Care Teams Top Screw Relationship Specialty Start Date End Date Krystal Kurtz APRN PCP - General Family Medicine 09/23/21 01/22/24 documented as of this encounter
--- OUTSIDE RECORDS SUMMARY | 2024-03-22 20:13 | XMS_ITS | Encounter Summary ---
Author Organization [facility] Address [facility] [place] [address] Care Team Providers Care Lockstitch Topstitcher Name Role Phone Krystal Kurtz APRN Primary Care Provider [phone] Reason for Visit * Consultation (Routine) - Closed Specialty Diagnoses / Procedures Referred By Contact Referred To Contact Pediatric Gastroenterology Diagnoses Weight loss Chronic abdominal pain Anxiety Cait Alexandre APRN [facility] [place] [address] Liset Higgins, PhD [facility] [place] [address] Referral ID Status Reason Start Date Expiration Date V isits Requested Visits Authorized [id number] Closed Specialty Service Requested 2022 2023 1 1 Encounter Details Date Type Department Care Team (Latest Contact Info) Description 06/07/2022 9:00 AM EDT TH Visit (TeleHealth) Pediatric [place] [address] Liset Higgins, PhD PATIENT NOT SEEN Social [...] SEEN documented in this encounter Care Teams Lockstitch Topstitcher Relationship Specialty Start Date End Date Krystal Kurtz APRN PCP - General Family Medicine 09/23/21 01/22/24 documented as of this encounter
--- OUTSIDE RECORDS SUMMARY | 2024-03-22 20:13 | XMS_ITS | Clinical Summary ---
Author Organization [facility] Address [address] [facility] [place] [address] Care Team Providers Care Facepiece Line Supervisor Name Role Phone Reinier Kenney Primary Care [...] PM EST Ext Surgery or Single Event [facility] [address] [place] [address] Gopi Harkins MD Palpitations from [...] Procedure Name Priority Date/Time Associated Diagnosis Comments SCHOOL RESOURCE OFFICER SCAN 01/26/2024 12:00 AM EST from Last 3 Months Results * Scan Doc: Manager Retail Sales (01/26/2024 12:00 AM EST) Anatomical Region Laterality Modality Other Narrative 01/26/2024 12:00 AM EST Ordered by an unspecified provider. Scanning Provider MEDIA MGR SCAN EXT O RDR/RSLT from Last 3 Months Care Teams Facepiece Line Supervisor Relationship Specialty Start Date End Date Reinier Kenney PA [address] [facility] [place] [address] PCP - General Internal Medicine 01/23/24
--- OUTSIDE RECORDS SUMMARY | 2024-03-22 20:13 | XMS_ITS | Encounter Summary ---
Author Organization [place] [address] Care Team Providers Care Roll Panner Name Role Phone Krystal Kurtz APRN Primary Care Provider [phone] Reason for Referral * Consultation (Routine) - Authorized Specialty Diagnoses / Procedures Referred By Contac t Referred To Contact Obstetrics and Gynecology Diagnoses Dysmenorrhea, unspecified HAS TRIED DEPO PROVERA, OCPS, NEXPLANON. DECLINES IUDS. WANTS DISCUSSION ABOUT ENDOMETRIOSIS Barbara Orourke APRN [address] [place] [address] [facility] Straightening [address] [place] [address] [place] [address] Referral ID Status Reason Start Date Expiration Date Visits Requested Visits Authorized [id number] Authorized Consult, Test & Treat PCP Updated and/or Approved 04/18/2023 04/17/2024 6 6 Encounter Details Date Type Department Care Team (Latest Contact Info) Description 04/18/2023 Transcribe Orders eDH Incoming Referrals [phone] Barbara Orourke APRN [address] [place], [place] [id number] Dysmenorrhea, unspecified Social History Tobacco Use Types [...] Associated Diagnoses Orde r Schedule Referral to Ob-Modeling Teacher Outpatient Referral Routine Dysmenorrhea, unspecified Ordered: 04/18/2023 documented as of this encounter Visit Diagnoses Diagnosis Dysmenorrhea, unspecified documented in this encounter Care Teams Roll Panner Relationship Specialty Start Date End Date Krystal Kurtz APRN PCP - General Family Medicine 09/23/21 01/22/24 documented as of this encounter
--- OUTSIDE RECORDS SUMMARY | 2024-03-22 20:13 | XMS_ITS | Encounter Summary ---
Author Organization [facility] [place] [address] Care Team Providers Care Scientific Database Curator Name Role Phone Jerardo Krystal KIRBY Primary Care Provider [phone] Encounter Details Date Type Department Care Team (Latest Contact Info) Description 01/07/2022 10:02 AM EST - 01/07/2022 1:15 PM EST Hospital Encounter [place] [address] Jayna Coats [facility] [place] [address] Discharge Disposition: Home Social History Tobacco Use [...] 01/07/2022 10: 35 AM EST Growth Chart: [facility] (Girls, 2- 20 Years) documented in this [...] %ile based on CDC (Girls, 2-20 Years) fytjjj-ouy-wxt data based on Weight recorded on 01/07/2022. 47 %ile based on CDC (Girls, 2-20 Years) Zgvatgj-imd-yuo data based on Stature recorded on 01/07/2022. [...] proceed. Jayna Coats DO Pediatric Gastroenterology Pager [phone] documented in this encounter Plan of Treatment [...] RN) documented in this encounter Care Teams Scientific Database Curator Relationship Specialty Start Date End Date Krystal Kurtz APRN PCP - General Family Medicine 09/23/21 01/22/24 documented as of this encounter
--- OUTSIDE RECORDS SUMMARY | 2024-03-22 20:13 | XMS_ITS | Encounter Summary ---
Author Organization [facility] [place] [address] Care Team Providers Care Fire Pot Operator Name Role Phone JerardoChanelleshashank KIRBY Primary Care Provider [phone] Encounter Details Date Type Department Care Team (Late st Contact Info) Description 01/07/2022 10:54 AM EST - 01/07/2022 11:57 AM EST [place] [address] [facility] [place] [address] Not Performed EGD, UPPER GI ENDOSCOPY (WRVU [...] 01/07/2022 10: 35 AM EST Growth Chart: [facility] (Girls, 2- 20 Years) documented in this [...] %ile based on CDC (Girls, 2-20 Years) eibptq-byc-mot data based on Weight recorded on 01/07/2022. 47 %ile based on CDC (Girls, 2-20 Years) Qxfazjn-dqi-fmx data based on Stature recorded on 01/07/2022. [...] proceed. Jayna Coats DO Pediatric Gastroenterology Pager [phone] documented in this encounter Plan of Treatment [...] RN) documented in this encounter Care Teams Fire Pot Operator Relationship Specialty Start Date End Date Krystal Kurtz APRN PCP - General Family Medicine 09/23/21 01/22/24 documented as of this encounter
--- OUTSIDE RECORDS SUMMARY | 2024-03-22 20:13 | XMS_ITS | Encounter Summary ---
Author Organization [facility] Address [facility] [place] [address] Care Team Providers Care Cost Accountant Name Role Phone Reinier Kenney Primary Care Provider + Encounter Details Date Type Department Care Team (Late st Contact Info) Description 01/26/2024 7:00 PM EST Ext Surgery or Single Event [facility] [address] [place] [address] Gopi Harkins MD [facility] [place] [address] Palpitations Social History Tobacco Use Types Packs/Day [...] Procedure Name Priority Date/Time Associated Diagnosis Comments RECYCLABLE PRODUCTS SORTER SCAN 01/26/2024 12:00 AM EST documented in this encounter Results * Scan Doc: Strap Buckler (01/26/2024 12:00 AM EST) Anatomical Region Laterality Modality Other Narrative 01/26/2024 12:00 AM EST Ordered by an unspecified provider. Scanning Provider MEDIA MGR SCAN EXT O RDR/RSLT documented in this encounter Visit Diagnoses Diagnosis Palpitations documented in this encounter Care Teams Cost Accountant Relationship Specialty Start Date End Date Reinier [place]ney [place] [place] [address] PCP - General Internal Medicine 01/23/24 documented as of this encounter
--- OUTSIDE RECORDS SUMMARY | 2024-03-22 20:13 | XMS_ITS | Encounter Summary ---
Author Organization [facility] Address [facility] [place] [address] Care Team Providers Care Machine Ii Coremaker Name Role Phone Krystal Kurtz APRN Primary Care Provider [phone] Encounter Details Date Type Department Care Team (Late st Contact Info) Description 06/19/2023 Telephone Obstetrics [place] [address] Mira Irizarry Social History Tobacco [...] on filedocumented in this encounter Care Teams Machine Ii Coremaker Relationship Specialty Start Date End Date Krystal Kurtz APRN PCP - General Family Medicine 09/23/21 01/22/24 documented as of this encounter
--- OUTSIDE RECORDS SUMMARY | 2024-03-22 20:13 | XMS_ITS | Encounter Summary ---
Author Organization [facility] Address [facility] [place] [address] Care Team Providers Care Refrigerated Cargo Clerk Name Role Phone Krystal Kurtz APRN Primary Care Provider [phone] Reason for Referral * Physical Therapy (Routine) - Closed Specialty Diagnoses / Procedures Referred By Contac t Referred To Contact Physical Therapy Diagnoses Dysmenorrhea Dyspareunia, female On Depo-Provera for contraception Menorrhagia with regular cycle Isabelle Thrasher MD [facility] [place] [address] [facility], [address] [address] Referral ID Status Reason Start Date Expiration Date V isits Requested Visits Authorized [id number] Closed Evaluate and Treat 06/20/2023 12/17/2023 12 12 Reason for Visit * Consultation (Routine) - Authorized Specialty Diagnoses / Procedures Referred By Contac t Referred To Contact Obstetrics and Gynecology Diagnoses Dysmenorrhea, unspecified HAS TRIED DEPO PROVERA, OCPS, NEXPLANON. DECLINES IUDS. WANTS DISCUSSION ABOUT ENDOMETRIOSIS Barbara Orourke, [place] [place] [address] [facility] Materials Planning Manager [address] [place] [address] Referral ID Status Reason Start Date Expiration Date Visits Requested Visits Authorized [id number] Authorized Consult, Test & Treat PCP Updated and/or Approved 04/18/2023 04/17/2024 6 6 Encounter Details Date Type Department Care Team (Late st Contact Info) Description 06/20/2023 9:00 AM EDT Office Visit Obstetrics [place] [address] Isabelle Thrasher MD [facility] [place] [address] Dysmenorrhea; Dyspareunia, female; On Depo-Provera for contraception; [...] MD - 06/20/2023 9:00 AM EDT NEW PLASTIC OUTFITTER VISIT Referring Provider: MIRTA [address]ley [place] [address] S: Marilu Dee is G0 female with dysmenorrhea, HMB, managed with Depo- Provera, presents for 1) counseling on endometriosis, 2) BV testing, and 3) dyspareunia evaluation #HMB, dysmenorrhea #Current Depo use Menarche onset: age 13 Menses: monthly, prolonged heavy bleeding, can last 2-3 wks, with passage of blood clots. Previously sought [facility] for initial evaluation. Initially tried the [...] testing 1 wk ago, neg GC/CT (see [facility] result). Plan future fertility around age 24 [...] Priority Date/Time Associated Diagnosis Comments VAGINITIS/OSIS PANEL ([facility]/APD/NL/CGP) Routine 06/20/2023 4:00 PM EDT Dysmenorrhea Dyspareunia, female POCT URINE Routine 06/20/2023 10:00 AM EDT documented in this encounter Results * Vaginitis/osis Panel ([facility]/APD/NLH/CGP) (06/20/2023 4:00 PM EDT) Bacterial vaginosis Negative Negative [facility] Elvira sp. Group Negative Negative [facility] Elvira Glabrata Negative Negative [facility] Trichomonas vaginalis Negative Negative [facility] BV/CV/TV Interp Results from [...] and BV Assay were tested on the [employer]. These assays are cleared by the [place] Food & Drug Administration for clinical testing. [facility] Vaginal 06/20/2023 4:00 PM EDT 06/20/2023 4:00 PM EDT Narrative Resulting Agency Comment Spec In Lab Nicol Laguna MD MICROBIOLOGY - NERAL ORDERABLES [facility] [place] [address] * POCT urine (06/20/2023 10:00 AM EDT) POC Urine HCG Negative POC Control Internal Controls Acceptable 06/20/2023 10:0 0 AM EDT Nicol Laguna MD [facility] T ORDERABLES documented in this encounter Visit Diagnoses Diagnosis Dysmenorrhea Dyspareunia, female Dyspareunia On Depo-Provera for contraception Menorrhagia with regular cycle Excessive or frequent menstruation documented in this encounter Care Teams Refrigerated Cargo Clerk Relationship Specialty Start Date End Date Krystal Kurtz APRN PCP - General Family Medicine 09/23/21 01/22/24 documented as of this encounter
--- OUTSIDE RECORDS SUMMARY | 2024-03-22 20:13 | XMS_ITS | Encounter Summary ---
Author Organization [facility] [place] [address] Care Team Providers Care Juice Bar Team Member Name Role Phone JerardoKrystal velasquez MIRTA Primary Care Provider [phone] Encounter Details Date Type Department Care Team (Late st Contact Info) Description 01/07/2022 Telephone [place] [id number] Jayna Coats [facility] [address] Social History Tobacco Use Types Packs/Day Years [...] anxiety surrounding the start of the procedure. CYBERATHLETE administered Precedex to help calm her, became [...] started the infusion within a few seconds. Program Aide, CYBERATHLETE and I were speaking calmly to comfort [...] GI provider. Jayna Coats DO, FAAP [facility] Pediatric Gastroenterology [address] [place] [address] MCKAYLA Goldsmith [phone] Pager [phone] documented in this encounter Plan of Treatment Not on file documented as of this encounter Visit Diagnoses Not on filedocumented in this encounter Care Teams Juice Bar Team Member Relationship Specialty Start Date End Date Krystal Kurtz APRN PCP - General Family Medicine 09/23/21 01/22/24 documented as of this encounter
--- OUTSIDE RECORDS SUMMARY | 2024-03-22 20:13 | XMS_ITS | Encounter Summary ---
Author Organization [facility] Address [facility] [place] [address] Care Team Providers Care Merchandising Stock Associate Name Role Phone Krystal Kurtz APRN Primary Care Provider [phone] Encounter Details Date Type Department Care Team (Late st Contact Info) Description 06/25/2023 Telephone Obstetrics [place] [address] Krystal Bernardo, RN Social History [...] on filedocumented in this encounter Care Teams Merchandising Stock Associate Relationship Specialty Start Date End Date Krystal Kurtz APRN PCP - General Family Medicine 09/23/21 01/22/24 documented as of this encounter
--- OUTSIDE RECORDS SUMMARY | 2024-03-22 20:14 | XMS_ITS | Encounter Summary ---
Author Organization [facility] [place] [address] Care Team Providers Care Circuitry Negative Inspector Name Role Phone Krystal Kurtz APRN Primary Care Provider [phone] Encounter Details Date Type Department Care Team [...] on filedocumented in this encounter Care Teams Circuitry Negative Inspector Relationship Specialty Start Date End Date Krystal Kurtz APRN PCP - General Family Medicine 09/23/21 01/22/24 documented as of this encounter
--- OUTSIDE RECORDS SUMMARY | 2024-03-22 20:14 | XMS_ITS | Encounter Summary ---
Author Organization [facility] [place] [address] Care Team Providers Care Postmaster Relief Name Role Phone Krystal Kurtz APRN Primary Care Provider [phone] Reason for Referral * Consultation (Urgent) - Closed Specialty Diagnoses / Procedures Referred By Contac t Referred To Contact Gastroenterology Diagnoses Rectal bleeding Abdominal pain, unspecified abdominal location Barbara Orourke APRN [address] [place] [address] [facility] [address] [place] [address] Referral ID Status Reason Start Date Expiration Date V isits Requested Visits Authorized [id number] Closed Consult, Test & Treat 12/21/2021 12/21/2022 6 6 Encounter Details Date Type Department Care Team (Latest Contact Info) Description 12/21/2021 Transcribe Orders eDH Incoming Referrals [phone] Barbara Orourke APRN [address] [place] [address] Rectal bleeding; Abdominal pain, unspecified abdominal [...] location documented in this encounter Care Teams Postmaster Relief Relationship Specialty Start Date End Date Krystal Kurtz APRN PCP - General Family Medicine 09/23/21 01/22/24 documented as of this encounter
--- OUTSIDE RECORDS SUMMARY | 2024-03-22 20:14 | XMS_ITS | Encounter Summary ---
Author Organization [facility] Address [address] [place] [address] Care Team Providers Care Outcomes Manager Name Role Phone Unavailable Primary Care Provider Unavailabl e Encounter Details Date Type Department Care Team (Late st Contact Info) Description 10/01/2021 Lab Requisition [facility] Pathology & Laboratory Medicine - [facility] [address] [place] [address] Outr Resulting Lab, Provider Social History Tobacco [...] Priority Date/Time Associated Diagnosis Comments ZZCOVID-19 TEST [facility] PCR Today 10/01/2021 22:22 EDT COVID-19 TESTING Routine 10/01/2021 22:2 2 EDT documented in this encounter Results * COVID-19 TEST [facility] PCR (10/01/2021 22:22 EDT) Swab 10/01/2021 22:2 2 EDT 10/02/2021 16:46 EDT us Provider Outr Resulting Lab MICROBIOLOGY - GENER AL ORDERABLES Final Result [facility] [address] [place] [address] * COVID-19 TESTING (10/01/2021 22:22 EDT) COVID-19 rt-PCR Result Negative Negative 10/03/2021 14:[address] [facility] Comment: This test has [...] performed using the sunshine SARS-CoV-2 assay ([employer] on the Sunshine 6800 System Performing Lab Sunshine 6800 [facility] 10/03/2021 14:[address] [facility] Swab 10/01/2021 22:2 2 EDT 10/02/2021 16:46 EDT us Provider Outr Resulting Lab MICROBIOLOGY - GENER AL ORDERABLES Final Result [facility] [address] [place] [address] documented in this encounter Visit Diagnoses Not on filedocumented in this encounter
--- OUTSIDE RECORDS SUMMARY | 2024-03-22 20:14 | XMS_ITS | Encounter Summary ---
Author Organization [facility] Address [address] [place] [address] Care Team Providers Care Academic Director Name Role Phone Unavailable Primary Care Provider Unavailabl e Encounter Details Date Type Department Care Team (Late st Contact Info) Description 02/18/2024 Lab Requisition [facility] Pathology & Laboratory Medicine - [facility] [address] [place] [address] Outr Resulting Lab, Provider Social History Tobacco [...] gonorrhoeae Result Negative Negative 02/19/2024 12:05 EST [facility] Chlamydia trachomatis Result Negative Negative 02/19/2024 12:05 EST [facility] Urine URINE / Unknown 02/17/2024 1 5:05 EST 02/18/2024 18:19 EST Narrative [facility] - 02/19/2024 12:05 EST A first catch urine specimen is acceptable for detection of Gonorrhea and Chlamydia, but might detect up to 10% fewer infections when compared with vaginal swab samples. us Provider Outr Resulting Lab MICROBIOLOGY - GENER AL ORDERABLES Final Result Performing Organization Address [facility]/State/ZIP Co de Phone Number [facility] [address] [place] [address] documented in this encounter Visit Diagnoses Not on filedocumented in this encounter
--- OUTSIDE RECORDS SUMMARY | 2024-03-22 20:14 | XMS_ITS | Encounter Summary ---
Author Organization [facility] Address [address] [place] [address] Care Team Providers Care Burglary Investigator Name Role Phone Unavailable Primary Care Provider Unavailabl e Encounter Details Date Type Department Care Team (Late st Contact Info) Description 03/14/2023 Lab Requisition [facility] Pathology & Laboratory Medicine - [facility] [address] [place] [address] Outr Resulting Lab, Provider Social History Tobacco [...] gonorrhoeae Result Negative Negative 03/15/2023 15:31 EST [facility] Chlamydia trachomatis Result Negative Negative 03/15/2023 15:31 EST [facility] Swab VAGINAL STRUCTURE / Unknown 03/14/2023 10:00 EST 03/14/2023 21:35 EST us Provider Outr Resulting Lab MICROBIOLOGY - GENER AL ORDERABLES Final Result [facility] [address] [place] [address] documented in this encounter Visit Diagnoses Not on filedocumented in this encounter
--- OUTSIDE RECORDS SUMMARY | 2024-03-22 20:14 | XMS_ITS | Encounter Summary ---
Author Organization [facility] Address [address] [place] [address] Care Team Providers Care Licensed Final Expense Agents Name Role Phone Unavailable Primary Care Provider Unavailabl e Encounter Details Date Type Department Care Team (Late st Contact Info) Description 05/02/2022 Lab Requisition [facility] Pathology & Laboratory Medicine - [facility] [address] [place] [address] Outr Resulting Lab, Provider Social History Tobacco [...] gonorrhoeae Result Negative Negative 05/03/2022 13:[address] [facility] Chlamydia trachomatis Result Negative Negative 05/03/2022 13:[address] [facility] Urine URINE / Unknown 05/02/2022 1 0:30 EDT 05/02/2022 21:[address] [facility] - 05/03/2022 13:50 EDT A first catch urine specimen is acceptable for detection of Gonorrhea and Chlamydia, but might detect up to 10% fewer infections when compared with vaginal and endocervical swab samples. us Provider Outr Resulting Lab MICROBIOLOGY - GENER AL ORDERABLES Final Result [facility] [address] [place] [address] documented in this encounter Visit Diagnoses Not on filedocumented in this encounter
--- OUTSIDE RECORDS SUMMARY | 2024-03-22 20:14 | XMS_ITS | Encounter Summary ---
Author Organization [facility] Address [address] [place] [address] Care Team Providers Care Roller Inspector Name Role Phone Unavailable Primary Care Provider Unavailabl e Encounter Details Date Type Department Care Team (Late st Contact Info) Description 09/23/2023 Lab Requisition [facility] Pathology & Laboratory Medicine - [facility] [address] [place] [address] Outr Resulting Lab, Provider Social History Tobacco [...] gonorrhoeae Result Negative Negative 09/24/2023 11:51 EDT [facility] Chlamydia trachomatis Result Negative Negative 09/24/2023 11:51 EDT [facility] Urine URINE / Unknown 09/23/2023 1 0:30 EDT 09/23/2023 19:27 EDT Narrative [facility] - 09/24/2023 11:51 EDT A first catch urine specimen is acceptable for detection of Gonorrhea and Chlamydia, but might detect up to 10% fewer infections when compared with vaginal swab samples. us Provider Outr Resulting Lab MICROBIOLOGY - GENER AL ORDERABLES Final Result [facility] [address] [place] [address] documented in this encounter Visit Diagnoses Not on filedocumented in this encounter
--- OUTSIDE RECORDS SUMMARY | 2024-03-22 20:14 | XMS_ITS | Encounter Summary ---
Author Organization [facility] Address [address] [place] [address] Care Team Providers Care Agricultural Technician Name Role Phone Unavailable Primary Care Provider Unavailabl e Encounter Details Date Type Department Care Team (Late st Contact Info) Description 09/10/2021 Lab Requisition [facility] Pathology & Laboratory Medicine - [facility] [address] [place] [address] Outr Resulting Lab, Provider Social History Tobacco [...]
--- OUTSIDE RECORDS SUMMARY | 2024-03-22 20:14 | XMS_ITS | Referral Summary ---
Author Organization [facility] Address [address] [place] [address] Care Team Providers Care Costume Shop Coordinator Name Role Phone Unavailable Primary Care Provider Unavailabl e Encounters Date Type Department Care Team Description 02/18/2024 Lab Requisition [facility] Pathology & Laboratory [facility] [address] [place] [address] Outr Resulting Lab, Provider 02/04/2024 Lab Requisition [facility] Pathology & Laboratory [facility] [address] [place] [address] Outr Resulting Lab, Provider from Last 3 [...] gonorrhoeae Result Negative Negative 02/19/2024 12:05 EST [facility] Chlamydia trachomatis Result Negative Negative 02/19/2024 12:05 EST [facility] Urine URINE / Unknown 02/17/2024 1 5:05 EST 02/18/2024 18:19 EST Narrative [facility] - 02/19/2024 12:05 EST A first catch urine specimen is acceptable for detection of Gonorrhea and Chlamydia, but might detect up to 10% fewer infections when compared with vaginal swab samples. us Provider Outr Resulting Lab MICROBIOLOGY - GENER AL ORDERABLES Final Result Performing Organization Address [facility]/ZIP Co de Phone Number [facility] [address] [place] [address] * HIV 1/2 ANTIGEN AND ANTIBODY, 4TH GENERATION (02/03/2024 10:10 EST) [facility] HIV 1 and 2 Antibody/p24 Antigen, 4th Generation Negative Negative 02/06/2024 10:17 EST [facility] Comment:If acute HIV-1 infec tion is suspected in a high risk patient, submit plasma specimen for HIV-1 RNA quantitation test. Blood VENOUS BLOOD / Unknown 02/03/2024 10:10 EST 02/05/2024 17:13 EST Narrative [facility] - 02/06/2024 10:17 EST Fourth Generation assay performed on the Siem[employer] XPT. us Provider Outr Resulting Lab IMMUNOLOGY AND SEROL OGY ORDERABLES Final Result Performing Organization Address City/[facility]/ZIP Co de Phone Number [facility] [address] [place], [place] [id number] from Last 3 Months
--- OUTSIDE RECORDS SUMMARY | 2024-03-22 20:14 | XMS_ITS | Encounter Summary ---
Author Organization [facility] Address [address] [place] [address] Care Team Providers Care Wood Crafter Name Role Phone Unavailable Primary Care Provider Unavailabl e Encounter Details Date Type Department Care Team (Late st Contact Info) Description 04/15/2022 Lab Requisition [facility] Pathology & Laboratory [facility] [address] [place] [address] Outr Resulting Lab, Provider Social History Tobacco [...] gonorrhoeae Result Negative Negative 04/16/2022 13:12 EST [facility] Chlamydia trachomatis Result Negative Negative 04/16/2022 13:12 EST [facility] Swab ENTIRE VAGINA / Unknown 04/14/2022 12:06 EST 04/15/2022 17:25 EST us Provider Outr Resulting Lab MICROBIOLOGY - GENER AL ORDERABLES Final Result [facility] [address] [place] [address] documented in this encounter Visit Diagnoses Not on filedocumented in this encounter
--- OUTSIDE RECORDS SUMMARY | 2024-03-22 20:14 | XMS_ITS | Encounter Summary ---
Author Organization [facility] Address [facility] [place] [address] Care Team Providers Care Allied Health Professional Name Role Phone Krystal Kurtz APRN Primary Care Provider [phone] Encounter Details Date Type Department Care Team (Late st Contact Info) Description 12/21/2021 Transcribe Orders eDH Incoming Referrals [phone] Barbara Orourke, MUSIC AUTOGRAPHER [address] [place], [place] [address] Social History Tobacco Use Types Packs/Day Years Used Date Smoking Tobacco: Never Assessed Sex and Gender Information Value Date Recorded Sex Assigned at Not on file Gender Identity Not on file Sexual Orientation Not on file documented as of this encounter Plan of Treatment Not on file documented as of this encounter Visit Diagnoses Not on filedocumented in this encounter Care Teams Allied Health Professional Relationship Specialty Start Date End Date Krystal Kurtz APRN PCP - General Family Medicine 09/23/21 01/22/24 documented as of this encounter
--- OUTSIDE RECORDS SUMMARY | 2024-03-22 20:14 | XMS_ITS | Encounter Summary ---
Author Organization [facility] Address [address] [place] [address] Care Team Providers Care Fiber Optics Supervisor Name Role Phone Unavailable Primary Care Provider Unavailabl e Encounter Details Date Type Department Care Team (Late st Contact Info) Description 07/04/2022 Lab Requisition [facility] Pathology & Laboratory Medicine - [facility] [address] [place] [address] Outr Resulting Lab, Provider Social History Tobacco [...] gonorrhoeae Result Negative Negative 07/06/2022 14:42 EDT [facility] Chlamydia trachomatis Result Negative Negative 07/06/2022 14:42 EDT [facility] Urine URINE / Unknown 07/04/2022 1 4:45 EDT 07/05/2022 22:27 EDT Narrative [facility] - 07/06/2022 14:42 EDT A first catch urine specimen is acceptable for detection of Gonorrhea and Chlamydia, but might detect up to 10% fewer infections when compared with vaginal and endocervical swab samples. us Provider Outr Resulting Lab MICROBIOLOGY - GENER AL ORDERABLES Final Result [facility] [address] [place] [address] documented in this encounter Visit Diagnoses Not on filedocumented in this encounter
--- OUTSIDE RECORDS SUMMARY | 2024-03-22 20:14 | XMS_ITS | Encounter Summary ---
Author Organization [facility] Address [address] [place] [address] Care Team Providers Care Protective Services Social Worker Name Role Phone Unavailable Primary Care Provider Unavailabl e Encounter Details Date Type Department Care Team (Late st Contact Info) Description 11/01/2021 Lab Requisition [facility] Pathology & Laboratory Medicine - [facility] [address] [place] [address] Outr Resulting Lab, Provider Social History Tobacco [...] Priority Date/Time Associated Diagnosis Comments ZZCOVID-19 TEST [facility] PCR Today 10/31/2021 22:55 EDT COVID-19 TESTING Routine 10/31/2021 22:5 5 EDT documented in this encounter Results * COVID-19 TEST [facility] PCR (10/31/2021 22:55 EDT) Swab 10/31/2021 22:5 5 EDT 11/01/2021 17:26 EDT us Provider Outr Resulting Lab MICROBIOLOGY - GENER AL ORDERABLES Final Result [facility] [address] [place] [address] * COVID-19 TESTING (10/31/2021 22:55 EDT) COVID-19 rt-PCR Result Negative Negative 11/02/2021 11:29 EDT [facility] Comment: This test has [...] performed using the sunshine SARS-CoV-2 assay ([employer] on the Sunshine 6800 System Performing Lab Sunshine 6800 [facility] 11/02/2021 11:29 EDT [facility] Swab 10/31/2021 22:5 5 EDT 11/01/2021 17:26 EDT us Provider Outr Resulting Lab MICROBIOLOGY - GENER AL ORDERABLES Final Result [facility] [address] [place] [address] documented in this encounter Visit Diagnoses Not on filedocumented in this encounter
--- OUTSIDE RECORDS SUMMARY | 2024-03-22 20:14 | XMS_ITS | Clinical Summary ---
Author Organization [facility] Address [address] [place] [address] Care Team Providers Care Virtual Recruiter Name Role Phone Unavailable Primary Care Provider Unavailabl e Encounters Date Type Department Care Team Description 02/18/2024 Lab Requisition [facility] Pathology & Laboratory [facility] [address] [place] [address] Outr Resulting Lab, Provider 02/04/2024 Lab Requisition [facility] Pathology & Laboratory [facility] [address] [place] [address] Outr Resulting Lab, Provider from Last 3 [...] gonorrhoeae Result Negative Negative 02/19/2024 12:05 EST [facility] Chlamydia trachomatis Result Negative Negative 02/19/2024 12:05 EST [facility] Urine URINE / Unknown 02/17/2024 1 5:05 EST 02/18/2024 18:19 EST Narrative [facility] - 02/19/2024 12:05 EST A first catch urine specimen is acceptable for detection of Gonorrhea and Chlamydia, but might detect up to 10% fewer infections when compared with vaginal swab samples. us Provider Outr Resulting Lab MICROBIOLOGY - GENER AL ORDERABLES Final Result Performing Organization Address [facility]/ZIP Co de Phone Number [facility] [address] [place], [place] [id number] * HIV 1/2 ANTIGEN AND ANTIBODY, 4TH GENERATION (02/03/2024 10:10 EST) [facility] HIV 1 and 2 Antibody/p24 Antigen, 4th Generation Negative Negative 02/06/2024 10:17 EST [facility] Comment:If acute HIV-1 infec tion is suspected in a high risk patient, submit plasma specimen for HIV-1 RNA quantitation test. Blood VENOUS BLOOD / Unknown 02/03/2024 10:10 EST 02/05/2024 17:13 EST Narrative [facility] - 02/06/2024 10:17 EST Fourth Generation assay performed on the Siemens Oreconaur XPT. us Provider Outr Resulting Lab IMMUNOLOGY AND SEROL OGY ORDERABLES Final Result Performing Organization Address City/[facility]/ZIP Co de Phone Number [facility] [address] [place] [address] from Last 3 Months
--- OUTSIDE RECORDS SUMMARY | 2024-03-22 20:14 | XMS_ITS | Encounter Summary ---
Author Organization [facility] Address [facility] [place] [address] Care Team Providers Care Director Nurses' Registry Name Role Phone Krystal Kurtz APRN Primary Care Provider Encounter Details Date Type Department Care Team (Late st Contact Info) Description 01/04/2022 Telephone Pediatric [place] [phone] Diane Melgar RN Social History [...] Of 1010 arrival time on 01/07/22 for EGD/[place] at 4T. Reviewed preparation and NPO after midnight. Allowed small sip of water/ольга tracy/apple juice until 2 hrs prior to arrival time. Only necessary medications such as seizure meds day of. Denies recent illness. documented in this encounter Plan of Treatment Not on file documented as of this encounter Visit Diagnoses Not on filedocumented in this encounter Care Teams Director Nurses' Registry Relationship Specialty Start Date End Date Krystal Kurtz APRN PCP - General Family Medicine 09/23/21 01/22/24 documented as of this encounter
--- OUTSIDE RECORDS SUMMARY | 2024-03-22 20:14 | XMS_ITS | Encounter Summary ---
Author Organization [facility] Address [address] [place] [address] Care Team Providers Care Gas Meter Mechanic Name Role Phone Unavailable Primary Care Provider Unavailabl e Encounter Details Date Type Department Care Team (Late st Contact Info) Description 09/13/2021 Lab Requisition [facility] Pathology & Laboratory Medicine - [facility] [address] [place] [address] Outr Resulting Lab, Provider Social History Tobacco [...] gonorrhoeae Result Negative Negative 09/14/2021 15:16 EDT [facility] Chlamydia trachomatis Result Negative Negative 09/14/2021 15:16 EDT [facility] Urine URINE / Unknown 09/12/2021 1 4:40 EDT 09/13/2021 17:10 EDT Narrative [facility] - 09/14/2021 15:16 EDT A first catch urine specimen is acceptable for detection of Gonorrhea and Chlamydia, but might detect up to 10% fewer infections when compared with vaginal and endocervical swab samples. us Provider Outr Resulting Lab MICROBIOLOGY - GENER AL ORDERABLES Final Result [facility] [address] [place] [address] documented in this encounter Visit Diagnoses Not on filedocumented in this encounter
--- OUTSIDE RECORDS SUMMARY | 2024-03-22 20:14 | XMS_ITS | Encounter Summary ---
Author Organization [facility] [place] [address] Care Team Providers Care Senior Director Of [employer] Technology Solutions Name Role Phone Krystal Kurtz APRN Primary Care Provider [phone] Reason for Referral * Consultation (Routine) - Closed Specialty Diagnoses / Procedures Referred By Contac t Referred To Contact Nutrition Diagnoses Weight loss Chronic nausea Chronic abdominal pain Cait Alexandre APRN [facility] [address] [place] [address] [facility] Pedi Nutrition [address] [place] [phone] Referral ID Status Reason Start Date Expiration Date V isits Requested Visits Authorized [id number] Closed Continuity of Care 12/31/2021 12/31/2022 1 1 Reason for Visit * Consultation (Routine) - Closed Specialty Diagnoses / Procedures Referred By Contact Referred To Contact Pediatric Gastroenterology Diagnoses Abdominal pain, unspecified abdominal location Unintended weight loss Natividad Barker MD [address] [place] [address] [facility] Pedi Gastro [address] [place] [phone] Referral ID Status Reason Start Date Expiration Date V isits Requested Visits Authorized [id number] Closed Consult, Test & Treat PCP Updated and/or Approved 09/25/2021 09/25/2022 6 6 Encounter Details Date Type Department Care Team (Latest Contact Info) Description 12/31/2021 1:00 PM EST Office Visit [place] [address] Cait Alexandre APRN [facility] [place]ATR[place] [address] Weight loss; BRBPR (bright red blood per [...] has been scheduled for a Colonoscopy at [facility] with Dr. Jayna Coats on Friday, r 2021. Pre-Procedure Calls: The business day before the procedure, you will receive a call from the supervisor stave finishing from [facility] office with arrival time [...] to use. Coupons can be found at [employer]. Three days prior to colonoscopy: Purchase Gatorade?? 20 to 96 oz. (see dosing below; do not purchase Gatorade zero or G2) Purchase these dzcg-mhl-clgwxid medications: One 510 gram bottle of Miralax?? [...] procedure: Stop clear liquids. Please contact the [facility] office at with any [...] drinking 1-2 Boost/Ensure per day -Referral to Director Of Neurology placed -Try and take littler sips of Pedialyte or Gatorade for rehydration. -Please return to PCP on Friday for repeat pulse check -Plan to follow up -via telehealth 2 weeks following endoscopy documented in this encounter Progress Notes * Cait Alexandre APRN - 12/31/2021 1:00 PM ESTSummary: Initital Pediatric GI Visit 01/02/22 ?Krystal Kurtz APRN [address] [place] [address] Re: Marilu Dee [phone] 2005 16 y.o. Dear ??Krystal Kurtz??, ? It was a pleasure seeing ??Marilu? for initial consultation at [facility] Pediatric Gastroenterology clinic for chronic abdominal pain, weight loss, rectal bleeding and reflux. ?? HPI Marilu is here today with mom(Maria Guadalupe), Dad (Mehul) and younger sister (Janell) . They are coming from [place], [place]. -16-year-old female presenting with chronic abdominal [...] had seen another GI provider up in [place]. Has had negative celiac screening and previous normal sed rate and CRP. She was prescribed Levsin which she has not found helpful. -She has been scheduled for an EGD and [facility] several times however had several reasons it [...] %ile based on CDC (Girls, 2-20 Years) jbdubz-ore-cll data based on Weight recorded on12/31/2021. Height/Length: 45 %ile based on CDC (Girls, 2-20 Years) Khmtqdg-emm-shd data based on Stature recorded on 12/31/2021. BMI: <1 %ile based on CDC (Girls, 2-20 Years) BMI-for-age based on body measurements available as of 12/31/2021. Weight for length: Normalized bnvhcd-okg-cvwqomker length data not available for patients older [...] well-regardless I placed a referral to our curriculum counselor as she is at risk for significant [...] drinking 1-2 Boost/Ensure per day -Referral to Director Of Neurology placed -Try and take littler sips of [...] has been scheduled for a Colonoscopy at [facility] with Dr. Jayna Coats on 2021. Pre-Procedure Calls: The business day before the procedure, you will receive a call from the supervisor stave finishing from [facility] office with arrival time [...] to use. Coupons can be found at [employer]. Three days prior to colonoscopy: Purchase Gatorade?? 20 to 96 oz. (see dosing below; do not purchase Gatorade zero or G2) Purchase these wnpd-iqf-nrssnwf medications: ??? One 510 gram bottle of [...] procedure: Stop clear liquids. Please contact the [facility] office at with any [...] drinking 1-2 Boost/Ensure per day -Referral to Director Of Neurology placed -Try and take littler sips of Pedialyte or Gatorade for rehydration. -Please return to PCP on Friday for repeat pulse check -Plan to follow up -via telehealth 2 weeks following endoscopy Thank you for involving me in ??Marilu?'s care. If you have any questions, please feel free to contact me. ? Sincerely, Cait Alexandre APRN Department of Pediatric Gastroenterology [facility] documented in this encounter Plan of [...] Barbiturates Screen, Urine None Detected None Detected [facility] Comment: The barbiturate screen detects [...] Benzodiazepines Screen, Urine None Detected None Detected [facility] Comment: The benzodiazepines screen detects [...] Cocaine Screen, Urine None Detected None Detected [facility] Comment: The cocaine metabolites screen detects benzoylecgonine (Cocaine Metabolite) at concentrations >150 ng/mL. A ? Presumptive Positive? result indicates that the screening result was positive but has not yet been confirmed by a highly-specific method. As with any screen, occasional false positive results from cross-reacting substances may occur. Not for Medico-Legal Purposes. Methadone Metabolites Screen, Urine None Detected None Detected [facility] Comment: The methadone metabolite screen detects EDDP (major methadone metabolite) at concentrations >100 ng/mL. A ? Presumptive Positive? result indicates that the screening result was positive but has not yet been confirmed by a highly-specific method. As with any screen, occasional false positive results from cross-reacting substances may occur. Not for Medico-Legal Purposes. Opiate Screen, Urine None Detected None Detected [facility] Comment: The opiates screen detects [...] Cannabinoid Screen, Urine None Detected None Detected [facility] Comment: The marijuana metabolites screen detects the THC metabolite (09-jpa-5-carboxy-delta 9-THC) at concentrations >20 ng/mL. A ? Presumptive Positive? result indicates that the screening result was positive but has not yet been confirmed by a highly-specific method. As with any screen, occasional false positive results from cross-reacting substances may occur. Not for Medico-Legal Purposes. Oxycodone Screen, Urine None Detected None Detected [facility] Comment: The oxycodone screen detects oxycodone and oxymorphone at concentrations >100 ng/mL. A ? Presumptive Positive? result indicates that the screening result was positive but has not yet been confirmed by a highly-specific method. As with any screen, occasional false positive results from cross-reacting substances may occur. Not for Medico-Legal Purposes. Buprenorphine Screen, Urine None Detected None Detected [facility] Comment: The buprenorphine screen detects [...] characteristics of this test were determined by [facility] in accordance with CLIA requirements. This laboratory is qualified under CLIA to perform high-complexity testing. Fentanyl Screen, Urine None Detected None Detected [facility] Comment: The fentanyl screen detects [...] characteristics of this test were determined by [facility] in accordance with CLIA requirements. This laboratory is qualified under CLIA to perform high-complexity testing. Tricyclics Screen, Urine None Detected None Detected [facility] Comment: The tricyclics screen detects [...] characteristics of this test were determined by [facility] in accordance with CLIA requirements. This laboratory is qualified under CLIA to perform high-complexity testing. Ethanol Screen, Urine None Detected None Detected [facility] Comment:This urine ethanol a ssay detects ethanol at concentrations >/= 100 mg/L. Amphetamines Screen, Urine None Detected None Detected [facility] Comment: The amphetamine screen detects d-amphetamine and d-methamphetamine at concentrations >300 ng/mL. A ? Presumptive Positive? result indicates that the screening result was positive but has not yet been confirmed by a highly-specific method. As with any screen, occasional false positive results from cross-reacting substances may occur. Not for Medico-Legal Purposes. Adulterants Screen, Urine None Detected None Detected [facility] Comment: No adulteration or dilution [...] Alexandre APRN CHEMISTRY ORDERABLES Performing Organization Address [facility] Co de Phone Number [facility] [place] [address] * Rapid Drug Screen, Urine (DEANDRE Request) (12/31/2021 2:19 PM EST) DEANDRE Conf Requested Yes [facility] DEANDRE Requested See Comment [facility] Comment:Refer to Rapid Drug Screen w/ Confirmation, Urine for results. Urine Urine / Unknown 12/31/2021 2 :19 PM EST 12/31/2021 2:26 PM EST Narrative Resulting Agency Comment Spec In Lab Cait Alexandre APRN URINE ORDERABLES Performing Organization Address City/[facility] Co de Phone Number [facility] [place] [address] documented in this encounter Visit Diagnoses Diagnosis Weight loss Loss of weight BRBPR (bright red blood per rectum) Hemorrhage of rectum and anus Chronic nausea Nausea alone Chronic abdominal pain Abdominal pain, unspecified site Tachycardia Tachycardia, unspecified documented in this encounter Care Teams Senior Director Of [employer] Relationship Specialty Start Date End Date Krystal Kurtz APRN PCP - General Family Medicine 09/23/21 01/22/24 documented as of this encounter
--- OUTSIDE RECORDS SUMMARY | 2024-03-22 20:14 | XMS_ITS | Encounter Summary ---
Author Organization [facility] Address [address] [place] [address] Care Team Providers Care Brim Blocker Name Role Phone Unavailable Primary Care Provider Unavailabl e Encounter Details Date Type Department Care Team (Late st Contact Info) Description 02/12/2023 Lab Requisition [facility] Pathology & Laboratory Medicine - [facility] [address] [place] [address] Outr Resulting Lab, Provider Social History Tobacco [...] gonorrhoeae Result Negative Negative 02/13/2023 14:24 EST [facility] Chlamydia trachomatis Result Negative Negative 02/13/2023 14:24 EST [facility] Urine URINE / Unknown 02/12/2023 1 1:14 EST 02/12/2023 18:42 EST Narrative [facility] - 02/13/2023 14:24 EST A first catch urine specimen is acceptable for detection of Gonorrhea and Chlamydia, but might detect up to 10% fewer infections when compared with vaginal and endocervical swab samples. us Provider Outr Resulting Lab MICROBIOLOGY - GENER AL ORDERABLES Final Result [facility] [address] [place] [address] documented in this encounter Visit Diagnoses Not on filedocumented in this encounter
--- OUTSIDE RECORDS SUMMARY | 2024-03-22 20:14 | XMS_ITS | Encounter Summary ---
Author Organization [facility] Address [address] [place] [address] Care Team Providers Care Cosmetic Sales Advisor Name Role Phone Unavailable Primary Care Provider Unavailabl e Encounter Details Date Type Department Care Team (Late st Contact Info) Description 10/15/2021 Lab Requisition [facility] Pathology & Laboratory Medicine - [facility] [address] [place] [address] Outr Resulting Lab, Provider Social History Tobacco [...] gonorrhoeae Result Negative Negative 10/17/2021 15:34 EDT [facility] Chlamydia trachomatis Result Negative Negative 10/17/2021 15:34 EDT [facility] Swab ENTIRE WALL OF CERVIX / Unknown 10/14/2021 21:25 EDT 10/16/2021 16:48 EDT us Provider Outr Resulting Lab MICROBIOLOGY - GENER AL ORDERABLES Final Result [facility] [address] [place] [address] documented in this encounter Visit Diagnoses Not on filedocumented in this encounter
--- OUTSIDE RECORDS SUMMARY | 2024-03-22 20:14 | XMS_ITS | Encounter Summary ---
Author Organization [facility] Address [address] [place] [address] Care Team Providers Care Community Health Educator Name Role Phone Unavailable Primary Care Provider Unavailabl e Encounter Details Date Type Department Care Team (Late st Contact Info) Description 06/12/2023 Lab Requisition [facility] Pathology & Laboratory Medicine - [facility] [address] [place] [address] Outr Resulting Lab, Provider Social History Tobacco [...] gonorrhoeae Result Negative Negative 06/13/2023 14:32 EDT [facility] Chlamydia trachomatis Result Negative Negative 06/13/2023 14:32 EDT [facility] Urine URINE / Unknown 06/11/2023 1 2:20 EDT 06/12/2023 17:34 EDT Narrative [facility] - 06/13/2023 14:32 EDT A first catch urine specimen is acceptable for detection of Gonorrhea and Chlamydia, but might detect up to 10% fewer infections when compared with vaginal and endocervical swab samples. us Provider Outr Resulting Lab MICROBIOLOGY - GENER AL ORDERABLES Final Result [facility] [address] [place] [address] documented in this encounter Visit Diagnoses Not on filedocumented in this encounter
--- OUTSIDE RECORDS SUMMARY | 2024-03-22 20:14 | XMS_ITS | Encounter Summary ---
[place] [address] Care Team Providers Care Top Lift Nailer Name Role Phone Krystal Kurtz APRN Primary Care Provider Reason for Referral * Consultation (Routine) - Closed Specialty Diagnoses / Procedures Referred By Contact Referred To Contact Pediatric Gastroenterology Diagnoses Abdominal pain, unspecified abdominal location Unintended weight loss Natividad Barker MD [address] [place] [id number] [facility] Pedi Gastro [address] [place] [phone] Referral ID Status Reason Start Date Expiration Date V isits Requested Visits Authorized [id number] Closed Consult, Test & Treat PCP Updated and/or Approved 09/25/2021 09/25/2022 6 6 Encounter Details Date Type Department Care Team (Late st Contact Info) Description 09/25/2021 Transcribe Orders eDH Incoming Referrals [phone] Natividad Barker MD [address] [place] [address] Abdominal pain, unspecified abdominal location; [...] loss documented in this encounter Care Teams Top Lift Nailer Relationship Specialty Start Date End Date Krystal Kurtz APRN PCP - General Family Medicine 09/23/21 01/22/24 documented as of this encounter
--- OUTSIDE RECORDS SUMMARY | 2024-03-22 20:14 | XMS_ITS | Encounter Summary ---
Author Organization [facility] Address [address] [place] [address] Care Team Providers Care Tunnel Elastic Operator Lockstitch Name Role Phone Unavailable Primary Care Provider Unavailabl e Encounter Details Date Type Department Care Team (Late st Contact Info) Description 08/06/2021 Lab Requisition [facility] Pathology & Laboratory Medicine - [facility] [address] [place] [address] Outr Resulting Lab, Provider Social History Tobacco [...] gonorrhoeae Result Negative Negative 08/08/2021 12:47 EDT [facility] Chlamydia trachomatis Result Negative Negative 08/08/2021 12:47 EDT [facility] Swab ENTIRE WALL OF CERVIX / Unknown 08/06/2021 2:10 EDT 08/06/2021 17:41 EDT us Provider Outr Resulting Lab MICROBIOLOGY - GENER AL ORDERABLES Final Result [facility] [address] [place] [address] documented in this encounter Visit Diagnoses Not on filedocumented in this encounter
--- OUTSIDE RECORDS SUMMARY | 2024-03-22 20:14 | XMS_ITS | Encounter Summary ---
Author Organization [facility] Address [address] [place] [address] Care Team Providers Care Tobacco Checkout Clerk Name Role Phone Unavailable Primary Care Provider Unavailabl e Encounter Details Date Type Department Care Team (Late st Contact Info) Description 02/04/2024 Lab Requisition [facility] Pathology & Laboratory Medicine - [facility] [address], [place] [id number] Outr Resulting Lab, Provider Social History Tobacco [...] 4th Generation Negative Negative 02/06/2024 10:[address] [facility] Comment:If acute HIV-1 infec tion is suspected in a high risk patient, submit plasma specimen for HIV-1 RNA quantitation test. Blood VENOUS BLOOD / Unknown 02/03/2024 10:10 EST 02/05/2024 17:13 EST Narr[address] [facility] - 02/06/2024 10:17 EST Fourth Generation assay performed on the Siemens Centaur XPT. us Provider Outr Resulting Lab IMMUNOLOGY AND SEROL OGY ORDERABLES Final Result [facility] [address] [place] [address] documented in this encounter Visit Diagnoses Not on filedocumented in this encounter
[2024-03-22] MEDS: Hyoscyamine 0.5 MG/ML VIAL 0.25 MG IM (20:18)
[2024-03-22] MEDS: Ketorolac 15 MG/ML VIAL IM (20:19)
[2024-03-22 21:00] VITALS: BP 116/62; PULSE 74; RESP 14; O2SAT 98
--- NOTE | 2024-03-24 16:58 | W.ED.GENAD ---
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 cyclobenzaprine 10 mg tablet 10 mg PO TID PRNQty: 10 0RF olanzapine 5 mg tablet,disintegrating 5 mg PO DAILY Patient Comments: DISSOLVE A 1/2 TABLET BY MOUTH DAILY FOR 3 DAYS THEN INCREASE TO 1 TABLET THEREAFTER Discharge Instructions Instructions: Abdominal Pain, Adult ED Additional Instructions: I have placed a referral to [facility] gynecology You may try taking the Bentyl to see if it helps your symptoms This can cause some constipation so if you start having difficulty having bowel movements I recommend stopping this medication Please return should you have fever chills, or should any new concerns arise Will also place a referral to surgery for endoscopy Referrals: Amber Chacon DO [OSTEOPATHIC DOCTOR] - Discharge Data Discharge Date/Time-TO BE ENTERED AT DEPARTURE: 03/22/24 21:00 HPI General Date/Time Provider Initiated Documentation: 03/22/24 19:36. HPI Narrative: The patient is a 19-year-old female presenting with recurrent pelvic pain, with a history of multiple visits for the same issue. She is followed by an EMERGENCY DEPARTMENT TECHNICIAN and primary care physician. She reports a similar presentation to an evaluation conducted a month prior to this visit. At that time, she underwent both CT and ultrasound examinations, which were reported as negative. She followed up with her EMERGENCY DEPARTMENT TECHNICIAN, who referred her back to her primary care physician, suggesting that endometriosis was unlikely. She expresses uncertainty about her current situation, experiencing recurrent pain of unknown origin. She does not believe there is a chance of as she is not sexually active currently nor has she been in the past. She uses Depo-Provera in an attempt to alleviate her pelvic discomfort. She reports no nausea, vomiting, or fever. There has been no change in the nature of her pain, and she reports no exacerbating or alleviating factors. She has not sought surgical consultation at this point. Occasionally, the pain intensifies with eating and drinking, but various heartburn interventions have not provided relief. Related Data Home Medications ?Medication ?Instructions ?Recorded ?Confirmed medroxyprogesterone 150 mg/mL 150 mg IM Q12W #1 mL 02/10/24 03/24/24 intramuscular syringe (Depo-Provera) cyclobenzaprine 10 mg tablet 10 mg PO TID PRN #10 tabs 03/05/24 03/24/24 prochlorperazine maleate 5 mg 5 mg PO TID PRN nausea and 03/19/24 03/22/24 tablet (Compazine) vomiting #60 tabs dicyclomine 20 mg tablet 20 mg PO BID #20 tabs 03/22/24 olanzapine 5 mg disintegrating 5 mg PO DAILY 03/22/24 03/22/24 tablet Previous Rx's ?Medication ?Instructions ?Recorded medroxyprogesterone 150 mg/mL 150 mg IM Q12W #1 mL 02/10/24 intramuscular syringe (Depo-Provera) cyclobenzaprine 10 mg tablet 10 mg PO TID PRN #10 tabs 03/05/24 prochlorperazine maleate 5 mg 5 mg PO TID PRN nausea and 03/19/24 tablet (Compazine) vomiting #60 tabs dicyclomine 20 mg tablet 20 mg PO BID #20 tabs 03/22/24 Allergies Allergy/AdvReac Type Severity Reaction Status Date / Time fluconazole (From Diflucan) Allergy Mild nausea Verified 03/22/24 19:17 vomiting Penicillins Allergy hives Verified 03/22/24 19:17 General Stated Complaint: Abd Prob WINNIE: 3 Exam Narrative Exam Narrative: General Appearance: The patient is alert and oriented, not in acute distress. Vital signs: Vitals are stable. HEENT: Within normal limits. Respiratory: Within normal limits. Gastrointestinal: There is some mild reproducible tenderness in the right adnexal region of the abdomen. No McBurney's point tenderness. Genitourinary: Within normal limits. Back, Musculoskeletal: No CVA tenderness. Skin: Warm and dry, no rash. Neurological: Normal. Course Vital Signs Vital signs: Vital Signs Temperature 36.8 C 03/22/24 19:13 Pulse 92 H 03/22/24 19:13 Respiratory Rate 16 03/22/24 19:13 Blood Pressure 118/81 03/22/24 19:13 Pulse Oximetry 99 03/22/24 19:13 Temperature 36.8 C 03/22/24 19:13 Temperature Source Oral 03/22/24 19:13 Pulse 74 03/22/24 21:00 Respiratory Rate 14 03/22/24 21:00 Blood Pressure 116/62 03/22/24 21:00 Blood Pressure Position Sitting 03/22/24 19:13 Pulse Oximetry 98 03/22/24 21:00 Oxygen Delivery Method Room Air 03/22/24 19:13 Oxygen Flow Rate 0 03/22/24 19:13 Pain Level 0 03/22/24 21:00 Lab/Test Results Lab/Test Results: POC- Test(urine) Negative Medical Decision Making Initial Assessment: 19-year-old female with recurrent pelvic pain, history of multiple visits, followed by OBGYN and primary care physician. Similar presentation to a month ago with negative CT and ultrasound. Uncertain etiology, denies , nausea, vomiting, fever, or changes in pain. Mild reproducible tenderness in the right adnexal region, no acute distress, stable vitals. Differential Diagnosis: - Endometriosis: Unlikely per OBGYN, sister with similar symptoms, minimal relief from Depo-Provera. - Gastrointestinal etiology: Pain occasionally worsened with eating and drinking, no relief from heartburn interventions. - STDs: Low suspicion as patient is not sexually active. ED Course: - Administered Toradol and Bentyl, patient reported improvement. - Provided several tablets of Bentyl for home use. - Referral to surgery and second opinion at [facility], EMERGENCY DEPARTMENT TECHNICIAN at patient request. - Encouraged reevaluation for changes in pain, significant worsening, nausea, vomiting, or fever. Final Assessment: Recurrent pelvic pain with uncertain etiology, minimal relief from Depo-Provera, low suspicion for STDs, potential benefit from endoscopy or colonoscopy, and further assessment for endometriosis. Administered Toradol and Bentyl with some improvement, provided Bentyl for home use, and arranged referrals. Clinical Impression: - Recurrent pelvic pain Disposition: - Follow-Up: Referral to surgery and second opinion at [facility], EMERGENCY DEPARTMENT TECHNICIAN. MDM Components Evaluation: - Number of Differential Diagnoses or Management Options: Endometriosis, Gastrointestinal etiology, STDs. - Amount and Complexity of Data Reviewed: Previous CT imaging, ultrasound, and laboratory tests. - Risk of Complication and Morbidity or Mortality: Low suspicion for STDs, potential benefit from further gastrointestinal and endometriosis assessment. Quality:WYOH Health Related Social Needs: No Data to Display PFSH All Active Problems (Updated 03/22/24 @ 20:52 by KEREN Carrero) Pelvic pain (Acute) Nausea (Acute) Vaginal discharge (Acute) Bladder pain (Acute) Depo-Provera contraceptive status (Acute) Vaginal burning (Acute) Abnormal uterine bleeding (AUB) (Acute) 04/2023. Brown vaginal discharge while using DepoProvera. Chronic pelvic pain in female (Acute) Abdominal pain (Acute) Dyspareunia due to medical condition in female (Acute) RLQ abdominal pain (Acute) GERD (gastroesophageal reflux disease) (Chronic) refractory to PPI therapy Medical History Personal history of noncompliance with medical treatment Irritable bowel syndrome with constipation denies issues as of 02/12/23 Pelvic pain Bacterial vaginosis Yeast infection Frequent UTI Surgical History History of dental surgery No significant past surgical history Social History Smoking/Tobacco Use Status: Current every day Tobacco Type: e-cigarettes Smoking risk assessment performed?: Yes Alcohol Intake: never Drug use: Never Substance use type: does not use Household members: significant other and other Details: [facility] 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 Sexually active: Yes Do you feel safe at home: Yes Do you feel safe in your relationship?: Yes
== END 2024-03-22 21:00 | disposition home or self-care (01) ==
PROVIDERS: Emergency Provider Physician Assistant
DX: R10.31 Right lower quadrant pain
CPT/HCPCS: 81025; 96372; 99284; 99283; J1885; J1980

== ENCOUNTER 2024-04-03 02:17 | Emergency (ER) | payer MEDICAID, SELFPAY ==
[2024-04-03 02:30] VITALS: BP 114/64; PULSE 119; RESP 20; TEMP 36.9; O2SAT 100
[2024-04-03] MEDS: Ondansetron O.D.T. 4 MG TABEF PO (03:05)
[2024-04-03 03:16] LABS: COVID-19 PCR Negative (Negative); Influenza A PCR Positive (Negative); Influenza B PCR Negative (Negative); RSV PCR Negative (Negative)
[2024-04-03 03:20] LABS: Source Nasopharynx
[2024-04-03] MEDS: Ibuprofen 600 MG TAB PO (03:21)
[2024-04-03] MEDS: Benzonatate 100 MG CAP PO (03:21)
[2024-04-03 03:23] VITALS: BP 120/68; PULSE 115; RESP 16; O2SAT 99
--- NOTE | 2024-04-03 03:28 | ED.GENADUL_ITS ---
Discharge Plan Disposition Patient Disposition: Home Condition: Stable Discharge Details Clinical Impression: Influenza A Primary Care Provider: Unknown,Unknown ED Provider: Anisa Cassidy Home Meds and New Rx's Prescriptions: New benzonatate 100 mg capsule 100 mg PO TID PRNQty: 14 0RF oseltamivir [Tamiflu] 75 mg capsule 75 mg PO Q12H 5 Days Qty: 10 0RF No Action medroxyprogesterone [Depo-Provera] 150 mg/mL syringe 150 mg IM Q12W Qty: 1 4RF Rx Instructions: please allow pt to pick up man med earlier than 12w interval. Discharge Instructions Instructions: Flu, Adult ED Additional Instructions: You were seen in the emergency department today for evaluation of cough, nausea, vomiting and fever and were found to have influenza A. In our department you do full physical examination performed, and received medications for management of fever and cough. We have started you on Tamiflu after discussing the risks and benefits of this medication, which you should take for the next 5 days. Please continue to use [id number] medication such as Tylenol and ibuprofen, and maintain good hydration and nutrition. I did send you home with a prescription for Tessalon Perles which can be used for cough, and a short course of Zofran which can be used for nausea. Please follow-up with your primary care provider in the next few days to discuss this visit and any symptoms that change, worsen, or persist. Thank you for allowing us to be part of your care. HPI General Mode of arrival: ambulatory . Date/Time Provider Initiated Documentation: 04/03/24 02:28 . Limitations to Documentation: no limitations . Information obtained by: patient and old records reviewed . HPI Narrative: HPI: This is a 19-year-old female patient with a past medical history significant for GERD, chronic pelvic pain, prevent presenting for evaluation of fever, cough, and nausea with vomiting. The patient reports that she has had 3 days of symptoms, did have a recent sick contact from a family member. States that she has been managing her symptoms with [id number]-[id number] medications including Tylenol, ibuprofen, and cough suppressants. Last dose of Tylenol was an hour and a half ago. She reports that she has had difficulty with foods today, is typically able to keep some water but not all down. Her cough is the most bothersome symptom, which keeps her up at night and has prevented her from sleeping for the last 24 hours. The patient is endorsing body aches. She also states that she typically gets a very fast heart rate when she is sick or anxious in the hospital. Exam: Gen: Awake and alert, in no apparent distress HEENT: Non-icteric sclera Neck: Supple Lungs: No apparent respiratory distress, normal respiratory effort. Lung sounds clear and equal without wheezes, rhonchi, rales CV: Appears well perfused, heart with tachycardic rate but regular rhythm, strong distal pulses Abdomen: Non-distended, soft, nontender MSK: Moves 4 extremities without apparent limitation in ROM, no peripheral edema Skin: Visualized skin without rashes, cyanosis. Neuro: Normal Gait, no obvious focal deficits or facial asymmetry. Speaks in full, clear sentences. Psych: Appropriate for situation. MDM: This is a 19-year-old female patient presenting for evaluation of cough, fever, and vomiting. Differential includes but is not limited to viral upper respiratory infection, gastroenteritis, no focal lung findings or hypoxia to significantly increase my concern for pneumonia and the duration of symptoms is brief. She has no abdominal tenderness to suggest severe intra-abdominal pathology, and the brief duration of symptoms does reassure me against severe metabolic and electrolyte derangements, kidney injury, dehydration. We will obtain a Fluvid, and I did discuss with the patient's symptom management. At this time we will proceed with Zofran, Tessalon Perles, and a dose of ibuprofen. Will at this time I do not see any indication to proceed with advanced imaging, and we can hold on laboratory studies and p.o. challenge this patient to ensure that she is able to maintain hydration in the outpatient environment. ED Course: Flu a positive, patient had symptom improvement with the medications noted above, tolerated and ample amount of p.o. fluid and I am reassured that she will be able to maintain her hydration in the outpatient environment. I did provide her with a take-home bottle of Zofran, a prescription for Tessalon Perles, we had a shared decision-making conversation the patient is greatly desiring to start Tamiflu despite being outside of the optimal 48-hour window. This was sent to her pharmacy. At this time, the patient has had a full medical evaluation and is safe for discharge to home. They are hemodynamically stable, ambulatory, and tolerating PO. They are understanding of the follow-up plan and return precautions. They left our facility without incident. Anisa Cassidy MD Related Data Home Medications ?Medication ?Instructions ?Recorded ?Confirmed medroxyprogesterone 150 mg/mL 150 mg IM Q12W #1 mL 02/10/24 04/03/24 intramuscular syringe (Depo-Provera) benzonatate 100 mg capsule 100 mg PO TID PRN #14 caps 04/03/24 oseltamivir 75 mg capsule (Tamiflu) 75 mg PO Q12H 5 days #10 caps 04/03/24 Previous Rx's ?Medication ?Instructions ?Recorded medroxyprogesterone 150 mg/mL 150 mg IM Q12W #1 mL 02/10/24 intramuscular syringe (Depo-Provera) benzonatate 100 mg capsule 100 mg PO TID PRN #14 caps 04/03/24 oseltamivir 75 mg capsule (Tamiflu) 75 mg PO Q12H 5 days #10 caps 04/03/24 Allergies Allergy/AdvReac Type Severity Reaction Status Date / Time fluconazole (From Diflucan) Allergy Mild nausea Verified 04/03/24 02:35 vomiting Penicillins Allergy hives Verified 04/03/24 02:35 General Stated Complaint: Fever WINNIE: 4 Course Vital Signs Vital signs: Vital Signs Temperature 36.9 C 04/03/24 02:30 Pulse 119 H 04/03/24 02:30 Respiratory Rate 20 04/03/24 02:30 Blood Pressure 114/64 04/03/24 02:30 Pulse Oximetry 100 04/03/24 02:30 Temperature 36.9 C 04/03/24 02:30 Temperature Source Oral 04/03/24 02:30 Pulse 115 H 04/03/24 03:23 Respiratory Rate 16 04/03/24 03:23 Blood Pressure 120/68 04/03/24 03:23 Blood Pressure Position Supine 04/03/24 02:30 Pulse Oximetry 99 04/03/24 03:23 Oxygen Delivery Method Room Air 04/03/24 03:23 Oxygen Flow Rate 0 04/03/24 03:23 Pain Level 0 04/03/24 02:30 Lab/Test Results Lab/Test Results: Laboratory Tests Range/Units 04/03/24 04/03/24 02:37 02:38 COVID-19 Source Nasopharynx Cancelled SARS-CoV-2 (PCR) (Negative) Negative Cancelled Influenza Type A (PCR) (Negative) Positive A Cancelled Influenza Type B (PCR) (Negative) Negative Cancelled RSV (PCR) (Negative) Negative Cancelled Medical Decision Making Quality:SDOH Health Related Social Needs: No Data to Display PFSH All Active Problems (Updated 04/03/24 @ 03:28 by Anisa Cassidy MD) Influenza A (Acute) Pelvic pain (Acute) Nausea (Acute) Vaginal discharge (Acute) Bladder pain (Acute) Depo-Provera contraceptive status (Acute) Vaginal burning (Acute) Abnormal uterine bleeding (AUB) (Acute) 04/2023. Brown vaginal discharge while using DepoProvera. Chronic pelvic pain in female (Acute) Abdominal pain (Acute) Dyspareunia due to medical condition in female (Acute) RLQ abdominal pain (Acute) GERD (gastroesophageal reflux disease) (Chronic) refractory to PPI therapy Medical History Personal history of noncompliance with medical treatment Irritable bowel syndrome with constipation denies issues as of 02/12/23 Pelvic pain Bacterial vaginosis Yeast infection Frequent UTI Surgical History History of dental surgery No significant past surgical history Social History Smoking/Tobacco Use Status: Current every day Tobacco Type: e-cigarettes Smoking risk assessment performed?: Yes Alcohol Intake: never Drug use: Never Substance use type: does not use Household members: significant other and other Details: lives [facility]. 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 Sexually active: Yes Do you feel safe at home: Yes Do you feel safe in your relationship?: Yes
[2024-04-03] MEDS: Ondansetron O.D.T. 4 MG TABEF, 3 TABS/BTL PO (03:33)
== END 2024-04-03 03:37 | disposition home or self-care (01) ==
PROVIDERS: Emergency Provider Emergency Medicine
DX: J09.X2 Influenza due to identified novel influenza A virus with other respiratory manifestations (principal); R05.9 Cough, unspecified; R50.9 Fever, unspecified; R11.0 Nausea
CPT/HCPCS: 87637; 99283; 99284

== ENCOUNTER 2024-04-07 20:48 | Emergency (ER) | payer MEDICAID, SELFPAY ==
[2024-04-07 20:52] VITALS: BP 125/83; PULSE 121; RESP 16; TEMP 36.9; O2SAT 96
[2024-04-07 20:57] VITALS: BP 125/83; PULSE 121; RESP 16; O2SAT 96
== END 2024-04-07 22:30 | disposition left against medical advice (07) ==
PROVIDERS: Emergency Provider Physician Assistant
DX: R10.9 Unspecified abdominal pain (principal); Z53.21 Procedure and treatment not carried out due to patient leaving prior to being seen by health care provider
CPT/HCPCS: 81025; 99282

== ENCOUNTER 2024-04-09 17:18 | Emergency (ER) | payer MEDICAID, SELFPAY ==
[2024-04-09 17:23] VITALS: BP 98/66; PULSE 89; RESP 16; TEMP 36.5; O2SAT 98
--- NOTE | 2024-04-09 17:47 | ED.GENADUL_ITS ---
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 prednisone 20 mg tablet 20 mg PO DAILY Patient Comments: take 2 tablets by mouth once daily cefdinir 250 mg/5 mL suspension for reconstitution 250 mg PO BID Patient Comments: give 7 MILLILITERS by mouth twice a day for 10 days DISCARD EXCESS MEDICATION Discharge Instructions Additional Instructions: Please call your primary care provider first thing Friday morning to schedule follow-up appointment for reassessment. Evaluation by a specialist or further outpatient workup may be indicated Please stay well-hydrated, drinking plenty of fluids throughout the day. Your potassium was slightly low today, please eat plenty of potassium rich foods such as potatoes, oranges, and bananas. Drink electrolyte rich drinks such as Gatorlyte. You may use Tylenol 6 and 50 mg every 6 hours or ibuprofen 800 mg every 8 hours as needed for discomfort. A heating pad may also provide some relief. Return to emergency care if you develop new severe abdominal pain, uncontrollable vomiting, blood in your stool or vomit, fevers associated with belly pain, or if you are very worried and need to be rechecked again immediately. Stand Alone Forms: Work Release Referrals: Reinier Kenney [ NON-[facility] STAFF PHYSICIAN] - [facility] General Date/Time Provider Initiated Documentation: 04/09/24 17:34 . HPI Narrative: Marilu is a 19 year old female who presents to the emergency department today for evaluation of lower abdominal cramping accompanied by diarrhea and nausea. She had 4 episodes of nonbloody diarrhea yesterday. Decreased p.o. intake due to nausea. Denies associated fever/chills, headache, congestion, sore throat, cough, vomiting, recent change in urine output or dysuria, unusual vaginal discharge. Denies current sexual activity; receives depo-provera shot. She does have a history of prior abdominal issues, but that she has had it worked up and they are not sure what causes it. No history of abdominal surgery. Has been using Tylenol, ibuprofen, and Pepto-Bismol without relief of symptoms. Past medical history is significant for [] Physical exam reassuring. Pt is alert and oriented, no acute distress. Moist mucous membranes. Abdomen soft, nondistended, nontender to palpation; no rigidity or guarding. Normal bowel sounds. Normal heart sounds. Needed for breathing, lung sounds clear bilaterally. D/dx includes but is not limited to: Viral gastroenteritis, IBS, IBD, endometriosis, ovarian cyst, early . Low suspicion for UTI in patient without urinary symptoms. Reassuring abdominal exam, no red flags concerning for acute surgical abdomen requiring emergent diagnostic imaging at this time. I independently interpreted the following tests: CBC reassuring, mild leukocytosis noted with white cell count 4.0. CMP unremarkable aside from mild hypokalemia, potassium 3.4. Magnesium reassuring. COVID and flu negative. Patient declined to provide urine sample, says she would like to go home at this time. While in the emergency department, Marilu received Zofran and Toradol for discomfort and nausea. She was able to take ольга tracy and crackers. Overall abdominal workup today reassuring. As patient does have some leukopenia, likely viral etiology. Reviewed discharge instructions with patient, including symptomatic management, importance of follow-up with PCP for further evaluation/management of abdominal symptoms, and red flags indicating need for return to emergency care. A work note was provided Related Data Home Medications ?Medication ?Instructions ?Recorded ?Confirmed medroxyprogesterone 150 mg/mL 150 mg IM Q12W #1 mL 02/10/24 04/09/24 intramuscular syringe (Depo-Provera) cefdinir 250 mg/5 mL oral 250 mg PO BID 04/07/24 04/09/24 suspension prednisone 20 mg tablet 20 mg PO DAILY 04/07/24 04/09/24 Previous Rx's ?Medication ?Instructions ?Recorded medroxyprogesterone 150 mg/mL 150 mg IM Q12W #1 mL 02/10/24 intramuscular syringe (Depo-Provera) Allergies Allergy/AdvReac Type Severity Reaction Status Date / Time fluconazole (From Diflucan) Allergy Mild nausea Verified 04/09/24 17:27 vomiting Penicillins Allergy hives Verified 04/09/24 17:27 General Stated Complaint: Abd Prob WINNIE: 3 Review of Systems Narrative: See HPI Exam Const General: cooperative, comfortable and well developed Nutritional Appearance: average body habitus Orientation: alert and oriented x3 HENMT Head: normal to inspection Ears: hearing grossly normal bilaterally General nose exam: external nose normal Face and sinus: normal facial exam Mouth: oral mucosae normal, lip normal, tongue normal, oropharynx normal and moist mucous membranes Resp Effort & Inspection: normal respiratory effort and able to speak in complete sentences Auscultation: clear to auscultation bilaterally Cardio Rate: regular rate Rhythm: regular rhythm GI Inspection: normal to inspection and non-distended Palpation: soft, not firm, no guarding, not rigid and nontender Auscultation: normal bowel sounds Skin General skin exam: no rashes or lesions noted Course Vital Signs Vital signs: Vital Signs Temperature 36.5 C 04/09/24 17:23 Pulse 89 04/09/24 17:23 Respiratory Rate 16 04/09/24 17:23 Blood Pressure 98/66 L 04/09/24 17:23 Pulse Oximetry 98 04/09/24 17:23 Temperature 36.5 C 04/09/24 17:23 Pulse 89 04/09/24 17:23 Respiratory Rate 16 04/09/24 17:23 Blood Pressure 98/66 L 04/09/24 17:23 Pulse Oximetry 98 04/09/24 17:23 Oxygen Delivery Method Room Air 04/09/24 17:23 Oxygen Flow Rate 0 04/09/24 17:23 Pain Level 7 04/09/24 17:23 Medical Decision Making Quality:SDOH Health Related Social Needs: No Data to Display PFSH All Active Problems (Updated 04/09/24 @ 18:51 by Chen Winkler) Influenza A (Acute) Nausea (Acute) Vaginal discharge (Acute) Bladder pain (Acute) Depo-Provera contraceptive status (Acute) Vaginal burning (Acute) Abnormal uterine bleeding (AUB) (Acute) 04/2023. Brown vaginal discharge while using DepoProvera. Chronic pelvic pain in female (Acute) Abdominal pain (Acute) Dyspareunia due to medical condition in female (Acute) RLQ abdominal pain (Acute) GERD (gastroesophageal reflux disease) (Chronic) refractory to PPI therapy Medical History Personal history of noncompliance with medical treatment Irritable bowel syndrome with constipation denies issues as of 02/12/23 Pelvic pain Bacterial vaginosis Yeast infection Frequent UTI Surgical History History of dental surgery No significant past surgical history Social History Smoking/Tobacco Use Status: Current every day Tobacco Type: e-cigarettes Smoking risk assessment performed?: Yes Alcohol Intake: never Drug use: Never Substance use type: does not use Household members: significant other and other Details: lives with [facility]. 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 Sexually active: Yes Do you feel safe at home: Yes Do you feel safe in your relationship?: Yes
[2024-04-09] MEDS: Ketorolac 15 MG/ML VIAL IVP (18:16)
[2024-04-09] MEDS: Ondansetron 4 MG/2 ML VIAL IVP (18:16)
[2024-04-09] MEDS: Normal Saline Flush 10 ML SYR IVP (18:17)
[2024-04-09 18:22] LABS: Abs Immature Grans 0.02 10^3/uL (0.0-0.06); Absolute Basophil Count 0.01 10^3/uL (0.0-0.2); Absolute Lymphocyte Count 0.62 10^3/uL (1.2-3.4); Absolute Monocyte Count 0.21 10^3/uL (0.1-0.8); Absolute Neutrophil Count 3.14 10^3/uL (1.2-6.7); Basophils % 0.3 %; HCT 42.9 % (36.0-46.0); HGB 14.4 g/dL (11.2-15.7); Immature Grans % 0.5 %; Lymphocytes % 15.5 %; MCH 28.9 pg (27.0-33.0); MCHC 33.6 % (32.0-36.0); MCV 86 fL (80-95); MPV 9.7 fL (8.0-11.0); Monocytes % 5.3 %; Neutrophils % 78.4 %; Platelet Count 246 10^3/uL (130-400); RBC 4.98 10^6/uL (3.93-5.22); RDW 11.9 % (11.7-14.6); RDW-SD 37.2 fL
[2024-04-09 18:36] LABS: ALT 30 U/L (14-59); AST 25 U/L (15-37); Albumin 3.9 g/dL (3.4-5.0); Alkaline Phosphatase 64 U/L (46-116); Anion Gap 6.8 mmol/L (3-11); BUN 8 mg/dL (7-18); Bilirubin, Total 0.24 mg/dL (0.2-1.0); CO2 29.2 mmol/L (21.0-32.0); CREATININE 0.6 mg/dL (0.55-1.02); Calcium 9.1 mg/dL (8.5-10.1); Chloride 105 mmol/L (98-107); Glucose 89 mg/dL (74-106); Magnesium 2.4 mg/dL (1.8-2.4); Potassium 3.4 mmol/L (3.5-5.1); Sodium 141 mmol/L (136-145); Total Protein 7.2 g/dL (6.4-8.2)
[2024-04-09 19:04] VITALS: BP 95/64; PULSE 78; RESP 16; O2SAT 96
== END 2024-04-09 19:04 | disposition home or self-care (01) ==
PROVIDERS: Emergency Provider Nurse Practitioner Family
DX: R10.31 Right lower quadrant pain (principal); R10.32 Left lower quadrant pain; R19.7 Diarrhea, unspecified; R11.0 Nausea
CPT/HCPCS: 36415; 80053; 87426; 96374; 96375; 99284; 83735; 85025; J1885; J2405

== ENCOUNTER 2024-04-11 14:42 | Emergency (ER) | payer MEDICAID, SELFPAY ==
[2024-04-11 14:47] VITALS: BP 124/78; PULSE 104; RESP 16; TEMP 36.4; O2SAT 99
[2024-04-11 14:50] VITALS: BP 124/78; PULSE 104; RESP 16; TEMP 36.4; O2SAT 99
--- NOTE | 2024-04-11 15:29 | NUR.NOTE ---
Nursing Note: Pt gave urine sample and was told room was being cleaned for her. pt verbalized understanding- went out 5 minutes later and patient had LWBS
--- NOTE | 2024-04-11 15:35 | NUR.NOTE ---
Access chart to assist charge nurse in getting phone number to contact patient. Nursing Note:
== END 2024-04-11 15:30 | disposition left against medical advice (07) ==
PROVIDERS: Emergency Provider Emergency Medicine
DX: Z53.21 Procedure and treatment not carried out due to patient leaving prior to being seen by health care provider (principal)

== ENCOUNTER 2024-04-14 18:23 | Emergency (ER) | payer MEDICAID, SELFPAY ==
[2024-04-14 18:24] VITALS: BP 133/80; PULSE 108; RESP 16; TEMP 36.6; O2SAT 98
--- NOTE | 2024-04-14 18:47 | ED.GENADUL_ITS ---
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 Discharge Data Discharge Date/Time-TO BE ENTERED AT DEPARTURE: 04/14/24 21:27 HPI General Date/Time Provider Initiated Documentation: 04/14/24 18:28 . HPI Narrative: 19 year-old female presents to ED today by POV/ambulating with her boyfriend with a chief complaint of anxiety, states no SI/HI, states her therapist recommended she come here for evaluation and admitted for in-patient MH treatment, with onset chornically, also reports chronic mild abdominal pain with prior negative workups. Quality described as high anxiety, no radiation to suicidal thoughts/behaviors, homicidal ideations, feeling unsafe, recent illness, fever, nausea/vomiting, diarrhea. Severity is described as moderate. Palliating factors include nothing specific attempted. Provoking factors include nothing specific. Patient not anticoagulated. Related Data Home Medications ?Medication ?Instructions ?Recorded ?Confirmed medroxyprogesterone 150 mg/mL 150 mg IM Q12W #1 mL 02/10/24 04/16/24 intramuscular syringe (Depo-Provera) Previous Rx's ?Medication ?Instructions ?Recorded medroxyprogesterone 150 mg/mL 150 mg IM Q12W #1 mL 02/10/24 intramuscular syringe (Depo-Provera) Allergies Allergy/AdvReac Type Severity Reaction Status Date / Time fluconazole (From Diflucan) Allergy Mild nausea Verified 04/16/24 13:56 vomiting Penicillins Allergy hives Verified 04/16/24 13:56 General Stated Complaint: PsychEval WINNIE: 2 Review of Systems All systems reviewed & are unremarkable except as noted in HPI and below Exam Narrative Exam Narrative: GENERAL APPEARANCE: Well-nourished, non-toxic, awake and alert, atraumatic, no acute distress. SKIN: Warm, pink, dry, intact, without rashes/lesions/ulcerations. HEAD: Normocephalic, atraumatic, normal hair distribution for gender/age. EYES: Normal conjunctiva, no exudates on lids/lashes. ENT: Nares patent, no circumoral cyanosis, no facial swelling NECK: Supple, trachea midline, painless cervical ROM. LUNGS/CHEST: Lungs CTA bilaterally, non-labored respirations, normal A/P diameter, symmetrical expansion, no chest wall deformity HEART (CV/PV): Regular rate and rhythm without murmur, no peripheral edema, no JVD. ABDOMEN: Soft, non-distended, no guarding, mild epigastric tenderness. MSK: Normal ROM, no swelling/deformity to bilateral UEs or LEs, moving all extremities without weakness, no cyanosis, spine midline without tenderness, normal curvature. NEURO: Mental Status AAOx4 - alert to person, place, time, events No facial droop, no forehead involvement. Motor: No focal weakness - strength 5/5 in bilateral UEs and LEs, proximal and distal, symmetric. Sensory: sensation intact to light touch globally. Gait normal: patient ambulated without ataxia into ED room. PSYCH: euthymic, cooperative, pleasant, appropriate speech Course Vital Signs Vital signs: Vital Signs Temperature 36.6 C 04/14/24 18:24 Pulse 108 H 04/14/24 18:24 Respiratory Rate 16 04/14/24 18:24 Blood Pressure 133/80 04/14/24 18:24 Pulse Oximetry 98 04/14/24 18:24 Temperature 36.6 C 04/14/24 18:24 Pulse 108 H 04/14/24 18:24 Respiratory Rate 16 04/14/24 18:24 Blood Pressure 133/80 04/14/24 18:24 Pulse Oximetry 98 04/14/24 18:24 Pain Level 0 04/14/24 18:24 Medical Decision Making This dictation utilizes [id number] dictation software and may contain unedited grammatical errors. 19 year-old female presents to ED today by POV/ambulating with her boyfriend with a chief complaint of anxiety, states no SI/HI, states her therapist recommended she come here for evaluation and admitted for in-patient MH treatment, with onset chornically, also reports chronic mild abdominal pain with prior negative workups. Quality described as high anxiety, no radiation to suicidal thoughts/behaviors, homicidal ideations, feeling unsafe, recent illness, fever, nausea/vomiting, diarrhea. Severity is described as moderate. Palliating factors include nothing specific attempted. Provoking factors include nothing specific. Patients' medical history: Chronic abdominal pain, anxiety, GERD. Family and social history: Noncontributory. Pertinent exam findings / vital signs include mentating normally, no acute distress, nontangential speech, benign abdomen, benign cardiopulmonary status, neuro intact. Differential / pathologies of concern include anxiety, chronic abdominal pain. Diagnostic studies of: -None, medically cleared for [facility] eval. Interventions of: -[facility] eval. ED Course/Assessment/Plan: 19-year-old female with chronic abdominal pain and history of anxiety presents for inpatient admission voluntary status for anxiety, denies SI or HI, poor uti lization of the ED, I question whether her therapist did recommend that she be inpatient anywhere, patient eloped, reportedly was seen by [facility] but they did not follow-up with me. Findings not consistent with suicidal ideation, homicidal ideation, surgical abdomen. Disposition of anxiety. Patient verbalized understanding of the plan and return to ED criteria and engaged in shared decision making. Medical Records Medical records reviewed: Yes I reviewed the patient's medical records. Quality:[facility] Health Related Social Needs: No Data to Display [facility] All Active Problems (Updated 04/16/24 @ 15:28 by Dima Manzanares DO) Abdominal cramping (Acute) Anxiety (Chronic) Influenza A (Acute) Nausea (Acute) Vaginal discharge (Acute) Bladder pain (Acute) Depo-Provera contraceptive status (Acute) Vaginal burning (Acute) Abnormal uterine bleeding (AUB) (Acute) 04/2023. Brown vaginal discharge while using DepoProvera. Chronic pelvic pain in female (Acute) Abdominal pain (Acute) Dyspareunia due to medical condition in female (Acute) RLQ abdominal pain (Acute) GERD (gastroesophageal reflux disease) (Chronic) refractory to PPI therapy Medical History Personal history of noncompliance with medical treatment Irritable bowel syndrome with constipation denies issues as of 02/12/23 Pelvic pain Bacterial vaginosis Yeast infection Frequent UTI Surgical History History of dental surgery No significant past surgical history Social History Smoking/Tobacco Use Status: Current every day Tobacco Type: e-cigarettes Smoking risk assessment performed?: Yes Alcohol Intake: never Drug use: Never Substance use type: does not use Household members: significant other and other Details: lives with [facility]. 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 Sexually active: Yes Do you feel safe at home: Yes Do you feel safe in your relationship?: Yes
== END 2024-04-14 21:27 | disposition left against medical advice (07) ==
PROVIDERS: Emergency Provider Physician Assistant
DX: F41.9 Anxiety disorder, unspecified (principal); F17.290 Nicotine dependence, other tobacco product, uncomplicated
CPT/HCPCS: 99283

== ENCOUNTER 2024-04-16 13:52 | Emergency (ER) | payer MEDICAID, SELFPAY ==
[2024-04-16 13:54] VITALS: BP 112/71; PULSE 104; TEMP 36.5; O2SAT 98
[2024-04-16 13:56] VITALS: BP 112/71; PULSE 104; TEMP 36.5; O2SAT 98
[2024-04-16 14:21] LABS: Bilirubin Negative (Negative); Blood Negative (Negative); Clarity Clear (Clear); Glucose Negative (Negative); Ketones Negative (Negative); Leukocyte Esterase Negative (Negative); Nitrite Negative (Negative); Urobilinogen 0.2 mg/dL (Up to 0.2)
--- NOTE | 2024-04-16 14:27 | ED.GENADUL_ITS ---
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 Discharge Instructions Instructions: Abdominal pain Additional Instructions: At this time your workup is returned reassuring. Thankfully there is no evidence of a life-threatening intra-abdominal etiology based on exam and labs. If you notice any worsening of your symptoms, or any new symptoms such as vomiting, diarrhea, fever, chills, shortness of breath, chest pain, numbness, weakness, or fainting , please return immediately to the emergency department for reevaluation. Please follow up with your primary care provider as soon as possible for reassessment and reevaluation. As always, it was a pleasure participating in your medical care today. HPI General Date/Time Provider Initiated Documentation: 04/16/24 14:13 . HPI Narrative: This is a 19-year-old female with a past medical history of chronic pelvic and abdominal pain, which has had multiple work-ups, multiple evaluations with imaging, and various follow-ups with surgery, GI, and OB, with no clear definitive etiology at this time. She has a family past medical history of endometriosis, but will be feels that this is unlikely given her current situation. Surgery/GI are still pending colonoscopy and endoscopy for further diagnosis and assessment. She has had multiple visits to the ED. Emergency department and [facility] emergency department without any solution or cause to her symptoms. She presents today for evaluation of crampy abdominal pain. Patient states that she has had mild cramping pain for the last week. She denies vomiting or diarrhea. She is currently on Depo shot, and does not get her period regularly. She denies fever or chills. No blood in her stools. No dietary or medication changes. No other complaints at this time. Related Data Home Medications ?Medication ?Instructions ?Recorded ?Confirmed medroxyprogesterone 150 mg/mL 150 mg IM Q12W #1 mL 02/10/24 04/16/24 intramuscular syringe (Depo-Provera) Previous Rx's ?Medication ?Instructions ?Recorded medroxyprogesterone 150 mg/mL 150 mg IM Q12W #1 mL 02/10/24 intramuscular syringe (Depo-Provera) Allergies Allergy/AdvReac Type Severity Reaction Status Date / Time fluconazole (From Diflucan) Allergy Mild nausea Verified 04/16/24 13:56 vomiting Penicillins Allergy hives Verified 04/16/24 13:56 General Stated Complaint: Abd Prob WINNIE: 3 Exam Narrative Exam Narrative: 1.Const: Well-nourished, Well-developed, appearing stated age 2.Eyes: PERRL, no conjunctival injection, and symmetrical lids. 3.ENT: Atraumatic external nose and ears. Dry MM. Neck: Symmetric, trachea midline, No thyromegaly. 4.CVS: +S1/S2, Peripheral pulses 2+ and equal in all extremities. Brisk capillary refill in all extremities. 5.RESP: Unlabored respiratory effort. Clear to auscultation bilaterally. No wheezes rales or rhonchi 6.GI: Soft, Nontender/Nondistended, No hepatosplenomegaly. No guarding or rebound. No pain at McBurney's point, negative Natarajan's time. 7.MSK: Normocephalic/Atraumatic, Extremities w/o deformity or ttp No cyanosis or clubbing, Normal movement of all extremities 8.Skin: Warm, Dry. No rashes or lesions. 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 Sensation grossly intact, no focal neurologic deficits. 10.Psych: (AAO) x3. Appropriate mood and affect Course Vital Signs Vital signs: Vital Signs Temperature 36.5 C 04/16/24 13:54 Pulse 104 H 04/16/24 13:54 Blood Pressure 112/71 04/16/24 13:54 Pulse Oximetry 98 04/16/24 13:54 Temperature 36.5 C 04/16/24 13:56 Temperature Source Temporal Artery Scan 04/16/24 13:56 Pulse 104 H 04/16/24 13:56 Blood Pressure 112/71 04/16/24 13:56 Pulse Oximetry 98 04/16/24 13:56 Lab/Test Results Lab/Test Results: Laboratory Tests Range/Units 04/16/24 14:00 Urine Color (Yellow) Yellow Urine Clarity (Clear) Clear Urine pH (5-8) 8.0 Ur Specific [place] (1.005-1.025) 1.020 Urine Protein (Neg-Trace) mg/dL Negative Urine Ketones (Negative) mg/dL Negative Urine Blood (Negative) Negative Urine Nitrite (Negative) Negative Urine Bilirubin (Negative) Negative Urine Urobilinogen (Up to 0.2) mg/dL 0.2 Ur Leukocyte Esterase (Negative) Negative Urine Glucose (Negative) mg/dL Negative POC- Test(urine) Negative Medical Decision Making This is a 19-year-old female with a past medical history of chronic pelvic and abdominal pain, which has had multiple work-ups, multiple evaluations with imaging, and various follow-ups with surgery, GI, and OB, with no clear definitive etiology at this time. She has a family past medical history of endometriosis, but will be feels that this is unlikely given her current situation. Surgery/GI are still pending colonoscopy and endoscopy for further diagnosis and assessment. She has had multiple visits to the ED. Emergency department and [facility] emergency department without any solution or cause to her symptoms. She presents today for evaluation of crampy abdominal pain. Patient states that she has had mild cramping pain for the last week. She denies vomiting or diarrhea. She is currently on Depo shot, and does not get her period regularly. She denies fever or chills. No blood in her stools. No dietary or medication changes. No other complaints at this time. Exam demonstrates a well-appearing female, no signs of an acute surgical abdomen. No guarding or rebound. No pain whatsoever on palpation of the abdomen. Symptoms appear inconsistent with an acute surgical etiology. No indication for emergent CT imaging. We did establish an IV, got blood work, white count is at baseline, electrolytes normal, she was rehydrated with a liter of IV fluids, she was given Bentyl and a GI cocktail. She feels much better after this. Patient asked for IV to immediately be removed and requested immediate discharge. Repeat exam shows no signs of an acute surgical abdomen or other life-threatening etiology. Vital signs stable. Urinalysis normal. Lipase normal. No transaminitis or elevated bilirubin. Patient stable for discharge. Discussed red flags for which to return. I have extensively reviewed the treatment plan and discharge instructions with the patient. I have addressed all patient concerns at this time. The patient was made aware of what symptoms to monitor for that would warrant a return to the emergency department. Discussed the plan with the patient, they demonstrate verbal understanding and agreement with our assessment and plan at this time. The documentation in this chart was dictated using [employer] dictation software. Please excuse any dictation errors. Quality:SDOH Health Related Social Needs: No Data to Display PFSH All Active Problems (Updated 04/16/24 @ 15:28 by Dima Manzanares DO) Abdominal cramping (Acute) Anxiety (Chronic) Influenza A (Acute) Nausea (Acute) Vaginal discharge (Acute) Bladder pain (Acute) Depo-Provera contraceptive status (Acute) Vaginal burning (Acute) Abnormal uterine bleeding (AUB) (Acute) 04/2023. Brown vaginal discharge while using DepoProvera. Chronic pelvic pain in female (Acute) Abdominal pain (Acute) Dyspareunia due to medical condition in female (Acute) RLQ abdominal pain (Acute) GERD (gastroesophageal reflux disease) (Chronic) refractory to PPI therapy Medical History Personal history of noncompliance with medical treatment Irritable bowel syndrome with constipation denies issues as of 02/12/23 Pelvic pain Bacterial vaginosis Yeast infection Frequent UTI Surgical History History of dental surgery No significant past surgical history Social History Smoking/Tobacco Use Status: Current every day Tobacco Type: e-cigarettes Smoking risk assessment performed?: Yes Alcohol Intake: never Drug use: Never Substance use type: does not use Household members: significant other and other Details: lives with Cesario Saleem. 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 Sexually active: Yes Do you feel safe at home: Yes Do you feel safe in your relationship?: Yes
[2024-04-16] MEDS: Dicyclomine 10 MG CAP PO (14:38)
[2024-04-16] MEDS: Ondansetron 4 MG/2 ML VIAL IVP (14:38)
[2024-04-16] MEDS: MYLANTA 30 ML, LIDOCAINE 2% VISCOUS UD 15 ML PO (14:38)
[2024-04-16] MEDS: Lactated Ringers 1,000 ML 1000 ML IV (14:44)
[2024-04-16 14:46] LABS: Abs Immature Grans 0.01 10^3/uL (0.0-0.06); Absolute Basophil Count 0.03 10^3/uL (0.0-0.2); Absolute Eosinophil Count 0.09 10^3/uL (0.0-0.7); Absolute Lymphocyte Count 1.32 10^3/uL (1.2-3.4); Absolute Neutrophil Count 1.99 10^3/uL (1.2-6.7); Basophils % 0.8 %; Eosinophils % 2.3 %; HCT 37.4 % (36.0-46.0); HGB 12.8 g/dL (11.2-15.7); Immature Grans % 0.3 %; Lymphocytes % 34.4 %; MCHC 34.2 % (32.0-36.0); MCV 85 fL (80-95); MPV 9.9 fL (8.0-11.0); Monocytes % 10.4 %; Neutrophils % 51.8 %; Platelet Count 312 10^3/uL (130-400); RBC 4.41 10^6/uL (3.93-5.22); RDW 11.4 % (11.7-14.6); RDW-SD 35.3 fL; WBC 3.84 10^3/uL (4.4-10.8)
[2024-04-16 15:00] LABS: ALT 25 U/L (14-59); AST 11 U/L (15-37); Albumin 3.8 g/dL (3.4-5.0); Alkaline Phosphatase 81 U/L (46-116); Anion Gap 7.7 mmol/L (3-11); BUN 11 mg/dL (7-18); Bilirubin, Total 0.3 mg/dL (0.2-1.0); CO2 27.3 mmol/L (21.0-32.0); CREATININE 0.5 mg/dL (0.55-1.02); Calcium 8.7 mg/dL (8.5-10.1); Chloride 107 mmol/L (98-107); Estimated GFR 137.62 (mL/min/1.73m2); Glucose 121 mg/dL (74-106); Lipase 53 U/L (<78); Potassium 3.7 mmol/L (3.5-5.1); Sodium 142 mmol/L (136-145); Total Protein 6.8 g/dL (6.4-8.2)
== END 2024-04-16 15:35 | disposition home or self-care (01) ==
PROVIDERS: Emergency Provider Student in an Organized Health Care Education/Training Program
DX: K21.9 Gastro-esophageal reflux disease without esophagitis (principal); F17.210 Nicotine dependence, cigarettes, uncomplicated
CPT/HCPCS: 80053; 81025; 83690; 96374; 99284; 81003; 85025; 99283; J2405

== ENCOUNTER 2024-04-17 19:29 | Emergency (ER) | payer MEDICAID, SELFPAY ==
[2024-04-17 19:33] VITALS: BP 107/71; PULSE 96; RESP 16; TEMP 36.7; O2SAT 99
[2024-04-17 20:00] LABS: Bacteria Negative HPF (Negative); Bilirubin Small (Negative); Blood Negative (Negative); C & S Indicated? No; Casts Negative LPF (Negative); Clarity Clear (Clear); Crystals Negative HPF (Negative); Epithelial Cells Negative HPF (Negative); Glucose Negative (Negative); Ketones Negative (Negative); Leukocyte Esterase Negative (Negative); Mucus Negative (Negative); Nitrite Negative (Negative); Other Cells Negative (Negative); RBC Negative HPF (0-2); Specific Gravity >= 1.030 (1.005-1.025); Urobilinogen 0.2 mg/dL (Up to 0.2); WBC Negative HPF (0-5)
[2024-04-17] MEDS: Normal Saline 1,000 ML 1000 ML IV (20:32)
[2024-04-17 20:35] LABS: Abs Immature Grans 0.03 10^3/uL (0.0-0.06); Absolute Basophil Count 0.04 10^3/uL (0.0-0.2); Absolute Eosinophil Count 0.14 10^3/uL (0.0-0.7); Absolute Lymphocyte Count 1.54 10^3/uL (1.2-3.4); Absolute Neutrophil Count 3.35 10^3/uL (1.2-6.7); Basophils % 0.7 %; Eosinophils % 2.5 %; HCT 36.7 % (36.0-46.0); HGB 12.6 g/dL (11.2-15.7); Immature Grans % 0.5 %; Lymphocytes % 27.5 %; MCH 29.2 pg (27.0-33.0); MCHC 34.3 % (32.0-36.0); MCV 85 fL (80-95); Monocytes % 8.9 %; Neutrophils % 59.9 %; Platelet Count 329 10^3/uL (130-400); RBC 4.31 10^6/uL (3.93-5.22); RDW 11.6 % (11.7-14.6); RDW-SD 35.6 fL
[2024-04-17] MEDS: FAMOTIDINE 20 MG in Normal Saline 100 ML 400 MG IVPB (20:36)
[2024-04-17] MEDS: Ondansetron 4 MG/2 ML VIAL IVP (20:37)
[2024-04-17 20:44] LABS: Lipase 65 U/L (<78)
--- NOTE | 2024-04-17 20:45 | RT.EKG_ITS ---
APPROVED REPORT Exam: Resting ECG Reason for Exam: chest pain Patient Location: E HR:94 bpm ECG Measurements Heart Rate 94 AXIS ID 148 P 55 QRSd 71 QRS 78 QT 358 T 66 QTc 449 Conclusion Sinus rhythm 94 normal axis no stemi
[2024-04-17 20:49] LABS: ALT 26 U/L (14-59); AST 13 U/L (15-37); Albumin 3.9 g/dL (3.4-5.0); Alkaline Phosphatase 92 U/L (46-116); Anion Gap 8.1 mmol/L (3-11); BUN 7 mg/dL (7-18); Bilirubin, Total 0.2 mg/dL (0.2-1.0); CO2 28.9 mmol/L (21.0-32.0); CREATININE 0.6 mg/dL (0.55-1.02); Calcium 8.7 mg/dL (8.5-10.1); Chloride 106 mmol/L (98-107); Glucose 111 mg/dL (74-106); Potassium 3.4 mmol/L (3.5-5.1); Sodium 143 mmol/L (136-145); Total Protein 6.9 g/dL (6.4-8.2)
[2024-04-17 20:50] VITALS: BP 121/52; PULSE 98; RESP 16; TEMP 36.8; O2SAT 100
[2024-04-17] MEDS: Magic Mouthwash 119 ML BTL 10 ML PO (21:03)
[2024-04-17 21:39] VITALS: BP 106/56; PULSE 89; RESP 16; O2SAT 100
--- NOTE | 2024-04-17 22:16 | W.ED.GENAD ---
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 Discharge Instructions Additional Instructions: Lab work looks normal this evening. Your symptoms improved with medication given. And I prescribed you medication to continue at home. Please take this medicine and follow-up with your primary care provider for reevaluation of ongoing symptoms. HPI General Date/Time Provider Initiated Documentation: 04/17/24 19:49. Limitations to Documentation: no limitations. Information obtained by: patient. HPI Narrative: 19-year-old female with past medical history of GERD presents for evaluation of generalized abdominal pain. She reports it has been ongoing for the last 2 weeks. She states it is all over her abdomen, but slightly worse in the upper part. She states that it is worsened with food. It is burning in nature. She has tried Motrin and Tylenol and Tums without significant relief of her symptoms. Related Data Home Medications ?Medication ?Instructions ?Recorded ?Confirmed medroxyprogesterone 150 mg/mL 150 mg IM Q12W #1 mL 02/10/24 04/17/24 intramuscular syringe (Depo-Provera) ondansetron 4 mg disintegrating 4 mg PO Q6H PRN nausea and 04/17/24 tablet vomiting #30 tabs pantoprazole 40 mg tablet,delayed 40 mg PO DAILY #30 tabs 04/17/24 release Previous Rx's ?Medication ?Instructions ?Recorded medroxyprogesterone 150 mg/mL 150 mg IM Q12W #1 mL 02/10/24 intramuscular syringe (Depo-Provera) ondansetron 4 mg disintegrating 4 mg PO Q6H PRN nausea and 04/17/24 tablet vomiting #30 tabs pantoprazole 40 mg tablet,delayed 40 mg PO DAILY #30 tabs 04/17/24 release Allergies Allergy/AdvReac Type Severity Reaction Status Date / Time fluconazole (From Diflucan) Allergy Mild nausea Verified 04/17/24 19:36 vomiting Penicillins Allergy hives Verified 04/17/24 19:36 General Stated Complaint: Abd Prob WINNIE: 3 Exam Narrative Exam Narrative: Review of Systems: All systems reviewed & are unremarkable except as noted in HPI and below Well-developed, no acute distress NCAT PERRL, normal conjunctiva RRR Unlabored respiratory effort Nondistended abdomen , soft nontender Course Vital Signs Vital signs: Vital Signs Temperature 36.7 C 04/17/24 19:33 Pulse 96 H 04/17/24 19:33 Respiratory Rate 16 04/17/24 19:33 Blood Pressure 107/71 04/17/24 19:33 Pulse Oximetry 99 04/17/24 19:33 Temperature 36.8 C 04/17/24 20:50 Temperature Source Oral 04/17/24 20:50 Pulse 89 04/17/24 21:39 Pulse Rhythm Regular 04/17/24 20:50 Pulse Strength Normal 04/17/24 20:50 Respiratory Rate 16 04/17/24 21:39 Blood Pressure 106/56 L 04/17/24 21:39 Blood Pressure Mean 75 04/17/24 20:50 Pulse Oximetry 100 04/17/24 21:39 Pain Level 3 04/17/24 20:50 Lab/Test Results Lab/Test Results: Laboratory Tests Range/Units 04/17/24 04/17/24 19:51 20:28 WBC (4.4-10.8) 10^3/uL 5.60 RBC (3.93-5.22) 10^6/uL 4.31 Hgb (11.2-15.7) g/dL 12.6 Hct (36.0-46.0) % 36.7 MCV (80-95) fL 85 MCH (27.0-33.0) pg 29.2 MCHC (32.0-36.0) % 34.3 RDW (11.7-14.6) % 11.6 L Plt Count (130-400) 10^3/uL 329 MPV (8.0-11.0) fL 10.0 Immature Gran % % 0.5 Neutrophils % % 59.9 Lymphocytes % % 27.5 Monocytes % % 8.9 Eosinophils % % 2.5 Basophils % % 0.7 Nucleated RBC % (0.0-0.3) % 0.0 Absolute Neutrophils (1.2-6.7) 10^3/uL 3.35 Absolute Lymphocytes (1.2-3.4) 10^3/uL 1.54 Absolute Monocytes (0.1-0.8) 10^3/uL 0.50 Absolute Eosinophils (0.0-0.7) 10^3/uL 0.14 Absolute Basophils (0.0-0.2) 10^3/uL 0.04 Sodium (136-145) mmol/L 143 Potassium (3.5-5.1) mmol/L 3.4 L Chloride (98-107) mmol/L 106 Carbon Dioxide (21.0-32.0) mmol/L 28.9 Anion Gap (3-11) mmol/L 8.1 BUN (7-18) mg/dL 7 Creatinine (0.55-1.02) mg/dL 0.6 Est GFR (CKD-EPI 2020) (mL/min/1.73m2) 131.70 Glucose (74-106) mg/dL 111 H Calcium (8.5-10.1) mg/dL 8.7 Magnesium (1.8-2.4) mg/dL 2.0 Total Bilirubin (0.2-1.0) mg/dL 0.2 AST (15-37) U/L 13 L ALT (14-59) U/L 26 Alkaline Phosphatase (46-116) U/L 92 Total Protein (6.4-8.2) g/dL 6.9 Albumin (3.4-5.0) g/dL 3.9 Lipase (<78) U/L 65 Urine Color (Yellow) Yellow Urine Clarity (Clear) Clear Urine pH (5-8) 6.0 Ur Specific [place] (1.005-1.025) >= 1.030 H Urine Protein (Neg-Trace) mg/dL 30 H Urine Ketones (Negative) mg/dL Negative Urine Blood (Negative) Negative Urine Nitrite (Negative) Negative Urine Bilirubin (Negative) Small H Urine Urobilinogen (Up to 0.2) mg/dL 0.2 Ur Leukocyte Esterase (Negative) Negative Urine RBC (0-2) HPF Negative Urine WBC (0-5) HPF Negative Ur Epithelial Cells (Negative) HPF Negative Urine Crystals (Negative) HPF Negative Urine Bacteria (Negative) HPF Negative Urine Casts (Negative) LPF Negative Urine Mucus (Negative) Negative Urine Other (Negative) Negative Ur Culture Indicated? No Urine Glucose (Negative) mg/dL Negative POC- Test(urine) Negative Medical Decision Making Emergent evaluation of generalized abdominal pain. Abdominal exam is benign and vital signs are stable without any evidence of hemodynamic instability. I have a low suspicion for an acute intra-abdominal process given the duration of her symptoms and the lack of acute findings on physical examination. I noted that she does have a history of reflux, but is not on a daily controller medication. Lab work was obtained. There are no clinically significant abnormalities of note. At this time based on her benign examination, I do not feel that CT imaging is indicated. She was given GI cocktail which improved her symptoms. This time will prescribe PPI for her to start taking. Recommend to start this medication for the next 6 weeks and follow-up with her PCP to reevaluate this chronic symptoms. Quality:SDOH Health Related Social Needs: No Data to Display PFSH All Active Problems (Updated 04/17/24 @ 21:24 by Maurice Hernández MD) Abdominal cramping (Acute) Anxiety (Chronic) Influenza A (Acute) Nausea (Acute) Vaginal discharge (Acute) Bladder pain (Acute) Depo-Provera contraceptive status (Acute) Vaginal burning (Acute) Abnormal uterine bleeding (AUB) (Acute) 04/2023. Brown vaginal discharge while using DepoProvera. Chronic pelvic pain in female (Acute) Abdominal pain (Acute) Dyspareunia due to medical condition in female (Acute) RLQ abdominal pain (Acute) GERD (gastroesophageal reflux disease) (Chronic) refractory to PPI therapy Medical History Personal history of noncompliance with medical treatment Irritable bowel syndrome with constipation denies issues as of 02/12/23 Pelvic pain Bacterial vaginosis Yeast infection Frequent UTI Surgical History History of dental surgery No significant past surgical history Social History Smoking/Tobacco Use Status: Current every day Tobacco Type: e-cigarettes Smoking risk assessment performed?: Yes Alcohol Intake: never Drug use: Never Substance use type: does not use Household members: significant other and other Details: [facility] 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 Sexually active: Yes Do you feel safe at home: Yes Do you feel safe in your relationship?: Yes
== END 2024-04-17 21:39 | disposition home or self-care (01) ==
PROVIDERS: Emergency Provider Emergency Medicine
DX: R10.84 Generalized abdominal pain (principal); K21.9 Gastro-esophageal reflux disease without esophagitis; F17.290 Nicotine dependence, other tobacco product, uncomplicated
CPT/HCPCS: 80053; 81025; 83690; 93005; 96365; 96375; 99284; 81003; 81015; 83735; 85025; 93010; J2405

== ENCOUNTER 2024-04-22 14:38 | Emergency (ER) | payer MEDICAID, SELFPAY ==
[2024-04-22 14:40] VITALS: BP 120/77; PULSE 101; RESP 15; TEMP 36.6; O2SAT 99
[2024-04-22 14:43] VITALS: BP 120/77; PULSE 101; RESP 15; TEMP 36.6; O2SAT 99
--- NOTE | 2024-04-22 14:54 | W.ED.GENAD ---
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 pantoprazole 40 mg tablet,delayed release (DR/EC) 40 mg PO DAILY Qty: 30 2RF sucralfate 100 mg/mL suspension 10 ml PO 4XD Patient Comments: give 10 MILLILITERS by mouth four times a day ( BEFORE MEALS AND AT BEDTIME) for 7 days ondansetron 4 mg tablet,disintegrating 4 mg PO Q6H PRN (Reason: nausea and vomiting) Qty: 30 0RF Discharge Instructions Additional Instructions: You chose to leave before your vaginal pathogen screen and urinalysis were complete. If this comes back positive I will call you. Follow-up with your primary care provider or [facility]. If you feel more ill or have new symptoms such as persistent vomiting return to the emergency department for reevaluation HPI General Mode of arrival: ambulatory. Date/Time Provider Initiated Documentation: 04/22/24 14:38. Limitations to Documentation: no limitations. Information obtained by: patient. History of Present Illness 19 year old F presents to the emergency department with the chief complaint of burning with urination, abdominal cramping, described as moderate, Patient started experiencing this week(s) (1) and it has been constant. No relieving factors improve symptom(s), No exacerbating factors reported . Patient notes denies chest pain, fever/chills and shortness of breath. Patient did receive the following treatments prior to arrival, none Related Data Home Medications ?Medication ?Instructions ?Recorded ?Confirmed medroxyprogesterone 150 mg/mL 150 mg IM Q12W #1 mL 02/10/24 04/22/24 intramuscular syringe (Depo-Provera) pantoprazole 40 mg tablet,delayed 40 mg PO DAILY #30 tabs 04/17/24 04/22/24 release ondansetron 4 mg disintegrating 4 mg PO Q6H PRN nausea and 04/22/24 tablet vomiting #30 tabs sucralfate 100 mg/mL oral 10 ml PO 4XD 04/22/24 04/22/24 suspension Previous Rx's ?Medication ?Instructions ?Recorded medroxyprogesterone 150 mg/mL 150 mg IM Q12W #1 mL 02/10/24 intramuscular syringe (Depo-Provera) pantoprazole 40 mg tablet,delayed 40 mg PO DAILY #30 tabs 04/17/24 release ondansetron 4 mg disintegrating 4 mg PO Q6H PRN nausea and 04/22/24 tablet vomiting #30 tabs Allergies Allergy/AdvReac Type Severity Reaction Status Date / Time fluconazole (From Diflucan) Allergy Mild nausea Verified 04/22/24 14:44 vomiting Penicillins Allergy hives Verified 04/22/24 14:44 General Stated Complaint: Abd Prob WINNIE: 3 Review of Systems All systems reviewed & are unremarkable except as noted in HPI and below Constitutional Constitutional: Denies chills, Denies fever(s) and Denies weakness Cardiovascular Cardiovascular: Denies chest pain and Denies dyspnea Respiratory Respiratory: Denies cough and Denies dyspnea Gastrointestinal Gastrointestinal: Denies abdominal pain, Reports cramping, Denies nausea and Denies vomiting Genitourinary Genitourinary: Reports dysuria and Reports vaginal discharge Neurologic Neurologic: Denies weakness Exam Const General: no acute distress Orientation: alert HENMI Head: normal to inspection Ears: external ears normal General nose exam: external nose normal Mouth: moist mucous membranes Eyes General: appearance normal, both eyes and all related structures Neck Neck: normal visual inspection Resp Effort & Inspection: normal respiratory effort and able to speak in complete sentences Cardio Rate: regular rate GI Palpation: soft and nontender General: No CVA tenderness Skin General skin exam: no rashes or lesions noted Neuro General: patient alert and patient oriented x3 Extrem General: normal to inspection Psych Mental Status: mental status grossly normal Course Vital Signs Vital signs: Vital Signs Temperature 36.6 C 04/22/24 14:40 Pulse 101 H 04/22/24 14:40 Respiratory Rate 15 04/22/24 14:40 Blood Pressure 120/77 04/22/24 14:40 Pulse Oximetry 99 04/22/24 14:40 Temperature 36.6 C 04/22/24 14:43 Pulse 101 H 04/22/24 14:43 Respiratory Rate 15 04/22/24 14:43 Blood Pressure 120/77 04/22/24 14:43 Blood Pressure Position Sitting 04/22/24 14:43 Pulse Oximetry 99 04/22/24 14:43 Oxygen Delivery Method Room Air 04/22/24 14:43 Oxygen Flow Rate 0 04/22/24 14:43 Pain Level 7 04/22/24 14:43 Medical Decision Making 19-year-old female comes in with continued abdominal cramping and states she also has burning with urination and vaginal discharge. She was seen a few days ago was prescribed pantoprazole and ondansetron but she never picked it up. She denies any fevers or vomiting but is nauseous. She says she has intermittent abdominal cramping but no severe pain. She is stable on arrival. Abdomen is soft and nondistended. She has no tenderness on exam so I doubt surgical pathology such as appendicitis. Given her symptoms I will check a UA, [id number] , vaginal pathogen screen and a GC chlamydia urine. Will also check CBC and CMP and lipase Patient voiced that she would like to proceed with a CAT scan. I discussed that she has had multiple CAT scans with them not shown anything of concern in the past and having repeated imaging with CAT scans can increase your chance of having cancer in the future, despite these risks she still would like to pursue a CAT scan and has decision-making capacity. Patient declined CT after she had time to think about it which I feel is reasonable. Patient is requesting discharged despite not having the urine and vaginal panel screening back. She says she cannot stay any longer due to time commitments elsewhere. Advised I will call her for urinary fat pad screen comes back positive for anything. Differential Diagnosis Differential Diagnosis: UTI, vaginitis Quality:SDOH Health Related Social Needs: No Data to Display PFSH All Active Problems (Updated 04/22/24 @ 17:06 by Gerardo Aparicio MD) Nausea (Acute) Dysuria (Acute) Abdominal cramping (Acute) Anxiety (Chronic) Influenza A (Acute) Nausea (Acute) Vaginal discharge (Acute) Bladder pain (Acute) Depo-Provera contraceptive status (Acute) Vaginal burning (Acute) Abnormal uterine bleeding (AUB) (Acute) 04/2023. Brown vaginal discharge while using DepoProvera. Chronic pelvic pain in female (Acute) Abdominal pain (Acute) Dyspareunia due to medical condition in female (Acute) RLQ abdominal pain (Acute) GERD (gastroesophageal reflux disease) (Chronic) refractory to PPI therapy Medical History Personal history of noncompliance with medical treatment Irritable bowel syndrome with constipation denies issues as of 02/12/23 Pelvic pain Bacterial vaginosis Yeast infection Frequent UTI Surgical History History of dental surgery No significant past surgical history Social History Smoking/Tobacco Use Status: Current every day Tobacco Type: e-cigarettes Smoking risk assessment performed?: Yes Alcohol Intake: never Drug use: Never Substance use type: does not use Household members: significant other and other Details: lives with [facility]. 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 Sexually active: Yes Do you feel safe at home: Yes Do you feel safe in your relationship?: Yes
[2024-04-22 15:45] LABS: Abs Immature Grans 0.01 10^3/uL (0.0-0.06); Absolute Basophil Count 0.06 10^3/uL (0.0-0.2); Absolute Eosinophil Count 0.11 10^3/uL (0.0-0.7); Absolute Monocyte Count 0.39 10^3/uL (0.1-0.8); Absolute Neutrophil Count 2.23 10^3/uL (1.2-6.7); Basophils % 1.5 %; Eosinophils % 2.7 %; HCT 42.1 % (36.0-46.0); HGB 14.3 g/dL (11.2-15.7); Immature Grans % 0.2 %; Lymphocytes % 31.7 %; MCH 28.9 pg (27.0-33.0); MCV 85 fL (80-95); Monocytes % 9.5 %; Neutrophils % 54.4 %; Platelet Count 355 10^3/uL (130-400); RBC 4.94 10^6/uL (3.93-5.22); RDW-SD 36.8 fL
[2024-04-22] MEDS: Ondansetron 4 MG/2 ML VIAL IVP (15:57)
[2024-04-22] MEDS: Ketorolac 15 MG/ML VIAL IVP (15:57)
[2024-04-22 16:03] LABS: Magnesium 2.4 mg/dL (1.8-2.4)
[2024-04-22 16:07] LABS: ALT 29 U/L (14-59); AST 16 U/L (15-37); Alkaline Phosphatase 103 U/L (46-116); Anion Gap 13.1 mmol/L (3-11); BUN 8 mg/dL (7-18); Bilirubin, Total 0.5 mg/dL (0.2-1.0); CO2 27.9 mmol/L (21.0-32.0); CREATININE 0.6 mg/dL (0.55-1.02); Calcium 9.7 mg/dL (8.5-10.1); Chloride 102 mmol/L (98-107); Glucose 78 mg/dL (74-106); Lipase 42 U/L (<78); Potassium 3.4 mmol/L (3.5-5.1); Sodium 143 mmol/L (136-145); Total Protein 8.8 g/dL (6.4-8.2)
[2024-04-22 17:18] VITALS: BP 127/84; PULSE 77; RESP 16; TEMP 36.6; O2SAT 98
[2024-04-22 17:18] LABS: Bilirubin Negative (Negative); Blood Negative (Negative); Clarity Clear (Clear); Glucose Negative (Negative); Ketones Negative (Negative); Leukocyte Esterase Negative (Negative); Nitrite Negative (Negative); Specific Gravity >= 1.030 (1.005-1.025); pH 6.5 (5-8)
--- NOTE | 2024-04-22 18:28 | NUR.NOTE ---
Patient called to find out results of tests performed today. Advised patient that these are send out tests and she would only be contacted if they came back positive. Also advised patient that urinalysis showed dehydration and she needed to drink more water. Patient stated she understood the information provided to her at this time.
[2024-04-23 11:02] LABS: Chlamydia Result Negative (Negative); GC Result Negative (Negative)
== END 2024-04-22 17:19 | disposition home or self-care (01) ==
PROVIDERS: Emergency Provider Emergency Medicine
DX: R30.0 Dysuria; R10.30 Lower abdominal pain, unspecified; R11.0 Nausea; F17.290 Nicotine dependence, other tobacco product, uncomplicated
CPT/HCPCS: 80053; 81025; 83690; 87491; 87591; 96374; 96375; 99284; 81003; 83735; 85025; 87480; 87510; 87660; J1885; J2405

== ENCOUNTER 2024-05-10 18:14 | Emergency (ER) | payer MEDICAID, SELFPAY ==
[2024-05-10 18:15] VITALS: BP 114/75; PULSE 94; RESP 10; TEMP 36.5; O2SAT 98
--- NOTE | 2024-05-10 18:35 | ED.GENADUL_ITS ---
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 dicyclomine 20 mg tablet 20 mg PO QID Patient Comments: take 1 tablet by mouth four times a day for 7 days hyoscyamine sulfate 0.125 mg tablet, sublingual 0.125 mg PO QID PRN Patient Comments: DISSOLVE 1 TABLET UNDER THE TONGUE 4 TIMES DAILY AFTER MEALS NEEDED FOR A BDOMINAL PAIN ondansetron 4 mg tablet,disintegrating 4 mg PO Q6H PRN Patient Comments: DISSOLVE 1 TABLET ON TONGUE EVERY 6 HOURS NEEDED FOR NAUSEA AND VOMITING polyethylene glycol 3350 17 gram/dose powder 17 g PO DAILY PRN Patient Comments: MIX 17G (1 CAPFUL) WITH 8 OUNCES OF LIQUID AND DRINK ONCE DAILY albuterol sulfate 2.5 mg /3 mL (0.083 %) solution for nebulization 2.5 mg inhalation BID PRN HPI General Mode of arrival: ambulatory . Date/Time Provider Initiated Documentation: 05/10/24 18:15 . Limitations to Documentation: no limitations . Information obtained by: patient . History of Present Illness 19 year old F presents to the emergency department with the chief complaint of nausea, upper abdominal pain, described as moderate, Patient started experiencing this month(s) (1) and it has been constant. No relieving factors improve symptom(s), No exacerbating factors reported . Patient notes no other symptoms.; denies chest pain, fever/chills and shortness of breath. Patient did receive the following treatments prior to arrival, none Related Data Home Medications ?Medication ?Instructions ?Recorded ?Confirmed medroxyprogesterone 150 mg/mL 150 mg IM Q12W #1 mL 02/10/24 05/10/24 intramuscular syringe (Depo-Provera) prochlorperazine maleate 5 mg 5 mg PO BID PRN nausea and 04/29/24 05/10/24 tablet (Compazine) vomiting #30 tabs albuterol sulfate 2.5 mg/3 mL 2.5 mg inhalation BID PRN 05/10/24 05/10/24 (0.083 %) solution for nebulization dicyclomine 20 mg tablet 20 mg PO QID 05/10/24 05/10/24 hyoscyamine sulfate 0.125 mg 0.125 mg PO QID PRN 05/10/24 05/10/24 sublingual tablet ondansetron 4 mg disintegrating 4 mg PO Q6H PRN 05/10/24 05/10/24 tablet polyethylene glycol 3350 17 17 g PO DAILY PRN 05/10/24 05/10/24 gram/dose oral powder Previous Rx's ?Medication ?Instructions ?Recorded medroxyprogesterone 150 mg/mL 150 mg IM Q12W #1 mL 02/10/24 intramuscular syringe (Depo-Provera) prochlorperazine maleate 5 mg 5 mg PO BID PRN nausea and 04/29/24 tablet (Compazine) vomiting #30 tabs Allergies Allergy/AdvReac Type Severity Reaction Status Date / Time fluconazole (From Diflucan) Allergy Mild nausea Verified 05/10/24 18:22 vomiting Penicillins Allergy hives Verified 05/10/24 18:22 General Stated Complaint: Abd Prob WINNIE: 3 Review of Systems All systems reviewed & are unremarkable except as noted in HPI and below Constitutional Constitutional: Denies chills, Denies fever(s) and Denies weakness Cardiovascular Cardiovascular: Denies chest pain and Denies dyspnea Respiratory Respiratory: Denies cough and Denies dyspnea Gastrointestinal Gastrointestinal: Reports abdominal pain, Reports nausea and Denies vomiting Genitourinary Genitourinary: Denies dysuria Neurologic Neurologic: Denies weakness Endocrine Endocrine: Denies cold intolerance and Denies heat intolerance Exam Const General: no acute distress Orientation: alert HENNE Head: normal to inspection Ears: external ears normal General nose exam: external nose normal Mouth: moist mucous membranes Eyes General: appearance normal, both eyes and all related structures Neck Neck: normal visual inspection Resp Effort & Inspection: normal respiratory effort and able to speak in complete sentences Cardio Rate: regular rate GI Palpation: soft, not firm, no guarding and tender Skin General skin exam: no rashes or lesions noted Neuro General: patient alert and patient oriented x3 Extrem General: normal to inspection Psych Mental Status: mental status grossly normal Course Vital Signs Vital signs: Vital Signs Temperature 36.5 C 05/10/24 18:15 Pulse 94 H 05/10/24 18:15 Respiratory Rate 10 L 05/10/24 18:15 Blood Pressure 114/75 05/10/24 18:15 Pulse Oximetry 98 05/10/24 18:15 Temperature 36.5 C 05/10/24 18:15 Temperature Source Oral 05/10/24 18:15 Pulse 94 H 05/10/24 18:15 Respiratory Rate 10 L 05/10/24 18:15 Blood Pressure 114/75 05/10/24 18:15 Blood Pressure Position Sitting 05/10/24 18:15 Pulse Oximetry 98 05/10/24 18:15 Oxygen Delivery Method Room Air 05/10/24 18:15 Oxygen Flow Rate 0 05/10/24 18:15 Pain Level 5 05/10/24 18:15 Medical Decision Making 19-year-old female comes in with complaints of nausea and upper abdominal pain which has been going on for over a month. She is seeing GI at [facility] and states she had a endoscopy a few weeks ago. She has not followed up with them but is trying and states they are not calling her back. She denies any vomiting, vaginal bleeding or discharge. She is stable on arrival. She has mild epigastric tenderness otherwise no abdominal tenderness on exam. There is no peritoneal findings. She has had imaging in the past including a CT which did not show any acute findings and based on her exam I doubt acute surgical pathology. Will treat her symptoms with IV fluids and droperidol and Mylanta and also check a CBC CMP lipase UA and hcg and reassess. Patient reportedly eloped before any lab work was done. She was clinically sober and had decision-making capacity, this is more of a chronic issue for her and I do not feel she requires a call back to return to the ED Medical Records Medical records reviewed: Yes I reviewed the patient's medical records. Lab Data Lab results reviewed: Yes I reviewed the patient's lab results. Quality:SDOH Health Related Social Needs: No Data to Display PFSH All Active Problems (Updated 05/10/24 @ 20:21 by Gerardo Aparicio MD) Nausea (Acute) Dysuria (Acute) Abdominal cramping (Acute) Anxiety (Chronic) Nausea (Acute) Vaginal discharge (Acute) Bladder pain (Acute) Depo-Provera contraceptive status (Acute) Vaginal burning (Acute) Abnormal uterine bleeding (AUB) (Acute) 04/2023. Brown vaginal discharge while using DepoProvera. Chronic pelvic pain in female (Acute) Abdominal pain (Acute) Dyspareunia due to medical condition in female (Acute) RLQ abdominal pain (Acute) GERD (gastroesophageal reflux disease) (Chronic) refractory to PPI therapy Medical History Personal history of noncompliance with medical treatment Irritable bowel syndrome with constipation denies issues as of 02/12/23 Pelvic pain Bacterial vaginosis Yeast infection Frequent UTI Surgical History History of dental surgery No significant past surgical history Social History Smoking/Tobacco Use Status: Current every day Tobacco Type: e-cigarettes Smoking risk assessment performed?: Yes Alcohol Intake: never Drug use: Never Substance use type: does not use Household members: significant other and other Details: lives with [facility]. 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 Sexually active: Yes Do you feel safe at home: Yes Do you feel safe in your relationship?: Yes
== END 2024-05-10 19:11 | disposition left against medical advice (07) ==
PROVIDERS: Emergency Provider Emergency Medicine
DX: R10.10 Upper abdominal pain, unspecified (principal); R11.0 Nausea; Z53.29 Procedure and treatment not carried out because of patient's decision for other reasons
CPT/HCPCS: 80053; 83690; 99282; 82248; 83735; 85025

== ENCOUNTER 2024-05-14 09:07 | Emergency (ER) | payer MEDICAID, SELFPAY ==
[2024-05-14 09:13] VITALS: BP 108/65; PULSE 76; RESP 15; TEMP 36.9; O2SAT 100
[2024-05-14 09:16] VITALS: BP 108/65; PULSE 76; RESP 15; TEMP 36.9; O2SAT 100
[2024-05-14] MEDS: Breeza Beverage 473 ML BTL PO ×2 (09:46→09:47)
[2024-05-14] MEDS: Omnipaque 350 MG/ML 50 ML BTL PO (09:48)
--- NOTE | 2024-05-14 10:43 | W.ED.GENAD ---
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 dicyclomine 20 mg tablet 20 mg PO QID Patient Comments: take 1 tablet by mouth four times a day for 7 days ondansetron 4 mg tablet,disintegrating 4 mg PO Q6H PRN Patient Comments: DISSOLVE 1 TABLET ON TONGUE EVERY 6 HOURS NEEDED FOR NAUSEA AND VOMITING polyethylene glycol 3350 17 gram/dose powder 17 g PO DAILY PRN Patient Comments: MIX 17G (1 CAPFUL) WITH 8 OUNCES OF LIQUID AND DRINK ONCE DAILY albuterol sulfate 2.5 mg /3 mL (0.083 %) solution for nebulization 2.5 mg inhalation BID PRN HPI General Mode of arrival: ambulatory. Date/Time Provider Initiated Documentation: 05/14/24 09:19. Limitations to Documentation: no limitations. Information obtained by: patient. HPI Narrative: HISTORY OF PRESENT ILLNESS The patient presents with sudden onset of abdominal pain last night, initially mild but intensified this morning. Pain is described as pressure and sharp sensations, localized in the upper and right mid to lower abdomen, exacerbated by eating. No rashes, swelling, dysuria, or vaginal discharge. Last menstrual period on 02/24/2024, currently on Depo-Provera, not sexually active. No significant medical history apart from chronic abdominal pain, under care of physician ophthalmologist at [facility]. Recent biopsy revealed mild esophagitis, but current pain perceived as stomach pain. Gastric emptying scan scheduled for 06/04/2024. Took dicyclomine 20 mg this morning without relief. Nauseous, no antiemetics taken. Unemployed, good diet. Advanced imaging in 03/2024. Unable to reach physician ophthalmologist directly, left message with nursing staff. Related Data Home Medications ?Medication ?Instructions ?Recorded ?Confirmed medroxyprogesterone 150 mg/mL 150 mg IM Q12W #1 mL 02/10/24 05/14/24 intramuscular syringe (Depo-Provera) prochlorperazine maleate 5 mg 5 mg PO BID PRN nausea and 04/29/24 05/14/24 tablet (Compazine) vomiting #30 tabs albuterol sulfate 2.5 mg/3 mL 2.5 mg inhalation BID PRN 05/10/24 05/14/24 (0.083 %) solution for nebulization dicyclomine 20 mg tablet 20 mg PO QID 05/10/24 05/14/24 ondansetron 4 mg disintegrating 4 mg PO Q6H PRN 05/10/24 05/14/24 tablet polyethylene glycol 3350 17 17 g PO DAILY PRN 05/10/24 05/14/24 gram/dose oral powder Previous Rx's ?Medication ?Instructions ?Recorded medroxyprogesterone 150 mg/mL 150 mg IM Q12W #1 mL 02/10/24 intramuscular syringe (Depo-Provera) prochlorperazine maleate 5 mg 5 mg PO BID PRN nausea and 04/29/24 tablet (Compazine) vomiting #30 tabs Allergies Allergy/AdvReac Type Severity Reaction Status Date / Time fluconazole (From Diflucan) Allergy Mild nausea Verified 05/14/24 09:16 vomiting Penicillins Allergy hives Verified 05/14/24 09:16 General Stated Complaint: Abd Prob WINNIE: 3 Review of Systems All systems reviewed & are unremarkable except as noted in HPI and below Constitutional Constitutional: Denies fever(s) Exam Narrative Exam Narrative: PHYSICAL EXAM General Appearance: Normal. No acute distress. Vital signs: Within normal limits. HEENT: Within normal limits. Respiratory: Lungs clear. Cardiovascular: Heart regular rate and rhythm. No murmurs rubs gallops. Gastrointestinal: Abdomen soft, tender in epigastric area and right lower abdomen. No rebound tenderness. No guarding. Skin: Warm and dry, no rash. Neurological: Normal. Course Vital Signs Vital signs: Vital Signs Temperature 36.9 C 05/14/24 09:13 Pulse 76 05/14/24 09:13 Respiratory Rate 15 05/14/24 09:13 Blood Pressure 108/65 05/14/24 09:13 Pulse Oximetry 100 05/14/24 09:13 Temperature 36.9 C 05/14/24 09:16 Temperature Source Oral 05/14/24 09:16 Pulse 76 05/14/24 09:16 Respiratory Rate 15 05/14/24 09:16 Blood Pressure 108/65 05/14/24 09:16 Blood Pressure Position Sitting 05/14/24 09:16 Pulse Oximetry 100 05/14/24 09:16 Oxygen Delivery Method Room Air 05/14/24 09:16 Oxygen Flow Rate 0 05/14/24 09:16 Pain Level 7 05/14/24 09:17 Medical Decision Making ASSESSMENT AND PLAN Initial Assessment: Sudden onset of abdominal pain last night, worsened by morning. Pain described as pressure and sharp in upper and right mid to lower abdomen. Chronic abdominal pain, under GI care at [facility]. Recent biopsy indicated mild esophagitis, current pain feels different. Gastric emptying scan scheduled for 06/04/2024. Took dicyclomine 20 mg this morning without relief. No fever, rash, swelling, dysuria, or vaginal discharge. Nauseous, no antiemetics taken. Tenderness in epigastric area and right lower abdomen. Differential Diagnosis: - Appendicitis: Concern due to location and nature of pain. Plan to evaluate with CT scan. - Other abdominal issues: Consideration due to chronic pain history and current symptoms. Plan to evaluate with blood work for liver, gallbladder, and pancreas. ED Course: - Recommended CT scan and blood work to evaluate liver, gallbladder, and pancreas. - Offered IV acetaminophen and ondansetron for pain and nausea. - Patient informed nursing staff of doctor's appointment at [facility], refused treatment plan, left against medical advice. - CT and blood work not completed. Final Assessment: Sudden onset of abdominal pain with tenderness in epigastric area and right lower abdomen. Concern for possible appendicitis or other acute intra-abdominal process. Recommended CT scan and blood work, offered IV acetaminophen and ondansetron. Patient refused treatment and left against medical advice. Clinical Impression: - Abdominal pain - Possible appendicitis - Other abdominal issues Disposition: - Left against medical advice MDM Components Evaluation: - Number of Differential Diagnoses or Management Options: Appendicitis, other abdominal issues - Amount and Complexity of Data Reviewed: Recommended CT scan and blood work - Risk of Complication and Morbidity or Mortality: Potential risk of appendicitis or other serious abdominal issues This document was written with the assistance of ROSCOE Mak. The patient consented to its use. Quality:SDOH Health Related Social Needs: No Data to Display PFSH All Active Problems (Updated 05/14/24 @ 12:26 by Vikash Alvarez MD) Nausea (Acute) Dysuria (Acute) Abdominal cramping (Acute) Anxiety (Chronic) Nausea (Acute) Vaginal discharge (Acute) Bladder pain (Acute) Depo-Provera contraceptive status (Acute) Vaginal burning (Acute) Abnormal uterine bleeding (AUB) (Acute) 04/2023. Brown vaginal discharge while using DepoProvera. Chronic pelvic pain in female (Acute) Abdominal pain (Acute) Dyspareunia due to medical condition in female (Acute) RLQ abdominal pain (Acute) GERD (gastroesophageal reflux disease) (Chronic) refractory to PPI therapy Medical History Personal history of noncompliance with medical treatment Irritable bowel syndrome with constipation denies issues as of 02/12/23 Pelvic pain Bacterial vaginosis Yeast infection Frequent UTI Surgical History History of dental surgery No significant past surgical history Social History Smoking/Tobacco Use Status: Current every day Tobacco Type: e-cigarettes Smoking risk assessment performed?: Yes Alcohol Intake: never Drug use: Never Substance use type: does not use Household members: significant other and other Details: lives with [facility]. 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 Sexually active: Yes Do you feel safe at home: Yes Do you feel safe in your relationship?: Yes
== END 2024-05-14 12:27 | disposition left against medical advice (07) ==
PROVIDERS: Emergency Provider Student in an Organized Health Care Education/Training Program
DX: R10.31 Right lower quadrant pain (principal); R11.0 Nausea; Z53.29 Procedure and treatment not carried out because of patient's decision for other reasons
CPT/HCPCS: 80053; 83690; 99283; 83735; 85025; Q9967

== ENCOUNTER 2024-05-14 17:15 | Emergency (ER) | payer MEDICAID, SELFPAY ==
[2024-05-14 17:16] VITALS: BP 119/79; PULSE 86; RESP 16; TEMP 36.8; O2SAT 99
[2024-05-14 17:18] VITALS: BP 119/79; PULSE 86; RESP 16; TEMP 36.8; O2SAT 99
--- NOTE | 2024-05-14 17:29 | DI.CT_ITS ---
Exam(s) CT ABDOMEN PELVIS WO EXAM: CT ABDOMEN PELVIS WO CLINICAL HISTORY: RUQ abd pain. TECHNIQUE: Imaging Protocol: Axial computed tomography images with coronal and sagittal reformatted images were created and reviewed. COMPARISON: CT CT ABDOMEN PELVIS WO from 03/05/2024 FINDINGS: The patient requested no IV contrast. Lack of IV contrast does limit evaluation of the abdominal pel adriel organs. ABDOMEN: Lung Bases: Normal where visualized. Liver: Normal density. No measurable mass. Gallbladder and biliary tract: No radiodense calculus or biliary ductal dilation. Pancreas: Normal density, no abnormal calcifications or inflammatory process. Spleen: Normal. Kidneys: Normal size, contour and axis.No radiodense stones or obstructive uropathy. No masses seen. Adrenal glands: No mass is seen. Lymph nodes: Within normal limits. Abdominal Aorta: Abdominal portion non-dilated. PELVIS: Bladder:The urinary bladder is incompletely distended but no gross abnormalities identified. Bowel: No obstruction or bowel wall thickening. Appendix is unremarkable. Peritoneal cavity: No ascites, collection or mesenteric inflammatory response. No free air. Reproductive organs: Unremarkable as visualized. Bones: Within normal limits. Soft Tissues: Within normal limits. IMPRESSION: 1. No acute abdominal or pelvic process. 2. No evidence of cholelithiasis or biliary ductal dilatation. 3. No evidence of ureterolithiasis or obstructive uropathy. 4. No evidence of appendicitis. RADIATION DOSE DELIVERED: 215.7mGy.cm Total DLP DATA REPOSITORY: All CT scans at this facility are submitted to the National Radiology Data Registry (NRDR) Dose Index Registry (DIR) with the [employer] ([employer]). RADIATION OPTIMIZATION: All CT scans at this facility use at least one of these dose optimization te chniques: automated exposure control; mA and/or kV adjustment per patient size (includes targeted exa ms where dose is matched to clinical indication); or iterative reconstruction.
--- NOTE | 2024-05-14 17:30 | W.ED.GENAD ---
Discharge Plan Disposition Patient Disposition: Home Condition: Stable Discharge Details Clinical Impression: Abdominal pain Primary Care Provider: Unknown,Unknown ED Provider: Rowena Mead Home Meds and New Rx's Prescriptions: Continued prochlorperazine maleate [Compazine] 5 mg tablet 5 mg PO BID PRN (Reason: nausea and vomiting) Qty: 30 0RF medroxyprogesterone [Depo-Provera] 150 mg/mL syringe 150 mg IM Q12W Qty: 1 4RF Rx Instructions: please allow pt to pick pulling machine tender med earlier than 12w interval. dicyclomine 20 mg tablet 20 mg PO QID Patient Comments: take 1 tablet by mouth four times a day for 7 days ondansetron 4 mg tablet,disintegrating 4 mg PO Q6H PRN Patient Comments: DISSOLVE 1 TABLET ON TONGUE EVERY 6 HOURS NEEDED FOR NAUSEA AND VOMITING polyethylene glycol 3350 17 gram/dose powder 17 g PO DAILY PRN Patient Comments: MIX 17G (1 CAPFUL) WITH 8 OUNCES OF LIQUID AND DRINK ONCE DAILY albuterol sulfate 2.5 mg /3 mL (0.083 %) solution for nebulization 2.5 mg inhalation BID PRN Discharge Instructions Instructions: Abdominal Pain, Adult ED Additional Instructions: At this time there is no evidence for infection or abnormality on your lab work. CT is largely unremarkable. No evidence for appendicitis or any abnormality. Follow up with primary care provider in 3-5 days. Return to ED sooner if any worsening or concerns. Please take Tylenol or Ibuprofen with food every 4-6 hours as needed for pain and swelling. Thank you for allowing us to care for you today. Referrals: Primary Care Provider [Outside] - 5 days HPI General Mode of arrival: ambulatory. Date/Time Provider Initiated Documentation: 05/14/24 17:19. Limitations to Documentation: no limitations. Information obtained by: patient, RN notes reviewed and old records reviewed. HPI Narrative: 19-year-old female presents to the ER, with the second time today with a chief complaint of upper abdominal pain described as pressure associated with the nausea. Reports intermittent waves. She left AMA this morning [place] to [place] [facility] [place] left prior to any workup completed. She reports taking the dicyclomine this morning with little to no relief. She states that this is unlike any pain she is ever had before. She is currently undergoing care with [place] [facility] [place] does have a history of irritable bowel syndrome and constipation, pelvic pain frequent UTIs. She denies any fever chills no actual vomiting. Related Data Home Medications ?Medication ?Instructions ?Recorded ?Confirmed medroxyprogesterone 150 mg/mL 150 mg IM Q12W #1 mL 02/10/24 05/14/24 intramuscular syringe (Depo-Provera) prochlorperazine maleate 5 mg 5 mg PO BID PRN nausea and 04/29/24 05/14/24 tablet (Compazine) vomiting #30 tabs albuterol sulfate 2.5 mg/3 mL 2.5 mg inhalation BID PRN 05/10/24 05/14/24 (0.083 %) solution for nebulization dicyclomine 20 mg tablet 20 mg PO QID 05/10/24 05/14/24 ondansetron 4 mg disintegrating 4 mg PO Q6H PRN 05/10/24 05/14/24 tablet polyethylene glycol 3350 17 17 g PO DAILY PRN 05/10/24 05/14/24 gram/dose oral powder Previous Rx's ?Medication ?Instructions ?Recorded medroxyprogesterone 150 mg/mL 150 mg IM Q12W #1 mL 02/10/24 intramuscular syringe (Depo-Provera) prochlorperazine maleate 5 mg 5 mg PO BID PRN nausea and 04/29/24 tablet (Compazine) vomiting #30 tabs Allergies Allergy/AdvReac Type Severity Reaction Status Date / Time fluconazole (From Diflucan) Allergy Mild nausea Verified 05/14/24 17:18 vomiting Penicillins Allergy hives Verified 05/14/24 17:18 General Stated Complaint: Abd Prob WINNIE: 3 Review of Systems All systems reviewed & are unremarkable except as noted in HPI and below Gastrointestinal Gastrointestinal: Reports abdominal pain and Reports nausea Exam Narrative Exam Narrative: Constitutional: Alert and oriented x3. Appears stated age. Normal body habitus. Head: Normocephalic, no trauma. Eyes: Pupils PERRL, Red reflex noted, EOM's intact. Eyelids symmetrical without lesions, discharge, or swelling. ENT: Bilateral TM's WNL, External ear normal to inspection, no mastoid TTP, swelling, or erythema, Nasal turbinates WNL, no nasal discharge. Normal dentition, Posterior pharynx WNL, no exudate. Chest: RRR, Normal S1, S2, distal pulses intact. Resp: Lungs clear to auscultation bilaterally, no wheezes, rales, or rhonchi. Abdomen: Soft, non-distended, Normoactive bowel sounds all 4 quads. Tenderness with palpation of the right upper quadrant. Musculoskeletal: Normal gait, Moves all 4 extremities without difficulty. Skin: No suspicious rashes or lesions. Capillary refill less than 2 sec. Neurologic: Cranial nerves II-XII intact. Alert and oriented x 3. Motor: No deficits noted. Sensory: Intact bilaterally all 4 extremities. Hematologic/Lymphatic: No ecchymosis, no lymphadenopathy. Course Vital Signs Vital signs: Vital Signs Temperature 36.8 C 05/14/24 17:16 Pulse 86 05/14/24 17:16 Respiratory Rate 16 05/14/24 17:16 Blood Pressure 119/79 05/14/24 17:16 Pulse Oximetry 99 05/14/24 17:16 Temperature 36.8 C 05/14/24 17:18 Pulse 86 05/14/24 17:18 Respiratory Rate 16 05/14/24 17:18 Blood Pressure 119/79 05/14/24 17:18 Pulse Oximetry 99 05/14/24 17:18 Medical Decision Making 19-year-old female presents to the ER, with the second time today with a chief complaint of upper abdominal pain described as pressure associated with the nausea. Reports intermittent waves. She left AMA this morning due to a [place] [facility] [place] She left prior to any workup completed. She reports taking the dicyclomine this morning with little to no relief. She states that this is unlike any pain she is ever had before. She is currently undergoing [place] with [place] [facility] [place] does have a history of irritable bowel syndrome and constipation, pelvic pain frequent UTIs. She denies any fever chills no actual vomiting. Differential diagnose includes not limited to cholecystitis, constipation, exacerbation of chronic abdominal pain, appendicitis, gastroenteritis, UTI. Informed by information technology professor that patient is refusing IV contrast. On medical record review she has always had abdominal CTs without contrast. I am unsure to the reasoning behind this but we will go ahead and do the CT without contrast. Workup is largely unremarkable no abnormal labs CTs also shows no evidence for appendicitis or any acute abnormality. On patient reevaluation and discussion of the CT and lab results. Patient states that she is concerned about BV or vaginal infection. This is the first time she mentioned any vaginal discharge to me. Will get a vaginal pathogen swab and GC chlamydia and discharge to home with follow-up. This text was generated using [employer]ation system, please disregard any oddities of phrase or misspellings. Medical Records Medical records reviewed: Yes I reviewed the patient's medical records. Imaging Data Radiologic Study: Imaging: CT Scan Radiologist's impression: FINDINGS: The patient requested no IV contrast. Lack of IV contrast does limit evaluation of the abdominal pelvic organs. ABDOMEN: Lung Bases: Normal where visualized. Liver: Normal density. No measurable mass. Gallbladder and biliary tract: No radiodense calculus or biliary ductal dilation. Pancreas: Normal density, no abnormal calcifications or inflammatory process. Spleen: Normal. Kidneys: Normal size, contour and axis.No radiodense stones or obstructive uropathy. No masses seen. Adrenal glands: No mass is seen. Lymph nodes: Within normal limits. Abdominal Aorta: Abdominal portion non-dilated. PELVIS: Bladder:The urinary bladder is incompletely distended but no gross abnormalities identified. Bowel: No obstruction or bowel wall thickening. Appendix is unremarkable. Peritoneal cavity: No ascites, collection or mesenteric inflammatory response. No free air. Reproductive organs: Unremarkable as visualized. Bones: Within normal limits. Soft Tissues: Within normal limits. IMPRESSION: 1. No acute abdominal or pelvic process. 2. No evidence of cholelithiasis or biliary ductal dilatation. 3. No evidence of ureterolithiasis or obstructive uropathy. 4. No evidence of appendicitis. Lab Data Lab results reviewed: Yes I reviewed the patient's lab results. Labs: Laboratory Tests Range/Units 05/14/24 05/14/24 17:45 17:50 WBC (4.4-10.8) 10^3/uL 5.13 RBC (3.93-5.22) 10^6/uL 4.39 Hgb (11.2-15.7) g/dL 13.0 Hct (36.0-46.0) % 38.8 MCV (80-95) fL 88 MCH (27.0-33.0) pg 29.6 MCHC (32.0-36.0) % 33.5 RDW (11.7-14.6) % 13.0 Plt Count (130-400) 10^3/uL 255 MPV (8.0-11.0) fL 11.0 Immature Gran % % 0.2 Neutrophils % % 54.6 Lymphocytes % % 30.6 Monocytes % % 10.7 Eosinophils % % 3.1 Basophils % % 0.8 Nucleated RBC % (0.0-0.3) % 0.0 Absolute Neutrophils (1.2-6.7) 10^3/uL 2.80 Absolute Lymphocytes (1.2-3.4) 10^3/uL 1.57 Absolute Monocytes (0.1-0.8) 10^3/uL 0.55 Absolute Eosinophils (0.0-0.7) 10^3/uL 0.16 Absolute Basophils (0.0-0.2) 10^3/uL 0.04 Sodium (136-145) mmol/L 141 Potassium (3.5-5.1) mmol/L 3.8 Chloride (98-107) mmol/L 105 Carbon Dioxide (21.0-32.0) mmol/L 26.6 Anion Gap (3-11) mmol/L 9.4 BUN (7-18) mg/dL 9 Creatinine (0.55-1.02) mg/dL 0.6 Est GFR (CKD-EPI 2020) (mL/min/1.73m2) 131.70 Glucose (74-106) mg/dL 97 Calcium (8.5-10.1) mg/dL 9.4 Magnesium (1.8-2.4) mg/dL 2.3 Total Bilirubin (0.2-1.0) mg/dL 0.3 AST (15-37) U/L 16 ALT (14-59) U/L 18 Alkaline Phosphatase (46-116) U/L 91 Total Protein (6.4-8.2) g/dL 7.9 Albumin (3.4-5.0) g/dL 4.6 Lipase (<78) U/L 42 Urine Color (Yellow) Yellow Urine Clarity (Clear) Clear Urine pH (5-8) 7.0 Ur Specific [place] (1.005-1.025) 1.025 Urine Protein (Neg-Trace) mg/dL 30 H Urine Ketones (Negative) mg/dL Negative Urine Blood (Negative) Negative Urine Nitrite (Negative) Negative Urine Bilirubin (Negative) Negative Urine Urobilinogen (Up to 0.2) mg/dL 0.2 Ur Leukocyte Esterase (Negative) Negative Urine RBC (0-2) HPF Negative Urine WBC (0-5) HPF Negative Ur Epithelial Cells (Negative) HPF Negative Urine Crystals (Negative) HPF Negative Urine Bacteria (Negative) HPF Negative Urine Casts (Negative) LPF Negative Urine Mucus (Negative) Negative Urine Other (Negative) Negative Ur Culture Indicated? No Urine Glucose (Negative) mg/dL Negative Quality:SDOH Health Related Social Needs: No Data to Display PFSH All Active Problems (Updated 05/14/24 @ 18:28 by Rowena Mead NP) Nausea (Acute) Dysuria (Acute) Abdominal cramping (Acute) Anxiety (Chronic) Nausea (Acute) Vaginal discharge (Acute) Bladder pain (Acute) Depo-Provera contraceptive status (Acute) Vaginal burning (Acute) Abnormal uterine bleeding (AUB) (Acute) 04/2023. Brown vaginal discharge while using DepoProvera. Chronic pelvic pain in female (Acute) Abdominal pain (Acute) Dyspareunia due to medical condition in female (Acute) RLQ abdominal pain (Acute) GERD (gastroesophageal reflux disease) (Chronic) refractory to PPI therapy Medical History Personal history of noncompliance with medical treatment Irritable bowel syndrome with constipation denies issues as of 02/12/23 Pelvic pain Bacterial vaginosis Yeast infection Frequent UTI Surgical History History of dental surgery No significant past surgical history Social History Smoking/Tobacco Use Status: Current every day Tobacco Type: e-cigarettes Smoking risk assessment performed?: Yes Alcohol Intake: never Drug use: Never Substance use type: does not use Household members: significant other and other Details: lives with [facility]. 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 Sexually active: Yes Do you feel safe at home: Yes Do you feel safe in your relationship?: Yes
[2024-05-14 17:55] LABS: Bilirubin Negative (Negative); Blood Negative (Negative); Clarity Clear (Clear); Glucose Negative (Negative); Ketones Negative (Negative); Leukocyte Esterase Negative (Negative); Nitrite Negative (Negative); Specific Gravity 1.025 (1.005-1.025); Urobilinogen 0.2 mg/dL (Up to 0.2)
[2024-05-14 17:56] LABS: Bacteria Negative HPF (Negative); C & S Indicated? No; Casts Negative LPF (Negative); Crystals Negative HPF (Negative); Epithelial Cells Negative HPF (Negative); Mucus Negative (Negative); Other Cells Negative (Negative); RBC Negative HPF (0-2); WBC Negative HPF (0-5)
[2024-05-14 18:08] LABS: Abs Immature Grans 0.01 10^3/uL (0.0-0.06); Absolute Basophil Count 0.04 10^3/uL (0.0-0.2); Absolute Eosinophil Count 0.16 10^3/uL (0.0-0.7); Absolute Lymphocyte Count 1.57 10^3/uL (1.2-3.4); Absolute Monocyte Count 0.55 10^3/uL (0.1-0.8); Basophils % 0.8 %; Eosinophils % 3.1 %; HCT 38.8 % (36.0-46.0); Immature Grans % 0.2 %; Lymphocytes % 30.6 %; MCH 29.6 pg (27.0-33.0); MCHC 33.5 % (32.0-36.0); MCV 88 fL (80-95); Monocytes % 10.7 %; Neutrophils % 54.6 %; Platelet Count 255 10^3/uL (130-400); RBC 4.39 10^6/uL (3.93-5.22); RDW-SD 42.4 fL; WBC 5.13 10^3/uL (4.4-10.8)
[2024-05-14 18:13] LABS: ALT 18 U/L (14-59); AST 16 U/L (15-37); Albumin 4.6 g/dL (3.4-5.0); Alkaline Phosphatase 91 U/L (46-116); Anion Gap 9.4 mmol/L (3-11); BUN 9 mg/dL (7-18); Bilirubin, Total 0.3 mg/dL (0.2-1.0); CO2 26.6 mmol/L (21.0-32.0); CREATININE 0.6 mg/dL (0.55-1.02); Calcium 9.4 mg/dL (8.5-10.1); Chloride 105 mmol/L (98-107); Glucose 97 mg/dL (74-106); Lipase 42 U/L (<78); Magnesium 2.3 mg/dL (1.8-2.4); Potassium 3.8 mmol/L (3.5-5.1); Sodium 141 mmol/L (136-145); Total Protein 7.9 g/dL (6.4-8.2)
[2024-05-14 18:45] VITALS: BP 97/55; PULSE 90; TEMP 37.1; O2SAT 100
[2024-05-17 12:48] LABS: Chlamydia Result Negative (Negative); GC Result Negative (Negative)
== END 2024-05-14 19:07 | disposition home or self-care (01) ==
PROVIDERS: Emergency Provider Registered Nurse Emergency; PCP Student in an Organized Health Care Education/Training Program
DX: R10.31 Right lower quadrant pain (principal); R11.0 Nausea
CPT/HCPCS: 80053; 81025; 83690; 87491; 87591; 99284; 74176; 81003; 81015; 83735; 85025; 87480; 87510; 87660; 99283

== ENCOUNTER 2024-06-01 11:55 | Emergency (ER) | payer MEDICAID, SELFPAY ==
[2024-06-01 12:00] VITALS: BP 108/72; PULSE 85; TEMP 36.9; O2SAT 100
[2024-06-01 12:02] VITALS: BP 108/72; PULSE 85; TEMP 36.9; O2SAT 100
--- NOTE | 2024-06-01 12:05 | W.ED.GENAD ---
Discharge Plan Disposition Patient Disposition: Eloped Condition: Good Discharge Details Clinical Impression: Abdominal pain Primary Care Provider: Reinier Kenney ED Provider: Chen Avalos Home Meds and New Rx's Prescriptions: No Action prochlorperazine maleate [Compazine] 5 mg tablet 5 mg PO BID PRN (Reason: nausea and vomiting) Qty: 30 0RF medroxyprogesterone [Depo-Provera] 150 mg/mL syringe 150 mg IM Q12W Qty: 1 4RF Rx Instructions: please allow pt to shrimp picker med earlier than 12w interval. dicyclomine 20 mg tablet 20 mg PO QID Patient Comments: take 1 tablet by mouth four times a day for 7 days ondansetron 4 mg tablet,disintegrating 4 mg PO Q6H PRN Patient Comments: DISSOLVE 1 TABLET ON TONGUE EVERY 6 HOURS NEEDED FOR NAUSEA AND VOMITING polyethylene glycol 3350 17 gram/dose powder 17 g PO DAILY PRN Patient Comments: MIX 17G (1 CAPFUL) WITH 8 OUNCES OF LIQUID AND DRINK ONCE DAILY albuterol sulfate 2.5 mg /3 mL (0.083 %) solution for nebulization 2.5 mg inhalation BID PRN Discharge Data Discharge Date/Time-TO BE ENTERED AT DEPARTURE: 06/01/24 13:54 HPI General Date/Time Provider Initiated Documentation: 06/01/24 11:58. HPI Narrative: Marilu is a 19 year old female who presents to the emergency department today for evaluation of sharp/burning epigastric pain for the last couple of days. She reports that she has a history of chronic epigastric pain since late March, is currently being followed by [facility] [place]. Abdominal pain comes and goes, but has been inconsistent for last couple of days. Denies associated fever/chills, congestion, sore throat, cough, vomiting, change in bowel or bladder function. On and off diarrhea, says this is usual for her. Denies vaginal symptoms. Past medical history is significant for chronic abdominal/pelvic pain, GERD. She does have a gastric emptying scan scheduled on 06/04/2024. Physical exam remarkable for tenderness to palpation of the epigastrium. No abdominal rigidity, guarding, distention. Normal bowel sounds. Moist mucous membrane patient is alert and oriented, in no acute distress. D/dx includes but is not limited to: Chronic abdominal pain, dehydration, electrolyte imbalance. No red flags concerning for acute surgical abdomen at this time which are reassuring history of symptoms consistent with chronic pain and reassuring physical exam. I independently interpreted the following tests: CBC, CMP, hCG, UA all unremarkable. While in the emergency department, Marilu received IV droperidol and normal saline bolus. She did elope prior to discharge, however all labs were reassuring and patient is competent to make medical decisions. Patient does have an appointment with [facility] gastroenterology in 3 days. I did discuss with her importance of following up with this to have testing performed find out etiology of pain. Related Data Home Medications ?Medication ?Instructions ?Recorded ?Confirmed medroxyprogesterone 150 mg/mL 150 mg IM Q12W #1 mL 02/10/24 06/01/24 intramuscular syringe (Depo-Provera) prochlorperazine maleate 5 mg 5 mg PO BID PRN nausea and 04/29/24 06/01/24 tablet (Compazine) vomiting #30 tabs albuterol sulfate 2.5 mg/3 mL 2.5 mg inhalation BID PRN 05/10/24 06/01/24 (0.083 %) solution for nebulization dicyclomine 20 mg tablet 20 mg PO QID 05/10/24 06/01/24 ondansetron 4 mg disintegrating 4 mg PO Q6H PRN 05/10/24 06/01/24 tablet polyethylene glycol 3350 17 17 g PO DAILY PRN 05/10/24 06/01/24 gram/dose oral powder Previous Rx's ?Medication ?Instructions ?Recorded medroxyprogesterone 150 mg/mL 150 mg IM Q12W #1 mL 02/10/24 intramuscular syringe (Depo-Provera) prochlorperazine maleate 5 mg 5 mg PO BID PRN nausea and 04/29/24 tablet (Compazine) vomiting #30 tabs Allergies Allergy/AdvReac Type Severity Reaction Status Date / Time fluconazole (From Diflucan) Allergy Mild nausea Verified 06/01/24 12:02 vomiting Penicillins Allergy hives Verified 06/01/24 12:02 General Stated Complaint: Abd Prob WINNIE: 3 Review of Systems Narrative: see HPI Exam Const General: cooperative, healthy appearing, comfortable, no acute distress, well developed and well groomed Nutritional Appearance: average body habitus Orientation: alert and oriented x3 Resp Effort & Inspection: normal respiratory effort and able to speak in complete sentences Auscultation: clear to auscultation bilaterally Cardio Rate: regular rate Rhythm: regular rhythm GI Inspection: normal to inspection, no abdominal wall ecchymosis and non-distended Palpation: soft, not firm, no guarding, not rigid and tender in the epigastrum Auscultation: normal bowel sounds Skin General skin exam: no rashes or lesions noted Psych Appearance: grossly normal Speech and Movement: speech and movement normal Affect: normal affect Thought Content: normal Insight: insight good Course Vital Signs Vital signs: Vital Signs Temperature 36.9 C 06/01/24 12:00 Pulse 85 06/01/24 12:00 Blood Pressure 108/72 06/01/24 12:00 Pulse Oximetry 100 06/01/24 12:00 Temperature 36.9 C 06/01/24 12:02 Pulse 85 06/01/24 12:02 Blood Pressure 108/72 06/01/24 12:02 Pulse Oximetry 100 06/01/24 12:02 Medical Decision Making Quality:SDOH Health Related Social Needs: No Data to Display PFSH All Active Problems (Updated 06/01/24 @ 14:14 by Chen Winkler) Nausea (Acute) Vaginal discharge (Acute) Bladder pain (Acute) Depo-Provera contraceptive status (Acute) Vaginal burning (Acute) Abnormal uterine bleeding (AUB) (Acute) 04/2023. Brown vaginal discharge while using DepoProvera. Chronic pelvic pain in female (Acute) Abdominal pain (Acute) Dyspareunia due to medical condition in female (Acute) RLQ abdominal pain (Acute) GERD (gastroesophageal reflux disease) (Chronic) refractory to PPI therapy Medical History Personal history of noncompliance with medical treatment Irritable bowel syndrome with constipation denies issues as of 02/12/23 Pelvic pain Bacterial vaginosis Yeast infection Frequent UTI Surgical History History of dental surgery No significant past surgical history Social History Smoking/Tobacco Use Status: Current every day Tobacco Type: e-cigarettes Smoking risk assessment performed?: Yes Alcohol Intake: never Drug use: Never Substance use type: does not use Household members: significant other and other Details: [facility] 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 Sexually active: Yes Do you feel safe at home: Yes Do you feel safe in your relationship?: Yes
[2024-06-01] MEDS: Droperidol 5 MG/2 ML VIAL 1.25 MG IVP (13:16)
[2024-06-01] MEDS: Normal Saline 1,000 ML 1000 ML IV (13:17)
[2024-06-01 13:26] LABS: HCT 39.7 % (36.0-46.0); HGB 13.2 g/dL (11.2-15.7); MCH 29.3 pg (27.0-33.0); MCHC 33.2 % (32.0-36.0); MCV 88 fL (80-95); MPV 10.6 fL (8.0-11.0); Platelet Count 284 10^3/uL (130-400); RBC 4.51 10^6/uL (3.93-5.22); RDW 12.4 % (11.7-14.6); RDW-SD 40.1 fL; WBC 5.76 10^3/uL (4.4-10.8)
[2024-06-01 13:39] LABS: Bilirubin Negative (Negative); Blood Negative (Negative); Clarity Sl Cloudy (Clear); Glucose Negative (Negative); Ketones Negative (Negative); Leukocyte Esterase Negative (Negative); Nitrite Negative (Negative); Urobilinogen 0.2 mg/dL (Up to 0.2); pH 6.5 (5-8)
[2024-06-01 13:41] LABS: ALT 19 U/L (14-59); AST 16 U/L (15-37); Albumin 4.5 g/dL (3.4-5.0); Alkaline Phosphatase 81 U/L (46-116); Anion Gap 7.3 mmol/L (3-11); BUN 8 mg/dL (7-18); Bilirubin, Total 0.3 mg/dL (0.2-1.0); CO2 26.7 mmol/L (21.0-32.0); CREATININE 0.7 mg/dL (0.55-1.02); Calcium 9.2 mg/dL (8.5-10.1); Chloride 106 mmol/L (98-107); Glucose 95 mg/dL (74-106); Potassium 3.8 mmol/L (3.5-5.1); Sodium 140 mmol/L (136-145); Total Protein 7.6 g/dL (6.4-8.2)
== END 2024-06-01 13:54 | disposition left against medical advice (07) ==
LOC: ER 12:37
PROVIDERS: Emergency Provider Nurse Practitioner Family; PCP Student in an Organized Health Care Education/Training Program
DX: R10.13 Epigastric pain (principal); F17.290 Nicotine dependence, other tobacco product, uncomplicated; Z53.29 Procedure and treatment not carried out because of patient's decision for other reasons
CPT/HCPCS: 80053; 81025; 85027; 96374; 99284; 81003; 99283; J1790

== ENCOUNTER 2024-06-02 10:20 | Emergency (ER) | payer MEDICAID, SELFPAY ==
[2024-06-02 10:27] VITALS: BP 106/78; PULSE 104; RESP 15; TEMP 37; O2SAT 100
[2024-06-02 10:29] VITALS: BP 106/78; PULSE 104; RESP 15; TEMP 37; O2SAT 100
--- NOTE | 2024-06-02 10:47 | W.ED.GENAD ---
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 dicyclomine 20 mg tablet 20 mg PO QID Patient Comments: take 1 tablet by mouth four times a day for 7 days polyethylene glycol 3350 17 gram/dose powder 17 g PO DAILY PRN Patient Comments: MIX 17G (1 CAPFUL) WITH 8 OUNCES OF LIQUID AND DRINK ONCE DAILY albuterol sulfate 2.5 mg /3 mL (0.083 %) solution for nebulization 2.5 mg inhalation BID PRN Discharge Instructions Additional Instructions: I recommend calling your primary care provider to schedule a follow-up appointment to discuss your abdominal pain and restless legs. Your restless legs symptoms are most likely due to the droperidol given yesterday. Please note that the symptoms should dissipate when the medication fully wears off. You may use Benadryl 25 mg every 6 hours as needed for restless legs. Please note that this may make you drowsy, so do not drive, operate heavy machinery, climb on ladders, do any other potentially dangerous activities until you see how this affects you. Please avoid caffeine, nicotine/vaping, and alcohol, as these may exacerbate restless legs. Physical movement is one of the best ways to relieve symptoms as well, walking, massage, and mental engagement/focusing on activity can also be helpful. In the future, you may use Benadryl prior to taking antinausea medications to help prevent this side effect. You may return to emergency care at any time if you are very worried and need to be rechecked again immediately HPI General Date/Time Provider Initiated Documentation: 06/02/24 10:21. HPI Narrative: Marilu is a 19 year old female who presents to the emergency department today for evaluation of legs caused by droperidol administration yesterday. She was evaluated in the emergency department yesterday for epigastric discomfort and nausea/vomiting. She received 1.25 mg IV droperidol with good improvement of symptoms. She has been able to take p.o without difficulty since then, says abdominal pain is feeling better. She has, however, had a feeling of restless legs since medication that has made it difficult for her to rest. She says that this has happened previously with Compazine. She denies other systemic symptoms, leg weakness, gait disturbance, numbness/tingling. Past medical history is significant for chronic abdominal/pelvic pain currently being evaluated by [facility]. Physical exam reassuring. Marilu is alert and oriented, no acute distress, very well appearing. Normal gait. She is twitching her legs during exam, normal ROM. History and presentation consistent with restless leg symptoms after dopamine antagonist therapy. No red flags concerning for neurovascular compromise, electrolyte imbalance (labs performed yesterday were unremarkable and patient is feeling well), or other serious etiology requiring diagnostic imaging/labs at this time. While in the emergency department, Marilu received Benadryl for home use, as she drove herself here. I did review symptomatic management with patient, including avoidance of alcohol/caffeine/nicotine, use of Benadryl, and movement to help alleviate symptoms. Reviewed discharge instructions with patient, including symptomatic management and red flags indicating need for return to emergency care. She voices agreement with plan of care. Related Data Home Medications ?Medication ?Instructions ?Recorded ?Confirmed medroxyprogesterone 150 mg/mL 150 mg IM Q12W #1 mL 02/10/24 06/02/24 intramuscular syringe (Depo-Provera) prochlorperazine maleate 5 mg 5 mg PO BID PRN nausea and 04/29/24 06/02/24 tablet (Compazine) vomiting #30 tabs albuterol sulfate 2.5 mg/3 mL 2.5 mg inhalation BID PRN 05/10/24 06/02/24 (0.083 %) solution for nebulization dicyclomine 20 mg tablet 20 mg PO QID 05/10/24 06/02/24 polyethylene glycol 3350 17 17 g PO DAILY PRN 05/10/24 06/02/24 gram/dose oral powder Previous Rx's ?Medication ?Instructions ?Recorded medroxyprogesterone 150 mg/mL 150 mg IM Q12W #1 mL 02/10/24 intramuscular syringe (Depo-Provera) prochlorperazine maleate 5 mg 5 mg PO BID PRN nausea and 04/29/24 tablet (Compazine) vomiting #30 tabs Allergies Allergy/AdvReac Type Severity Reaction Status Date / Time fluconazole (From Diflucan) Allergy Mild nausea Verified 06/02/24 10:30 vomiting Penicillins Allergy hives Verified 06/02/24 10:30 General Stated Complaint: GenMedical WINNIE: 4 Review of Systems Narrative: See HPI Exam Const General: cooperative, healthy appearing, comfortable and no acute distress Nutritional Appearance: average body habitus and well nourished Orientation: alert and oriented x3 Resp Effort & Inspection: normal respiratory effort and able to speak in complete sentences Skin General skin exam: no rashes or lesions noted Extrem General: normal to inspection, full ROM and normal gait Psych Appearance: grossly normal Mental Status: mental status grossly normal Speech and Movement: restless (leg twitching) Course Vital Signs Vital signs: Vital Signs Temperature 37.0 C 06/02/24 10:27 Pulse 104 H 06/02/24 10:27 Respiratory Rate 15 06/02/24 10:27 Blood Pressure 106/78 06/02/24 10:27 Pulse Oximetry 100 06/02/24 10:27 Temperature 37.0 C 06/02/24 10:29 Pulse 104 H 06/02/24 10:29 Respiratory Rate 15 06/02/24 10:29 Blood Pressure 106/78 06/02/24 10:29 Blood Pressure Position Sitting 06/02/24 10:29 Pulse Oximetry 100 06/02/24 10:29 Oxygen Delivery Method Room Air 06/02/24 10:29 Oxygen Flow Rate 0 06/02/24 10:29 Medical Decision Making Quality:SDOH Health Related Social Needs: No Data to Display PFSH All Active Problems (Updated 06/02/24 @ 10:47 by Chen Winkler) Restless legs (Acute) Nausea (Acute) Vaginal discharge (Acute) Bladder pain (Acute) Depo-Provera contraceptive status (Acute) Vaginal burning (Acute) Abnormal uterine bleeding (AUB) (Acute) 04/2023. Brown vaginal discharge while using DepoProvera. Chronic pelvic pain in female (Acute) Abdominal pain (Acute) Dyspareunia due to medical condition in female (Acute) RLQ abdominal pain (Acute) GERD (gastroesophageal reflux disease) (Chronic) refractory to PPI therapy Medical History Personal history of noncompliance with medical treatment Irritable bowel syndrome with constipation denies issues as of 02/12/23 Pelvic pain Bacterial vaginosis Yeast infection Frequent UTI Surgical History History of dental surgery No significant past surgical history Social History Smoking/Tobacco Use Status: Current every day Tobacco Type: e-cigarettes Smoking risk assessment performed?: Yes Alcohol Intake: never Drug use: Never Substance use type: does not use Household members: significant other and other Details: lives with [facility]. 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 Sexually active: Yes Do you feel safe at home: Yes Do you feel safe in your relationship?: Yes
[2024-06-02] MEDS: diphenhydrAMINE 25 MG CAP PO (10:59)
[2024-06-02 11:05] VITALS: PULSE 95; O2SAT 100
== END 2024-06-02 11:05 | disposition home or self-care (01) ==
PROVIDERS: Emergency Provider Nurse Practitioner Family; PCP Student in an Organized Health Care Education/Training Program
DX: G25.81 Restless legs syndrome (principal)
CPT/HCPCS: 99283

== ENCOUNTER 2024-06-03 09:21 | Emergency (ER) | payer MEDICAID, SELFPAY ==
--- NOTE | 2024-06-03 10:20 | NUR.NOTE ---
Nursing Note: Pt left without being seen. We were short staffed, 2 nurses to 15 patients. We were triaging as appropriate to most critical patient in the waiting room. Access called back and let us know that this patient left at 10:10 without being seen or triaged.
== END 2024-06-03 10:17 | disposition left against medical advice (07) ==
PROVIDERS: PCP Student in an Organized Health Care Education/Training Program
DX: Z53.21 Procedure and treatment not carried out due to patient leaving prior to being seen by health care provider (principal)

== ENCOUNTER 2024-06-03 16:05 | Emergency (ER) | payer MEDICAID, SELFPAY ==
[2024-06-03 16:14] VITALS: BP 106/72; PULSE 86; RESP 20; TEMP 36.6; O2SAT 98
[2024-06-03 16:32] VITALS: BP 106/72; PULSE 86; RESP 20; TEMP 36.6; O2SAT 98
--- NOTE | 2024-06-03 16:37 | W.ED.GENAD ---
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 dicyclomine 20 mg tablet 20 mg PO QID Patient Comments: take 1 tablet by mouth four times a day for 7 days polyethylene glycol 3350 17 gram/dose powder 17 g PO DAILY PRN Patient Comments: MIX 17G (1 CAPFUL) WITH 8 OUNCES OF LIQUID AND DRINK ONCE DAILY albuterol sulfate 2.5 mg /3 mL (0.083 %) solution for nebulization 2.5 mg inhalation BID PRN Discharge Instructions Additional Instructions: Please follow-up with [facility] tomorrow for your gastric emptying study. I encourage you to stay well-hydrated, drinking plenty of fluids throughout the day. Eat gentle foods. Stay in close contact with her gastroenterology team at [facility] to continue working up your abdominal pain. Return to emergency care if develop new severe abdominal pain that is changed from your usual, uncontrollable vomiting, or unable to hold down any fluids or food, fevers associated with abdominal pain, or if you are very worried you need to be rechecked again immediately Referrals: Reinier Kenney [Primary Care Provider] - [facility] General Date/Time Provider Initiated Documentation: 06/03/24 16:11. HPI Narrative: Marilu is a 19 year old female who presents to the emergency department today for evaluation of upper abdominal pain starting this morning. She reports that this is similar to previous episodes of pain that she had in the past, most recently 2 days ago. She reports this is accompanied by nausea. Denies associated fever/chills, recent illness such as sore throat/cough, chest pain, vomiting, change in bowel or bladder function, vaginal symptoms. She does have on and off diarrhea. Was treated with droperidol 2 days ago, but says that the restless legs was very bothersome to her. She is requesting Zofran today. She does have a gastric emptying study tomorrow. Past medical history is significant for chronic abdominal and pelvic pain. Physical exam reassuring. Marilu is alert and oriented, no acute distress, well-appearing. Abdomen soft, nondistended, mild tenderness to palpation to epigastrium. No rigidity or guarding, normoactive bowel sounds. Easy work of breathing, lung sounds clear bilaterally. No heart sounds. Moist mucous membranes. History and presentation consistent with chronic epigastric abdominal pain, patient denies any new/concerning symptoms, says it is just like previous episodes. No red flags concerning for acute surgical abdomen requiring emergent diagnostic imaging. I did discuss with her treatment options, she declines droperidol at this time because it gave her restless legs. She says that Zofran usually works well for her, Zofran IV x 2 given along with IV fluids and Toradol IV. I independently interpreted the following tests: CBC notable for mild leukopenia (WBC 3.69); CMP unremarkable. Reviewed discharge instructions with patient, including symptomatic management, importance of follow-up with [facility] for further evaluation/management of chronic abdominal pain, and red flags indicating need for return to emergency care Related Data Home Medications ?Medication ?Instructions ?Recorded ?Confirmed medroxyprogesterone 150 mg/mL 150 mg IM Q12W #1 mL 02/10/24 06/03/24 intramuscular syringe (Depo-Provera) prochlorperazine maleate 5 mg 5 mg PO BID PRN nausea and 04/29/24 06/03/24 tablet (Compazine) vomiting #30 tabs albuterol sulfate 2.5 mg/3 mL 2.5 mg inhalation BID PRN 05/10/24 06/03/24 (0.083 %) solution for nebulization dicyclomine 20 mg tablet 20 mg PO QID 05/10/24 06/03/24 polyethylene glycol 3350 17 17 g PO DAILY PRN 05/10/24 06/03/24 gram/dose oral powder Previous Rx's ?Medication ?Instructions ?Recorded medroxyprogesterone 150 mg/mL 150 mg IM Q12W #1 mL 02/10/24 intramuscular syringe (Depo-Provera) prochlorperazine maleate 5 mg 5 mg PO BID PRN nausea and 04/29/24 tablet (Compazine) vomiting #30 tabs Allergies Allergy/AdvReac Type Severity Reaction Status Date / Time fluconazole (From Diflucan) Allergy Mild nausea Verified 06/03/24 16:17 vomiting Penicillins Allergy hives Verified 06/03/24 16:17 General Stated Complaint: Abd Prob WINNIE: 3 Review of Systems Narrative: See HPI Exam Const General: cooperative, healthy appearing, comfortable, no acute distress, well developed and well groomed Nutritional Appearance: average body habitus and well nourished Orientation: alert and oriented x3 HENMT Mouth: oral mucosae normal, lip normal, tongue normal, oropharynx normal and moist mucous membranes Neck Neck: normal visual inspection Resp Effort & Inspection: normal respiratory effort and able to speak in complete sentences Auscultation: clear to auscultation bilaterally Cardio Rate: regular rate Rhythm: regular rhythm GI Inspection: normal to inspection Palpation: soft, not firm, no guarding, not rigid and tender in the epigastrum Auscultation: normal bowel sounds Skin General skin exam: no rashes or lesions noted Course Vital Signs Vital signs: Vital Signs Temperature 36.6 C 06/03/24 16:14 Pulse 86 06/03/24 16:14 Respiratory Rate 20 06/03/24 16:14 Blood Pressure 106/72 06/03/24 16:14 Pulse Oximetry 98 06/03/24 16:14 Temperature 36.6 C 06/03/24 16:32 Pulse 86 06/03/24 16:32 Respiratory Rate 20 06/03/24 16:32 Blood Pressure 106/72 06/03/24 16:32 Blood Pressure Position Sitting 06/03/24 16:32 Pulse Oximetry 98 06/03/24 16:32 Oxygen Delivery Method Room Air 06/03/24 16:32 Oxygen Flow Rate 0 06/03/24 16:32 Pain Level 6 06/03/24 16:32 Medical Decision Making Quality:SDOH Health Related Social Needs: No Data to Display PFSH All Active Problems (Updated 06/03/24 @ 17:18 by Chen Winkler) Restless legs (Acute) Nausea (Acute) Vaginal discharge (Acute) Bladder pain (Acute) Depo-Provera contraceptive status (Acute) Vaginal burning (Acute) Abnormal uterine bleeding (AUB) (Acute) 04/2023. Brown vaginal discharge while using DepoProvera. Chronic pelvic pain in female (Acute) Abdominal pain (Acute) Dyspareunia due to medical condition in female (Acute) RLQ abdominal pain (Acute) GERD (gastroesophageal reflux disease) (Chronic) refractory to PPI therapy Medical History Personal history of noncompliance with medical treatment Irritable bowel syndrome with constipation denies issues as of 02/12/23 Pelvic pain Bacterial vaginosis Yeast infection Frequent UTI Surgical History History of dental surgery No significant past surgical history Social History Smoking/Tobacco Use Status: Current every day Tobacco Type: e-cigarettes Smoking risk assessment performed?: Yes Alcohol Intake: never Drug use: Never Substance use type: does not use Household members: significant other and other Details: lives with [facility]. 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 Sexually active: Yes Do you feel safe at home: Yes Do you feel safe in your relationship?: Yes
[2024-06-03] MEDS: Normal Saline 500 ML 1000 ML IV (16:50)
[2024-06-03 16:56] LABS: Abs Immature Grans 0.01 10^3/uL (0.0-0.06); Absolute Basophil Count 0.04 10^3/uL (0.0-0.2); Absolute Eosinophil Count 0.14 10^3/uL (0.0-0.7); Absolute Lymphocyte Count 1.15 10^3/uL (1.2-3.4); Absolute Monocyte Count 0.42 10^3/uL (0.1-0.8); Absolute Neutrophil Count 1.93 10^3/uL (1.2-6.7); Basophils % 1.1 %; Eosinophils % 3.8 %; HCT 37.3 % (36.0-46.0); HGB 12.3 g/dL (11.2-15.7); Immature Grans % 0.3 %; Lymphocytes % 31.2 %; MCH 29.1 pg (27.0-33.0); MCV 88 fL (80-95); MPV 10.4 fL (8.0-11.0); Monocytes % 11.4 %; Neutrophils % 52.2 %; Platelet Count 265 10^3/uL (130-400); RBC 4.22 10^6/uL (3.93-5.22); RDW 12.3 % (11.7-14.6); RDW-SD 39.7 fL; WBC 3.69 10^3/uL (4.4-10.8)
[2024-06-03] MEDS: Ketorolac 15 MG/ML VIAL (16:57)
[2024-06-03] MEDS: Ondansetron 4 MG/2 ML VIAL IVP ×2 (16:58→17:32)
[2024-06-03 17:09] LABS: ALT 17 U/L (14-59); AST 14 U/L (15-37); Albumin 4.1 g/dL (3.4-5.0); Alkaline Phosphatase 77 U/L (46-116); Anion Gap 7.7 mmol/L (3-11); BUN 13 mg/dL (7-18); Bilirubin, Total 0.3 mg/dL (0.2-1.0); CO2 28.3 mmol/L (21.0-32.0); CREATININE 0.7 mg/dL (0.55-1.02); Calcium 8.8 mg/dL (8.5-10.1); Chloride 107 mmol/L (98-107); Glucose 99 mg/dL (74-106); Magnesium 2.4 mg/dL (1.8-2.4); Potassium 3.8 mmol/L (3.5-5.1); Sodium 143 mmol/L (136-145)
[2024-06-03] MEDS: Normal Saline Flush 10 ML SYR IVP (17:32)
[2024-06-03 17:43] VITALS: PULSE 85; TEMP 36.6; O2SAT 100
== END 2024-06-03 17:41 | disposition home or self-care (01) ==
PROVIDERS: Emergency Provider Nurse Practitioner Family; PCP Student in an Organized Health Care Education/Training Program
DX: R10.10 Upper abdominal pain, unspecified (principal); F17.290 Nicotine dependence, other tobacco product, uncomplicated
CPT/HCPCS: 36415; 80053; 81025; 96374; 96375; 99284; 83735; 85025; J1885; J2405

== ENCOUNTER 2024-06-09 11:18 | Emergency (ER) | payer MEDICAID, SELFPAY ==
[2024-06-09 11:33] VITALS: BP 130/84; PULSE 108; RESP 20; TEMP 36.7; O2SAT 98
[2024-06-09] MEDS: MYLANTA 30 ML, LIDOCAINE 2% VISCOUS UD 15 ML PO (11:59)
[2024-06-09 12:12] VITALS: BP 130/84; PULSE 108; RESP 20; TEMP 36.7; O2SAT 98
--- NOTE | 2024-06-09 12:28 | NUR.NOTE ---
pt refused all meds Nursing Note:
--- NOTE | 2024-06-09 14:18 | ED.GENADUL_ITS ---
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 dicyclomine 20 mg tablet 20 mg PO QID Patient Comments: take 1 tablet by mouth four times a day for 7 days polyethylene glycol 3350 17 gram/dose powder 17 g PO DAILY PRN Patient Comments: MIX 17G (1 CAPFUL) WITH 8 OUNCES OF LIQUID AND DRINK ONCE DAILY albuterol sulfate 2.5 mg /3 mL (0.083 %) solution for nebulization 2.5 mg inhalation BID PRN Discharge Data Discharge Date/Time-TO BE ENTERED AT DEPARTURE: 06/09/24 12:17 HPI General Date/Time Provider Initiated Documentation: 06/09/24 11:46 . HPI Narrative: This is a 19-year-old female with a past medical history of chronic pelvic and abdominal pain, which has had multiple work-ups, multiple evaluations with imaging, and various follow-ups with surgery, GI, and OB, with no clear definitive etiology at this time. She has a family past medical history of endometriosis, but will be feels that this is unlikely given her current situation. Surgery/GI are still pending colonoscopy and endoscopy for further diagnosis and assessment. She has had multiple visits to the ED. Emergency department and [facility] emergency department without any solution or cause to her symptoms. She presents today for generalized mild epigastric achiness that starts in the epigastric region. She took Bentyl this morning and Tums without any significant improvement. No vomiting or diarrhea. No fever or chills. No vaginal discharge. No other complaints at this time. Related Data Home Medications ?Medication ?Instructions ?Recorded ?Confirmed medroxyprogesterone 150 mg/mL 150 mg IM Q12W #1 mL 02/10/24 06/09/24 intramuscular syringe (Depo-Provera) prochlorperazine maleate 5 mg 5 mg PO BID PRN nausea and 04/29/24 06/09/24 tablet (Compazine) vomiting #30 tabs albuterol sulfate 2.5 mg/3 mL 2.5 mg inhalation BID PRN 05/10/24 06/09/24 (0.083 %) solution for nebulization dicyclomine 20 mg tablet 20 mg PO QID 05/10/24 06/09/24 polyethylene glycol 3350 17 17 g PO DAILY PRN 05/10/24 06/09/24 gram/dose oral powder Previous Rx's ?Medication ?Instructions ?Recorded medroxyprogesterone 150 mg/mL 150 mg IM Q12W #1 mL 02/10/24 intramuscular syringe (Depo-Provera) prochlorperazine maleate 5 mg 5 mg PO BID PRN nausea and 04/29/24 tablet (Compazine) vomiting #30 tabs Allergies Allergy/AdvReac Type Severity Reaction Status Date / Time fluconazole (From Diflucan) Allergy Mild nausea Verified 06/09/24 11:35 vomiting Penicillins Allergy hives Verified 06/09/24 11:35 General Stated Complaint: Abd Prob WINNIE: 3 Exam Narrative Exam Narrative: 1.Const: Well-nourished, Well-developed, appearing stated age 2.Eyes: PERRL, no conjunctival injection, and symmetrical lids. 3.ENT: Atraumatic external nose and ears. Moist MM. Neck: Symmetric, trachea midline, No thyromegaly. 4.CVS: +S1/S2, Peripheral pulses 2+ and equal in all extremities. Brisk capillary refill in all extremities. 5.RESP: Unlabored respiratory effort. Clear to auscultation bilaterally. No wheezes rales or rhonchi 6.GI: Soft, nondistended, no significant guarding or rebound. No focal tenderness. 7.MSK: Normocephalic/Atraumatic, Extremities w/o deformity or ttp No cyanosis or clubbing, Normal movement of all extremities 8.Skin: Warm, Dry. No rashes or lesions. 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 Sensation grossly intact, no focal neurologic deficits. 10.Psych: (AAO) x3. Appropriate mood and affect Course Vital Signs Vital signs: Vital Signs Temperature 36.7 C 06/09/24 11:33 Pulse 108 H 06/09/24 11:33 Respiratory Rate 20 06/09/24 11:33 Blood Pressure 130/84 06/09/24 11:33 Pulse Oximetry 98 06/09/24 11:33 Temperature 36.7 C 06/09/24 12:12 Pulse 108 H 06/09/24 12:12 Respiratory Rate 20 06/09/24 12:12 Blood Pressure 130/84 06/09/24 12:12 Blood Pressure Position Sitting 06/09/24 12:12 Pulse Oximetry 98 06/09/24 12:12 Oxygen Delivery Method Room Air 06/09/24 12:12 Oxygen Flow Rate 0 06/09/24 12:12 Medical Decision Making This is a 19-year-old female with a past medical history of chronic pelvic and abdominal pain, which has had multiple work-ups, multiple evaluations with imaging, and various follow-ups with surgery, GI, and OB, with no clear definitive etiology at this time. She has a family past medical history of endometriosis, but will be feels that this is unlikely given her current situation. Surgery/GI are still pending colonoscopy and endoscopy for further diagnosis and assessment. She has had multiple visits to the ED. Emergency department and [facility] emergency department without any solution or cause to her symptoms. She presents today for generalized mild epigastric achiness that starts in the epigastric region. She took Bentyl this morning and Tums without any significant improvement. No vomiting or diarrhea. No fever or chills. No vaginal discharge. No other complaints at this time. Exam demonstrates no focal tenderness, no guarding or rebound, no evidence of a surgical abdomen. Concern for gastric irritation. No indication for emergent CT imaging. Will give additional dose of Bentyl, Carafate, recommend GI cocktail and Protonix. Immediately after I saw the patient, we walked her back to the reading room as there were no rooms available, and security then came out a few moments later and said that the patient left. She had no anger during this episode, no signs of frustration. Uncertain as to why she left. Patient eloped. Quality:SDOH Health Related Social Needs: No Data to Display PFSH All Active Problems (Updated 06/09/24 @ 17:26 by Dima Manzanares DO) Abdominal pain (Acute) Restless legs (Acute) Nausea (Acute) Vaginal discharge (Acute) Bladder pain (Acute) Depo-Provera contraceptive status (Acute) Vaginal burning (Acute) Abnormal uterine bleeding (AUB) (Acute) 04/2023. Brown vaginal discharge while using DepoProvera. Chronic pelvic pain in female (Acute) Abdominal pain (Acute) Dyspareunia due to medical condition in female (Acute) RLQ abdominal pain (Acute) GERD (gastroesophageal reflux disease) (Chronic) refractory to PPI therapy Medical History Personal history of noncompliance with medical treatment Irritable bowel syndrome with constipation denies issues as of 02/12/23 Pelvic pain Bacterial vaginosis Yeast infection Frequent UTI Surgical History History of dental surgery No significant past surgical history Social History Smoking/Tobacco Use Status: Current every day Tobacco Type: e-cigarettes Smoking risk assessment performed?: Yes Alcohol Intake: never Drug use: Never Substance use type: does not use Household members: significant other and other Details: lives with Cesario Saleem. 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 Sexually active: Yes Do you feel safe at home: Yes Do you feel safe in your relationship?: Yes
== END 2024-06-09 12:17 | disposition left against medical advice (07) ==
PROVIDERS: Emergency Provider Student in an Organized Health Care Education/Training Program; PCP Student in an Organized Health Care Education/Training Program
DX: R10.13 Epigastric pain (principal); Z53.29 Procedure and treatment not carried out because of patient's decision for other reasons
CPT/HCPCS: 99282

== ENCOUNTER 2024-06-10 11:22 | Emergency (ER) | payer MEDICAID, SELFPAY ==
[2024-06-10 11:24] VITALS: BP 96/69; PULSE 91; RESP 16; TEMP 36; O2SAT 98
[2024-06-10 11:26] VITALS: BP 96/69; PULSE 91; RESP 16; TEMP 36; O2SAT 98
--- NOTE | 2024-06-10 11:32 | ED.GENADUL_ITS ---
Discharge Plan Disposition Patient Disposition: Home Discharge Details Clinical Impression: Abdominal pain, Nausea Primary Care Provider: Reinier Kenney ED Provider: Chen Avalos Home Meds and New Rx's Prescriptions: No Action prochlorperazine maleate [Compazine] 5 mg tablet 5 mg PO BID PRN (Reason: nausea and vomiting) Qty: 30 0RF medroxyprogesterone [Depo-Provera] 150 mg/mL syringe 150 mg IM Q12W Qty: 1 4RF Rx Instructions: please allow pt to pick remover med earlier than 12w interval. polyethylene glycol 3350 17 gram/dose powder 17 g PO DAILY PRN Patient Comments: MIX 17G (1 CAPFUL) WITH 8 OUNCES OF LIQUID AND DRINK ONCE DAILY albuterol sulfate 2.5 mg /3 mL (0.083 %) solution for nebulization 2.5 mg inhalation BID PRN Discharge Instructions Additional Instructions: Please follow-up with your team at [facility] as discussed for further evaluation and testing. Stay well-hydrated at home, drinking plenty of fluid throughout the day. Continue to take your medications as prescribed Return to emergency care anytime if you develop new/changed severe abdominal pain, uncontrollable vomiting, significant blood in your stool, episodes of passing out, or if you are very worried and need to be rechecked again immediately Referrals: Reinier Kenney [Primary Care Provider] - Discharge Data Discharge Date/Time-TO BE ENTERED AT DEPARTURE: 06/10/24 12:26 HPI General Date/Time Provider Initiated Documentation: 06/10/24 11:28 . HPI Narrative: Marilu is a 19 year old female who presents to the emergency department today for evaluation of epigastric pain with nausea. She says this is consistent with her chronic pain and nausea, yesterday came in because she had an episode of pain and nausea did not improve with Bentyl, left before treatment provided. Says that she felt better in the afternoon, last night the pain started again. She has had nausea, but no vomiting. Has had diarrhea, scant amount of blood with wiping yesterday, less today. Denies fever/chills, congestion, sore throat, cough, chest pain, dizziness, palpitations, vomiting, change in bowel or bladder function, vaginal symptoms, easy bruising, epistaxis, other bleeding. She did take Bentyl this morning without improvement of symptoms. Past medical history is significant for chronic epigastric/pelvic pain, currently being worked up by [facility]. She has to reschedule a gastric emptying study that was moved due to provider not being available. Physical exam reassuring. Marilu is alert and oriented, no acute distress. Slightly tacky mucous membranes. Easy work of breathing, lung sounds clear bilaterally. Normal heart sounds. Abdomen soft, nondistended, nontender to palpation with normoactive bowel sounds. Moving all extremities equally. History and presentation consistent with chronic epigastric pain, no red flags concerning for acute intra-abdominal process. No concerning features to scant amount of blood in stool, will obtain labs to rule out anemia or thrombocytopenia. I independently interpreted the following tests: CBC, BMP, hCG all reassuring. While in the emergency department, Marilu received Toradol and IV Zofran with good relief of symptoms. Marilu feels good enough to return home, will take p.o. at home and follow-up with [facility] as discussed. Reviewed discharge instructions with patient, including symptomatic management and red flags indicating need for return to emergency care. She voices agreement with plan of care Related Data Home Medications ?Medication ?Instructions ?Recorded ?Confirmed medroxyprogesterone 150 mg/mL 150 mg IM Q12W #1 mL 02/10/24 06/10/24 intramuscular syringe (Depo-Provera) prochlorperazine maleate 5 mg 5 mg PO BID PRN nausea and 04/29/24 06/10/24 tablet (Compazine) vomiting #30 tabs albuterol sulfate 2.5 mg/3 mL 2.5 mg inhalation BID PRN 05/10/24 06/10/24 (0.083 %) solution for nebulization polyethylene glycol 3350 17 17 g PO DAILY PRN 05/10/24 06/10/24 gram/dose oral powder Previous Rx's ?Medication ?Instructions ?Recorded medroxyprogesterone 150 mg/mL 150 mg IM Q12W #1 mL 02/10/24 intramuscular syringe (Depo-Provera) prochlorperazine maleate 5 mg 5 mg PO BID PRN nausea and 04/29/24 tablet (Compazine) vomiting #30 tabs Allergies Allergy/AdvReac Type Severity Reaction Status Date / Time fluconazole (From Diflucan) Allergy Mild nausea Verified 06/10/24 11:26 vomiting Penicillins Allergy hives Verified 06/10/24 11:26 General Stated Complaint: Abd Prob WINNIE: 3 Review of Systems Narrative: See HPI Exam Const General: cooperative, healthy appearing, comfortable, no acute distress, well developed and well groomed Nutritional Appearance: average body habitus Orientation: alert and oriented x3 HENMT Head: normal to inspection General nose exam: external nose normal Mouth: moist mucous membranes Neck Neck: normal visual inspection Resp Effort & Inspection: normal respiratory effort and able to speak in complete sentences Auscultation: clear to auscultation bilaterally Cardio Jugular venous pressure: no JVD Rate: regular rate Rhythm: regular rhythm GI Inspection: normal to inspection and non-distended Palpation: soft, not firm, no guarding, not rigid and nontender Course Vital Signs Vital signs: Vital Signs Temperature 36.0 C L 06/10/24 11:24 Pulse 91 H 06/10/24 11:24 Respiratory Rate 16 06/10/24 11:24 Blood Pressure 96/69 L 06/10/24 11:24 Pulse Oximetry 98 06/10/24 11:24 Temperature 36.0 C L 06/10/24 11:26 Temperature Source Tympanic 06/10/24 11:26 Pulse 91 H 06/10/24 11:26 Respiratory Rate 16 06/10/24 11:26 Blood Pressure 96/69 L 06/10/24 11:26 Pulse Oximetry 98 06/10/24 11:26 Pain Level 7 06/10/24 11:26 Medical Decision Making Quality:SDOH Health Related Social Needs: No Data to Display PFSH All Active Problems (Updated 06/10/24 @ 12:24 by Chen Winkler) Abdominal pain (Acute) Restless legs (Acute) Nausea (Acute) Vaginal discharge (Acute) Bladder pain (Acute) Depo-Provera contraceptive status (Acute) Vaginal burning (Acute) Abnormal uterine bleeding (AUB) (Acute) 04/2023. Brown vaginal discharge while using DepoProvera. Chronic pelvic pain in female (Acute) Abdominal pain (Acute) Dyspareunia due to medical condition in female (Acute) RLQ abdominal pain (Acute) GERD (gastroesophageal reflux disease) (Chronic) refractory to PPI therapy Medical History Personal history of noncompliance with medical treatment Irritable bowel syndrome with constipation denies issues as of 02/12/23 Pelvic pain Bacterial vaginosis Yeast infection Frequent UTI Surgical History History of dental surgery No significant past surgical history Social History Smoking/Tobacco Use Status: Current every day Tobacco Type: e-cigarettes Smoking risk assessment performed?: Yes Alcohol Intake: never Drug use: Never Substance use type: does not use Household members: significant other and other Details: lives with Cesario Saleem. 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 Sexually active: Yes Do you feel safe at home: Yes Do you feel safe in your relationship?: Yes
[2024-06-10 11:54] LABS: Abs Immature Grans 0.01 10^3/uL (0.0-0.06); Absolute Basophil Count 0.04 10^3/uL (0.0-0.2); Absolute Eosinophil Count 0.16 10^3/uL (0.0-0.7); Absolute Lymphocyte Count 1.15 10^3/uL (1.2-3.4); Absolute Monocyte Count 0.38 10^3/uL (0.1-0.8); Absolute Neutrophil Count 1.98 10^3/uL (1.2-6.7); Basophils % 1.1 %; Eosinophils % 4.3 %; HGB 13.6 g/dL (11.2-15.7); Immature Grans % 0.3 %; Lymphocytes % 30.9 %; MCH 29.3 pg (27.0-33.0); MCHC 33.2 % (32.0-36.0); MCV 88 fL (80-95); MPV 10.5 fL (8.0-11.0); Monocytes % 10.2 %; Neutrophils % 53.2 %; Platelet Count 280 10^3/uL (130-400); RBC 4.64 10^6/uL (3.93-5.22); RDW 12.1 % (11.7-14.6); RDW-SD 39.5 fL; WBC 3.72 10^3/uL (4.4-10.8)
[2024-06-10] MEDS: Ondansetron 4 MG/2 ML VIAL IVP (12:01)
[2024-06-10] MEDS: Ketorolac 15 MG/ML VIAL IVP (12:01)
[2024-06-10] MEDS: Normal Saline Flush 10 ML SYR IVP (12:01)
[2024-06-10] MEDS: FAMOTIDINE 20 MG/50 ML BAG 200 MG IV (12:02)
[2024-06-10 12:03] LABS: Anion Gap 7.4 mmol/L (3-11); BUN 8 mg/dL (7-18); CO2 27.6 mmol/L (21.0-32.0); CREATININE 0.6 mg/dL (0.55-1.02); Calcium 9.4 mg/dL (8.5-10.1); Chloride 107 mmol/L (98-107); Glucose 92 mg/dL (74-106); Potassium 3.9 mmol/L (3.5-5.1); Sodium 142 mmol/L (136-145)
[2024-06-10 12:22] LABS: HCG Qual (Serum) Negative
[2024-06-10 12:26] VITALS: BP 100/66; PULSE 84; RESP 12; O2SAT 100
== END 2024-06-10 12:26 | disposition home or self-care (01) ==
PROVIDERS: Emergency Provider Nurse Practitioner Family; PCP Student in an Organized Health Care Education/Training Program
DX: R10.13 Epigastric pain (principal); R11.0 Nausea; F17.290 Nicotine dependence, other tobacco product, uncomplicated
CPT/HCPCS: 36415; 80048; 81025; 96374; 96375; 99284; 84703; 85025; J1885; J2405

== ENCOUNTER 2024-06-13 10:08 | Emergency (ER) | payer MEDICAID, SELFPAY ==
--- NOTE | 2024-06-13 10:15 | ED.GENADUL_ITS ---
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 sumatriptan succinate 50 mg tablet 50 mg PO ONCE Patient Comments: take 1 tablet by mouth if needed AT ONSET OF MIGRAINE DIRECTED polyethylene glycol 3350 17 gram/dose powder 17 g PO DAILY PRN Patient Comments: MIX 17G (1 CAPFUL) WITH 8 OUNCES OF LIQUID AND DRINK ONCE DAILY albuterol sulfate 2.5 mg /3 mL (0.083 %) solution for nebulization 2.5 mg inhalation BID PRN Discontinued prochlorperazine maleate [Compazine] 5 mg tablet 5 mg PO BID PRN (Reason: nausea and vomiting) Qty: 30 0RF Discharge Instructions Instructions: How to Keep Track of Your Headaches Additional Instructions: You are seen in the emergency department for your headache. Your exam was reassuring. As we discussed if develop fevers chills nausea vomiting please return to the emergency department. Please discontinue taking your prochlorperazine also called Compazine in favor of this nausea medication you have received in the emergency department. For your headaches if the sumatriptan causes you nauseousness please take this metoclopramide instead. As we discussed if you develop vomiting that does not stop if you develop any weakness or if you develop any fevers please return to the emergency department. HPI General Date/Time Provider Initiated Documentation: 06/13/24 10:15 . HPI Narrative: MDM This is a quite well-appearing mildly tachycardic but normothermic 19-year-old female with headache and reassuring exam for which patient will receive treatment with IM ketorolac and outpatient metoclopramide given that she is working today and discharge with empiric trial of expectant outpatient management. No pain out of proportion to suggest necrotizing soft tissue infection. No nuchal rigidity to suggest meningitis. Good range of motion in neck so I am not concerned for retropharyngeal abscess. Uvula midline so I am not concerned for peritonsillar abscess. No history of polymyalgia rheumatica so I am not suspicious for giant cell arteritis. No generator exposure to suggest carbon monoxide toxicity. No fevers to suggest viral URI. No significant posterior oropharynx to suggest strep pharyngitis. I discussed with the patient that I am not certain whether or not the sumatriptan was causing her nausea or if her migraine headache was the culprit. She has had headaches for less than 1 week. It is unclear whether or not she actually has a history of migraine headaches. She has never seen a neurologist. Her headache was not sudden in onset to suggest subarachnoid hemorrhage so I do not feel the patient required a lumbar puncture. Patient is not recently to suggest increased risk for cerebral venous sinus thrombosis. No tonic-clonic activity to suggest seizure so no indication for EEG. 11:42 AM Patient felt improved following IV ketorolac. Her heart rate normalized. She was offered water but declined. She was not vomiting in the emergency department. She understood her return indications and was discharged with empiric trial of expectant outpatient management. HPI This is a 19-year-old female up-to-date with immunizations on outpatient methyl progesterone arrived emerged part via private vehicle in the setting of headache. Patient reports that she has intermittently had a headache for the past 2 days. She has attempted treatment with acetaminophen and ibuprofen. She last took ibuprofen last night and took 1 g of acetaminophen approximately 1 hour ago. She has not taken any falls. No recent URI symptoms or fevers. She received that outpatient prescription for sumatriptan. She occasionally vapes tobacco but denies routine ethanol or illicits. She feels that the sumatriptan made her nervous. She has not had any vomiting but occasionally feels nauseous. No chiropractic manipulation. No exposure to any generators. Exam General: Well-appearing in no acute distress speaking in complete sentences. Head: Normocephalic, atraumatic. Eye: Extraocular eye movements intact. No conjunctival injection. No scleral icterus. Ear, nose, mouth, throat: Grossly normal inspection. Normal voice, handling secretions normally. Uvula midline. No significant posterior oropharynx erythema. Neck: Trachea midline. Cardiovascular: Well-perfused distal extremities. Respiratory: Nonlabored respiration. Gastrointestinal: Nondistended abdomen. Musculoskeletal: No edema. Moving all 4 extremities spontaneously. Skin: Normal for age and race, grossly normal temperature and turgor. No acute rash. Neurologic: Alert and appropriate, no apparent acute deficits. Cranial nerves II through XII intact grossly. 5-5 bilateral upper and lower extremity stre ngth. Psychiatric: Mood and manner are appropriate. Grooming and personal hygiene are appropriate. Related Data Home Medications ?Medication ?Instructions ?Recorded ?Confirmed medroxyprogesterone 150 mg/mL 150 mg IM Q12W #1 mL 02/10/24 06/13/24 intramuscular syringe (Depo-Provera) albuterol sulfate 2.5 mg/3 mL 2.5 mg inhalation BID PRN 05/10/24 06/13/24 (0.083 %) solution for nebulization polyethylene glycol 3350 17 17 g PO DAILY PRN 05/10/24 06/13/24 gram/dose oral powder metoclopramide HCl 5 mg tablet 5 mg PO QAC #14 tabs 06/13/24 sumatriptan succinate 50 mg tablet 50 mg PO ONCE 06/13/24 06/13/24 Previous Rx's ?Medication ?Instructions ?Recorded medroxyprogesterone 150 mg/mL 150 mg IM Q12W #1 mL 02/10/24 intramuscular syringe (Depo-Provera) metoclopramide HCl 5 mg tablet 5 mg PO QAC #14 tabs 06/13/24 Allergies Allergy/AdvReac Type Severity Reaction Status Date / Time fluconazole (From Diflucan) Allergy Mild nausea Verified 06/13/24 10:23 vomiting Penicillins Allergy hives Verified 06/13/24 10:23 General WINNIE: 3 Medical Decision Making Quality:SDOH Health Related Social Needs: No Data to Display PFSH All Active Problems (Updated 06/13/24 @ 10:47 by Gilmer Nur MD) Headache, unspecified (Acute) Abdominal pain (Acute) Restless legs (Acute) Nausea (Acute) Vaginal discharge (Acute) Bladder pain (Acute) Depo-Provera contraceptive status (Acute) Vaginal burning (Acute) Abnormal uterine bleeding (AUB) (Acute) 04/2023. Brown vaginal discharge while using DepoProvera. Chronic pelvic pain in female (Acute) Abdominal pain (Acute) Dyspareunia due to medical condition in female (Acute) RLQ abdominal pain (Acute) GERD (gastroesophageal reflux disease) (Chronic) refractory to PPI therapy Medical History Personal history of noncompliance with medical treatment Irritable bowel syndrome with constipation denies issues as of 02/12/23 Pelvic pain Bacterial vaginosis Yeast infection Frequent UTI Surgical History History of dental surgery No significant past surgical history Social History Smoking/Tobacco Use Status: Current every day Tobacco Type: e-cigarettes Smoking risk assessment performed?: Yes Alcohol Intake: never Drug use: Never Substance use type: does not use Household members: significant other and other Details[facility] 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 Sexually active: Yes Do you feel safe at home: Yes Do you feel safe in your relationship?: Yes
[2024-06-13 10:18] VITALS: BP 103/71; PULSE 101; RESP 16; TEMP 36.6; O2SAT 98
[2024-06-13 10:23] VITALS: BP 103/71; PULSE 101; RESP 16; TEMP 36.6
[2024-06-13] MEDS: Ondansetron O.D.T. 4 MG TABEF PO (10:54)
[2024-06-13] MEDS: Ketorolac 15 MG/ML VIAL IM (10:55)
[2024-06-13] MEDS: Ondansetron O.D.T. 4 MG TABEF, 3 TABS/BTL PO (10:55)
[2024-06-13] MEDS: Dexamethasone 4 MG TAB 8 MG PO (10:55)
[2024-06-13 10:56] VITALS: PULSE 102
[2024-06-13 11:13] VITALS: PULSE 101
[2024-06-13 11:41] VITALS: PULSE 99
== END 2024-06-13 11:51 | disposition home or self-care (01) ==
PROVIDERS: Emergency Provider Emergency Medicine; PCP Student in an Organized Health Care Education/Training Program
DX: R51.9 Headache, unspecified (principal)
CPT/HCPCS: 99283; 99284; 96372; J1885; J8540

== ENCOUNTER 2024-06-15 07:12 | Emergency (ER) | payer MEDICAID, SELFPAY ==
[2024-06-15 07:14] VITALS: BP 98/56; PULSE 79; RESP 16; TEMP 37.1; O2SAT 100
--- NOTE | 2024-06-15 07:17 | W.ED.GENAD ---
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 sumatriptan succinate 50 mg tablet 50 mg PO ONCE Patient Comments: take 1 tablet by mouth if needed AT ONSET OF MIGRAINE DIRECTED metoclopramide HCl 5 mg tablet 5 mg PO QAC Qty: 14 0RF Rx Instructions: administer 30 minutes before meals polyethylene glycol 3350 17 gram/dose powder 17 g PO DAILY PRN Patient Comments: MIX 17G (1 CAPFUL) WITH 8 OUNCES OF LIQUID AND DRINK ONCE DAILY albuterol sulfate 2.5 mg /3 mL (0.083 %) solution for nebulization 2.5 mg inhalation BID PRN Discharge Instructions Instructions: Headache, Adult ED Additional Instructions: You were seen in the emergency department for your headache. Your exam was reassuring. As we discussed if develop fevers chills nausea vomiting please return to the emergency department. Please discontinue taking your prochlorperazine also called Compazine in favor of this nausea medication you have received in the emergency department. For your headaches if the sumatriptan causes you nauseousness please take this metoclopramide instead. As we discussed if you develop vomiting that does not stop if you develop any weakness or if you develop any fevers please return to the emergency department. Please follow-up with your primary care provider later today. Discharge Data Discharge Date/Time-TO BE ENTERED AT DEPARTURE: 06/15/24 09:24 HPI General Date/Time Provider Initiated Documentation: 06/15/24 07:17. HPI Narrative: MDM This is a quite well-appearing normothermic and not tachycardic 19-year-old female with headache and reassuring exam for which patient will receive treatment with IV ketorolac acetaminophen and assessment of electrolytes given vomiting. No pain out of proportion to suggest necrotizing soft tissue infection. No nuchal rigidity to suggest meningitis. Good range of motion in neck so I am not concerned for retropharyngeal abscess. Uvula midline so I am not concerned for peritonsillar abscess. No history of polymyalgia rheumatica so I am not suspicious for giant cell arteritis. No generator exposure to suggest carbon monoxide toxicity. No fevers to suggest viral URI. Her headache was not sudden in onset to suggest subarachnoid hemorrhage so I do not feel the patient required a lumbar puncture. Patient is not recently to suggest increased risk for cerebral venous sinus thrombosis. No tonic-clonic activity to suggest seizure so no indication for EEG. Patient is not markedly hypertensive to suggest posterior reversible encephalopathy syndrome syndrome nor she altered. No significant posterior oropharynx to suggest strep pharyngitis. Given vomiting will obtain electrolytes and provide proper cc IV fluid along with ketorolac and acetaminophen. 10:27 AM Patient felt improved in the emergency department. She was nontachycardic. She did not vomit. She had reassuring electrolytes with no CRISOT and no anion gap. She has primary care follow-up this morning she says at 10 AM. We discussed that she should return to the ED if she develops any weakness in her extremities any fevers any vomiting that does not stop or any syncope. She understood her return indications and was discharged with empiric trial of expectant outpatient management. HPI This is a 19-year-old female who to the emergency department via private vehicle in setting of headache. Patient was seen several days ago with similar symptoms. She said that it improved slightly on her outpatient sumatriptan. She has not taken anything yet this morning for pain. She denies any recent falls chiropractic manipulation and any recent exposure to generators. She is not having any abdominal pain. She has been able to go to work. Exam General: Well-appearing in no acute distress speaking in complete sentences. Head: Normocephalic, atraumatic. Eye:[Pupils equal, round reactive to light.] Extraocular eye movements intact. No conjunctival injection. No scleral icterus. Ear, nose, mouth, throat: Grossly normal inspection. Normal voice, handling secretions normally. No significant posterior oropharynx erythema. Uvula midline. Neck: Trachea midline. No nuchal rigidity. Cardiovascular: Well-perfused distal extremities. Respiratory: Nonlabored respiration. Clear lungs bilaterally. Gastrointestinal: Nondistended abdomen. Musculoskeletal: No edema. Moving all 4 extremities spontaneously. Skin: Normal for age and race, grossly normal temperature and turgor. No acute rash. Neurologic: Cranial nerves II through XII intact grossly. 5 5 bilateral upper and lower extremity strength. Psychiatric: Mood and manner are appropriate. Grooming and personal hygiene are appropriate. Related Data Home Medications ?Medication ?Instructions ?Recorded ?Confirmed medroxyprogesterone 150 mg/mL 150 mg IM Q12W #1 mL 02/10/24 06/15/24 intramuscular syringe (Depo-Provera) albuterol sulfate 2.5 mg/3 mL 2.5 mg inhalation BID PRN 05/10/24 06/15/24 (0.083 %) solution for nebulization polyethylene glycol 3350 17 17 g PO DAILY PRN 05/10/24 06/15/24 gram/dose oral powder metoclopramide HCl 5 mg tablet 5 mg PO QAC #14 tabs 06/13/24 06/15/24 sumatriptan succinate 50 mg tablet 50 mg PO ONCE 06/13/24 06/15/24 Previous Rx's ?Medication ?Instructions ?Recorded medroxyprogesterone 150 mg/mL 150 mg IM Q12W #1 mL 02/10/24 intramuscular syringe (Depo-Provera) metoclopramide HCl 5 mg tablet 5 mg PO QAC #14 tabs 06/13/24 Allergies Allergy/AdvReac Type Severity Reaction Status Date / Time fluconazole (From Diflucan) Allergy Mild nausea Verified 06/15/24 07:17 vomiting Penicillins Allergy hives Verified 06/15/24 07:17 General Stated Complaint: Headache WINNIE: 4 Course Vital Signs Vital signs: Vital Signs Temperature 37.1 C 06/15/24 07:14 Pulse 79 06/15/24 07:14 Respiratory Rate 16 06/15/24 07:14 Blood Pressure 98/56 L 06/15/24 07:14 Pulse Oximetry 100 06/15/24 07:14 Temperature 37.1 C 06/15/24 07:14 Temperature Source Oral 06/15/24 07:14 Pulse 79 06/15/24 07:14 Respiratory Rate 16 06/15/24 07:14 Blood Pressure 98/56 L 06/15/24 07:14 Blood Pressure Position Sitting 06/15/24 07:14 Pulse Oximetry 100 06/15/24 07:14 Oxygen Delivery Method Room Air 06/15/24 07:14 Oxygen Flow Rate 0 06/15/24 07:14 Pain Level 6 06/15/24 07:16 Medical Decision Making Quality:SDOH Health Related Social Needs: No Data to Display PFSH All Active Problems (Updated 06/15/24 @ 09:12 by Gilmer Nur MD) Headache, unspecified (Acute) Headache, unspecified (Acute) Abdominal pain (Acute) Restless legs (Acute) Nausea (Acute) Vaginal discharge (Acute) Bladder pain (Acute) Depo-Provera contraceptive status (Acute) Vaginal burning (Acute) Abnormal uterine bleeding (AUB) (Acute) 04/2023. Brown vaginal discharge while using DepoProvera. Chronic pelvic pain in female (Acute) Abdominal pain (Acute) Dyspareunia due to medical condition in female (Acute) RLQ abdominal pain (Acute) GERD (gastroesophageal reflux disease) (Chronic) refractory to PPI therapy Medical History Personal history of noncompliance with medical treatment Irritable bowel syndrome with constipation denies issues as of 02/12/23 Pelvic pain Bacterial vaginosis Yeast infection Frequent UTI Surgical History History of dental surgery No significant past surgical history Social History Smoking/Tobacco Use Status: Current every day Tobacco Type: e-cigarettes Smoking risk assessment performed?: Yes Alcohol Intake: never Drug use: Never Substance use type: does not use Household members: significant other and other [facility] 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 Sexually active: Yes Do you feel safe at home: Yes Do you feel safe in your relationship?: Yes
[2024-06-15 07:19] VITALS: BP 98/56; PULSE 79; RESP 16; TEMP 37.1; O2SAT 100
[2024-06-15] MEDS: Ketorolac 15 MG/ML VIAL IVP (08:10)
[2024-06-15] MEDS: Normal Saline 500 ML 1000 ML IV (08:10)
[2024-06-15 08:38] LABS: Anion Gap 6.4 mmol/L (3-11); BUN 10 mg/dL (7-18); CO2 27.6 mmol/L (21.0-32.0); CREATININE 0.6 mg/dL (0.55-1.02); Calcium 9.3 mg/dL (8.5-10.1); Chloride 106 mmol/L (98-107); Glucose 79 mg/dL (74-106); Potassium 3.6 mmol/L (3.5-5.1); Sodium 140 mmol/L (136-145)
[2024-06-15 08:45] LABS: HCG Qual (Serum) Negative
[2024-06-15 09:21] VITALS: BP 113/61; PULSE 78; RESP 16; O2SAT 99
== END 2024-06-15 09:24 | disposition home or self-care (01) ==
PROVIDERS: Emergency Provider Emergency Medicine; PCP Student in an Organized Health Care Education/Training Program
DX: R51.9 Headache, unspecified (principal); F17.210 Nicotine dependence, cigarettes, uncomplicated
CPT/HCPCS: 80048; 96374; 99284; 84703; 99283; J1885

== ENCOUNTER 2024-06-16 11:22 | Outpatient (CLI) | payer MEDICAID, SELFPAY ==
[2024-06-18 19:06] LABS: Tissue Transglutaminase Ab IgA <1.2 U/mL (<4.0); Tissue Transglutaminase Ab IgG 5.2 U/mL
== END 2024-06-16 11:23 | disposition home or self-care (01) ==
PROVIDERS: PCP Student in an Organized Health Care Education/Training Program; Visit Provider Student in an Organized Health Care Education/Training Program
DX: R11.0 Nausea (principal)
CPT/HCPCS: 36415; 83516

== ENCOUNTER 2024-06-17 11:57 | Emergency (ER) | payer MEDICAID, SELFPAY ==
[2024-06-17 12:00] VITALS: BP 108/70; PULSE 96; RESP 12; TEMP 36.7; O2SAT 98
--- NOTE | 2024-06-17 12:29 | W.ED.GENAD ---
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 sumatriptan succinate 50 mg tablet 50 mg PO ONCE Patient Comments: take 1 tablet by mouth if needed AT ONSET OF MIGRAINE DIRECTED metoclopramide HCl 5 mg tablet 5 mg PO QAC Qty: 14 0RF Rx Instructions: administer 30 minutes before meals polyethylene glycol 3350 17 gram/dose powder 17 g PO DAILY PRN Patient Comments: MIX 17G (1 CAPFUL) WITH 8 OUNCES OF LIQUID AND DRINK ONCE DAILY albuterol sulfate 2.5 mg /3 mL (0.083 %) solution for nebulization 2.5 mg inhalation BID PRN HPI General Mode of arrival: ambulatory. Date/Time Provider Initiated Documentation: 06/17/24 12:04. Limitations to Documentation: no limitations. Information obtained by: patient. History of Present Illness 19 year old F presents to the emergency department with the chief complaint of migraine, described as moderate, Quality is described as aching, Patient started experiencing this week(s) (1) and it has been constant. No relieving factors improve symptom(s), No exacerbating factors reported . Patient notes denies fever/chills. Related Data Home Medications ?Medication ?Instructions ?Recorded ?Confirmed medroxyprogesterone 150 mg/mL 150 mg IM Q12W #1 mL 02/10/24 06/17/24 intramuscular syringe (Depo-Provera) albuterol sulfate 2.5 mg/3 mL 2.5 mg inhalation BID PRN 05/10/24 06/17/24 (0.083 %) solution for nebulization polyethylene glycol 3350 17 17 g PO DAILY PRN 05/10/24 06/17/24 gram/dose oral powder metoclopramide HCl 5 mg tablet 5 mg PO QAC #14 tabs 06/13/24 06/17/24 sumatriptan succinate 50 mg tablet 50 mg PO ONCE 06/13/24 06/17/24 Previous Rx's ?Medication ?Instructions ?Recorded medroxyprogesterone 150 mg/mL 150 mg IM Q12W #1 mL 02/10/24 intramuscular syringe (Depo-Provera) metoclopramide HCl 5 mg tablet 5 mg PO QAC #14 tabs 06/13/24 Allergies Allergy/AdvReac Type Severity Reaction Status Date / Time fluconazole (From Diflucan) Allergy Mild nausea Verified 06/17/24 12:04 vomiting Penicillins Allergy hives Verified 06/17/24 12:04 General Stated Complaint: Headache WINNIE: 3 Review of Systems All systems reviewed & are unremarkable except as noted in HPI and below Constitutional Constitutional: Denies chills, Denies fever(s), Reports headache(s) and Denies weakness Eyes Eyes: Denies loss of vision ENT Ears, Nose, Mouth, and Throat: Reports headache(s) Cardiovascular Cardiovascular: Denies chest pain and Denies dyspnea Respiratory Respiratory: Denies cough and Denies dyspnea Gastrointestinal Gastrointestinal: Denies abdominal pain, Denies nausea and Denies vomiting Neurologic Neurologic: Reports headache(s), Denies loss of vision and Denies weakness Exam Const General: no acute distress Orientation: alert [facility] Head: normal to inspection Ears: external ears normal General nose exam: external nose normal Mouth: moist mucous membranes Eyes General: appearance normal, both eyes and all related structures Neck Neck: normal visual inspection Resp Effort & Inspection: normal respiratory effort and able to speak in complete sentences Cardio Rate: regular rate Skin General skin exam: no rashes or lesions noted Neuro General: patient alert and patient oriented x3 Cranial Nerves: CN's II-XI intact bilaterally Cognition: normal cognition Speech: speech normal Gait: normal gait Motor: muscle tone normal throughout Sensory Exam: no sensory deficits noted Extrem General: normal to inspection Psych Mental Status: mental status grossly normal Course Vital Signs Vital signs: Vital Signs Temperature 36.7 C 06/17/24 12:00 Pulse 96 H 06/17/24 12:00 Respiratory Rate 12 06/17/24 12:00 Blood Pressure 108/70 06/17/24 12:00 Pulse Oximetry 98 06/17/24 12:00 Temperature 36.7 C 06/17/24 12:00 Temperature Source Oral 06/17/24 12:00 Pulse 96 H 06/17/24 12:00 Respiratory Rate 12 06/17/24 12:00 Blood Pressure 108/70 06/17/24 12:00 Blood Pressure Position Sitting 06/17/24 12:00 Pulse Oximetry 98 06/17/24 12:00 Oxygen Delivery Method Room Air 06/17/24 12:00 Oxygen Flow Rate 0 06/17/24 12:00 Pain Level 7 06/17/24 12:00 Medical Decision Making 29-year-old female who states she has a history of migraines comes in with 1 week of constant head pain. Was seen a few days ago and had IV meds which helped but did not make the pain fully go away. She says it is a lot the worst of her life and the pain slowly worsened and not thunderclap in etiology. Denies any fevers, neck stiffness, vomiting though she is nauseous. She has no deficits noted on exam. I suspect migraine, will check a CMP to evaluate for dehydration and also hCG. Will treat with droperidol and Toradol and reassess. No findings on exam or history to suggest subarachnoid hemorrhage or NURSE SEXUAL [employer]AULT infection Patient eloped prior to IV placement and lab draw. She had medical decision-making capacity and I do not feel she needs a call back to come to the ER. Differential Diagnosis Differential Diagnosis: migraine, tension headache Medical Records Medical records reviewed: Yes I reviewed the patient's medical records. Lab Data Lab results reviewed: Yes I reviewed the patient's lab results. Quality:SDOH Health Related Social Needs: No Data to Display PFSH All Active Problems (Updated 06/17/24 @ 13:27 by Gerardo Aparicio MD) Headache, unspecified (Acute) Headache, unspecified (Acute) Abdominal pain (Acute) Restless legs (Acute) Nausea (Acute) Vaginal discharge (Acute) Bladder pain (Acute) Depo-Provera contraceptive status (Acute) Vaginal burning (Acute) Abnormal uterine bleeding (AUB) (Acute) 04/2023. Brown vaginal discharge while using DepoProvera. Chronic pelvic pain in female (Acute) Abdominal pain (Acute) Dyspareunia due to medical condition in female (Acute) RLQ abdominal pain (Acute) GERD (gastroesophageal reflux disease) (Chronic) refractory to PPI therapy Medical History Personal history of noncompliance with medical treatment Irritable bowel syndrome with constipation denies issues as of 02/12/23 Pelvic pain Bacterial vaginosis Yeast infection Frequent UTI Surgical History History of dental surgery No significant past surgical history Social History Smoking/Tobacco Use Status: Current every day Tobacco Type: e-cigarettes Smoking risk assessment performed?: Yes Alcohol Intake: never Drug use: Never Substance use type: does not use Household members: significant other and other Details: lives with [facility]. 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 Sexually active: Yes Do you feel safe at home: Yes Do you feel safe in your relationship?: Yes
== END 2024-06-17 13:20 | disposition left against medical advice (07) ==
PROVIDERS: Emergency Provider Emergency Medicine; PCP Student in an Organized Health Care Education/Training Program
DX: R51.9 Headache, unspecified (principal); Z53.21 Procedure and treatment not carried out due to patient leaving prior to being seen by health care provider
CPT/HCPCS: 99282; 80053; 99281; 84703

== ENCOUNTER 2024-06-21 08:59 | Emergency (ER) | payer MEDICAID, SELFPAY ==
[2024-06-21 09:01] VITALS: BP 101/59; PULSE 98; RESP 15; TEMP 37; O2SAT 100
[2024-06-21 09:05] VITALS: BP 101/59; PULSE 98; RESP 15; TEMP 37; O2SAT 100
--- NOTE | 2024-06-21 09:27 | ED.GENADUL_ITS ---
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 sumatriptan succinate 50 mg tablet 50 mg PO ONCE Patient Comments: take 1 tablet by mouth if needed AT ONSET OF MIGRAINE DIRECTED metoclopramide HCl 5 mg tablet 5 mg PO QAC Qty: 14 0RF Rx Instructions: administer 30 minutes before meals zolmitriptan 2.5 mg tablet 2.5 mg PO ONCE PRN Patient Comments: TAKE 1 TABLET BY MOUTH ONCE DAILY NEEDED FOR MIGRAINE, TAKE ADDITIONAL TABLET AFTER 2 HOURS IF MIGRAINE PERSISTS. MAX 2 TABLETS PER DAY. polyethylene glycol 3350 17 gram/dose powder 17 g PO DAILY PRN Patient Comments: MIX 17G (1 CAPFUL) WITH 8 OUNCES OF LIQUID AND DRINK ONCE DAILY albuterol sulfate 2.5 mg /3 mL (0.083 %) solution for nebulization 2.5 mg inhalation BID PRN Discharge Instructions Additional Instructions: Start magnesium daily Make sure you are drinking lots of water Take 1 g Tylenol with 600 mg of Motrin, 25 mg of Benadryl and 4 mg Zofran to help with symptoms. You can take this every 6-8 hours. Do not exceed this cocktail more than 3 days/week. Follow-up with neurology clinic. HPI General Date/Time Provider Initiated Documentation: 06/21/24 09:00 . Limitations to Documentation: no limitations . Information obtained by: patient and old records reviewed . HPI Narrative: 19-year-old female with out significant past medical history presents for reevaluation of ongoing headache. The patient reports that she has been having this headache for some time. Thinks is related to her Depo-Provera shot. She has been seen by her BONE DRIER in addition to the emergency department. She has been referred to neurology but has not seen them. She reports that she is taking her sumatriptan hand without improvement. She states that she did take a dose this morning. She is not taking any Motrin and Tylenol. She reports frontal headache that feels like pressure. No significant visual changes, no nausea or vomiting. Related Data Home Medications ?Medication ?Instructions ?Recorded ?Confirmed medroxyprogesterone 150 mg/mL 150 mg IM Q12W #1 mL 02/10/24 06/21/24 intramuscular syringe (Depo-Provera) albuterol sulfate 2.5 mg/3 mL 2.5 mg inhalation BID PRN 05/10/24 06/21/24 (0.083 %) solution for nebulization polyethylene glycol 3350 17 17 g PO DAILY PRN 05/10/24 06/21/24 gram/dose oral powder metoclopramide HCl 5 mg tablet 5 mg PO QAC #14 tabs 06/13/24 06/21/24 sumatriptan succinate 50 mg tablet 50 mg PO ONCE 06/13/24 06/21/24 magnesium oxide 400 mg PO DAILY #30 caps 06/21/24 ondansetron 4 mg disintegrating 4 mg PO Q6H PRN nausea and 06/21/24 tablet vomiting #30 tabs zolmitriptan 2.5 mg tablet 2.5 mg PO ONCE PRN 06/21/24 06/21/24 Previous Rx's ?Medication ?Instructions ?Recorded medroxyprogesterone 150 mg/mL 150 mg IM Q12W #1 mL 02/10/24 intramuscular syringe (Depo-Provera) metoclopramide HCl 5 mg tablet 5 mg PO QAC #14 tabs 06/13/24 magnesium oxide 400 mg PO DAILY #30 caps 06/21/24 ondansetron 4 mg disintegrating 4 mg PO Q6H PRN nausea and 06/21/24 tablet vomiting #30 tabs Allergies Allergy/AdvReac Type Severity Reaction Status Date / Time fluconazole (From Diflucan) Allergy Mild nausea Verified 06/21/24 09:05 vomiting Penicillins Allergy hives Verified 06/21/24 09:05 General Stated Complaint: Headache WINNIE: 4 Exam Narrative Exam Narrative: Review of Systems: All systems reviewed & are unremarkable except as noted in HPI and below Well-developed, no acute distress Afebrile NCAT PERRL, normal conjunctiva RRR Unlabored respiratory effort no focal neurologic deficits Course Vital Signs Vital signs: Vital Signs Temperature 37.0 C 06/21/24 09:01 Pulse 98 H 06/21/24 09:01 Respiratory Rate 15 06/21/24 09:01 Blood Pressure 101/59 L 06/21/24 09:01 Pulse Oximetry 100 06/21/24 09:01 Temperature 37.0 C 06/21/24 09:05 Temperature Source Oral 06/21/24 09:05 Pulse 98 H 06/21/24 09:05 Respiratory Rate 15 06/21/24 09:05 Blood Pressure 101/59 L 06/21/24 09:05 Blood Pressure Position Sitting 06/21/24 09:05 Pulse Oximetry 100 06/21/24 09:05 Oxygen Delivery Method Room Air 06/21/24 09:05 Oxygen Flow Rate 0 06/21/24 09:05 Pain Level 6 06/21/24 09:05 Medical Decision Making Emergent evaluation of ongoing headache. Patient is afebrile, do not suspect infectious etiology. Nonacute onset. Low suspicion for intracranial process. Has a normal nonfocal neurologic examination. She has been evaluated previously for the same symptoms. She is not utilizing the medications available to her for full control. Will start magnesium for preventative daily. Recommend Motrin and Tylenol. Will also prescribe Zofran to take with this cocktail. Patient has had a referral placed to neurology for further evaluation of chronic headache symptoms. Quality:SDOH Health Related Social Needs: No Data to Display PFSH All Active Problems (Updated 06/21/24 @ 09:24 by Maurice Hernández MD) Headache, unspecified (Acute) Abdominal pain (Acute) Restless legs (Acute) Nausea (Acute) Bladder pain (Acute) Depo-Provera contraceptive status (Acute) GERD (gastroesophageal reflux disease) (Chronic) refractory to PPI therapy Medical History (Updated 06/21/24 @ 09:24 by Maurice Hernández MD) Chronic pelvic pain in female Personal history of noncompliance with medical treatment Irritable bowel syndrome with constipation denies issues as of 02/12/23 Frequent UTI Surgical History History of dental surgery No significant past surgical history Social History Smoking/Tobacco Use Status: Current every day Tobacco Type: e-cigarettes Smoking risk assessment performed?: Yes Alcohol Intake: never Drug use: Never Substance use type: does not use Household members: significant other and other Details: lives with Cesario Saleem. 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 Sexually active: Yes Do you feel safe at home: Yes Do you feel safe in your relationship?: Yes
== END 2024-06-21 09:38 | disposition home or self-care (01) ==
PROVIDERS: Emergency Provider Emergency Medicine; PCP Student in an Organized Health Care Education/Training Program
DX: H93.13 Tinnitus, bilateral (principal)
CPT/HCPCS: 99281; 99282

== ENCOUNTER 2024-06-22 06:04 | Emergency (ER) | payer MEDICAID, SELFPAY ==
[2024-06-22 06:06] VITALS: BP 99/71; PULSE 97; RESP 18; TEMP 36.4; O2SAT 99
--- NOTE | 2024-06-22 06:06 | ED.GENADUL_ITS ---
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 metoclopramide HCl 5 mg tablet 5 mg PO QAC Qty: 14 0RF Rx Instructions: administer 30 minutes before meals zolmitriptan 2.5 mg tablet 2.5 mg PO ONCE PRN Patient Comments: TAKE 1 TABLET BY MOUTH ONCE DAILY NEEDED FOR MIGRAINE, TAKE ADDITIONAL TABLET AFTER 2 HOURS IF MIGRAINE PERSISTS. MAX 2 TABLETS PER DAY. magnesium oxide 400 mg magnesium capsule 400 mg PO DAILY Qty: 30 0RF ondansetron 4 mg tablet,disintegrating 4 mg PO Q6H PRN (Reason: nausea and vomiting) Qty: 30 0RF polyethylene glycol 3350 17 gram/dose powder 17 g PO DAILY PRN Patient Comments: MIX 17G (1 CAPFUL) WITH 8 OUNCES OF LIQUID AND DRINK ONCE DAILY albuterol sulfate 2.5 mg /3 mL (0.083 %) solution for nebulization 2.5 mg inhalation BID PRN Discharge Instructions Instructions: Headache, Adult ED HPI General Mode of arrival: ambulatory . Date/Time Provider Initiated Documentation: 06/22/24 06:06 . Limitations to Documentation: no limitations . Information obtained by: patient, RN notes reviewed and old records reviewed . HPI Narrative: Patient returns to ED with continued complaint of frontal throbbing headache with associated photophobia, nausea and vomiting, epigastric pain from vomiting so much. She never really had significant headaches until about a month ago. Since that time she has had multiple ED visits for same. She has followed up with primary care. She has been referred to neurology but has not heard from them in regards to an appointment. She has been on multiple different medications. Recently started on magnesium for preventative therapy. Is taking zolmitriptan at this point as well as acetaminophen and ibuprofen. She always seems to get better here in the ED but reports headache returns after few hours at home. She has no neurologic change. Denies any vision change, confusion, gait instability, numbness, weakness. Related Data Home Medications ?Medication ?Instructions ?Recorded ?Confirmed medroxyprogesterone 150 mg/mL 150 mg IM Q12W #1 mL 02/10/24 06/22/24 intramuscular syringe (Depo-Provera) albuterol sulfate 2.5 mg/3 mL 2.5 mg inhalation BID PRN 05/10/24 06/22/24 (0.083 %) solution for nebulization polyethylene glycol 3350 17 17 g PO DAILY PRN 05/10/24 06/22/24 gram/dose oral powder metoclopramide HCl 5 mg tablet 5 mg PO QAC #14 tabs 06/13/24 06/22/24 magnesium oxide 400 mg PO DAILY #30 caps 06/21/24 06/22/24 ondansetron 4 mg disintegrating 4 mg PO Q6H PRN nausea and 06/21/24 06/22/24 tablet vomiting #30 tabs zolmitriptan 2.5 mg tablet 2.5 mg PO ONCE PRN 06/21/24 06/22/24 Previous Rx's ?Medication ?Instructions ?Recorded medroxyprogesterone 150 mg/mL 150 mg IM Q12W #1 mL 02/10/24 intramuscular syringe (Depo-Provera) metoclopramide HCl 5 mg tablet 5 mg PO QAC #14 tabs 06/13/24 magnesium oxide 400 mg PO DAILY #30 caps 06/21/24 ondansetron 4 mg disintegrating 4 mg PO Q6H PRN nausea and 06/21/24 tablet vomiting #30 tabs Allergies Allergy/AdvReac Type Severity Reaction Status Date / Time fluconazole (From Diflucan) Allergy Mild nausea Verified 06/22/24 06:08 vomiting Penicillins Allergy hives Verified 06/22/24 06:08 General WINNIE: 4 Exam Narrative Exam Narrative: Const: WDWN female in NAD. VS per triage. HEENT: NC/AT. Normal facial exam. Eyes: PERRL and EOMI. VF in tact. Neck: Supple. Trachea midline. Lungs: Normal respiratory effort. Lungs are clear. Cor: RRR without murmur. Good radial pulses. Neuro: A+O x 3. Normal speech, mentation, gait. Cranial nerves II - XII grossly intact. No gross motor or sensory deficit. Ext: No C/C/E. Medical Decision Making Patient returns to ED with continued headache. She describes the headache as frontal and throbbing in nature. Has associated photophobia, nausea and vomiting. Has some epigastric discomfort from all the vomiting. Has had multiple ED visits and has seen primary care. Always seems to improve here with recurrent symptoms after returning home. She has been afebrile with no infectious symptoms. She has no neck pain or stiffness. She looks completely well. Her neurological exam is normal. She does typically respond to fluids, ketorolac, prochlorperazine. She has had restless legs related to droperidol so we will avoid this. She has been started on magnesium and I have encouraged her to continue this on a daily basis for preventative therapy. I will give a dose of dexamethasone as she has had an intractable course. I do not think labs or imaging are indicated at this point. She has been referred to neurology but is waiting to hear back. Will sign out to oncoming ED physician pending reevaluation after fluids and medications. Medical Records Medical records reviewed: Yes I reviewed the patient's medical records. PFSH All Active Problems Frequent UTI (Acute) Headache, unspecified (Acute) Abdominal pain (Acute) Nausea (Acute) Depo-Provera contraceptive status (Acute) Medical History GERD (gastroesophageal reflux disease) refractory to PPI therapy Chronic pelvic pain in female Personal history of noncompliance with medical treatment Irritable bowel syndrome with constipation denies issues as of 02/12/23 Surgical History History of dental surgery Social History Smoking/Tobacco Use Status: Current every day Tobacco Type: e-cigarettes Smoking risk assessment performed?: Yes Alcohol Intake: never Drug use: Never Substance use type: does not use Household members: significant other and other Details: lives with [facility]. 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 Sexually active: Yes Do you feel safe at home: Yes Do you feel safe in your relationship?: Yes
[2024-06-22] MEDS: Normal Saline 1,000 ML 1000 ML IV (06:36)
[2024-06-22] MEDS: Dexamethasone 4 MG/ML VIAL 8 MG IVP (06:36)
[2024-06-22] MEDS: Ketorolac 15 MG/ML VIAL IVP (06:37)
--- NOTE | 2024-06-22 07:39 | ED.PROG_ITS ---
Date of service: 06/22/24 Time of Service: 07:39 Medical Decision Making I received signout on this 19-year-old female in the emergency department in setting of headache. She has been seen multiple times in the recent past. She complained of nausea for which I ordered ondansetron if she had received prochlorperazine. 8:14 AM Patient felt improved. Her headache has resolved. She requested discharge. We discussed that she has to return emergency department if she develops vomiting that does not stop fevers or had any other concerns. 3:45 PM Patient was seen by her PCP following her ED visit. She has follow-up with the psychiatric provider at her PCPs office tomorrow. 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 metoclopramide HCl 5 mg tablet 5 mg PO QAC Qty: 14 0RF Rx Instructions: administer 30 minutes before meals zolmitriptan 2.5 mg tablet 2.5 mg PO ONCE PRN Patient Comments: TAKE 1 TABLET BY MOUTH ONCE DAILY NEEDED FOR MIGRAINE, TAKE ADDITIONAL TABLET AFTER 2 HOURS IF MIGRAINE PERSISTS. MAX 2 TABLETS PER DAY. magnesium oxide 400 mg magnesium capsule 400 mg PO DAILY Qty: 30 0RF ondansetron 4 mg tablet,disintegrating 4 mg PO Q6H PRN (Reason: nausea and vomiting) Qty: 30 0RF polyethylene glycol 3350 17 gram/dose powder 17 g PO DAILY PRN Patient Comments: MIX 17G (1 CAPFUL) WITH 8 OUNCES OF LIQUID AND DRINK ONCE DAILY albuterol sulfate 2.5 mg /3 mL (0.083 %) solution for nebulization 2.5 mg inhalation BID PRN Discharge Instructions Instructions: Headache, Adult ED Additional Instructions: You are seen in the emergency department for your headache. As we discussed if you begin vomiting and do not stop or if you develop any fevers please return to the emergency department. Otherwise please follow-up with your primary care provider in the next week. For your pain please take medications as follows: 1. Take acetaminophen (Tylenol), 650 mg every 6 hours [2. Take ibuprofen (Advil), 400 mg every 6 hours.] Discharge Data Discharge Date/Time-TO BE ENTERED AT DEPARTURE: 06/22/24 08:28
[2024-06-22] MEDS: Ondansetron O.D.T. 4 MG TABEF PO (07:44)
[2024-06-22 08:19] VITALS: BP 107/48; PULSE 100; RESP 14; TEMP 36.8; O2SAT 100
== END 2024-06-22 08:28 | disposition home or self-care (01) ==
PROVIDERS: Emergency Provider Emergency Medicine; PCP Student in an Organized Health Care Education/Training Program
DX: R51.9 Headache, unspecified; R11.2 Nausea with vomiting, unspecified
CPT/HCPCS: 99283; 99284; 96374; 96375; 81025; 36415; 00123; 96361; J1100; J1885

== ENCOUNTER 2024-06-23 14:08 | Emergency (ER) | payer MEDICAID, SELFPAY ==
[2024-06-23 14:14] VITALS: BP 106/70; PULSE 98; RESP 16; TEMP 36.9; O2SAT 99
--- NOTE | 2024-06-23 15:00 | W.ED.GENAD ---
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 metoclopramide HCl 5 mg tablet 5 mg PO QAC Qty: 14 0RF Rx Instructions: administer 30 minutes before meals zolmitriptan 2.5 mg tablet 2.5 mg PO ONCE PRN Patient Comments: TAKE 1 TABLET BY MOUTH ONCE DAILY NEEDED FOR MIGRAINE, TAKE ADDITIONAL TABLET AFTER 2 HOURS IF MIGRAINE PERSISTS. MAX 2 TABLETS PER DAY. magnesium oxide 400 mg magnesium capsule 400 mg PO DAILY Qty: 30 0RF ondansetron 4 mg tablet,disintegrating 4 mg PO Q6H PRN (Reason: nausea and vomiting) Qty: 30 0RF polyethylene glycol 3350 17 gram/dose powder 17 g PO DAILY PRN Patient Comments: MIX 17G (1 CAPFUL) WITH 8 OUNCES OF LIQUID AND DRINK ONCE DAILY albuterol sulfate 2.5 mg /3 mL (0.083 %) solution for nebulization 2.5 mg inhalation BID PRN Discharge Instructions Additional Instructions: Discussed with your primary care provider if you should continue the propranolol. Return to the emergency department if you feel more ill or have new symptoms such as high fevers. HPI General Mode of arrival: ambulatory. Date/Time Provider Initiated Documentation: 06/23/24 14:18. Limitations to Documentation: no limitations. Information obtained by: patient. History of Present Illness 19 year old F presents to the emergency department with the chief complaint of tinnitus, described as moderate, Patient started experiencing this day(s) (1) and it has been constant. No relieving factors improve symptom(s), No exacerbating factors reported . Patient notes no other symptoms.. Patient did receive the following treatments prior to arrival, none Related Data Home Medications ?Medication ?Instructions ?Recorded ?Confirmed medroxyprogesterone 150 mg/mL 150 mg IM Q12W #1 mL 02/10/24 06/23/24 intramuscular syringe (Depo-Provera) albuterol sulfate 2.5 mg/3 mL 2.5 mg inhalation BID PRN 05/10/24 06/23/24 (0.083 %) solution for nebulization polyethylene glycol 3350 17 17 g PO DAILY PRN 05/10/24 06/23/24 gram/dose oral powder metoclopramide HCl 5 mg tablet 5 mg PO QAC #14 tabs 06/13/24 06/23/24 magnesium oxide 400 mg PO DAILY #30 caps 06/21/24 06/23/24 ondansetron 4 mg disintegrating 4 mg PO Q6H PRN nausea and 06/21/24 06/23/24 tablet vomiting #30 tabs zolmitriptan 2.5 mg tablet 2.5 mg PO ONCE PRN 06/21/24 06/23/24 prednisone 20 mg tablet 60 mg (3 x 20 mg) PO DAILY 4 days 06/23/24 #12 tabs Previous Rx's ?Medication ?Instructions ?Recorded medroxyprogesterone 150 mg/mL 150 mg IM Q12W #1 mL 02/10/24 intramuscular syringe (Depo-Provera) metoclopramide HCl 5 mg tablet 5 mg PO QAC #14 tabs 06/13/24 magnesium oxide 400 mg PO DAILY #30 caps 06/21/24 ondansetron 4 mg disintegrating 4 mg PO Q6H PRN nausea and 06/21/24 tablet vomiting #30 tabs prednisone 20 mg tablet 60 mg (3 x 20 mg) PO DAILY 4 days 06/23/24 #12 tabs Allergies Allergy/AdvReac Type Severity Reaction Status Date / Time fluconazole (From GameOnlucan) Allergy Mild nausea Verified 06/23/24 14:16 vomiting Penicillins Allergy hives Verified 06/23/24 14:16 General Stated Complaint: EarProblem WINNIE: 4 Review of Systems All systems reviewed & are unremarkable except as noted in HPI and below Constitutional Constitutional: Denies chills, Denies fever(s) and Denies weakness Eyes Eyes: Denies loss of vision Cardiovascular Cardiovascular: Denies chest pain and Denies dyspnea Respiratory Respiratory: Denies cough and Denies dyspnea Gastrointestinal Gastrointestinal: Denies abdominal pain, Denies nausea and Denies vomiting Neurologic Neurologic: Denies loss of vision and Denies weakness Exam Const General: no acute distress Orientation: alert HENMT Head: normal to inspection Ears: external ears normal, TM normal on the right, TM normal on the left, EAC's normal and mastoids normal General nose exam: external nose normal Mouth: moist mucous membranes Eyes General: appearance normal, both eyes and all related structures Neck Neck: normal visual inspection Resp Effort & Inspection: normal respiratory effort and able to speak in complete sentences Cardio Rate: regular rate Skin General skin exam: no rashes or lesions noted Neuro General: patient alert and patient oriented x3 Extrem General: normal to inspection Psych Mental Status: mental status grossly normal Course Vital Signs Vital signs: Vital Signs Temperature 36.9 C 06/23/24 14:14 Pulse 98 H 06/23/24 14:14 Respiratory Rate 16 06/23/24 14:14 Blood Pressure 106/70 06/23/24 14:14 Pulse Oximetry 99 06/23/24 14:14 Temperature 36.9 C 06/23/24 14:14 Temperature Source Oral 06/23/24 14:14 Pulse 98 H 06/23/24 14:14 Respiratory Rate 16 06/23/24 14:14 Blood Pressure 106/70 06/23/24 14:14 Blood Pressure Position Sitting 06/23/24 14:14 Pulse Oximetry 99 06/23/24 14:14 Oxygen Delivery Method Room Air 06/23/24 14:14 Oxygen Flow Rate 0 06/23/24 14:14 Pain Level 6 06/23/24 14:34 Medical Decision Making 19-year-old female with frequent migraines, anxiety comes in with 1 day of hearing ringing in both of her ears. Denies any fevers, drainage, trauma. She states she recently stopped taking her propranolol as she thought this may have been the cause of it as she recently started it. She is well-appearing. Both TMs are normal, external auditory canals are normal. She has normal external mastoid exams. Counter Pseudo-12 are intact. She has no neck pain, I doubt entities such as acoustic neuroma, denies any medications or gatk-ont-ayncsig meds that would cause this. I suspect she could have M?ni?re's versus lab otitis among other causes I will put her on prednisone and have her follow-up with her PCP. Return precautions given. She has no neck pain or bruits on exam so I doubt entities such as dissection. Differential Diagnosis Differential Diagnosis: Lab otitis, Quality:SDOH Health Related Social Needs: No Data to Display PFSH All Active Problems Tinnitus (Acute) Frequent UTI (Acute) Headache, unspecified (Acute) Abdominal pain (Acute) Nausea (Acute) Depo-Provera contraceptive status (Acute) Medical History GERD (gastroesophageal reflux disease) refractory to PPI therapy Chronic pelvic pain in female Personal history of noncompliance with medical treatment Irritable bowel syndrome with constipation denies issues as of 02/12/23 Surgical History History of dental surgery Social History Smoking/Tobacco Use Status: Current every day Tobacco Type: e-cigarettes Smoking risk assessment performed?: Yes Alcohol Intake: never Drug use: Never Substance use type: does not use Household members: significant other and other Details: lives with [facility]. 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 Sexually active: Yes Do you feel safe at home: Yes Do you feel safe in your relationship?: Yes
== END 2024-06-23 15:34 | disposition home or self-care (01) ==
PROVIDERS: Emergency Provider Emergency Medicine; PCP Student in an Organized Health Care Education/Training Program
DX: H93.13 Tinnitus, bilateral (principal); F17.290 Nicotine dependence, other tobacco product, uncomplicated
CPT/HCPCS: 99283

== ENCOUNTER 2024-06-24 05:49 | Emergency (ER) | payer MEDICAID, SELFPAY ==
[2024-06-24 05:53] VITALS: BP 109/73; PULSE 78; RESP 16; TEMP 36.5; O2SAT 100
[2024-06-24 05:56] VITALS: BP 109/73; PULSE 78; RESP 16; TEMP 36.5; O2SAT 100
--- NOTE | 2024-06-24 06:13 | ED.GENADUL_ITS ---
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 metoclopramide HCl 5 mg tablet 5 mg PO QAC Qty: 14 0RF Rx Instructions: administer 30 minutes before meals zolmitriptan 2.5 mg tablet 2.5 mg PO ONCE PRN Patient Comments: TAKE 1 TABLET BY MOUTH ONCE DAILY NEEDED FOR MIGRAINE, TAKE ADDITIONAL TABLET AFTER 2 HOURS IF MIGRAINE PERSISTS. MAX 2 TABLETS PER DAY. magnesium oxide 400 mg magnesium capsule 400 mg PO DAILY Qty: 30 0RF ondansetron 4 mg tablet,disintegrating 4 mg PO Q6H PRN (Reason: nausea and vomiting) Qty: 30 0RF polyethylene glycol 3350 17 gram/dose powder 17 g PO DAILY PRN Patient Comments: MIX 17G (1 CAPFUL) WITH 8 OUNCES OF LIQUID AND DRINK ONCE DAILY albuterol sulfate 2.5 mg /3 mL (0.083 %) solution for nebulization 2.5 mg inhalation BID PRN prednisone 20 mg tablet 60 mg PO DAILY 4 Days Qty: 12 0RF Discharge Instructions Instructions: Tinnitus (ringing in the ears) Additional Instructions: Unfortunately, there is nothing that is going to make the ringing/buzzing in your ears go away other than time if it is related to the propranolol. You should continue to follow-up with primary care and your therapist who are trying to find medications that will not cause you significant side effects that can help with both migraines and anxiety. You should return to the emergency department if you have any acute neurologic change such as loss of vision, speech disturbance, numbness or weakness on one side, dizziness or gait disturbance. Referrals: Reinier Kenney [Primary Care Provider] - Discharge Data Discharge Date/Time-TO BE ENTERED AT DEPARTURE: 06/24/24 06:37 HPI General Mode of arrival: ambulatory . Date/Time Provider Initiated Documentation: 06/24/24 05:50 . Limitations to Documentation: no limitations . Information obtained by: patient, RN notes reviewed and old records reviewed . HPI Narrative: Patient is presenting to ED with continued complaint of ringing and buzzing in both ears. Patient was seen yesterday morning for same. She has had multiple ED visits for headaches as well. Currently no headache for the last couple of days. No new neurologic changes or complaints. Both years are involved not unilateral. She has no neck pain. She thinks it is from the propranolol which she has since stopped 2 days ago. She was placed on prednisone by ED provider yesterday for possible vestibulitis. She has returned today because it is not resolved. Related Data Home Medications ?Medication ?Instructions ?Recorded ?Confirmed medroxyprogesterone 150 mg/mL 150 mg IM Q12W #1 mL 02/10/24 06/23/24 intramuscular syringe (Depo-Provera) albuterol sulfate 2.5 mg/3 mL 2.5 mg inhalation BID PRN 05/10/24 06/23/24 (0.083 %) solution for nebulization polyethylene glycol 3350 17 17 g PO DAILY PRN 05/10/24 06/23/24 gram/dose oral powder metoclopramide HCl 5 mg tablet 5 mg PO QAC #14 tabs 06/13/24 06/23/24 magnesium oxide 400 mg PO DAILY #30 caps 06/21/24 06/23/24 ondansetron 4 mg disintegrating 4 mg PO Q6H PRN nausea and 06/21/24 06/23/24 tablet vomiting #30 tabs zolmitriptan 2.5 mg tablet 2.5 mg PO ONCE PRN 06/21/24 06/23/24 prednisone 20 mg tablet 60 mg (3 x 20 mg) PO DAILY 4 days 06/23/24 #12 tabs Previous Rx's ?Medication ?Instructions ?Recorded medroxyprogesterone 150 mg/mL 150 mg IM Q12W #1 mL 02/10/24 intramuscular syringe (Depo-Provera) metoclopramide HCl 5 mg tablet 5 mg PO QAC #14 tabs 06/13/24 magnesium oxide 400 mg PO DAILY #30 caps 06/21/24 ondansetron 4 mg disintegrating 4 mg PO Q6H PRN nausea and 06/21/24 tablet vomiting #30 tabs prednisone 20 mg tablet 60 mg (3 x 20 mg) PO DAILY 4 days 06/23/24 #12 tabs Allergies Allergy/AdvReac Type Severity Reaction Status Date / Time fluconazole (From Diflucan) Allergy Mild nausea Verified 06/23/24 14:16 vomiting Penicillins Allergy hives Verified 06/23/24 14:16 General Stated Complaint: EarProblem WINNIE: 4 Exam Narrative Exam Narrative: Const: WDWN female in NAD texting on her cell phone. VS per triage. HEENT: NC/AT. Normal facial exam. TMs and canals clear B. Eyes: PERRL and EOMI. Neck: Supple. Trachea midline. Lungs: Normal respiratory effort. Neuro: A+O x 3. Normal speech, mentation, gait. Cranial nerves II - XII grossly intact. No gross motor or sensory deficit. Course Vital Signs Vital signs: Vital Signs Temperature 97.7 F 06/24/24 05:53 Pulse 78 06/24/24 05:53 Respiratory Rate 16 06/24/24 05:53 Blood Pressure 109/73 06/24/24 05:53 Pulse Oximetry 100 06/24/24 05:53 Temperature 97.7 F 06/24/24 05:56 Temperature Source Temporal Artery Scan 06/24/24 05:56 Pulse 78 06/24/24 05:56 Respiratory Rate 16 06/24/24 05:56 Blood Pressure 109/73 06/24/24 05:56 Blood Pressure Position Sitting 06/24/24 05:56 Pulse Oximetry 100 06/24/24 05:56 Oxygen Delivery Method Room Air 06/24/24 05:56 Oxygen Flow Rate 0 06/24/24 05:53 Pain Level 6 06/24/24 05:56 Medical Decision Making Patient presents to ED again this morning with complaint of tinnitus in both ears. She was seen yesterday for same. She currently has no headaches and no neurologic complaints. Her exam remains normal. Patient is reassured and told that if tinnitus is related to propranolol it may take more than a couple of days to resolve. She is encouraged to follow-up with primary care including use of the portal for communication as indicated in his note from a couple of days ago. She is encouraged to use the ED for any significant neurologic change, syncope. Medical Records Medical records reviewed: Yes I reviewed the patient's medical records. PFSH All Active Problems Tinnitus (Acute) Frequent UTI (Acute) Headache, unspecified (Acute) Abdominal pain (Acute) Nausea (Acute) Depo-Provera contraceptive status (Acute) Medical History GERD (gastroesophageal reflux disease) refractory to PPI therapy Chronic pelvic pain in female Personal history of noncompliance with medical treatment Irritable bowel syndrome with constipation denies issues as of 02/12/23 Surgical History History of dental surgery Social History Smoking/Tobacco Use Status: Current every day Tobacco Type: e-cigarettes Smoking risk assessment performed?: Yes Alcohol Intake: never Drug use: Never Substance use type: does not use Household members: significant other and other Details: lives with [facility]. 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 Sexually active: Yes Do you feel safe at home: Yes Do you feel safe in your relationship?: Yes
== END 2024-06-24 06:37 | disposition home or self-care (01) ==
LOC: ER 06:43
PROVIDERS: Emergency Provider Emergency Medicine; PCP Student in an Organized Health Care Education/Training Program
DX: H93.13 Tinnitus, bilateral (principal)
CPT/HCPCS: 99283

== ENCOUNTER 2024-06-28 09:02 | Emergency (ER) | payer MEDICAID, SELFPAY ==
--- NOTE | 2024-06-28 09:00 | DI.US_ITS ---
Exam(s) US ABDOMEN LIMITED EXAM: US ABDOMEN LIMITED CLINICAL HISTORY: RUQ, epigastric pain TECHNIQUE: Ultrasound abdomen performed using standard protocol. COMPARISON: CT CT ABDOMEN PELVIS WO from 05/14/2024 FINDINGS: LIVER: Normal size. Normalechogenicity. No focal liver lesions are seen.. GALLBLADDER: No evidence of cholelithiasis. No evidence of wall thickening. No pericholecystic fluid identified. MCLEAN'S SIGN: Negative. BILIARY SYSTEM: No intrahepatic or extrahepatic biliary ductal dilation. RIGHT KIDNEY: Normal size. No evidence of renal calculi. No evidence of hydronephrosis. No suspicious renal mass. No cyst identified. PANCREAS: Normal where visualized. ABDOMINAL AORTA AND IVC: Visualized portions normal caliber. ASCITES: None seen. IMPRESSION: Normal sonographic appearance of the right upper quadrant. DATA REPOSITORY:
[2024-06-28 09:05] VITALS: BP 108/59; PULSE 117; RESP 18; O2SAT 99
[2024-06-28 09:19] VITALS: TEMP 36.5
[2024-06-28 09:22] VITALS: BP 108/59; RESP 18; TEMP 36.9; O2SAT 99
[2024-06-28] MEDS: Hyoscyamine 0.125 MG SL/ORAL/CHEW SL (10:11)
[2024-06-28 10:28] LABS: Abs Immature Grans 0.01 10^3/uL (0.0-0.06); Absolute Basophil Count 0.04 10^3/uL (0.0-0.2); Absolute Eosinophil Count 0.19 10^3/uL (0.0-0.7); Absolute Lymphocyte Count 0.74 10^3/uL (1.2-3.4); Absolute Monocyte Count 0.32 10^3/uL (0.1-0.8); Absolute Neutrophil Count 2.76 10^3/uL (1.2-6.7); Eosinophils % 4.7 %; HCT 42.2 % (36.0-46.0); HGB 14.4 g/dL (11.2-15.7); Immature Grans % 0.2 %; Lymphocytes % 18.2 %; MCH 29.4 pg (27.0-33.0); MCHC 34.1 % (32.0-36.0); MCV 86 fL (80-95); MPV 10.5 fL (8.0-11.0); Monocytes % 7.9 %; Platelet Count 283 10^3/uL (130-400); RBC 4.89 10^6/uL (3.93-5.22); RDW 11.6 % (11.7-14.6); RDW-SD 36.8 fL; WBC 4.06 10^3/uL (4.4-10.8)
[2024-06-28 10:45] LABS: ALT 17 U/L (14-59); AST 15 U/L (15-37); Albumin 4.4 g/dL (3.4-5.0); Alkaline Phosphatase 79 U/L (46-116); BUN 9 mg/dL (7-18); Bilirubin, Total 0.3 mg/dL (0.2-1.0); CREATININE 0.7 mg/dL (0.55-1.02); Calcium 9.3 mg/dL (8.5-10.1); Chloride 104 mmol/L (98-107); Glucose 98 mg/dL (74-106); Lipase 30 U/L (<78); Potassium 3.8 mmol/L (3.5-5.1); Sodium 141 mmol/L (136-145); Total Protein 7.6 g/dL (6.4-8.2)
[2024-06-28 11:24] VITALS: BP 89/66; PULSE 86; RESP 18; TEMP 36.6; O2SAT 100
--- NOTE | 2024-06-28 15:19 | W.ED.GENAD ---
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 zolmitriptan 2.5 mg tablet 2.5 mg PO ONCE PRN Patient Comments: TAKE 1 TABLET BY MOUTH ONCE DAILY NEEDED FOR MIGRAINE, TAKE ADDITIONAL TABLET AFTER 2 HOURS IF MIGRAINE PERSISTS. MAX 2 TABLETS PER DAY. magnesium oxide 400 mg magnesium capsule 400 mg PO DAILY Qty: 30 0RF ondansetron 4 mg tablet,disintegrating 4 mg PO Q6H PRN (Reason: nausea and vomiting) Qty: 30 0RF polyethylene glycol 3350 17 gram/dose powder 17 g PO DAILY PRN Patient Comments: MIX 17G (1 CAPFUL) WITH 8 OUNCES OF LIQUID AND DRINK ONCE DAILY albuterol sulfate 2.5 mg /3 mL (0.083 %) solution for nebulization 2.5 mg inhalation BID PRN Discharge Instructions Instructions: Abdominal Pain, Adult ED Additional Instructions: Take Protonix and Bentyl as prescribed bland foods and regular fluids as tolerated Follow-up with your primary care physician and return earlier should you have new or worsening complaints your tests today including your ultrasound do not show evidence of any acute abnormality Referrals: Reinier Kenney [Primary Care Provider] - 2 days Discharge Data Discharge Date/Time-TO BE ENTERED AT DEPARTURE: 06/28/24 11:26 HPI General Date/Time Provider Initiated Documentation: 06/28/24 09:06. HPI Narrative: 19-year-old female with epigastric pain for 3 days. Pain is cramping, with no known exacerbating or alleviating factors. History of lower abdominal pain evaluated by [facility], both negative. No chest pain, SOB, dizziness, weakness, or . Reports underlying anxiety. Related Data Home Medications ?Medication ?Instructions ?Recorded ?Confirmed medroxyprogesterone 150 mg/mL 150 mg IM Q12W #1 mL 02/10/24 06/28/24 intramuscular syringe (Depo-Provera) albuterol sulfate 2.5 mg/3 mL 2.5 mg inhalation BID PRN 05/10/24 06/28/24 (0.083 %) solution for nebulization polyethylene glycol 3350 17 17 g PO DAILY PRN 05/10/24 06/28/24 gram/dose oral powder magnesium oxide 400 mg PO DAILY #30 caps 06/21/24 06/28/24 ondansetron 4 mg disintegrating 4 mg PO Q6H PRN nausea and 06/21/24 06/28/24 tablet vomiting #30 tabs zolmitriptan 2.5 mg tablet 2.5 mg PO ONCE PRN 06/21/24 06/28/24 dicyclomine 10 mg capsule 10 mg PO TID #14 caps 06/28/24 pantoprazole 20 mg tablet,delayed 20 mg PO DAILY #30 tabs 06/28/24 release (Protonix) Previous Rx's ?Medication ?Instructions ?Recorded medroxyprogesterone 150 mg/mL 150 mg IM Q12W #1 mL 02/10/24 intramuscular syringe (Depo-Provera) magnesium oxide 400 mg PO DAILY #30 caps 06/21/24 ondansetron 4 mg disintegrating 4 mg PO Q6H PRN nausea and 06/21/24 tablet vomiting #30 tabs dicyclomine 10 mg capsule 10 mg PO TID #14 caps 06/28/24 pantoprazole 20 mg tablet,delayed 20 mg PO DAILY #30 tabs 06/28/24 release (Protonix) Allergies Allergy/AdvReac Type Severity Reaction Status Date / Time fluconazole (From Diflucan) Allergy Mild nausea Verified 06/28/24 09:07 vomiting Penicillins Allergy hives Verified 06/28/24 09:07 General Stated Complaint: Abd Prob WINNIE: 3 Exam Narrative Exam Narrative: General Appearance: Alert, oriented, no acute distress. Vital signs: Within normal limits. HEENT: Within normal limits. Respiratory: Within normal limits. Gastrointestinal: Tenderness in epigastrium, no rebound or guarding. Back, Musculoskeletal: no CVA tenderness. Skin: no rashes or lesions. Neurological: Normal. Course Vital Signs Vital signs: Vital Signs Pulse 117 H 06/28/24 09:05 Respiratory Rate 18 06/28/24 09:05 Blood Pressure 108/59 L 06/28/24 09:05 Pulse Oximetry 99 06/28/24 09:05 Temperature 36.6 C 06/28/24 11:24 Temperature Source Temporal Artery Scan 06/28/24 09:22 Pulse 86 06/28/24 11:24 Respiratory Rate 18 06/28/24 11:24 Blood Pressure 89/66 L 06/28/24 11:24 Blood Pressure Position Sitting 06/28/24 09:22 Pulse Oximetry 100 06/28/24 11:24 Oxygen Delivery Method Room Air 06/28/24 09:22 Oxygen Flow Rate 0 06/28/24 09:05 Pain Level 0 06/28/24 11:24 Lab/Test Results Lab/Test Results: Laboratory Tests Range/Units 06/28/24 10:22 WBC (4.4-10.8) 10^3/uL 4.06 L RBC (3.93-5.22) 10^6/uL 4.89 Hgb (11.2-15.7) g/dL 14.4 Hct (36.0-46.0) % 42.2 MCV (80-95) fL 86 MCH (27.0-33.0) pg 29.4 MCHC (32.0-36.0) % 34.1 RDW (11.7-14.6) % 11.6 L Plt Count (130-400) 10^3/uL 283 MPV (8.0-11.0) fL 10.5 Immature Gran % % 0.2 Neutrophils % % 68.0 Lymphocytes % % 18.2 Monocytes % % 7.9 Eosinophils % % 4.7 Basophils % % 1.0 Nucleated RBC % (0.0-0.3) % 0.0 Absolute Neutrophils (1.2-6.7) 10^3/uL 2.76 Absolute Lymphocytes (1.2-3.4) 10^3/uL 0.74 L Absolute Monocytes (0.1-0.8) 10^3/uL 0.32 Absolute Eosinophils (0.0-0.7) 10^3/uL 0.19 Absolute Basophils (0.0-0.2) 10^3/uL 0.04 Sodium (136-145) mmol/L 141 Potassium (3.5-5.1) mmol/L 3.8 Chloride (98-107) mmol/L 104 Carbon Dioxide (21.0-32.0) mmol/L 28.0 Anion Gap (3-11) mmol/L 9.0 BUN (7-18) mg/dL 9 Creatinine (0.55-1.02) mg/dL 0.7 Est GFR (CKD-EPI 2020) (mL/min/1.73m2) 126.90 Glucose (74-106) mg/dL 98 Calcium (8.5-10.1) mg/dL 9.3 Total Bilirubin (0.2-1.0) mg/dL 0.3 AST (15-37) U/L 15 ALT (14-59) U/L 17 Alkaline Phosphatase (46-116) U/L 79 Total Protein (6.4-8.2) g/dL 7.6 Albumin (3.4-5.0) g/dL 4.4 Lipase (<78) U/L 30 Medical Decision Making Ultrasound: no acute abnormality. Initial Assessment: 19-year-old female with epigastric abdominal pain for 3 days, cramping, no known exacerbating or alleviating factors. Prior endoscopy negative. Denies chest pain, shortness of breath, dizziness, weakness, or chance of . Alert and oriented, no acute distress, tenderness in epigastrium, no rebound or guarding, no CVA tenderness, no rashes or lesions. Differential Diagnosis: - IBS: Describes pain as cramping sensation, underlying anxiety. - Cholecystitis: Low risk. - Pancreatitis: Low risk. ED Course: - Ordered ultrasound and diagnostic blood work including lipase. - Given dose of Levsin. - Ultrasound does not show acute abnormality per radiology interpretation and my review. - Diagnostic labs are reassuring. - Discharged home on Bentyl and Protonix. - PCP recheck in outpatient setting. Final Assessment: Epigastric pain persistent for 3 days, cramping, no known exacerbating or alleviating factors. Possible IBS, low risk for cholecystitis or pancreatitis. Prior endoscopy negative. Ultrasound and labs reassuring. Clinical Impression: - Epigastric pain - Possible IBS - Low risk for cholecystitis - Low risk for pancreatitis Disposition: - Discharge: Patient discharged home. - Follow-Up: PCP recheck in outpatient setting. MDM Components Evaluation: - Number of Differential Diagnoses or Management Options: IBS, cholecystitis, pancreatitis. - Amount and Complexity of Data Reviewed: Ultrasound, diagnostic blood work including lipase, prior endoscopy report. - Risk of Complication and Morbidity or Mortality: Low risk for cholecystitis and pancreatitis. Quality:SDOH Health Related Social Needs: No Data to Display PFSH All Active Problems Acute epigastric pain (Acute) Tinnitus (Acute) Frequent UTI (Acute) Headache, unspecified (Acute) Abdominal pain (Acute) Nausea (Acute) Depo-Provera contraceptive status (Acute) Medical History GERD (gastroesophageal reflux disease) refractory to PPI therapy Chronic pelvic pain in female Personal history of noncompliance with medical treatment Irritable bowel syndrome with constipation denies issues as of 02/12/23 Surgical History History of dental surgery Social History Smoking/Tobacco Use Status: Current every day Tobacco Type: e-cigarettes Smoking risk assessment performed?: Yes Alcohol Intake: never Drug use: Never Substance use type: does not use Household members: significant other and other Details: lives [facility]. 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 Sexually active: Yes Do you feel safe at home: Yes Do you feel safe in your relationship?: Yes
== END 2024-06-28 11:26 | disposition home or self-care (01) ==
PROVIDERS: Emergency Provider Physician Assistant; PCP Student in an Organized Health Care Education/Training Program
DX: R10.13 Epigastric pain (principal); F17.290 Nicotine dependence, other tobacco product, uncomplicated
CPT/HCPCS: 80053; 83690; 99284; 76705; 85025; J3490

== ENCOUNTER 2024-07-06 09:40 | Emergency (ER) | payer MEDICAID, SELFPAY ==
[2024-07-06 09:49] VITALS: BP 110/75; PULSE 95; RESP 18; TEMP 37.1; O2SAT 98
[2024-07-06 09:52] VITALS: BP 110/75; PULSE 95; RESP 18; TEMP 37.1; O2SAT 98
== END 2024-07-06 10:24 | disposition left against medical advice (07) ==
PROVIDERS: PCP Student in an Organized Health Care Education/Training Program
DX: Z53.29 Procedure and treatment not carried out because of patient's decision for other reasons (principal)

== ENCOUNTER 2024-07-19 11:26 | Outpatient (CLI) | payer MEDICAID, SELFPAY | END 2024-07-19 11:27 | disposition home or self-care (01) | PROVIDERS: PCP Student in an Organized Health Care Education/Training Program; Referring Provider Student in an Organized Health Care Education/Training Program; Visit Provider Student in an Organized Health Care Education/Training Program | DX: R00.2 Palpitations (principal) | CPT/HCPCS: 93246 ==

== ENCOUNTER 2024-07-19 13:44 | Emergency (ER) | payer MEDICAID, SELFPAY | END 2024-07-20 14:58 | disposition left against medical advice (07) | PROVIDERS: PCP Student in an Organized Health Care Education/Training Program | DX: Z53.21 Procedure and treatment not carried out due to patient leaving prior to being seen by health care provider (principal) ==

== ENCOUNTER 2024-07-20 11:16 | Emergency (ER) | payer MEDICAID, SELFPAY ==
[2024-07-20 11:17] VITALS: BP 108/71; PULSE 80; RESP 18; TEMP 36.6; O2SAT 99
[2024-07-20 11:23] VITALS: BP 108/71; PULSE 80; RESP 18; TEMP 36.6; O2SAT 99
--- NOTE | 2024-07-20 11:36 | ED.GENADUL_ITS ---
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 zolmitriptan 2.5 mg tablet 2.5 mg PO ONCE PRN Patient Comments: TAKE 1 TABLET BY MOUTH ONCE DAILY NEEDED FOR MIGRAINE, TAKE ADDITIONAL TABLET AFTER 2 HOURS IF MIGRAINE PERSISTS. MAX 2 TABLETS PER DAY. magnesium oxide 400 mg magnesium capsule 400 mg PO DAILY Qty: 30 0RF ondansetron 4 mg tablet,disintegrating 4 mg PO Q6H PRN (Reason: nausea and vomiting) Qty: 30 0RF dicyclomine 10 mg capsule 10 mg PO TID Qty: 14 0RF polyethylene glycol 3350 17 gram/dose powder 17 g PO DAILY PRN Patient Comments: MIX 17G (1 CAPFUL) WITH 8 OUNCES OF LIQUID AND DRINK ONCE DAILY albuterol sulfate 2.5 mg /3 mL (0.083 %) solution for nebulization 2.5 mg inhalation BID PRN HPI General Mode of arrival: ambulatory . Date/Time Provider Initiated Documentation: 07/20/24 11:18 . Limitations to Documentation: no limitations . Information obtained by: patient . History of Present Illness 19 year old F presents to the emergency department with the chief complaint of sore throat, cough, described as moderate, Patient started experiencing this week(s) (2) and it has been constant. No relieving factors improve symptom(s), No exacerbating factors reported . Patient notes fever/chills. Patient did receive the following treatments prior to arrival, none Related Data Home Medications ?Medication ?Instructions ?Recorded ?Confirmed medroxyprogesterone 150 mg/mL 150 mg IM Q12W #1 mL 02/10/24 07/20/24 intramuscular syringe (Depo-Provera) albuterol sulfate 2.5 mg/3 mL 2.5 mg inhalation BID PRN 05/10/24 07/20/24 (0.083 %) solution for nebulization polyethylene glycol 3350 17 17 g PO DAILY PRN 05/10/24 07/20/24 gram/dose oral powder magnesium oxide 400 mg PO DAILY #30 caps 06/21/24 07/20/24 ondansetron 4 mg disintegrating 4 mg PO Q6H PRN nausea and 06/21/24 07/20/24 tablet vomiting #30 tabs zolmitriptan 2.5 mg tablet 2.5 mg PO ONCE PRN 06/21/24 07/20/24 dicyclomine 10 mg capsule 10 mg PO TID #14 caps 06/28/24 07/20/24 Previous Rx's ?Medication ?Instructions ?Recorded medroxyprogesterone 150 mg/mL 150 mg IM Q12W #1 mL 02/10/24 intramuscular syringe (Depo-Provera) magnesium oxide 400 mg PO DAILY #30 caps 06/21/24 ondansetron 4 mg disintegrating 4 mg PO Q6H PRN nausea and 06/21/24 tablet vomiting #30 tabs dicyclomine 10 mg capsule 10 mg PO TID #14 caps 06/28/24 Allergies Allergy/AdvReac Type Severity Reaction Status Date / Time fluconazole (From Vysrlucan) Allergy Mild nausea Verified 07/20/24 11:20 vomiting Penicillins Allergy hives Verified 07/20/24 11:20 General Stated Complaint: Sorethroat WINNIE: 4 Review of Systems All systems reviewed & are unremarkable except as noted in HPI and below Constitutional Constitutional: Reports chills, Reports fever(s) and Denies weakness Cardiovascular Cardiovascular: Denies chest pain and Denies dyspnea Respiratory Respiratory: Reports cough and Denies dyspnea Neurologic Neurologic: Denies weakness Psychiatric Psychiatric: Denies depression Exam Const General: no acute distress Orientation: alert [facility] Head: normal to inspection Ears: external ears normal, TM's normal bilaterally, EAC's normal and mastoids normal General nose exam: external nose normal Mouth: moist mucous membranes Throat: posterior oropharynx normal and uvula midline Eyes General: appearance normal, both eyes and all related structures Neck Neck: normal visual inspection, full ROM, no lymphadenopathy, no meningeal signs, trachea midline and supple Resp Effort & Inspection: normal respiratory effort and able to speak in complete sentences Auscultation: clear to auscultation bilaterally Cardio Jugular venous pressure: no JVD Rate: regular rate Skin General skin exam: no rashes or lesions noted Neuro General: patient alert and patient oriented x3 Extrem General: normal to inspection Psych Mental Status: mental status grossly normal Course Vital Signs Vital signs: Vital Signs Temperature 36.6 C 07/20/24 11:17 Pulse 80 07/20/24 11:17 Respiratory Rate 18 07/20/24 11:17 Blood Pressure 108/71 07/20/24 11:17 Pulse Oximetry 99 07/20/24 11:17 Temperature 36.6 C 07/20/24 11:23 Pulse 80 07/20/24 11:23 Respiratory Rate 18 07/20/24 11:23 Blood Pressure 108/71 07/20/24 11:23 Pulse Oximetry 99 07/20/24 11:23 Oxygen Delivery Method Room Air 07/20/24 11:23 Oxygen Flow Rate 0 07/20/24 11:23 Pain Level 9 07/20/24 11:23 Lab/Test Results Lab/Test Results: POC Strep Test-ABDULAZIZ(Rapid) Start: 07/20/24 11:18 Freq: .Rapid Strep Test Status: Active Protocol: Document 07/20/24 11:35 PRASHANT (Rec: 07/20/24 11:35 [id number]) Strep test-ABDULAZIZ(Rapid)-POC POC-Strep test-ABDULAZIZ (Rapid) Negative POC-Strep test-ABDULAZIZ (Rapid) Negative Medical Decision Making 19-year-old female comes in with 2 weeks of sore throat, subjective fevers or chills and a dry cough. Also has bilateral ear pain. Denies any rashes, travel, IV drug use. She is well-appearing speaking full sentences in no distress. She has no stridor or drooling. She has no neck swelling. No submandibular swelling. Her posterior pharynx is mildly erythematous with a midline uvula, no exudates, no pain over the hyoid or restricted neck movements. Clear lung sounds, no JVD. I suspect pharyngitis, will check a strep test. Also obtain a chest x-ray. She has no findings on exam or history to suggest entities such as retropharyngeal abscess, peritonsillar abscess or epiglottitis. Lab test and x-ray unremarkable. Patient eloped from the ER. She had decision- making capacity while she was here and I do not feel she requires a call back. Differential Diagnosis Differential Diagnosis: Strep, viral pharyngitis, pneumonia Quality:SDOH Health Related Social Needs: No Data to Display PFSH All Active Problems Cough (Acute) Acute sore throat (Acute) Migraine (Chronic) Acute epigastric pain (Acute) Tinnitus (Acute) Frequent UTI (Acute) Nausea (Acute) Depo-Provera contraceptive status (Acute) Medical History GERD (gastroesophageal reflux disease) refractory to PPI therapy Chronic pelvic pain in female Personal history of noncompliance with medical treatment Irritable bowel syndrome with constipation denies issues as of 02/12/23 Surgical History History of dental surgery Social History Smoking/Tobacco Use Status: Current every day Tobacco Type: e-cigarettes Smoking risk assessment performed?: Yes Alcohol Intake: never Drug use: Never Substance use type: does not use Household members: significant other and other Details: lives [facility]. 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 Sexually active: Yes Do you feel safe at home: Yes Do you feel safe in your relationship?: Yes
--- NOTE | 2024-07-20 11:55 | DI.RAD_ITS ---
Exam(s) XR CHEST 2V PA LATERAL EXAM: XR CHEST 2V PA LATERAL CLINICAL HISTORY: cough. TECHNIQUE: 2D digital imaging was performed. COMPARISON: No exams were available for comparison FINDINGS: 2 views: External cardiac device noted Heart size is normal. The mediastinum is not widened. Lungs are clear. No infiltrates nor pleural effusions. No evidence of pulmonary edema. IMPRESSION: No acute pulmonary findings. DATA REPOSITORY: RADIATION DOSE DELIVERED:
== END 2024-07-20 13:22 | disposition left against medical advice (07) ==
PROVIDERS: Emergency Provider Emergency Medicine; PCP Student in an Organized Health Care Education/Training Program
DX: J02.9 Acute pharyngitis, unspecified (principal); R50.9 Fever, unspecified; F17.290 Nicotine dependence, other tobacco product, uncomplicated
CPT/HCPCS: 87880; 99283; 71046; 87081

== ENCOUNTER 2024-08-11 20:24 | Outpatient (REF) | payer MEDICAID, SELFPAY | END 2024-08-11 20:25 | disposition home or self-care (01) | LOC: LBN 20:24 | PROVIDERS: PCP Student in an Organized Health Care Education/Training Program; Visit Provider Obstetrics & Gynecology | DX: N94.9 Unspecified condition associated with female genital organs and menstrual cycle (principal) | CPT/HCPCS: 87480; 87510; 87660 ==

== ENCOUNTER 2024-08-19 12:18 | Outpatient (CLI) | payer MEDICAID, SELFPAY ==
[2024-08-19 12:51] LABS: Abs Immature Grans 0.01 10^3/uL (0.0-0.06); HCT 39.7 % (36.0-46.0); HGB 13.6 g/dL (11.2-15.7); Immature Grans % 0.2 %; MCH 29.6 pg (27.0-33.0); MCHC 34.3 % (32.0-36.0); MCV 86 fL (80-95); MPV 10.2 fL (8.0-11.0); Platelet Count 301 10^3/uL (130-400); RBC 4.60 10^6/uL (3.93-5.22); RDW 11.9 % (11.7-14.6); RDW-SD 37.5 fL; WBC 4.58 10^3/uL (4.4-10.8)
[2024-08-19 14:08] LABS: Anion Gap 9.9 mmol/L (3-11); CO2 26.1 mmol/L (21.0-32.0); Chloride 104 mmol/L (98-107); Potassium 3.5 mmol/L (3.5-5.1); Sodium 140 mmol/L (136-145); TSH 1.15 uIU/mL (0.36-3.74)
== END 2024-08-19 12:19 | disposition home or self-care (01) ==
LOC: LBO 12:19
PROVIDERS: PCP Student in an Organized Health Care Education/Training Program; Visit Provider Student in an Organized Health Care Education/Training Program
DX: R10.9 Unspecified abdominal pain (principal); R00.0 Tachycardia, unspecified; J35.01 Chronic tonsillitis
CPT/HCPCS: 36415; 80051; 80323; 82533; 83520; 84439; 84443; 85025

== ENCOUNTER 2024-09-10 19:24 | Outpatient (REF) | payer MEDICAID, SELFPAY ==
[2024-09-10 15:51] LABS: Glucose Negative (Negative)
== END 2024-09-10 19:25 | disposition home or self-care (01) ==
LOC: NCHCN 19:24
PROVIDERS: PCP Student in an Organized Health Care Education/Training Program; Visit Provider Student in an Organized Health Care Education/Training Program
DX: R10.2 Pelvic and perineal pain (principal)
CPT/HCPCS: 81003